=== PATIENT | male | born 1980 | race Caucasian/White ===

== ENCOUNTER 2016-12-11 21:16 | Emergency (ER) | payer OTHER ==
[2016-12-11 21:24] VITALS: RESP 18; TEMP 98.2
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
--- NOTE | 2016-12-11 22:06 | XR ---
EXAMINATION TYPE: XR ankle complete LT DATE OF EXAM: 12/11/2016 9:58 PM COMPARISON: NONE HISTORY: Ankle pain TECHNIQUE: 3 views FINDINGS: Ankle mortise is anatomic. I see no fracture nor dislocation. Joint spaces are fairly miguel angel l. IMPRESSION: Negative left ankle exam.
[2016-12-11] MEDS ORDERED: ACETAMINOPHEN TAB 500 MG TAB PO STA (22:11)
--- NOTE | 2016-12-11 22:24 | XR ---
EXAMINATION TYPE: XR foot complete LT DATE OF EXAM: 12/11/2016 10:13 PM COMPARISON: NONE HISTORY: Slipped in shower. Pain. TECHNIQUE: 3 views FINDINGS: I see no fracture nor dislocation. Metatarsals are intact. Joint spaces are normal. IMPRESSION: Negative left foot exam.
[2016-12-11] MEDS ORDERED: IBUPROFEN 400 MG TAB PO STA (22:31)
[2016-12-11 22:56] VITALS: BP 129/66; PULSE 90
== END 2016-12-11 22:40 | disposition home or self-care (01) ==
LOC: EC 21:16
DX: S93.402A Sprain of unspecified ligament of left ankle, initial encounter (principal); F17.200 Nicotine dependence, unspecified, uncomplicated; Z79.899 Other long term (current) drug therapy; Z88.6 Allergy status to analgesic agent; Z91.030 Bee allergy status; W18.49XA Other slipping, tripping and stumbling without falling, initial encounter; Y92.002 Bathroom of unspecified non-institutional (private) residence as the place of occurrence of the external cause
CPT/HCPCS: 99283

== ENCOUNTER 2018-01-08 21:03 | Emergency (ER) | payer OTHER ==
[2018-01-08 21:23] VITALS: RESP 18; TEMP 98
--- NOTE | 2018-01-08 22:12 | XR ---
EXAMINATION TYPE: XR Hip RT and AP Pelvis DATE OF EXAM: 01/08/2018 COMPARISON: NONE HISTORY: Hip pain TECHNIQUE: A single AP view of the pelvis is obtained. Two views of the right hip are obtained. FINDINGS: The pelvic ring is intact. Proximal right femur and hip joint are intact. There is no sign of hip dysplasia. Sacroiliac joints appear normal. CONCLUSION: Normal pelvis and right hip exam.
[2018-01-08 23:10] VITALS: BP 132/68; PULSE 84
[2018-01-08] MEDS ORDERED: predniSONE 20 MG TAB PO STA (23:52)
[2018-01-08] MEDS ORDERED: IBUPROFEN 600 MG STARTER PACK 4 TAB BTL PO STA (23:53)
--- NOTE | 2018-01-08 23:56 | ED ---
General Adult HPI - General Chief complaint: Extremity Problem,Nontraumatic Stated complaint: right hip pain Time Seen by Provider: 01/08/18 21:52 Source: patient, family, RN notes reviewed, old records reviewed Mode of arrival: ambulatory Limitations: no limitations - History of Present Illness Initial comments: Chief complaint history of present illness a 37-year-old male to complaint of right hip area pain. Ongoing for several weeks. He is seeing his chiropractor' s been manipulating. Discomfort increased with walking. No direct injury. No fever. No rashes. No difficulty urinating or bowel movements. The patient is a disabled . Not currently employed. Denies heavy lifting - Related Data Home Medications Medication Instructions Recorded Confirmed Ibuprofen [Motrin] 800 mg PO Q8H PRN 10/04/17 01/08/18 Omeprazole 20 mg PO DAILY 10/04/17 01/08/18 Ranitidine HCl 150 mg PO DAILY 10/04/17 01/08/18 Zoloft (Unknown Dose) 2 tab PO DAILY 10/04/17 01/08/18 Previous Rx's Medication Instructions Recorded Ibuprofen [Motrin] 600 mg PO Q6HR PRN #20 tab 01/08/18 methylPREDNISolone Dose Pack 4 mg PO DIRECTED #21 package 01/08/18 [Medrol Dose Pack] Allergies Allergy/AdvReac Type Severity Reaction Status Date / Time ketorolac tromethamine Allergy Rash/Hives Verified 10/04/17 23:01 [From Toradol] naproxen Allergy Nausea & Verified 10/04/17 23:01 Vomiting & Diarrhea venom-honey bee Allergy Unknown Verified 10/04/17 23:01 [bee venom (honey bee)] Review of Systems ROS Statement: Those systems with pertinent positive or pertinent negative responses have been documented in the HPI. Review of systems denies headache chest pain shortness breath GI/ problems. His complaint is that of the right hip area. He does have a past history of sciatica but this is different per patient. All systems are reviewed. Past medical problems significant for chronic knee pain, sciatica, surgeries appendectomy couple tunnel release. He has ALLERGIES to ketorolac, naproxen and be venom. The patient occasionally uses alcohol. Smokes daily. Encouraged to stop. ROS Other: All systems not noted in ROS Statement are negative. Past Medical History Past Medical History: No Reported History Additional Past Medical History / Comment(s): chronic knee pain History of Any Multi-Drug Resistant Organisms: MRSA Date of last positivie culture/infection: 2008 MDRO Source:: thumb Past Surgical History: Appendectomy, Orthopedic Surgery Additional Past Surgical History / Comment(s): carpel tunnnel release, vascectomy, skin graft knee surg x4 Past Psychological History: PTSD Smoking Status: Current every day smoker Past Alcohol Use History: Occasional Past Drug Use History: None Reported General Exam - General Exam Comments Initial Comments: Pertinent physical exam. The patient complains of pain to the right hip area. Palpation increases discomfort. No bumps lumps bruises or rashes noted. The patient's range of motion is decreased secondary to the pain to the hip area. Not to the lumbar spine or sciatic region. Patient denying chest pain shortness breath GI or robins. Neurovascular status feet are intact. Pain with active and passive range of motion testing. Afebrile no chills. Vital signs temperature 90.8 pulse 84 respiratory rate 18 pulse ox 99% room air blood pressure 132/68 Limitations: no limitations Course Vital Signs 01/08/18 01/08/18 21:19 23:08 Temperature 98.0 F Pulse Rate 93 84 Respiratory 18 18 Rate Blood Pressure 137/85 132/68 O2 Sat by Pulse 97 99 Oximetry Medical Decision Making - Medical Decision Making Medical decision making; patient's here for chronic right hip area pain no injuries. X-rays of the hip area were done as well as pelvis and reviewed by radiologist Dr. Serrano. His final results is no acute irregularity. I discussed findings with the patient. He'll be placed on ibuprofen 600 every 6 hours and a Medrol Dosepak. Patient advised to follow-up with family physician. Disposition Clinical Impression: Hip pain, right Disposition: HOME SELF-CARE Condition: Fair Instructions: Hip Pain (ED) Additional Instructions: Gentle range of motion. Continue with ibuprofen and Medrol Dosepak. Follow-up with family physician. Prescriptions: Ibuprofen [Motrin] 600 mg PO Q6HR PRN #20 tab PRN Reason: Pain methylPREDNISolone Dose Pack [Medrol Dose Pack] 4 mg PO DIRECTED #21 package Referrals: Nik Paula MD [Primary Care Provider] - 1-2 days Time of Disposition: 23:56
== END 2018-01-09 00:07 | disposition home or self-care (01) ==
LOC: EC 21:03
DX: M25.551 Pain in right hip (principal); F17.200 Nicotine dependence, unspecified, uncomplicated; F43.10 Post-traumatic stress disorder, unspecified; Z86.14 Personal history of Methicillin resistant Staphylococcus aureus infection; Z98.890 Other specified postprocedural states; Z79.899 Other long term (current) drug therapy; Z88.6 Allergy status to analgesic agent; Z91.030 Bee allergy status
CPT/HCPCS: 73502; 99284; J7512

== ENCOUNTER 2018-12-28 16:57 | Emergency (ER) | payer MEDICARE, OTHER ==
[2018-12-28 17:07] VITALS: TEMP 98.8
--- NOTE | 2018-12-28 17:56 | ED ---
General Adult HPI - General Chief complaint: Extremity Injury, Upper Stated complaint: Elbow injury,Fall Time Seen by Provider: 12/28/18 17:07 Source: patient, RN notes reviewed, old records reviewed Mode of arrival: ambulatory Limitations: no limitations - History of Present Illness Initial comments: Patient is a 38-year-old male who presents today with left elbow pain. Patient reports that he fell on his left elbow causing pain with any range of motion. Symptoms started earlier today. Patient states that he was walking tripped and fell in parking lot. Patient states that he fell on his left elbow 1 week prior. Patient states he's had no previous orthopedic injuries. He denies any chest pain shortness of breath, nausea, vomiting, fevers, chills. Denies any abrasions over the arm. He reports that he is numbness and tingling down the hand. - Related Data Home Medications Medication Instructions Recorded Confirmed Ibuprofen [Motrin] 800 mg PO Q8H PRN 10/04/17 01/08/18 Omeprazole 20 mg PO DAILY 10/04/17 01/08/18 Ranitidine HCl 150 mg PO DAILY 10/04/17 01/08/18 Zoloft (Unknown Dose) 2 tab PO DAILY 10/04/17 01/08/18 Previous Rx's Medication Instructions Recorded Ibuprofen [Motrin] 600 mg PO Q6HR PRN #20 tab 01/08/18 methylPREDNISolone Dose Pack 4 mg PO DIRECTED #21 package 01/08/18 [Medrol Dose Pack] Allergies Allergy/AdvReac Type Severity Reaction Status Date / Time ketorolac tromethamine Allergy Rash/Hives Verified 12/28/18 17:08 [From Toradol] naproxen Allergy Nausea & Verified 12/28/18 17:08 Vomiting & Diarrhea venom-honey bee Allergy Unknown Verified 12/28/18 17:08 [bee venom (honey bee)] Review of Systems ROS Statement: Those systems with pertinent positive or pertinent negative responses have been documented in the HPI. ROS Other: All systems not noted in ROS Statement are negative. Past Medical History Past Medical History: No Reported History Additional Past Medical History / Comment(s): chronic knee pain History of Any Multi-Drug Resistant Organisms: MRSA Date of last positivie culture/infection: 2008 MDRO Source:: thumb Past Surgical History: Appendectomy, Orthopedic Surgery Additional Past Surgical History / Comment(s): carpel tunnnel release, vascectomy, skin graft knee surg x4 Past Psychological History: PTSD Smoking Status: Current every day smoker Past Alcohol Use History: Occasional Past Drug Use History: None Reported General Exam - General Exam Comments Initial Comments: 38-year-old male. Alert and oriented 3. Patient appears in no acute distress. Limitations: no limitations General appearance: alert, in no apparent distress Head exam: Present: atraumatic, normocephalic, normal inspection Eye exam: Present: normal appearance, PERRL, EOMI. Absent: scleral icterus, conjunctival injection, periorbital swelling ENT exam: Present: normal exam, mucous membranes moist Neck exam: Present: normal inspection. Absent: tenderness, meningismus, lymphadenopathy Respiratory exam: Present: normal lung sounds bilaterally. Absent: respiratory distress, wheezes, rales, rhonchi, stridor Cardiovascular Exam: Present: regular rate GI/Abdominal exam: Present: soft, normal bowel sounds. Absent: distended, tenderness, guarding, rebound, rigid Extremities exam: Present: normal inspection, full ROM, normal capillary refill. Absent: tenderness, pedal edema, joint swelling, calf tenderness Left Upper Arm exam: Present: normal inspection, full ROM Elbow exam: Present: normal inspection, tenderness (over olecranon). Absent: full ROM (Pain with ROM, pain with extension) Forearm Wrist exam: Present: normal inspection, full ROM Hand Wrist exam: Present: normal inspection, full ROM Vascular: Present: normal capillary refill Back exam: Present: normal inspection Neurological exam: Present: alert, oriented X3, CN II-XII intact Psychiatric exam: Present: normal affect, normal mood Skin exam: Present: warm, dry, intact, normal color. Absent: rash Course Vital Signs 12/28/18 17:05 Temperature 98.8 F Pulse Rate 101 H Respiratory 16 Rate Blood Pressure 147/83 O2 Sat by Pulse 95 Oximetry Medical Decision Making - Medical Decision Making 38-year-old male presents today with left elbow pain after falling on it. Patient reports he fell on his left olecranon. He has range of motion noted. Normal sensation distally. He reports pain within the triceps and shooting down the hand. X-ray of the elbow was completed. This is negative for any acute process. Patient informed of these results. Patient placed in Fernando wrap and advised to use rest ice and elevate the elbow. Discussed falling up with orthopedic. All questions answered. - Radiology Data Radiology results: report reviewed Negative left elbow exam. Disposition Clinical Impression: Left elbow contusion Disposition: HOME SELF-CARE Condition: Good Instructions (If sedation given, give patient instructions): Elbow Sprain (ED) Additional Instructions: Follow-up with your primary care physician. Rest, ice, and elevate elbow. Take Tylenol for pain. Return to emergency department if any alarming signs or symptoms occur. Patient should return to emergency department if any alarming signs or symptoms occur. Is patient prescribed a controlled substance at d/c from ED?: No Referrals: Nik Paula MD [Primary Care Provider] - 1-2 days Hawk Rollins MD [STAFF PHYSICIAN] - 1-2 days Time of Disposition: 18:10
--- NOTE | 2018-12-28 18:02 | XR ---
EXAMINATION TYPE: XR elbow complete LT DATE OF EXAM: 12/28/2018 COMPARISON: NONE HISTORY: Elbow pain TECHNIQUE: 3 views FINDINGS: I see no fracture nor dislocation. Joint spaces are normal. There is no sign of joint effus ion. IMPRESSION: Negative left elbow exam.
[2018-12-28] MEDS ORDERED: Acetaminophen-Codeine 300-30mg TAB PO STA (18:08)
[2018-12-28 18:41] VITALS: BP 129/84; PULSE 88; RESP 18
== END 2018-12-28 18:35 | disposition home or self-care (01) ==
LOC: EC 16:57
DX: S50.02XA Contusion of left elbow, initial encounter (principal); F43.10 Post-traumatic stress disorder, unspecified; F17.200 Nicotine dependence, unspecified, uncomplicated; Z79.899 Other long term (current) drug therapy; Z88.6 Allergy status to analgesic agent; Z91.030 Bee allergy status; W00.0XXA Fall on same level due to ice and snow, initial encounter
CPT/HCPCS: 99284

== ENCOUNTER → 2019-01-06 | Outpatient (CLI) | payer MEDICARE, OTHER ==
[2019-01-06 16:50] LABS: Basophils # (A) 0.1 k/uL (0-0.2); Basophils % (A) 1 %; Eosinophils # (A) 0.2 k/uL (0-0.7); Eosinophils % (A) 3 %; HCT 48.9 % (39.0-53.0); HGB 15.8 gm/dL (13.0-17.5); Lymphocytes % (A) 34 %; MCH 29.8 pg (25.0-35.0); MCHC 32.3 g/dL (31.0-37.0); Mean Platelet Volume 6.8; Monocytes # (A) 0.5 k/uL (0-1.0); Monocytes % (A) 6 %; Neutrophils # (A) 4.9 k/uL (1.3-7.7); Neutrophils % (A) 55 %; Platelet Count 309 k/uL (150-450); RBC 5.32 m/uL (4.30-5.90); RDW 13.3 % (11.5-15.5)
[2019-01-07 02:15] LABS: Calcium 9.5 mg/dL (8.7-10.3); Potassium 4.2 mmol/L (3.5-5.5)
== END | disposition home or self-care (01) ==
LOC: LABWHC1 16:07
PROVIDERS: ATTEND Orthopaedic Surgery
DX: Z01.818 Encounter for other preprocedural examination (principal)
CPT/HCPCS: 36415; 80048; 85025; 93005

== ENCOUNTER 2019-02-12 11:57 | Emergency (ER) | payer MEDICARE, OTHER ==
[2019-02-12 12:13] VITALS: TEMP 98.1
[2019-02-12] MEDS ORDERED: DIPH,PERTUS(ACELL)TETVAC-LF 0.5 ML VIAL IM ONE (13:00)
[2019-02-12] MEDS ORDERED: predniSONE 50 MG TAB PO STA ×2 (13:00→13:37)
--- NOTE | 2019-02-12 13:32 | ED ---
General Adult HPI - General Chief complaint: Skin/Abscess/Foreign Body Stated complaint: Hand swolled Time Seen by Provider: 02/12/19 12:14 Source: patient, RN notes reviewed, old records reviewed Mode of arrival: ambulatory Limitations: no limitations - History of Present Illness Initial comments: 38-year-old male patient with no pertinent past medical history presents to ED with primary complaint of ring stuck on left fourth digit. Patient reports that approximately 3 days ago he began developing a minor ALLERGIC reaction after fishing. Patient reports that he had some minor swelling and skin excoriations on the dorsal aspect of his hands bilaterally and the medial aspect of his left ankle. Patient reports that he was seen by his primary care physician and started on Benadryl for this problem. Patient states that last 36 hours he has had some swelling in his left fourth digit of his finger resulting in his ring being stuck on his finger. Patient denies any other complaints. Patient denies any facial swelling or difficulty breathing. Patient denies any abdominal pain nausea vomiting or diarrhea. Systemic: Pt denies fatigue, myalgia, fever/chills. Pt denies weakness, night sweats, weight loss. Neuro: Pt denies headache, visual disturbances, syncope or pre-syncope. HEENT: Pt denies ocular discharge or irritation, otalgia, rhinorrhea, pharyngitis or notable lymphadenopathy. Cardiopulmonary: Pt denies chest pain, SOB, heart palpitations, dyspnea on exertion. Abdominal/GI: Pt denies abdominal pain, n/v/d. : Pt denies dysuria, burning w/ urination, frequency/urgency. Denies new onset urinary or bowel incontinence. MSK: Pt denies myalgia, loss of strength or function in extremities. Neuro: Pt denies new onset weakness, paresthesias. - Related Data Home Medications Medication Instructions Recorded Confirmed Ibuprofen [Motrin] 800 mg PO Q8H PRN 10/04/17 01/08/18 Omeprazole 20 mg PO DAILY 10/04/17 01/08/18 Ranitidine HCl 150 mg PO DAILY 10/04/17 01/08/18 Zoloft (Unknown Dose) 2 tab PO DAILY 10/04/17 01/08/18 Previous Rx's Medication Instructions Recorded Ibuprofen [Motrin] 600 mg PO Q6HR PRN #20 tab 01/08/18 methylPREDNISolone Dose Pack 4 mg PO DIRECTED #21 package 01/08/18 [Medrol Dose Pack] predniSONE 50 mg PO DAILY #4 tab 02/12/19 Allergies Allergy/AdvReac Type Severity Reaction Status Date / Time ketorolac tromethamine Allergy Rash/Hives Verified 12/28/18 17:08 [From Toradol] naproxen Allergy Nausea & Verified 12/28/18 17:08 Vomiting & Diarrhea venom-honey bee Allergy Unknown Verified 12/28/18 17:08 [bee venom (honey bee)] Review of Systems ROS Statement: Those systems with pertinent positive or pertinent negative responses have been documented in the HPI. ROS Other: All systems not noted in ROS Statement are negative. Past Medical History Past Medical History: No Reported History Additional Past Medical History / Comment(s): chronic knee pain History of Any Multi-Drug Resistant Organisms: MRSA Date of last positivie culture/infection: 2008 MDRO Source:: thumb Past Surgical History: Appendectomy, Orthopedic Surgery Additional Past Surgical History / Comment(s): carpel tunnnel release, vascectomy, skin graft knee surg x4, hip surgery Past Psychological History: Anxiety, PTSD Smoking Status: Former smoker Past Alcohol Use History: Occasional Past Drug Use History: None Reported General Exam - General Exam Comments Initial Comments: Constitutional: NAD, AOX3, Pt has pleasant affect. HEENT: NC/AT, trachea midline, neck supple, no lymphadenopathy. Posterior pharynx non erythematous, without exudates. External ears appear normal, without discharge. Mucous membranes moist. Eyes PERRLA, EOM intact. There is no scleral icterus. No pallor noted. Cardiopulmonary: RRR, no murmurs, rubs or gallops, no JVD noted. Lungs CTAB in anterior and posterior fontaine. No peripheral edema. Abdominal exam: Abdomen soft and non-distended. Abdomen non-tender to palpation in all 4 quadrants. Bowel sounds active in LLQ. No hepatosplenomegaly. No ecchymosis Neuro: CN II-XII grossly intact. No nuchal rigidity. MSK: No posterior calf tenderness bilaterally, homans sign negative bilaterally. Posterior tibialis and radial pulse +2 bilaterally. Sensation intact in upper and lower extremities. Full active ROM in upper and lower extremities, 5/5 stregnth. Derm: Mild amount of swelling on 4th digit of right hand, ring unable to be removed. Scabbed skin excoriations noted on dorsal aspect of hands bilaterally, medial aspect of left ankle. No other areas of rash noted. No angioedema. Limitations: no limitations Course Vital Signs 02/12/19 12:10 Temperature 98.1 F Pulse Rate 103 H Respiratory 18 Rate Blood Pressure 136/79 O2 Sat by Pulse 98 Oximetry Medical Decision Making - Medical Decision Making 38-year-old male patient with no pertinent past medical history presents to ED with primary complaint of ring stuck on left fourth digit. Patient reports that approximately 3 days ago he began developing a minor ALLERGIC reaction after fishing. Patient reports that he had some minor swelling and skin excoriations on the dorsal aspect of his hands bilaterally and the medial aspect of his left ankle. Patient reports that he was seen by his primary care physician and started on Benadryl for this problem. Patient states that last 36 hours he has had some swelling in his left fourth digit of his finger resulting in his ring being stuck on his finger. Patient denies any other complaints. Patient denies any facial swelling or difficulty breathing. Patient denies any abdominal pain nausea vomiting or diarrhea. Pt VSS, afebrile. Physical exam displayed: Mild amount of swelling on 4th digit of right hand, ring unable to be removed. Scabbed skin excoriations noted on dorsal aspect of hands bilaterally, medial aspect of left ankle. No other areas of rash noted. No angioedema. Ring was cut and removed. Patient able refill less than 2 seconds affected digit. Full active range of motion of digit. Patient minutes to one dose of prednisone in ED, tetanus updated. Patient will be placed on 4 additional days of prednisone. Patient will continue to take Benadryl as needed. Patient will follow up with primary care provider in 1-2 days for continued evaluation of ALLERGIC reaction. Pt does have epipen at home and is well educated on s/sx of anaphylaxis. Case discussed with Dr. Rogers. Disposition Clinical Impression: Allergic reaction Disposition: HOME SELF-CARE Condition: Stable Instructions (If sedation given, give patient instructions): Acute Rash (ED) Additional Instructions: Patient to adhere to previously discussed treatment plan and will take medication(s) as directed. Patient to follow up with PCP in 1-2 days. Patient to return to ED if symptoms do not improve. Please take steroids as prescribed. Please use Benadryl as needed. Please follow-up with primary care provider tomorrow. Please return immediately if symptoms worsen anyway. Prescriptions: predniSONE 50 mg PO DAILY #4 tab Is patient prescribed a controlled substance at d/c from ED?: No Referrals: Nik Paula MD [Primary Care Provider] - 1-2 days
[2019-02-12 13:43] VITALS: BP 103/84; PULSE 60; RESP 20
== END 2019-02-12 13:49 | disposition home or self-care (01) ==
LOC: EC 11:57
DX: T78.40XA Allergy, unspecified, initial encounter (principal); Z23 Encounter for immunization; S60.512A Abrasion of left hand, initial encounter; S60.511A Abrasion of right hand, initial encounter; S90.512A Abrasion, left ankle, initial encounter; F41.9 Anxiety disorder, unspecified; Z79.899 Other long term (current) drug therapy; Z88.5 Allergy status to narcotic agent; Z88.6 Allergy status to analgesic agent; Z91.030 Bee allergy status; Z87.891 Personal history of nicotine dependence; W49.04XA Ring or other jewelry causing external constriction, initial encounter
CPT/HCPCS: 90715; 99283; 90471; J7512

== ENCOUNTER 2019-08-21 22:33 | Observation (INO) | payer MEDICARE, OTHER ==
[2019-08-22] MEDS ORDERED: CLINDAMYCIN 600 MG in DEXTROSE 5% IN WATER 50 ML IVPB STA ×2 (01:16)
--- NOTE | 2019-08-22 01:30 | XR ---
EXAMINATION TYPE: XR elbow complete LT DATE OF EXAM: 08/22/2019 COMPARISON: 12/28/2018 HISTORY: Pain and swelling TECHNIQUE: 3 views FINDINGS: I see no fracture nor dislocation. There is soft tissue swelling over the olecranon process of the ulna. There is no sign of elbow joint effusion. IMPRESSION: Significant posterior soft tissue swelling that could relate to olecranon bursitis. No ev idence of a foreign body. Soft tissue swelling is a change compared to old exam. No fracture.
--- NOTE | 2019-08-22 02:25 | ED ---
Skin/Abscess/FB HPI - General Source: patient Mode of arrival: ambulatory Limitations: no limitations <Mehreen Perrin - Last Filed: 08/22/19 04:35> <Pao Hobson - Last Filed: 08/23/19 06:25> - General Chief complaint: Skin/Abscess/Foreign Body Stated complaint: L Elbow Swelling Time Seen by Provider: 08/22/19 01:48 - History of Present Illness Initial comments: 38 year male presents emergency department for evaluation of left elbow pain and swelling. Patient states that approximately 10 days ago he had a sliver they removed from his left elbow, patient states that yesterday he developed redness and then overnight there is significant swelling over the point of the elbow he states it is extending down towards the forearm. Patient states it hurts at maximum flexion and extension. Patient denies a fever or chills night sweats or flulike symptoms. Patient denies any significant comorbidities. Patient states last tetanus was in 2009. Remaining ROS (-). (Mehreen Perrin) - Related Data Home Medications Medication Instructions Recorded Confirmed Aspirin EC [Ecotrin] 325 mg PO DIRECTED PRN 08/22/19 08/22/19 EPINEPHrine (Auto Inject) [Epipen] 0.3 mg IM ONCE PRN 08/22/19 08/22/19 Gabapentin [Neurontin] 400 mg PO TID 08/22/19 08/22/19 HYDROcodone/APAP 10-325MG [[place] 1 tab PO Q4HR PRN 08/22/19 08/22/19 10-325] Methocarbamol [Robaxin] 750 mg PO QID PRN 08/22/19 08/22/19 PARoxetine HCL [Paxil] 60 mg PO DAILY 08/22/19 08/22/19 Prazosin HCl 6 mg PO HS 08/22/19 08/22/19 traZODone HCL [Desyrel] 100 mg PO HS 08/22/19 08/22/19 Allergies Allergy/AdvReac Type Severity Reaction Status Date / Time ketorolac tromethamine Allergy Rash/Hives Verified 08/22/19 09:53 [From Toradol] naproxen Allergy Nausea & Verified 08/22/19 09:53 Vomiting & Diarrhea venom-honey bee Allergy Unknown Verified 08/22/19 09:53 [bee venom (honey bee)] Review of Systems ROS Other: All systems not noted in ROS Statement are negative. <AydinMehreen L - Last Filed: 08/22/19 04:35> ROS Other: All systems not noted in ROS Statement are negative. <HobsonPao P - Last Filed: 08/23/19 06:25> ROS Statement: Those systems with pertinent positive or pertinent negative responses have been documented in the HPI. Past Medical History Past Medical History: No Reported History Additional Past Medical History / Comment(s): chronic knee pain History of Any Multi-Drug Resistant Organisms: MRSA Date of last positivie culture/infection: 2008 MDRO Source:: thumb Past Surgical History: Appendectomy, Orthopedic Surgery Additional Past Surgical History / Comment(s): carpel tunnnel release, vascectomy, skin graft knee surg x4, hip surgery Past Psychological History: Anxiety, PTSD Smoking Status: Former smoker Past Alcohol Use History: Occasional Past Drug Use History: None Reported <Mehreen Perrin - Last Filed: 08/22/19 04:35> - Past Family History Father Family Medical History: No Reported History Additional Family Medical History / Comment(s): Father is alive at age 61 was no major medical problems. Mother Family Medical History: No Reported History Additional Family Medical History / Comment(s): Mother is alive at age 56 with history of spinal surgeries and neurological disorders. Patient's troponin is and one sister with no major medical problems. Patient has 1 son and 1 daughter with no major medical problems. <Pao Hobson P - Last Filed: 08/23/19 06:25> General Exam Limitations: no limitations <AydinSoheilaMehreen L - Last Filed: 08/22/19 04:35> - General Exam Comments Initial Comments: General: The patient is awake and alert, in no distres Eye: Pupils are equal, round and reactive to light, extra-ocular movements are intact. No nystagmus. There is normal conjunctiva bilaterally. No signs of icterus. Cardiovascular: There is a regular rate and rhythm. No murmur, rub or gallop is appreciated. Respiratory: Lungs are clear to auscultation, respirations are non-labored, breath sounds are equal. No wheezes, stridor, rales, or rhonchi. Musculoskeletal: Upon inspection the elbows bilaterally there is significant swelling over the point of the left elbow. small break in skin. Pain with flexion at maximum degree and extension. No pain out of proportion. No tenderness to palpation over the joint line. Strength 5/5. Sensation intact. Radial pulses equal bilaterally 2+. Neurological: A&O x 3. CN II-XII intact grossly, There are no obvious motor or sensory deficits. Coordination appears grossly intact. Speech is normal. Skin: Skin is warm and dry and no rashes or lesions are noted. Psychiatric: Cooperative, appropriate mood & affect, normal judgment. (Mehreen Perrin) Course Vital Signs 08/21/19 08/22/19 08/22/19 22:39 02:44 04:46 Temperature 98 F Pulse Rate 91 76 79 Pulse Rate [ Bilateral Dorsalis Pedis] Respiratory 20 18 18 Rate Blood Pressure 130/93 128/81 130/91 Blood Pressure [Left Arm Supine] O2 Sat by Pulse 96 96 97 Oximetry 08/22/19 08/22/19 08/22/19 06:39 15:00 15:27 Temperature 97.9 F 97.9 F Pulse Rate 73 Pulse Rate [ 88 Bilateral Dorsalis Pedis] Respiratory 18 17 17 Rate Blood Pressure 137/92 Blood Pressure 136/80 [Left Arm Supine] O2 Sat by Pulse 97 98 Oximetry Medical Decision Making - Lab Data Result diagrams: 08/22/19 02:13 08/22/19 02:13 <Mehreen Perrin - Last Filed: 08/22/19 04:35> - Lab Data Result diagrams: 08/22/19 02:13 08/22/19 02:13 <Pao Hobson - Last Filed: 08/23/19 06:25> - Medical Decision Making 38yo male presents for evaluation of left elbow redness and swelling. Obvious bursitis with surrounding cellulitis on physical examination. Given the extensiveness the cellulitis if the patient should be admitted for IV antibiotics. Patient is given 600 mg of clindamycin in the emergency department. labs stable, no leukocytosis. Patient appears nontoxic. No vital signs or labs consistent with sepsis. Patient case discussed with attending who spoke with admitting provider. Ortho on consult. (Mehreen Perrin) Patient care discussed with Dr. Mckay who agrees with plan for admission with orthopedic consultation. (Pao Hobson) - Lab Data Lab Results 08/22/19 08/22/19 08/22/19 Range/Units 02:13 02:13 02:13 WBC 10.0 (3.8-10.6) k/uL RBC 4.74 (4.30-5.90) m/uL Hgb 12.8 L (13.0-17.5) gm/dL Hct 43.2 (39.0-53.0) % MCV 91.3 (80.0-100.0) fL MCH 27.0 (25.0-35.0) pg MCHC 29.6 L (31.0-37.0) g/dL RDW 13.2 (11.5-15.5) % Plt Count 263 (150-450) k/uL Neutrophils % 57 % Lymphocytes % 29 % Monocytes % 6 % Eosinophils % 4 % Basophils % 1 % Neutrophils # 5.7 (1.3-7.7) k/uL Lymphocytes # 2.9 (1.0-4.8) k/uL Monocytes # 0.6 (0-1.0) k/uL Eosinophils # 0.4 (0-0.7) k/uL Basophils # 0.1 (0-0.2) k/uL Sodium 139 (137-145) mmol/L Potassium 4.2 (3.5-5.1) mmol/L Chloride 106 (98-107) mmol/L Carbon Dioxide 22 (22-30) mmol/L Anion Gap 11 mmol/L BUN 17 (9-20) mg/dL Creatinine 1.02 (0.66-1.25) mg/dL Est GFR (CKD-EPI)AfAm >90 (>60 ml/min/1.73 sqM) Est GFR (CKD-EPI)NonAf >90 (>60 ml/min/1.73 sqM) Glucose 103 H (74-99) mg/dL Plasma Lactic Acid [place] 1.5 (0.7-2.0) mmol/L Calcium 9.6 (8.4-10.2) mg/dL Total Bilirubin 0.2 (0.2-1.3) mg/dL AST 32 (17-59) U/L ALT 38 (21-72) U/L Alkaline Phosphatase 63 (38-126) U/L Total Protein 7.3 (6.3-8.2) g/dL Albumin 4.3 (3.5-5.0) g/dL Disposition Is patient prescribed a controlled substance at d/c from ED?: No Time of Disposition: 02:56 Decision to Admit Reason: Admit from EC Decision Date: 08/22/19 Decision Time: 02:56 <Mehreen Perrin - Last Filed: 08/22/19 04:35> <Pao Hobson - Last Filed: 08/23/19 06:25> Clinical Impression: Septic bursitis, Cellulitis, Left elbow pain Disposition: ADMITTED IP TO THIS HOSP Condition: Stable
[2019-08-22 02:35] LABS: Basophils # (A) 0.1 k/uL (0-0.2); Basophils % (A) 1 %; Eosinophils # (A) 0.4 k/uL (0-0.7); Eosinophils % (A) 4 %; HCT 43.2 % (39.0-53.0); HGB 12.8 gm/dL (13.0-17.5); Lymphocytes # (A) 2.9 k/uL (1.0-4.8); Lymphocytes % (A) 29 %; MCHC 29.6 g/dL (31.0-37.0); MCV 91.3 fL (80.0-100.0); Mean Platelet Volume 6.8; Monocytes # (A) 0.6 k/uL (0-1.0); Monocytes % (A) 6 %; Neutrophils # (A) 5.7 k/uL (1.3-7.7); Neutrophils % (A) 57 %; Platelet Count 263 k/uL (150-450); RBC 4.74 m/uL (4.30-5.90); RDW 13.2 % (11.5-15.5)
[2019-08-22 02:42] LABS: ALT 38 U/L (21-72); AST 32 U/L (17-59); African American GFR (CKD) >90 (>60 ml/min/1.73 sqM); Albumin 4.3 g/dL (3.5-5.0); Alkaline Phosphatase 63 U/L (38-126); Anion Gap 11 mmol/L; Blood Urea Nitrogen 17 mg/dL (9-20); Calcium 9.6 mg/dL (8.4-10.2); Carbon Dioxide 22 mmol/L (22-30); Chloride 106 mmol/L (98-107); Glucose 103 mg/dL (74-99); Non-African American GFR(CKD) >90 (>60 ml/min/1.73 sqM); Potassium 4.2 mmol/L (3.5-5.1); Sodium 139 mmol/L (137-145); Total Bilirubin 0.2 mg/dL (0.2-1.3); Total Protein 7.3 g/dL (6.3-8.2)
[2019-08-22] MEDS ORDERED: NALOXONE 0.4 MG/ML 1 ML VIAL IV PRN (02:52)
[2019-08-22] MEDS ORDERED: ACETAMINOPHEN TAB 325 MG TAB PO PRN (02:52)
[2019-08-22] MEDS: HYDROcodone/APAP 7.5-325MG 1 EACH TAB PO PRN ×2 (04:45→09:24)
[2019-08-22] MEDS: SODIUM CHLORIDE 0.9% 1,000 ML IV SCH ×2 (04:45→14:23)
--- NOTE | 2019-08-22 09:22 | P.CNOR ---
History of Present Illness - [facility] Consult date: 08/22/19 History of present illness: This patient is a 38-year-old male past medical history of MRSA that presented to [facility] ER last night on 08/21/19 for complaints of left elbow pain. The patient states about 7-10 days ago he noticed a sliver in his elbow, after he had been helping his friend work on his home. He states he pulled this sliver out without any issues. He states he began to notice swelling, erythema, warmth of the left elbow yesterday. He states the pain had increased throughout the day. He also started to notice the erythema was extending from his elbow into his lower forearm. Therefore, he decided to present to the emergency department for further evaluation. The patient was placed on IV clindamycin in the emergency department, the patient was admitted to internal medicine with a consult placed to orthopedic surgery. The time of exam, the patient localizes pain to his left elbow with radiation into his mid forearm. He denies pain in his hand, wrist, shoulder. He states he otherwise feels well. He denies chest pain, shortness breath, nausea, vomiting, fevers, chills, feelings of generalized malaise. Vital signs stable. Past Medical History Past Medical History: No Reported History Additional Past Medical History / Comment(s): chronic knee pain History of Any Multi-Drug Resistant Organisms: MRSA Year Discovered:: 2008 MDRO Source:: thumb Past Surgical History: Appendectomy, Orthopedic Surgery Additional Past Surgical History / Comment(s): carpel tunnnel release, vascectomy, skin graft knee surg x4, hip surgery Past Psychological History: Anxiety, PTSD Smoking Status: Former smoker Past Alcohol Use History: Occasional Past Drug Use History: None Reported Medications and Allergies Allergies Allergy/AdvReac Type Severity Reaction Status Date / Time ketorolac tromethamine Allergy Rash/Hives Verified 08/21/19 22:42 [From Toradol] naproxen Allergy Nausea & Verified 08/21/19 22:42 Vomiting & Diarrhea venom-honey bee Allergy Unknown Verified 08/21/19 22:42 [bee venom (honey bee)] Physical Examination On examination, the patient is sitting up in bed in no apparent distress. He is alert and oriented 3. His head appears normocephalic and atraumatic. His breathing appears nonlabored. On inspection of the left elbow, there is diffuse swelling over the tip of the olecranon. There is also swelling and erythema extending into the mid forearm. There is fluctuance over the tip of the olecranon. There is tenderness to palpation of the elbow in the mid forearm. There is no tenderness to palpation of the shoulder, humerus, wrist, hand. There is no pain with passive range of motion of the wrist or fingers. Motor and sensory function are intact of the left upper extremity. Radial pulse palpable, the fingers and thumb are warm and well-perfused with brisk capillary refill. Results Elbow x-ray left 08/22/19: No acute fractures or bony abnormalities. Significant posterior soft tissue swelling. - Labs Labs: Abnormal Lab Results - Last 24 Hours (Table) 08/22/19 08/22/19 Range/Units 02:13 02:13 Hgb 12.8 L (13.0-17.5) gm/dL MCHC 29.6 L (31.0-37.0) g/dL Glucose 103 H (74-99) mg/dL H & H 08/22/19 Range/Units 02:13 Hgb 12.8 L (13.0-17.5) gm/dL Hct 43.2 (39.0-53.0) % Result Diagrams: 08/22/19 02:13 08/22/19 02:13 Assessment and Plan Assessment: Septic olecranon bursitis, left. Plan: - Clinical and x-ray findings were discussed with the patient. I recommended a bedside aspiration of the left olecranon bursa. The fluid was sent for cell count, culture, crystal analysis. A compressive Fernando wrap was applied following the aspiration. - Warm compresses to the left elbow. - Continue IV antibiotics and pain medication per admitting team. - We will continue to follow the patient while he remains inpatient and make recommendations as needed. Patient discussed with Dr. Cotter. Procedure: Verbal consent for an olecranon bursa aspiration was obtained. The skin over the posterior aspect of the olecranon was prepped with ChloraPrep. Using sterile technique, an 18-gauge needle was inserted directly into the olecranon bursa and 2 mL's of blood-tinged yellow fluid was aspirated. There was not purulence. The needle was withdrawn and a bandage was applied. Patient tolerated this well. A compressive was applied following this procedure. Fluid was sent for cell count, culture, crystal analysis.
[2019-08-22] MEDS ORDERED: METHOCARBAMOL 750 MG TAB PO PRN (11:04)
[2019-08-22 11:13] LABS: Appearance,BF Bloody; Color,BF Red; Nucleated Cells, Body Fluid 500 /uL; RBC, Body Fluid 64200 /uL
[2019-08-22 11:15] LABS: Mononuclear WBC,Body Fluid 15 %; Polynuclear WBC,Body Fluid 85 %; Total Cells Counted,Body Fluid 100
[2019-08-22] MEDS ORDERED: VANCOMYCIN IV PER PHARMACY 1 EACH MISC MISCELLANE SCH (11:15)
[2019-08-22] MEDS ORDERED: VANCOMYCIN 1,750 MG in SODIUM CHLORIDE 0.9% 500 ML 500 ML IVPB ONE (11:30)
[2019-08-22] MEDS: GABAPENTIN 400 MG CAP PO SCH ×3 (12:19→21:23)
[2019-08-22] MEDS: PARoxetine 20 MG TAB PO SCH (12:32)
[2019-08-22] MEDS: HYDROcodone/APAP 10-325MG 1 EACH TAB PO PRN ×3 (13:26→22:26)
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
[2019-08-22] MEDS: PIPERACILLIN-TAZOBACTAM 3.375 GM in SODIUM CHLORIDE 0.9% 100 ML IVPB SCH (18:01)
[2019-08-22] MEDS: VANCOMYCIN 1,750 MG in SODIUM CHLORIDE 0.9% 500 ML 500 ML IVPB SCH (21:21)
[2019-08-22] MEDS: HEPARIN SODIUM,PORCINE 5,000 UNIT/ML 1 ML VIAL SQ SCH (21:22)
[2019-08-22] MEDS: PRAZOSIN 1 MG CAP PO SCH (21:23)
[2019-08-22] MEDS: traZODone HCL 100 MG TAB PO SCH (21:23)
[2019-08-23] MEDS: SODIUM CHLORIDE 0.9% 1,000 ML IV SCH ×3 (00:04→20:08)
[2019-08-23] MEDS: PIPERACILLIN-TAZOBACTAM 3.375 GM in SODIUM CHLORIDE 0.9% 100 ML IVPB SCH ×3 (00:05→16:04)
[2019-08-23] MEDS: HYDROcodone/APAP 10-325MG 1 EACH TAB PO PRN ×4 (04:29→20:10)
[2019-08-23] MEDS: VANCOMYCIN 1,750 MG in SODIUM CHLORIDE 0.9% 500 ML 500 ML IVPB SCH ×3 (04:30→20:08)
--- NOTE | 2019-08-23 08:12 | P.PN ---
Subjective Progress Note Date: 08/23/19 This patient is a 38-year-old male past medical history of MRSA that presented to [facility] ER last night on 08/21/19 for complaints of left elbow pain. The patient states about 7-10 days ago he noticed a sliver in his elbow, after he had been helping his friend work on his home. He states he pulled this sliver out without any issues. He states he began to notice swelling, erythema, warmth of the left elbow yesterday. He states the pain had increased throughout the day. He also started to notice the erythema was extending from his elbow into his lower forearm. Therefore, he decided to present to the emergency department for further evaluation. The patient was placed on IV clindamycin in the emergency department, the patient was admitted to internal medicine with a consult placed to orthopedic surgery. The time of exam, the patient localizes pain to his left elbow with radiation into his mid forearm. He denies pain in his hand, wrist, shoulder. He states he otherwise feels well. He denies chest pain, shortness breath, nausea, vomiting, fevers, chills, feelings of generalize d malaise. Vital signs stable. 08/23/19: Patient examined bedside this morning. He is experiencing discomfort in the left elbow, although it feels slightly better compared to yesterday. He states he is able to achieve full range of motion of the elbow without pain. He also feels well. He denies fever, chills, nausea, vomiting. He denies any new complaints today. Objective - Vital Signs Vital signs: Vital Signs Temp 97.6 F 08/23/19 06:53 Pulse 86 08/23/19 06:53 Resp 16 08/23/19 06:53 BP 101/66 08/23/19 06:53 Pulse Ox 93 L 08/23/19 06:53 Intake & Output 08/22/19 08/23/19 08/23/19 18:59 06:59 18:59 Intake Total 1900 180 Balance 1900 180 Intake: Intake, IV Titration 650 Amount Clindamycin 600 mg In 50 Dextrose 5% in Water 50 ml @ 50 mls/hr IVPB ONCE STA Rx#:[id number] Piperacillin-Tazobactam 3 100 .375 gm In Sodium Chloride 0.9% 100 ml @ 25 mls/hr IVPB Q8HR [facility] Rx# :[id number] Vancomycin 1,750 mg In 500 Sodium Chloride 0.9% 500 ml 500 ml @ 167 mls/hr IVPB Q8H [facility] Rx#: [id number] Oral 1250 180 Other: Voiding Method Toilet Toilet # Voids 3 - Exam On examination, the patient is sitting up in bed in no apparent distress. He is alert and oriented 3. On inspection of the left elbow, there is diffuse swelling over the tip of the olecranon, improved from yesterday. There is also swelling and erythema extending into the mid forearm, improved from yesterday. There is fluctuance over the tip of the olecranon. There is mild tenderness to palpation of the proximal forearm, no fluctuance. There is no tenderness to palpation of the shoulder, humerus, wrist, hand. Patient is able to perform full active ROM of the elbow without pain, no pain with PROM. There is no pain with passive range of motion of the wrist or fingers. Motor and sensory function are intact of the left upper extremity. Radial pulse palpable, the fingers and thumb are warm and well-perfused with brisk capillary refill. - Labs CBC & Chem 7: 08/22/19 02:13 08/22/19 02:13 Labs: Microbiology - Last 24 Hours (Table) 08/22/19 09:15 Gram Stain - Preliminary Aspirate Body Fluid Culture - Preliminary 08/22/19 02:15 Blood Culture - Preliminary Blood No Growth after 24 hours Assessment and Plan Assessment: Septic olecranon bursitis, left. Plan: - Clinical findings were discussed with the patient. Recommended we continue with conservative treatment at this time. Recommended a compressive Fernando wrap to the left elbow and warm compresses. - We will continue to follow the culture results of the left olecranon bursa aspiration performed yesterday 08/22/19. - Continue IV antibiotics and pain medication per admitting team. - We will continue to follow the patient while he remains inpatient and make recommendations as needed. Patient discussed with Dr. Cotter.
[2019-08-23] MEDS: PARoxetine 20 MG TAB PO SCH (08:40)
[2019-08-23] MEDS: HEPARIN SODIUM,PORCINE 5,000 UNIT/ML 1 ML VIAL SQ SCH ×2 (08:40→20:08)
[2019-08-23] MEDS: GABAPENTIN 400 MG CAP PO SCH ×3 (08:40→20:09)
[2019-08-23 10:06] LABS: African American GFR (CKD) >90 (>60 ml/min/1.73 sqM); Non-African American GFR(CKD) >90 (>60 ml/min/1.73 sqM)
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
[2019-08-23] MEDS: PRAZOSIN 1 MG CAP PO SCH (20:09)
[2019-08-23] MEDS: traZODone HCL 100 MG TAB PO SCH (20:09)
[2019-08-24] MEDS: PIPERACILLIN-TAZOBACTAM 3.375 GM in SODIUM CHLORIDE 0.9% 100 ML IVPB SCH ×2 (00:30→09:07)
[2019-08-24 03:00] LABS: African American GFR (CKD) >90 (>60 ml/min/1.73 sqM); Non-African American GFR(CKD) >90 (>60 ml/min/1.73 sqM)
[2019-08-24] MEDS ORDERED: VANCOMYCIN TROUGH DUE 1 EACH MISC MISCELLANE ONE (03:00)
[2019-08-24] MEDS: VANCOMYCIN 1,750 MG in SODIUM CHLORIDE 0.9% 500 ML 500 ML IVPB SCH (03:11)
[2019-08-24] MEDS: SODIUM CHLORIDE 0.9% 1,000 ML IV SCH (04:57)
[2019-08-24] MEDS: HYDROcodone/APAP 10-325MG 1 EACH TAB PO PRN (07:04)
[2019-08-24 08:13] VITALS: BP 116/72; PULSE 75; RESP 16; TEMP 97.7
[2019-08-24] MEDS: GABAPENTIN 400 MG CAP PO SCH (09:07)
[2019-08-24] MEDS: PARoxetine 20 MG TAB PO SCH (09:07)
[2019-08-24] MEDS: HEPARIN SODIUM,PORCINE 5,000 UNIT/ML 1 ML VIAL SQ SCH (09:07)
[2019-08-24] MEDS ORDERED: VANCOMYCIN 1,500 MG in SODIUM CHLORIDE 0.9% 250 ML IVPB SCH (11:00)
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
== END 2019-08-24 12:39 | disposition home or self-care (01) ==
LOC: EC 22:33 → 4MS4W 08-22 04:55 → 4SSUR 08-22 13:45
PROVIDERS: ADMIT Internal Medicine Geriatric Medicine; ATTEND Internal Medicine Geriatric Medicine
DX: M70.22 Olecranon bursitis, left elbow (principal); L03.114 Cellulitis of left upper limb; K21.9 Gastro-esophageal reflux disease without esophagitis; F43.10 Post-traumatic stress disorder, unspecified; F41.9 Anxiety disorder, unspecified; G89.29 Other chronic pain; M54.9 Dorsalgia, unspecified; Z86.14 Personal history of Methicillin resistant Staphylococcus aureus infection; Z79.82 Long term (current) use of aspirin; Z79.891 Long term (current) use of opiate analgesic; Z79.899 Other long term (current) drug therapy; Z88.5 Allergy status to narcotic agent; Z88.6 Allergy status to analgesic agent; Z91.030 Bee allergy status; Z90.49 Acquired absence of other specified parts of digestive tract; Z98.52 Vasectomy status; Z87.891 Personal history of nicotine dependence; Z82.0 Family history of epilepsy and other diseases of the nervous system
CPT/HCPCS: 20605; 96366 ×4; 96367 ×2; 96372 ×3; 96361; 96365; 99284; 36415; 80053; 89050; 82565 ×2; 83605; 85025; 80202; 87040; 87070; 87205; 87077; 87186; 73080; G0378 ×3; J2543 ×3; J3370 ×3; J1644 ×3; 96368

== ENCOUNTER 2019-11-10 14:41 | Emergency (ER) | payer MEDICARE, OTHER ==
[2019-11-10] MEDS ORDERED: LIDOCAINE 1% INJ 10MG/ML (20 ML MDV) SQ ONE (15:48)
--- NOTE | 2019-11-10 16:37 | ED ---
Wound/Laceration HPI - General Chief Complaint: Wound/Laceration Stated Complaint: Finger laceration Time Seen by Provider: 11/10/19 15:04 Source: patient Mode of arrival: ambulatory Limitations: no limitations - History of Present Illness Initial Comments: Patient is a 38-year-old male presenting to emergency Department with a laceration to his right index finger. Patient states he was with a friend who accidentally dropped a sharp knife and landed on the dorsal aspects of his finger. Patient is able to control the bleeding with a bandage. There are no other complaints at this time. Patient's last tetanus vaccine was last year. - Related Data Home Medications Medication Instructions Recorded Confirmed Aspirin EC [Ecotrin] 325 mg PO DIRECTED PRN 08/22/19 08/22/19 EPINEPHrine (Auto Inject) [Epipen] 0.3 mg IM ONCE PRN 08/22/19 08/22/19 Gabapentin [Neurontin] 400 mg PO TID 08/22/19 08/22/19 HYDROcodone/APAP 10-325MG [[place] 1 tab PO Q4HR PRN 08/22/19 08/22/19 10-325] Methocarbamol [Robaxin] 750 mg PO QID PRN 08/22/19 08/22/19 PARoxetine HCL [Paxil] 60 mg PO DAILY 08/22/19 08/22/19 Prazosin HCl 6 mg PO HS 08/22/19 08/22/19 traZODone HCL [Desyrel] 100 mg PO HS 08/22/19 08/22/19 Previous Rx's Medication Instructions Recorded Doxycycline Hyclate 100 mg PO BID #20 tab 08/24/19 Allergies Allergy/AdvReac Type Severity Reaction Status Date / Time ketorolac tromethamine Allergy Rash/Hives Verified 08/22/19 09:53 [From Toradol] naproxen Allergy Nausea & Verified 08/22/19 09:53 Vomiting & Diarrhea venom-honey bee Allergy Unknown Verified 08/22/19 09:53 [bee venom (honey bee)] Review of Systems ROS Statement: Those systems with pertinent positive or pertinent negative responses have been documented in the HPI. ROS Other: All systems not noted in ROS Statement are negative. Past Medical History Past Medical History: No Reported History Additional Past Medical History / Comment(s): chronic knee pain History of Any Multi-Drug Resistant Organisms: MRSA Date of last positivie culture/infection: 2008 MDRO Source:: thumb Past Surgical History: Appendectomy, Orthopedic Surgery Additional Past Surgical History / Comment(s): carpel tunnnel release, vascectomy, skin graft knee surg x4, hip surgery Past Psychological History: Anxiety, PTSD Smoking Status: Former smoker Past Alcohol Use History: Occasional Past Drug Use History: None Reported - Past Family History Father Family Medical History: No Reported History Additional Family Medical History / Comment(s): Father is alive at age 61 was no major medical problems. Mother Family Medical History: No Reported History Additional Family Medical History / Comment(s): Mother is alive at age 56 with history of spinal surgeries and neurological disorders. Patient's troponin is and one sister with no major medical problems. Patient has 1 son and 1 daughter with no major medical problems. General Exam - General Exam Comments Initial Comments: GENERAL: Well-appearing, well-nourished and in no acute distress. HEAD: Atraumatic, normocephalic. EYES: Pupils equal round and reactive to light, extraocular movements intact, sclera anicteric, conjunctiva are normal. ENT: Moist mucous membranes. NECK: Normal range of motion, supple without lymphadenopathy or JVD. LUNGS: Breath sounds clear to auscultation bilaterally and equal. No wheezes rales or rhonchi. HEART: Regular rate and rhythm without murmurs, rubs or gallops. EXTREMITIES: Patient has full range of motion of right hand and fingers. Patient has full extension and flexion of right index finger. Neurovascular intact.. NEUROLOGICAL: Normal speech, normal gait. PSYCH: Normal mood, normal affect. SKIN: Warm, Dry, normal turgor, no rashes. He has a 1.5 cm laceration to the right index finger, dorsal aspect, just distal to PIP joint. Limitations: no limitations Procedures - Laceration Laceration #1 Consent Obtained: verbal consent Indication: laceration Site: hand (Right index finger, dorsal aspect) Size (cm): 0 (1.5cm) Description: linear Depth: simple, single layer Anesthetic Used: lidocaine 1% Anesthesia Technique: local infiltration Amount (mls): 2 Pre-repair: irrigated extensively Type of Sutures: nylon Size of Sutures: 4-0 Number of Sutures: 4 Technique: simple, interrupted Patient Tolerated Procedure: well Medical Decision Making - Medical Decision Making Patient is a 38-year-old male presenting with a 1.5cm laceration to the right index finger. Tetanus vaccine is up-to-date. Patient's wound was cleaned, closed with 4, 4-0 sutures. Patient tolerated procedure well. Wound was covered with antibiotic ointment and bandage. Patient will have sutures removed in 7-10 days. He is in agreement with this plan of care. Return parameters were discussed with the patient he verbalizes understanding. Disposition Clinical Impression: Laceration of right index finger Disposition: HOME SELF-CARE Condition: Stable Instructions (If sedation given, give patient instructions): Care For Your Stitches (ED), Laceration (ED) Additional Instructions: Please return to the Emergency Department if symptoms worsen or any other concerns. Apply topical antibiotic 1-2 times a day. Stitches need to be removed in 7-10 days. Keep wound covered while working. Is patient prescribed a controlled substance at d/c from ED?: No Referrals: Nik Paula MD [Primary Care Provider] - 1-2 days
== END 2019-11-10 16:44 | disposition home or self-care (01) ==
LOC: EC 14:41
DX: S61.210A Laceration without foreign body of right index finger without damage to nail, initial encounter (principal); F41.9 Anxiety disorder, unspecified; F43.10 Post-traumatic stress disorder, unspecified; Z87.891 Personal history of nicotine dependence; Z86.14 Personal history of Methicillin resistant Staphylococcus aureus infection; Z79.82 Long term (current) use of aspirin; Z79.899 Other long term (current) drug therapy; Z88.6 Allergy status to analgesic agent; Z91.030 Bee allergy status; W26.0XXA Contact with knife, initial encounter; Y93.89 Activity, other specified
CPT/HCPCS: 99282; 12001; J2001

== ENCOUNTER 2020-10-09 19:19 | Emergency (ER) | payer MEDICARE, OTHER ==
[2020-10-09 19:23] VITALS: RESP 20; TEMP 98.2
--- NOTE | 2020-10-09 19:51 | ED ---
General Adult HPI - General Chief complaint: Chest Pain Stated complaint: Chest Pain Time Seen by Provider: 10/09/20 19:24 Source: patient Mode of arrival: wheelchair Limitations: no limitations - History of Present Illness Initial comments: Dictation was produced using [employer] dictation software. please excuse any grammatical, word or spelling errors. This patient was cared for during a federal and state declared state of emergency secondary to Covid 19 Chief Complaint: 39-year-old male presents with multiple hours of sharp chest p ain that radiates to the right neck and left upper extremity History of Present Illness: 39-year-old male he is a to the . Patient states he has history of chronic pain. Patient states that over the last couple hours he had acute onset of sharp chest pain that radiated to the right neck and left upper extremity. Patient also reports concomitant left upper extremity sensory deficits. 4 cm severe problem him to come to the emergency department. Patient states that he's had pain similar to this in the past in 2014 were he was evaluated by cardiology and no apparent reason was found. 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 The ROS documented in this emergency department record has been reviewed and confirmed by me. Those systems with pertinent positive or negative responses have been documented in the HPI. All other systems are other negative and/or noncontributory. PHYSICAL EXAM: General Impression: Alert and oriented x3, acute distress secondary to pain HEENT: Normocephalic atraumatic, extra-ocular movements intact, pupils equal and reactive to light bilaterally, mucous membranes moist. Cardiovascular: Heart regular rate and rhythm Chest: Able to complete full sentences, no retractions, no tachypnea Abdomen: abdomen soft, non-tender, non-distended, no organomegaly Musculoskeletal: Pulses present and equal in all extremities, no peripheral edema Motor: no focal deficits noted Neurological: CN II-XII grossly intact, no focal motor or sensory deficits noted Skin: Intact with no visualized rashes Psych: Normal affect and mood ED course: 39-year-old male presents with sharp chest pain with radiation to the right neck and left upper extremity. Signs upon arrival shows heart rate of 11, so vital signs within acceptable limits. Laboratory evaluation obtained. CBC, cardiac panel, metabolic panel is unremarkable. Troponin is negative. Chest x-ray shows no acute processes. CT of the thoracic aorta shows no acute processes. No dissection. Patient's symptoms likely secondary musculoskeletal strain. Patient be discharged. Patient reevaluated at bedside 10:18 PM. He is told of his results and the plan. Patient is agreeable. EKG interpretation: Ventricular rate eyes 7, normal sinus rhythm,. 146, QRS 100, QTC 441, right bundle branch block. No UT prolongation, no QTC prolongat ion, no ST or T-wave changes noted. EKG compared to 01/06/2019 showing no changes. Overall, this EKG is unremarkable - Related Data Home Medications Medication Instructions Recorded Confirmed EPINEPHrine (Auto Inject) [Epipen] 0.3 mg IM ONCE PRN 08/22/19 10/09/20 Gabapentin [Neurontin] 400 mg PO TID 08/22/19 10/09/20 HYDROcodone/APAP 10-325MG [[place] 1 tab PO Q4HR PRN 08/22/19 10/09/20 10-325] PARoxetine HCL [Paxil] 60 mg PO DAILY 08/22/19 10/09/20 Prazosin HCl 6 mg PO HS 08/22/19 10/09/20 Omeprazole 40 mg PO DAILY 10/09/20 10/09/20 traZODone HCL 150 mg PO HS 10/09/20 10/09/20 Allergies Allergy/AdvReac Type Severity Reaction Status Date / Time ketorolac tromethamine Allergy Rash/Hives Verified 10/09/20 20:33 [From Toradol] naproxen Allergy Nausea & Verified 10/09/20 20:33 Vomiting & Diarrhea venom-honey bee Allergy Unknown Verified 10/09/20 20:33 [bee venom (honey bee)] Review of Systems ROS Statement: Those systems with pertinent positive or pertinent negative responses have been documented in the HPI. ROS Other: All systems not noted in ROS Statement are negative. Past Medical History Past Medical History: No Reported History Additional Past Medical History / Comment(s): chronic knee pain History of Any Multi-Drug Resistant Organisms: MRSA Date of last positivie culture/infection: 2008 MDRO Source:: thumb Past Surgical History: Appendectomy, Back Surgery, Orthopedic Surgery Additional Past Surgical History / Comment(s): carpel tunnnel release, vascectomy, skin graft knee surg x4, hip surgery Past Psychological History: Anxiety, PTSD Smoking Status: Never smoker Past Alcohol Use History: Occasional Past Drug Use History: None Reported - Past Family History Father Family Medical History: No Reported History Additional Family Medical History / Comment(s): Father is alive at age 61 was no major medical problems. Mother Family Medical History: No Reported History Additional Family Medical History / Comment(s): Mother is alive at age 56 with history of spinal surgeries and neurological disorders. Patient's troponin is and one sister with no major medical problems. Patient has 1 son and 1 daughter with no major medical problems. General Exam Limitations: no limitations Course Vital Signs 10/09/20 10/09/20 19:20 21:25 Temperature 98.2 F Pulse Rate 101 H 93 Respiratory 20 20 Rate Blood Pressure 153/84 120/82 O2 Sat by Pulse 98 98 Oximetry Medical Decision Making - Lab Data Result diagrams: 10/09/20 19:51 10/09/20 19:51 Lab Results 10/09/20 10/09/20 10/09/20 Range/Units 19:51 19:51 19:51 WBC 7.8 (3.8-10.6) k/uL RBC 5.02 (4.30-5.90) m/uL Hgb 15.6 (13.0-17.5) gm/dL Hct 44.7 (39.0-53.0) % MCV 89.0 (80.0-100.0) fL MCH 31.0 (25.0-35.0) pg MCHC 34.9 (31.0-37.0) g/dL RDW 13.2 (11.5-15.5) % Plt Count 246 (150-450) k/uL MPV 9.1 Neutrophils % 49 % Lymphocytes % 34 % Monocytes % 7 % Eosinophils % 5 % Basophils % 3 % Neutrophils # 3.9 (1.3-7.7) k/uL Lymphocytes # 2.7 (1.0-4.8) k/uL Monocytes # 0.6 (0-1.0) k/uL Eosinophils # 0.4 (0-0.7) k/uL Basophils # 0.2 (0-0.2) k/uL PT 9.7 (9.0-12.0) sec INR 0.9 (<1.2) APTT 25.9 (22.0-30.0) sec Sodium 140 (137-145) mmol/L Potassium 4.1 (3.5-5.1) mmol/L Chloride 104 (98-107) mmol/L Carbon Dioxide 27 (22-30) mmol/L Anion Gap 9 mmol/L BUN 12 (9-20) mg/dL Creatinine 1.01 (0.66-1.25) mg/dL Est GFR (CKD-EPI)AfAm >90 (>60 ml/min/1.73 sqM) Est GFR (CKD-EPI)NonAf >90 (>60 ml/min/1.73 sqM) Glucose 89 (74-99) mg/dL Calcium 9.8 (8.4-10.2) mg/dL Troponin I (0.000-0.034) ng/mL 10/09/20 Range/Units 19:51 WBC (3.8-10.6) k/uL RBC (4.30-5.90) m/uL Hgb (13.0-17.5) gm/dL Hct (39.0-53.0) % MCV (80.0-100.0) fL MCH (25.0-35.0) pg MCHC (31.0-37.0) g/dL RDW (11.5-15.5) % Plt Count (150-450) k/uL MPV Neutrophils % % Lymphocytes % % Monocytes % % Eosinophils % % Basophils % % Neutrophils # (1.3-7.7) k/uL Lymphocytes # (1.0-4.8) k/uL Monocytes # (0-1.0) k/uL Eosinophils # (0-0.7) k/uL Basophils # (0-0.2) k/uL PT (9.0-12.0) sec INR (<1.2) APTT (22.0-30.0) sec Sodium (137-145) mmol/L Potassium (3.5-5.1) mmol/L Chloride (98-107) mmol/L Carbon Dioxide (22-30) mmol/L Anion Gap mmol/L BUN (9-20) mg/dL Creatinine (0.66-1.25) mg/dL Est GFR (CKD-EPI)AfAm (>60 ml/min/1.73 sqM) Est GFR (CKD-EPI)NonAf (>60 ml/min/1.73 sqM) Glucose (74-99) mg/dL Calcium (8.4-10.2) mg/dL Troponin I <0.012 (0.000-0.034) ng/mL Disposition Clinical Impression: Chest pain Disposition: HOME SELF-CARE Condition: Fair Instructions (If sedation given, give patient instructions): Chest Pain (ED) Is patient prescribed a controlled substance at d/c from ED?: No Referrals: Nik Paula MD [Primary Care Provider] - 1-2 days Time of Disposition: 22:18
[2020-10-09 19:57] LABS: Basophils # (A) 0.2 k/uL (0-0.2); Basophils % (A) 3 %; Eosinophils # (A) 0.4 k/uL (0-0.7); Eosinophils % (A) 5 %; HCT 44.7 % (39.0-53.0); HGB 15.6 gm/dL (13.0-17.5); Lymphocytes # (A) 2.7 k/uL (1.0-4.8); Lymphocytes % (A) 34 %; MCHC 34.9 g/dL (31.0-37.0); Mean Platelet Volume 9.1; Monocytes # (A) 0.6 k/uL (0-1.0); Monocytes % (A) 7 %; Neutrophils # (A) 3.9 k/uL (1.3-7.7); Neutrophils % (A) 49 %; Platelet Count 246 k/uL (150-450); RBC 5.02 m/uL (4.30-5.90); RDW 13.2 % (11.5-15.5); WBC 7.8 k/uL (3.8-10.6)
[2020-10-09 20:08] LABS: INR 0.9 (<1.2); Partial Thromboplastin Time 25.9 sec (22.0-30.0); Prothrombin Time 9.7 sec (9.0-12.0)
[2020-10-09 20:13] LABS: African American GFR (CKD) >90 (>60 ml/min/1.73 sqM); Anion Gap 9 mmol/L; Blood Urea Nitrogen 12 mg/dL (9-20); Calcium 9.8 mg/dL (8.4-10.2); Carbon Dioxide 27 mmol/L (22-30); Chloride 104 mmol/L (98-107); Glucose 89 mg/dL (74-99); Non-African American GFR(CKD) >90 (>60 ml/min/1.73 sqM); Potassium 4.1 mmol/L (3.5-5.1); Sodium 140 mmol/L (137-145)
--- NOTE | 2020-10-09 20:32 | XR ---
EXAMINATION TYPE: XR chest 1V portable DATE OF EXAM: 10/09/2020 COMPARISON: 02/23/2013 HISTORY: Chest pain TECHNIQUE: FINDINGS: Heart and mediastinum are normal. Lungs are clear. Costophrenic angles are clear. There are no hilar masses. There are chest leads IMPRESSION: No active cardiopulmonary disease. Normal heart. No change.
[2020-10-09 21:26] VITALS: BP 120/82; PULSE 93
--- NOTE | 2020-10-09 21:53 | CT ---
EXAMINATION TYPE: CT angio thor/abd pel aorta DATE OF EXAM: 10/09/2020 COMPARISON: None HISTORY: Dissection Abdominal pain. Chest pain CT DLP: 1679 mGycm Automated exposure control for dose reduction was used. CONTRAST: Performed without and with IV Contrast, patient injected with 100 ml mL of Isovue 370. There are 3-D post processed images. The lungs are clear of infiltrate. There is no pleural effusion or pneumothorax. Thoracic aorta is intact. There is no mediastinal adenopathy. There is no thoracic aortic dissection. There is 3.8 cm diameter ascending aorta near the aortic valve. There is normal contrast opacification of the pulmonary arteries. There are no filling defects. Heart size is normal. There is no pericardial effusion. Liver spleen stomach pancreas gallbladder appear normal. Bile ducts are not dilated. There is no adre nal mass. Kidneys show satisfactory contrast opacification. There is no hydronephrosis. Ureters are n ot dilated. There is no retroperitoneal adenopathy. Bladder distends smoothly. There is no inguinal h ernia. There is no free fluid in the pelvis. There is no mesenteric edema. There is no ascites or free air. There is no bowel obstruction. Abdominal aorta has normal size and contour. There is patency of the celiac artery and superior mesen teric artery. There is wide patency of the renal and iliac and femoral arteries. There is no evidence of hemodynamic stenosis. There is no evidence of arterial dissection. There is L4-5 first-degree spo ndylolisthesis. There is posterior fusion surgery at L4-5. There is no thoracic or lumbar compression fracture. IMPRESSION: Negative CT angiogram of the thoracic and abdominal aorta. The ascending aorta root is upper limit of normal size. There is a first-degree L4-5 spondylolisthesis.
== END 2020-10-09 22:30 | disposition home or self-care (01) ==
LOC: EC 19:19
DX: R07.9 Chest pain, unspecified (principal); I45.10 Unspecified right bundle-branch block; F41.9 Anxiety disorder, unspecified; F43.10 Post-traumatic stress disorder, unspecified; Z79.899 Other long term (current) drug therapy; Z88.5 Allergy status to narcotic agent; Z88.6 Allergy status to analgesic agent; Z91.030 Bee allergy status
CPT/HCPCS: 36415; 93005; 80048; 84484; 85025; 85610; 85730; 71045; 71275; 74174; 99285; Q9967

== ENCOUNTER 2021-01-17 22:55 | Emergency (ER) | payer MEDICARE ==
[2021-01-17 22:59] VITALS: RESP 18; TEMP 97.5
[2021-01-17] MEDS ORDERED: SODIUM CHLORIDE 0.9% 1,000 ML IV STA (23:17)
[2021-01-17] MEDS ORDERED: MORPHINE SULFATE 4 MG/ML SYRINGE IVP STA (23:17)
--- NOTE | 2021-01-17 23:18 | ED ---
Back Pain HPI - General Chief Complaint: Back Pain/Injury Stated Complaint: Back Pain Time Seen by Provider: 01/17/21 23:16 Source: patient Limitations: no limitations - Related Data Home Medications Medication Instructions Recorded Confirmed EPINEPHrine (Auto Inject) [Epipen] 0.3 mg IM ONCE PRN 08/22/19 10/09/20 Gabapentin [Neurontin] 400 mg PO TID 08/22/19 10/09/20 HYDROcodone/APAP 10-325MG [[place] 1 tab PO Q4HR PRN 08/22/19 10/09/20 10-325] PARoxetine HCL [Paxil] 60 mg PO DAILY 08/22/19 10/09/20 Prazosin HCl 6 mg PO HS 08/22/19 10/09/20 Omeprazole 40 mg PO DAILY 10/09/20 10/09/20 traZODone HCL 150 mg PO HS 10/09/20 10/09/20 Allergies Allergy/AdvReac Type Severity Reaction Status Date / Time ketorolac tromethamine Allergy Rash/Hives Verified 01/17/21 22:59 [From Toradol] naproxen Allergy Nausea & Verified 01/17/21 22:59 Vomiting & Diarrhea venom-honey bee Allergy Unknown Verified 01/17/21 22:59 [bee venom (honey bee)] Review of Systems ROS Statement: Those systems with pertinent positive or pertinent negative responses have been documented in the HPI. ROS Other: All systems not noted in ROS Statement are negative. Past Medical History Past Medical History: No Reported History Additional Past Medical History / Comment(s): chronic knee pain History of Any Multi-Drug Resistant Organisms: MRSA Date of last positivie culture/infection: 2008 MDRO Source:: thumb Past Surgical History: Appendectomy, Back Surgery, Orthopedic Surgery Additional Past Surgical History / Comment(s): carpel tunnnel release, vascectomy, skin graft knee surg x4, hip surgery Past Psychological History: Anxiety, PTSD Smoking Status: Never smoker Past Alcohol Use History: Occasional Past Drug Use History: None Reported - Past Family History Father Family Medical History: No Reported History Additional Family Medical History / Comment(s): Father is alive at age 61 was no major medical problems. Mother Family Medical History: No Reported History Additional Family Medical History / Comment(s): Mother is alive at age 56 with history of spinal surgeries and neurological disorders. Patient's troponin is and one sister with no major medical problems. Patient has 1 son and 1 daughter with no major medical problems. General Exam Limitations: no limitations Course Vital Signs 01/17/21 22:57 Temperature 97.5 F L Pulse Rate 122 H Respiratory 18 Rate Blood Pressure 124/76 O2 Sat by Pulse 99 Oximetry Medical Decision Making - Lab Data Result diagrams: 01/18/21 00:15 01/18/21 00:15 Lab Results 01/18/21 01/18/21 01/18/21 Range/Units 00:15 00:15 00:28 WBC 10.6 (3.8-10.6) k/uL RBC 5.00 (4.30-5.90) m/uL Hgb 15.3 (13.0-17.5) gm/dL Hct 44.4 (39.0-53.0) % MCV 88.6 (80.0-100.0) fL MCH 30.7 (25.0-35.0) pg MCHC 34.6 (31.0-37.0) g/dL RDW 12.9 (11.5-15.5) % Plt Count 283 (150-450) k/uL MPV 7.4 Neutrophils % 55 % Lymphocytes % 33 % Monocytes % 6 % Eosinophils % 3 % Basophils % 1 % Neutrophils # 5.8 (1.3-7.7) k/uL Lymphocytes # 3.5 (1.0-4.8) k/uL Monocytes # 0.6 (0-1.0) k/uL Eosinophils # 0.4 (0-0.7) k/uL Basophils # 0.1 (0-0.2) k/uL Potassium 4.1 (3.5-5.1) mmol/L Urine Color Yellow Urine Appearance Clear (Clear) Urine pH 5.5 (5.0-8.0) Ur Specific [place] 1.033 (1.001-1.035) Urine Protein Trace H (Negative) Urine Glucose (UA) Negative (Negative) Urine Ketones Negative (Negative) Urine Blood Negative (Negative) Urine Nitrite Negative (Negative) Urine Bilirubin Negative (Negative) Urine Urobilinogen 2.0 (<2.0) mg/dL Ur Leukocyte Esterase Negative (Negative) Disposition Clinical Impression: Sciatica, Mid back pain, Lumbar radiculopathy Disposition: HOME SELF-CARE Condition: Good Instructions (If sedation given, give patient instructions): Acute Low Back Pain (ED) Is patient prescribed a controlled substance at d/c from ED?: No Referrals: Nik Paula MD [Primary Care Provider] - 1-2 days
--- NOTE | 2021-01-18 00:02 | CT ---
EXAMINATION TYPE: CT lumbar spine wo con DATE OF EXAM: 01/17/2021 COMPARISON: None HISTORY: BENT OVER TO PICK SOMETHING UP AND HEARD A POP, HX OF BACK SURGERY ONE YEAR AGO, PRIOR XRAY OF LUMBAR SPINE CT DLP: 1602.6 mGycm Automated exposure control for dose reduction was used. Images obtained from the level of T11-S3 vertebra without contrast. There is posterior fusion surgery at L4-5. There is disc prosthesis at L4-5. There is 8mm anterior downing bluxation of L4 in relation L5. There is no compression fracture. I see no focal bone destruction. Th ere is no lumbar paraspinal mass. There is laminectomy defect in the lower lumbar spine at L4 4. The sacroiliac joints are intact. IMPRESSION: There is L4-5 subluxation deformity that has progressed slightly compared to old CT scan of 0. No acute fracture seen.
[2021-01-18 00:37] LABS: Basophils # (A) 0.1 k/uL (0-0.2); Basophils % (A) 1 %; Eosinophils # (A) 0.4 k/uL (0-0.7); Eosinophils % (A) 3 %; HCT 44.4 % (39.0-53.0); HGB 15.3 gm/dL (13.0-17.5); Lymphocytes # (A) 3.5 k/uL (1.0-4.8); Lymphocytes % (A) 33 %; MCH 30.7 pg (25.0-35.0); MCHC 34.6 g/dL (31.0-37.0); MCV 88.6 fL (80.0-100.0); Mean Platelet Volume 7.4; Monocytes # (A) 0.6 k/uL (0-1.0); Monocytes % (A) 6 %; Neutrophils # (A) 5.8 k/uL (1.3-7.7); Neutrophils % (A) 55 %; Platelet Count 283 k/uL (150-450); RDW 12.9 % (11.5-15.5); WBC 10.6 k/uL (3.8-10.6)
[2021-01-18 01:10] LABS: Potassium 4.1 mmol/L (3.5-5.1)
[2021-01-18 01:12] LABS: Appearance,Urine Clear (Clear); Bilirubin,Urine Negative (Negative); Blood,Urine Negative (Negative); Color,Urine Yellow; Glucose,Urine (UA) Negative (Negative); Ketones,Urine Negative (Negative); Leukocyte Esterase,Urine Negative (Negative); Nitrite,Urine Negative (Negative); PH, Urine 5.5 (5.0-8.0); Protein,Urine Trace (Negative); Specific Gravity,Urine 1.033 (1.001-1.035)
[2021-01-18 01:13] LABS: ALT 36 U/L (4-49); AST 30 U/L (17-59); African American GFR (CKD) >90 (>60 ml/min/1.73 sqM); Albumin 4.6 g/dL (3.5-5.0); Alkaline Phosphatase 71 U/L (38-126); Anion Gap 11 mmol/L; Blood Urea Nitrogen 17 mg/dL (9-20); Calcium 9.6 mg/dL (8.4-10.2); Carbon Dioxide 22 mmol/L (22-30); Chloride 105 mmol/L (98-107); Glucose 116 mg/dL (74-99); Non-African American GFR(CKD) >90 (>60 ml/min/1.73 sqM); Sodium 138 mmol/L (137-145); Total Bilirubin 0.6 mg/dL (0.2-1.3); Total Protein 7.7 g/dL (6.3-8.2)
[2021-01-18 01:20] VITALS: PULSE 101
[2021-01-18] MEDS ORDERED: HYDROmorphone 1 MG/ML 1 ML SYRINGE IVP STA (01:22)
[2021-01-18 01:31] VITALS: BP 126/76
== END 2021-01-18 01:32 | disposition home or self-care (01) ==
LOC: EC 22:55
DX: M54.16 Radiculopathy, lumbar region (principal); M54.30 Sciatica, unspecified side; Z90.49 Acquired absence of other specified parts of digestive tract
CPT/HCPCS: 36415; 80053; 85025; 81003; 72131; 99284; 96365; 96375; 96361; J2270; J1170

== ENCOUNTER 2021-01-19 21:58 | Emergency (ER) | payer MEDICARE ==
[2021-01-19 22:03] VITALS: PULSE 97; RESP 20; TEMP 97.8
--- NOTE | 2021-01-19 22:32 | ED ---
Recheck HPI - General Chief Complaint: Back Pain/Injury Stated Complaint: lower back pain Time Seen by Provider: 01/19/21 22:24 Source: patient Mode of arrival: ambulatory Limitations: no limitations - Related Data Home Medications Medication Instructions Recorded Confirmed EPINEPHrine (Auto Inject) [Epipen] 0.3 mg IM ONCE PRN 08/22/19 01/19/21 Gabapentin [Neurontin] 400 mg PO TID 08/22/19 01/19/21 HYDROcodone/APAP 10-325MG [[place] 1 tab PO Q6H PRN 08/22/19 01/19/21 10-325] PARoxetine HCL [Paxil] 60 mg PO DAILY 08/22/19 01/19/21 Prazosin HCl 6 mg PO HS PRN 08/22/19 01/19/21 Omeprazole 40 mg PO DAILY PRN 10/09/20 01/19/21 traZODone HCL 150 mg PO HS 10/09/20 01/19/21 Cyclobenzaprine [Flexeril] 10 mg PO TID 01/19/21 01/19/21 Previous Rx's Medication Instructions Recorded predniSONE 50 mg PO DAILY #5 tab 01/19/21 Allergies Allergy/AdvReac Type Severity Reaction Status Date / Time ketorolac tromethamine Allergy Rash/Hives Verified 01/19/21 22:51 [From Toradol] naproxen Allergy Nausea & Verified 01/19/21 22:51 Vomiting & Diarrhea venom-honey bee Allergy Unknown Verified 01/19/21 22:51 [bee venom (honey bee)] Review of Systems ROS Statement: Those systems with pertinent positive or pertinent negative responses have been documented in the HPI. ROS Other: All systems not noted in ROS Statement are negative. Past Medical History Past Medical History: No Reported History Additional Past Medical History / Comment(s): chronic knee pain, back pain History of Any Multi-Drug Resistant Organisms: MRSA Date of last positivie culture/infection: 2008 MDRO Source:: thumb Past Surgical History: Appendectomy, Back Surgery, Orthopedic Surgery Additional Past Surgical History / Comment(s): l4-5 fusion, carpel tunnnel release, vascectomy, skin graft knee surg x4, hip surgery Past Psychological History: Anxiety, PTSD Smoking Status: Never smoker Past Alcohol Use History: Occasional Past Drug Use History: None Reported - Past Family History Father Family Medical History: No Reported History Additional Family Medical History / Comment(s): Father is alive at age 61 was no major medical problems. Mother Family Medical History: No Reported History Additional Family Medical History / Comment(s): Mother is alive at age 56 with history of spinal surgeries and neurological disorders. Patient's troponin is and one sister with no major medical problems. Patient has 1 son and 1 daughter with no major medical problems. General Exam Limitations: no limitations Course Vital Signs 01/19/21 22:00 Temperature 97.8 F Pulse Rate 97 Respiratory 20 Rate Blood Pressure 132/88 O2 Sat by Pulse 98 Oximetry Disposition Clinical Impression: Lumbar radiculopathy, Mid back pain, Sciatica Disposition: HOME SELF-CARE Condition: Good Instructions (If sedation given, give patient instructions): Acute Low Back Pain (ED) Prescriptions: predniSONE 50 mg PO DAILY #5 tab Is patient prescribed a controlled substance at d/c from ED?: No Referrals: Nik Paula MD [Primary Care Provider] - 1-2 days
[2021-01-19] MEDS ORDERED: HYDROmorphone 1 MG/ML 1 ML SYRINGE IM STA (23:04)
[2021-01-19] MEDS ORDERED: dexAMETHasone 4 MG TAB PO STA (23:04)
[2021-01-19] MEDS ORDERED: CYCLOBENZAPRINE 5 MG TAB PO ONE (23:15)
[2021-01-19 23:31] VITALS: BP 131/88
== END 2021-01-19 23:31 | disposition home or self-care (01) ==
LOC: EC 21:58
DX: M54.16 Radiculopathy, lumbar region (principal); M54.30 Sciatica, unspecified side; Z90.49 Acquired absence of other specified parts of digestive tract
CPT/HCPCS: 99283; 96372; J8540; J1170

== ENCOUNTER 2021-02-04 23:34 | Emergency (ER) | payer MEDICARE ==
[2021-02-04 23:51] VITALS: TEMP 98.2
[2021-02-05] MEDS ORDERED: ACETAMINOPHEN TAB 500 MG TAB PO STA (00:45)
[2021-02-05] MEDS ORDERED: dexAMETHasone 4 MG TAB PO STA (00:45)
[2021-02-05] MEDS ORDERED: HYDROmorphone 1 MG/ML 1 ML SYRINGE IM STA (00:45)
--- NOTE | 2021-02-05 00:45 | ED ---
Back Pain HPI - General Chief Complaint: Back Pain/Injury Stated Complaint: Lower Back Pain Time Seen by Provider: 02/05/21 00:44 Source: patient, RN notes reviewed, old records reviewed Limitations: no limitations - History of Present Illness Initial Comments: This is a 32-year-old male DF for evaluation of back pain acute on chronic back pain is a 32 lifting or doing physical activity or exertion. Symptoms are worse today than normal. Patient states he recent suspect surgeon who states his surgery isn't taking well may need every vision. Patient has no specific trauma no fevers no loss of bowel or bladder no neurological complaint MD Complaint: back pain -: days(s) Similar Symptoms Previously: Yes Place: home Radiation: none Severity: severe Severity scale (1-10): 10 Quality: sharp, dull Consistency: constant Improves With: none Worsens With: none Context: while lifting, turning/twisting Associated Symptoms: denies other symptoms Treatments Prior to Arrival: prescription analgesics - Related Data Home Medications Medication Instructions Recorded Confirmed EPINEPHrine (Auto Inject) [Epipen] 0.3 mg IM ONCE PRN 08/22/19 01/19/21 Gabapentin [Neurontin] 400 mg PO TID 08/22/19 01/19/21 HYDROcodone/APAP 10-325MG [[place] 1 tab PO Q6H PRN 08/22/19 01/19/21 10-325] PARoxetine HCL [Paxil] 60 mg PO DAILY 08/22/19 01/19/21 Prazosin HCl 6 mg PO HS PRN 08/22/19 01/19/21 Omeprazole 40 mg PO DAILY PRN 10/09/20 01/19/21 traZODone HCL 150 mg PO HS 10/09/20 01/19/21 Cyclobenzaprine [Flexeril] 10 mg PO TID 01/19/21 01/19/21 Previous Rx's Medication Instructions Recorded predniSONE 50 mg PO DAILY #5 tab 01/19/21 Allergies Allergy/AdvReac Type Severity Reaction Status Date / Time ketorolac tromethamine Allergy Rash/Hives Verified 02/04/21 23:51 [From Toradol] naproxen Allergy Nausea & Verified 02/04/21 23:51 Vomiting & Diarrhea venom-honey bee Allergy Unknown Verified 02/04/21 23:51 [bee venom (honey bee)] Review of Systems ROS Statement: Those systems with pertinent positive or pertinent negative responses have been documented in the HPI. ROS Other: All systems not noted in ROS Statement are negative. Past Medical History Past Medical History: No Reported History Additional Past Medical History / Comment(s): chronic knee pain, back pain History of Any Multi-Drug Resistant Organisms: MRSA Date of last positivie culture/infection: 2008 MDRO Source:: thumb Past Surgical History: Appendectomy, Back Surgery, Orthopedic Surgery Additional Past Surgical History / Comment(s): l4-5 fusion, carpel tunnnel release, vascectomy, skin graft knee surg x4, hip surgery. bowel surgery Past Psychological History: Anxiety, PTSD Smoking Status: Former smoker Past Alcohol Use History: Occasional Past Drug Use History: None Reported - Past Family History Father Family Medical History: No Reported History Additional Family Medical History / Comment(s): Father is alive at age 61 was no major medical problems. Mother Family Medical History: No Reported History Additional Family Medical History / Comment(s): Mother is alive at age 56 with history of spinal surgeries and neurological disorders. Patient's troponin is and one sister with no major medical problems. Patient has 1 son and 1 daughter with no major medical problems. General Exam Limitations: no limitations General appearance: alert, in no apparent distress Head exam: Present: atraumatic, normocephalic, normal inspection Eye exam: Present: normal appearance, PERRL, EOMI. Absent: scleral icterus, conjunctival injection, periorbital swelling ENT exam: Present: normal exam, mucous membranes moist Neck exam: Present: normal inspection. Absent: tenderness, meningismus, lymphadenopathy Respiratory exam: Present: normal lung sounds bilaterally. Absent: respiratory distress, wheezes, rales, rhonchi, stridor Cardiovascular Exam: Present: regular rate, normal rhythm, normal heart sounds. Absent: systolic murmur, diastolic murmur, rubs, gallop, clicks GI/Abdominal exam: Present: soft, normal bowel sounds. Absent: distended, tenderness, guarding, rebound, rigid Extremities exam: Present: normal inspection, full ROM, normal capillary refill. Absent: tenderness, pedal edema, joint swelling, calf tenderness Back exam: Present: normal inspection Neurological exam: Present: alert, oriented X3, CN II-XII intact Psychiatric exam: Present: normal affect, normal mood Skin exam: Present: warm, dry, intact, normal color. Absent: rash Course Vital Signs 02/04/21 02/05/21 23:49 01:19 Temperature 98.2 F Pulse Rate 87 91 Respiratory 20 18 Rate Blood Pressure 150/90 125/88 O2 Sat by Pulse 97 94 L Oximetry - Reevaluation(s) Reevaluation #1: Medical record is reviewed Patient symptoms are significantly improved Patient informed results and questions have been answered Patient feels good for discharge home Medical Decision Making - Medical Decision Making 40 male to the ER for acute on chronic back pain. Patient given pain control here in the ER feeling well and okay for discharge home Disposition Clinical Impression: Mid back pain, Lumbar radiculopathy Disposition: HOME SELF-CARE Condition: Good Instructions (If sedation given, give patient instructions): Acute Low Back Pain (ED) Is patient prescribed a controlled substance at d/c from ED?: No Referrals: Nik Paula MD [Primary Care Provider] - 1-2 days
[2021-02-05 01:20] VITALS: BP 125/88; PULSE 91; RESP 18
== END 2021-02-05 01:21 | disposition home or self-care (01) ==
LOC: EC 23:34
DX: M54.16 Radiculopathy, lumbar region (principal); F41.9 Anxiety disorder, unspecified; Z87.891 Personal history of nicotine dependence; Z79.52 Long term (current) use of systemic steroids
CPT/HCPCS: 99283; 96372; J8540; J1170

== ENCOUNTER 2021-02-16 23:04 | Emergency (ER) | payer MEDICARE ==
[2021-02-17] MEDS ORDERED: MORPHINE SULFATE 4 MG/ML SYRINGE IVP STA ×2 (00:16→01:19)
--- NOTE | 2021-02-17 00:52 | XR ---
EXAM: XR Cervical Spine, 4 or 5 Views CLINICAL HISTORY: History of fall. Neck pain. TECHNIQUE: Frontal, lateral and oblique views of the cervical spine. COMPARISON: No previous studies. FINDINGS: Vertebrae: Alignment of the cervical spine is within normal limits. Gentle levoscoliosis. There is a normal relationship of C1 and C2. No acute fracture. Disc spaces: Uncovertebral joints are unremarkable. Soft tissues: Unremarkable. IMPRESSION: 1. No acute injury to the cervical spine. 2. Normal alignment of the cervical spine.
--- NOTE | 2021-02-17 00:54 | XR ---
EXAM: XR Lumbosacral Spine, 4 or 5 Views CLINICAL HISTORY: ITS.REASON XR Reason: fall; pain TECHNIQUE: Frontal, lateral and oblique views of the lumbar spine. COMPARISON: 01/17/2021. FINDINGS: Vertebrae: Grade 1 anterolisthesis of L5 upon S1 vertebral body. Alignment of the lumbar spine is unremarkable. No compression fracture. Sacrum/coccyx: Transitional anatomy is noted with lumbarization of S1 vertebral body. No acute fracture. Disc spaces: Posterior fusion changes are noted at the L5-S1 level. L5-S1 intervertebral disc spacer is noted in place. Soft tissues: Unremarkable. IMPRESSION: 1. Transitional anatomy. 2. Surgical changes lower lumbar spine as outlined above. 3. Grade 1 anterolisthesis of L5 upon S1 vertebral body. 4. No acute injury to the lumbar spine is detected.
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
[2021-02-17 01:45] VITALS: BP 133/82; PULSE 78; RESP 17; TEMP 98.3
== END 2021-02-17 01:46 | disposition home or self-care (01) ==
LOC: EC 23:04
DX: F41.9 Anxiety disorder, unspecified (principal); Z87.891 Personal history of nicotine dependence
CPT/HCPCS: 72050; 72110; 99283; 96374; 96376; J2270

== ENCOUNTER → 2021-05-27 | Outpatient (CLI) | payer MEDICARE ==
--- NOTE | 2021-05-27 15:29 | CT ---
EXAMINATION TYPE: CT lumbar spine wo con DATE OF EXAM: 05/27/2021 COMPARISON: 01/17/2021 HISTORY: back pain and sx 03/30/2020 CT DLP: 932 mGycm CONTRAST: None TECHNIQUE: CT of the lumbar spine is performed on a spiral scan at 3 mm thick sections. Reconstructed images are performed in the coronal and sagittal planes. FINDINGS: T12-L1: No focal disc herniation or significant disc bulge is evident. No spinal canal stenosis or neural foraminal stenosis is present. L1-L2: No focal disc herniation or significant disc bulge is evident. No spinal canal stenosis or n eural foraminal stenosis is present L2-L3: No focal disc herniation or significant disc bulge is evident. No spinal canal stenosis or n eural foraminal stenosis is present L3-L4: No focal disc herniation or significant disc bulge is evident. No spinal canal stenosis or n eural foraminal stenosis is present L4-L5: Disc spacers present. There is a grade 1 spondylolisthesis of L4 anterior on L5. Laminectomies been performed. No spinal canal stenosis is evident. L5-S1: No focal disc herniation or significant disc bulge is evident. There is mild disc space narr owing. No spinal canal stenosis or neural foraminal stenosis is present IMPRESSION: Grade 1 spondylolisthesis of L4 on L5. Disc spacer and postsurgical changes are present at the L4
== END | disposition home or self-care (01) ==
LOC: RADCTMAIN 14:28
PROVIDERS: ATTEND Neurological Surgery
DX: M43.16 Spondylolisthesis, lumbar region (principal)
CPT/HCPCS: 72131

== ENCOUNTER 2021-06-06 20:37 | Emergency (ER) | payer MEDICARE ==
[2021-06-06 20:53] VITALS: BP 113/80; PULSE 100; RESP 19; TEMP 98.8
[2021-06-06] MEDS ORDERED: ACET/COD 300 MG/30 MG STARTER PACK 6 TAB BTL PO STA (21:07)
[2021-06-06] MEDS ORDERED: CEPHALEXIN 500MG STARTER PACK 4 CAP BTL PO STA (21:07)
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
== END 2021-06-06 21:23 | disposition home or self-care (01) ==
LOC: EC 20:37
DX: T23.212A Burn of second degree of left thumb (nail), initial encounter (principal); T31.0 Burns involving less than 10% of body surface; F41.9 Anxiety disorder, unspecified; Z88.6 Allergy status to analgesic agent; Z91.030 Bee allergy status; Z90.49 Acquired absence of other specified parts of digestive tract; Z87.891 Personal history of nicotine dependence; X19.XXXA Contact with other heat and hot substances, initial encounter
CPT/HCPCS: 99283

== ENCOUNTER → 2021-09-10 | Outpatient (CLI) | payer OTHER ==
--- NOTE | 2021-09-11 05:39 | MR ---
EXAMINATION TYPE: MR lumbar spine wo/w con DATE OF EXAM: 09/10/2021 COMPARISON: 09/22/2011 HISTORY: LBP, BLE radiculopathy, hx surgery. CONTRAST: Standard multiplanar, multisequence MRI departmental protocol images were obtained without contrast a nd with 12 mL intravenous Gadavist gadolinium contrast. There is anterior subluxation of L4 in relation L5 of 7 mm. There is screws and rods posteriorly fusi ng the lumbar spine at L4-5. There is some degenerative disc space narrowing at L4-5 and L5-S1. There is no significant spinal stenosis. There is no lumbar compression fracture. There is no paraspinal m ass. Sacroiliac joints are intact. I see no focal bone destruction. Contrast images show no pathologic enhancement. IMPRESSION: There is a first-degree L4-5 spondylolisthesis which appears new compared to old exam. There is poste rior fusion surgery. No significant spinal stenosis. There is progression of the degenerative disc sp deanna narrowing at L4-5 and L5-S1 compared to old exam.
== END | disposition home or self-care (01) ==
LOC: RADMRIMAIN 21:14
PROVIDERS: ATTEND Nurse Practitioner
DX: M43.16 Spondylolisthesis, lumbar region (principal); M51.17 Intervertebral disc disorders with radiculopathy, lumbosacral region
CPT/HCPCS: 72158; A9585

== ENCOUNTER 2021-09-30 18:00 | Emergency (ER) | payer MEDICARE, OTHER ==
[2021-09-30 19:51] VITALS: RESP 20; TEMP 98.2
[2021-09-30] MEDS ORDERED: HYDROmorphone 1 MG/ML 1 ML SYRINGE IM STA (22:09)
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
[2021-09-30] MEDS ORDERED: ACET/COD 300 MG/30 MG STARTER PACK 6 TAB BTL PO STA (23:16)
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
[2021-09-30 23:25] VITALS: BP 138/98; PULSE 104
== END 2021-09-30 23:30 | disposition home or self-care (01) ==
LOC: EC 18:00
DX: M54.16 Radiculopathy, lumbar region (principal); F41.9 Anxiety disorder, unspecified; Z87.891 Personal history of nicotine dependence; Z79.52 Long term (current) use of systemic steroids; Z79.899 Other long term (current) drug therapy; Y04.8XXA Assault by other bodily force, initial encounter
CPT/HCPCS: 72131; 99284; 96372; J1170

== ENCOUNTER 2021-10-01 22:04 | Emergency (ER) | payer MEDICARE ==
[2021-10-01 22:52] VITALS: BP 172/102; PULSE 102; RESP 20; TEMP 98.2
[2021-10-02] MEDS ORDERED: MORPHINE SULFATE 2 MG/ML SYRINGE IM STA (00:58)
[2021-10-02] MEDS ORDERED: PENICILLIN VK 500MG STARTER 4 TAB BTL PO STA (00:58)
[2021-10-02] MEDS ORDERED: ACET/COD 300 MG/30 MG STARTER PACK 6 TAB BTL PO STA (01:02)
--- NOTE | 2021-10-02 01:03 | ED ---
ENT HPI - General Chief complaint: Dental/Oral Stated complaint: Mouth Pain Time Seen by Provider: 10/02/21 00:36 Source: patient, RN notes reviewed Mode of arrival: ambulatory Limitations: no limitations - History of Present Illness Initial comments: Patient is a 40-year-old male presenting to emergency Department with complaints of right lower sided dental pain that started today. He states he is aware that he has very bad teeth, lots of cavities. Pain started worsening throughout the day, he noticed some mild swelling noted to the right side of his face and came in for evaluation. Denies any fevers or chills, no nausea or vomiting. He has had tried ibuprofen with little improvement of his pain. He states he recalled the left is message with the dentist. He has no further complaints. - Related Data Home Medications Medication Instructions Recorded Confirmed EPINEPHrine (Auto Inject) [Epipen] 0.3 mg IM ONCE PRN 08/22/19 01/19/21 Gabapentin [Neurontin] 400 mg PO TID 08/22/19 01/19/21 HYDROcodone/APAP 10-325MG [[place] 1 tab PO Q6H PRN 08/22/19 01/19/21 10-325] PARoxetine HCL [Paxil] 60 mg PO DAILY 08/22/19 01/19/21 Prazosin HCl 6 mg PO HS PRN 08/22/19 01/19/21 Omeprazole 40 mg PO DAILY PRN 10/09/20 01/19/21 traZODone HCL 150 mg PO HS 10/09/20 01/19/21 Cyclobenzaprine [Flexeril] 10 mg PO TID 01/19/21 01/19/21 Previous Rx's Medication Instructions Recorded predniSONE 50 mg PO DAILY #5 tab 01/19/21 Cephalexin [Keflex] 500 mg PO Q6H #40 cap 06/06/21 Cyclobenzaprine [Flexeril] 10 mg PO TID #15 tab 09/30/21 Penicillin V Potassium [Pen Vee K] 500 mg PO QID 7 Days #28 tablet 10/02/21 Allergies Allergy/AdvReac Type Severity Reaction Status Date / Time ketorolac tromethamine Allergy Rash/Hives Verified 10/01/21 22:50 [From Toradol] naproxen Allergy Nausea & Verified 10/01/21 22:50 Vomiting & Diarrhea venom-honey bee Allergy Unknown Verified 10/01/21 22:50 [bee venom (honey bee)] Review of Systems ROS Statement: Those systems with pertinent positive or pertinent negative responses have been documented in the HPI. ROS Other: All systems not noted in ROS Statement are negative. Past Medical History Past Medical History: No Reported History Additional Past Medical History / Comment(s): chronic knee pain, back pain History of Any Multi-Drug Resistant Organisms: MRSA Date of last positivie culture/infection: 2008 MDRO Source:: thumb Past Surgical History: Appendectomy, Back Surgery, Orthopedic Surgery Additional Past Surgical History / Comment(s): l4-5 fusion march 2020, carpel tunnnel release, vascectomy, skin graft knee surg x4, hip surgery. bowel surgery Past Psychological History: Anxiety, PTSD Smoking Status: Former smoker Past Alcohol Use History: Occasional Past Drug Use History: None Reported - Past Family History Father Family Medical History: No Reported History Additional Family Medical History / Comment(s): Father is alive at age 61 was no major medical problems. Mother Family Medical History: No Reported History Additional Family Medical History / Comment(s): Mother is alive at age 56 with history of spinal surgeries and neurological disorders. Patient's troponin is and one sister with no major medical problems. Patient has 1 son and 1 daughter with no major medical problems. General Exam - General Exam Comments Initial Comments: GENERAL: Patient is well-developed and well-nourished. Patient is nontoxic and in no acute distress. HEAD: Atraumatic, normocephalic. EYES: Pupils equal round and reactive to light, extraocular movements intact, sclera anicteric, conjunctiva are normal. Eyelids were unremarkable. ENT: Nares patent, oropharynx clear without exudates. Moist mucous membranes. Patient has a many decayed teeth, dental caries, he does have some pain along the right lower gumline, no visible abscess seen. Patient has some very mild right sided facial swelling. NECK: Normal range of motion, supple without lymphadenopathy or JVD. LUNGS: Unlabored respirations. Breath sounds clear to auscultation bilaterally and equal. No wheezes rales or rhonchi. HEART: Regular rate and rhythm without murmurs, rubs or gallops. ABDOMEN: Soft, nontender, normoactive bowel sounds. NEUROLOGICAL: Patient is alert and oriented x 3. SKIN: Warm, Dry, normal turgor, no rashes or lesions noted. Limitations: no limitations Course Vital Signs 10/01/21 22:48 Temperature 98.2 F Pulse Rate 102 H Respiratory 20 Rate Blood Pressure 172/102 O2 Sat by Pulse 96 Oximetry Medical Decision Making - Medical Decision Making Patient is a 32-year-old male here with right-sided dental pain that started today. He has some mild facial swelling, many dental caries on exam, no visible dental abscess. Patient be given pain control started on antibiotics. Here he made a phone call to his dentist. Return parameters were discussed with him and he verbalized understanding. Disposition Clinical Impression: Dental caries, Toothache, Dental abscess Disposition: HOME SELF-CARE Condition: Stable Instructions (If sedation given, give patient instructions): Dental Abscess (ED) Additional Instructions: Please return to the Emergency Department if symptoms worsen or any other concerns. Take medications as prescribed. Alternate between Tylenol and Motrin for pain control. Follow up with her dentist. Prescriptions: Penicillin V Potassium [Pen Vee K] 500 mg PO QID 7 Days #28 tablet Is patient prescribed a controlled substance at d/c from ED?: No Referrals: Nik Paula MD [Primary Care Provider] - 1-2 days Time of Disposition: 01:02
== END 2021-10-02 02:03 | disposition home or self-care (01) ==
LOC: EC 22:04
DX: K02.9 Dental caries, unspecified (principal); K04.7 Periapical abscess without sinus; K08.89 Other specified disorders of teeth and supporting structures; F41.9 Anxiety disorder, unspecified; F43.10 Post-traumatic stress disorder, unspecified; Z72.89 Other problems related to lifestyle
CPT/HCPCS: 99282; 96372; J2270

== ENCOUNTER 2021-10-12 21:23 | Emergency (ER) | payer MEDICARE ==
[2021-10-12 22:17] VITALS: BP 131/89; PULSE 109; RESP 20; TEMP 98.4
[2021-10-12] MEDS ORDERED: DIPH,PERTUS(ACELL)TETVAC-LF 0.5 ML VIAL IM ONE (22:42)
[2021-10-12] MEDS ORDERED: AMOXIC-POT CLAV 875-125MG 1 EACH TAB PO STA (22:43)
[2021-10-12] MEDS ORDERED: RABIES IMMUNE GLOB 300 UNIT/ML 1 ML VIAL IM ONE (23:00)
[2021-10-12] MEDS ORDERED: RABIES VACCINE (PCEC) 2.5 UNIT KIT IM ONE (23:00)
--- NOTE | 2021-10-12 23:04 | XR ---
EXAMINATION TYPE: XR wrist complete RT DATE OF EXAM: 10/12/2021 COMPARISON: NONE HISTORY: Bite on the right wrist. Pain. TECHNIQUE: 4 views FINDINGS: Carpal bones are intact. I see no fracture nor dislocation. Joint spaces are normal. IMPRESSION: Negative right wrist exam. No fracture.
--- NOTE | 2021-10-12 23:13 | ED ---
General Adult HPI - General Chief complaint: Animal Bite Stated complaint: bit by a possum Time Seen by Provider: 10/12/21 22:36 Source: patient, RN notes reviewed, old records reviewed Mode of arrival: ambulatory Limitations: no limitations - History of Present Illness Initial comments: 40-year-old male presenting with possum bite to the right wrist. This occurred just prior to arrival. He states that he was at home, noticed a possum in his trash on his porch. The possible was aggressive towards his dogs. He had gone outside in the possum had bit his right wrist. The animal then ran away and is not available. No other injuries. Patient states his tetanus is not up-to-date. - Related Data Home Medications Medication Instructions Recorded Confirmed EPINEPHrine (Auto Inject) [Epipen] 0.3 mg IM ONCE PRN 08/22/19 01/19/21 Gabapentin [Neurontin] 400 mg PO TID 08/22/19 01/19/21 HYDROcodone/APAP 10-325MG [[place] 1 tab PO Q6H PRN 08/22/19 01/19/21 10-325] PARoxetine HCL [Paxil] 60 mg PO DAILY 08/22/19 01/19/21 Prazosin HCl 6 mg PO HS PRN 08/22/19 01/19/21 Omeprazole 40 mg PO DAILY PRN 10/09/20 01/19/21 traZODone HCL 150 mg PO HS 10/09/20 01/19/21 Cyclobenzaprine [Flexeril] 10 mg PO TID 01/19/21 01/19/21 Previous Rx's Medication Instructions Recorded predniSONE 50 mg PO DAILY #5 tab 01/19/21 Cephalexin [Keflex] 500 mg PO Q6H #40 cap 06/06/21 Cyclobenzaprine [Flexeril] 10 mg PO TID #15 tab 09/30/21 Penicillin V Potassium [Pen Vee K] 500 mg PO QID 7 Days #28 tablet 10/02/21 Amoxicillin/Potassium Clav 1 tab PO BID 10 Days #20 tab 10/12/21 [Augmentin 875-125 Tablet] Allergies Allergy/AdvReac Type Severity Reaction Status Date / Time ketorolac tromethamine Allergy Rash/Hives Verified 10/12/21 22:14 [From Toradol] naproxen Allergy Nausea & Verified 10/12/21 22:14 Vomiting & Diarrhea venom-honey bee Allergy Unknown Verified 10/12/21 22:14 [bee venom (honey bee)] Review of Systems ROS Statement: Those systems with pertinent positive or pertinent negative responses have been documented in the HPI. ROS Other: All systems not noted in ROS Statement are negative. Past Medical History Past Medical History: No Reported History Additional Past Medical History / Comment(s): chronic knee pain, back pain History of Any Multi-Drug Resistant Organisms: MRSA Date of last positivie culture/infection: 2008 MDRO Source:: thumb Past Surgical History: Appendectomy, Back Surgery, Orthopedic Surgery Additional Past Surgical History / Comment(s): l4-5 fusion march 2020, carpel tunnnel release, vascectomy, skin graft knee surg x4, hip surgery. bowel surgery Past Psychological History: Anxiety, PTSD Smoking Status: Former smoker Past Alcohol Use History: Occasional Past Drug Use History: None Reported - Past Family History Father Family Medical History: No Reported History Additional Family Medical History / Comment(s): Father is alive at age 61 was no major medical problems. Mother Family Medical History: No Reported History Additional Family Medical History / Comment(s): Mother is alive at age 56 with history of spinal surgeries and neurological disorders. Patient's troponin is and one sister with no major medical problems. Patient has 1 son and 1 daughter with no major medical problems. General Exam Limitations: no limitations General appearance: alert, in no apparent distress Head exam: Present: atraumatic, normocephalic Eye exam: Present: normal appearance, PERRL ENT exam: Present: normal exam Neck exam: Present: normal inspection. Absent: tenderness, meningismus Respiratory exam: Present: normal lung sounds bilaterally. Absent: respiratory distress, wheezes Cardiovascular Exam: Present: regular rate, normal rhythm GI/Abdominal exam: Present: soft. Absent: distended, tenderness, guarding Extremities exam: Present: other (2 puncture wounds to the wrist, one dorsal and ventral on the right. These are fairly superficial. These or not repairable. Motion of the fingers is intact, there is no significant swelling, normal cap refill) Course Vital Signs 10/12/21 22:14 Temperature 98.4 F Pulse Rate 109 H Respiratory 20 Rate Blood Pressure 131/89 O2 Sat by Pulse 96 Oximetry - Reevaluation(s) Reevaluation #1: 10/12/21 23:09 Did discuss case with poison control who recommends rabies prophylaxis although possible bites are extremely low risk. Additionally the patient's tetanus is updated and he is given a dose of antibiotics in the emergency department. Medical Decision Making - Medical Decision Making 50-year-old male with possum bite. Patient's given both tetanus and rabies prophylaxis. X-rays performed which is negative for foreign body. He's also started on antibiotics. He's told to return to the emergency department for continued rabies vaccines. He should return on day 01/05/2014. Wound was copiously irrigated in the emergency department. Disposition Clinical Impression: Bite by animal Disposition: HOME SELF-CARE Condition: Good Instructions (If sedation given, give patient instructions): Animal Bite (ED) Additional Instructions: Please return in 3 days, 7 days, and 14 days. Prescriptions: Amoxicillin/Potassium Clav [Augmentin 875-125 Tablet] 1 tab PO BID 10 Days #20 tab Is patient prescribed a controlled substance at d/c from ED?: No Referrals: Nik Paula MD [Primary Care Provider] - 1-2 days Time of Disposition: 23:12
[2021-10-12] MEDS ORDERED: RABIES IMMUNE GLOB 300 UNIT/ML 5 ML VIAL IM ONE (23:30)
[2021-10-12] MEDS ORDERED: HYDROcodone/APAP 5-325MG 1 EACH TAB PO STA (23:35)
== END 2021-10-13 01:28 | disposition home or self-care (01) ==
LOC: EC 21:23
DX: S61.551A Open bite of right wrist, initial encounter (principal); Z87.891 Personal history of nicotine dependence; Z88.6 Allergy status to analgesic agent; Z91.030 Bee allergy status; Z23 Encounter for immunization; W55.81XA Bitten by other mammals, initial encounter
CPT/HCPCS: 90375; 90471; 90675; 90715; 99283

== ENCOUNTER 2021-10-30 23:08 | Emergency (ER) | payer MEDICARE ==
[2021-10-30 23:20] VITALS: RESP 18; TEMP 97.9
[2021-10-31] MEDS ORDERED: MORPHINE SULFATE 4 MG/ML SYRINGE IM STA (01:13)
[2021-10-31] MEDS ORDERED: ORPHENADRINE 30 MG/ML 2 ML VIAL IM STA (01:13)
--- NOTE | 2021-10-31 01:35 | XR ---
EXAMINATION TYPE: XR lumbosacral spine min 4V DATE OF EXAM: 10/31/2021 COMPARISON: NONE HISTORY: Fall. Pain. TECHNIQUE: 6 views FINDINGS: There is a first-degree L4-5 spondylolisthesis. There is posterior fusion surgery at L4-5 w ith rods and screws. There is disc prosthesis at L4-5 which is somewhat anterior. The L4-5 subluxatio n measures 11 mm. There is no compression fracture. Sacroiliac joints are intact. IMPRESSION: Posterior fusion surgery. First degree L4-5 spondylolisthesis without significant change in position compared to last exam. No acute bony abnormality. IMPRESSION:
--- NOTE | 2021-10-31 01:45 | ED ---
Back Pain HPI - General Chief Complaint: Back Pain/Injury Stated Complaint: Fall, back pain Time Seen by Provider: 10/31/21 00:59 Source: patient Limitations: no limitations - History of Present Illness Initial Comments: 40 year-old male patient presents to the emergency department for evaluation of low back pain with radiation down the left leg. States symptoms started after a slip and fall on the ice a couple of hours prior to arrival. States that he does have chronic back pain with "failed lumbar fusion". States he is scheduled to undergo revision in December. He states that since the fall he has had left leg numbness that will turn to pins and needles sensation over the entirety of the leg. States this has not impaired his ability to ambulate. He denies saddle anesthesia or loss of bowel or bladder control. He denies fever, chills, or abdominal pain. Denies hitting his head or losing consciousness with the fall. Denies any other injuries. - Related Data Home Medications Medication Instructions Recorded Confirmed EPINEPHrine (Auto Inject) [Epipen] 0.3 mg IM ONCE PRN 08/22/19 10/15/21 Gabapentin [Neurontin] 400 mg PO TID 08/22/19 10/15/21 HYDROcodone/APAP 10-325MG [[place] 1 tab PO Q6H PRN 08/22/19 10/15/21 10-325] PARoxetine HCL [Paxil] 60 mg PO DAILY 08/22/19 10/15/21 Prazosin HCl 6 mg PO HS PRN 08/22/19 10/15/21 Omeprazole 40 mg PO DAILY PRN 10/09/20 10/15/21 traZODone HCL 150 mg PO HS 10/09/20 10/15/21 Cyclobenzaprine [Flexeril] 10 mg PO TID 01/19/21 10/15/21 Previous Rx's Medication Instructions Recorded predniSONE 50 mg PO DAILY #5 tab 01/19/21 Cephalexin [Keflex] 500 mg PO Q6H #40 cap 06/06/21 Cyclobenzaprine [Flexeril] 10 mg PO TID #15 tab 09/30/21 Penicillin V Potassium [Pen Vee K] 500 mg PO QID 7 Days #28 tablet 10/02/21 Amoxicillin/Potassium Clav 1 tab PO BID 10 Days #20 tab 10/12/21 [Augmentin 875-125 Tablet] Allergies Allergy/AdvReac Type Severity Reaction Status Date / Time ketorolac tromethamine Allergy Rash/Hives Verified 10/30/21 23:16 [From Toradol] naproxen Allergy Nausea & Verified 10/30/21 23:16 Vomiting & Diarrhea venom-honey bee Allergy Unknown Verified 10/30/21 23:16 [bee venom (honey bee)] Review of Systems ROS Statement: Those systems with pertinent positive or pertinent negative responses have been documented in the HPI. ROS Other: All systems not noted in ROS Statement are negative. Past Medical History Past Medical History: No Reported History Additional Past Medical History / Comment(s): chronic knee pain, back pain History of Any Multi-Drug Resistant Organisms: MRSA Date of last positivie culture/infection: 2008 MDRO Source:: thumb Past Surgical History: Appendectomy, Back Surgery, Orthopedic Surgery Additional Past Surgical History / Comment(s): l4-5 fusion march 2020, carpel tunnnel release, vascectomy, skin graft knee surg x4, hip surgery. bowel surgery Past Anesthesia/Blood Transfusion Reactions: No Reported Reaction Past Psychological History: Anxiety, PTSD Smoking Status: Former smoker Past Alcohol Use History: Occasional Past Drug Use History: None Reported - Past Family History Father Family Medical History: No Reported History Additional Family Medical History / Comment(s): Father is alive at age 61 was no major medical problems. Mother Family Medical History: No Reported History Additional Family Medical History / Comment(s): Mother is alive at age 56 with history of spinal surgeries and neurological disorders. Patient's troponin is and one sister with no major medical problems. Patient has 1 son and 1 daughter with no major medical problems. General Exam Limitations: no limitations General appearance: alert, in no apparent distress, other (This is a well- developed, well-nourished adult male in no acute distress.) Neck exam: Present: normal inspection, full ROM, other (Nontender, no step-off, no deformity to firm midline palpation of the posterior cervical spine. Full range of motion without pain or limitation.). Absent: tenderness, meningismus, lymphadenopathy Respiratory exam: Present: normal lung sounds bilaterally. Absent: respiratory distress, wheezes, rales, rhonchi, stridor Cardiovascular Exam: Present: regular rate, normal rhythm, normal heart sounds. Absent: systolic murmur, diastolic murmur, rubs, gallop, clicks GI/Abdominal exam: Present: soft, normal bowel sounds. Absent: distended, tend erness, guarding, rebound, rigid Extremities exam: Present: normal inspection, full ROM, normal capillary refill, other (Skin to the legs is pink, warm, dry. Cap refill less than 3 seconds. Pedal and posttibial pulses 2+.). Absent: tenderness, pedal edema, joint swelling, calf tenderness Back exam: Present: normal inspection. Absent: vertebral tenderness Neurological exam: Present: alert, oriented X3, CN II-XII intact, other (Strength to the lower extremities is 5/5.) Psychiatric exam: Present: normal affect, normal mood Skin exam: Present: warm, dry, intact, normal color. Absent: rash Course Vital Signs 10/30/21 10/31/21 23:16 02:44 Temperature 97.9 F Pulse Rate 121 H 107 H Respiratory 18 18 Rate Blood Pressure 123/82 122/81 O2 Sat by Pulse 96 96 Oximetry Medical Decision Making - Medical Decision Making 40-year-old male patient presents to the emergency department today for evaluation of worsened low back pain and left leg pain after a slip and fall accident. Physical examination did reveal normal-appearing back no signs of ecchymosis. Neurovascular status to the legs is intact. He has good strength of the lower extremities. Ambulating without difficulty. He is given IM dose of morphine and Norflex. X-ray of the lumbar spine was negative. Did discharge follow up with his neurosurgeon for further evaluation as soon as possible. Return parameters were discussed in detail. He verbalizes understanding and agrees with this plan. My attending is Dr. Wade. - Radiology Data Radiology results: report reviewed, image reviewed 6 views of lumbosacral spine are obtained. Report was reviewed in its entirety. Impression by Dr. Colon shows posterior fusion surgery. First-degree L4 to 5 spondylolisthesis without significant change of position compared to last exam. No acute bony abnormality. Disposition Clinical Impression: Acute exacerbation of chronic low back pain Disposition: HOME SELF-CARE Condition: Good Instructions (If sedation given, give patient instructions): Acute Low Back Pain (ED) Additional Instructions: Apply ice to the painful areas. Take home pain medication as prescribed. Follow-up with your primary care physician and neurosurgeon for further evaluation as soon as possible. Return for any new, worsening, or concerning symptoms. Is patient prescribed a controlled substance at d/c from ED?: No Referrals: Nik Paula MD [Primary Care Provider] - 1-2 days Time of Disposition: 01:44
[2021-10-31 02:44] VITALS: BP 122/81; PULSE 107
== END 2021-10-31 02:45 | disposition home or self-care (01) ==
LOC: EC 23:08
DX: G89.29 Other chronic pain (principal); M54.50 Low back pain, unspecified; F41.9 Anxiety disorder, unspecified; Z87.891 Personal history of nicotine dependence; Z79.899 Other long term (current) drug therapy; W01.0XXA Fall on same level from slipping, tripping and stumbling without subsequent striking against object, initial encounter
CPT/HCPCS: 72110; 96372; 99284; J2360

== ENCOUNTER 2021-11-23 20:30 | Emergency (ER) | payer MEDICARE ==
[2021-11-23 20:35] VITALS: BP 133/75; PULSE 106; RESP 20; TEMP 97.4
[2021-11-23] MEDS ORDERED: MORPHINE SULFATE 4 MG/ML SYRINGE IM STA (21:34)
--- NOTE | 2021-11-23 22:22 | CT ---
EXAMINATION TYPE: CT brain wo con DATE OF EXAM: 11/23/2021 COMPARISON: 05/21/2016 HISTORY: Fall, hit head, unsure of LOC CT DLP: 1186.4 mGycm Automated exposure control for dose reduction was used. Ventricles have normal size. There is no mass effect or midline shift. There is no sign of intracrani al hemorrhage. Calvarium is intact. Skull base is intact. There is normal aeration of the mastoid sin uses. IMPRESSION: Negative unenhanced head CT scan. There is improvement in the ethmoid and frontal sinusitis compared to the old exam.
--- NOTE | 2021-11-23 22:26 | CT ---
EXAMINATION TYPE: CT lumbar spine wo con DATE OF EXAM: 11/23/2021 COMPARISON: 09/30/2021 HISTORY: Fall, lower back pain CT DLP: 2036.6 mGycm Automated exposure control for dose reduction was used. Images obtained from the level of T12-S3 vertebra without contrast. 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 There is first-degree L4-5 spondylolisthesis. There is rods and screws fus ing posteriorly the lumbar spine at L4-5. There is disc prosthesis at L4-5. There is no compression f racture. There is no lumbar paraspinal mass. The sacroiliac joints are intact. There is no evidence of a mass. IMPRESSION: Previous surgery. L4-5 spondylolisthesis which is stable compared to old exam. No acute bony abnormal ity.
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
== END 2021-11-23 23:36 | disposition home or self-care (01) ==
LOC: EC 20:30
DX: M54.59 Other low back pain (principal); G89.29 Other chronic pain; S09.90XA Unspecified injury of head, initial encounter; F43.10 Post-traumatic stress disorder, unspecified; F41.9 Anxiety disorder, unspecified; Z87.891 Personal history of nicotine dependence; Z72.89 Other problems related to lifestyle; W01.0XXA Fall on same level from slipping, tripping and stumbling without subsequent striking against object, initial encounter
CPT/HCPCS: 72131; 70450; 99284; 96372; J2270

== ENCOUNTER 2021-12-18 23:17 | Emergency (ER) | payer MEDICARE ==
[2021-12-18 23:23] VITALS: RESP 18; TEMP 98.9
--- NOTE | 2021-12-18 23:34 | ED ---
Fall HPI - General Chief Complaint: Fall Stated Complaint: Fall, back and chest pain Time Seen by Provider: 12/18/21 23:31 Source: patient, RN notes reviewed, old records reviewed Mode of arrival: wheelchair Limitations: no limitations - History of Present Illness Initial Comments: This is a 32-year-old male status post fall fall slip on the ice did land on her shoulders shoulders and upper back. Complaining of shoulders and upper back pain. Patient has no other complaints aside from pain. No shortness of breath. Did not his head no loss of consciousness. Follows. Mechanical he did slip on ice his feet went out from underneath him. No other complaints able to walk unable to the emergency department MD Complaint: fall -: days(s) Fall From: standing When Fall Occurred: [address] Fall Occurred: home Loss of Consciousness: none Prolonged Down Time?: no Symptoms Prior to Fall: none Location: chest, back Severity: moderate Severity scale (1-10): 4 Quality: sharp, aching Context: tripped/slipped Associated Symptoms: denies - Related Data Home Medications Medication Instructions Recorded Confirmed EPINEPHrine (Auto Inject) [Epipen] 0.3 mg IM ONCE PRN 08/22/19 11/23/21 Gabapentin [Neurontin] 400 mg PO TID PRN 08/22/19 11/23/21 HYDROcodone/APAP 10-325MG [[place] 1 tab PO QID 08/22/19 11/23/21 10-325] PARoxetine HCL [Paxil] 60 mg PO DAILY 08/22/19 11/23/21 traZODone HCL 150 mg PO HS 10/09/20 11/23/21 Ibuprofen [Motrin] 800 mg PO Q8H PRN 11/23/21 11/23/21 Metoprolol Tartrate [Lopressor] 12.5 mg PO BID 11/23/21 11/23/21 hydrOXYzine pamoate [Vistaril] 25 mg PO HS 11/23/21 11/23/21 Allergies Allergy/AdvReac Type Severity Reaction Status Date / Time ketorolac tromethamine Allergy Rash/Hives Verified 12/18/21 23:23 [From Toradol] naproxen Allergy Nausea & Verified 12/18/21 23:23 Vomiting & Diarrhea venom-honey bee Allergy Unknown Verified 12/18/21 23:23 [bee venom (honey bee)] Review of Systems ROS Statement: Those systems with pertinent positive or pertinent negative responses have been documented in the HPI. ROS Other: All systems not noted in ROS Statement are negative. Past Medical History Past Medical History: No Reported History Additional Past Medical History / Comment(s): chronic knee pain, back pain History of Any Multi-Drug Resistant Organisms: MRSA Date of last positivie culture/infection: 2008 MDRO Source:: thumb Past Surgical History: Appendectomy, Back Surgery, Orthopedic Surgery Additional Past Surgical History / Comment(s): l4-5 fusion march 2020, carpel tunnnel release, vascectomy, skin graft knee surg x4, hip surgery. bowel surgery Past Anesthesia/Blood Transfusion Reactions: No Reported Reaction Past Psychological History: Anxiety, PTSD Smoking Status: Former smoker Past Alcohol Use History: Occasional Past Drug Use History: None Reported - Past Family History Father Family Medical History: No Reported History Additional Family Medical History / Comment(s): Father is alive at age 61 was no major medical problems. Mother Family Medical History: No Reported History Additional Family Medical History / Comment(s): Mother is alive at age 56 with history of spinal surgeries and neurological disorders. Patient's troponin is and one sister with no major medical problems. Patient has 1 son and 1 daughter with no major medical problems. General Exam Limitations: no limitations General appearance: alert, in no apparent distress Head exam: Present: atraumatic, normocephalic, normal inspection Eye exam: Present: normal appearance, PERRL, EOMI. Absent: scleral icterus, conjunctival injection, periorbital swelling ENT exam: Present: normal exam, mucous membranes moist Neck exam: Present: normal inspection. Absent: tenderness, meningismus, lymphadenopathy Respiratory exam: Present: normal lung sounds bilaterally. Absent: respiratory distress, wheezes, rales, rhonchi, stridor Cardiovascular Exam: Present: regular rate, normal rhythm, normal heart sounds. Absent: systolic murmur, diastolic murmur, rubs, gallop, clicks GI/Abdominal exam: Present: soft, normal bowel sounds. Absent: distended, tenderness, guarding, rebound, rigid Extremities exam: Present: normal inspection, full ROM, normal capillary refill. Absent: tenderness, pedal edema, joint swelling, calf tenderness Back exam: Present: tenderness (Bilateral scapular area) Neurological exam: Present: alert, oriented X3, CN II-XII intact Psychiatric exam: Present: normal affect, normal mood Skin exam: Present: warm, dry, intact, normal color. Absent: rash Course Vital Signs 12/18/21 23:21 Temperature 98.9 F Pulse Rate 104 H Respiratory 18 Rate Blood Pressure 133/89 O2 Sat by Pulse 98 Oximetry - Reevaluation(s) Reevaluation #1: 12/19/21 01:38 Medical record is reviewed Reevaluation #2: 12/19/21 01:38 This pain is currently improved Reevaluation #3: 12/19/21 01:38 Patient informed results and is okay for discharge Medical Decision Making - Medical Decision Making 40 male to the emergency department for evaluation. Patient presents today for evaluation regarding fall fall with upper back pain. No other significant complaints. Patient pain is well-controlled he can be discharged home - Radiology Data Radiology results: report reviewed (This x-ray and T-spine x-ray are negative for acute disease), image reviewed Disposition Clinical Impression: Fall, Contusion of thoracic spine Disposition: HOME SELF-CARE Condition: Good Instructions (If sedation given, give patient instructions): Fall Prevention for Older Adults (ED) Is patient prescribed a controlled substance at d/c from ED?: No Referrals: Nik Paula MD [Primary Care Provider] - 1-2 days
[2021-12-19] MEDS ORDERED: HYDROmorphone 1 MG/ML 1 ML SYRINGE IM STA (00:16)
[2021-12-19] MEDS ORDERED: ACETAMINOPHEN TAB 500 MG TAB PO STA (00:16)
--- NOTE | 2021-12-19 01:03 | XR ---
EXAMINATION TYPE: XR thoracic spine 2V DATE OF EXAM: 12/19/2021 COMPARISON: NONE HISTORY: Fall on the ice. Pain TECHNIQUE: 3 views FINDINGS: The vertebral abnormal alignment. Posterior elements are intact. There is no paraspinal mas s. There is no significant compression fracture. IMPRESSION: Negative thoracic spine exam. No evidence of an acute fracture.
--- NOTE | 2021-12-19 01:04 | XR ---
EXAMINATION TYPE: XR chest 2V DATE OF EXAM: 12/19/2021 COMPARISON: 10/09/2020 HISTORY: Chest pain TECHNIQUE: 2 views FINDINGS: Heart and mediastinum are normal. Lungs are clear of infiltrate. Pulmonary vascularity is n ormal. Bony thorax is intact. IMPRESSION: Normal chest. No adverse change.
[2021-12-19] MEDS ORDERED: ACET/COD 300 MG/30 MG STARTER PACK 6 TAB BTL PO STA (02:02)
[2021-12-19 02:16] VITALS: BP 139/74; PULSE 84
== END 2021-12-19 02:16 | disposition home or self-care (01) ==
LOC: EC 23:17
DX: S20.223A Contusion of bilateral back wall of thorax, initial encounter (principal); F41.9 Anxiety disorder, unspecified; F43.10 Post-traumatic stress disorder, unspecified; Z87.891 Personal history of nicotine dependence; Z88.1 Allergy status to other antibiotic agents; Z90.49 Acquired absence of other specified parts of digestive tract; W00.0XXA Fall on same level due to ice and snow, initial encounter
CPT/HCPCS: 99283; 96372; 72070; 71046; J1170

== ENCOUNTER 2021-12-22 22:52 | Emergency (ER) | payer MEDICARE ==
[2021-12-22 22:59] VITALS: BP 119/87; PULSE 110; RESP 20; TEMP 97.6
[2021-12-22] MEDS ORDERED: HYDROcodone/APAP 5-325MG 1 EACH TAB PO STA (23:25)
--- NOTE | 2021-12-22 23:32 | ED ---
Fall HPI - General Chief Complaint: Fall Stated Complaint: Fall, back pain Time Seen by Provider: 12/22/21 23:15 Source: patient Mode of arrival: ambulatory - History of Present Illness Initial Comments: This is a pleasant 41-year-old male presents to emergency department complaining of low back pain. Patient states she Was struck about 7 PM and slipped. Patient states he hit his head on the running board and also landed on his back. Patient has a history of previous back surgery and is actually scheduled to have revision surgery at [facility] coming up in a few weeks. Patient states he called his neurosurgeon was told to come in to get the injury documented. Also, when she urination. He denies any symptoms of saddle anesthesia. No radicular pain. Pain is relegated to the lumbar area. No midline pain. Patient did strike his head but states he did not lose consciousness. Recalls the entire event. No nausea or vomiting. No vision or hearing changes. No numbness or tingling. Pain. Patient is not on blood thinners. No headache, no fever or chills, no changes in vision or hearing, no sore throat or difficulty with speech, no neck pain, no chest pain or shortness of breath, no abdominal pain, no nausea or vomiting, no changes in urination or bowel movements, no numbness or tingling, no extremity pain, no skin rashes or lesions. 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 Witnessed: no Place Fall Occurred: other Loss of Consciousness: none Prolonged Down Time?: no Symptoms Prior to Fall: none Location: back Severity: moderate Severity scale (1-10): 5 Quality: sharp Context: tripped/slipped, other (No radiation, exacerbated by movement, alleviated by rest) Associated Symptoms: denies - Related Data Home Medications Medication Instructions Recorded Confirmed EPINEPHrine (Auto Inject) [Epipen] 0.3 mg IM ONCE PRN 08/22/19 11/23/21 Gabapentin [Neurontin] 400 mg PO TID PRN 08/22/19 11/23/21 HYDROcodone/APAP 10-325MG [[place] 1 tab PO QID 08/22/19 11/23/21 10-325] PARoxetine HCL [Paxil] 60 mg PO DAILY 08/22/19 11/23/21 traZODone HCL 150 mg PO HS 10/09/20 11/23/21 Ibuprofen [Motrin] 800 mg PO Q8H PRN 11/23/21 11/23/21 Metoprolol Tartrate [Lopressor] 12.5 mg PO BID 11/23/21 11/23/21 hydrOXYzine pamoate [Vistaril] 25 mg PO HS 11/23/21 11/23/21 Allergies Allergy/AdvReac Type Severity Reaction Status Date / Time ketorolac tromethamine Allergy Rash/Hives Verified 12/22/21 22:56 [From Toradol] naproxen Allergy Nausea & Verified 12/22/21 22:56 Vomiting & Diarrhea venom-honey bee Allergy Unknown Verified 12/22/21 22:56 [bee venom (honey bee)] Review of Systems ROS Statement: Those systems with pertinent positive or pertinent negative responses have been documented in the HPI. ROS Other: All systems not noted in ROS Statement are negative. Past Medical History Past Medical History: No Reported History Additional Past Medical History / Comment(s): chronic knee pain, back pain History of Any Multi-Drug Resistant Organisms: MRSA Date of last positivie culture/infection: 2008 MDRO Source:: thumb Past Surgical History: Appendectomy, Back Surgery, Orthopedic Surgery Additional Past Surgical History / Comment(s): l4-5 fusion march 2020, carpel tunnnel release, vascectomy, skin graft knee surg x4, hip surgery. bowel surgery Past Anesthesia/Blood Transfusion Reactions: No Reported Reaction Past Psychological History: Anxiety, PTSD Smoking Status: Former smoker Past Alcohol Use History: Occasional Past Drug Use History: None Reported - Past Family History Father Family Medical History: No Reported History Additional Family Medical History / Comment(s): Father is alive at age 61 was no major medical problems. Mother Family Medical History: No Reported History Additional Family Medical History / Comment(s): Mother is alive at age 56 with history of spinal surgeries and neurological disorders. Patient's troponin is and one sister with no major medical problems. Patient has 1 son and 1 daughter with no major medical problems. General Exam Limitations: no limitations Course Vital Signs 12/22/21 22:56 Temperature 97.6 F Pulse Rate 110 H Respiratory 20 Rate Blood Pressure 119/87 O2 Sat by Pulse 98 Oximetry Medical Decision Making - Medical Decision Making -There are no red flags for concerning back pathology. Specifically: -No history of cancer, this is not a mass effect, MRI not indicated. -No anticoagulation, this is not a bleed. -No fevers, no IVDU, this is not an infectious process. -BACK contusion, x-rays ordered -With a normal neuro exam, and no urinary or bowel retention or incontinence, there is no clinical sign of motor defect or cauda equina - MRI is not indicated at this point. -No pulsating abdominal mass or risk factors for AAA. -Pain is relieved with rest, which is also less concerning. -I do not believe that x-rays or emergent MRI is indicated at this time. -We will treat symptomatically and discharge home with follow up instructions. -Stretching/strengthening exercise given to patient and they will be referred to physical therapy -Patient is instructed to use [id number] analgesics as directed on packaging for pain. Follow-up with your regular physician as directed. Return to the ER immediately if any symptoms worsen, new symptoms arise, or any other problems develop. Patient does not meet criteria for imaging based on [place] CT rules. - Radiology Data Radiology results: report reviewed, image reviewed Disposition Clinical Impression: Contusion of lower back, Closed head injury Narrative: Stable appearing L4 on L5 spondylolisthesis Disposition: HOME SELF-CARE Condition: Stable Instructions (If sedation given, give patient instructions): Head Injury (ED) Additional Instructions: Follow-up with your regular physician as directed. Return to the ER immediately if any symptoms worsen, new symptoms arise, or any other problems develop. Call your neurosurgeon tomorrow morning to schedule follow-up appointment. Is patient prescribed a controlled substance at d/c from ED?: No Referrals: Nik Paula MD [Primary Care Provider] - 1-2 days Time of Disposition: 23:55
--- NOTE | 2021-12-22 23:48 | XR ---
EXAMINATION TYPE: XR lumbosacral spine min 4V DATE OF EXAM: 12/22/2021 COMPARISON: 10/31/2021 HISTORY: Fall. Pain TECHNIQUE: 5 views FINDINGS: There is posterior fusion surgery at L4-5. There are rods and screws. There is disc prosthe sis at L4-5. There is a 1 cm anterior subluxation of L4 in relation L5. Sacroiliac joints are intact. IMPRESSION: Posterior fusion surgery. First degree L4-5 spondylolisthesis appears stable compared to old exam. No acute bony abnormality.
== END 2021-12-23 00:28 | disposition home or self-care (01) ==
LOC: EC 22:52
DX: S30.0XXA Contusion of lower back and pelvis, initial encounter (principal); S09.90XA Unspecified injury of head, initial encounter; F41.9 Anxiety disorder, unspecified; Z87.891 Personal history of nicotine dependence; Z79.899 Other long term (current) drug therapy; W01.0XXA Fall on same level from slipping, tripping and stumbling without subsequent striking against object, initial encounter
CPT/HCPCS: 72110; 99284

== ENCOUNTER 2021-12-27 20:53 | Emergency (ER) | payer MEDICARE ==
[2021-12-27 21:07] VITALS: TEMP 97.9
[2021-12-28] MEDS ORDERED: ORPHENADRINE 30 MG/ML 2 ML VIAL IM STA (01:31)
[2021-12-28] MEDS ORDERED: HYDROmorphone 1 MG/ML 1 ML SYRINGE IM STA (01:31)
--- NOTE | 2021-12-28 01:38 | ED ---
General Adult HPI - General Chief complaint: Fall Stated complaint: Fall Time Seen by Provider: 12/28/21 01:25 Source: patient, RN notes reviewed, old records reviewed Mode of arrival: ambulatory Limitations: no limitations - History of Present Illness Initial comments: 41-year-old male presents to the emergency room ambulatory after slip and fall today at 4:30 on the ice. Patient landed on his buttocks and states he has sacral back pain. He showed video of the fall on his phone. He states he is scheduled for a revision of his back fusion at the [facility] on January 06. He states he takes Crowley at home for his chronic back pain however he can not get pain relief. He is requesting one shot of Dilaudid to help control the pain so he can go home. -: hour(s) (9) Radiation: back Severity scale (1-10): 9 Quality: constant Consistency: constant Associated Symptoms: denies other symptoms Treatments Prior to Arrival: none - Related Data Home Medications Medication Instructions Recorded Confirmed EPINEPHrine (Auto Inject) [Epipen] 0.3 mg IM ONCE PRN 08/22/19 11/23/21 Gabapentin [Neurontin] 400 mg PO TID PRN 08/22/19 11/23/21 HYDROcodone/APAP 10-325MG [[place] 1 tab PO QID 08/22/19 11/23/21 10-325] PARoxetine HCL [Paxil] 60 mg PO DAILY 08/22/19 11/23/21 traZODone HCL 150 mg PO HS 10/09/20 11/23/21 Ibuprofen [Motrin] 800 mg PO Q8H PRN 11/23/21 11/23/21 Metoprolol Tartrate [Lopressor] 12.5 mg PO BID 11/23/21 11/23/21 hydrOXYzine pamoate [Vistaril] 25 mg PO HS 11/23/21 11/23/21 Allergies Allergy/AdvReac Type Severity Reaction Status Date / Time ketorolac tromethamine Allergy Rash/Hives Verified 12/27/21 21:07 [From Toradol] naproxen Allergy Nausea & Verified 12/27/21 21:07 Vomiting & Diarrhea venom-honey bee Allergy Unknown Verified 12/27/21 21:07 [bee venom (honey bee)] Review of Systems ROS Statement: Those systems with pertinent positive or pertinent negative responses have been documented in the HPI. ROS Other: All systems not noted in ROS Statement are negative. Past Medical History Past Medical History: No Reported History Additional Past Medical History / Comment(s): chronic knee pain, back pain History of Any Multi-Drug Resistant Organisms: MRSA Date of last positivie culture/infection: 2008 MDRO Source:: thumb Past Surgical History: Appendectomy, Back Surgery, Orthopedic Surgery Additional Past Surgical History / Comment(s): l4-5 fusion march 2020, carpel tunnnel release, vascectomy, skin graft knee surg x4, hip surgery. bowel surgery Past Anesthesia/Blood Transfusion Reactions: No Reported Reaction Past Psychological History: Anxiety, PTSD Smoking Status: Former smoker Past Alcohol Use History: Occasional Past Drug Use History: None Reported - Past Family History Father Family Medical History: No Reported History Additional Family Medical History / Comment(s): Father is alive at age 61 was no major medical problems. Mother Family Medical History: No Reported History Additional Family Medical History / Comment(s): Mother is alive at age 56 with history of spinal surgeries and neurological disorders. Patient's troponin is and one sister with no major medical problems. Patient has 1 son and 1 daughter with no major medical problems. General Exam Limitations: no limitations General appearance: alert, in no apparent distress Head exam: Present: atraumatic, normocephalic, normal inspection Eye exam: Present: normal appearance Neck exam: Present: normal inspection, full ROM. Absent: tenderness, meningismus, lymphadenopathy, thyromegaly Respiratory exam: Present: normal lung sounds bilaterally. Absent: chest wall tenderness, accessory muscle use, decreased breath sounds Cardiovascular Exam: Present: regular rate Back exam: Present: normal inspection, tenderness (Lumbar sacral spine), paraspinal tenderness (Lumbar sacral spine). Absent: CVA tenderness (R), CVA tenderness (L), rash noted Expanded Back exam: Absent: saddle anesthesia Neurological exam: Present: alert, oriented X3, normal gait Psychiatric exam: Present: normal affect, normal mood Skin exam: Present: warm, dry, intact, normal color. Absent: cyanosis, diaphoretic Course Vital Signs 12/27/21 12/28/21 21:05 02:02 Temperature 97.9 F Pulse Rate 96 76 Respiratory 18 16 Rate Blood Pressure 138/86 136/72 O2 Sat by Pulse 98 98 Oximetry Medical Decision Making - Medical Decision Making 32-year-old male with extensive back pain history with previous back surgeries presents to the emergency room after slip and fall today on the ice around 4:30 PM. He states he did not hit his head or lose consciousness. Patient was able to walk on his own. Denies any bowel or bladder incontinence. No red flag back pain signs. Patient has been seen in the hospital numerous times for chronic low back pain. He was offered an x-ray and declined. He is requesting a shot of Dilaudid and is willing to be discharged home to continue his normal pain regimen of Crowley. Patient is ambulatory in the room steady gait. There is no evidence of trauma. Lung sounds are clear. Case discussed with Dr. Wade Disposition Clinical Impression: Fall, Back pain Disposition: HOME SELF-CARE Condition: Good Instructions (If sedation given, give patient instructions): Back Pain (ED), Fall Prevention (ED) Additional Instructions: Keep your appointment with your surgeon on January 06 for your back surgery. Continue your previously prescribed pain medication regimen. Increase you fluid intake. Return to the emergency room with any new or concerning symptoms including loss of bowel or bladder continence, increasing pain or inability to ambulate. Is patient prescribed a controlled substance at d/c from ED?: No Referrals: Nik Paula MD [Primary Care Provider] - 1-2 days Time of Disposition: 01:38
[2021-12-28 02:03] VITALS: BP 136/72; PULSE 76; RESP 16
== END 2021-12-28 02:02 | disposition home or self-care (01) ==
LOC: EC 20:53
DX: M54.50 Low back pain, unspecified (principal); F41.9 Anxiety disorder, unspecified; Z87.891 Personal history of nicotine dependence; Z79.899 Other long term (current) drug therapy; W01.0XXA Fall on same level from slipping, tripping and stumbling without subsequent striking against object, initial encounter
CPT/HCPCS: 99283; 96372 ×2; J2360; J1170

== ENCOUNTER 2022-01-01 21:27 | Emergency (ER) | payer MEDICARE ==
[2022-01-01 22:08] VITALS: BP 125/79; PULSE 109; RESP 16; TEMP 98
[2022-01-01] MEDS ORDERED: MORPHINE SULFATE 4 MG/ML SYRINGE IM STA (23:53)
[2022-01-01] MEDS ORDERED: ORPHENADRINE 30 MG/ML 2 ML VIAL IM STA (23:53)
[2022-01-01] MEDS ORDERED: ACETAMINOPHEN TAB 500 MG TAB PO STA (23:53)
--- NOTE | 2022-01-01 23:56 | ED ---
Back Pain HPI - General Chief Complaint: Back Pain/Injury Stated Complaint: Back/leg pain Time Seen by Provider: 01/01/22 23:28 Source: patient, RN notes reviewed Limitations: no limitations - History of Present Illness Initial Comments: This is a pleasant 41-year-old male with chronic low back pain. He presents to the emergency department complaining of an acute exacerbation. Patient denies any problems with balance urination. Patient is scheduled for surgery on his lumbar spine on Wednesday of next week. He has hydrocodone at home for pain. States that he flared back up. He denies any fever or chills. No drug abuse. No abdominal pain. No chest pain or shortness of breath. No symptoms of saddle anesthesia. No neck pain, no headache, no direct trauma. MD Complaint: back pain - Related Data Home Medications Medication Instructions Recorded Confirmed EPINEPHrine (Auto Inject) [Epipen] 0.3 mg IM ONCE PRN 08/22/19 11/23/21 Gabapentin [Neurontin] 400 mg PO TID PRN 08/22/19 11/23/21 HYDROcodone/APAP 10-325MG [[place] 1 tab PO QID 08/22/19 11/23/21 10-325] PARoxetine HCL [Paxil] 60 mg PO DAILY 08/22/19 11/23/21 traZODone HCL 150 mg PO HS 10/09/20 11/23/21 Ibuprofen [Motrin] 800 mg PO Q8H PRN 11/23/21 11/23/21 Metoprolol Tartrate [Lopressor] 12.5 mg PO BID 11/23/21 11/23/21 hydrOXYzine pamoate [Vistaril] 25 mg PO HS 11/23/21 11/23/21 Allergies Allergy/AdvReac Type Severity Reaction Status Date / Time ketorolac tromethamine Allergy Rash/Hives Verified 12/27/21 21:07 [From Toradol] naproxen Allergy Nausea & Verified 12/27/21 21:07 Vomiting & Diarrhea venom-honey bee Allergy Unknown Verified 12/27/21 21:07 [bee venom (honey bee)] Review of Systems ROS Statement: Those systems with pertinent positive or pertinent negative responses have been documented in the HPI. ROS Other: All systems not noted in ROS Statement are negative. Past Medical History Past Medical History: No Reported History Additional Past Medical History / Comment(s): chronic knee pain, back pain History of Any Multi-Drug Resistant Organisms: MRSA Date of last positivie culture/infection: 2008 MDRO Source:: thumb Past Surgical History: Appendectomy, Back Surgery, Orthopedic Surgery Additional Past Surgical History / Comment(s): l4-5 fusion march 2020, carpel tunnnel release, vascectomy, skin graft knee surg x4, hip surgery. bowel surgery Past Anesthesia/Blood Transfusion Reactions: No Reported Reaction Past Psychological History: Anxiety, PTSD Smoking Status: Former smoker Past Alcohol Use History: Occasional Past Drug Use History: None Reported - Past Family History Father Family Medical History: No Reported History Additional Family Medical History / Comment(s): Father is alive at age 61 was no major medical problems. Mother Family Medical History: No Reported History Additional Family Medical History / Comment(s): Mother is alive at age 56 with history of spinal surgeries and neurological disorders. Patient's troponin is and one sister with no major medical problems. Patient has 1 son and 1 daughter with no major medical problems. General Exam - General Exam Comments Initial Comments: Patient in minimal distress. Does not appear to be ill or toxic. Limitations: no limitations General appearance: alert, in no apparent distress Head exam: Present: atraumatic, normocephalic, normal inspection Eye exam: Present: normal appearance, PERRL, EOMI. Absent: scleral icterus, conjunctival injection, periorbital swelling ENT exam: Present: normal exam, normal oropharynx, mucous membranes moist, TM's normal bilaterally, normal external ear exam Neck exam: Present: normal inspection, full ROM. Absent: tenderness, meningismus, lymphadenopathy Respiratory exam: Present: normal lung sounds bilaterally. Absent: respiratory distress, wheezes, rales, rhonchi, stridor Cardiovascular Exam: Present: regular rate (Rate 80 beats per minute by auscultation and by radial pulse), normal rhythm, normal heart sounds. Absent: systolic murmur, diastolic murmur, rubs, gallop, clicks GI/Abdominal exam: Present: soft, normal bowel sounds. Absent: distended, tenderness, guarding, rebound, rigid Extremities exam: Present: normal inspection, full ROM, normal capillary refill. Absent: tenderness, pedal edema, joint swelling, calf tenderness Back exam: Present: normal inspection, tenderness, paraspinal tenderness, other (Straight leg raise negative bilaterally). Absent: full ROM, CVA tenderness (R), CVA tenderness (L), muscle spasm, vertebral tenderness, rash noted Neurological exam: Present: alert, oriented X3, CN II-XII intact, normal gait. Absent: abnormal gait, motor sensory deficit Psychiatric exam: Present: normal affect, normal mood Skin exam: Present: warm, dry, intact, normal color. Absent: rash Course Vital Signs 01/01/22 22:05 Temperature 98 F Pulse Rate 109 H Respiratory 16 Rate Blood Pressure 125/79 O2 Sat by Pulse 99 Oximetry Medical Decision Making - Medical Decision Making Acute exacerbation chronic low back pain. No evidence of cauda equina syndrome. Patient told to return immediately if any such symptoms develop. Follow-up with the back specialist/neurosurgeon on Wednesday as planned. Patient has pain medication at home. Patient was told to return to the ER for any signs or symptoms worsen. Told to return immediately if any other problems arise. All questions answered. Treatment plan discussed. Patient in agreement Every effort has been made to ensure accuracy of this dictation. However, due to the limitations of electronic medical records and dictation devices, errors in charting still occur. Disposition Clinical Impression: Acute exacerbation of chronic low back pain Disposition: HOME SELF-CARE Condition: Stable Instructions (If sedation given, give patient instructions): Chronic Back Pain (DC) Additional Instructions: Follow-up with your neurosurgeon on Wednesday as planned. Follow-up with your regular physician as directed. Return to the ER immediately if any symptoms worsen, new symptoms arise, or any other problems develop. Is patient prescribed a controlled substance at d/c from ED?: No Referrals: Nik Paula MD [Primary Care Provider] - 1-2 days Time of Disposition: 23:58
== END 2022-01-02 00:33 | disposition home or self-care (01) ==
LOC: EC 21:27
DX: G89.29 Other chronic pain (principal); M54.50 Low back pain, unspecified; F41.9 Anxiety disorder, unspecified; Z87.891 Personal history of nicotine dependence; Z79.899 Other long term (current) drug therapy
CPT/HCPCS: 99283; 96372 ×2; J2270; J2360

== ENCOUNTER 2022-02-01 21:18 | Emergency (ER) | payer MEDICARE, OTHER ==
[2022-02-01 21:45] VITALS: TEMP 97.6
[2022-02-01] MEDS ORDERED: HYDROmorphone 1 MG/ML 1 ML SYRINGE IM STA (23:48)
[2022-02-01] MEDS ORDERED: ONDANSETRON ODT 4 MG TAB PO STA (23:48)
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
--- NOTE | 2022-02-02 00:31 | XR ---
EXAMINATION TYPE: XR lumbar spine 2 or 3V DATE OF EXAM: 02/02/2022 COMPARISON: 12/22/2021 HISTORY: Fall. Back pain TECHNIQUE: 3 views FINDINGS: Lumbar vertebrae are fairly normal alignment. There is posterior fusion surgery from L4 to S1. There is a few millimeter anterior subluxation of L4 in relation L5. There is no compression frac ture. There is disc prosthesis at L4-5. The sacroiliac joints are intact. IMPRESSION: There is a minimal L4-5 spondylolisthesis that is improved compared to previous exam. No fracture seen.
[2022-02-02 00:59] VITALS: BP 129/80; PULSE 76; RESP 20
== END 2022-02-02 01:09 | disposition home or self-care (01) ==
LOC: EC 21:18
DX: M54.59 Other low back pain (principal); G89.29 Other chronic pain; F41.9 Anxiety disorder, unspecified; F43.10 Post-traumatic stress disorder, unspecified; Z88.1 Allergy status to other antibiotic agents; Z88.5 Allergy status to narcotic agent; Z90.49 Acquired absence of other specified parts of digestive tract; Z87.891 Personal history of nicotine dependence; W17.89XA Other fall from one level to another, initial encounter
CPT/HCPCS: 99283; 96372; 72100; J1170

== ENCOUNTER 2022-02-07 21:43 | Emergency (ER) | payer MEDICARE ==
[2022-02-07 21:47] VITALS: TEMP 97.4
[2022-02-08] MEDS ORDERED: MAG HYDROX/AL HYDROX/SIMETH 30 ML, HYOSCYAMINE ELIXIR 10 ML, LIDOCAINE VISCOUS 2% 10 ML PO STA ×3 (00:55)
[2022-02-08] MEDS ORDERED: predniSONE 50 MG TAB PO STA (01:09)
[2022-02-08] MEDS ORDERED: ORPHENADRINE 30 MG/ML 2 ML VIAL IM STA (01:10)
[2022-02-08] MEDS ORDERED: HYDROmorphone 1 MG/ML 1 ML SYRINGE IM STA (01:10)
--- NOTE | 2022-02-08 01:17 | ED ---
General Adult HPI - General Chief complaint: Back Pain/Injury Stated complaint: Back pain Time Seen by Provider: 02/08/22 00:41 Source: patient, RN notes reviewed Mode of arrival: ambulatory Limitations: no limitations - History of Present Illness Initial comments: 41-year-old male presents to the emergency department for evaluation of exacerbation of chronic low back pain. Patient describes discomfort as a sharp, burning pain in his spine that radiates down to the left leg. Patient states pain began while ambulating this afternoon. Denies strenuous activity or injury. States he did speak with his neurosurgeon who recommended he be seen in the ER for pain management, then will see him in the office on Wednesday. Patient denies any loss of bowel or bladder control, urine retention, foot drop, or saddle anesthesia. - Related Data Home Medications Medication Instructions Recorded Confirmed EPINEPHrine (Auto Inject) [Epipen] 0.3 mg IM ONCE PRN 08/22/19 11/23/21 Gabapentin [Neurontin] 400 mg PO TID PRN 08/22/19 11/23/21 HYDROcodone/APAP 10-325MG [[place] 1 tab PO QID 08/22/19 11/23/21 10-325] PARoxetine HCL [Paxil] 60 mg PO DAILY 08/22/19 11/23/21 traZODone HCL 150 mg PO HS 10/09/20 11/23/21 Ibuprofen [Motrin] 800 mg PO Q8H PRN 11/23/21 11/23/21 Metoprolol Tartrate [Lopressor] 12.5 mg PO BID 11/23/21 11/23/21 hydrOXYzine pamoate [Vistaril] 25 mg PO HS 11/23/21 11/23/21 Previous Rx's Medication Instructions Recorded predniSONE 50 mg PO DAILY #4 tab 02/08/22 Allergies Allergy/AdvReac Type Severity Reaction Status Date / Time ketorolac tromethamine Allergy Rash/Hives Verified 02/07/22 21:45 [From Toradol] naproxen Allergy Nausea & Verified 02/07/22 21:45 Vomiting & Diarrhea venom-honey bee Allergy Unknown Verified 02/07/22 21:45 [bee venom (honey bee)] Review of Systems ROS Statement: Those systems with pertinent positive or pertinent negative responses have been documented in the HPI. ROS Other: All systems not noted in ROS Statement are negative. Past Medical History Past Medical History: No Reported History Additional Past Medical History / Comment(s): chronic knee pain, back pain History of Any Multi-Drug Resistant Organisms: MRSA Date of last positivie culture/infection: 2008 MDRO Source:: thumb Past Surgical History: Appendectomy, Back Surgery, Orthopedic Surgery Additional Past Surgical History / Comment(s): l4-5 fusion march 2020, carpel tunnnel release, vascectomy, skin graft knee surg x4, hip surgery. bowel surgery Past Anesthesia/Blood Transfusion Reactions: No Reported Reaction Past Psychological History: Anxiety, PTSD Smoking Status: Former smoker Past Alcohol Use History: Occasional Past Drug Use History: None Reported - Past Family History Father Family Medical History: No Reported History Additional Family Medical History / Comment(s): Father is alive at age 61 was no major medical problems. Mother Family Medical History: No Reported History Additional Family Medical History / Comment(s): Mother is alive at age 56 with history of spinal surgeries and neurological disorders. Patient's troponin is and one sister with no major medical problems. Patient has 1 son and 1 daughter with no major medical problems. General Exam Limitations: no limitations (Well-developed, well-nourished female in no acute distress. Initial temperature 97.4, pulse 92, respiration 16, blood pressure 154/97, pulse ox 100% on room air.) General appearance: alert, in no apparent distress Neck exam: Present: normal inspection. Absent: tenderness, meningismus, lymphadenopathy Respiratory exam: Present: normal lung sounds bilaterally. Absent: respiratory distress, wheezes, rales, rhonchi, stridor Cardiovascular Exam: Present: regular rate, normal rhythm, normal heart sounds. Absent: systolic murmur, diastolic murmur, rubs, gallop, clicks GI/Abdominal exam: Present: soft, normal bowel sounds. Absent: distended, tenderness, guarding, rebound, rigid Back exam: Present: vertebral tenderness (Tenderness upon palpation of the lumbar spine along incision scar. ), other (Ambulating without difficulty. Wearing back brace. Negative straight leg raise. Continues to describe burning pain/discomfort.) Expanded Back exam: Absent: saddle anesthesia Back exam: Negative Straight Leg Raising: Left, Right Neurological exam: Present: alert, oriented X3 Psychiatric exam: Present: normal affect, normal mood Course Vital Signs 02/07/22 21:45 Temperature 97.4 F L Pulse Rate 92 Respiratory 16 Rate Blood Pressure 154/97 O2 Sat by Pulse 100 Oximetry Medical Decision Making - Medical Decision Making 41-year-old male with a past medical history of lumbar spinal fusion surgery presents to the emergency department for evaluation of low back pain. Exam, patient is well-appearing and in no acute distress. He is able to ambulate without difficulty. The pain he describes is radicular in nature as it is a burning pain that radiates down the left leg. He did not sustain any injury or trauma associated with the onset of this discomfort. No bowel or bladder changes, foot drop, or saddle anesthesia. States he is scheduled to see his neurosurgeon on Wednesday for follow-up. Patient is given Dilaudid, Norflex, and prednisone. He will be discharged home on a 5 day course of oral steroids. Instructed to follow up with his neurosurgeon as scheduled. Return parameters discussed in detail. Patient verbalizes understanding and agrees with this plan. Attending: Jf. Disposition Clinical Impression: Low back pain potentially associated with radiculopathy Disposition: HOME SELF-CARE Condition: Stable Instructions (If sedation given, give patient instructions): Lumbar Radiculopathy (ED) Additional Instructions: Continue taking your home medications as directed. Take the steroid once daily avoiding excessive sugar intake. Gentle stretching and range of motion exercises to maintain mobility. Follow-up with your neurosurgeon as scheduled on Wednesday. Return to the emergency department with any new, worsening, or concerning symptoms. Prescriptions: predniSONE 50 mg PO DAILY #4 tab Is patient prescribed a controlled substance at d/c from ED?: No Referrals: Nik Paula MD [Primary Care Provider] - 1-2 days Time of Disposition: 01:43
[2022-02-08 01:40] VITALS: RESP 18
[2022-02-08 02:23] VITALS: BP 141/78; PULSE 75
== END 2022-02-08 02:23 | disposition home or self-care (01) ==
LOC: EC 21:43
DX: M54.16 Radiculopathy, lumbar region (principal); M54.50 Low back pain, unspecified; Z87.891 Personal history of nicotine dependence; Z88.6 Allergy status to analgesic agent; Z91.048 Other nonmedicinal substance allergy status
CPT/HCPCS: 99283; 96372; J2360; J1170; J7512

== ENCOUNTER 2022-03-03 20:23 | Emergency (ER) | payer MEDICARE ==
[2022-03-03 21:06] VITALS: BP 131/89; PULSE 102; RESP 14; TEMP 97.6
[2022-03-03] MEDS ORDERED: DIAZEPAM 5 MG/ML 2 ML INJ IM STA (22:38)
--- NOTE | 2022-03-03 22:42 | ED ---
General Adult HPI - General Chief complaint: Back Pain/Injury Stated complaint: Fall Back Pain Time Seen by Provider: 03/03/22 22:30 Source: patient, RN notes reviewed, old records reviewed Mode of arrival: ambulatory Limitations: no limitations - History of Present Illness Initial comments: This is a pleasant 41-year-old male, sitting on cart eating crackers complaining of low back pain. Patient states that he tripped over his dog at home today falling on his left side. He states he had back fusion surgery in December at [facility] and his doctor told him if he has any falls he should have an x-ray done to make sure the hardware is intact. Patient denies any numbness and tingling in the extremities, he is able to ambulate. He denies any other injuries. -: hour(s) (3) Location: back (LS spine) Radiation: non-radiation Severity scale (1-10): 8 Quality: constant Consistency: constant Improves with: rest Worsens with: movement Associated Symptoms: denies other symptoms - Related Data Home Medications Medication Instructions Recorded Confirmed EPINEPHrine (Auto Inject) [Epipen] 0.3 mg IM ONCE PRN 08/22/19 03/03/22 Gabapentin [Neurontin] 400 mg PO TID PRN 08/22/19 03/03/22 PARoxetine HCL [Paxil] 60 mg PO DAILY 08/22/19 03/03/22 traZODone HCL 150 mg PO HS 10/09/20 03/03/22 Ibuprofen [Motrin] 800 mg PO Q8H PRN 11/23/21 03/03/22 Metoprolol Tartrate [Lopressor] 12.5 mg PO BID 11/23/21 03/03/22 hydrOXYzine pamoate [Vistaril] 25 mg PO HS 11/23/21 03/03/22 Allergies Allergy/AdvReac Type Severity Reaction Status Date / Time ketorolac tromethamine Allergy Rash/Hives/Swelling Verified 03/03/22 23:19 [From Toradol] at injection site venom-honey bee Allergy Anaphylaxis Verified 03/03/22 23:19 [bee venom (honey bee)] naproxen AdvReac Nausea & Verified 03/03/22 23:19 Vomiting & Diarrhea Review of Systems ROS Statement: Those systems with pertinent positive or pertinent negative responses have been documented in the HPI. ROS Other: All systems not noted in ROS Statement are negative. Past Medical History Past Medical History: No Reported History Additional Past Medical History / Comment(s): chronic knee pain, back pain History of Any Multi-Drug Resistant Organisms: MRSA Date of last positivie culture/infection: 2008 MDRO Source:: thumb Past Surgical History: Appendectomy, Back Surgery, Orthopedic Surgery Additional Past Surgical History / Comment(s): l4-5 fusion march 2020, carpel tunnnel release, vascectomy, skin graft knee surg x4, hip surgery. bowel surgery Past Anesthesia/Blood Transfusion Reactions: No Reported Reaction Past Psychological History: Anxiety, PTSD Smoking Status: Former smoker Past Alcohol Use History: Occasional Past Drug Use History: None Reported - Past Family History Father Family Medical History: No Reported History Additional Family Medical History / Comment(s): Father is alive at age 61 was no major medical problems. Mother Family Medical History: No Reported History Additional Family Medical History / Comment(s): Mother is alive at age 56 with history of spinal surgeries and neurological disorders. Patient's troponin is and one sister with no major medical problems. Patient has 1 son and 1 daughter with no major medical problems. General Exam Limitations: no limitations General appearance: alert, in no apparent distress Neck exam: Present: full ROM. Absent: meningismus Respiratory exam: Present: normal lung sounds bilaterally. Absent: respiratory distress, accessory muscle use Cardiovascular Exam: Present: tachycardia, normal heart sounds GI/Abdominal exam: Present: soft. Absent: distended, tenderness Extremities exam: Present: full ROM Back exam: Present: normal inspection, tenderness (LS-spine), paraspinal tenderness (LS-spine). Absent: CVA tenderness (R), CVA tenderness (L), muscle spasm, rash noted Expanded Back exam: Absent: saddle anesthesia Neurological exam: Present: alert, oriented X3, normal gait Psychiatric exam: Present: normal affect, normal mood Skin exam: Present: warm, dry, normal color. Absent: cyanosis, diaphoretic Course Vital Signs 03/03/22 21:04 Temperature 97.6 F Pulse Rate 102 H Respiratory 14 Rate Blood Pressure 131/89 O2 Sat by Pulse 95 Oximetry Medical Decision Making - Medical Decision Making X-ray shows disc prosthesis at L4-L5 with posterior fusion surgery from L5 to S1. There is no evidence of compression fracture. There is a laminectomy L5. No acute abnormality of the lumbar spine. Patient was given 5 mg of Valium IM for pain. He was discharged home ambulatory and directed to follow up with his primary care doctor. Disposition Clinical Impression: Back pain Disposition: HOME SELF-CARE Condition: Good Instructions (If sedation given, give patient instructions): Acute Low Back Pain (ED) Additional Instructions: Follow-up with the primary care doctor this week. Continue taking Tylenol and or Motrin as needed for any pain. Return to the emergency room with any new or concerning symptoms. Is patient prescribed a controlled substance at d/c from ED?: No Referrals: Nik Paula MD [Primary Care Provider] - 1-2 days Time of Disposition: 23:36
--- NOTE | 2022-03-03 23:15 | XR ---
EXAMINATION TYPE: XR lumbar spine 2 or 3V DATE OF EXAM: 03/03/2022 COMPARISON: 02/02/2022 HISTORY: Fall. Pain TECHNIQUE: 3 views FINDINGS: The lumbar vertebrae have normal alignment. There is disc prosthesis at L4-5. There is post erior fusion surgery from L5 to S1. No compression fracture. There is laminectomy L5. There are 6 lum bar type vertebra. IMPRESSION: No acute abnormality of the lumbar spine. No change. No fracture.
== END 2022-03-04 00:02 | disposition home or self-care (01) ==
LOC: EC 20:23
DX: M54.50 Low back pain, unspecified (principal); F41.9 Anxiety disorder, unspecified; F17.200 Nicotine dependence, unspecified, uncomplicated; W18.09XA Striking against other object with subsequent fall, initial encounter
CPT/HCPCS: 96372 ×2; 99283 ×2; 72100; J3360

== ENCOUNTER 2022-03-20 23:19 | Emergency (ER) | payer MEDICARE ==
[2022-03-20 23:25] VITALS: BP 148/92; PULSE 107; RESP 20; TEMP 98
[2022-03-21] MEDS ORDERED: ACET/COD 300 MG/30 MG STARTER PACK 6 TAB BTL PO STA (03:35)
[2022-03-21] MEDS ORDERED: AMOXIC-POT CLAV 875MG STARTER PACK 2 TAB BTL PO STA (03:35)
[2022-03-21] MEDS ORDERED: Acetaminophen-Codeine 300-30mg TAB PO STA (03:35)
[2022-03-21] MEDS ORDERED: MUPIROCIN 2% OINT 22 GM TUBE TOPICAL STA (03:35)
[2022-03-21] MEDS ORDERED: AMOXIC-POT CLAV 875-125MG 1 EACH TAB PO STA (03:36)
--- NOTE | 2022-03-21 03:40 | ED ---
Recheck HPI - General Chief Complaint: Burn/Smoke Inhalation Stated Complaint: Burn on Left upper arm Time Seen by Provider: 03/21/22 03:34 Source: patient, RN notes reviewed, old records reviewed Mode of arrival: ambulatory Limitations: no limitations - History of Present Illness Initial Comments: This is a 41-year-old male to the emergency department today. Patient presents today for evaluation regards to recheck of wound. Patient states he burned himself about a week ago medialmost 2 weeks ago at this point and noticed that the burn itself and area around it was becoming more red and more tender and concern for infection. Patient has not any fevers and no other real significant complaints MD Complaint: wound re-check -: week(s) Initial Visit For: cellulitis Returns Today for: persistent/worsening pain related to initial visit Symptoms Since Prior Visit: worsening pain Associated Symptoms: none Treatments Prior to Arrival: dressings - Related Data Home Medications Medication Instructions Recorded Confirmed EPINEPHrine (Auto Inject) [Epipen] 0.3 mg IM ONCE PRN 08/22/19 03/03/22 Gabapentin [Neurontin] 400 mg PO TID PRN 08/22/19 03/03/22 PARoxetine HCL [Paxil] 60 mg PO DAILY 08/22/19 03/03/22 traZODone HCL 150 mg PO HS 10/09/20 03/03/22 Ibuprofen [Motrin] 800 mg PO Q8H PRN 11/23/21 03/03/22 Metoprolol Tartrate [Lopressor] 12.5 mg PO BID 11/23/21 03/03/22 hydrOXYzine pamoate [Vistaril] 25 mg PO HS 11/23/21 03/03/22 Previous Rx's Medication Instructions Recorded Amoxic-Pot Clav 875-125Mg 1 tab PO Q12HR #14 tablet 03/21/22 [Augmentin 875-125] Allergies Allergy/AdvReac Type Severity Reaction Status Date / Time ketorolac tromethamine Allergy Rash/Hives/Swelling Verified 03/20/22 23:24 [From Toradol] at injection site venom-honey bee Allergy Anaphylaxis Verified 03/20/22 23:24 [bee venom (honey bee)] naproxen AdvReac Nausea & Verified 03/20/22 23:24 Vomiting & Diarrhea Review of Systems ROS Statement: Those systems with pertinent positive or pertinent negative responses have been documented in the HPI. ROS Other: All systems not noted in ROS Statement are negative. Past Medical History Past Medical History: No Reported History Additional Past Medical History / Comment(s): chronic knee pain, back pain History of Any Multi-Drug Resistant Organisms: MRSA Date of last positivie culture/infection: 2008 MDRO Source:: thumb Past Surgical History: Appendectomy, Back Surgery, Orthopedic Surgery Additional Past Surgical History / Comment(s): l4-5 fusion march 2020, carpel tunnnel release, vascectomy, skin graft knee surg x4, hip surgery. bowel surgery Past Anesthesia/Blood Transfusion Reactions: No Reported Reaction Past Psychological History: Anxiety, PTSD Smoking Status: Former smoker Past Alcohol Use History: Occasional Past Drug Use History: None Reported - Past Family History Father Family Medical History: No Reported History Additional Family Medical History / Comment(s): Father is alive at age 61 was no major medical problems. Mother Family Medical History: No Reported History Additional Family Medical History / Comment(s): Mother is alive at age 56 with history of spinal surgeries and neurological disorders. Patient's troponin is and one sister with no major medical problems. Patient has 1 son and 1 daughter with no major medical problems. General Exam - General Exam Comments Initial Comments: patient does have area of second-degree burn to left shoulder, looks to be h ealing well with mild surrounding erythema and tenderness, mild cellulitis Limitations: no limitations General appearance: alert, in no apparent distress Head exam: Present: atraumatic, normocephalic, normal inspection Eye exam: Present: normal appearance, PERRL, EOMI. Absent: scleral icterus, conjunctival injection, periorbital swelling ENT exam: Present: normal exam, mucous membranes moist Neck exam: Present: normal inspection. Absent: tenderness, meningismus, lymphadenopathy Respiratory exam: Present: normal lung sounds bilaterally. Absent: respiratory distress, wheezes, rales, rhonchi, stridor Cardiovascular Exam: Present: normal rhythm, tachycardia, normal heart sounds. Absent: systolic murmur, diastolic murmur, rubs, gallop, clicks GI/Abdominal exam: Present: soft, normal bowel sounds. Absent: distended, tenderness, guarding, rebound, rigid Extremities exam: Present: normal inspection, full ROM, normal capillary refill. Absent: tenderness, pedal edema, joint swelling, calf tenderness Back exam: Present: normal inspection Neurological exam: Present: alert, oriented X3, CN II-XII intact Psychiatric exam: Present: normal affect, normal mood Skin exam: Present: warm, dry, intact, normal color. Absent: rash Course Vital Signs 03/20/22 23:22 Temperature 98 F Pulse Rate 107 H Respiratory 20 Rate Blood Pressure 148/92 O2 Sat by Pulse 95 Oximetry - Reevaluation(s) Reevaluation #1: 03/21/22 03:38 medical records reviewed Reevaluation #2: 03/21/22 03:38 symptoms have been improved Reevaluation #3: 03/21/22 03:39 patient informed results and questions have been answered Medical Decision Making - Medical Decision Making 41 male to the emergency departmentF for evaluation patient given pain control will control here in the ER.wound care instructions antibiotics and patient can be discharged home Disposition Clinical Impression: Cellulitis, Burn of shoulder, left, second degree Disposition: HOME SELF-CARE Condition: Good Instructions (If sedation given, give patient instructions): Acute Wound Care (ED) Prescriptions: Amoxic-Pot Clav 875-125Mg [Augmentin 875-125] 1 tab PO Q12HR #14 tablet Is patient prescribed a controlled substance at d/c from ED?: No Referrals: Nik Paula MD [Primary Care Provider] - 1-2 days
== END 2022-03-21 04:14 | disposition home or self-care (01) ==
LOC: EC 23:19
DX: T22.252A Burn of second degree of left shoulder, initial encounter (principal); L03.114 Cellulitis of left upper limb; Z87.891 Personal history of nicotine dependence; Z91.030 Bee allergy status; Z88.6 Allergy status to analgesic agent
CPT/HCPCS: 99283

== ENCOUNTER 2022-04-04 22:37 | Emergency (ER) | payer MEDICARE ==
[2022-04-04 23:20] VITALS: BP 150/93; PULSE 100; RESP 20; TEMP 97.1
[2022-04-05] MEDS ORDERED: ACET/COD 300 MG/30 MG STARTER PACK 6 TAB BTL PO STA (00:13)
[2022-04-05] MEDS ORDERED: Acetaminophen-Codeine 300-30mg TAB PO STA (00:13)
--- NOTE | 2022-04-05 00:16 | ED ---
ENT HPI - General Chief complaint: Dental/Oral Stated complaint: dental pain Time Seen by Provider: 04/05/22 00:12 Source: patient, RN notes reviewed, old records reviewed Mode of arrival: ambulatory Limitations: no limitations - History of Present Illness Initial comments: This is a 41-year-old male well-known DF for evaluation. Patient coming in with dental pain this pain all began because patient recently had multiple teeth extracted secondary to dental disease. Patient has no other complaints of symptoms aside from the severe pain. No fevers able to drink without difficulty opening his mouth MD complaint: tooth pain, other (Recent dental surgery) -: days(s) Location: tooth # Severity: moderate Severity scale (1-10): 6 Quality: sharp Consistency: constant Improves with: pressure Worsens with: none Context- Dental: poor dental care Associated Symptoms: gum swelling, toothache - Related Data Home Medications Medication Instructions Recorded Confirmed EPINEPHrine (Auto Inject) [Epipen] 0.3 mg IM ONCE PRN 08/22/19 03/03/22 Gabapentin [Neurontin] 400 mg PO TID PRN 08/22/19 03/03/22 PARoxetine HCL [Paxil] 60 mg PO DAILY 08/22/19 03/03/22 traZODone HCL 150 mg PO HS 10/09/20 03/03/22 Ibuprofen [Motrin] 800 mg PO Q8H PRN 11/23/21 03/03/22 Metoprolol Tartrate [Lopressor] 12.5 mg PO BID 11/23/21 03/03/22 hydrOXYzine pamoate [Vistaril] 25 mg PO HS 11/23/21 03/03/22 Previous Rx's Medication Instructions Recorded Amoxic-Pot Clav 875-125Mg 1 tab PO Q12HR #14 tablet 03/21/22 [Augmentin 875-125] Baclofen 10 mg PO TID PRN #24 tab 03/25/22 Allergies Allergy/AdvReac Type Severity Reaction Status Date / Time ketorolac tromethamine Allergy Rash/Hives/Swelling Verified 04/04/22 23:20 [From Toradol] at injection site venom-honey bee Allergy Anaphylaxis Verified 04/04/22 23:20 [bee venom (honey bee)] naproxen AdvReac Nausea & Verified 04/04/22 23:20 Vomiting & Diarrhea Review of Systems ROS Statement: Those systems with pertinent positive or pertinent negative responses have been documented in the HPI. ROS Other: All systems not noted in ROS Statement are negative. Past Medical History Past Medical History: No Reported History Additional Past Medical History / Comment(s): chronic knee pain, back pain History of Any Multi-Drug Resistant Organisms: MRSA Date of last positivie culture/infection: 2008 MDRO Source:: thumb Past Surgical History: Appendectomy, Back Surgery, Orthopedic Surgery Additional Past Surgical History / Comment(s): l4-5 fusion march 2020, carpel tunnnel release, vascectomy, skin graft knee surg x4, hip surgery. bowel surgery Past Anesthesia/Blood Transfusion Reactions: No Reported Reaction Past Psychological History: Anxiety, PTSD Smoking Status: Former smoker Past Alcohol Use History: Occasional Past Drug Use History: None Reported - Past Family History Father Family Medical History: No Reported History Additional Family Medical History / Comment(s): Father is alive at age 61 was no major medical problems. Mother Family Medical History: No Reported History Additional Family Medical History / Comment(s): Mother is alive at age 56 with history of spinal surgeries and neurological disorders. Patient's troponin is and one sister with no major medical problems. Patient has 1 son and 1 daughter with no major medical problems. General Exam Limitations: no limitations General appearance: alert, in no apparent distress Head exam: Present: atraumatic, normocephalic, normal inspection Eye exam: Present: normal appearance, PERRL, EOMI. Absent: scleral icterus, conjunctival injection, periorbital swelling ENT exam: Present: normal exam, mucous membranes moist Neck exam: Present: normal inspection. Absent: tenderness, meningismus, lymphadenopathy Respiratory exam: Present: normal lung sounds bilaterally. Absent: respiratory distress, wheezes, rales, rhonchi, stridor Cardiovascular Exam: Present: regular rate, normal rhythm, normal heart sounds. Absent: systolic murmur, diastolic murmur, rubs, gallop, clicks GI/Abdominal exam: Present: soft, normal bowel sounds. Absent: distended, tenderness, guarding, rebound, rigid Extremities exam: Present: normal inspection, full ROM, normal capillary refill. Absent: tenderness, pedal edema, joint swelling, calf tenderness Back exam: Present: normal inspection Neurological exam: Present: alert, oriented X3, CN II-XII intact Psychiatric exam: Present: normal affect, normal mood Skin exam: Present: warm, dry, intact, normal color. Absent: rash Course Vital Signs 04/04/22 23:17 Temperature 97.1 F L Pulse Rate 100 Respiratory 20 Rate Blood Pressure 150/93 O2 Sat by Pulse 96 Oximetry - Reevaluation(s) Reevaluation #1: 04/05/22 00:15 Medical record is reviewed Reevaluation #2: 04/05/22 00:15 Patient informed of results and questions are answered Reevaluation #3: 04/05/22 00:15 Patient does have pain control Medical Decision Making - Medical Decision Making 41 male to the emergency department for acute on chronic dental pain pain currently well-controlled patient can be discharged Disposition Clinical Impression: Dental abscess, Dental caries Narrative: Recent Dental Surgery Disposition: HOME SELF-CARE Condition: Good Instructions (If sedation given, give patient instructions): Toothache (ED) Is patient prescribed a controlled substance at d/c from ED?: No Referrals: Nik Paula MD [Primary Care Provider] - 1-2 days
[2022-04-05] MEDS ORDERED: HYDROmorphone 1 MG/ML 1 ML SYRINGE IM STA (00:23)
== END 2022-04-05 00:29 | disposition home or self-care (01) ==
LOC: EC 22:37
DX: K04.7 Periapical abscess without sinus (principal); K02.9 Dental caries, unspecified; Z87.891 Personal history of nicotine dependence; Z88.6 Allergy status to analgesic agent; F41.9 Anxiety disorder, unspecified; Z79.899 Other long term (current) drug therapy
CPT/HCPCS: 99282; 96372; J1170

== ENCOUNTER 2022-04-12 02:02 | Emergency (ER) | payer MEDICARE ==
[2022-04-12 02:21] VITALS: BP 127/83; PULSE 99; RESP 18; TEMP 98.1
[2022-04-12] MEDS ORDERED: Acetaminophen-Codeine 300-30mg TAB PO STA (02:39)
[2022-04-12] MEDS ORDERED: ACET/COD 300 MG/30 MG STARTER PACK 6 TAB BTL PO STA (02:39)
--- NOTE | 2022-04-12 02:41 | ED ---
Recheck HPI - General Chief Complaint: Back Pain/Injury Stated Complaint: Back pain Time Seen by Provider: 04/12/22 02:24 Source: patient, RN notes reviewed, old records reviewed Mode of arrival: ambulatory Limitations: no limitations - History of Present Illness Initial Comments: This is a 41-year-old male presented today for evaluation of back pain history of back pain today daily chronic back pain states he was fishing and developed increasing back pain yesterday low recent was cleared after his chronic back pain cleared of wearing his brace. No specific trauma no loss of bowel or bladder no neurological complaints chest pain MD Complaint: medication refill request -: hour(s) Returns Today for: persistent/worsening pain related to initial visit Symptoms Since Prior Visit: worsening pain Context: ran out of medication Treatments Prior to Arrival: Given Pain Meds on - Related Data Home Medications Medication Instructions Recorded Confirmed EPINEPHrine (Auto Inject) [Epipen] 0.3 mg IM ONCE PRN 08/22/19 03/03/22 Gabapentin [Neurontin] 400 mg PO TID PRN 08/22/19 03/03/22 PARoxetine HCL [Paxil] 60 mg PO DAILY 08/22/19 03/03/22 traZODone HCL 150 mg PO HS 10/09/20 03/03/22 Ibuprofen [Motrin] 800 mg PO Q8H PRN 11/23/21 03/03/22 Metoprolol Tartrate [Lopressor] 12.5 mg PO BID 11/23/21 03/03/22 hydrOXYzine pamoate [Vistaril] 25 mg PO HS 11/23/21 03/03/22 Previous Rx's Medication Instructions Recorded Amoxic-Pot Clav 875-125Mg 1 tab PO Q12HR #14 tablet 03/21/22 [Augmentin 875-125] Baclofen 10 mg PO TID PRN #24 tab 03/25/22 Allergies Allergy/AdvReac Type Severity Reaction Status Date / Time ketorolac tromethamine Allergy Rash/Hives/Swelling Verified 04/12/22 02:21 [From Toradol] at injection site venom-honey bee Allergy Anaphylaxis Verified 04/12/22 02:21 [bee venom (honey bee)] naproxen AdvReac Nausea & Verified 04/12/22 02:21 Vomiting & Diarrhea Review of Systems ROS Statement: Those systems with pertinent positive or pertinent negative responses have been documented in the HPI. ROS Other: All systems not noted in ROS Statement are negative. Past Medical History Past Medical History: No Reported History Additional Past Medical History / Comment(s): chronic knee pain, back pain History of Any Multi-Drug Resistant Organisms: MRSA Date of last positivie culture/infection: 2008 MDRO Source:: thumb Past Surgical History: Appendectomy, Back Surgery, Orthopedic Surgery Additional Past Surgical History / Comment(s): l4-5 fusion march 2020, carpel tunnnel release, vascectomy, skin graft knee surg x4, hip surgery. bowel surgery Past Anesthesia/Blood Transfusion Reactions: No Reported Reaction Past Psychological History: Anxiety, PTSD Smoking Status: Former smoker Past Alcohol Use History: Occasional Past Drug Use History: None Reported - Past Family History Father Family Medical History: No Reported History Additional Family Medical History / Comment(s): Father is alive at age 61 was no major medical problems. Mother Family Medical History: No Reported History Additional Family Medical History / Comment(s): Mother is alive at age 56 with history of spinal surgeries and neurological disorders. Patient's troponin is and one sister with no major medical problems. Patient has 1 son and 1 daughter with no major medical problems. General Exam Limitations: no limitations General appearance: alert, in no apparent distress Head exam: Present: atraumatic, normocephalic, normal inspection Eye exam: Present: normal appearance, PERRL, EOMI. Absent: scleral icterus, conjunctival injection, periorbital swelling ENT exam: Present: normal exam, mucous membranes moist Neck exam: Present: normal inspection. Absent: tenderness, meningismus, lymphadenopathy Respiratory exam: Present: normal lung sounds bilaterally. Absent: respiratory distress, wheezes, rales, rhonchi, stridor Cardiovascular Exam: Present: regular rate, normal rhythm, normal heart sounds. Absent: systolic murmur, diastolic murmur, rubs, gallop, clicks GI/Abdominal exam: Present: soft, normal bowel sounds. Absent: distended, tenderness, guarding, rebound, rigid Extremities exam: Present: normal inspection, full ROM, normal capillary refill. Absent: tenderness, pedal edema, joint swelling, calf tenderness Back exam: Present: normal inspection Neurological exam: Present: alert, oriented X3, CN II-XII intact Psychiatric exam: Present: normal affect, normal mood Skin exam: Present: warm, dry, intact, normal color. Absent: rash Course Vital Signs 04/12/22 02:15 Temperature 98.1 F Pulse Rate 99 Respiratory 18 Rate Blood Pressure 127/83 O2 Sat by Pulse 97 Oximetry - Reevaluation(s) Reevaluation #1: 04/12/22 02:40 Medical record is reviewed Reevaluation #2: 04/12/22 02:40 Patient informed of results and questions are answered 04/12/22 02:40 Patient has pain control Reevaluation #3: 04/12/22 02:40 Patient feeling improved currently is okay for discharge home Medical Decision Making - Medical Decision Making 41 male with acute on chronic back pain. Patient here for medication refill., Can be discharged home able to ambulate without difficulty Disposition Clinical Impression: Chronic low back pain, Strain of lumbar region, Mid back pain Disposition: HOME SELF-CARE Condition: Fair Instructions (If sedation given, give patient instructions): Acute Low Back Pain (ED) Is patient prescribed a controlled substance at d/c from ED?: No Referrals: Nik Paula MD [Primary Care Provider] - 1-2 days Time of Disposition: 02:50
== END 2022-04-12 02:56 | disposition home or self-care (01) ==
LOC: EC 02:02
DX: S39.012A Strain of muscle, fascia and tendon of lower back, initial encounter (principal); G89.29 Other chronic pain; M54.6 Pain in thoracic spine; F41.9 Anxiety disorder, unspecified; Z87.891 Personal history of nicotine dependence; Z79.899 Other long term (current) drug therapy; Z88.6 Allergy status to analgesic agent; X58.XXXA Exposure to other specified factors, initial encounter
CPT/HCPCS: 99282

== ENCOUNTER 2022-04-25 22:42 | Emergency (ER) | payer MEDICARE ==
[2022-04-25 22:52] VITALS: BP 147/93; PULSE 91; RESP 18; TEMP 97.8
--- NOTE | 2022-04-25 22:55 | ED ---
General Adult HPI - History of Present Illness -: hour(s) Location: left, lower extremity Radiation: non-radiation Quality: burning Consistency: constant Improves with: none Worsens with: none Treatments Prior to Arrival: other (EpiPen *3, Benadryl) <AcerosalindJamie - Last Filed: 04/26/22 01:08> - General Source: patient, RN notes reviewed Mode of arrival: ambulatory Limitations: no limitations <Yanique Peters - Last Filed: 04/27/22 21:45> - General Chief complaint: Allergic Reaction Stated complaint: Hornet stings, pain in throat - History of Present Illness Initial comments: 41-year-old male presents to the emergency department for evaluation of multiple bee stings. Patient state he was stung 7 times under his shorts. Reports using three epi-pens within the hour prior to arrival. States he feels miserable, but denies shortness of breath, difficulty breathing, or chest pain. Lung sounds are clear to auscultation upon exam. Vital signs are stable. (Yanique Peters) - Related Data Home Medications Medication Instructions Recorded Confirmed EPINEPHrine (Auto Inject) [Epipen] 0.3 mg IM ONCE PRN 08/22/19 03/03/22 Gabapentin [Neurontin] 400 mg PO TID PRN 08/22/19 03/03/22 PARoxetine HCL [Paxil] 60 mg PO DAILY 08/22/19 03/03/22 traZODone HCL 150 mg PO HS 10/09/20 03/03/22 Ibuprofen [Motrin] 800 mg PO Q8H PRN 11/23/21 03/03/22 Metoprolol Tartrate [Lopressor] 12.5 mg PO BID 11/23/21 03/03/22 hydrOXYzine pamoate [Vistaril] 25 mg PO HS 11/23/21 03/03/22 Previous Rx's Medication Instructions Recorded Amoxic-Pot Clav 875-125Mg 1 tab PO Q12HR #14 tablet 03/21/22 [Augmentin 875-125] Baclofen 10 mg PO TID PRN #24 tab 03/25/22 Famotidine [Pepcid] 20 mg PO BID #14 tablet 04/26/22 diphenhydrAMINE [Benadryl] 50 mg PO QID #28 capsule 04/26/22 predniSONE 60 mg PO DAILY #30 tab 04/26/22 Allergies Allergy/AdvReac Type Severity Reaction Status Date / Time ketorolac tromethamine Allergy Rash/Hives/Swelling Verified 04/25/22 22:48 [From Toradol] at injection site venom-honey bee Allergy Anaphylaxis Verified 04/25/22 22:48 [bee venom (honey bee)] naproxen AdvReac Nausea & Verified 04/25/22 22:48 Vomiting & Diarrhea Review of Systems ROS Other: All systems not noted in ROS Statement are negative. Constitutional: Denies: fever, chills ENT: Reports: congestion. Denies: throat pain Respiratory: Denies: cough, dyspnea Cardiovascular: Denies: chest pain, palpitations, edema, syncope Gastrointestinal: Denies: abdominal pain, vomiting, diarrhea Skin: Reports: lesions (Multiple stings). Denies: rash Neurological: Denies: headache <Jamie Rhoades - Last Filed: 04/26/22 01:08> ROS Other: All systems not noted in ROS Statement are negative. <Yanique Peters - Last Filed: 04/27/22 21:45> ROS Statement: Those systems with pertinent positive or pertinent negative responses have been documented in the HPI. Past Medical History Past Medical History: No Reported History Additional Past Medical History / Comment(s): chronic knee pain, back pain History of Any Multi-Drug Resistant Organisms: MRSA Date of last positivie culture/infection: 2008 MDRO Source:: thumb Past Surgical History: Appendectomy, Back Surgery, Orthopedic Surgery Additional Past Surgical History / Comment(s): l4-5 fusion march 2020, carpel t unnnel release, vascectomy, skin graft knee surg x4, hip surgery. bowel surgery Past Anesthesia/Blood Transfusion Reactions: No Reported Reaction Past Psychological History: Anxiety, PTSD Smoking Status: Former smoker Past Alcohol Use History: Occasional Past Drug Use History: None Reported - Past Family History Father Family Medical History: No Reported History Additional Family Medical History / Comment(s): Father is alive at age 61 was no major medical problems. Mother Family Medical History: No Reported History Additional Family Medical History / Comment(s): Mother is alive at age 56 with history of spinal surgeries and neurological disorders. Patient's troponin is and one sister with no major medical problems. Patient has 1 son and 1 daughter with no major medical problems. <Yanique Peters - Last Filed: 04/27/22 21:45> General Exam General appearance: alert, in no apparent distress Head exam: Present: atraumatic, normocephalic Eye exam: Present: normal appearance Neck exam: Present: normal inspection Respiratory exam: Present: normal lung sounds bilaterally. Absent: respiratory distress, wheezes, rales, rhonchi, stridor, accessory muscle use Cardiovascular Exam: Present: regular rate, normal rhythm, normal heart sounds. Absent: systolic murmur, diastolic murmur, rubs, gallop GI/Abdominal exam: Present: soft. Absent: distended, tenderness, guarding, rebound, rigid, mass Extremities exam: Present: normal inspection, normal capillary refill. Absent: pedal edema, calf tenderness Back exam: Present: normal inspection. Absent: CVA tenderness (R), CVA tenderness (L) Neurological exam: Present: alert Skin exam: Present: warm, dry, intact, normal color. Absent: rash <Jamie Rhoades - Last Filed: 04/26/22 01:08> Limitations: no limitations <Yanique Peters - Last Filed: 04/27/22 21:45> Course <Yanique Peters - Last Filed: 04/27/22 21:45> Vital Signs 04/25/22 22:49 Temperature 97.8 F Pulse Rate 91 Respiratory 18 Rate Blood Pressure 147/93 - Reevaluation(s) Reevaluation #1: 04/25/22 23:00 Patient is examined in triage and is stable at this time. He will be seated in the waiting room pending room availability. (Yanique Peters) Disposition Is patient prescribed a controlled substance at d/c from ED?: No Time of Disposition: 01:05 <Jamie Rhoades - Last Filed: 04/26/22 01:08> <Yanique Peters - Last Filed: 04/27/22 21:45> Clinical Impression: Bee sting Disposition: HOME SELF-CARE Condition: Good Instructions (If sedation given, give patient instructions): Insect Bite or Sting (ED) Prescriptions: diphenhydrAMINE [Benadryl] 50 mg PO QID #28 capsule Famotidine [Pepcid] 20 mg PO BID #14 tablet predniSONE 60 mg PO DAILY #30 tab Referrals: Nik Paula MD [Primary Care Provider] - 1-2 days
[2022-04-25] MEDS ORDERED: diphenhydrAMINE 50 MG/ML 1 ML VIAL IVP STA (23:35)
[2022-04-25] MEDS ORDERED: methylPREDNISolone SOD SUCCI 125 MG/2 ML VIAL IV STA (23:35)
[2022-04-25] MEDS ORDERED: FAMOTIDINE 20 MG/2 ML VIAL IV STA (23:35)
[2022-04-25] MEDS ORDERED: SODIUM CHLORIDE 0.9% 500 ML 500 ML IV STA (23:36)
== END 2022-04-26 01:33 | disposition home or self-care (01) ==
LOC: EC 22:42
DX: T63.441A Toxic effect of venom of bees, accidental (unintentional), initial encounter (principal); F41.9 Anxiety disorder, unspecified; Z87.891 Personal history of nicotine dependence; Z79.899 Other long term (current) drug therapy
CPT/HCPCS: 99282; 96374; 96375 ×2; J1200; J2930

== ENCOUNTER 2022-04-27 21:32 | Emergency (ER) | payer MEDICARE ==
[2022-04-27 22:58] VITALS: BP 153/102; PULSE 95; RESP 18; TEMP 98.6
--- NOTE | 2022-04-28 03:32 | ED ---
Psych HPI - General Source: patient Mode of arrival: ambulatory <Sheri Cohn - Last Filed: 04/28/22 18:49> <Chi Wade - Last Filed: 04/28/22 21:39> - General Chief Complaint: Psychiatric Symptoms Stated Complaint: Mental Health Time Seen by Provider: 04/28/22 02:21 - History of Present Illness Initial Comments: Patient is a 41-year-old male presenting with chief complaint of mental health concerns. Patient is a and states that he suffers heavily from PTSD. Patient states that lately his PTSD symptoms have been increasing. Patient states that he has been thinking of a lot of "what is", including what if he h urt himself or took his own life. He denies any homicidal ideations. Patient is also complaining of chest pain. States it is substernal and pressure like, states his symptoms have been going on for several days.. States that at times it radiates up his neck. Denies any nausea, vomiting, diaphoresis, back pain, fever, chills, abdominal pain, weakness, numbness, tingling, vision or hearing changes, dizziness. (Sheri Cohn) - Related Data Home Medications Medication Instructions Recorded Confirmed EPINEPHrine (Auto Inject) [Epipen] 0.3 mg IM ONCE PRN 08/22/19 03/03/22 Gabapentin [Neurontin] 400 mg PO TID PRN 08/22/19 03/03/22 PARoxetine HCL [Paxil] 60 mg PO DAILY 08/22/19 03/03/22 traZODone HCL 150 mg PO HS 10/09/20 03/03/22 Ibuprofen [Motrin] 800 mg PO Q8H PRN 11/23/21 03/03/22 Metoprolol Tartrate [Lopressor] 12.5 mg PO BID 11/23/21 03/03/22 hydrOXYzine pamoate [Vistaril] 25 mg PO HS 11/23/21 03/03/22 Previous Rx's Medication Instructions Recorded Amoxic-Pot Clav 875-125Mg 1 tab PO Q12HR #14 tablet 03/21/22 [Augmentin 875-125] Baclofen 10 mg PO TID PRN #24 tab 03/25/22 Famotidine [Pepcid] 20 mg PO BID #14 tablet 04/26/22 diphenhydrAMINE [Benadryl] 50 mg PO QID #28 capsule 04/26/22 predniSONE 60 mg PO DAILY #30 tab 04/26/22 Allergies Allergy/AdvReac Type Severity Reaction Status Date / Time ketorolac tromethamine Allergy Rash/Hives/Swelling Verified 04/27/22 22:58 [From Toradol] at injection site venom-honey bee Allergy Anaphylaxis Verified 04/27/22 22:58 [bee venom (honey bee)] naproxen AdvReac Nausea & Verified 04/27/22 22:58 Vomiting & Diarrhea Review of Systems ROS Other: All systems not noted in ROS Statement are negative. <Sheri Cohn - Last Filed: 04/28/22 18:49> ROS Other: All systems not noted in ROS Statement are negative. <Chi Wade - Last Filed: 04/28/22 21:39> ROS Statement: Those systems with pertinent positive or pertinent negative responses have been documented in the HPI. Past Medical History Past Medical History: No Reported History Additional Past Medical History / Comment(s): chronic knee pain, back pain History of Any Multi-Drug Resistant Organisms: MRSA Date of last positivie culture/infection: 2008 MDRO Source:: thumb Past Surgical History: Appendectomy, Back Surgery, Orthopedic Surgery Additional Past Surgical History / Comment(s): l4-5 fusion march 2020, carpel tunnnel release, vascectomy, skin graft knee surg x4, hip surgery. bowel surgery Past Anesthesia/Blood Transfusion Reactions: No Reported Reaction Past Psychological History: Anxiety, Depression, PTSD Smoking Status: Former smoker Past Alcohol Use History: Occasional Past Drug Use History: None Reported - Past Family History Father Family Medical History: No Reported History Additional Family Medical History / Comment(s): Father is alive at age 61 was no major medical problems. Mother Family Medical History: No Reported History Additional Family Medical History / Comment(s): Mother is alive at age 56 with history of spinal surgeries and neurological disorders. Patient's troponin is and one sister with no major medical problems. Patient has 1 son and 1 daughter with no major medical problems. <Sheri Cohn - Last Filed: 04/28/22 18:49> General Exam Limitations: no limitations General appearance: alert, in no apparent distress Head exam: Present: atraumatic, normocephalic, normal inspection Eye exam: Present: normal appearance, EOMI. Absent: scleral icterus, periorbital swelling Neck exam: Present: normal inspection Respiratory exam: Present: normal lung sounds bilaterally. Absent: respiratory distress, wheezes, rales, rhonchi, stridor Cardiovascular Exam: Present: regular rate, normal rhythm, normal heart sounds. Absent: systolic murmur, diastolic murmur, rubs, gallop, clicks Extremities exam: Present: normal inspection Back exam: Present: normal inspection Neurological exam: Present: alert, oriented X3, CN II-XII intact Psychiatric exam: Present: normal affect, normal mood Skin exam: Present: warm, dry, intact, normal color. Absent: rash <Sheri Cohn - Last Filed: 04/28/22 18:49> Course <Chi Wade - Last Filed: 04/28/22 21:39> Vital Signs 04/27/22 22:55 Temperature 98.6 F Pulse Rate 95 Respiratory 18 Rate Blood Pressure 153/102 O2 Sat by Pulse 97 Oximetry - Reevaluation(s) Reevaluation #1: patient was made medically clear (Chi Wade) Medical Decision Making - Lab Data Result diagrams: 04/28/22 02:40 <Sheri Cohn - Last Filed: 04/28/22 18:49> - Lab Data Result diagrams: 04/28/22 02:40 <Chi Wade - Last Filed: 04/28/22 21:39> - Medical Decision Making Patient is a 41-year-old male presenting with suicidal ideation. Patient is a and suffers from PTSD. Patient admits to plans to harm himself. Patient denies any thoughts of harming others. Patient also admits to chest pain, substernal in location and pressure-like sensation, with radiation up the neck. Physical examination is unremarkable. EKG shows sinus rhythm with rate of 70, no ischemic changes. This case was turned over to my attending Dr. Wade at 0403. (Sheri Cohn) 41 male seen and evaluated by psych ok for discharge home (Chi Wade) - Lab Data Lab Results 04/28/22 04/28/22 04/28/22 Range/Units 02:40 02:40 02:40 WBC 9.8 (3.8-10.6) k/uL RBC 4.63 (4.30-5.90) m/uL Hgb 13.9 (13.0-17.5) gm/dL Hct 41.4 (39.0-53.0) % MCV 89.3 (80.0-100.0) fL MCH 29.9 (25.0-35.0) pg MCHC 33.5 (31.0-37.0) g/dL RDW 13.6 (11.5-15.5) % Plt Count 306 (150-450) k/uL MPV 7.6 Neutrophils % 44 % Lymphocytes % 46 % Monocytes % 5 % Eosinophils % 2 % Basophils % 2 % Neutrophils # 4.2 (1.3-7.7) k/uL Lymphocytes # 4.5 (1.0-4.8) k/uL Monocytes # 0.5 (0-1.0) k/uL Eosinophils # 0.2 (0-0.7) k/uL Basophils # 0.2 (0-0.2) k/uL Troponin I (0.000-0.034) ng/mL Urine Color Light Yellow Urine Appearance Clear (Clear) Urine pH 6.0 (5.0-8.0) Ur Specific [place] 1.015 (1.001-1.035) Urine Protein Negative (Negative) Urine Glucose (UA) Negative (Negative) Urine Ketones Negative (Negative) Urine Blood Negative (Negative) Urine Nitrite Negative (Negative) Urine Bilirubin Negative (Negative) Urine Urobilinogen <2.0 (<2.0) mg/dL Ur Leukocyte Esterase Negative (Negative) Salicylates <1.0 mg/dL Urine Opiates Screen Not Detected (NotDetected) Ur Oxycodone Screen Not Detected (NotDetected) Urine Methadone Screen Not Detected (NotDetected) Ur Propoxyphene Screen Not Detected (NotDetected) Acetaminophen <10.0 ug/mL Ur Barbiturates Screen Not Detected (NotDetected) U Tricyclic Antidepress Detected H (NotDetected) Ur Phencyclidine Scrn Not Detected (NotDetected) Ur Amphetamines Screen Not Detected (NotDetected) U Methamphetamines Scrn Not Detected (NotDetected) U Benzodiazepines Scrn Not Detected (NotDetected) Urine Cocaine Screen Not Detected (NotDetected) U Marijuana (THC) Screen Not Detected (NotDetected) Serum Alcohol <10 mg/dL 04/28/22 Range/Units 02:41 WBC (3.8-10.6) k/uL RBC (4.30-5.90) m/uL Hgb (13.0-17.5) gm/dL Hct (39.0-53.0) % MCV (80.0-100.0) fL MCH (25.0-35.0) pg MCHC (31.0-37.0) g/dL RDW (11.5-15.5) % Plt Count (150-450) k/uL MPV Neutrophils % % Lymphocytes % % Monocytes % % Eosinophils % % Basophils % % Neutrophils # (1.3-7.7) k/uL Lymphocytes # (1.0-4.8) k/uL Monocytes # (0-1.0) k/uL Eosinophils # (0-0.7) k/uL Basophils # (0-0.2) k/uL Troponin I <0.012 (0.000-0.034) ng/mL Urine Color Urine Appearance (Clear) Urine pH (5.0-8.0) Ur Specific [place] (1.001-1.035) Urine Protein (Negative) Urine Glucose (UA) (Negative) Urine Ketones (Negative) Urine Blood (Negative) Urine Nitrite (Negative) Urine Bilirubin (Negative) Urine Urobilinogen (<2.0) mg/dL Ur Leukocyte Esterase (Negative) Salicylates mg/dL Urine Opiates Screen (NotDetected) Ur Oxycodone Screen (NotDetected) Urine Methadone Screen (NotDetected) Ur Propoxyphene Screen (NotDetected) Acetaminophen ug/mL Ur Barbiturates Screen (NotDetected) U Tricyclic Antidepress (NotDetected) Ur Phencyclidine Scrn (NotDetected) Ur Amphetamines Screen (NotDetected) U Methamphetamines Scrn (NotDetected) U Benzodiazepines Scrn (NotDetected) Urine Cocaine Screen (NotDetected) U Marijuana (THC) Screen (NotDetected) Serum Alcohol mg/dL Disposition <Sheri Cohn Filed: 04/28/22 18:49> Is patient prescribed a controlled substance at d/c from ED?: No <Chi Wade - Last Filed: 04/28/22 21:39> Clinical Impression: Depression, Adjustment reaction of adult life Disposition: HOME SELF-CARE Condition: Fair Instructions (If sedation given, give patient instructions): Depression (ED) Referrals: Nik Paula MD [Primary Care Provider] - 1-2 days
[2022-04-28 03:37] LABS: Basophils # (A) 0.2 k/uL (0-0.2); Basophils % (A) 2 %; Eosinophils # (A) 0.2 k/uL (0-0.7); Eosinophils % (A) 2 %; HCT 41.4 % (39.0-53.0); HGB 13.9 gm/dL (13.0-17.5); Lymphocytes # (A) 4.5 k/uL (1.0-4.8); Lymphocytes % (A) 46 %; MCH 29.9 pg (25.0-35.0); MCHC 33.5 g/dL (31.0-37.0); MCV 89.3 fL (80.0-100.0); Mean Platelet Volume 7.6; Monocytes # (A) 0.5 k/uL (0-1.0); Monocytes % (A) 5 %; Neutrophils # (A) 4.2 k/uL (1.3-7.7); Neutrophils % (A) 44 %; Platelet Count 306 k/uL (150-450); RBC 4.63 m/uL (4.30-5.90); RDW 13.6 % (11.5-15.5); WBC 9.8 k/uL (3.8-10.6)
[2022-04-28 03:44] LABS: Appearance,Urine Clear (Clear); Bilirubin,Urine Negative (Negative); Blood,Urine Negative (Negative); Color,Urine Light Yellow; Glucose,Urine (UA) Negative (Negative); Ketones,Urine Negative (Negative); Leukocyte Esterase,Urine Negative (Negative); Nitrite,Urine Negative (Negative); Protein,Urine Negative (Negative); Specific Gravity,Urine 1.015 (1.001-1.035); Urobilinogen,Urine <2.0 mg/dL (<2.0)
[2022-04-28 03:50] LABS: Acetaminophen <10.0 ug/mL; Alcohol <10 mg/dL; Salicylate <1.0 mg/dL
[2022-04-28 04:09] LABS: Amphetamine Screen,Urine Not Detected (NotDetected); Barbiturate Screen,Urine Not Detected (NotDetected); Benzodiazepines Screen,Urine Not Detected (NotDetected); Cocaine Screen,Urine Not Detected (NotDetected); Methadone Screen, Urine Not Detected (NotDetected); Opiate Screen,Urine Not Detected (NotDetected); Oxycodone Screen, Urine Not Detected (NotDetected); Phencyclidine Screen,Urine Not Detected (NotDetected); Tricyclic Antidepressant,Urine Detected (NotDetected); Urn Cannabinoid Scrn Not Detected (NotDetected)
[2022-04-28] MEDS ORDERED: HYDROcodone/APAP 10-325MG 1 EACH TAB PO ONE (05:02)
--- NOTE | 2022-04-28 06:02 | XR ---
EXAM: XR Chest, 1 View CLINICAL HISTORY: ITS.REASON XR Reason: chest pain TECHNIQUE: Frontal view of the chest. COMPARISON: 12/19/2021 FINDINGS: Lungs: Unremarkable. No consolidation. Pleural space: Unremarkable. No pneumothorax. Heart: Unremarkable. No cardiomegaly. Mediastinum: Unremarkable. Bones/joints: Unremarkable. IMPRESSION: Normal chest x-ray.
== END 2022-04-28 06:12 | disposition home or self-care (01) ==
LOC: EC 21:32
DX: F32.A Depression, unspecified (principal); F43.20 Adjustment disorder, unspecified; Z87.891 Personal history of nicotine dependence; Z91.048 Other nonmedicinal substance allergy status; Z91.030 Bee allergy status; Z88.6 Allergy status to analgesic agent
CPT/HCPCS: 82075; 36415; 84484; 85025; 81003; 80306; 80143; 80179; 71045; 99285; G0480; 80320

== ENCOUNTER 2022-05-24 23:05 | Emergency (ER) | payer MEDICARE ==
[2022-05-24 23:29] VITALS: BP 123/89; PULSE 106; RESP 18; TEMP 98.2
[2022-05-24] MEDS ORDERED: Acetaminophen-Codeine 300-30mg TAB PO STA (23:32)
--- NOTE | 2022-05-24 23:33 | ED ---
Back Pain HPI - General Chief Complaint: Back Pain/Injury Stated Complaint: Back Pain, Fall Time Seen by Provider: 05/24/22 23:32 Source: patient, RN notes reviewed, old records reviewed Limitations: no limitations - History of Present Illness Initial Comments: This is a 41-year-old male DF for evaluation patient presents today for evaluation of back pain back pain after fall. Patient thinks he may fall complaining of the roof fall didn't appear to be mechanical in nature. Patient complaining of back pain currently. No other complaints. No neurological complaints, no loss of bowel or bladder, patient states he does need something for pain MD Complaint: back pain, back injury, fall -: hour(s) Similar Symptoms Previously: Yes Place: home Radiation: none Severity: moderate Severity scale (1-10): 4 Consistency: constant Improves With: immobilization Worsens With: movement Context: fall Associated Symptoms: denies other symptoms - Related Data Home Medications Medication Instructions Recorded Confirmed EPINEPHrine (Auto Inject) [Epipen] 0.3 mg IM ONCE PRN 08/22/19 03/03/22 Gabapentin [Neurontin] 400 mg PO TID PRN 08/22/19 03/03/22 PARoxetine HCL [Paxil] 60 mg PO DAILY 08/22/19 03/03/22 traZODone HCL 150 mg PO HS 10/09/20 03/03/22 Ibuprofen [Motrin] 800 mg PO Q8H PRN 11/23/21 03/03/22 Metoprolol Tartrate [Lopressor] 12.5 mg PO BID 11/23/21 03/03/22 hydrOXYzine pamoate [Vistaril] 25 mg PO HS 11/23/21 03/03/22 Previous Rx's Medication Instructions Recorded Amoxic-Pot Clav 875-125Mg 1 tab PO Q12HR #14 tablet 03/21/22 [Augmentin 875-125] Baclofen 10 mg PO TID PRN #24 tab 03/25/22 Famotidine [Pepcid] 20 mg PO BID #14 tablet 04/26/22 diphenhydrAMINE [Benadryl] 50 mg PO QID #28 capsule 04/26/22 predniSONE 60 mg PO DAILY #30 tab 04/26/22 Allergies Allergy/AdvReac Type Severity Reaction Status Date / Time ketorolac tromethamine Allergy Rash/Hives/Swelling Verified 05/24/22 23:31 [From Toradol] at injection site venom-honey bee Allergy Anaphylaxis Verified 05/24/22 23:31 [bee venom (honey bee)] naproxen AdvReac Nausea & Verified 05/24/22 23:31 Vomiting & Diarrhea Review of Systems ROS Statement: Those systems with pertinent positive or pertinent negative responses have been documented in the HPI. ROS Other: All systems not noted in ROS Statement are negative. Past Medical History Past Medical History: No Reported History Additional Past Medical History / Comment(s): chronic knee pain, back pain History of Any Multi-Drug Resistant Organisms: MRSA Date of last positivie culture/infection: 2008 MDRO Source:: thumb Past Surgical History: Appendectomy, Back Surgery, Orthopedic Surgery Additional Past Surgical History / Comment(s): l4-5 fusion march 2020, carpel tunnnel release, vascectomy, skin graft knee surg x4, hip surgery. bowel surgery Past Anesthesia/Blood Transfusion Reactions: No Reported Reaction Past Psychological History: Anxiety, Depression, PTSD Smoking Status: Former smoker Past Alcohol Use History: Occasional Past Drug Use History: None Reported - Past Family History Father Family Medical History: No Reported History Additional Family Medical History / Comment(s): Father is alive at age 61 was no major medical problems. Mother Family Medical History: No Reported History Additional Family Medical History / Comment(s): Mother is alive at age 56 with history of spinal surgeries and neurological disorders. Patient's troponin is and one sister with no major medical problems. Patient has 1 son and 1 daughter with no major medical problems. General Exam General appearance: alert, in no apparent distress Head exam: Present: atraumatic, normocephalic, normal inspection Eye exam: Present: normal appearance, PERRL, EOMI. Absent: scleral icterus, conjunctival injection, periorbital swelling ENT exam: Present: normal exam, mucous membranes moist Neck exam: Present: normal inspection. Absent: tenderness, meningismus, lymphadenopathy Respiratory exam: Present: normal lung sounds bilaterally. Absent: respiratory distress, wheezes, rales, rhonchi, stridor Cardiovascular Exam: Present: regular rate, normal rhythm, normal heart sounds. Absent: systolic murmur, diastolic murmur, rubs, gallop, clicks GI/Abdominal exam: Present: soft, normal bowel sounds. Absent: distended, tenderness, guarding, rebound, rigid Extremities exam: Present: normal inspection, full ROM, normal capillary refill. Absent: tenderness, pedal edema, joint swelling, calf tenderness Back exam: Present: normal inspection Neurological exam: Present: alert, oriented X3, CN II-XII intact Psychiatric exam: Present: normal affect, normal mood Skin exam: Present: warm, dry, intact, normal color. Absent: rash Course Vital Signs 05/24/22 23:26 Temperature 98.2 F Pulse Rate 106 H Respiratory 18 Rate Blood Pressure 123/89 O2 Sat by Pulse 96 Oximetry - Reevaluation(s) Reevaluation #1: 05/25/22 Medical record is reviewed Reevaluation #2: 05/25/22 Patient symptoms are improved Reevaluation #3: 05/25/22 Patient informed of results and questions answered Medical Decision Making - Medical Decision Making 41 male to the emergency department status post trip and fall. She'll follow back pain back pain much improved able to ambulate no neurological findings patient can be discharged home Disposition Clinical Impression: Mechanical back pain, Mid back pain, Fall Disposition: HOME SELF-CARE Condition: Good Instructions (If sedation given, give patient instructions): Acute Low Back Pain (ED) Is patient prescribed a controlled substance at d/c from ED?: No Referrals: Nik Paula MD [Primary Care Provider] - 1-2 days Time of Disposition: 00:10
== END 2022-05-25 00:10 | disposition home or self-care (01) ==
LOC: EC 23:05
DX: M54.6 Pain in thoracic spine (principal); Z87.891 Personal history of nicotine dependence; Z88.6 Allergy status to analgesic agent; Z91.030 Bee allergy status; W01.0XXA Fall on same level from slipping, tripping and stumbling without subsequent striking against object, initial encounter; Y92.009 Unspecified place in unspecified non-institutional (private) residence as the place of occurrence of the external cause
CPT/HCPCS: 99283

== ENCOUNTER 2022-06-05 17:06 | Observation (INO) | payer MEDICARE ==
[2022-06-05 17:33] LABS: Basophils # (A) 0.1 k/uL (0-0.2); Basophils % (A) 1 %; Eosinophils # (A) 0.5 k/uL (0-0.7); Eosinophils % (A) 6 %; HCT 40.8 % (39.0-53.0); Lymphocytes # (A) 2.9 k/uL (1.0-4.8); Lymphocytes % (A) 35 %; MCH 30.6 pg (25.0-35.0); MCHC 34.4 g/dL (31.0-37.0); MCV 89.2 fL (80.0-100.0); Mean Platelet Volume 7.6; Monocytes # (A) 0.4 k/uL (0-1.0); Monocytes % (A) 5 %; Neutrophils # (A) 4.3 k/uL (1.3-7.7); Neutrophils % (A) 52 %; Platelet Count 261 k/uL (150-450); RBC 4.58 m/uL (4.30-5.90); RDW 13.3 % (11.5-15.5); WBC 8.2 k/uL (3.8-10.6)
[2022-06-05 17:46] LABS: ALT 35 U/L (4-49); AST 31 U/L (17-59); African American GFR (CKD) >90 (>60 ml/min/1.73 sqM); Albumin 4.2 g/dL (3.5-5.0); Alkaline Phosphatase 64 U/L (38-126); Anion Gap 6 mmol/L; Blood Urea Nitrogen 18 mg/dL (9-20); Carbon Dioxide 25 mmol/L (22-30); Chloride 107 mmol/L (98-107); Glucose 107 mg/dL (74-99); Non-African American GFR(CKD) 90 (>60 ml/min/1.73 sqM); Potassium 3.9 mmol/L (3.5-5.1); Sodium 138 mmol/L (137-145); Total Bilirubin 0.4 mg/dL (0.2-1.3)
[2022-06-05 17:47] LABS: INR 0.9 (<1.2); Partial Thromboplastin Time 25.4 sec (22.0-30.0); Prothrombin Time 10.2 sec (9.0-12.0)
[2022-06-05] MEDS ORDERED: hydrOXYzine HCL 25 MG TAB PO STA (18:25)
--- NOTE | 2022-06-05 18:42 | ED ---
Chest Pain HPI - General Chief Complaint: Chest Pain Stated Complaint: Chest Pain, Anxiety Time Seen by Provider: 06/05/22 18:14 Source: patient Mode of arrival: ambulatory Limitations: no limitations - History of Present Illness Initial Comments: Patient is a 41-year-old male presenting with chief complaint of chest pain. Patient states that today he started having intermittent chest pain located in the center of his chest that radiates down the left arm. Patient has history of coronary artery disease. He admits to intermittent nausea and anxiety.. Denies vomiting, shortness of breath, palpitations, weakness, numbness, tingling, abdominal pain, dysuria, hematuria, diarrhea, hematochezia, melena, URI-like symptoms. - Related Data Home Medications Medication Instructions Recorded Confirmed PARoxetine HCL [Paxil] 60 mg PO DAILY 08/22/19 06/05/22 traZODone HCL 150 mg PO HS 10/09/20 06/05/22 Ibuprofen [Motrin] 800 mg PO Q8H PRN 11/23/21 06/05/22 Metoprolol Tartrate [Lopressor] 12.5 mg PO BID 11/23/21 06/05/22 Gabapentin 600 mg PO TID PRN 06/05/22 06/05/22 HYDROcodone/APAP 10-325MG [[place] 1 tab PO Q6H PRN 06/05/22 06/05/22 10-325] Meloxicam [Mobic] 15 mg PO HS 06/05/22 06/05/22 Prazosin HCl 6 mg PO HS 06/05/22 06/05/22 Allergies Allergy/AdvReac Type Severity Reaction Status Date / Time ketorolac tromethamine Allergy Rash/Hives/Swelling Verified 06/05/22 21:36 [From Toradol] at injection site venom-honey bee Allergy Anaphylaxis Verified 06/05/22 21:36 [bee venom (honey bee)] naproxen AdvReac Nausea & Verified 06/05/22 21:36 Vomiting & Diarrhea Review of Systems ROS Statement: Those systems with pertinent positive or pertinent negative responses have been documented in the HPI. ROS Other: All systems not noted in ROS Statement are negative. EKG Findings - EKG Comments: EKG Findings:: Sinus rhythm rate of 83. MO interval 152. QRS duration 103. QT/QTC 359/399. No ischemic ST or T-wave changes. Past Medical History Past Medical History: Coronary Artery Disease (CAD) Additional Past Medical History / Comment(s): chronic knee pain, back pain, RBBB History of Any Multi-Drug Resistant Organisms: MRSA Date of last positivie culture/infection: 2008 MDRO Source:: thumb Past Surgical History: Appendectomy, Back Surgery, Orthopedic Surgery Additional Past Surgical History / Comment(s): l4-5 fusion march 2020, carpel tunnnel release, vascectomy, skin graft knee surg x4, hip surgery. bowel surgery Past Anesthesia/Blood Transfusion Reactions: No Reported Reaction Past Psychological History: Anxiety, Depression, PTSD Smoking Status: Former smoker Past Alcohol Use History: Occasional Past Drug Use History: None Reported - Past Family History Father Family Medical History: No Reported History Additional Family Medical History / Comment(s): Father is alive at age 61 was no major medical problems. Mother Family Medical History: No Reported History Additional Family Medical History / Comment(s): Mother is alive at age 56 with history of spinal surgeries and neurological disorders. Patient's troponin is and one sister with no major medical problems. Patient has 1 son and 1 daughter with no major medical problems. General Exam Limitations: no limitations General appearance: alert, in no apparent distress Head exam: Present: atraumatic, normocephalic, normal inspection Eye exam: Present: normal appearance, EOMI. Absent: scleral icterus, periorbital swelling Neck exam: Present: normal inspection Respiratory exam: Present: normal lung sounds bilaterally. Absent: respiratory distress, wheezes, rales, rhonchi, stridor Cardiovascular Exam: Present: regular rate, normal rhythm, normal heart sounds. Absent: systolic murmur, diastolic murmur, rubs, gallop, clicks Course Vital Signs 06/05/22 06/05/22 17:08 19:36 Temperature 97.8 F 97.8 F Pulse Rate 92 70 Respiratory 24 16 Rate Blood Pressure 126/86 145/75 O2 Sat by Pulse 99 97 Oximetry Chest Pain MDM - MDM Patient is a 41-year-old male with history of CAD presenting with chief complaint of chest pain. Patient states it is located substernally and radiates down the left arm. He admits to anxiety and some nausea. On examination pain is not reproducible. Heart and lungs are clear to auscultation. Patient appears somewhat anxious. I work is grossly negative, troponin is WNL. Patient is negative for Covid. Chest x-ray shows no acute process. EKG showed no ischemic findings. Given the patient's history of CAD and the nature of his pain, he will be placed in observation for chest pain. I spoke with Dr. Villegas from [facility] who agreed to admit the patient. I discussed these findings the plan with the patient, he conveyed verbal understanding and agreed to the plan. I discussed this case with my attending Dr. Nichols Disposition Clinical Impression: Chest pain Disposition: ADMITTED IP TO THIS HOSP Condition: Fair Time of Disposition: 20:26
[2022-06-05] MEDS ORDERED: MORPHINE SULFATE 4 MG/ML SYRINGE IVP STA (19:40)
[2022-06-05] MEDS ORDERED: NALOXONE 0.4 MG/ML 1 ML VIAL IV PRN (20:22)
[2022-06-05] MEDS ORDERED: LORazepam 0.5 MG TAB PO PRN (20:22)
[2022-06-05] MEDS ORDERED: SODIUM CHLORIDE 0.9% 1,000 ML IV SCH (20:30)
--- NOTE | 2022-06-05 21:07 | XR ---
EXAMINATION TYPE: XR chest 2V DATE OF EXAM: 06/05/2022 COMPARISON: 04/28/2022 HISTORY: Chest pain TECHNIQUE: 2 views FINDINGS: Heart is normal. Lungs are clear of infiltrate. No heart failure. There are no hilar masses . Bony thorax is intact. IMPRESSION: No active cardiopulmonary disease. Normal heart. No adverse change.
[2022-06-06] MEDS ORDERED: MORPHINE SULFATE 4 MG/ML SYRINGE IV STA (02:42)
[2022-06-06 04:20] VITALS: TEMP 97.6
[2022-06-06 07:28] VITALS: BP 148/94; PULSE 80; RESP 18
[2022-06-06] MEDS ORDERED: METOPROLOL TARTRATE 12.5 MG TAB PO SCH (09:45)
--- NOTE | 2022-06-06 11:15 | P.CRDCN ---
History of Present Illness Consult date: 06/06/22 Chief complaint: Chest pain History of present illness: The patient is a pleasant 41-year-old gentleman with a past medical history significant for hypertension presented to the hospital complaining of chest discomfort. He was in his usual state of altered yesterday when he started experiencing discomfort in the middle of the chest as well as on the left side of the chest as a dull kind of discomfort with no radiation to the arms or neck or shoulders or back and no associated symptoms of shortness of breath or sweating or dizziness or lightheadedness or presyncope or syncope. He underwent extensive cardiovascular workup including EKG showing sinus rhythm with no ST or T-wave abnormalities concerning for ischemia and also cardiac enzymes came in to be unremarkable. The chest x-ray did not show any acute abnormalities. He underwent also CBC and BMP and that also came in to be unremarkable. When he was seen and evaluated at this morning he was having about 2/10 in intensity chest discomfort. I advised the patient to undergo a stress test this coming Wednesday since we don't to stresses on the weekend but the patient would like to go home and have the test done as an outpatient. We are going to get the patient up and around and if his symptoms did not get worse he potentially can be discharged home. He was advised to come to the emergency department if the chest discomfort has gotten worse. Also we are going to call and schedule a follow-up with the patient. Past Medical History Past Medical History: Coronary Artery Disease (CAD) Additional Past Medical History / Comment(s): chronic knee pain, back pain, RBBB History of Any Multi-Drug Resistant Organisms: MRSA Date of last positivie culture/infection: 2008 MDRO Source:: thumb Past Surgical History: Appendectomy, Back Surgery, Orthopedic Surgery Additional Past Surgical History / Comment(s): l4-5 fusion march 2020, carpel tunnnel release, vascectomy, skin graft knee surg x4, hip surgery. bowel surgery Past Anesthesia/Blood Transfusion Reactions: No Reported Reaction Past Psychological History: Anxiety, Depression, PTSD Additional Psychological History / Comment(s): Pt resides with his spouse and 2 children. He is independent. He is retired. He served in the . Smoking Status: Former smoker Past Alcohol Use History: Occasional Additional Past Alcohol Use History / Comment(s): Patient was a smoker of half a pack per day for 10 years and quit in June 2018. He denies any marijuana or street drug use. He drinks alcohol socially. He currently lives at home with his . 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 Past Drug Use History: None Reported - Past Family History Father Family Medical History: No Reported History Additional Family Medical History / Comment(s): Father is alive at age 61 was no major medical problems. Mother Family Medical History: No Reported History Additional Family Medical History / Comment(s): Mother is alive at age 56 with history of spinal surgeries and neurological disorders. Patient's troponin is and one sister with no major medical problems. Patient has 1 son and 1 daughter with no major medical problems. Medications and Allergies Home Medications Medication Instructions Recorded Confirmed Type PARoxetine HCL [Paxil] 60 mg PO DAILY 08/22/19 06/05/22 History traZODone HCL 150 mg PO HS 10/09/20 06/05/22 History Ibuprofen [Motrin] 800 mg PO Q8H PRN 11/23/21 06/05/22 History Metoprolol Tartrate [Lopressor] 12.5 mg PO BID 11/23/21 06/05/22 History Gabapentin 600 mg PO TID PRN 06/05/22 06/05/22 History HYDROcodone/APAP 10-325MG [[place] 1 tab PO Q6H PRN 06/05/22 06/05/22 History 10-325] Meloxicam [Mobic] 15 mg PO HS 06/05/22 06/05/22 History Prazosin HCl 6 mg PO HS 06/05/22 06/05/22 History Allergies Allergy/AdvReac Type Severity Reaction Status Date / Time ketorolac tromethamine Allergy Rash/Hives/Swelling Verified 06/05/22 21:36 [From Toradol] at injection site venom-honey bee Allergy Anaphylaxis Verified 06/05/22 21:36 [bee venom (honey bee)] naproxen AdvReac Nausea & Verified 06/05/22 21:36 Vomiting & Diarrhea Physical Exam Vitals: Vital Signs Temp Pulse Pulse Resp BP BP Pulse Ox 06/06/22 07:00 97.6 F 80 18 148/94 95 06/06/22 03:00 97.6 F 68 17 123/82 96 06/06/22 02:09 98.1 F 72 14 131/94 95 06/06/22 00:03 98.3 F 71 16 134/82 94 L 06/05/22 19:36 97.8 F 70 16 145/75 97 06/05/22 17:08 97.8 F 92 24 126/86 99 Intake and Output 06/05/22 06/06/22 06/06/22 22:59 06:59 14:59 Other: # Voids 1 Weight 122.47 kg 122.47 kg - Constitutional General appearance: no acute distress - Respiratory Respiratory: bilateral: CTA - Cardiovascular Rhythm: regular Heart sounds: normal: S1, S2 Abnormal Heart Sounds: systolic murmur Results 06/05/22 17:18 06/05/22 17:18 Cardiac Enzymes 06/05/22 06/05/22 06/05/22 Range/Units 17:18 17:18 20:44 AST 31 (17-59) U/L Troponin I <0.012 <0.012 (0.000-0.034) ng/mL 06/05/22 Range/Units 23:58 AST (17-59) U/L Troponin I <0.012 (0.000-0.034) ng/mL Coagulation 06/05/22 Range/Units 17:18 PT 10.2 (9.0-12.0) sec APTT 25.4 (22.0-30.0) sec CBC 06/05/22 Range/Units 17:18 WBC 8.2 (3.8-10.6) k/uL RBC 4.58 (4.30-5.90) m/uL Hgb 14.0 (13.0-17.5) gm/dL Hct 40.8 (39.0-53.0) % Plt Count 261 (150-450) k/uL Comprehensive Metabolic Panel 06/05/22 Range/Units 17:18 Sodium 138 (137-145) mmol/L Potassium 3.9 (3.5-5.1) mmol/L Chloride 107 (98-107) mmol/L Carbon Dioxide 25 (22-30) mmol/L BUN 18 (9-20) mg/dL Creatinine 1.05 (0.66-1.25) mg/dL Glucose 107 H (74-99) mg/dL Calcium 9.0 (8.4-10.2) mg/dL AST 31 (17-59) U/L ALT 35 (4-49) U/L Alkaline Phosphatase 64 (38-126) U/L Total Protein 7.0 (6.3-8.2) g/dL Albumin 4.2 (3.5-5.0) g/dL Current Medications Generic Name Dose Route Start Last Admin Trade Name Freq PRN Reason Stop Dose Admin Sodium Chloride 1,000 mls @ 75 mls/hr 06/05/22 20:30 06/06/22 03:33 Saline 0.9% IV Not Given .[id number] JANIE Lorazepam 0.5 mg 06/05/22 20:22 06/05/22 21:15 Lorazepam 0.5 Mg Tab PO 0.5 mg Q6HR PRN Administration Anxiety Metoprolol Tartrate 12.5 mg 06/06/22 09:45 06/06/22 10:14 Metoprolol Tartrate 12.5 Mg Tab PO 12.5 mg BID JANIE Administration Naloxone HCl 0.2 mg 06/05/22 20:22 Naloxone 0.4 Mg/Ml 1 Ml Vial IV Q2M PRN Opioid Reversal Intake and Output 06/05/22 06/06/22 06/06/22 22:59 06:59 14:59 Other: # Voids 1 Weight 122.47 kg 122.47 kg 06/05/22 17:18 06/05/22 17:18 Assessment and Plan Assessment: Assessment #1 atypical chest discomfort #2 hypertension Plan #1 acute coronary event was ruled out #2 the patient was advised to undergo a stress test this coming Wednesday but he would like to have the test as an outpatient
--- NOTE | 2022-06-06 12:47 | P.HPIM ---
History of Present Illness Patient is a pleasant 41-year-old female with compensative chest pain noncardiac discomfort is in the middle of the chest is dull in nature associated with anxiety. Patient was evaluated by cardiology EKGs did not show any acute ST-T wave changes troponins were negative chest x-ray did not show any significant abnormality patient was evaluated by cardiology patient was cleared for discharge. Patient denied any gases visual reflux symptoms. Chest pain not associated with the shortness of breath lightheadedness dizziness, not associated with food, no associated nausea. Patient does have history of degenerative arthritis and chronic pain for which patient is on meloxicam and daily basis and as needed Motrin. REVIEW OF SYSTEMS: CONSTITUTIONAL: No fever, no malaise, no fatigue. HEENT: No recent visual problems or hearing problems. Denied any sore throat. CARDIOVASCULAR: No orthopnea, PND, no palpitations, no syncope. PULMONARY: No shortness of breath, no cough, no hemoptysis. GASTROINTESTINAL: No diarrhea, no nausea, no vomiting, no abdominal pain. NEUROLOGICAL: No headaches, no weakness, no numbness. HEMATOLOGICAL: Denies any bleeding or petechiae. GENITOURINARY: Denies any burning micturition, frequency, or urgency. MUSCULOSKELETAL/RHEUMATOLOGICAL: Denies any joint pain, swelling, or any muscle pain. ENDOCRINE: Denies any polyuria or polydipsia. The rest of the 14-point review of systems is negative. PHYSICAL EXAMINATION: GENERAL: The patient is alert and oriented x3, not in any acute distress. Well developed, well nourished. HEENT: Pupils are round and equally reacting to light. EOMI. No scleral icterus. No conjunctival pallor. Normocephalic, atraumatic. No pharyngeal erythema. No t hyromegaly. CARDIOVASCULAR: S1 and S2 present. No murmurs, rubs, or gallops. PULMONARY: Chest is clear to auscultation, no wheezing or crackles. ABDOMEN: Soft, nontender, nondistended, normoactive bowel sounds. No palpable organomegaly. MUSCULOSKELETAL: No joint swelling or deformity. EXTREMITIES: No cyanosis, clubbing, or pedal edema. NEUROLOGICAL: Gross neurological examination did not reveal any focal deficits. SKIN: No rashes. Assessment and plan -Chest pain atypical noncardiac probably related to anxiety evaluated by cardiology rule out acute coronary syndromes patient will be discharged today patient is already on paroxetine which she will continue. Patient chest pain appears to be secondary to anxiety episode -Hypertension Chronic back pain -Depression and anxiety. Patient will be discharged today Past Medical History Past Medical History: Coronary Artery Disease (CAD) Additional Past Medical History / Comment(s): chronic knee pain, back pain, RBBB History of Any Multi-Drug Resistant Organisms: MRSA Date of last positivie culture/infection: 2008 MDRO Source:: thumb Past Surgical History: Appendectomy, Back Surgery, Orthopedic Surgery Additional Past Surgical History / Comment(s): l4-5 fusion march 2020, carpel tunnnel release, vascectomy, skin graft knee surg x4, hip surgery. bowel surgery Past Anesthesia/Blood Transfusion Reactions: No Reported Reaction Past Psychological History: Anxiety, Depression, PTSD Additional Psychological History / Comment(s): Pt resides with his spouse and 2 children. He is independent. He is retired. He served in the . Smoking Status: Former smoker Past Alcohol Use History: Occasional Additional Past Alcohol Use History / Comment(s): Patient was a smoker of half a pack per day for 10 years and quit in June 2018. He denies any marijuana or street drug use. He drinks alcohol socially. He currently lives at home with his . 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 Past Drug Use History: None Reported - Past Family History Father Family Medical History: No Reported History Additional Family Medical History / Comment(s): Father is alive at age 61 was no major medical problems. Mother Family Medical History: No Reported History Additional Family Medical History / Comment(s): Mother is alive at age 56 with history of spinal surgeries and neurological disorders. Patient's troponin is and one sister with no major medical problems. Patient has 1 son and 1 daughter with no major medical problems. Medications and Allergies Home Medications Medication Instructions Recorded Confirmed Type PARoxetine HCL [Paxil] 60 mg PO DAILY 08/22/19 06/05/22 History traZODone HCL 150 mg PO HS 10/09/20 06/05/22 History Ibuprofen [Motrin] 800 mg PO Q8H PRN 11/23/21 06/05/22 History Metoprolol Tartrate [Lopressor] 12.5 mg PO BID 11/23/21 06/05/22 History Gabapentin 600 mg PO TID PRN 06/05/22 06/05/22 History HYDROcodone/APAP 10-325MG [[place] 1 tab PO Q6H PRN 06/05/22 06/05/22 History 10-325] Meloxicam [Mobic] 15 mg PO HS 06/05/22 06/05/22 History Prazosin HCl 6 mg PO HS 06/05/22 06/05/22 History Famotidine [Pepcid] 20 mg PO BID #60 tablet 06/06/22 Rx Allergies Allergy/AdvReac Type Severity Reaction Status Date / Time ketorolac tromethamine Allergy Rash/Hives/Swelling Verified 06/05/22 21:36 [From Toradol] at injection site venom-honey bee Allergy Anaphylaxis Verified 06/05/22 21:36 [bee venom (honey bee)] naproxen AdvReac Nausea & Verified 06/05/22 21:36 Vomiting & Diarrhea Physical Exam Vitals: Vital Signs Temp Pulse Pulse Resp BP BP Pulse Ox 06/06/22 07:00 97.6 F 80 18 148/94 95 06/06/22 03:00 97.6 F 68 17 123/82 96 06/06/22 02:09 98.1 F 72 14 131/94 95 06/06/22 00:03 98.3 F 71 16 134/82 94 L 06/05/22 19:36 97.8 F 70 16 145/75 97 06/05/22 17:08 97.8 F 92 24 126/86 99 Intake and Output 06/05/22 06/06/22 06/06/22 22:59 06:59 14:59 Other: # Voids 1 Weight 122.47 kg 122.47 kg Results CBC & Chem 7: 06/05/22 17:18 06/05/22 17:18 Labs: Abnormal Lab Results - Last 24 Hours (Table) 06/05/22 Range/Units 17:18 Glucose 107 H (74-99) mg/dL Thrombosis Risk Factor Assmnt - Choose All That Apply Each Factor Represents 1 point: Obesity (BMI >25) Thrombosis Risk Factor Assessment Total Risk Factor Score: 1 Thrombosis Risk Factor Assessment Level: Low Risk
--- NOTE | 2022-06-06 12:47 | P.DS ---
Providers Date of admission: 06/05/22 20:33 Attending physician: Lourdes Villegas MD Consults: 06/05/22 20:22 Consult Physician Urgent Consulting Provider: [facility] Consult Reason/Comments: chest pain Do you want consulting provider notified?: Yes Primary care physician: Nik Paula [facility] Course: Please refer to history of present illness for further details Patient Condition at Discharge: Fair Plan - Discharge Summary Discharge Rx Participant: No New Discharge Prescriptions: New Famotidine [Pepcid] 20 mg PO BID #60 tablet Continue PARoxetine HCL [Paxil] 60 mg PO DAILY traZODone HCL 150 mg PO HS Ibuprofen [Motrin] 800 mg PO Q8H PRN PRN Reason: Pain Gabapentin 600 mg PO TID PRN PRN Reason: Pain HYDROcodone/APAP 10-325MG [[place] 10-325] 1 tab PO Q6H PRN PRN Reason: Pain Meloxicam [Mobic] 15 mg PO HS Metoprolol Tartrate [Lopressor] 12.5 mg PO BID Prazosin HCl 6 mg PO HS Discharge Medication List PARoxetine HCL [Paxil] 60 mg PO DAILY 08/22/19 [History] traZODone HCL 150 mg PO HS 10/09/20 [History] Ibuprofen [Motrin] 800 mg PO Q8H PRN 11/23/21 [History] Metoprolol Tartrate [Lopressor] 12.5 mg PO BID 11/23/21 [History] Gabapentin 600 mg PO TID PRN 06/05/22 [History] HYDROcodone/APAP 10-325MG [[place] 10-325] 1 tab PO Q6H PRN 06/05/22 [History] Meloxicam [Mobic] 15 mg PO HS 06/05/22 [History] Prazosin HCl 6 mg PO HS 06/05/22 [History] Famotidine [Pepcid] 20 mg PO BID #60 tablet 06/06/22 [Rx] Follow up Appointment(s)/Referral(s): Nik Paula MD [Primary Care Provider] - 3 Days
== END 2022-06-06 13:20 | disposition home or self-care (01) ==
LOC: EC 17:06 → 6NMEDSUR 20:33
PROVIDERS: ADMIT Internal Medicine; ATTEND Internal Medicine
DX: R07.89 Other chest pain (principal); I10 Essential (primary) hypertension; F41.9 Anxiety disorder, unspecified; I25.10 Atherosclerotic heart disease of native coronary artery without angina pectoris; R11.0 Nausea; G89.29 Other chronic pain; M54.9 Dorsalgia, unspecified; M25.569 Pain in unspecified knee; M19.90 Unspecified osteoarthritis, unspecified site; I45.10 Unspecified right bundle-branch block; F32.A Depression, unspecified; E66.9 Obesity, unspecified; Z68.33 Body mass index [BMI] 33.0-33.9, adult; F43.10 Post-traumatic stress disorder, unspecified; Z20.822 Contact with and (suspected) exposure to COVID-19; Z79.1 Long term (current) use of non-steroidal anti-inflammatories (NSAID); Z79.899 Other long term (current) drug therapy; Z88.5 Allergy status to narcotic agent; Z88.6 Allergy status to analgesic agent; Z91.030 Bee allergy status; Z86.14 Personal history of Methicillin resistant Staphylococcus aureus infection; Z90.49 Acquired absence of other specified parts of digestive tract; Z98.52 Vasectomy status; Z98.1 Arthrodesis status; Z87.891 Personal history of nicotine dependence; Z98.890 Other specified postprocedural states; Z82.0 Family history of epilepsy and other diseases of the nervous system
CPT/HCPCS: 96376; 96374; 99285; 36415; 93005; 80053; 84484; 85025; 85610; 85730; 87635; 71046; G0378 ×2; J2270 ×2

== ENCOUNTER 2022-06-06 23:47 | Observation (INO) | payer MEDICARE ==
--- NOTE | 2022-06-07 00:20 | ED ---
General Adult HPI - General Chief complaint: Chest Pain Stated complaint: Chest Pain Time Seen by Provider: 06/07/22 00:06 Source: patient Mode of arrival: ambulatory Limitations: no limitations - History of Present Illness Initial comments: Dictation was produced using [employer] ([email or web address]) dictation software. please excuse any grammatical, word or spelling errors. Chief Complaint: 41-year-old male presents to the emergency department for chest pain History of Present Illness: 41-year-old male who presents emergency department for chest pain. Patient was just admitted to the hospital yesterday. He was admitted to observation overnight for evaluation of chest pain. Seen by cardiology and had a cardiac workup. Patient was discharged however told to return to the emergency department if his symptoms came back. Patient states that he wanted to leave today because he wanted to attend his son 16th birthday constitution party. Patient states that he was feeling fine for most of the day of however early on in the afternoon patient states his chest pain return. States pain radiates on his left upper extremity. States is a sharp pain that's not a ssociated with diaphoresis or nausea. The ROS documented in this emergency department record has been reviewed and confirmed by me. Those systems with pertinent positive or negative responses have been documented in the HPI. All other systems are other negative and/or noncontributory. PHYSICAL EXAM: General Impression: Alert and oriented x3, not in acute distress HEENT: Normocephalic atraumatic, extra-ocular movements intact, pupils equal and reactive to light bilaterally, mucous membranes moist. Cardiovascular: Heart regular rate and rhythm Chest: Able to complete full sentences, no retractions, no tachypnea Abdomen: abdomen soft, non-tender, non-distended, no organomegaly Musculoskeletal: Pulses present and equal in all extremities, no peripheral edema Motor: no focal deficits noted Neurological: CN II-XII grossly intact, no focal motor or sensory deficits noted Skin: Intact with no visualized rashes Psych: Normal affect and mood ED course: 41-year-old male presents emergency department for chest pain. His symptoms are atypical with typical features. Patient was just discharged after short observation admission or chest pain. Vital signs upon arrival are within acceptable limits. Chart review shows no stress test or calf. Laboratory evaluation obtained. CBC unremarkable. Metabolic panel is negative. Troponin is negative. Disposition options were discussed with patient is agreeable for observation admission with consultation to cardiology and further care. EKG interpretation: Ventricular rate 80, sinus rhythm,. Interval 162, care is 106, QTC 410. No ID prolongation, no QTC prolongation, no ST or T-wave changes noted. EKG compared to 06/05/2022 showing no changes. Overall, this EKG is unremarkable - Related Data Home Medications Medication Instructions Recorded Confirmed RX: PARoxetine HCL [Paxil] 60 mg PO DAILY 08/22/19 06/05/22 RX: traZODone HCL 150 mg PO HS 10/09/20 06/05/22 RX: Ibuprofen [Motrin] 800 mg PO Q8H PRN 11/23/21 06/05/22 RX: Metoprolol Tartrate [Lopressor] 12.5 mg PO BID 11/23/21 06/05/22 RX: Gabapentin 600 mg PO TID PRN 06/05/22 06/05/22 RX: HYDROcodone/APAP 10-325MG 1 tab PO Q6H PRN 06/05/22 06/05/22 [[place] 10-325] RX: Meloxicam [Mobic] 15 mg PO HS 06/05/22 06/05/22 RX: Prazosin HCl 6 mg PO HS 06/05/22 06/05/22 Previous Rx's Medication Instructions Recorded Famotidine [Pepcid] 20 mg PO BID #60 tablet 06/06/22 Allergies Allergy/AdvReac Type Severity Reaction Status Date / Time ketorolac tromethamine Allergy Rash/Hives/Swelling Verified 06/07/22 00:03 [From Toradol] at injection site venom-honey bee Allergy Anaphylaxis Verified 06/07/22 00:03 [bee venom (honey bee)] naproxen AdvReac Nausea & Verified 06/07/22 00:03 Vomiting & Diarrhea Review of Systems ROS Statement: Those systems with pertinent positive or pertinent negative responses have been documented in the HPI. ROS Other: All systems not noted in ROS Statement are negative. Past Medical History Past Medical History: Coronary Artery Disease (CAD) Additional Past Medical History / Comment(s): chronic knee pain, back pain, RBBB History of Any Multi-Drug Resistant Organisms: MRSA Date of last positivie culture/infection: 2008 MDRO Source:: thumb Past Surgical History: Appendectomy, Back Surgery, Orthopedic Surgery Additional Past Surgical History / Comment(s): l4-5 fusion march 2020, carpel tunnnel release, vascectomy, skin graft knee surg x4, hip surgery. bowel surgery Past Anesthesia/Blood Transfusion Reactions: No Reported Reaction Past Psychological History: Anxiety, Depression, PTSD Smoking Status: Former smoker Past Alcohol Use History: Occasional Past Drug Use History: None Reported - Past Family History Father Family Medical History: No Reported History Additional Family Medical History / Comment(s): Father is alive at age 61 was no major medical problems. Mother Family Medical History: No Reported History Additional Family Medical History / Comment(s): Mother is alive at age 56 with history of spinal surgeries and neurological disorders. Patient's troponin is and one sister with no major medical problems. Patient has 1 son and 1 daughter with no major medical problems. General Exam Limitations: no limitations Course Vital Signs 06/07/22 06/07/22 00:00 01:38 Temperature 98.4 F Pulse Rate 98 93 Respiratory 22 16 Rate Blood Pressure 142/88 129/95 O2 Sat by Pulse 97 92 L Oximetry Medical Decision Making - Lab Data Result diagrams: 06/07/22 00:27 06/07/22 00:27 Lab Results 06/07/22 06/07/22 06/07/22 Range/Units 00:27 00:27 00:27 WBC 7.2 (3.8-10.6) k/uL RBC 4.54 (4.30-5.90) m/uL Hgb 14.1 (13.0-17.5) gm/dL Hct 40.7 (39.0-53.0) % MCV 89.7 (80.0-100.0) fL MCH 31.0 (25.0-35.0) pg MCHC 34.6 (31.0-37.0) g/dL RDW 13.8 (11.5-15.5) % Plt Count 243 (150-450) k/uL MPV 8.0 Neutrophils % 49 % Lymphocytes % 38 % Monocytes % 5 % Eosinophils % 4 % Basophils % 1 % Neutrophils # 3.5 (1.3-7.7) k/uL Lymphocytes # 2.8 (1.0-4.8) k/uL Monocytes # 0.4 (0-1.0) k/uL Eosinophils # 0.3 (0-0.7) k/uL Basophils # 0.1 (0-0.2) k/uL Sodium 137 (137-145) mmol/L Potassium 3.9 (3.5-5.1) mmol/L Chloride 106 (98-107) mmol/L Carbon Dioxide 25 (22-30) mmol/L Anion Gap 6 mmol/L BUN 18 (9-20) mg/dL Creatinine 0.87 (0.66-1.25) mg/dL Est GFR (CKD-EPI)AfAm >90 (>60 ml/min/1.73 sqM) Est GFR (CKD-EPI)NonAf >90 (>60 ml/min/1.73 sqM) Glucose 96 (74-99) mg/dL Calcium 9.6 (8.4-10.2) mg/dL Troponin I <0.012 (0.000-0.034) ng/mL Disposition Clinical Impression: Chest pain Disposition: ADMITTED IP TO THIS HOSP Condition: Fair Referrals: Nik Paula MD [Primary Care Provider] - 1-2 days Decision Time: 01:48
--- NOTE | 2022-06-07 00:42 | XR ---
EXAMINATION TYPE: XR chest 1V portable DATE OF EXAM: 06/07/2022 COMPARISON: 06/05/2022 HISTORY: Chest pain TECHNIQUE: FINDINGS: Heart is normal. Lungs are clear. Diaphragm is normal. Bony thorax is intact. IMPRESSION: Normal chest. No adverse change
[2022-06-07 01:14] LABS: Basophils # (A) 0.1 k/uL (0-0.2); Basophils % (A) 1 %; Eosinophils # (A) 0.3 k/uL (0-0.7); Eosinophils % (A) 4 %; HCT 40.7 % (39.0-53.0); HGB 14.1 gm/dL (13.0-17.5); Lymphocytes # (A) 2.8 k/uL (1.0-4.8); Lymphocytes % (A) 38 %; MCHC 34.6 g/dL (31.0-37.0); MCV 89.7 fL (80.0-100.0); Monocytes # (A) 0.4 k/uL (0-1.0); Monocytes % (A) 5 %; Neutrophils # (A) 3.5 k/uL (1.3-7.7); Neutrophils % (A) 49 %; Platelet Count 243 k/uL (150-450); RBC 4.54 m/uL (4.30-5.90); RDW 13.8 % (11.5-15.5); WBC 7.2 k/uL (3.8-10.6)
[2022-06-07] MEDS ORDERED: ASPIRIN 81 MG PO STA (01:23)
[2022-06-07] MEDS ORDERED: NITROGLYCERIN SL TABS 0.4 MG TAB SUBLINGUAL STA (01:23)
[2022-06-07 01:27] LABS: African American GFR (CKD) >90 (>60 ml/min/1.73 sqM); Anion Gap 6 mmol/L; Blood Urea Nitrogen 18 mg/dL (9-20); Calcium 9.6 mg/dL (8.4-10.2); Carbon Dioxide 25 mmol/L (22-30); Chloride 106 mmol/L (98-107); Glucose 96 mg/dL (74-99); Non-African American GFR(CKD) >90 (>60 ml/min/1.73 sqM); Potassium 3.9 mmol/L (3.5-5.1); Sodium 137 mmol/L (137-145)
[2022-06-07] MEDS ORDERED: NITROGLYCERIN SL TABS 0.4 MG TAB SUBLINGUAL PRN (01:46)
[2022-06-07 07:52] VITALS: TEMP 97.7
--- NOTE | 2022-06-07 08:35 | P.CRDCN ---
History of Present Illness Consult date: 06/07/22 Chief complaint: Chest pain History of present illness: This is a 41-year-old gentleman with a past medical history significant for hypertension who just was discharged from the hospital yesterday after he presented with chest discomfort and ruled out for acute coronary event. He went home and he was in the pocket with his son when he started expressing discomfort again and decided to come to the hospital. He stated that he is having ongoing chest discomfort right now about 5/10 in intensity as a sharp/dull kind of discomfort with no radiation to the arms or neck or shoulders or back and no associated symptoms of shortness of breath but he does have some sweating. No dizziness or lightheadedness and no presyncope or syncope. The workup this time revealed sinus rhythm with no ST or T-wave abnormalities but nonspecific changes. His cardiac enzymes are unremarkable. But because he continues to have ongoing chest discomfort I'm going to pursue with a heart catheterization to rule out severe CAD. Also going to obtain a d-dimer before the heart catheterization to rule out pulmonary embolism. Meanwhile we'll keep the patient, Past Medical History Past Medical History: Coronary Artery Disease (CAD) Additional Past Medical History / Comment(s): chronic knee pain, back pain, RBBB, elevated heart rate. History of Any Multi-Drug Resistant Organisms: MRSA Date of last positivie culture/infection: 2008 MDRO Source:: thumb Past Surgical History: Appendectomy, Back Surgery, Orthopedic Surgery Additional Past Surgical History / Comment(s): l4-5 fusion march 2020,l4-s1 fusion in 12/2021, carpel tunnnel release, vascectomy, skin graft knee surg x4, right hip surgery. lower bowel surgery Past Anesthesia/Blood Transfusion Reactions: No Reported Reaction Past Psychological History: Anxiety, Depression, PTSD Additional Psychological History / Comment(s): Pt resides with his spouse and 2 children. He is independent. He is retired. He served in the . Smoking Status: Current every day smoker Past Alcohol Use History: Occasional Additional Past Alcohol Use History / Comment(s): Patient was a smoker of half a pack per day for 10 years and quit in december 2019, and occasionally still smokes one or two. He denies any marijuana or street drug use. He drinks alcohol socially. He currently lives at home with his . He served in the [employer] and was in combat in [place]. Past Drug Use History: None Reported - Past Family History Father Family Medical History: No Reported History Additional Family Medical History / Comment(s): Father is alive at age 61 was no major medical problems. Mother Family Medical History: No Reported History Additional Family Medical History / Comment(s): Mother is alive at age 56 with history of spinal surgeries and neurological disorders. one sister with no major medical problems. Patient has 1 son and 1 daughter with no major medical problems. Medications and Allergies Home Medications Medication Instructions Recorded Confirmed Type PARoxetine HCL [Paxil] 60 mg PO DAILY 08/22/19 06/05/22 History traZODone HCL 150 mg PO HS 10/09/20 06/07/22 History Ibuprofen [Motrin] 800 mg PO Q8H PRN 11/23/21 06/07/22 History Metoprolol Tartrate [Lopressor] 12.5 mg PO BID 11/23/21 06/07/22 History Gabapentin 600 mg PO TID PRN 06/05/22 06/07/22 History HYDROcodone/APAP 10-325MG [[place] 1 tab PO Q6H PRN 06/05/22 06/07/22 History 10-325] Meloxicam [Mobic] 15 mg PO HS 06/05/22 06/07/22 History Prazosin HCl 6 mg PO HS 06/05/22 06/07/22 History Famotidine [Pepcid] 20 mg PO BID #60 tablet 06/06/22 06/07/22 Rx Allergies Allergy/AdvReac Type Severity Reaction Status Date / Time ketorolac tromethamine Allergy Rash/Hives/Swelling Verified 06/07/22 00:03 [From Toradol] at injection site venom-honey bee Allergy Anaphylaxis Verified 06/07/22 00:03 [bee venom (honey bee)] naproxen AdvReac Nausea & Verified 06/07/22 00:03 Vomiting & Diarrhea Physical Exam Vitals: Vital Signs Temp Pulse Pulse Resp BP BP BP 06/07/22 08:01 06/07/22 07:00 97.7 F 77 18 133/81 06/07/22 03:14 97.6 F 83 18 144/96 06/07/22 01:38 93 16 129/95 06/07/22 00:00 98.4 F 98 22 142/88 Pulse Ox 06/07/22 08:01 96 06/07/22 07:00 96 06/07/22 03:14 96 06/07/22 01:38 92 L 06/07/22 00:00 97 Intake and Output 06/06/22 06/07/22 06/07/22 22:59 06:59 14:59 Other: # Voids 2 Weight 117.934 kg - Constitutional General appearance: no acute distress - Respiratory Respiratory: bilateral: CTA - Cardiovascular Rhythm: regular Results 06/07/22 00:27 06/07/22 00:27 Cardiac Enzymes 06/07/22 06/07/22 06/07/22 Range/Units 00:27 03:12 05:34 Troponin I <0.012 <0.012 <0.012 (0.000-0.034) ng/mL CBC 06/07/22 Range/Units 00:27 WBC 7.2 (3.8-10.6) k/uL RBC 4.54 (4.30-5.90) m/uL Hgb 14.1 (13.0-17.5) gm/dL Hct 40.7 (39.0-53.0) % Plt Count 243 (150-450) k/uL Comprehensive Metabolic Panel 06/07/22 Range/Units 00:27 Sodium 137 (137-145) mmol/L Potassium 3.9 (3.5-5.1) mmol/L Chloride 106 (98-107) mmol/L Carbon Dioxide 25 (22-30) mmol/L BUN 18 (9-20) mg/dL Creatinine 0.87 (0.66-1.25) mg/dL Glucose 96 (74-99) mg/dL Calcium 9.6 (8.4-10.2) mg/dL Current Medications Generic Name Dose Route Start Last Admin Trade Name Freq PRN Reason Stop Dose Admin Aspirin 325 mg 06/08/22 09:00 Aspirin 325 Mg Tab PO DAILY JANIE Nitroglycerin 0.4 mg 06/07/22 01:46 Nitroglycerin Sl Tabs 0.4 Mg Tab SUBLINGUAL Q5M PRN Chest Pain Intake and Output 06/06/22 06/07/22 06/07/22 22:59 06:59 14:59 Other: # Voids 2 Weight 117.934 kg 06/07/22 00:27 06/07/22 00:27 Assessment and Plan Assessment: Assessment #1 ongoing chest discomfort #2 hypertension Plan #1 rule out pulmonary embolism. Obtain d-dimer #2 proceed with coronary angiogram
[2022-06-07] MEDS ORDERED: GABAPENTIN 300 MG CAP PO PRN (09:59)
[2022-06-07] MEDS ORDERED: HYDROcodone/APAP 10-325MG 1 EACH TAB PO PRN (09:59)
--- NOTE | 2022-06-07 10:52 | P.HPIM ---
History of Present Illness Patient is a pleasant 41-year-old black male with history of hypertension came in with compensative chest pain patient came to ER yesterday and has been discharged for his son's but they've. Patient given with chest pain yesterday w hich continued which is constant by status 10 in severity nonradiating pressure- like sensation left side of the chest, and is pleuritic versus or shortness of breath lightheadedness but does have diaphoresis not associated with food EKG did not show any acute ST-T wave changes chest x-ray is within normal limits troponins were negative patient was evaluated by cardiology and cardiology recommended cardiac catheterization and patient will undergo cardiac catheterization today. Because the pleuritic nature of chest pain d-dimer was opted which was within normal limits. No pneumonia on the chest x-ray patient doesn't have any fever and leukocytosis. REVIEW OF SYSTEMS: CONSTITUTIONAL: No fever, no malaise, no fatigue. HEENT: No recent visual problems or hearing problems. Denied any sore throat. CARDIOVASCULAR: No orthopnea, PND, no palpitations, no syncope. PULMONARY: No shortness of breath, no cough, no hemoptysis. GASTROINTESTINAL: No diarrhea, no nausea, no vomiting, no abdominal pain. NEUROLOGICAL: No headaches, no weakness, no numbness. HEMATOLOGICAL: Denies any bleeding or petechiae. GENITOURINARY: Denies any burning micturition, frequency, or urgency. MUSCULOSKELETAL/RHEUMATOLOGICAL: Denies any joint pain, swelling, or any muscle pain. ENDOCRINE: Denies any polyuria or polydipsia. The rest of the 14-point review of systems is negative. PHYSICAL EXAMINATION: GENERAL: The patient is alert and oriented x3, not in any acute distress. Well developed, well nourished. HEENT: Pupils are round and equally reacting to light. EOMI. No scleral icterus. No conjunctival pallor. Normocephalic, atraumatic. No pharyngeal erythema. No thyromegaly. CARDIOVASCULAR: S1 and S2 present. No murmurs, rubs, or gallops. PULMONARY: Chest is clear to auscultation, no wheezing or crackles. ABDOMEN: Soft, nontender, nondistended, normoactive bowel sounds. No palpable or ganomegaly. MUSCULOSKELETAL: No joint swelling or deformity. EXTREMITIES: No cyanosis, clubbing, or pedal edema. NEUROLOGICAL: Gross neurological examination did not reveal any focal deficits. SKIN: No rashes. 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 History of Any Multi-Drug Resistant Organisms: MRSA Date of last positivie culture/infection: 2008 MDRO Source:: thumb Past Surgical History: Appendectomy, Back Surgery, Orthopedic Surgery Additional Past Surgical History / Comment(s): l4-5 fusion march 2020,l4-s1 fusion in 12/2021, carpel tunnnel release, vascectomy, skin graft knee surg x4, right hip surgery. lower bowel surgery Past Anesthesia/Blood Transfusion Reactions: No Reported Reaction Past Psychological History: Anxiety, Depression, PTSD Additional Psychological History / Comment(s): Pt resides with his spouse and 2 children. He is independent. He is retired. He served in the . Smoking Status: Current every day smoker Past Alcohol Use History: Occasional Additional Past Alcohol Use History / Comment(s): Patient was a smoker of half a pack per day for 10 years and quit in december 2019, and occasionally still smokes one or two. He denies any marijuana or street drug use. He drinks alcohol socially. He currently lives at home with his . 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 Past Drug Use History: None Reported - Past Family History Father Family Medical History: No Reported History Additional Family Medical History / Comment(s): Father is alive at age 61 was no major medical problems. Mother Family Medical History: No Reported History Additional Family Medical History / Comment(s): Mother is alive at age 56 with history of spinal surgeries and neurological disorders. one sister with no major medical problems. Patient has 1 son and 1 daughter with no major medical problems. Medications and Allergies Home Medications Medication Instructions Recorded Confirmed Type PARoxetine HCL [Paxil] 60 mg PO DAILY 08/22/19 06/05/22 History traZODone HCL 150 mg PO HS 10/09/20 06/07/22 History Ibuprofen [Motrin] 800 mg PO Q8H PRN 11/23/21 06/07/22 History Metoprolol Tartrate [Lopressor] 12.5 mg PO BID 11/23/21 06/07/22 History Gabapentin 600 mg PO TID PRN 06/05/22 06/07/22 History HYDROcodone/APAP 10-325MG [[place] 1 tab PO Q6H PRN 06/05/22 06/07/22 History 10-325] Meloxicam [Mobic] 15 mg PO HS 06/05/22 06/07/22 History Prazosin HCl 6 mg PO HS 06/05/22 06/07/22 History Famotidine [Pepcid] 20 mg PO BID #60 tablet 06/06/22 06/07/22 Rx Allergies Allergy/AdvReac Type Severity Reaction Status Date / Time ketorolac tromethamine Allergy Rash/Hives/Swelling Verified 06/07/22 00:03 [From Toradol] at injection site venom-honey bee Allergy Anaphylaxis Verified 06/07/22 00:03 [bee venom (honey bee)] naproxen AdvReac Nausea & Verified 06/07/22 00:03 Vomiting & Diarrhea Physical Exam Vitals: Vital Signs Temp Pulse Pulse Resp BP BP BP 06/07/22 08:01 06/07/22 07:00 97.7 F 77 18 133/81 06/07/22 03:14 97.6 F 83 18 144/96 06/07/22 01:38 93 16 129/95 06/07/22 00:00 98.4 F 98 22 142/88 Pulse Ox 06/07/22 08:01 96 06/07/22 07:00 96 06/07/22 03:14 96 06/07/22 01:38 92 L 06/07/22 00:00 97 Intake and Output 06/06/22 06/07/22 06/07/22 22:59 06:59 14:59 Other: # Voids 2 Weight 117.934 kg Results CBC & Chem 7: 06/07/22 00:27 06/07/22 00:27 Thrombosis Risk Factor Assmnt - Choose All That Apply Any of the Below Risk Factors Present?: Yes Each Factor Represents 1 point: Obesity (BMI >25) Other Risk Factors: No Other congenital or acquired thrombophilia - If yes, enter type in comment: No Thrombosis Risk Factor Assessment Total Risk Factor Score: 1 Thrombosis Risk Factor Assessment Level: Low Risk
[2022-06-07] MEDS ORDERED: VERAPAMIL 2.5 MG/ML 2 ML AMP ONE (10:56)
[2022-06-07] MEDS ORDERED: SODIUM CHLORIDE 0.9% 1,000 ML IV ONE (11:20)
[2022-06-07] MEDS ORDERED: MIDAZOLAM 2 MG/2 ML VIAL IV ONE (11:24)
[2022-06-07] MEDS ORDERED: LIDOCAINE 1% INJ 10MG/ML (5 ML VIAL-PF) SQ ONE (11:26)
[2022-06-07] MEDS ORDERED: VERAPAMIL SYRINGE (5 MG/10 ML) INTRAARTER ONE (11:27)
[2022-06-07] MEDS ORDERED: HEPARIN SODIUM 1,000 UN/ML (10ML VL) IV ONE (11:31)
--- NOTE | 2022-06-07 11:37 | P.DS ---
Providers Date of admission: 06/07/22 01:46 Attending physician: Hardik Leger Consults: 06/07/22 01:46 Consult Physician Urgent Consulting Provider: Silvino Kennedy Consult Reason/Comments: chest pain Do you want consulting provider notified?: Yes Primary care physician: Nik Paula Hospital Course: Please refer to HPI for further details if cleared by cardiology and if cardiac catheterization is negative patient will be discharged today. Patient Condition at Discharge: Fair Plan - Discharge Summary New Discharge Prescriptions: No Action PARoxetine HCL [Paxil] 60 mg PO DAILY traZODone HCL 150 mg PO HS Ibuprofen [Motrin] 800 mg PO Q8H PRN PRN Reason: Pain Gabapentin 600 mg PO TID PRN PRN Reason: Pain HYDROcodone/APAP 10-325MG [[place] 10-325] 1 tab PO Q6H PRN PRN Reason: Pain Meloxicam [Mobic] 15 mg PO HS Famotidine [Pepcid] 20 mg PO BID #60 tablet Metoprolol Tartrate [Lopressor] 12.5 mg PO BID Prazosin HCl 6 mg PO HS Discharge Medication List PARoxetine HCL [Paxil] 60 mg PO DAILY 08/22/19 [History] traZODone HCL 150 mg PO HS 10/09/20 [History] Ibuprofen [Motrin] 800 mg PO Q8H PRN 11/23/21 [History] Metoprolol Tartrate [Lopressor] 12.5 mg PO BID 11/23/21 [History] Gabapentin 600 mg PO TID PRN 06/05/22 [History] HYDROcodone/APAP 10-325MG [[place] 10-325] 1 tab PO Q6H PRN 06/05/22 [History] Meloxicam [Mobic] 15 mg PO HS 06/05/22 [History] Prazosin HCl 6 mg PO HS 06/05/22 [History] Famotidine [Pepcid] 20 mg PO BID #60 tablet 06/06/22 [Rx] Follow up Appointment(s)/Referral(s): Nik Paula MD [Primary Care Provider] - 3 Days Discharge Disposition: HOME SELF-CARE
[2022-06-07] MEDS ORDERED: LIDOCAINE 1% INJ 10MG/ML (30 ML VIAL-PF) SQ ONE (11:45)
[2022-06-07] MEDS ORDERED: IOPAMIDOL-370 100ML BTL INJ ONE (11:58)
[2022-06-07] MEDS ORDERED: RX INFO: IV CONTRAST WAS GIVEN 1 EACH MISC MISCELLANE PRN (12:04)
--- NOTE | 2022-06-07 12:09 | P.PCN ---
Date of Procedure: 06/07/22 Operative Findings: CARDIAC CATHETERIZATION PERFORMING PHYSICIAN: Silvino Kennedy MD, RPVI PROCEDURE PERFORMED: 1. Selective right and left coronary angiogram 2. Left heart catheterization INDICATION: This is a 41-year-old gentleman with hypertension who presented to the hospital yesterday with a chest discomfort and he was discharged after he was ruled out for acute coronary event. This time he presented back to the hospital complaining of chest discomfort and continues to have ongoing chest discomfort. In the light of that heart catheterization was advised. COMPLICATION: None APPROACH: Right radial artery and right common femoral artery LEVEL OF SEDATION: Moderate with a sedation length of 15 minutes PROCEDURE DESCRIPTION: After obtaining an informed consent, the patient was brought to cardiac veterinary laboratory technician. Local anesthesia was performed using lidocaine subcutaneously. The right radial artery was cannulated using Seldinger technique, the guidewire passed easily, following that we advanced a 5-Palest[place] sheath dilator assembly, the wire and dilator were removed and sheath was flushed. During the procedure I had to axis the right common femoral artery and I placed 5-Palest[place] sheath Following that, 2 mg of verapamil along with 5000 unit heparin were given. Selective right coronary angiogram was performed using JR4 catheter from right femoral artery approach. Selective left coronary angiogram was performed using JL 3.5 from right radial approach. I have Hartstein engaging the RCA from right radial approach because of extreme tortuosity and difficulty to torque the catheter. Following that we did left heart catheterization using 6-[place] pigtail catheter. The procedure was completed there was no complication. SELECTIVE CORONARY ANGIOGRAM: The right coronary artery: Is a large caliber vessel and a dominant vessel. Upon engaging the right coronary artery the patient has severe ostial RCA spasm relieved by nitroglycerin. The RCA otherwise is free from any atherosclerosis. Left main: Is angiographically normal. The long left main. Bifurcates into a LCx and LAD The left circumflex: Is a large caliber vessel and nondominant vessel. The LCx is angiographically normal and gives rises into first and second obtuse marginal branches and both appeared to be angiographically normal The left anterior descending artery: Is a large caliber vessel. The LAD is angiographically normal. Gives rises into the first and second diagonal branches both appeared to be angiographically normal HEMODYNAMICS: The LVEDP was about 10 mmHg with very mild gradient across aortic valve CONCLUSION: 1. Normal coronary angiogram 2. Severe coronary vasospasm resolved by IC nitroglycerin POSTPROCEDURE MANAGEMENT: Add oral nitrates the current medical regimen
[2022-06-07] MEDS ORDERED: SODIUM CHLORIDE 0.9% 1,000 ML IV SCH (12:15)
[2022-06-07 12:40] VITALS: RESP 16
[2022-06-07 16:48] VITALS: BP 150/91; PULSE 92
[2022-06-07] MEDS ORDERED: METOPROLOL TARTRATE 12.5 MG TAB PO SCH (21:00)
[2022-06-07] MEDS ORDERED: MELOXICAM 7.5 MG TAB PO SCH (21:00)
[2022-06-07] MEDS ORDERED: FAMOTIDINE 20 MG TAB PO SCH (21:00)
[2022-06-07] MEDS ORDERED: traZODone HCL 50 MG TAB PO SCH (21:00)
[2022-06-07] MEDS ORDERED: PRAZOSIN 1 MG CAP PO SCH (21:00)
[2022-06-08] MEDS ORDERED: ISOSORBIDE MONONITRATE ER 15 MG TAB PO SCH (09:00)
[2022-06-08] MEDS ORDERED: PARoxetine 20 MG TAB PO SCH (09:00)
[2022-06-08] MEDS ORDERED: ASPIRIN 325 MG TAB PO SCH (09:00)
== END 2022-06-07 18:51 | disposition home or self-care (01) ==
LOC: EC 23:47 → 6NMEDSUR 06-07 01:46
PROVIDERS: ADMIT Hospitalist; ATTEND Hospitalist
DX: I20.0 Unstable angina (principal); I10 Essential (primary) hypertension; Z79.1 Long term (current) use of non-steroidal anti-inflammatories (NSAID); Z79.899 Other long term (current) drug therapy; Z88.8 Allergy status to other drugs, medicaments and biological substances; Z88.6 Allergy status to analgesic agent; Z91.030 Bee allergy status; I25.10 Atherosclerotic heart disease of native coronary artery without angina pectoris; G89.29 Other chronic pain; M25.569 Pain in unspecified knee; I45.10 Unspecified right bundle-branch block; Z86.14 Personal history of Methicillin resistant Staphylococcus aureus infection; Z90.49 Acquired absence of other specified parts of digestive tract; Z98.1 Arthrodesis status; Z98.52 Vasectomy status; Z98.890 Other specified postprocedural states; F41.9 Anxiety disorder, unspecified; F43.10 Post-traumatic stress disorder, unspecified; Z87.891 Personal history of nicotine dependence; Z82.0 Family history of epilepsy and other diseases of the nervous system
CPT/HCPCS: 99285; 36415; 93005; 93458; 85379; 80048; 84484; 85025; 71045; G0378; C1769 ×3; C1894 ×2; J2250; J2001 ×2; J1644; Q9967

== ENCOUNTER → 2022-07-09 | Outpatient (CLI) | payer MEDICARE ==
--- NOTE | 2022-07-10 09:15 | XR ---
EXAMINATION TYPE: XR lumbosacral spine min 4V DATE OF EXAM: 07/09/2022 CLINICAL HISTORY: pain COMPARISON: 03/24/2022 TECHNIQUE: Frontal, lateral, and oblique images of the lumbar spine are obtained. FINDINGS: Postoperative changes of lumbar fusion L4-5 and L5-S1. Persistent grade 1 anterolisthesis L 4 and L5 measuring 7 mm. Intervertebral spacer is in place. Pedicular screws are noted. Normal alignm ent at L5-S1. IMPRESSION: Stable postoperative alignment
== END | disposition home or self-care (01) ==
LOC: RADXRMAIN 15:28
PROVIDERS: ATTEND Nurse Practitioner
DX: M43.16 Spondylolisthesis, lumbar region (principal); Z98.1 Arthrodesis status
CPT/HCPCS: 72110

== ENCOUNTER 2022-07-11 23:10 | Emergency (ER) | payer MEDICARE ==
[2022-07-11 23:25] VITALS: TEMP 98.1
--- NOTE | 2022-07-12 00:36 | XR ---
EXAMINATION TYPE: XR chest 2V DATE OF EXAM: 07/11/2022 COMPARISON: 06/05/2022 HISTORY: Chest pain TECHNIQUE: FINDINGS: There is mild coarsening of interstitial markings. Heart size is normal. There are no hilar masses. The thorax is intact IMPRESSION: Mild interstitial increased density similar to old exam. No pulmonary consolidation or he art failure.
--- NOTE | 2022-07-12 00:58 | ED ---
General Adult HPI <Chi Wade Monse - Last Filed: 07/12/22 02:17> - General Source: patient, RN notes reviewed, old records reviewed Mode of arrival: ambulatory - History of Present Illness -: hour(s) (5) Location: chest Radiation: extremity (left arm), distal Severity scale (1-10): 8 Quality: other (spasm) Improves with: none Associated Symptoms: denies other symptoms Treatments Prior to Arrival: none <Caleb Daniel - Last Filed: 07/12/22 03:32> - General Chief complaint: Chest Pain Stated complaint: Chest Pain Time Seen by Provider: 07/12/22 00:46 - History of Present Illness Initial comments: 41-year-old male, alert and oriented, presents with complaints of chest pain that started at 7:30 this evening while in [place]. Patient states the pain gets worse when he is talking or moving and radiates down his left arm. He states that he was diagnosed with coronary artery spasms last m [facility] by Dr Patel and put on isosorbide. (Caleb Daniel) - Related Data Home Medications Medication Instructions Recorded Confirmed PARoxetine HCL [Paxil] 60 mg PO DAILY 08/22/19 06/07/22 traZODone HCL 150 mg PO HS 10/09/20 06/07/22 Ibuprofen [Motrin] 800 mg PO Q8H PRN 11/23/21 06/07/22 Metoprolol Tartrate [Lopressor] 12.5 mg PO BID 11/23/21 06/07/22 Gabapentin 600 mg PO TID PRN 06/05/22 06/07/22 HYDROcodone/APAP 10-325MG [[place] 1 tab PO Q6H PRN 06/05/22 06/07/22 10-325] Meloxicam [Mobic] 15 mg PO HS 06/05/22 06/07/22 Prazosin HCl 6 mg PO HS 06/05/22 06/07/22 Previous Rx's Medication Instructions Recorded Famotidine [Pepcid] 20 mg PO BID #60 tablet 06/06/22 Isosorbide Mononitrate ER [Imdur] 30 mg PO DAILY #30 tab 06/08/22 Allergies Allergy/AdvReac Type Severity Reaction Status Date / Time ketorolac tromethamine Allergy Rash/Hives/Swelling Verified 07/11/22 23:25 [From Toradol] at injection site venom-honey bee Allergy Anaphylaxis Verified 07/11/22 23:25 [bee venom (honey bee)] naproxen AdvReac Nausea & Verified 07/11/22 23:25 Vomiting & Diarrhea Review of Systems ROS Other: All systems not noted in ROS Statement are negative. <Chi Wade - Last Filed: 07/12/22 02:17> ROS Other: All systems not noted in ROS Statement are negative. <Caleb Daniel - Last Filed: 07/12/22 03:32> ROS Statement: Those systems with pertinent positive or pertinent negative responses have been documented in the HPI. Past Medical History Past Medical History: Coronary Artery Disease (CAD) Additional Past Medical History / Comment(s): chronic knee pain, back pain, RBBB, elevated heart rate. History of Any Multi-Drug Resistant Organisms: MRSA Date of last positivie culture/infection: 2008 MDRO Source:: thumb Past Surgical History: Appendectomy, Back Surgery, Orthopedic Surgery Additional Past Surgical History / Comment(s): l4-5 fusion march 2020,l4-s1 fusion in 12/2021, carpel tunnnel release, vascectomy, skin graft knee surg x4, right hip surgery. lower bowel surgery Past Anesthesia/Blood Transfusion Reactions: No Reported Reaction Past Psychological History: Anxiety, Depression, PTSD Smoking Status: Former smoker Past Alcohol Use History: Occasional Past Drug Use History: None Reported - Past Family History Father Family Medical History: No Reported History Additional Family Medical History / Comment(s): Father is alive at age 61 was no major medical problems. Mother Family Medical History: No Reported History Additional Family Medical History / Comment(s): Mother is alive at age 56 with history of spinal surgeries and neurological disorders. one sister with no major medical problems. Patient has 1 son and 1 daughter with no major medical problems. <Caleb Daniel - Last Filed: 07/12/22 03:32> General Exam Limitations: no limitations General appearance: alert, in no apparent distress Head exam: Present: atraumatic Neck exam: Present: normal inspection, full ROM. Absent: tenderness, meningismus Respiratory exam: Present: normal lung sounds bilaterally. Absent: respiratory distress, wheezes, rales, rhonchi, stridor, chest wall tenderness, accessory muscle use Cardiovascular Exam: Present: tachycardia, normal heart sounds GI/Abdominal exam: Present: soft Extremities exam: Present: full ROM, normal capillary refill. Absent: tenderness, pedal edema Neurological exam: Present: alert, oriented X3 Psychiatric exam: Present: normal affect, normal mood Skin exam: Present: warm, dry, normal color. Absent: cyanosis, diaphoretic, pallor <Caleb Daniel - Last Filed: 07/12/22 03:32> Course Vital Signs 07/11/22 07/12/22 07/12/22 23:22 01:33 01:42 Temperature 98.1 F Pulse Rate 101 H 88 84 Respiratory 18 14 16 Rate Blood Pressure 132/82 124/76 124/79 O2 Sat by Pulse 97 94 L 95 Oximetry 07/12/22 07/12/22 07/12/22 01:47 02:28 03:28 Temperature Pulse Rate 72 76 71 Respiratory 16 16 16 Rate Blood Pressure 125/78 123/77 O2 Sat by Pulse 95 97 Oximetry EKG Findings - EKG Comments: EKG Findings:: EKG shows sinus rhythm 88 159 QRS 110 QTc 4 to <Chi Wade - Last Filed: 07/12/22 02:17> Medical Decision Making - Lab Data Result diagrams: 07/12/22 01:33 <Chi Wade - Last Filed: 07/12/22 02:17> - Lab Data Result diagrams: 07/12/22 01:33 <Caleb Daniel - Last Filed: 07/12/22 03:32> - Medical Decision Making EKG shows sinus rhythm with a rate of 88, troponin negative at 0.012. CXR shows no change from old, no pulmonary consolidation of heart failure. Patient has no pain at this time. Patient did undergo a cardiac angiogram on June 07, showing severe coronary art ramón vasospasm which resolved with nitro. Case discussed with Dr. Wade, patient will be discharged home to follow up with his primary care doctor and logistics management specialist next week. Return to the emergen cy room with any new or concerning symptoms. Patient is agreeable to this plan of care. (Caleb Daniel) - Lab Data Lab Results 07/12/22 07/12/22 Range/Units 01:33 01:33 Sodium 140 (137-145) mmol/L Potassium 3.8 (3.5-5.1) mmol/L Chloride 104 (98-107) mmol/L Carbon Dioxide 25 (22-30) mmol/L Anion Gap 11 mmol/L BUN 19 (9-20) mg/dL Creatinine 0.99 (0.66-1.25) mg/dL Est GFR (CKD-EPI)AfAm >90 (>60 ml/min/1.73 sqM) Est GFR (CKD-EPI)NonAf >90 (>60 ml/min/1.73 sqM) Glucose 89 (74-99) mg/dL Calcium 9.5 (8.4-10.2) mg/dL Magnesium 1.9 (1.6-2.3) mg/dL Troponin I <0.012 (0.000-0.034) ng/mL Disposition <Chi Wade - Last Filed: 07/12/22 02:17> Is patient prescribed a controlled substance at d/c from ED?: No Time of Disposition: 02:55 <Caleb Daniel - Last Filed: 07/12/22 03:32> Clinical Impression: Chest pain Disposition: HOME SELF-CARE Condition: Good Instructions (If sedation given, give patient instructions): Chest Pain (ED) Additional Instructions: Continue taking your previously prescribed medications. Follow up with your primary care doctor and logistics management specialist next week. Return to the emergency room with any new or concerning symptoms. Referrals: Nik Paula MD [Primary Care Provider] - 1-2 days
[2022-07-12] MEDS: NITROGLYCERIN SL TABS 0.4 MG TAB SUBLINGUAL PRN ×2 (01:33→01:40)
[2022-07-12 01:43] VITALS: RESP 16
[2022-07-12 02:10] LABS: African American GFR (CKD) >90 (>60 ml/min/1.73 sqM); Anion Gap 11 mmol/L; Blood Urea Nitrogen 19 mg/dL (9-20); Calcium 9.5 mg/dL (8.4-10.2); Carbon Dioxide 25 mmol/L (22-30); Chloride 104 mmol/L (98-107); Glucose 89 mg/dL (74-99); Magnesium 1.9 mg/dL (1.6-2.3); Non-African American GFR(CKD) >90 (>60 ml/min/1.73 sqM); Potassium 3.8 mmol/L (3.5-5.1); Sodium 140 mmol/L (137-145)
[2022-07-12 03:29] VITALS: BP 123/77; PULSE 71
== END 2022-07-12 03:28 | disposition home or self-care (01) ==
LOC: EC 23:10
DX: R07.9 Chest pain, unspecified (principal); F41.9 Anxiety disorder, unspecified; F32.A Depression, unspecified; H81.10 Benign paroxysmal vertigo, unspecified ear; Z87.891 Personal history of nicotine dependence; Z88.6 Allergy status to analgesic agent; Z91.038 Other insect allergy status
CPT/HCPCS: 36415; 71046; 80048; 83735; 84484; 93005; 99284

== ENCOUNTER 2022-08-01 22:06 | Emergency (ER) | payer MEDICARE ==
[2022-08-01 22:19] VITALS: BP 138/87; RESP 16; TEMP 97.4
[2022-08-02] MEDS ORDERED: MORPHINE SULFATE 4 MG/ML SYRINGE IV STA (02:06)
[2022-08-02] MEDS ORDERED: SODIUM CHLORIDE 0.9% 500 ML 500 ML IV STA (02:06)
[2022-08-02 02:16] VITALS: PULSE 71
--- NOTE | 2022-08-02 02:48 | XR ---
EXAMINATION TYPE: XR chest 1V portable DATE OF EXAM: 08/02/2022 COMPARISON: 07/11/2022 HISTORY: Chest pain TECHNIQUE: FINDINGS: There is no heart failure nor confluent pneumonic infiltrate. Costophrenic angles are clear . Bony thorax is intact. There are chest leads. IMPRESSION: No active cardiopulmonary disease. Normal heart. No change.
[2022-08-02 02:54] LABS: Basophils # (A) 0.1 k/uL (0-0.2); Basophils % (A) 1 %; Eosinophils # (A) 0.4 k/uL (0-0.7); Eosinophils % (A) 5 %; HCT 39.7 % (39.0-53.0); HGB 13.4 gm/dL (13.0-17.5); Lymphocytes # (A) 3.4 k/uL (1.0-4.8); Lymphocytes % (A) 44 %; MCH 30.3 pg (25.0-35.0); MCHC 33.8 g/dL (31.0-37.0); MCV 89.6 fL (80.0-100.0); Mean Platelet Volume 8.2; Monocytes # (A) 0.4 k/uL (0-1.0); Monocytes % (A) 5 %; Neutrophils # (A) 3.3 k/uL (1.3-7.7); Neutrophils % (A) 43 %; Platelet Count 227 k/uL (150-450); RBC 4.44 m/uL (4.30-5.90); RDW 13.1 % (11.5-15.5); WBC 7.6 k/uL (3.8-10.6)
[2022-08-02 03:07] LABS: ALT 34 U/L (4-49); AST 35 U/L (17-59); African American GFR (CKD) >90 (>60 ml/min/1.73 sqM); Albumin 4.3 g/dL (3.5-5.0); Alkaline Phosphatase 62 U/L (38-126); Anion Gap 12 mmol/L; Blood Urea Nitrogen 21 mg/dL (9-20); Calcium 9.9 mg/dL (8.4-10.2); Carbon Dioxide 22 mmol/L (22-30); Chloride 104 mmol/L (98-107); Glucose 101 mg/dL (74-99); Lipase 102 U/L (23-300); Magnesium 1.9 mg/dL (1.6-2.3); Non-African American GFR(CKD) >90 (>60 ml/min/1.73 sqM); Potassium 3.7 mmol/L (3.5-5.1); Sodium 138 mmol/L (137-145); Total Bilirubin 0.3 mg/dL (0.2-1.3); Total Protein 6.8 g/dL (6.3-8.2)
--- NOTE | 2022-08-02 03:18 | ED ---
Chest Pain HPI - General Chief Complaint: Chest Pain Stated Complaint: Chest Pain,SOB Time Seen by Provider: 08/02/22 01:46 Source: patient, RN notes reviewed, old records reviewed Mode of arrival: ambulatory Limitations: no limitations - History of Present Illness Initial Comments: This is a 41-year-old who is well-known to our facility today patient comes in to evaluation for chest pain. Patient is complaining standing chest pain here today. No nausea no vomiting no fevers. Symptoms began tonight he noted his blood pressure was thought that made him more. Patient's presenting today for evaluation of chest. MD Complaint: chest pain -: hour(s) Onset: during rest, during exertion Pain Location: left chest Pain Radiation: none Severity: moderate Severity scale (1-10): 4 Consistency: constant Improves With: nothing Worsens With: nothing Other Symptoms: palpitations Treatments Prior to Arrival: none - Related Data Home Medications Medication Instructions Recorded Confirmed PARoxetine HCL [Paxil] 60 mg PO DAILY 08/22/19 06/07/22 traZODone HCL 150 mg PO HS 10/09/20 06/07/22 Ibuprofen [Motrin] 800 mg PO Q8H PRN 11/23/21 06/07/22 Metoprolol Tartrate [Lopressor] 12.5 mg PO BID 11/23/21 06/07/22 Gabapentin 600 mg PO TID PRN 06/05/22 06/07/22 HYDROcodone/APAP 10-325MG [[place] 1 tab PO Q6H PRN 06/05/22 06/07/22 10-325] Meloxicam [Mobic] 15 mg PO HS 06/05/22 06/07/22 Prazosin HCl 6 mg PO HS 06/05/22 06/07/22 Previous Rx's Medication Instructions Recorded Famotidine [Pepcid] 20 mg PO BID #60 tablet 06/06/22 Isosorbide Mononitrate ER [Imdur] 30 mg PO DAILY #30 tab 06/08/22 Allergies Allergy/AdvReac Type Severity Reaction Status Date / Time ketorolac tromethamine Allergy Rash/Hives/Swelling Verified 07/11/22 23:25 [From Toradol] at injection site venom-honey bee Allergy Anaphylaxis Verified 07/11/22 23:25 [bee venom (honey bee)] naproxen AdvReac Nausea & Verified 07/11/22 23:25 Vomiting & Diarrhea Review of Systems ROS Statement: Those systems with pertinent positive or pertinent negative responses have been documented in the HPI. ROS Other: All systems not noted in ROS Statement are negative. Past Medical History Past Medical History: Coronary Artery Disease (CAD) Additional Past Medical History / Comment(s): chronic knee pain, back pain, RBBB, elevated heart rate. History of Any Multi-Drug Resistant Organisms: MRSA Date of last positivie culture/infection: 2008 MDRO Source:: thumb Past Surgical History: Appendectomy, Back Surgery, Orthopedic Surgery Additional Past Surgical History / Comment(s): l4-5 fusion march 2020,l4-s1 fusion in 12/2021, carpel tunnnel release, vascectomy, skin graft knee surg x4, right hip surgery. lower bowel surgery Past Anesthesia/Blood Transfusion Reactions: No Reported Reaction Past Psychological History: Anxiety, Depression, PTSD Smoking Status: Former smoker Past Alcohol Use History: Occasional Past Drug Use History: None Reported - Past Family History Father Family Medical History: No Reported History Additional Family Medical History / Comment(s): Father is alive at age 61 was no major medical problems. Mother Family Medical History: No Reported History Additional Family Medical History / Comment(s): Mother is alive at age 56 with history of spinal surgeries and neurological disorders. one sister with no major medical problems. Patient has 1 son and 1 daughter with no major medical problems. General Exam Limitations: no limitations General appearance: alert, in no apparent distress Head exam: Present: atraumatic, normocephalic, normal inspection Eye exam: Present: normal appearance, PERRL, EOMI. Absent: scleral icterus, conjunctival injection, periorbital swelling ENT exam: Present: normal exam, mucous membranes moist Neck exam: Present: normal inspection. Absent: tenderness, meningismus, lymphadenopathy Respiratory exam: Present: normal lung sounds bilaterally. Absent: respiratory distress, wheezes, rales, rhonchi, stridor Cardiovascular Exam: Present: regular rate, normal rhythm, normal heart sounds. Absent: systolic murmur, diastolic murmur, rubs, gallop, clicks GI/Abdominal exam: Present: soft, normal bowel sounds. Absent: distended, tenderness, guarding, rebound, rigid Extremities exam: Present: normal inspection, full ROM, normal capillary refill. Absent: tenderness, pedal edema, joint swelling, calf tenderness Back exam: Present: normal inspection Neurological exam: Present: alert, oriented X3, CN II-XII intact Psychiatric exam: Present: normal affect, normal mood Skin exam: Present: warm, dry, intact, normal color. Absent: rash Course Vital Signs 08/01/22 08/02/22 22:16 02:16 Temperature 97.4 F L Pulse Rate 86 71 Respiratory 16 Rate Blood Pressure 138/87 O2 Sat by Pulse 97 Oximetry - Reevaluation(s) Reevaluation #1: 08/02/22 Medical record is reviewed Patient improved here in the emergency department Patient informed results and questions answered Chest Pain MDM - MDM 41 male to the ED c/o history. Patient has no acute findings here in the ER and can be discharged home Disposition Clinical Impression: Chest pain Disposition: HOME SELF-CARE Condition: Good Instructions (If sedation given, give patient instructions): Chest Pain (ED) Is patient prescribed a controlled substance at d/c from ED?: No Referrals: Nik Puala MD [Primary Care Provider] - 1-2 days Time of Disposition: 03:40
[2022-08-02] MEDS ORDERED: ACET/COD 300 MG/30 MG STARTER PACK 6 TAB BTL PO STA (03:30)
== END 2022-08-02 04:00 | disposition home or self-care (01) ==
LOC: EC 22:06
DX: R07.9 Chest pain, unspecified (principal); I25.10 Atherosclerotic heart disease of native coronary artery without angina pectoris; Z87.891 Personal history of nicotine dependence; Z88.8 Allergy status to other drugs, medicaments and biological substances; Z88.6 Allergy status to analgesic agent; Z91.030 Bee allergy status
CPT/HCPCS: 36415; 93005; 83880; 80053; 83690; 83735; 84484; 85025; 71045; 99285; 96374; 96361; J2270

== ENCOUNTER 2022-08-09 22:18 | Emergency (ER) | payer MEDICARE ==
[2022-08-10] MEDS ORDERED: diphenhydrAMINE 50 MG/ML 1 ML VIAL IVP STA (00:05)
[2022-08-10] MEDS ORDERED: SODIUM CHLORIDE 0.9% 1,000 ML IV ONE (00:07)
[2022-08-10] MEDS ORDERED: VALPROATE SODIUM 500 MG in SODIUM CHLORIDE 0.9% 100 ML IVPB STA (00:07)
[2022-08-10] MEDS ORDERED: METOCLOPRAMIDE 5 MG/ML 2 ML VIAL IVP STA (00:07)
--- NOTE | 2022-08-10 00:12 | ED ---
Headache HPI - General Chief Complaint: Headache Stated Complaint: Migraine Time Seen by Provider: 08/09/22 23:55 Source: RN notes reviewed Mode of arrival: ambulatory Limitations: no limitations - History of Present Illness Initial Comments: This is a pleasant 41-year-old male who presents emergency back complaining of a frontal and bitemporal headache which started yesterday. By yesterday, patient states evening of August 08. Patient does get headaches from time to time. However states this one seems to be lasting longer. Patient states he usually tries Excedrin Migraine, Tylenol, ibuprofen, patient states his headache persists. Headache about 8 out of 10 in intensity. Patient does have some photosensitivity, mild nausea but no vomiting. Patient denying any focal neurologic symptoms. No vertigo. No numbness or tingling. No loss of vision. No slurred speech. No neck stiffness. no fever or chills, no changes in vision or hearing, no sore throat or difficulty with speech, no neck pain, no chest pain or shortness of breath, no abdominal pain, no nausea or vomiting, no changes in urination or bowel movements, no numbness or tingling, no extremity pain, no skin rashes or lesions. Past medical, surgical, social, and family history reviewed. MD Complaint: headache - Related Data Home Medications Medication Instructions Recorded Confirmed PARoxetine HCL [Paxil] 60 mg PO DAILY 08/22/19 06/07/22 traZODone HCL 150 mg PO HS 10/09/20 06/07/22 Ibuprofen [Motrin] 800 mg PO Q8H PRN 11/23/21 06/07/22 Metoprolol Tartrate [Lopressor] 12.5 mg PO BID 11/23/21 06/07/22 Gabapentin 600 mg PO TID PRN 06/05/22 06/07/22 HYDROcodone/APAP 10-325MG [[place] 1 tab PO Q6H PRN 06/05/22 06/07/22 10-325] Meloxicam [Mobic] 15 mg PO HS 06/05/22 06/07/22 Prazosin HCl 6 mg PO HS 06/05/22 06/07/22 Previous Rx's Medication Instructions Recorded Famotidine [Pepcid] 20 mg PO BID #60 tablet 06/06/22 Isosorbide Mononitrate ER [Imdur] 30 mg PO DAILY #30 tab 06/08/22 Allergies Allergy/AdvReac Type Severity Reaction Status Date / Time ketorolac tromethamine Allergy Rash/Hives/Swelling Verified 08/09/22 23:02 [From Toradol] at injection site venom-honey bee Allergy Anaphylaxis Verified 08/09/22 23:02 [bee venom (honey bee)] naproxen AdvReac Nausea & Verified 08/09/22 23:02 Vomiting & Diarrhea Review of Systems ROS Statement: Those systems with pertinent positive or pertinent negative responses have been documented in the HPI. ROS Other: All systems not noted in ROS Statement are negative. Past Medical History Past Medical History: Coronary Artery Disease (CAD) Additional Past Medical History / Comment(s): chronic knee pain, back pain, RBBB, elevated heart rate. History of Any Multi-Drug Resistant Organisms: MRSA Date of last positivie culture/infection: 2008 MDRO Source:: thumb Past Surgical History: Appendectomy, Back Surgery, Orthopedic Surgery Additional Past Surgical History / Comment(s): l4-5 fusion march 2020,l4-s1 fusion in 12/2021, carpel tunnnel release, vascectomy, skin graft knee surg x4, right hip surgery. lower bowel surgery Past Anesthesia/Blood Transfusion Reactions: No Reported Reaction Past Psychological History: Anxiety, Depression, PTSD Smoking Status: Former smoker Past Alcohol Use History: Occasional Past Drug Use History: None Reported - Past Family History Father Family Medical History: No Reported History Additional Family Medical History / Comment(s): Father is alive at age 61 was no major medical problems. Mother Family Medical History: No Reported History Additional Family Medical History / Comment(s): Mother is alive at age 56 with history of spinal surgeries and neurological disorders. one sister with no major medical problems. Patient has 1 son and 1 daughter with no major medical problems. General Exam - General Exam Comments Initial Comments: Patient does not appear to be in significant distress. Cranial nerves II through XII are intact. Patient is alert and oriented 4. No evidence of nuchal rigidity. Does not appear to be ill or toxic Limitations: no limitations General appearance: alert, in no apparent distress Head exam: Present: atraumatic, normocephalic, normal inspection Eye exam: Present: normal appearance, PERRL, EOMI. Absent: scleral icterus, conjunctival injection, periorbital swelling ENT exam: Present: normal exam, mucous membranes moist, normal external ear exam. Absent: mucous membranes dry Neck exam: Present: normal inspection, full ROM. Absent: tenderness, meningismus, lymphadenopathy Respiratory exam: Present: normal lung sounds bilaterally. Absent: respiratory distress, wheezes, rales, rhonchi, stridor, chest wall tenderness, accessory muscle use, decreased breath sounds, prolonged expiratory Cardiovascular Exam: Present: regular rate, normal rhythm, normal heart sounds. Absent: systolic murmur, diastolic murmur, rubs, gallop, clicks GI/Abdominal exam: Present: soft, normal bowel sounds. Absent: distended, tenderness, guarding, rebound, rigid Extremities exam: Present: normal inspection, full ROM, normal capillary refill. Absent: tenderness, pedal edema, joint swelling, calf tenderness Back exam: Present: normal inspection Neurological exam: Present: alert, oriented X3, CN II-XII intact, normal gait, motor sensory deficit, reflexes normal. Absent: altered, abnormal gait Psychiatric exam: Present: normal affect, normal mood Skin exam: Present: warm, dry, intact, normal color. Absent: rash Course Vital Signs 08/09/22 22:58 Temperature 98.2 F Pulse Rate 81 Respiratory 20 Rate Blood Pressure 133/87 O2 Sat by Pulse 98 Oximetry - Reevaluation(s) Reevaluation #1: 08/10/22 01:15 Patient reevaluated, repeat neurological exam reveals cranial nerves II through XII intact, alert and oriented 4, no evidence of neurologic deficit. Headache is improved. Symptoms are improved here in the emergency department Patient is informed of results and questions answered Patient in no distress Medical Decision Making - Medical Decision Making Patient shows no evidence of neurological deficit. This headache was of ins idious onset. We'll order a headache cocktail and plan for reevaluation. Patient was improved prior to discharge. Neurologically intact. Patient reevaluated was in no distress. Patient states he feels well enough to go home. Patient will follow up with his primary care physician. Patient agrees with this treatment plan. All questions answered. The case was discussed in detail with ED attending physician. Presentation, findings, treatment plan discussed in detail. Dishcloth Folder, Dr. Wade Disposition Clinical Impression: Acute headache Disposition: HOME SELF-CARE Condition: Good Instructions (If sedation given, give patient instructions): Acute Headache (ED) Additional Instructions: Follow-up with your regular physician as directed. Return to the ER immediately if any symptoms worsen, new symptoms arise, or any other problems develop. Is patient prescribed a controlled substance at d/c from ED?: No Referrals: Nik Paula MD [Primary Care Provider] - 1-2 days Time of Disposition: 01:15
[2022-08-10] MEDS ORDERED: DEXAMETHASONE SOD PHOSPHATE 10 MG/ML 1 ML VIAL IVP STA (00:29)
[2022-08-10 01:44] VITALS: BP 152/100; PULSE 71; RESP 18; TEMP 97.4
== END 2022-08-10 01:44 | disposition home or self-care (01) ==
LOC: EC 22:18
DX: R51.9 Headache, unspecified (principal); I25.10 Atherosclerotic heart disease of native coronary artery without angina pectoris; Z87.891 Personal history of nicotine dependence; Z91.030 Bee allergy status; Z88.2 Allergy status to sulfonamides; Z88.6 Allergy status to analgesic agent
CPT/HCPCS: 96374; 96375; 99283; 96361; J1200; J1100; J2765

== ENCOUNTER 2022-09-11 19:40 | Emergency (ER) | payer MEDICARE ==
[2022-09-11 20:13] VITALS: RESP 16
--- NOTE | 2022-09-11 21:16 | XR ---
EXAMINATION TYPE: XR chest 2V DATE OF EXAM: 09/11/2022 COMPARISON: 08/02/2022 HISTORY: Rib pain TECHNIQUE: 2 views FINDINGS: Heart and mediastinum are normal. Lungs are clear. Diaphragm is normal. Bony thorax is inta ct. IMPRESSION: Normal chest. No change.
[2022-09-12 01:27] VITALS: BP 118/82; PULSE 74; TEMP 98
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
[2022-09-12] MEDS ORDERED: HYDROcodone/APAP 10-325MG 1 EACH TAB PO ONE (01:57)
[2022-09-12 02:00] LABS: Basophils # (A) 0.1 k/uL (0-0.2); Basophils % (A) 1 %; Eosinophils # (A) 0.3 k/uL (0-0.7); Eosinophils % (A) 4 %; HCT 48.7 % (39.0-53.0); Lymphocytes # (A) 2.9 k/uL (1.0-4.8); Lymphocytes % (A) 33 %; MCH 30.3 pg (25.0-35.0); MCHC 33.6 g/dL (31.0-37.0); MCV 90.2 fL (80.0-100.0); Mean Platelet Volume 8.6; Monocytes # (A) 0.4 k/uL (0-1.0); Monocytes % (A) 5 %; Neutrophils # (A) 4.8 k/uL (1.3-7.7); Neutrophils % (A) 56 %; Platelet Count 201 k/uL (150-450); RDW 12.9 % (11.5-15.5); WBC 8.6 k/uL (3.8-10.6)
[2022-09-12 02:09] LABS: Partial Thromboplastin Time 26.2 sec (22.0-30.0); Prothrombin Time 10.8 sec (9.0-12.0)
[2022-09-12 02:13] LABS: ALT 27 U/L (4-49); AST 24 U/L (17-59); African American GFR (CKD) >90 (>60 ml/min/1.73 sqM); Albumin 4.5 g/dL (3.5-5.0); Alkaline Phosphatase 58 U/L (38-126); Anion Gap 9 mmol/L; Blood Urea Nitrogen 16 mg/dL (9-20); Calcium 9.3 mg/dL (8.4-10.2); Carbon Dioxide 25 mmol/L (22-30); Chloride 104 mmol/L (98-107); Glucose 132 mg/dL (74-99); HGB 16.4 gm/dL (13.0-17.5); Magnesium 1.8 mg/dL (1.6-2.3); Non-African American GFR(CKD) >90 (>60 ml/min/1.73 sqM); Potassium 3.7 mmol/L (3.5-5.1); Sodium 138 mmol/L (137-145); Total Bilirubin 0.6 mg/dL (0.2-1.3); Total Protein 6.9 g/dL (6.3-8.2)
--- NOTE | 2022-09-12 02:26 | XR ---
EXAMINATION TYPE: XR sternum DATE OF EXAM: 09/12/2022 COMPARISON: NONE HISTORY: Chest pain TECHNIQUE: 2 view FINDINGS: The sternal segments have normal alignment. No fracture. No retrosternal mass. IMPRESSION: Negative sternum exam. No fracture.
== END 2022-09-12 02:49 | disposition home or self-care (01) ==
LOC: EC 19:40
DX: R07.9 Chest pain, unspecified (principal); I25.10 Atherosclerotic heart disease of native coronary artery without angina pectoris; F32.A Depression, unspecified; F41.9 Anxiety disorder, unspecified; F43.10 Post-traumatic stress disorder, unspecified; Z87.891 Personal history of nicotine dependence; Z79.84 Long term (current) use of oral hypoglycemic drugs; Z79.83 Long term (current) use of bisphosphonates; Z79.899 Other long term (current) drug therapy; Z88.6 Allergy status to analgesic agent; Z91.030 Bee allergy status
CPT/HCPCS: 36415; 71046; 71120; 80053; 83735; 84484; 85025; 85379; 85610; 85730; 87635; 93005; 99285

== ENCOUNTER 2022-09-23 21:32 | Emergency (ER) | payer OTHER ==
[2022-09-23 21:39] VITALS: TEMP 98.7
--- NOTE | 2022-09-23 22:15 | ED ---
Extremity Problem HPI - General Chief complaint: Extremity Problem,Nontraumatic Stated complaint: Shoulder Pain Time Seen by Provider: 09/23/22 21:45 Source: patient, RN notes reviewed, old records reviewed Mode of arrival: ambulatory Limitations: no limitations - History of Present Illness Initial comments: This is a 41-year-old male DF for evaluation of right shoulder pain. 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 No traumatic injury no falls no other injuries noted. Patient's able to move the arm all fingers and at the elbow. Pain is just severe and the shoulder with movement MD Complaint: extremity pain, extremity swelling, joint swelling -: hour(s) Location: right, upper extremity History of Same: Yes -: Yes myalgia, Yes arthralgia Radiation: proximal Severity scale (1-10): 3 Quality: aching Consistency: intermittent Improves with: nothing Worsens with: palpation Associated Symptoms: denies other symptoms - Related Data Home Medications Medication Instructions Recorded Confirmed PARoxetine HCL [Paxil] 60 mg PO DAILY 08/22/19 06/07/22 traZODone HCL 150 mg PO HS 10/09/20 06/07/22 Ibuprofen [Motrin] 800 mg PO Q8H PRN 11/23/21 06/07/22 Metoprolol Tartrate [Lopressor] 12.5 mg PO BID 11/23/21 06/07/22 Gabapentin 600 mg PO TID PRN 06/05/22 06/07/22 HYDROcodone/APAP 10-325MG [[place] 1 tab PO Q6H PRN 06/05/22 06/07/22 10-325] Meloxicam [Mobic] 15 mg PO HS 06/05/22 06/07/22 Prazosin HCl 6 mg PO HS 06/05/22 06/07/22 Previous Rx's Medication Instructions Recorded Famotidine [Pepcid] 20 mg PO BID #60 tablet 06/06/22 Isosorbide Mononitrate ER [Imdur] 30 mg PO DAILY #30 tab 06/08/22 Cyclobenzaprine [Flexeril] 10 mg PO HS PRN #10 tab 09/27/22 Allergies Allergy/AdvReac Type Severity Reaction Status Date / Time ketorolac tromethamine Allergy Rash/Hives/Swelling Verified 09/23/22 21:39 [From Toradol] at injection site venom-honey bee Allergy Anaphylaxis Verified 09/23/22 21:39 [bee venom (honey bee)] naproxen AdvReac Nausea & Verified 09/23/22 21:39 Vomiting & Diarrhea Review of Systems ROS Statement: Those systems with pertinent positive or pertinent negative responses have been documented in the HPI. ROS Other: All systems not noted in ROS Statement are negative. Past Medical History Past Medical History: Coronary Artery Disease (CAD) Additional Past Medical History / Comment(s): chronic knee pain, back pain, RBBB, elevated heart rate. History of Any Multi-Drug Resistant Organisms: MRSA Date of last positivie culture/infection: 2008 MDRO Source:: thumb Past Surgical History: Appendectomy, Back Surgery, Orthopedic Surgery Additional Past Surgical History / Comment(s): l4-5 fusion march 2020,l4-s1 fusion in 12/2021, carpel tunnnel release, vascectomy, skin graft knee surg x4, right hip surgery. lower bowel surgery Past Anesthesia/Blood Transfusion Reactions: No Reported Reaction Past Psychological History: Anxiety, Depression, PTSD Smoking Status: Former smoker Past Alcohol Use History: Occasional Past Drug Use History: None Reported - Past Family History Father Family Medical History: No Reported History Additional Family Medical History / Comment(s): Father is alive at age 61 was no major medical problems. Mother Family Medical History: No Reported History Additional Family Medical History / Comment(s): Mother is alive at age 56 with history of spinal surgeries and neurological disorders. one sister with no major medical problems. Patient has 1 son and 1 daughter with no major medical problems. General Exam Limitations: no limitations General appearance: alert, in no apparent distress Head exam: Present: atraumatic, normocephalic, normal inspection Eye exam: Present: normal appearance, PERRL, EOMI. Absent: scleral icterus, conjunctival injection, periorbital swelling ENT exam: Present: normal exam, mucous membranes moist Neck exam: Present: normal inspection. Absent: tenderness, meningismus, lymphadenopathy Respiratory exam: Present: normal lung sounds bilaterally. Absent: respiratory distress, wheezes, rales, rhonchi, stridor Cardiovascular Exam: Present: regular rate, normal rhythm, normal heart sounds. Absent: systolic murmur, diastolic murmur, rubs, gallop, clicks GI/Abdominal exam: Present: soft, normal bowel sounds. Absent: distended, tenderness, guarding, rebound, rigid Extremities exam: Present: normal inspection, full ROM, normal capillary refill. Absent: tenderness, pedal edema, joint swelling, calf tenderness Back exam: Present: normal inspection Neurological exam: Present: alert, oriented X3, CN II-XII intact Psychiatric exam: Present: normal affect, normal mood Skin exam: Present: warm, dry, intact, normal color. Absent: rash Course Vital Signs 09/23/22 09/23/22 21:36 23:42 Temperature 98.7 F Pulse Rate 81 94 Respiratory 18 17 Rate Blood Pressure 117/80 122/82 O2 Sat by Pulse 98 98 Oximetry - Reevaluation(s) Reevaluation #1: 09/23/22 medical record is reviewed patient symptoms improved here in the ED patient informed of results and questions answered Medical Decision Making - Medical Decision Making 41 male ER for evaluation of shoulder pain. Nonspecific right shoulder pain. Patient given pain control, x-rays are negative patient can be discharged home - Radiology Data Radiology results: report reviewed (X-ray right shoulder is negative for traumatic injury), image reviewed Disposition Clinical Impression: Right shoulder pain Disposition: HOME SELF-CARE Condition: Good Instructions (If sedation given, give patient instructions): Swollen Joint (ED), Shoulder Pain (ED) Is patient prescribed a controlled substance at d/c from ED?: No Referrals: Nik Paula MD [Primary Care Provider] - 1-2 days Time of Disposition: 23:00
[2022-09-23] MEDS ORDERED: Acetaminophen-Codeine 300-30mg TAB PO STA (22:16)
[2022-09-23] MEDS ORDERED: ACET/COD 300 MG/30 MG STARTER PACK 6 TAB BTL PO STA (22:59)
--- NOTE | 2022-09-23 23:09 | XR ---
EXAMINATION TYPE: XR shoulder complete RT DATE OF EXAM: 09/23/2022 COMPARISON: NONE HISTORY: Pain TECHNIQUE: 3 views FINDINGS: There is no evidence of fracture nor dislocation. Joint spaces are normal. No pathologic ca lcification IMPRESSION: Negative right shoulder exam. No fracture.
[2022-09-23 23:44] VITALS: BP 122/82; PULSE 94; RESP 17
== END 2022-09-23 23:53 | disposition home or self-care (01) ==
LOC: EC 21:32
DX: M25.511 Pain in right shoulder (principal); I25.10 Atherosclerotic heart disease of native coronary artery without angina pectoris; Z87.891 Personal history of nicotine dependence; Z91.030 Bee allergy status; Z88.5 Allergy status to narcotic agent; Z88.8 Allergy status to other drugs, medicaments and biological substances
CPT/HCPCS: 99284

== ENCOUNTER 2022-09-27 17:54 | Emergency (ER) | payer OTHER ==
[2022-09-27] MEDS ORDERED: MORPHINE SULFATE 2 MG/ML SYRINGE IM STA (18:16)
--- NOTE | 2022-09-27 19:07 | XR ---
EXAMINATION TYPE: XR shoulder complete RT DATE OF EXAM: 09/27/2022 COMPARISON: NONE HISTORY: Pain TECHNIQUE: 3 views FINDINGS: There is no evidence of fracture nor dislocation. Joint spaces are normal. IMPRESSION: Negative right shoulder exam. No fracture.
[2022-09-27] MEDS ORDERED: ORPHENADRINE 30 MG/ML 2 ML VIAL IM STA (20:16)
[2022-09-27] MEDS ORDERED: DEXAMETHASONE SOD PHOSPHATE 10 MG/ML 1 ML VIAL IM STA (20:16)
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
[2022-09-27] MEDS ORDERED: ACET/COD 300 MG/30 MG STARTER PACK 6 TAB BTL PO STA (20:19)
[2022-09-27 20:33] VITALS: BP 134/94; PULSE 64; RESP 17; TEMP 98.2
== END 2022-09-27 20:32 | disposition home or self-care (01) ==
LOC: EC 17:54
DX: S46.911A Strain of unspecified muscle, fascia and tendon at shoulder and upper arm level, right arm, initial encounter (principal); I25.10 Atherosclerotic heart disease of native coronary artery without angina pectoris; F32.A Depression, unspecified; F41.9 Anxiety disorder, unspecified; Z87.891 Personal history of nicotine dependence; Z90.49 Acquired absence of other specified parts of digestive tract; Z79.899 Other long term (current) drug therapy; Z88.6 Allergy status to analgesic agent; Z91.038 Other insect allergy status; W34.00XA Accidental discharge from unspecified firearms or gun, initial encounter
CPT/HCPCS: 73030; 99283; 96372 ×3; J1100; J2360; J2270

== ENCOUNTER → 2022-10-05 | Outpatient (CLI) | payer OTHER ==
--- NOTE | 2022-10-06 07:02 | MR ---
EXAMINATION TYPE: MR lumbar spine wo/w con DATE OF EXAM: 10/05/2022 COMPARISON: Prior MRI lumbar spine September 10, 2021. Most recent lumbar spine x-ray July 09. HISTORY: ARTHRODESIS STATUS , repeat surgery December 2021, LOW BACK PAIN INTO BETSY BUTTOCKS AND LOWER EX TREMITIES TECHNIQUE: Multiplanar, multisequence images of the lumbar spine is performed without and with IV contrast, util izing 12 mL intravenous Gadavist FINDINGS: Sagittal images of the lumbar spine show vertebral body heights to remain satisfactory. Sin ce prior MRI there is interval surgery with new posterior interpedicular rods and screws transfixing L4-S1 levels bilaterally. Persistent artifact from artificial disc material at L4-L5 level. Slightly less prominent grade 1 anterolisthesis of L4 on L5 after surgery. Alignment otherwise stable and sati sfactory. The intervertebral discs demonstrate normal heights and hydration above surgical levels. T he conus medullaris remains normal in position and signal ending at T12-L1 disc space. The bone erum ow signal intensity is within normal limits above and below surgical levels. No abnormal postcontrast enhancement is seen. Axial images show T12-L1 through the L3-L4 levels to remain within normal limits. Axial images at L4-L5 level show artifact from surgical change and subtle spondylolisthesis. Spinal c anal is preserved. Left-sided laminectomy defect suspected. Patent bilateral neural foramina. Axial images at L5-S1 level show artifact from surgical change. Spinal canal is preserved. Bilateral neural foramina are patent. IMPRESSION: New fusion surgery L4-S1 levels with improved spondylolisthesis L4-L5. Alignment otherwis e satisfactory. No new large disc herniation is evident.
== END | disposition home or self-care (01) ==
LOC: RADMRIMAIN 08:42
PROVIDERS: ATTEND Nurse Practitioner
DX: M43.17 Spondylolisthesis, lumbosacral region (principal); Z98.1 Arthrodesis status
CPT/HCPCS: 72158; A9585

== ENCOUNTER 2022-10-09 22:53 | Emergency (ER) | payer OTHER ==
[2022-10-09 23:45] VITALS: TEMP 98
[2022-10-10] MEDS ORDERED: DEXAMETHASONE SOD PHOSPHATE 10 MG/ML 1 ML VIAL IM STA (00:42)
[2022-10-10] MEDS ORDERED: HYDROcodone/APAP 5-325MG 1 EACH TAB PO STA (00:42)
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
--- NOTE | 2022-10-10 01:16 | XR ---
EXAMINATION TYPE: XR lumbar spine 2 or 3V DATE OF EXAM: 10/10/2022 COMPARISON: 07/09/2022 HISTORY: Fusion surgery. Pain. TECHNIQUE: 5 views FINDINGS: There are rods and screws fusing posteriorly the lumbar spine from L4 to S1. There is disc prosthesis at L4-5. No compression fracture. Sacroiliac joints are intact. There is apparent laminect matthew of L5. IMPRESSION: Multilevel fusion surgery. No fracture. There is a 5 mm L4-5 spondylolisthesis. Unchanged .
[2022-10-10] MEDS ORDERED: ACET/COD 300 MG/30 MG STARTER PACK 6 TAB BTL PO STA (02:07)
[2022-10-10 02:35] VITALS: BP 139/66; PULSE 81; RESP 15
== END 2022-10-10 02:39 | disposition home or self-care (01) ==
LOC: EC 22:53
DX: M43.16 Spondylolisthesis, lumbar region (principal); I25.10 Atherosclerotic heart disease of native coronary artery without angina pectoris; F41.9 Anxiety disorder, unspecified; F32.A Depression, unspecified; Z87.891 Personal history of nicotine dependence; Z88.6 Allergy status to analgesic agent; Z91.030 Bee allergy status
CPT/HCPCS: 99283; 96372; 72100; J1100

== ENCOUNTER 2022-10-16 14:06 | Observation (INO) | payer OTHER, MEDICARE ==
[2022-10-16 14:55] LABS: Basophils # (A) 0.1 k/uL (0-0.2); Basophils % (A) 1 %; Eosinophils # (A) 0.3 k/uL (0-0.7); Eosinophils % (A) 4 %; HCT 46.1 % (39.0-53.0); Lymphocytes # (A) 2.7 k/uL (1.0-4.8); Lymphocytes % (A) 35 %; MCHC 34.8 g/dL (31.0-37.0); Mean Platelet Volume 8.1; Monocytes # (A) 0.4 k/uL (0-1.0); Monocytes % (A) 5 %; Neutrophils # (A) 4.1 k/uL (1.3-7.7); Neutrophils % (A) 54 %; Platelet Count 259 k/uL (150-450); RBC 5.18 m/uL (4.30-5.90); RDW 12.8 % (11.5-15.5); WBC 7.6 k/uL (3.8-10.6)
[2022-10-16 15:06] LABS: ALT 37 U/L (4-49); AST 27 U/L (17-59); African American GFR (CKD) >90 (>60 ml/min/1.73 sqM); Alkaline Phosphatase 52 U/L (38-126); Amylase 46 U/L (30-110); Anion Gap 7 mmol/L; Blood Urea Nitrogen 15 mg/dL (9-20); Calcium 9.5 mg/dL (8.4-10.2); Carbon Dioxide 22 mmol/L (22-30); Chloride 107 mmol/L (98-107); Glucose 108 mg/dL (74-99); Lipase 90 U/L (23-300); Magnesium 1.9 mg/dL (1.6-2.3); Non-African American GFR(CKD) >90 (>60 ml/min/1.73 sqM); Potassium 4.6 mmol/L (3.5-5.1); Sodium 136 mmol/L (137-145); Total Bilirubin 0.5 mg/dL (0.2-1.3); Total Protein 6.6 g/dL (6.3-8.2)
[2022-10-16] MEDS ORDERED: NITROGLYCERIN SL TABS 0.4 MG TAB SUBLINGUAL STA ×2 (15:08→15:57)
--- NOTE | 2022-10-16 15:12 | XR ---
EXAMINATION TYPE: XR chest 2V DATE OF EXAM: 10/16/2022 COMPARISON: 09/11/2022 INDICATION: Chest pain TECHNIQUE: Frontal and lateral views of the chest are obtained. FINDINGS: The heart size is normal. The pulmonary vasculature is normal. The lungs are clear. IMPRESSION: 1. No acute pulmonary process.
--- NOTE | 2022-10-16 15:13 | ED ---
Chest Pain HPI - General Chief Complaint: Chest Pain Stated Complaint: Irregular heart rate,JEIMY Time Seen by Provider: 10/16/22 14:22 Source: patient, RN notes reviewed Mode of arrival: ambulatory Limitations: no limitations - History of Present Illness Initial Comments: This is a 41-year-old male who presents to the emergency department for chest pain, shortness of breath, and an irregular heartbeat. Patient states that when he woke up this morning, he had chest heaviness with minor difficulty breathing. He went to the [facility] to get blood work done, and he states that his heart rate was around 220 bpm and he was told that he had an irregular heart rhythm. He called his scrapper, who advised he come to the office. When he was in his office, his heart rate was still elevated at around 220 bpm, and subsequently dropped into the 80s almost immediately without any cause. His scrapper also noticed an irregular heart rate, and instructed him to come to the emergency department for evaluation. He had a cardiac catheterization here on 06/07 of this year and no stents were placed, however he was noted to have severe coronary vasospasm. He was then started on isosorbide. In addition to the chest pain, he has been experiencing epigastric and right upper quadrant pain over the last several days. States that the symptoms are worse today. Denies any associated nausea or vomiting. He has never been diagnosed with gallstones. Denies any fevers, chills, sore throat, cough, palpitations, nausea, vomiting, diarrhea, back pain, or headaches. MD Complaint: chest pain Pain Location: substernal, left chest Quality: heaviness - Related Data Home Medications Medication Instructions Recorded Confirmed PARoxetine HCL [Paxil] 60 mg PO DAILY 08/22/19 10/16/22 traZODone HCL 150 mg PO HS PRN 10/09/20 10/16/22 Ibuprofen [Motrin] 800 mg PO Q8H PRN 11/23/21 10/16/22 Metoprolol Tartrate [Lopressor] 12.5 mg PO BID 11/23/21 10/16/22 Gabapentin 600 mg PO TID 06/05/22 10/16/22 HYDROcodone/APAP 10-325MG [[place] 1 tab PO QID 06/05/22 10/16/22 10-325] Meloxicam [Mobic] 15 mg PO DAILY 06/05/22 10/16/22 Prazosin HCl 6 mg PO HS 06/05/22 10/16/22 Acetaminophen Tab [Tylenol] 325 - 650 mg PO Q6H PRN 10/16/22 10/16/22 Aspirin EC [Ecotrin] 325 mg PO QID PRN 10/16/22 10/16/22 EPINEPHrine (Auto Inject) [Epipen] 0.3 mg IM ONCE PRN 10/16/22 10/16/22 Previous Rx's Medication Instructions Recorded Isosorbide Mononitrate ER [Imdur] 30 mg PO DAILY #30 tab 06/08/22 Allergies Allergy/AdvReac Type Severity Reaction Status Date / Time ketorolac tromethamine Allergy Rash/Hives/Swelling Verified 10/16/22 16:20 [From Toradol] at injection site venom-honey bee Allergy Anaphylaxis Verified 10/16/22 16:20 [bee venom (honey bee)] naproxen AdvReac Nausea & Verified 10/16/22 16:20 Vomiting & Diarrhea Review of Systems ROS Statement: Those systems with pertinent positive or pertinent negative responses have been documented in the HPI. ROS Other: All systems not noted in ROS Statement are negative. EKG Findings - EKG Comments: EKG Findings:: Sinus rhythm. Normal axis. Ventricular rate 76 bpm, AR interval 149 ms, QRS duration 102 ms, QTC 408 ms. EKG interpreted by myself and ED attending. Past Medical History Past Medical History: Coronary Artery Disease (CAD) Additional Past Medical History / Comment(s): chronic knee pain, back pain, RBBB, elevated heart rate. History of Any Multi-Drug Resistant Organisms: MRSA Date of last positivie culture/infection: 2008 MDRO Source:: thumb Past Surgical History: Appendectomy, Back Surgery, Orthopedic Surgery Additional Past Surgical History / Comment(s): l4-5 fusion march 2020,l4-s1 fusion in 12/2021, carpel tunnnel release, vascectomy, skin graft knee surg x4, right hip surgery. lower bowel surgery Past Anesthesia/Blood Transfusion Reactions: No Reported Reaction Past Psychological History: Anxiety, Depression, PTSD Smoking Status: Former smoker Past Alcohol Use History: Occasional Past Drug Use History: None Reported - Past Family History Father Family Medical History: No Reported History Additional Family Medical History / Comment(s): Father is alive at age 61 was no major medical problems. Mother Family Medical History: No Reported History Additional Family Medical History / Comment(s): Mother is alive at age 56 with history of spinal surgeries and neurological disorders. one sister with no major medical problems. Patient has 1 son and 1 daughter with no major medical problems. General Exam Limitations: no limitations General appearance: alert, in no apparent distress Head exam: Present: atraumatic, normocephalic, normal inspection Respiratory exam: Present: normal lung sounds bilaterally. Absent: respiratory distress, wheezes, rales, rhonchi, stridor, chest wall tenderness Cardiovascular Exam: Present: regular rate, normal rhythm, normal heart sounds. Absent: systolic murmur, diastolic murmur, rubs, gallop, clicks GI/Abdominal exam: Present: soft, tenderness (RUQ, LUQ, and epigastric), normal bowel sounds. Absent: distended Neurological exam: Present: alert, oriented X3, CN II-XII intact Psychiatric exam: Present: normal affect, normal mood Skin exam: Present: warm, dry, intact, normal color. Absent: rash Course Vital Signs 10/16/22 10/16/22 10/16/22 14:15 15:14 16:04 Temperature 97.9 F Pulse Rate 90 73 67 Respiratory 18 18 18 Rate Blood Pressure 115/77 114/95 102/68 O2 Sat by Pulse 98 96 97 Oximetry 10/16/22 18:18 Temperature Pulse Rate 70 Respiratory 20 Rate Blood Pressure 126/87 O2 Sat by Pulse 100 Oximetry Chest Pain [facility] This is a 41-year-old male who presents to the emergency department for chest pain and difficulty breathing. Lab work obtained and found to be nonactionable, including a negative d-dimer and negative troponin. My interpretation of his chest x-ray identifies no localized consolidations or infiltrates. He was given a total of 2 doses of nitroglycerin, each of which improved his symptoms a little more each time. Ultrasound of the gallbladder obtained revealing multiple gallstones and no evidence for an acute cholecystitis. Findings discussed with the patient, and he was experiencing abdominal pain following the ultrasound from the pressure of the probe. When he was reevaluated at approximately 1830, his chest pain had essentially resolved, however he continued to have abdominal pain. He subsequently required a dose of Dilaudid. Patient had essentially no improvement with the Dilaudid or morphine prior, and continues to have epigastric and right upper quadrant pain with radiation into the back. I spoke with Dr. Almazan, foundation drill operator helper general surgery, who advised that the patient can be admitted for pain management in relation to the cholelithiasis, however he would need medicine and cardiac clearance before proceeding with any kind of procedure. He also recommended that he have a drain placed by interventional radiology as opposed to a cholecystectomy if he continues to become symptomatic. Case discussed with Dr. Leger, who accepts the patient for admission. General surgery and cardiology consults placed. This case was discussed in detail with the attending ED physician. Presentation, findings, and treatment plan discussed in detail as well. Disposition Clinical Impression: Coronary artery vasospasm, Symptomatic cholelithiasis Disposition: ADMITTED IP TO THIS HOSP Referrals: Nik Paula MD [Primary Care Provider] - 1-2 days
[2022-10-16 15:16] LABS: INR 0.9 (<1.2); Partial Thromboplastin Time 24.3 sec (22.0-30.0); Prothrombin Time 9.9 sec (9.0-12.0)
--- NOTE | 2022-10-16 15:50 | US ---
EXAMINATION TYPE: US gallbladder DATE OF EXAM: 10/16/2022 COMPARISON: CTA abdomen October 2020 CLINICAL HISTORY: RUQ and epigastric pain. RUQ pain TECHNIQUE: Multiple sonographic images of the right upper quadrant are obtained. FINDINGS: EXAM MEASUREMENTS: Liver Length: 21.1 cm Gallbladder Wall: 0.3 cm CBD: 0.5 cm Right Kidney: 13.5 x 5.2 x 5.7 cm Pancreas: Obscured by bowel gas Liver: enlarged Gallbladder: multiple stones Evidence for sonographic Crook's sign: no CBD: limited evaluation due to overlying bowel content Right Kidney: no evidence of hydronephrosis Pancreas obscured by overlying bowel gas on initial images. Visualized liver slightly heterogeneous w ithout worrisome mass or ductal dilatation. There are several mobile shadowing gallstones within gall bladder. No pericholecystic fluid or abnormal gallbladder wall thickening. No right-sided hydronephro sis. IMPRESSION: Gallstones without secondary ultrasound evidence for acute cholecystitis. In patient with right upper quadrant pain, it is not entirely excluded. Consider HIDA scan follow-up.
[2022-10-16 15:51] LABS: Appearance,Urine Clear (Clear); Bilirubin,Urine Negative (Negative); Blood,Urine Negative (Negative); Color,Urine Yellow; Glucose,Urine (UA) Negative (Negative); Ketones,Urine Negative (Negative); Leukocyte Esterase,Urine Negative (Negative); Nitrite,Urine Negative (Negative); PH, Urine 5.5 (5.0-8.0); Protein,Urine Negative (Negative); Specific Gravity,Urine 1.015 (1.001-1.035); Urobilinogen,Urine <2.0 mg/dL (<2.0)
[2022-10-16] MEDS ORDERED: MORPHINE SULFATE 2 MG/ML SYRINGE IVP STA (15:58)
[2022-10-16] MEDS ORDERED: HYDROmorphone 0.5 MG/0.5 ML SYRINGE IVP STA (16:50)
[2022-10-16] MEDS ORDERED: HYDROmorphone 1 MG/ML 1 ML SYRINGE IVP STA (16:56)
[2022-10-16] MEDS ORDERED: ONDANSETRON 4 MG/2 ML VIAL IVP PRN (20:01)
[2022-10-16] MEDS ORDERED: ACETAMINOPHEN TAB 325 MG TAB PO PRN (20:01)
[2022-10-16] MEDS ORDERED: NALOXONE 0.4 MG/ML 1 ML VIAL IV PRN (20:01)
[2022-10-16] MEDS: PRAZOSIN 1 MG CAP PO SCH (20:18)
[2022-10-16] MEDS: HYDROmorphone 1 MG/ML 1 ML SYRINGE IVP PRN ×2 (20:19→23:05)
[2022-10-16] MEDS: METOPROLOL TARTRATE 12.5 MG TAB PO SCH (20:21)
[2022-10-16] MEDS: GABAPENTIN 300 MG CAP PO SCH (21:12)
[2022-10-16] MEDS: HYDROmorphone 0.5 MG/0.5 ML SYRINGE IVP PRN (21:32)
[2022-10-16] MEDS: traZODone HCL 50 MG TAB PO PRN (23:05)
[2022-10-17] MEDS: HYDROmorphone 1 MG/ML 1 ML SYRINGE IVP PRN ×5 (02:36→20:33)
[2022-10-17] MEDS: HYDROmorphone 0.5 MG/0.5 ML SYRINGE IVP PRN (05:02)
[2022-10-17] MEDS: PANTOPRAZOLE 40 MG/10 ML VIAL IV SCH (09:14)
[2022-10-17] MEDS: PARoxetine 20 MG TAB PO SCH (09:15)
[2022-10-17] MEDS: ISOSORBIDE MONONITRATE ER 30 MG TAB.ER.24H PO SCH (09:15)
[2022-10-17] MEDS: GABAPENTIN 300 MG CAP PO SCH ×3 (09:15→20:32)
[2022-10-17] MEDS: METOPROLOL TARTRATE 12.5 MG TAB PO SCH ×2 (09:21→20:32)
--- NOTE | 2022-10-17 10:52 | P.CRDCN ---
History of Present Illness Consult date: 10/17/22 Requesting physician: Hardik Leger Reason for Consult (text): history of coronary vasospasm, possible surgical clearance Chief complaint: RUQ/epigastric pain, rapid heart beat History of present illness: This is a pleasant 41-year-old gentleman who follows in the office with Dr. Kennedy. He has a past medical history of hypertension and severe coronary vasospasm noted on cardiac catheterization from June of this year. She woke up yesterday and overall just did not feel well. Had some right upper quadrant and epigastric discomfort. Went in for routine labs and was told that his heart rate was 220 and irregular. He decided to come to the emergency department and on examination was noted to have significant right upper quadrant tenderness which has continued. He's had no evidence of arrhythmia since admission. Chest x-ray showed no acute pulmonary process. Troponins have been negative 3. EKG showed sinus mechanism with no evidence of acute ischemia. He underwent ultrasound of the gallbladder which showed gallstones without secondary ultrasound evidence for acute cholecystitis and patient with right upper quadrant pain, it is not entirely excluded, consider HIDA scan follow-up. Labs show normal LFTs. Upon examination the patient is sitting up at the side of the bed. Continues to complain of right upper quadrant and epigastric discomfort with significant tenderness with light palpation of the right upper quadrant. Denies any complaints of palpitations, dizziness, shortness of breath, edema, orthopnea, PND or chest pain. He is currently on metoprolol tartrate 12.5 mg by mouth twice a day and isosorbide 30 mg by mouth daily which have been controlling his symptoms at home. Surgery has been consulted for possible cholecystectomy patient is awaiting evaluation at this time. Past Medical History Past Medical History: Coronary Artery Disease (CAD) Additional Past Medical History / Comment(s): chronic knee pain, back pain, RBBB, elevated heart rate. History of Any Multi-Drug Resistant Organisms: MRSA Date of last positivie culture/infection: 2008 MDRO Source:: thumb Past Surgical History: Appendectomy, Back Surgery, Orthopedic Surgery Additional Past Surgical History / Comment(s): l4-5 fusion march 2020,l4-s1 fusion in 12/2021, carpel tunnnel release, vascectomy, skin graft knee surg x4, right hip surgery. lower bowel surgery Past Anesthesia/Blood Transfusion Reactions: No Reported Reaction Past Psychological History: Anxiety, Depression, PTSD Additional Psychological History / Comment(s): Pt resides with his spouse and 2 children. He is independent. He is retired. He served in the . Smoking Status: Former smoker Past Alcohol Use History: Occasional Additional Past Alcohol Use History / Comment(s): Patient was a smoker of half a pack per day for 10 years and quit in december 2019, and occasionally still smokes one or two. He denies any marijuana or street drug use. He drinks alcohol socially. He currently lives at home with his . He served in the [employer] and was in combat in [place]. Past Drug Use History: None Reported - Past Family History Father Family Medical History: No Reported History Additional Family Medical History / Comment(s): Father is alive at age 61 was no major medical problems. Mother Family Medical History: No Reported History Additional Family Medical History / Comment(s): Mother is alive at age 56 with history of spinal surgeries and neurological disorders. one sister with no major medical problems. Patient has 1 son and 1 daughter with no major medical problems. Medications and Allergies Home Medications Medication Instructions Recorded Confirmed Type PARoxetine HCL [Paxil] 60 mg PO DAILY 08/22/19 10/16/22 History traZODone HCL 150 mg PO HS PRN 10/09/20 10/16/22 History Ibuprofen [Motrin] 800 mg PO Q8H PRN 11/23/21 10/16/22 History Metoprolol Tartrate [Lopressor] 12.5 mg PO BID 11/23/21 10/16/22 History Gabapentin 600 mg PO TID 06/05/22 10/16/22 History HYDROcodone/APAP 10-325MG [[place] 1 tab PO QID 06/05/22 10/16/22 History 10-325] Meloxicam [Mobic] 15 mg PO DAILY 06/05/22 10/16/22 History Prazosin HCl 6 mg PO HS 06/05/22 10/16/22 History Isosorbide Mononitrate ER [Imdur] 30 mg PO DAILY #30 tab 06/08/22 10/16/22 Rx Acetaminophen Tab [Tylenol] 325 - 650 mg PO Q6H PRN 10/16/22 10/16/22 History Aspirin EC [Ecotrin] 325 mg PO QID PRN 10/16/22 10/16/22 History EPINEPHrine (Auto Inject) [Epipen] 0.3 mg IM ONCE PRN 10/16/22 10/16/22 History Allergies Allergy/AdvReac Type Severity Reaction Status Date / Time ketorolac tromethamine Allergy Rash/Hives/Swelling Verified 10/16/22 16:20 [From Toradol] at injection site venom-honey bee Allergy Anaphylaxis Verified 10/16/22 16:20 [bee venom (honey bee)] naproxen AdvReac Nausea & Verified 10/16/22 16:20 Vomiting & Diarrhea Physical Exam Vitals: Vital Signs Temp Pulse Pulse Resp BP BP Pulse Ox 10/17/22 07:00 97.3 F L 73 16 107/65 97 10/17/22 02:24 97.5 F L 96 17 115/73 94 L 10/16/22 21:15 97.6 F 95 18 116/75 95 10/16/22 20:35 98.2 F 74 16 128/74 98 10/16/22 18:18 70 20 126/87 100 10/16/22 16:04 67 18 102/68 97 10/16/22 15:14 73 18 114/95 96 10/16/22 14:15 97.9 F 90 18 115/77 98 Intake and Output 10/16/22 10/17/22 10/17/22 22:59 06:59 14:59 Other: Voiding Method Toilet # Voids 0 3 # Bowel Movements 1 Weight 124.738 kg PHYSICAL EXAMINATION: This is a 41-year-old male in no apparent distress at the time of my examination. HEENT: Head is atraumatic, normocephalic. Pupils are equal, round. Sclerae anicteric. Conjunctivae are clear. Mucous membranes of the mouth are moist. Neck is supple. There is no elevated jugular venous pressure. No carotid bruit is heard. CHEST EXAMINATION: Clear to auscultation bilaterally. No wheezes rales or rhonchi. Respirations even and nonlabored. HEART EXAMINATION: Heart regular, positive S1 and S2. No S3. No S4. No clicks, rubs or murmurs. ABDOMEN: Soft, significant right upper quadrant tenderness to light palpation. Bowel sounds are heard. No organomegaly noted. EXTREMITIES: 2+ peripheral pulses with no evidence of peripheral edema and no calf tenderness noted. NEUROLOGIC EXAMINATION: Patient is awake, alert and oriented x3. Results 10/16/22 14:46 10/16/22 14:46 Cardiac Enzymes 10/16/22 10/16/22 10/16/22 Range/Units 14:46 14:46 23:22 AST 27 (17-59) U/L Troponin I <0.012 <0.012 (0.000-0.034) ng/mL 10/17/22 Range/Units 02:22 AST (17-59) U/L Troponin I <0.012 (0.000-0.034) ng/mL Coagulation 10/16/22 Range/Units 14:46 PT 9.9 (9.0-12.0) sec APTT 24.3 (22.0-30.0) sec CBC 10/16/22 Range/Units 14:46 WBC 7.6 (3.8-10.6) k/uL RBC 5.18 (4.30-5.90) m/uL Hgb 16.0 (13.0-17.5) gm/dL Hct 46.1 (39.0-53.0) % Plt Count 259 (150-450) k/uL Comprehensive Metabolic Panel 10/16/22 Range/Units 14:46 Sodium 136 L (137-145) mmol/L Potassium 4.6 (3.5-5.1) mmol/L Chloride 107 (98-107) mmol/L Carbon Dioxide 22 (22-30) mmol/L BUN 15 (9-20) mg/dL Creatinine 0.82 (0.66-1.25) mg/dL Glucose 108 H (74-99) mg/dL Calcium 9.5 (8.4-10.2) mg/dL AST 27 (17-59) U/L ALT 37 (4-49) U/L Alkaline Phosphatase 52 (38-126) U/L Total Protein 6.6 (6.3-8.2) g/dL Albumin 4.0 (3.5-5.0) g/dL Current Medications Generic Name Dose Route Start Last Admin Trade Name Freq PRN Reason Stop Dose Admin Acetaminophen 650 mg 10/16/22 20:01 Acetaminophen Tab 325 Mg Tab PO Q6HR PRN Mild Pain or Fever > 100.5 Gabapentin 600 mg 10/16/22 22:00 10/17/22 09:15 Gabapentin 300 Mg Cap PO 600 mg TID JANIE Administration Hydromorphone HCl 0.5 mg 10/16/22 20:01 10/17/22 05:02 Hydromorphone 0.5 Mg/0.5 Ml Syringe IVP 0.5 mg Q3HR PRN Administration Moderate Pain (Scale 4 to 6) Hydromorphone HCl 1 mg 10/16/22 20:01 10/17/22 08:08 Hydromorphone 1 Mg/Ml 1 Ml Syringe IVP 1 mg Q3HR PRN Administration Severe Pain (Scale 7 to 10) Isosorbide Mononitrate 30 mg 10/17/22 09:00 10/17/22 09:15 Isosorbide Mononitrate Er 30 Mg Tab.Er.24h PO 30 mg DAILY JANIE Administration Metoprolol Tartrate 12.5 mg 10/16/22 21:00 10/17/22 09:21 Metoprolol Tartrate 12.5 Mg Tab PO 12.5 mg BID JANIE Administration Naloxone HCl 0.2 mg 10/16/22 20:01 Naloxone 0.4 Mg/Ml 1 Ml Vial IV Q2M PRN Opioid Reversal Ondansetron HCl 4 mg 10/16/22 20:01 Ondansetron 4 Mg/2 Ml Vial IVP Q8HR PRN Nausea And Vomiting Pantoprazole Sodium 40 mg 10/17/22 09:00 10/17/22 09:14 Pantoprazole 40 Mg/10 Ml Vial IV 40 mg DAILY JANIE Administration Paroxetine HCl 60 mg 10/17/22 09:00 10/17/22 09:15 Paroxetine 20 Mg Tab PO 60 mg DAILY JANIE Administration Prazosin HCl 6 mg 10/16/22 21:00 10/16/22 20:18 Prazosin 1 Mg Cap PO 6 mg HS JANIE Administration Trazodone HCl 150 mg 10/16/22 20:03 10/16/22 23:05 Trazodone Hcl 50 Mg Tab PO 150 mg HS PRN Administration Insomnia Intake and Output 10/16/22 10/17/22 10/17/22 22:59 06:59 14:59 Other: Voiding Method Toilet # Voids 0 3 # Bowel Movements 1 Weight 124.738 kg 10/16/22 14:46 10/16/22 14:46 Assessment and Plan Assessment: #1 right upper quadrant and epigastric pain with evidence of cholelithiasis, awaiting surgical evaluation #2 history of coronary vasospasms #3 hypertension Plan: From cardiology 's perspective continue telemetry monitoring to rule out arrhythmia. From our standpoint there is no contraindication to undergoing cholecystectomy. Continue oral nitrate and beta willie perioperatively. We will continue to follow the patient and provide further recommendations accordingly. BANQUET KITCHEN SUPERVISOR note has been reviewed, I agree with a documented findings and plan of care. Patient was seen and examined.
--- NOTE | 2022-10-17 11:24 | P.HPIM ---
History of Present Illness 41-year-old male in with compensative severe right upper quadrant abdominal pain without any fever doesn't have any leukocytosis. Patient is found to have cholelithiasis and cholecystitis on the computed tomography scan of the abdomen patient's Crook's sign is positive. Neurosurgery was consulted. Patient was started on IV fluids Protonix, and Unasyn. Patient is on metoprolol and isosorbide. Patient had history of coronary vasospasm in the past. Patient was having nausea as well. REVIEW OF SYSTEMS: CONSTITUTIONAL: No fever, no malaise, no fatigue. HEENT: No recent visual problems or hearing problems. Denied any sore throat. CARDIOVASCULAR: No chest pain, orthopnea, PND, no palpitations, no syncope. PULMONARY: No shortness of breath, no cough, no hemoptysis. GASTROINTESTINAL: As mentioned in HPI NEUROLOGICAL: No headaches, no weakness, no numbness. HEMATOLOGICAL: Denies any bleeding or petechiae. GENITOURINARY: Denies any burning micturition, frequency, or urgency. MUSCULOSKELETAL/RHEUMATOLOGICAL: Denies any joint pain, swelling, or any muscle pain. ENDOCRINE: Denies any polyuria or polydipsia. The rest of the 14-point review of systems is negative. PHYSICAL EXAMINATION: GENERAL: The patient is alert and oriented x3, not in any acute distress. Well developed, well nourished. HEENT: Pupils are round and equally reacting to light. EOMI. No scleral icterus. No conjunctival pallor. Normocephalic, atraumatic. No pharyngeal erythema. No thyromegaly. CARDIOVASCULAR: S1 and S2 present. No murmurs, rubs, or gallops. PULMONARY: Chest is clear to auscultation, no wheezing or crackles. ABDOMEN: Right require upper quadrant abdominal pain no rigidity Crook's sign positive there is some rebound normoactive bowel sounds. No palpable organomegaly. MUSCULOSKELETAL: No joint swelling or deformity. EXTREMITIES: No cyanosis, clubbing, or pedal edema. NEUROLOGICAL: Gross neurological examination did not reveal any focal deficits. SKIN: No rashes. Assessment and plan -Cholecystitis to surgery was consult and patient will be continued on IV fluids Protonix and antibiotics as mentioned above -History of coronary vasospasm the past no further intervention is distress at this time -Depression -obesity DVT prophylaxis: Lovenox after surgery Past Medical History Past Medical History: Coronary Artery Disease (CAD) Additional Past Medical History / Comment(s): chronic knee pain, back pain, RBBB, elevated heart rate. History of Any Multi-Drug Resistant Organisms: MRSA Date of last positivie culture/infection: 2008 MDRO Source:: thumb Past Surgical History: Appendectomy, Back Surgery, Orthopedic Surgery Additional Past Surgical History / Comment(s): l4-5 fusion march 2020,l4-s1 fusion in 12/2021, carpel tunnnel release, vascectomy, skin graft knee surg x4, right hip surgery. lower bowel surgery Past Anesthesia/Blood Transfusion Reactions: No Reported Reaction Past Psychological History: Anxiety, Depression, PTSD Additional Psychological History / Comment(s): Pt resides with his spouse and 2 children. He is independent. He is retired. He served in the . Smoking Status: Former smoker Past Alcohol Use History: Occasional Additional Past Alcohol Use History / Comment(s): Patient was a smoker of half a pack per day for 10 years and quit in december 2019, and occasionally still smokes one or two. He denies any marijuana or street drug use. He drinks alcohol socially. He currently lives at home with his . He served in the [employer] and was in combat in [place]. Past Drug Use History: None Reported - Past Family History Father Family Medical History: No Reported History Additional Family Medical History / Comment(s): Father is alive at age 61 was no major medical problems. Mother Family Medical History: No Reported History Additional Family Medical History / Comment(s): Mother is alive at age 56 with history of spinal surgeries and neurological disorders. one sister with no major medical problems. Patient has 1 son and 1 daughter with no major medical problems. Medications and Allergies Home Medications Medication Instructions Recorded Confirmed Type PARoxetine HCL [Paxil] 60 mg PO DAILY 08/22/19 10/16/22 History traZODone HCL 150 mg PO HS PRN 10/09/20 10/16/22 History Ibuprofen [Motrin] 800 mg PO Q8H PRN 11/23/21 10/16/22 History Metoprolol Tartrate [Lopressor] 12.5 mg PO BID 11/23/21 10/16/22 History Gabapentin 600 mg PO TID 06/05/22 10/16/22 History HYDROcodone/APAP 10-325MG [[place] 1 tab PO QID 06/05/22 10/16/22 History 10-325] Meloxicam [Mobic] 15 mg PO DAILY 06/05/22 10/16/22 History Prazosin HCl 6 mg PO HS 06/05/22 10/16/22 History Isosorbide Mononitrate ER [Imdur] 30 mg PO DAILY #30 tab 06/08/22 10/16/22 Rx Acetaminophen Tab [Tylenol] 325 - 650 mg PO Q6H PRN 10/16/22 10/16/22 History Aspirin EC [Ecotrin] 325 mg PO QID PRN 10/16/22 10/16/22 History EPINEPHrine (Auto Inject) [Epipen] 0.3 mg IM ONCE PRN 10/16/22 10/16/22 History Allergies Allergy/AdvReac Type Severity Reaction Status Date / Time ketorolac tromethamine Allergy Rash/Hives/Swelling Verified 10/16/22 16:20 [From Toradol] at injection site venom-honey bee Allergy Anaphylaxis Verified 10/16/22 16:20 [bee venom (honey bee)] naproxen AdvReac Nausea & Verified 10/16/22 16:20 Vomiting & Diarrhea Physical Exam Vitals: Vital Signs Temp Pulse Pulse Resp BP BP Pulse Ox 10/17/22 07:00 97.3 F L 73 16 107/65 97 10/17/22 02:24 97.5 F L 96 17 115/73 94 L 10/16/22 21:15 97.6 F 95 18 116/75 95 10/16/22 20:35 98.2 F 74 16 128/74 98 10/16/22 18:18 70 20 126/87 100 10/16/22 16:04 67 18 102/68 97 10/16/22 15:14 73 18 114/95 96 10/16/22 14:15 97.9 F 90 18 115/77 98 Intake and Output 10/16/22 10/17/22 10/17/22 22:59 06:59 14:59 Other: Voiding Method Toilet # Voids 0 3 # Bowel Movements 1 Weight 124.738 kg Results CBC & Chem 7: 10/16/22 14:46 10/16/22 14:46 Labs: Abnormal Lab Results - Last 24 Hours (Table) 10/16/22 Range/Units 14:46 Sodium 136 L (137-145) mmol/L Glucose 108 H (74-99) mg/dL
[2022-10-17] MEDS: AMPICILLIN-SULBACTAM 3 GM in SODIUM CHLORIDE 0.9% 100 ML IVPB SCH ×2 (12:28→20:38)
[2022-10-17] MEDS: HYDROcodone/APAP 10-325MG 1 EACH TAB PO SCH ×2 (13:19→18:03)
[2022-10-17] MEDS: PRAZOSIN 1 MG CAP PO SCH (20:32)
--- NOTE | 2022-10-17 22:19 | P.GSCN ---
History of Present Illness Consult date: 10/17/22 Reason for Consult: cholelithiasis, r/o cholecystitis Requesting physician: Asha Graves History of present illness: This is a 41-year-old male who presents to the emergency department for chest pain, shortness of breath, and an irregular heartbeat. Patient states that when he woke up this morning, he had chest heaviness with minor difficulty breathing. He went to the [facility] to get blood work done, and he states that his heart rate was around 220 bpm and he was told that he had an irregular heart rhythm. He called his conflicts analyst, who advised he come to the office. When he was in his office, his heart rate was still elevated at around 220 bpm, and subsequently dropped into the 80s almost immediately without any cause. His conflicts analyst also noticed an irregular heart rate, and instructed him to come to the emergency department for evaluation. He had a cardiac catheterization here on 06/07 of this year and no stents were placed, however he was noted to have severe coronary vasospasm. He was then started on isosorbide. In addition to the chest pain, he has been experiencing epigastric and right upper quadrant pain over the last several days. States that the symptoms are worse today. Denies any associated nausea or vomiting. He has never been diagnosed with gallstones. He had an US in the ER showing only cholelithiasis, no thickened GB wall, No pericholecystic fluid, no sludge, and normal CBD his labs are normal, no leukocytosis, normal LFTs. exam is not convincing. started on CLD and he is tolerating diet recommend to advance diet as tolerted and d/c home my f/u with GI as an outpatinet for repeat EGD Denies any fevers, chills, sore throat, cough, palpitations, nausea, vomiting, diarrhea, back pain, or headaches. Review of Systems - Constitutional Denies anorexia, Denies chills, Denies chronic pain, Denies fatigue, Denies fever, Denies malaise, Denies sweats, Denies weakness - Cardiovascular Reports chest pain, Reports dyspnea on exertion, Reports high blood pressure, Reports irregular heart beat, Reports palpitations, Denies claudication, Denies edema, Denies leg edema, Denies paroxysmal nocturnal dyspnea, Denies shortness of breath - Respiratory Denies cough, Denies cough with sputum, Denies dyspnea, Denies excessive sputum, Denies hemoptysis, Denies home oxygen - Gastrointestinal Reports abdominal pain, Denies belching, Denies bloating, Denies BRBPR, Denies coffee ground emesis, Denies constipation, Denies diarrhea, Denies dyspepsia, Denies early satiety, Denies excessive gas, Denies heartburn, Denies h ematemesis, Denies hematochezia, Denies indigestion, Denies jaundice, Denies loss of appetite, Denies melena, Denies nausea, Denies vomiting Past Medical History Past Medical History: Coronary Artery Disease (CAD) Additional Past Medical History / Comment(s): chronic knee pain, back pain, RBBB, elevated heart rate. History of Any Multi-Drug Resistant Organisms: MRSA Year Discovered:: 2008 MDRO Source:: thumb Past Surgical History: Appendectomy, Back Surgery, Orthopedic Surgery Additional Past Surgical History / Comment(s): l4-5 fusion march 2020,l4-s1 fusion in 12/2021, carpel tunnnel release, vascectomy, skin graft knee surg x4, right hip surgery. lower bowel surgery Past Anesthesia/Blood Transfusion Reactions: No Reported Reaction Past Psychological History: Anxiety, Depression, PTSD Additional Psychological History / Comment(s): Pt resides with his spouse and 2 children. He is independent. He is retired. He served in the . Smoking Status: Former smoker Past Alcohol Use History: Occasional Additional Past Alcohol Use History / Comment(s): Patient was a smoker of half a pack per day for 10 years and quit in december 2019, and occasionally still smokes one or two. He denies any marijuana or street drug use. He drinks alcohol socially. He currently lives at home with his . He served in the [employer] and was in combat in [place]. Past Drug Use History: None Reported - Past Family History Father Family Medical History: No Reported History Additional Family Medical History / Comment(s): Father is alive at age 61 was no major medical problems. Mother Family Medical History: No Reported History Additional Family Medical History / Comment(s): Mother is alive at age 56 with history of spinal surgeries and neurological disorders. one sister with no major medical problems. Patient has 1 son and 1 daughter with no major medical problems. Medications and Allergies Home Medications Medication Instructions Recorded Confirmed Type PARoxetine HCL [Paxil] 60 mg PO DAILY 08/22/19 10/16/22 History traZODone HCL 150 mg PO HS PRN 10/09/20 10/16/22 History Ibuprofen [Motrin] 800 mg PO Q8H PRN 11/23/21 10/16/22 History Metoprolol Tartrate [Lopressor] 12.5 mg PO BID 11/23/21 10/16/22 History Gabapentin 600 mg PO TID 06/05/22 10/16/22 History HYDROcodone/APAP 10-325MG [[place] 1 tab PO QID 06/05/22 10/16/22 History 10-325] Meloxicam [Mobic] 15 mg PO DAILY 06/05/22 10/16/22 History Prazosin HCl 6 mg PO HS 06/05/22 10/16/22 History Isosorbide Mononitrate ER [Imdur] 30 mg PO DAILY #30 tab 06/08/22 10/16/22 Rx Acetaminophen Tab [Tylenol] 325 - 650 mg PO Q6H PRN 10/16/22 10/16/22 History Aspirin EC [Ecotrin] 325 mg PO QID PRN 10/16/22 10/16/22 History EPINEPHrine (Auto Inject) [Epipen] 0.3 mg IM ONCE PRN 10/16/22 10/16/22 History Allergies Allergy/AdvReac Type Severity Reaction Status Date / Time ketorolac tromethamine Allergy Rash/Hives/Swelling Verified 10/16/22 16:20 [From Toradol] at injection site venom-honey bee Allergy Anaphylaxis Verified 10/16/22 16:20 [bee venom (honey bee)] naproxen AdvReac Nausea & Verified 10/16/22 16:20 Vomiting & Diarrhea Surgical - Exam Vital Signs Temp Pulse Resp BP Pulse Ox 97.9 F 90 18 115/77 98 10/16/22 14:15 10/16/22 14:15 10/16/22 14:15 10/16/22 14:15 10/16/22 14:15 - General well developed, well nourished, no no pain, obese - Eyes PERRL, normal ocular movement - Cardiovascular Rhythm: regular Abnormal Heart Sounds: no rub - Abdomen Abdomen: soft, non tender, bowel sounds, surgical scars, no guarding, no rigid, no rebound, no distended - Neurologic normal coordination, normal sensation Results - Labs 10/16/22 14:46 10/16/22 14:46 Assessment and Plan (1) Coronary artery vasospasm Current Visit: Yes Status: Acute Code(s): I20.1 - ANGINA PECTORIS WITH DOCUMENTED SPASM SNOMED Code(s): 34889004 (2) Chest pain Current Visit: Yes Status: Acute Code(s): R07.9 - CHEST PAIN, UNSPECIFIED SNOMED Code(s): 64087495 (3) Cholelithiasis Narrative/Plan: He had an US in the ER showing only cholelithiasis, no thickened GB wall, No pericholecystic fluid, no sludge, and normal CBD his labs are normal, no leukocytosis, normal LFTs. exam is not convincing. started on CLD and he is tolerating diet recommend to advance diet as tolerated and d/c home my f/u with GI as an outpatinet for repeat EGD Denies any fevers, chills, sore throat, cough, palpitations, nausea, vomiting, diarrhea, back pain, or headaches. Current Visit: Yes Status: Acute Code(s): K80.20 - CALCULUS OF GALLBLADDER W/O CHOLECYSTITIS W/O OBSTRUCTION SNOMED Code(s): 772510959
[2022-10-18] MEDS: HYDROcodone/APAP 10-325MG 1 EACH TAB PO SCH ×5 (01:55→23:53)
[2022-10-18] MEDS: traZODone HCL 50 MG TAB PO PRN ×2 (02:17→23:53)
[2022-10-18] MEDS: HYDROmorphone 1 MG/ML 1 ML SYRINGE IVP PRN ×5 (02:17→22:08)
[2022-10-18] MEDS: AMPICILLIN-SULBACTAM 3 GM in SODIUM CHLORIDE 0.9% 100 ML IVPB SCH ×3 (04:27→20:56)
[2022-10-18] MEDS: GABAPENTIN 300 MG CAP PO SCH ×3 (09:23→20:56)
[2022-10-18] MEDS: ISOSORBIDE MONONITRATE ER 30 MG TAB.ER.24H PO SCH (09:23)
[2022-10-18] MEDS: METOPROLOL TARTRATE 12.5 MG TAB PO SCH ×2 (09:23→20:56)
[2022-10-18] MEDS: PARoxetine 20 MG TAB PO SCH (09:23)
[2022-10-18] MEDS: PANTOPRAZOLE 40 MG/10 ML VIAL IV SCH (09:24)
--- NOTE | 2022-10-18 11:54 | P.PN ---
Subjective Progress Note Date: 10/18/22 This is a pleasant 41-year-old gentleman who follows in the office with Dr. Kennedy. He has a past medical history of hypertension and severe coronary vasospasm noted on cardiac catheterization from June of this year. She woke up yesterday and overall just did not feel well. Had some right upper quadrant and epigastric discomfort. Went in for routine labs and was told that his heart rate was 220 and irregular. He decided to come to the emergency department and on examination was noted to have significant right upper quadrant tenderness which has continued. He's had no evidence of arrhythmia since admission. Chest x-ray showed no acute pulmonary process. Troponins have been negative 3. EKG showed sinus mechanism with no evidence of acute ischemia. He underwent ultrasound of the gallbladder which showed gallstones without secondary ultrasound evidence for acute cholecystitis and patient with right upper quadrant pain, it is not entirely excluded, consider HIDA scan follow-up. Labs show normal LFTs. Upon examination the patient is sitting up at the side of the bed. Continues to complain of right upper quadrant and epigastric discomfort with significant tenderness with light palpation of the right upper quadrant. Denies any complaints of palpitations, dizziness, shortness of breath, edema, orthopnea, PND or chest pain. He is currently on metoprolol tartrate 12.5 mg by mouth twice a day and isosorbide 30 mg by mouth daily which have been controlling his symptoms at home. Surgery has been consulted for possible cholecystectomy patient is awaiting evaluation at this time. 10/18/2022 Patient was seen and examined sitting up in bed. He was seen and evaluated yesterday by surgery and felt to not require intervention at this time and was recommended to undergo outpatient EGD. Patient continues to complain of right upper quadrant and epigastric pain as well as nausea, vomiting and diarrhea after eating. Denies any complaints of chest discomfort. His breathing has been stable and he has no edema. Vital signs are stable and he has been afebrile. Objective - Vital Signs Vital signs: Vital Signs Temp 98.1 F 10/18/22 07:00 Pulse 80 10/18/22 07:00 Resp 17 10/18/22 07:00 BP 113/72 10/18/22 07:00 Pulse Ox 96 10/18/22 07:00 FiO2 Intake & Output 10/17/22 10/18/22 10/18/22 18:59 06:59 18:59 Output Total 3 Balance -3 Output: Emesis 3 Other: Voiding Method Toilet # Voids 1 2 # Bowel Movements 2 - Exam HEENT: Head is atraumatic, normocephalic. Pupils are equal, round. Sclerae anicteric. Conjunctivae are clear. Mucous membranes of the mouth are moist. Neck is supple. There is no elevated jugular venous pressure. No carotid bruit is heard. CHEST EXAMINATION: Clear to auscultation bilaterally. No wheezes rales or rhonchi. Respirations even and nonlabored. HEART EXAMINATION: Heart regular, positive S1 and S2. No S3. No S4. No clicks, rubs or murmurs. ABDOMEN: Soft, right upper quadrant tenderness to light palpation. Bowel sounds are heard. No organomegaly noted. EXTREMITIES: 2+ peripheral pulses with no evidence of peripheral edema and no calf tenderness noted. NEUROLOGIC EXAMINATION: Patient is awake, alert and oriented x3. - Labs CBC & Chem 7: 10/16/22 14:46 10/16/22 14:46 Assessment and Plan Assessment: #1 right upper quadrant and epigastric pain with evidence of cholelithiasis, awaiting surgical evaluation #2 history of coronary vasospasms #3 hypertension Plan: From cardiology 's perspective no need for cardiac further cardiac workup at t his time. At this time we will follow the patient on an as-needed basis. Please do not hesitate to contact us with questions. NETWORK SERVICES PROJECT MANAGER note has been reviewed, I agree with a documented findings and plan of care. Patient was seen and examined.
[2022-10-18 13:25] LABS: Basophils # (A) 0.1 k/uL (0-0.2); Basophils % (A) 1 %; Eosinophils # (A) 0.3 k/uL (0-0.7); Eosinophils % (A) 4 %; HCT 43.7 % (39.0-53.0); HGB 14.8 gm/dL (13.0-17.5); Lymphocytes # (A) 2.7 k/uL (1.0-4.8); Lymphocytes % (A) 42 %; MCH 31.1 pg (25.0-35.0); MCHC 33.9 g/dL (31.0-37.0); MCV 91.9 fL (80.0-100.0); Mean Platelet Volume 7.9; Monocytes # (A) 0.4 k/uL (0-1.0); Monocytes % (A) 7 %; Neutrophils # (A) 2.8 k/uL (1.3-7.7); Neutrophils % (A) 44 %; Platelet Count 221 k/uL (150-450); RBC 4.75 m/uL (4.30-5.90); RDW 12.5 % (11.5-15.5); WBC 6.4 k/uL (3.8-10.6)
[2022-10-18 13:30] LABS: HGB 14.3 g/dL (13.0-17.0); MCH 30.7 pg (27.0-32.0); MCV 90.1 fL (80.0-97.0); Mean Platelet Volume 10.1 fL (9.5-12.2); NRBC Per 100 WBC 0 /100 WBCS (0.0-0.0); Platelet Count 229 X 10*3/uL (140-440); RBC 4.66 X 10*6/uL (4.40-5.60); WBC 6.22 X 10*3/uL (4.50-10.00)
[2022-10-18 13:42] LABS: ALT 31 U/L (4-49); AST 22 U/L (17-59); African American GFR (CKD) >90 (>60 ml/min/1.73 sqM); Albumin 4.2 g/dL (3.5-5.0); Albumin/Globulin Ratio 1.8; Alkaline Phosphatase 48 U/L (38-126); Anion Gap 9 mmol/L; Blood Urea Nitrogen 13 mg/dL (9-20); Calcium 8.9 mg/dL (8.4-10.2); Carbon Dioxide 24 mmol/L (22-30); Chloride 103 mmol/L (98-107); Globulin 2.4 g/dL; Glucose 71 mg/dL (74-99); Non-African American GFR(CKD) >90 (>60 ml/min/1.73 sqM); Potassium 4.2 mmol/L (3.5-5.1); Sodium 136 mmol/L (137-145); Total Bilirubin 0.6 mg/dL (0.2-1.3); Total Protein 6.6 g/dL (6.3-8.2)
[2022-10-18 13:43] LABS: African American GFR (CKD) 124.3 (60.0-200.0); Albumin/Globulin Ratio 2.22 (1.60-3.17); Anion Gap 8.4 mmol/L (10.00-18.00); Blood Urea Nitrogen 13.5 mg/dL (9.0-27.0); Calcium 9.3 mg/dL (8.7-10.3); Carbon Dioxide 25.6 mmol/L (20.0-27.5); Globulin 1.8 g/dL (1.6-3.3); Non-African American GFR(CKD) 107.2 (60.0-200.0); Potassium 4.5 mmol/L (3.5-5.5); Total Bilirubin 0.3 mg/dL (0.30-1.20); Total Protein 5.8 g/dL (6.2-8.2)
--- NOTE | 2022-10-18 15:58 | P.PN ---
Subjective Progress Note Date: 10/18/22 Principal diagnosis: epigastric pain 41 year old male with coronary artery spasm disease followed by groover and turner, admitted for work up of chest pain, tachycardia, and irregular heart rhythm was asked by his groover and turner to present to the emergency room. In the ER patient's work up was negative for chest pain. An abdominal ultrasound showed an incidental finding of cholelithiasis with no other finding to suggest cholecystitis (no thickened gall bladder wall, no pericholecystic fluid, normal common bile duct). All of patient's labs are normal and his initial exam by me was normal. Patient was started on clear liquid diet yesterday. He reported vomiting and diarrhea. Repeat labs this morning show no leukocystosis, and normal liver function tests. I will recommend HIDA scan and EGD if the HIDA scan is negative. No immediate surgical intervention at this point. Objective - Vital Signs Vital signs: Vital Signs Temp 98.1 F 10/18/22 07:00 Pulse 80 10/18/22 07:00 Resp 17 10/18/22 07:00 BP 113/72 10/18/22 07:00 Pulse Ox 96 10/18/22 07:00 FiO2 Intake & Output 10/17/22 10/18/22 10/18/22 18:59 06:59 18:59 Intake Total 300 Output Total 3 Balance -3 300 Intake: Oral 300 Output: Emesis 3 Other: Voiding Method Toilet # Voids 1 2 # Bowel Movements 2 - Constitutional General appearance: Present: cooperative, no acute distress, obese - EENT Eyes: Present: PERRLA. Absent: scleral icterus - Gastrointestinal General gastrointestinal: Present: normal bowel sounds, soft. Absent: distended, tenderness - Labs CBC & Chem 7: 10/18/22 13:12 10/18/22 13:12 Assessment and Plan (1) Coronary artery vasospasm Current Visit: Yes Status: Acute Code(s): I20.1 - ANGINA PECTORIS WITH DOCUMENTED SPASM SNOMED Code(s): 03258557 (2) Chest pain Current Visit: Yes Status: Acute Code(s): R07.9 - CHEST PAIN, UNSPECIFIED SNOMED Code(s): 90717219 (3) Cholelithiasis Narrative/Plan: 41 year old male with coronary artery spasm disease followed by groover and turner, admitted for work up of chest pain, tachycardia, and irregular heart rhythm was asked by his groover and turner to present to the emergency room. In the ER patient's work up was negative for chest pain. An abdominal ultrasound showed an incidental finding of cholelithiasis with no other finding to suggest ch olecystitis (no thickened gall bladder wall, no pericholecystic fluid, normal common bile duct). All of patient's labs are normal and his initial exam by me was normal. Patient was started on clear liquid diet yesterday. He reported vomiting and diarrhea. Repeat labs this morning show no leukocystosis, and normal liver function tests. I will recommend HIDA scan and EGD if the HIDA scan is negative. No immediate surgical intervention at this point. Current Visit: Yes Status: Acute Code(s): K80.20 - CALCULUS OF GALLBLADDER W/O CHOLECYSTITIS W/O OBSTRUCTION SNOMED Code(s): 789046192
[2022-10-18] MEDS: PRAZOSIN 1 MG CAP PO SCH (20:56)
--- NOTE | 2022-10-18 22:53 | P.PN ---
Subjective Progress Note Date: 10/18/22 41-year-old male in with compensative severe right upper quadrant abdominal pain without any fever doesn't have any leukocytosis. Patient is found to have cholelithiasis and cholecystitis on the computed tomography scan of the abdomen patient's Crook's sign is positive. Neurosurgery was consulted. Patient was started on IV fluids Protonix, and Unasyn. Patient is on metoprolol and isosorbide. Patient had history of coronary vasospasm in the past. Patient was having nausea as well. 10/18/2022 Patient is evaluated today sitting in bed. He had diet advanced yesterday he did well with jello and full liquid however he ate a ham sandwich and had 3 episodes of emesis as well as 3 episodes of diarrhea afterwards. He had increase in right upper quadrant abdominal pain afterwards which was eventually controlled with IV pain medication. Patient was evaluated by general surgery who currently recomme nding no surgical intervention. However, patient does have significant abdominal pain with palpation and also rebound tenderness in the right upper quadrant. His repeat labs are currently pending from today. Review of Systems Constitutional: Denied any fatigue denied any fever. Cardio vascular: denied any chest pain, palpitations Gastrointestinal: denied any nausea, vomiting and diarrhea post meal. RUQ abdominal pain with epigastric radiation 05/10 Pulmonary: Denied any shortness of breath cough Neurologic denied any new focal deficits All inpatient medications were reviewed and appropriate changes in these medications as dictated in the interval history and assessment and plan. PHYSICAL EXAMINATION: GENERAL: The patient is alert and oriented x3, not in any acute distress. Well developed, well nourished. HEENT: Pupils are round and equally reacting to light. EOMI. No scleral icterus. No conjunctival pallor. Normocephalic, atraumatic. No pharyngeal erythema. No thyromegaly. CARDIOVASCULAR: S1 and S2 present. No murmurs, rubs, or gallops. PULMONARY: Chest is clear to auscultation, no wheezing or crackles. ABDOMEN: Right require upper quadrant abdominal pain no rigidity Crook's sign positive there is some rebound normoactive bowel sounds. No palpable organomegaly. MUSCULOSKELETAL: No joint swelling or deformity. EXTREMITIES: No cyanosis, clubbing, or pedal edema. NEUROLOGICAL: Gross neurological examination did not reveal any focal deficits. SKIN: No rashes. Assessment and plan -Cholelisthiasis without evidence of acute cholecysitits. Increased pain with nausea and vomiting with increased diet -Right upper quadrant and epigastric pain secondary to above -History of coronary vasospasm in the past -Hypertension -Depression -obesity GI prophylaxis DVT prophylaxis: Lovenox after surgery Full Code Plan Reevaluation by general surgery today. Diet decreased to liquid diet. Pain management and GI prophylaxis on board. Patient scheduled to undergo HIDA scan tomorrow with further recommendations pending. The impression and plan of care has been dictated by Peyton Tran, Nurse Practitioner as directed. Dr. Wanda MD I have performed a history and physical examination and medical decision making of this patient, discussed the same with the dictator, and agree with the dictators assessment and plan as written, documented as a scribe. Based on total visit time, I have performed more than 50% of this visit. Objective - Vital Signs Vital signs: Vital Signs Temp 98.1 F 10/18/22 07:00 Pulse 80 10/18/22 07:00 Resp 17 10/18/22 07:00 BP 113/72 10/18/22 07:00 Pulse Ox 96 10/18/22 07:00 FiO2 Intake & Output 10/17/22 10/18/22 10/18/22 18:59 06:59 18:59 Intake Total 300 Output Total 3 Balance -3 300 Intake: Oral 300 Output: Emesis 3 Other: Voiding Method Toilet # Voids 1 2 # Bowel Movements 2 - Labs CBC & Chem 7: 10/18/22 13:12 10/18/22 13:12 Assessment and Plan Time with Patient: Less than 30
[2022-10-19] MEDS: AMPICILLIN-SULBACTAM 3 GM in SODIUM CHLORIDE 0.9% 100 ML IVPB SCH ×3 (04:28→20:36)
[2022-10-19] MEDS: ISOSORBIDE MONONITRATE ER 30 MG TAB.ER.24H PO SCH (09:46)
[2022-10-19] MEDS: GABAPENTIN 300 MG CAP PO SCH ×3 (09:46→22:40)
[2022-10-19] MEDS: HYDROcodone/APAP 10-325MG 1 EACH TAB PO SCH ×4 (09:46→22:38)
[2022-10-19] MEDS: PANTOPRAZOLE 40 MG/10 ML VIAL IV SCH (09:46)
[2022-10-19] MEDS: METOPROLOL TARTRATE 12.5 MG TAB PO SCH ×2 (09:46→20:37)
[2022-10-19] MEDS: PARoxetine 20 MG TAB PO SCH (09:47)
[2022-10-19] MEDS: HYDROmorphone 1 MG/ML 1 ML SYRINGE IVP PRN ×2 (09:48→23:19)
--- NOTE | 2022-10-19 10:03 | NM ---
EXAMINATION TYPE: NM hepatobiliary w CCK DATE OF EXAM: 10/19/2022 COMPARISON: Ultrasound gallbladder 3 days ago HISTORY: Right upper quadrant pain. TECHNIQUE: After the intravenous administration of 5.3 mCi Tc 99m Mebrofenin hepatobiliary scintigrap hy is performed. Immediate images post injection. FINDINGS: There is satisfactory initial accumulation of tracer by the liver. The gallbladder is visualized wit hin 120 minutes. The small bowel activity is noted within 30 minutes. At 2 hours CCK was administer ed, patient was injected with 2.5 mcg of Kinevac, and gallbladder ejection fraction is calculated at 17 %, diminished from the normal range. Therefore there is no scintigraphic evidence of cystic or co mmon bile duct obstruction to suggest acute cholecystitis . IMPRESSION: Ejection fraction is 17%, diminished from the normal range, scintigraphic findings consis tent with underlying gallbladder hypokinesia. Consider surgical exploration.
--- NOTE | 2022-10-19 13:13 | P.PN ---
Subjective Progress Note Date: 10/19/22 Principal diagnosis: Abdominal pain Patient is seen on rounds. Continuing to complain of abdominal pain. No vomiting Objective - Vital Signs Vital signs: Vital Signs Temp 97.5 F L 10/19/22 09:40 Pulse 72 10/19/22 09:40 Resp 16 10/19/22 09:40 BP 102/62 10/19/22 09:40 Pulse Ox 98 10/19/22 09:40 FiO2 Intake & Output 10/18/22 10/19/22 10/19/22 18:59 06:59 18:59 Intake Total 300 1150 Output Total 50 Balance 250 1150 Intake: Oral 300 1150 Output: Emesis 50 Other: Voiding Method Toilet Toilet # Voids 6 - Constitutional General appearance: Present: cooperative, no acute distress - Gastrointestinal Localized gastrointestinal: tender: RUQ, epigastric periumbilical - Labs CBC & Chem 7: 10/18/22 13:12 10/18/22 13:12 Labs: Abnormal Lab Results - Last 24 Hours (Table) 10/18/22 10/18/22 Range/Units 07:51 13:12 Sodium 136 L (137-145) mmol/L Anion Gap 8.40 L (10.00-18.00) mmol/L Glucose 71 L (74-99) mg/dL Total Protein 5.8 L (6.2-8.2) g/dL Assessment and Plan (1) Biliary dyskinesia Current Visit: Yes Status: Acute Code(s): K82.8 - OTHER SPECIFIED DISEASES OF GALLBLADDER SNOMED Code(s): 925284505 (2) Cholelithiasis Current Visit: Yes Status: Acute Code(s): K80.20 - CALCULUS OF GALLBLADDER W/O CHOLECYSTITIS W/O OBSTRUCTION SNOMED Code(s): 315673884 Plan: Patient is having persistent abdominal pain. Ultrasound shows cholelithiasis without cholecystitis. His HIDA scan showed marked decrease in ejection fraction of 17%. Symptoms are likely related to symptomatic biliary dyskinesia. We discussed surgical treatment. The procedure, risks and complications were discussed. Questions were encouraged and answered. The patient has had lower midline laparotomy so there is a chance that a traditional open cholecystectomy need to be performed. Like to proceed with surgery.
[2022-10-19] MEDS ORDERED: HEPARIN SODIUM,PORCINE/PF 5,000 UNIT/0.5 ML SYRINGE SQ ONE (13:37)
[2022-10-19] MEDS ORDERED: LACTATED RINGERS 1,000 ML IV ONE ×2 (13:50→15:23)
[2022-10-19] MEDS ORDERED: ONDANSETRON 4 MG/2 ML VIAL IVP ONE (14:00)
[2022-10-19] MEDS ORDERED: DEXAMETHASONE SOD PHOSPHATE 4 MG/ML 1 ML VIAL IVP ONE (14:00)
[2022-10-19 14:06] LABS: Glucose,Whole Blood 91 mg/dL (70-110)
[2022-10-19] MEDS ORDERED: fentaNYL (PF) 50 MCG/1 ML VIAL IVP ONE (14:09)
[2022-10-19] MEDS ORDERED: fentaNYL (PF) 50 MCG/ML 2 ML AMP ONE (14:20)
[2022-10-19] MEDS ORDERED: NEOSTIGMINE 1 MG/ML 10 ML VIAL ONE (14:20)
[2022-10-19] MEDS ORDERED: PROPOFOL 10 MG/ML 20 ML VIAL IV ONE (14:20)
[2022-10-19] MEDS ORDERED: LIDOCAINE 2% INJ 20 MG/ML (2 ML VIAL) ONE (14:20)
[2022-10-19] MEDS ORDERED: SUCCINYLCHOLINE CHLORIDE 200 MG/10 ML VIAL IV ONE (14:20)
[2022-10-19] MEDS ORDERED: MIDAZOLAM 2 MG/2 ML VIAL ONE (14:20)
[2022-10-19] MEDS ORDERED: ROCURONIUM 10 MG/ML (5 ML VIAL) IV ONE (14:20)
[2022-10-19] MEDS ORDERED: GLYCOPYRROLATE 0.2 MG/ML 2 ML VIAL ONE (14:20)
[2022-10-19] MEDS ORDERED: BUPIVACAINE (PF) 0.25% 30 ML VIAL SQ ONE ×4 (14:49)
[2022-10-19] MEDS ORDERED: LIDOCAINE 1%-EPI 1:100,000 20 ML VIAL SQ ONE ×4 (14:49)
--- NOTE | 2022-10-19 15:46 | P.OP ---
Date of Procedure: 10/19/22 Preoperative Diagnosis: Cholelithiasis, biliary colic Postoperative Diagnosis: Cholelithiasis, biliary colic Anesthesia: SUDARSHAN Surgeon: Yoli Lyons Estimated Blood Loss (ml): 25 Pathology: other Condition: stable Disposition: PACU Indications for Procedure: Patient presented with workup showing cholelithiasis without acute cholecystitis. HIDA scan showed diminished ejection fraction at 14%. He is having persistent pain and nausea Operative Findings: Patient's taken the operative suite was prepped and draped in usual sterile manner under a general endotracheal anesthetic. A supraumbilical incision was made. The fascia was grasped and incised. The peritoneum was grasped and incised. A finger sweep was carried out. There is some adherent omentum which was bluntly taken down. Until there was an area open to allow for insertion of a balloon trocar. Pneumoperitoneum was established with CO2 gas. Sites are chosen for accessory trochars needs are placed through small skin incisions. The adhesions of the omentum in the midline otherwise the liver, diaphragm, large and small bowel were normal where they were seen. There were adhesions of the omentum to the gallbladder which were taken down. The fundus of the gallbladder is grasped and retracted superiorly. Louis's pouch is then identified, it is grasped and retracted laterally. The cystic duct and cystic artery are dissected free. They're triply clipped and cut. The cystic duct was further secured with 0 PDS Endoloop. The gallbladder is then dissected free from the liver bed. Small bleeding points were controlled with electrocautery. The gallbladder is removed through the umbilical port site. The liver bed is reexamined and noted to be hemostatic. The excess irrigant is suctioned out. The pneumoperitoneum was released. The trochars were removed. The fascia at the umbilicus was closed with 0 Vicryl. The skin was closed with gregory. Sterile dressings were applied. He tolerated the procedure without difficulty and was taken to recovery room in satisfactory condition. According to or personnel, all counts were correct
[2022-10-19] MEDS ORDERED: HYDROmorphone 0.5 MG/0.5 ML SYRINGE IVP ONE ×4 (15:59→17:30)
--- NOTE | 2022-10-19 17:21 | P.PN ---
Subjective Progress Note Date: 10/19/22 41-year-old male in with compensative severe right upper quadrant abdominal pain without any fever doesn't have any leukocytosis. Patient is found to have cholelithiasis and cholecystitis on the computed tomography scan of the abdomen patient's Crook's sign is positive. Neurosurgery was consulted. Patient was started on IV fluids Protonix, and Unasyn. Patient is on metoprolol and isosorbide. Patient had history of coronary vasospasm in the past. Patient was having nausea as well. 10/18/2022 Patient is evaluated today sitting in bed. He had diet advanced yesterday he did well with jello and full liquid however he ate a ham sandwich and had 3 episodes of emesis as well as 3 episodes of diarrhea afterwards. He had increase in right upper quadrant abdominal pain afterwards which was eventually controlled with IV pain medication. Patient was evaluated by general surgery who currently recomme nding no surgical intervention. However, patient does have significant abdominal pain with palpation and also rebound tenderness in the right upper quadrant. His repeat labs are currently pending from today. 10/19/2022 Patient is evaluated this morning sitting up in bed. He has sharp right upper quadrant pain rating it an 8/10 and states it was hard to control with IV pain medication last night. He had HIDA scan today showing gallbladder EF 14% consistent with gallbladder hypokinesia, no evidence for acute cholecystitis. Patient is taken for laproscopic cholecystectomy today secondary to ch olelisthiasis and biliary colic. Remains hemodynamically stable. Review of Systems Constitutional: Denied any fatigue denied any fever. Cardio vascular: denied any chest pain, palpitations Gastrointestinal: denied any nausea, vomiting and diarrhea post meal. RUQ abdominal pain with epigastric radiation 8/10, sharp. Pulmonary: Denied any shortness of breath cough Neurologic denied any new focal deficits All inpatient medications were reviewed and appropriate changes in these medications as dictated in the interval history and assessment and plan. PHYSICAL EXAMINATION: GENERAL: The patient is alert and oriented x3, not in any acute distress. Well developed, well nourished. HEENT: Pupils are round and equally reacting to light. EOMI. No scleral icterus. No conjunctival pallor. Normocephalic, atraumatic. No pharyngeal erythema. No thyromegaly. CARDIOVASCULAR: S1 and S2 present. No murmurs, rubs, or gallops. PULMONARY: Chest is clear to auscultation, no wheezing or crackles. ABDOMEN: Right require upper quadrant abdominal pain no rigidity Crook's sign positive there is some rebound normoactive bowel sounds. No palpable organomegaly. MUSCULOSKELETAL: No joint swelling or deformity. EXTREMITIES: No cyanosis, clubbing, or pedal edema. NEUROLOGICAL: Gross neurological examination did not reveal any focal deficits. SKIN: No rashes. Assessment and plan -Cholelisthiasis without evidence of acute cholecysitits. HIDA scan reveals gallbladder hypokinesia with EF 14%. -Right upper quadrant and epigastric pain secondary to above -History of coronary vasospasm in the past -Hypertension -Depression -obesity GI prophylaxis DVT prophylaxis: Lovenox after surgery Full Code Plan Reevaluation by general surgery today status post HIDA scan and patient is taken for laproscopic cholecystectomy. Pain management and GI prophylaxis on board. Possible DC in the next 24 to 48 hours. The impression and plan of care has been dictated by Peyton Tran, Nurse Practitioner as directed. Dr. Wanda MD I have performed a history and physical examination and medical decision making of this patient, discussed the same with the dictator, and agree with the dic tators assessment and plan as written, documented as a scribe. Based on total visit time, I have performed more than 50% of this visit. Objective - Vital Signs Vital signs: Vital Signs Temp 97 F L 10/19/22 15:53 Pulse 81 10/19/22 17:14 Resp 16 10/19/22 17:14 BP 122/67 10/19/22 17:14 Pulse Ox 96 10/19/22 17:14 FiO2 Intake & Output 10/18/22 10/19/22 10/19/22 18:59 06:59 18:59 Intake Total 300 1150 1000 Output Total 50 12 Balance 250 1150 988 Intake: IV 1000 Oral 300 1150 Output: Emesis 50 Estimated Blood Loss 12 Other: Voiding Method Toilet Toilet # Voids 6 - Labs CBC & Chem 7: 10/18/22 13:12 10/18/22 13:12 Assessment and Plan Time with Patient: Less than 30
[2022-10-19] MEDS: PRAZOSIN 1 MG CAP PO SCH (20:37)
[2022-10-20] MEDS: traZODone HCL 50 MG TAB PO PRN (00:43)
[2022-10-20] MEDS: AMPICILLIN-SULBACTAM 3 GM in SODIUM CHLORIDE 0.9% 100 ML IVPB SCH ×2 (03:12→11:58)
[2022-10-20] MEDS: HYDROmorphone 1 MG/ML 1 ML SYRINGE IVP PRN ×4 (03:12→15:40)
[2022-10-20 08:09] VITALS: RESP 18
[2022-10-20] MEDS: PANTOPRAZOLE 40 MG/10 ML VIAL IV SCH (08:40)
[2022-10-20] MEDS: PARoxetine 20 MG TAB PO SCH (08:41)
[2022-10-20] MEDS: GABAPENTIN 300 MG CAP PO SCH ×2 (08:41→15:47)
[2022-10-20] MEDS: METOPROLOL TARTRATE 12.5 MG TAB PO SCH (08:42)
[2022-10-20] MEDS: HYDROcodone/APAP 10-325MG 1 EACH TAB PO SCH ×3 (08:42→18:04)
[2022-10-20] MEDS: ISOSORBIDE MONONITRATE ER 30 MG TAB.ER.24H PO SCH (08:42)
[2022-10-20 14:06] VITALS: BP 117/70; PULSE 77; TEMP 97.9
--- NOTE | 2022-10-20 18:57 | P.PN ---
Subjective Progress Note Date: 10/20/22 Principal diagnosis: Postoperative day 1 lap ambrocio The patient is seen on rounds. He's tolerating a diet without nausea or vomiting. He is having expected incisional pain. He still using some Dilaudid. Typically he's been taking [place] 10-325's 4 times a day at home. Objective - Vital Signs Vital signs: Vital Signs Temp 97.9 F 10/20/22 14:05 Pulse 77 10/20/22 14:05 Resp 18 10/20/22 14:05 BP 117/70 10/20/22 14:05 Pulse Ox 95 10/20/22 14:05 FiO2 Intake & Output 10/19/22 10/20/22 10/20/22 18:59 06:59 18:59 Intake Total 1000 354 Output Total 12 Balance 988 354 Intake: IV 1000 Oral 354 Output: Estimated Blood Loss 12 Other: Voiding Method Toilet Toilet # Voids 2 5 - Constitutional General appearance: Present: cooperative, no acute distress - Gastrointestinal General gastrointestinal: Present: normal bowel sounds, soft Localized gastrointestinal: surgical scar: diffuse (Dressings are intact, clean and dry) - Labs CBC & Chem 7: 10/18/22 13:12 10/18/22 13:12 Assessment and Plan (1) Biliary dyskinesia Current Visit: Yes Status: Acute Code(s): K82.8 - OTHER SPECIFIED DISEASES OF GALLBLADDER SNOMED Code(s): 884623155 (2) Cholelithiasis Current Visit: Yes Status: Acute Code(s): K80.20 - CALCULUS OF GALLBLADDER W/O CHOLECYSTITIS W/O OBSTRUCTION SNOMED Code(s): 462055636 Plan: Patient is doing well from a surgical standpoint and will be discharged home. I explained he does have intolerance to the [place] so it will not work as well for perioperative pain. Ask him to take Motrin 800, which he has at home, 3 times a day for the next 1-2 weeks. Questions were encouraged and answered
--- NOTE | 2022-10-21 23:29 | P.DS ---
Providers Date of admission: 10/16/22 20:01 Attending physician: Hardik Leger Consults: 10/16/22 20:01 Consult Physician Urgent Consulting Provider: Eliseo Qiu Consult Reason/Comments: History of coronary vasospasm, possible surgical clearance Do you want consulting provider notified?: Yes, Notify in am Consult Physician Urgent Consulting Provider: Dylon Almazan Consult Reason/Comments: Symptomatic cholelithiasis Do you want consulting provider notified?: Already Contacted 10/19/22 13:08 Consult Physician Routine Consulting Provider: Yoli Lyons Consult Reason/Comments: cholelithiasis Do you want consulting provider notified?: Already Contacted Primary care physician: Nik Mcfarlane [facility] Course: Final Diagnosis -HIDA scan reveals gallbladder hypokinesia with EF 14%, also cholelisthiasis without cholecystitis. Surgical pathology does reveal a mild chronic cholecystitis. -Postoperative day #1 laproscopic cholecystectomy -Right upper quadrant and epigastric pain secondary to above -History of coronary vasospasm in the past -Hypertension -Depression -obesity Full Code Discharge Disposition Patient is stable for discharge. Has been cleared by surgical services. Recommended to continue on low fat diet. He has been discharged on norco with a 3 day supply and recommend to continue on a stool softener. Hospital Course This is a 41-year-old male with medical history of hypertension and known coronary vasospasm who presents to the hospital with with compensative severe right upper quadrant abdominal pain without any fever doesn't have any leukocytosis. Patient is on metoprolol and isosorbide which is continued. Patient is found to have cholelithiasis and cholecystitis on the computed tomography scan of the abdomen patient's Crook's sign is positive. He had no el evation in his liver enzymes, total bili is normal at 0.30. He had troponins drawn which were negative. General-surgery was consulted. Patient was started on IV fluids, Protonix, and Unasyn. Patient was having nausea as well. Surgery initially recommended to monitor and advanced diet, however patient had experienced nausea, vomiting, diarrhea, and increased right upper quadrant pain with advanced diet. HIDA scan was performed showing gallbladder hypokinesia with an EF of 14%. He underwent laproscopic cholecystectomy and has significant improvement in his abdominal pain down to about a 3/10 and reports the pain not as sharp today more as a dull ache at the incision site. No longer has right upper quadrant pain. Pathology reveals mild chronic cholecystitis without cholelisthiasis. Has remained afebrile. Vitals stable. 10/20/2021 Patient evaluated today sitting up in bed. Abdominal pain has improved rating it 3/10. He has been passing gas today. Urinating without difficult. He has been up ambulating and diet has been advanced. Using oral pain medications. Denies shortness of breath, denies chest pain. Denies nausea, vomiting or diarrhea today. His lungs are clear, S1 S2 are auscultated. Abdomen is soft with normoactive bowel sounds. Mild incisional tenderness. He would like to be discharged home today and has been cleared by surgical services. Recommend to see his primary care provider in 1 to 2 days. He remains afebrile, heart rate 77, blood pressure 117/70, 95% on room air. Please see medication reconciliation for a list of current medications. Thank you for allowing us to participate in the care of this patient. The impression and plan of care has been dictated by Peyton Tran, Nurse Practitioner as directed. Dr. Wanda MD I have performed a history and physical examination and medical decision making of this patient, discussed the same with the dictator, and agree with the dictators assessment and plan as written, documented as a scribe. Based on total visit time, I have performed more than 50% of this visit. Patient Condition at Discharge: Stable Plan - Discharge Summary New Discharge Prescriptions: New HYDROcodone/APAP 7.5-325MG [[place] 7.5-325] 1 tab PO Q4H PRN 3 Days #18 tab PRN Reason: Pain Metoprolol Tartrate [Lopressor] 12.5 mg PO BID tab Continue PARoxetine HCL [Paxil] 60 mg PO DAILY traZODone HCL 150 mg PO HS PRN PRN Reason: Insomnia Gabapentin 600 mg PO TID Isosorbide Mononitrate ER [Imdur] 30 mg PO DAILY #30 tab Prazosin HCl 6 mg PO HS Acetaminophen Tab [Tylenol] 325 - 650 mg PO Q6H PRN PRN Reason: Fever And/ Or Pain Aspirin EC [Ecotrin] 325 mg PO QID PRN PRN Reason: Fever And/ Or Pain EPINEPHrine (Auto Inject) [Epipen] 0.3 mg IM ONCE PRN PRN Reason: Anaphylaxis Discontinued Ibuprofen [Motrin] 800 mg PO Q8H PRN PRN Reason: Pain HYDROcodone/APAP 10-325MG [[place] 10-325] 1 tab PO QID Meloxicam [Mobic] 15 mg PO DAILY Metoprolol Tartrate [Lopressor] 12.5 mg PO BID Discharge Medication List PARoxetine HCL [Paxil] 60 mg PO DAILY 08/22/19 [History] traZODone HCL 150 mg PO HS PRN 10/09/20 [History] Gabapentin 600 mg PO TID 06/05/22 [History] Prazosin HCl 6 mg PO HS 06/05/22 [History] Isosorbide Mononitrate ER [Imdur] 30 mg PO DAILY #30 tab 06/08/22 [Rx] Acetaminophen Tab [Tylenol] 325 - 650 mg PO Q6H PRN 10/16/22 [History] Aspirin EC [Ecotrin] 325 mg PO QID PRN 10/16/22 [History] EPINEPHrine (Auto Inject) [Epipen] 0.3 mg IM ONCE PRN 10/16/22 [History] HYDROcodone/APAP 7.5-325MG [[place] 7.5-325] 1 tab PO Q4H PRN 3 Days #18 tab 10/19/22 [Rx] Metoprolol Tartrate [Lopressor] 12.5 mg PO BID tab 10/20/22 [Rx] Follow up Appointment(s)/Referral(s): Yoli Lyons DO [Doctor of Osteopathic Medicine] - (1-2 weeks for staple removal) Nik Paula MD [Primary Care Provider] - 1-2 days Activity/Diet/Wound Care/Special Instructions: You may shower starting Wednesday. It's okay to get incisions wet. Dry. Cover with a small dressing if the incisions are rubbing on your clothing or draining. Follow a low-fat diet. No heavy lifting more than 10 pounds[address] while taking pain medication. Call if questions or concerns. Discharge Disposition: HOME SELF-CARE
== END 2022-10-20 19:11 | disposition home or self-care (01) ==
LOC: EC 14:06 → 6NMEDSUR 20:01
PROVIDERS: ADMIT Hospitalist; ATTEND Hospitalist
DX: K80.10 Calculus of gallbladder with chronic cholecystitis without obstruction (principal); K66.0 Peritoneal adhesions (postprocedural) (postinfection); I25.111 Atherosclerotic heart disease of native coronary artery with angina pectoris with documented spasm; F32.A Depression, unspecified; F43.10 Post-traumatic stress disorder, unspecified; F41.9 Anxiety disorder, unspecified; I10 Essential (primary) hypertension; E66.9 Obesity, unspecified; Z87.891 Personal history of nicotine dependence; Z79.899 Other long term (current) drug therapy; Z79.1 Long term (current) use of non-steroidal anti-inflammatories (NSAID); Z88.6 Allergy status to analgesic agent
CPT/HCPCS: 96365; 96366 ×3; 96375 ×2; 96376 ×5; 99285; 36415; 93005; 85379; 88304; 80053 ×2; 82150; 83690; 83735; 84484 ×2; 85025 ×2; 85027; 85610; 85730; 81003; 71046; 76705; 78227; 47562; G0378 ×5; A9537; J2250; J0330; J1100; J2710; J2405 ×2; J2805; J3010 ×2; J2270; J1170 ×8; J0295 ×4; J2704; C9113 ×4; J2001

== ENCOUNTER 2022-10-22 23:06 | Inpatient (IN) | payer OTHER, MEDICARE ==
[2022-10-22] MEDS ORDERED: ONDANSETRON 4 MG/2 ML VIAL IVP STA (23:16)
[2022-10-22] MEDS ORDERED: SODIUM CHLORIDE 0.9% 1,000 ML IV STA (23:16)
[2022-10-22] MEDS ORDERED: MORPHINE SULFATE 4 MG/ML SYRINGE IVP STA (23:17)
--- NOTE | 2022-10-22 23:17 | ED ---
Recheck HPI - General Chief Complaint: Abdominal Pain Stated Complaint: Post-op pain, vomiting Time Seen by Provider: 10/22/22 23:16 Source: patient, RN notes reviewed, old records reviewed Mode of arrival: ambulatory Limitations: no limitations - History of Present Illness Initial Comments: This is a 41-year-old male to the emergency department for evaluation presents today for evaluation regards to postop pain postoperative abdominal pain with nausea vomiting and diarrhea. Patient has intervening medical history of recent surgery, patient recent gallbladder removal. Patient surgery was done here [facility]. He has been on for a few days ago having increasing nausea vomiting abdominal pain. No travel history no sick contacts no fevers no other complaints MD Complaint: other (Nausea vomiting diarrhea pain control) -: days(s) Returns Today for: persistent/worsening pain related to initial visit Symptoms Since Prior Visit: no new symptoms Associated Symptoms: nausea, abdominal pain Treatments Prior to Arrival: other (0) - Related Data Home Medications Medication Instructions Recorded Confirmed PARoxetine HCL [Paxil] 60 mg PO DAILY 08/22/19 10/16/22 traZODone HCL 150 mg PO HS PRN 10/09/20 10/16/22 Gabapentin 600 mg PO TID 06/05/22 10/16/22 Prazosin HCl 6 mg PO HS 06/05/22 10/16/22 Acetaminophen Tab [Tylenol] 325 - 650 mg PO Q6H PRN 10/16/22 10/16/22 Aspirin EC [Ecotrin] 325 mg PO QID PRN 10/16/22 10/16/22 EPINEPHrine (Auto Inject) [Epipen] 0.3 mg IM ONCE PRN 10/16/22 10/16/22 Previous Rx's Medication Instructions Recorded Isosorbide Mononitrate ER [Imdur] 30 mg PO DAILY #30 tab 06/08/22 HYDROcodone/APAP 7.5-325MG [[place] 1 tab PO Q4H PRN 3 Days #18 tab 10/19/22 7.5-325] Metoprolol Tartrate [Lopressor] 12.5 mg PO BID tab 10/20/22 Allergies Allergy/AdvReac Type Severity Reaction Status Date / Time ketorolac tromethamine Allergy Rash/Hives/Swelling Verified 10/22/22 23:10 [From Toradol] at injection site venom-honey bee Allergy Anaphylaxis Verified 10/22/22 23:10 [bee venom (honey bee)] naproxen AdvReac Nausea & Verified 10/22/22 23:10 Vomiting & Diarrhea Review of Systems ROS Statement: Those systems with pertinent positive or pertinent negative responses have been documented in the HPI. ROS Other: All systems not noted in ROS Statement are negative. Past Medical History Past Medical History: Coronary Artery Disease (CAD) Additional Past Medical History / Comment(s): chronic knee pain, back pain, RBBB, elevated heart rate. History of Any Multi-Drug Resistant Organisms: MRSA Date of last positivie culture/infection: 2008 MDRO Source:: thumb Past Surgical History: Appendectomy, Back Surgery, Cholecystectomy, Orthopedic Surgery Additional Past Surgical History / Comment(s): l4-5 fusion march 2020,l4-s1 fusion in 12/2021, carpel tunnnel release, vascectomy, skin graft knee surg x4, right hip surgery. lower bowel surgery Past Anesthesia/Blood Transfusion Reactions: No Reported Reaction Past Psychological History: Anxiety, Depression, PTSD Smoking Status: Former smoker Past Alcohol Use History: Occasional Past Drug Use History: None Reported - Past Family History Father Family Medical History: No Reported History Additional Family Medical History / Comment(s): Father is alive at age 61 was no major medical problems. Mother Family Medical History: No Reported History Additional Family Medical History / Comment(s): Mother is alive at age 56 with history of spinal surgeries and neurological disorders. one sister with no major medical problems. Patient has 1 son and 1 daughter with no major medical problems. General Exam Limitations: no limitations General appearance: alert, in no apparent distress Head exam: Present: atraumatic, normocephalic, normal inspection Eye exam: Present: normal appearance, PERRL, EOMI. Absent: scleral icterus, conjunctival injection, periorbital swelling ENT exam: Present: normal exam, mucous membranes moist Neck exam: Present: normal inspection. Absent: tenderness, meningismus, lymphadenopathy Respiratory exam: Present: normal lung sounds bilaterally. Absent: respiratory distress, wheezes, rales, rhonchi, stridor Cardiovascular Exam: Present: regular rate, normal rhythm, normal heart sounds. Absent: systolic murmur, diastolic murmur, rubs, gallop, clicks GI/Abdominal exam: Present: soft, normal bowel sounds. Absent: distended, tenderness, guarding, rebound, rigid Extremities exam: Present: normal inspection, full ROM, normal capillary refill. Absent: tenderness, pedal edema, joint swelling, calf tenderness Back exam: Present: normal inspection Neurological exam: Present: alert, oriented X3, CN II-XII intact Psychiatric exam: Present: normal affect, normal mood Skin exam: Present: warm, dry, intact, normal color. Absent: rash Course Vital Signs 10/22/22 23:08 Temperature 97.3 F L Pulse Rate 92 Respiratory 18 Rate Blood Pressure 131/84 O2 Sat by Pulse 96 Oximetry - Reevaluation(s) Reevaluation #1: 10/23/22 01:09 Medical record is reviewed Reevaluation #2: 10/23/22 01:09 No improvement in symptoms here in the ER Reevaluation #3: 10/23/22 01:09 Patient informed results and questions answered - Consultations Consultation #1: Spoke with PM were agreeable with the patient Medical Decision Making - Medical Decision Making 41 male be admitted to observation under internal medicine for evaluation by Dr. Lyons provided gallbladder surgery earlier this week - Lab Data Result diagrams: 10/22/22 23:34 10/22/22 23:34 Lab Results 10/22/22 10/22/22 Range/Units 23:34 23:34 WBC 10.1 (3.8-10.6) k/uL RBC 4.80 (4.30-5.90) m/uL Hgb 14.9 (13.0-17.5) gm/dL Hct 42.6 (39.0-53.0) % MCV 88.7 (80.0-100.0) fL MCH 31.0 (25.0-35.0) pg MCHC 35.0 (31.0-37.0) g/dL RDW 12.6 (11.5-15.5) % Plt Count 273 (150-450) k/uL MPV 8.5 Neutrophils % 53 % Lymphocytes % 31 % Monocytes % 6 % Eosinophils % 8 % Basophils % 1 % Neutrophils # 5.3 (1.3-7.7) k/uL Lymphocytes # 3.1 (1.0-4.8) k/uL Monocytes # 0.6 (0-1.0) k/uL Eosinophils # 0.8 H (0-0.7) k/uL Basophils # 0.1 (0-0.2) k/uL Sodium 139 (137-145) mmol/L Potassium 4.0 (3.5-5.1) mmol/L Chloride 107 (98-107) mmol/L Carbon Dioxide 25 (22-30) mmol/L Anion Gap 7 mmol/L BUN 13 (9-20) mg/dL Creatinine 1.61 H (0.66-1.25) mg/dL Est GFR (CKD-EPI)AfAm 62 (>60 ml/min/1.73 sqM) Est GFR (CKD-EPI)NonAf 53 (>60 ml/min/1.73 sqM) Glucose 101 H (74-99) mg/dL Calcium 9.2 (8.4-10.2) mg/dL Total Bilirubin 0.2 (0.2-1.3) mg/dL AST 34 (17-59) U/L ALT 53 H (4-49) U/L Alkaline Phosphatase 72 (38-126) U/L Total Protein 6.2 L (6.3-8.2) g/dL Albumin 3.7 (3.5-5.0) g/dL Amylase 34 (30-110) U/L Lipase 99 (23-300) U/L - Radiology Data Radiology results: report reviewed (CT of the abdomen and pelvis is negative for acute disease), image reviewed Disposition Clinical Impression: Abdominal pain, Postoperative pain Disposition: ADMITTED IP TO THIS HOSP Condition: Good Is patient prescribed a controlled substance at d/c from ED?: No Referrals: Nik Paula MD [Primary Care Provider] - 1-2 days Time of Disposition: 01:10
[2022-10-23 00:26] LABS: Albumin 3.7 g/dL (3.5-5.0); Calcium 9.2 mg/dL (8.4-10.2); Total Bilirubin 0.2 mg/dL (0.2-1.3); Total Protein 6.2 g/dL (6.3-8.2)
--- NOTE | 2022-10-23 00:26 | CT ---
EXAMINATION TYPE: CT abdomen pelvis w con CT DLP: 2064.6 mGycm, Automated exposure control for dose reduction was used. DATE OF EXAM: 10/23/2022 12:01 AM COMPARISON: None CLINICAL INDICATION:Male, 41 years old with history of abdominal pain; POST OP ABD PAIN, CHOLECYSTECT TRACY THIS PAST WEDNESDAY. TECHNIQUE: Axial CT of the abdomen and pelvis. Sagittal and coronal reformats were created on a [employer] workstation. Contrast used:100 mL of Isovue 300 with IV Contrast, Oral contrast used: without Oral Contrast FINDINGS: LOWER CHEST: Unremarkable ABDOMEN LIVER: Unremarkable GALLBLADDER AND BILE DUCTS: Postsurgical changes with cholecystectomy. No evidence organizing fluid c ollection. PANCREAS: Unremarkable. SPLEEN: Unremarkable. ADRENAL GLANDS: Unremarkable. KIDNEYS AND URETERS: No evidence of hydronephrosis or renal calculus. The ureters are unremarkable. PELVIS BLADDER: Unremarkable REPRODUCTIVE: Unremarkable. ABDOMEN & PELVIS STOMACH AND BOWEL: No evidence of bowel obstruction. PERITONEUM: No evidence of pneumoperitoneum or free fluid. There is fat stranding changes near umbili cus at the port site. No evidence of organizing fluid collection. VASCULATURE: No evidence of aortic aneurysm. MUSCULOSKELETAL: No acute osseous abnormalities, multilevel disc degeneration changes, grade 1 clement listhesis of L4 and L5. There is hardware extending from L4 to S1. Hardware appears intact. LYMPH NODES: No gross evidence for lymphadenopathy. SOFT TISSUE/ABDOMINAL WALL: Post surgical changes without evidence of organizing fluid collection. Mi ld fat attending changes around the umbilicus. There are 2 small fat-containing ventral wall hernias in this location. The fat within these areas demonstrates fat stranding changes. Few scattered foci o f gas in the right upper quadrant likely postsurgical. IMPRESSION: 1. Postcholecystectomy changes without evidence for intra-abdominal abscess. 2. Inflammation changes near the umbilicus around port site with fat-containing ventral wall small he rnias. Mild inflammation within the fat suggests omental infarct.
[2022-10-23 00:44] LABS: Basophils # (A) 0.1 k/uL (0-0.2); Basophils % (A) 1 %; Eosinophils # (A) 0.8 k/uL (0-0.7); Eosinophils % (A) 8 %; HCT 42.6 % (39.0-53.0); HGB 14.9 gm/dL (13.0-17.5); Lymphocytes # (A) 3.1 k/uL (1.0-4.8); Lymphocytes % (A) 31 %; MCV 88.7 fL (80.0-100.0); Mean Platelet Volume 8.5; Monocytes # (A) 0.6 k/uL (0-1.0); Monocytes % (A) 6 %; Neutrophils # (A) 5.3 k/uL (1.3-7.7); Neutrophils % (A) 53 %; Platelet Count 273 k/uL (150-450); RDW 12.6 % (11.5-15.5); WBC 10.1 k/uL (3.8-10.6)
[2022-10-23] MEDS ORDERED: MORPHINE SULFATE 4 MG/ML SYRINGE IV PRN (01:03)
[2022-10-23] MEDS ORDERED: HYDROmorphone 0.5 MG/0.5 ML SYRINGE IVP STA (01:03)
[2022-10-23] MEDS ORDERED: SODIUM CHLORIDE 0.9% 1,000 ML IV STA (01:03)
[2022-10-23] MEDS ORDERED: NALOXONE 0.4 MG/ML 1 ML VIAL IV PRN (01:03)
[2022-10-23] MEDS: SODIUM CHLORIDE 0.9% 1,000 ML IV SCH ×2 (02:25→08:15)
[2022-10-23] MEDS: HYDROmorphone 1 MG/ML 1 ML SYRINGE IVP PRN ×5 (02:28→20:34)
[2022-10-23] MEDS ORDERED: ONDANSETRON 4 MG/2 ML VIAL IVP PRN (02:30)
[2022-10-23] MEDS: traZODone HCL 50 MG TAB PO PRN (03:27)
[2022-10-23] MEDS: METOPROLOL TARTRATE 12.5 MG TAB PO SCH ×2 (08:15→20:33)
[2022-10-23] MEDS: ISOSORBIDE MONONITRATE ER 30 MG TAB.ER.24H PO SCH (08:15)
[2022-10-23] MEDS: GABAPENTIN 300 MG CAP PO SCH ×3 (08:16→20:34)
[2022-10-23] MEDS ORDERED: PANTOPRAZOLE 40 MG/10 ML VIAL IV SCH (09:00)
[2022-10-23] MEDS: PARoxetine 20 MG TAB PO SCH (09:26)
[2022-10-23] MEDS ORDERED: VANCOMYCIN IV PER PHARMACY 1 EACH MISC MISCELLANE PRN (11:37)
[2022-10-23] MEDS: PANTOPRAZOLE 40 MG/10 ML VIAL IVP SCH ×2 (12:18→20:33)
[2022-10-23] MEDS: PIPERACILLIN-TAZOBACTAM 3.375 GM in SODIUM CHLORIDE 0.9% 100 ML IVPB SCH ×2 (12:27→20:31)
[2022-10-23] MEDS ORDERED: VANCOMYCIN 2,000 MG in SODIUM CHLORIDE 0.9% 500 ML 500 ML IVPB ONE (12:30)
[2022-10-23] MEDS: HEPARIN SODIUM,PORCINE/PF 5,000 UNIT/0.5 ML SYRINGE SQ SCH ×2 (12:50→20:33)
[2022-10-23] MEDS: HYDROmorphone 0.5 MG/0.5 ML SYRINGE IVP PRN (14:38)
[2022-10-23] MEDS: PRAZOSIN 1 MG CAP PO SCH (20:34)
--- NOTE | 2022-10-23 21:07 | P.CONS ---
History of Present Illness - Reason for Consult Consult date: 10/23/22 postoperative cholecystectomy Questionable infection Requesting physician: Pao Vega - Chief Complaint vomiting diarrhea and abdominal pain x 2 days - History of Present Illness Patient is a 41-year-old male who was recently admitted at this facility in this patient who is status post laparoscopic cholecystectomy completed on 10/19/2022 and the patient was subsequently discharged on 10/20/2022, patient is presenting back to the hospital on 10/23/2022 for evaluation of intractable nausea vomiting and diarrhea that apparently has been going on for about a day before presentation to the hospital patient also complaining of some periumbilical pain more of a dull aching/sharp about 8 out of 10 and no radiation with associated nausea and vomiting patient denies any fever or chills with these simple the patient was evaluated on arrival to the ER the patient was afebrile, the patient did have a normal white count kidney function is predominantly with enzymes and normal patient did have a CT of abdominal pelvis which did shows postcholecystectomy changes without evidence for intra-abdominal abscess, inflammatory changes near the umbilicus around the port site with fat-containing ventral wall small hernia mild inflammation within the fat suggestive of omental infarct, patient was started on vancomycin and Zosyn has been admitted to the hospital infectious disease was consulted for further management of antibiotic therapy Review of Systems Positive point has been mentioned in the HPI rest of the systems are negative Past Medical History Past Medical History: Coronary Artery Disease (CAD) Additional Past Medical History / Comment(s): chronic knee pain, back pain, RBBB, elevated heart rate. History of Any Multi-Drug Resistant Organisms: MRSA Year Discovered:: 2008 MDRO Source:: thumb Past Surgical History: Appendectomy, Back Surgery, Cholecystectomy, Orthopedic Surgery Additional Past Surgical History / Comment(s): l4-5 fusion march 2020,l4-s1 fusion in 12/2021, carpel tunnnel release, vascectomy, skin graft knee surg x4, right hip surgery. lower bowel surgery, cholecystectomy 10/2022 Past Anesthesia/Blood Transfusion Reactions: No Reported Reaction Past Psychological History: Anxiety, Depression, PTSD Additional Psychological History / Comment(s): Pt resides with his spouse and 2 children. He is independent. He is retired. He served in the . Smoking Status: Former smoker Past Alcohol Use History: Occasional Additional Past Alcohol Use History / Comment(s): Patient was a smoker of half a pack per day for 10 years and quit in december 2019, and occasionally still smokes one or two. He denies any marijuana or street drug use. He drinks alcohol s ocially. He currently lives at home with his . 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 Past Drug Use History: None Reported - Past Family History Father Family Medical History: No Reported History Additional Family Medical History / Comment(s): Father is alive at age 61 was no major medical problems. Mother Family Medical History: No Reported History Additional Family Medical History / Comment(s): Mother is alive at age 56 with history of spinal surgeries and neurological disorders. one sister with no major medical problems. Patient has 1 son and 1 daughter with no major medical problems. Medications and Allergies Home Medications Medication Instructions Recorded Confirmed Type PARoxetine HCL [Paxil] 60 mg PO DAILY 08/22/19 10/23/22 History traZODone HCL 150 mg PO HS PRN 10/09/20 10/23/22 History Gabapentin 600 mg PO TID 06/05/22 10/23/22 History Prazosin HCl 6 mg PO HS 06/05/22 10/23/22 History Isosorbide Mononitrate ER [Imdur] 30 mg PO DAILY #30 tab 06/08/22 10/23/22 Rx Acetaminophen Tab [Tylenol] 325 - 650 mg PO Q6H PRN 10/16/22 10/23/22 History Aspirin EC [Ecotrin] 325 mg PO QID PRN 10/16/22 10/23/22 History EPINEPHrine (Auto Inject) [Epipen] 0.3 mg IM ONCE PRN 10/16/22 10/23/22 History HYDROcodone/APAP 7.5-325MG [[place] 1 tab PO Q4H PRN 3 Days #18 tab 10/19/22 10/23/22 Rx 7.5-325] Metoprolol Tartrate [Lopressor] 12.5 mg PO BID tab 10/20/22 10/23/22 Rx Amoxic-Pot Clav 875-125Mg 1 tab PO Q12HR 5 Days #10 tab 10/26/22 Rx [Augmentin 875-125] Pantoprazole [Protonix] 40 mg PO AC-BID #60 tab 10/26/22 Rx Allergies Allergy/AdvReac Type Severity Reaction Status Date / Time ketorolac tromethamine Allergy Rash/Hives/Swelling Verified 10/23/22 10:23 [From Toradol] at injection site venom-honey bee Allergy Anaphylaxis Verified 10/23/22 10:23 [bee venom (honey bee)] naproxen AdvReac Nausea & Verified 10/23/22 10:23 Vomiting & Diarrhea Physical Exam Vitals: Vital Signs Temp Pulse Pulse Resp BP BP Pulse Ox 10/23/22 07:50 97.5 F L 67 16 133/80 97 10/23/22 07:33 98.1 F 74 18 133/96 97 10/23/22 03:26 86 18 136/88 98 10/22/22 23:08 97.3 F L 92 18 131/84 96 Intake and Output 10/22/22 10/23/22 10/23/22 22:59 06:59 14:59 Other: Weight 124.738 kg 124.738 kg GENERAL DESCRIPTION: Middle-aged male lying in bed, no distress. No tachypnea or accessory muscle of respiration use. HEENT: Shows Pallor , no scleral icterus. Oral mucous membrane is dry. No pharyngeal erythema or thrush NECK: Trachea central, no thyromegaly. LUNGS: Unlabored breathing. Clear to auscultation anteriorly. No wheeze or crackle. HEART: S1, S2, regular rate and rhythm. No loud murmur ABDOMEN: Soft, mild distention laparoscopic port sites currently stable. No significant swelling and redness minimal tenderness periUmbilical area EXTREMITIES: No edema of feet. SKIN: No rash, no masses palpable. NEUROLOGICAL: The patient is awake, alert, oriented x3, mood and affect normal. Results CBC & Chem 7: 10/26/22 03:45 10/26/22 03:45 Labs: Abnormal Lab Results - Last 24 Hours (Table) 10/22/22 10/22/22 Range/Units 23:34 23:34 Eosinophils # 0.8 H (0-0.7) k/uL Creatinine 1.61 H (0.66-1.25) mg/dL Glucose 101 H (74-99) mg/dL ALT 53 H (4-49) U/L Total Protein 6.2 L (6.3-8.2) g/dL Assessment and Plan (1) Abnormal CT of the abdomen Status: Acute Code(s): R93.5 - ABN FINDINGS ON DX IMAGING OF ABD REGIONS, INC RETROPERITON SNOMED Code(s): 31882540711270931 (2) Abdominal pain Status: Acute Code(s): R10.9 - UNSPECIFIED ABDOMINAL PAIN SNOMED Code(s): 65297203 Plan: 1patient presented to hospital with intractable nausea vomiting and abdominal pain in this patient who is status post laparoscopic cholecystectomy CT abdominal pelvis did not show any abscess however there was concern for possible omental infarct the periumbilical port site is currently stapled and is no swelling or redness mild tenderness 2we will wait for the stool for C. diff and also obtain stool culture 3empirically continue with the Zosyn however discontinue the vancomycin to decrease the risk of nephrotoxicity as there was no evidence of any abdominal wall cellulitis We will follow on clinical condition and cultures to further adjust medication if needed Thank you for this consultation will follow this patient with you Time with Patient: Greater than 30
--- NOTE | 2022-10-23 21:33 | HP ---
HISTORY AND PHYSICAL CHIEF COMPLAINTS: Abdominal pain and vomiting. HISTORY OF PRESENT ILLNESS: This is a 41-year-old gentleman with a past medical history of multiple medical problems and MRSA, history of CAD, recently underwent cholecystectomy by Dr. Lyons. The patient had some significant abdominal pain as well as vomiting. Patient came to [facility]. CAT scan showed some inflammatory changes and some stranding, and the patient was admitted for further evaluation and treatment. There is no history of any fever, rigors, or chills at this time. PAST MEDICAL HISTORY: Reviewed, include history of MRSA, CAD, history of appendectomy. MEDICATIONS: Home medications are trazodone, dose and rest of medications reviewed. ALLERGIES: Reviewed include Toradol, rest of the chart is also reviewed. FAMILY HISTORY: No history of any heart disease or strokes in the family. SOCIAL HISTORY: Previous history of smoking. REVIEW OF SYSTEMS: A 14-point review is negative except as mentioned earlier. PHYSICAL EXAMINATION: VITAL SIGNS: Pulse 74, blood pressure 133/96, and respirations 18. HEENT: Conjunctivae normal. NECK: No jugular venous distention. No carotid bruit. CARDIOVASCULAR: S1, S2 muffled. RESPIRATION: Diminished respirations at the bases. Few scattered and rhonchi. ABDOMEN: Soft, obese, mild diffuse tenderness present. No guarding, no rigidity, no mass palpable. No ascites. Bowel sounds diminished. LEGS: No edema, no swelling. NERVOUS SYSTEM: No focal deficits. SKIN: No rash. JOINTS: No active deforming arthropathy. LABS: Reviewed. ASSESSMENT: 1. Postoperative wound infection with abdominal pain and vomiting. 2. History of MRSA. 3. History of coronary artery disease. 4. Multiple medical issues. 5. History of recent cholecystectomy. RECOMMENDATIONS: This 41-year-old gentleman presented with multiple medical issues. At this time, I will recommend initiate broad-spectrum IV antibiotics, obtain the cultures, infectious disease evaluation, surgical evaluation. Overall prognosis guarded because of multiple complex medical issues. Further recommendations to follow. I would recommend repeat labs also tomorrow. The prognosis guarded. See orders for further details. MMODL / IJN: [id number] /
[2022-10-24] MEDS: HYDROmorphone 0.5 MG/0.5 ML SYRINGE IVP PRN (00:12)
[2022-10-24] MEDS: traZODone HCL 50 MG TAB PO PRN (00:12)
[2022-10-24] MEDS: SODIUM CHLORIDE 0.9% 1,000 ML IV SCH ×2 (02:52→15:33)
[2022-10-24] MEDS ORDERED: VANCOMYCIN 2,000 MG in SODIUM CHLORIDE 0.9% 500 ML 500 ML IVPB SCH (04:00)
[2022-10-24] MEDS: PIPERACILLIN-TAZOBACTAM 3.375 GM in SODIUM CHLORIDE 0.9% 100 ML IVPB SCH ×3 (04:39→20:40)
[2022-10-24] MEDS: GABAPENTIN 300 MG CAP PO SCH ×3 (08:19→20:46)
[2022-10-24] MEDS: ISOSORBIDE MONONITRATE ER 30 MG TAB.ER.24H PO SCH (08:20)
[2022-10-24] MEDS: METOPROLOL TARTRATE 12.5 MG TAB PO SCH ×2 (08:20→20:45)
[2022-10-24] MEDS: PANTOPRAZOLE 40 MG/10 ML VIAL IVP SCH ×2 (08:20→20:45)
[2022-10-24] MEDS: HEPARIN SODIUM,PORCINE/PF 5,000 UNIT/0.5 ML SYRINGE SQ SCH ×2 (08:20→20:45)
[2022-10-24] MEDS: PARoxetine 20 MG TAB PO SCH (08:20)
[2022-10-24] MEDS: HYDROmorphone 1 MG/ML 1 ML SYRINGE IVP PRN ×3 (09:48→20:46)
[2022-10-24] MEDS: HYDROcodone/APAP 7.5-325MG 1 EACH TAB PO PRN (10:37)
[2022-10-24 10:52] LABS: Basophils # (A) 0.04 X 10*3/uL (0.00-0.10); Basophils % (A) 0.6 %; Eosinophils # (A) 0.53 X 10*3/uL (0.04-0.35); Eosinophils % (A) 8.3 %; HCT 39.2 % (39.6-50.0); HGB 12.7 g/dL (13.0-17.0); Immature Grans, Automated 0.3 %; Lymphocytes # (A) 2.28 X 10*3/uL (0.90-5.00); Lymphocytes % (A) 35.8 %; MCH 29.7 pg (27.0-32.0); MCHC 32.4 g/dL (32.0-37.0); MCV 91.6 fL (80.0-97.0); Mean Platelet Volume 10.5 fL (9.5-12.2); Monocytes # (A) 0.49 X 10*3/uL (0.20-1.00); Monocytes % (A) 7.7 %; NRBC Per 100 WBC 0 /100 WBCS (0.0-0.0); Neutrophils # (A) 3.01 X 10*3/uL (1.80-7.70); Neutrophils % (A) 47.3 %; Platelet Count 254 X 10*3/uL (140-440); RBC 4.28 X 10*6/uL (4.40-5.60); RDW 12.6 % (11.5-14.5); WBC 6.37 X 10*3/uL (4.50-10.00)
[2022-10-24 11:32] LABS: ALT 36 U/L (10-49); AST 13 U/L (14-35); African American GFR (CKD) 114.1 (60.0-200.0); Albumin 3.6 g/dL (3.8-4.9); Albumin/Globulin Ratio 1.91 (1.60-3.17); Alkaline Phosphatase 51 U/L (41-126); BUN/Creat Ratio 9.94 Ratio (12.00-20.00); Blood Urea Nitrogen 9.6 mg/dL (9.0-27.0); Calcium 9.1 mg/dL (8.7-10.3); Carbon Dioxide 25.9 mmol/L (20.0-27.5); Chloride 107 mmol/L (96-109); Globulin 1.9 g/dL (1.6-3.3); Glucose 84 mg/dL (70-110); Non-African American GFR(CKD) 98.4 (60.0-200.0); Potassium 4.5 mmol/L (3.5-5.5); Sodium 142 mmol/L (135-145); Total Bilirubin <0.15 mg/dL (0.30-1.20); Total Protein 5.5 g/dL (6.2-8.2)
--- NOTE | 2022-10-24 12:38 | P.GSCN ---
History of Present Illness Consult date: 10/23/22 Requesting physician: Hardik Leger History of present illness: Present illness: 41-year-old obese male who recently had a laparoscopic cholecystectomy a few days ago. He had some nausea and abdominal pain at the umbilical incision and presented back to the emergency department. CAT scan was done as well as blood work and there was no sign of any bile leak or duct injury. The patient had an umbilical port site hernia with some fat stranding and this is where the patient's pain was. He was admitted for pain 8 out of 10 and he was monitored and given pain control and there was a portion of omentum in this. He was expected to get better but yet he got worse. There is no bowel obstruction and his belly was fairly soft but he had significant pain and ultimately I felt exploration was most reasonable. Review of Systems A 12 point review of systems was asked and was otherwise negative - Constitutional Reports as per HPI - EENT Ears, nose, mouth and throat: Reports as per HPI - Cardiovascular Reports as per HPI - Respiratory Reports as per HPI - Gastrointestinal Reports as per HPI - Genitourinary Reports as per HPI - Musculoskeletal Reports as per HPI Past Medical History Past Medical History: Coronary Artery Disease (CAD) Additional Past Medical History / Comment(s): chronic knee pain, back pain, RBBB, elevated heart rate. History of Any Multi-Drug Resistant Organisms: MRSA Year Discovered:: 2008 MDRO Source:: thumb Past Surgical History: Appendectomy, Back Surgery, Cholecystectomy, Orthopedic Surgery Additional Past Surgical History / Comment(s): l4-5 fusion march 2020,l4-s1 fusion in 12/2021, carpel tunnnel release, vascectomy, skin graft knee surg x4, right hip surgery. lower bowel surgery, cholecystectomy 10/2022 Past Anesthesia/Blood Transfusion Reactions: No Reported Reaction Past Psychological History: Anxiety, Depression, PTSD Additional Psychological History / Comment(s): Pt resides with his spouse and 2 children. He is independent. He is retired. He served in the . Smoking Status: Former smoker Past Alcohol Use History: Occasional Additional Past Alcohol Use History / Comment(s): Patient was a smoker of half a pack per day for 10 years and quit in december 2019, and occasionally still smokes one or two. He denies any marijuana or street drug use. He drinks alcohol socially. He currently lives at home with his . 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 Past Drug Use History: None Reported - Past Family History Father Family Medical History: No Reported History Additional Family Medical History / Comment(s): Father is alive at age 61 was no major medical problems. Mother Family Medical History: No Reported History Additional Family Medical History / Comment(s): Mother is alive at age 56 with history of spinal surgeries and neurological disorders. one sister with no major medical problems. Patient has 1 son and 1 daughter with no major medical problems. Medications and Allergies Home Medications Medication Instructions Recorded Confirmed Type PARoxetine HCL [Paxil] 60 mg PO DAILY 08/22/19 10/23/22 History traZODone HCL 150 mg PO HS PRN 10/09/20 10/23/22 History Gabapentin 600 mg PO TID 06/05/22 10/23/22 History Prazosin HCl 6 mg PO HS 06/05/22 10/23/22 History Isosorbide Mononitrate ER [Imdur] 30 mg PO DAILY #30 tab 06/08/22 10/23/22 Rx Acetaminophen Tab [Tylenol] 325 - 650 mg PO Q6H PRN 10/16/22 10/23/22 History Aspirin EC [Ecotrin] 325 mg PO QID PRN 10/16/22 10/23/22 History EPINEPHrine (Auto Inject) [Epipen] 0.3 mg IM ONCE PRN 10/16/22 10/23/22 History HYDROcodone/APAP 7.5-325MG [[place] 1 tab PO Q4H PRN 3 Days #18 tab 10/19/22 10/23/22 Rx 7.5-325] Metoprolol Tartrate [Lopressor] 12.5 mg PO BID tab 10/20/22 10/23/22 Rx Allergies Allergy/AdvReac Type Severity Reaction Status Date / Time ketorolac tromethamine Allergy Rash/Hives/Swelling Verified 10/23/22 10:23 [From Toradol] at injection site venom-honey bee Allergy Anaphylaxis Verified 10/23/22 10:23 [bee venom (honey bee)] naproxen AdvReac Nausea & Verified 10/23/22 10:23 Vomiting & Diarrhea Surgical - Exam Vital Signs Temp Pulse Resp BP Pulse Ox 97.3 F L 92 18 131/84 96 10/22/22 23:08 10/22/22 23:08 10/22/22 23:08 10/22/22 23:08 10/22/22 23:08 Results - Labs 10/24/22 06:00 10/24/22 06:00 Abnormal Lab Results - Last 24 Hours (Table) 10/24/22 10/24/22 Range/Units 06:00 06:00 RBC 4.28 L (4.40-5.60) X 10*6/uL Hgb 12.7 L (13.0-17.0) g/dL Hct 39.2 L (39.6-50.0) % Eosinophils # 0.53 H (0.04-0.35) X 10*3/uL Anion Gap 9.20 L (10.00-18.00) mmol/L BUN/Creatinine Ratio 9.94 L (12.00-20.00) Ratio Total Bilirubin <0.15 L (0.30-1.20) mg/dL AST 13 L (14-35) U/L C-Reactive Protein 1.00 H (0.00-0.80) mg/dL Total Protein 5.5 L (6.2-8.2) g/dL Albumin 3.6 L (3.8-4.9) g/dL Microbiology - Last 24 Hours (Table) 10/23/22 12:36 Urine Culture - Preliminary Urine,Voided Diabetes panel 10/24/22 Range/Units 06:00 Sodium 142 (135-145) mmol/L Potassium 4.5 (3.5-5.5) mmol/L Chloride 107 (96-109) mmol/L Carbon Dioxide 25.9 (20.0-27.5) mmol/L BUN 9.6 (9.0-27.0) mg/dL Creatinine 1.0 (0.6-1.5) mg/dL Glucose 84 (70-110) mg/dL Calcium 9.1 (8.7-10.3) mg/dL AST 13 L (14-35) U/L ALT 36 (10-49) U/L Alkaline Phosphatase 51 (41-126) U/L Total Protein 5.5 L (6.2-8.2) g/dL Albumin 3.6 L (3.8-4.9) g/dL Calcium panel 10/24/22 Range/Units 06:00 Calcium 9.1 (8.7-10.3) mg/dL Albumin 3.6 L (3.8-4.9) g/dL Pituitary panel 10/24/22 Range/Units 06:00 Sodium 142 (135-145) mmol/L Potassium 4.5 (3.5-5.5) mmol/L Chloride 107 (96-109) mmol/L Carbon Dioxide 25.9 (20.0-27.5) mmol/L BUN 9.6 (9.0-27.0) mg/dL Creatinine 1.0 (0.6-1.5) mg/dL Glucose 84 (70-110) mg/dL Calcium 9.1 (8.7-10.3) mg/dL Adrenal panel 10/24/22 Range/Units 06:00 Sodium 142 (135-145) mmol/L Potassium 4.5 (3.5-5.5) mmol/L Chloride 107 (96-109) mmol/L Carbon Dioxide 25.9 (20.0-27.5) mmol/L BUN 9.6 (9.0-27.0) mg/dL Creatinine 1.0 (0.6-1.5) mg/dL Glucose 84 (70-110) mg/dL Calcium 9.1 (8.7-10.3) mg/dL Total Bilirubin <0.15 L (0.30-1.20) mg/dL AST 13 L (14-35) U/L ALT 36 (10-49) U/L Alkaline Phosphatase 51 (41-126) U/L Total Protein 5.5 L (6.2-8.2) g/dL Albumin 3.6 L (3.8-4.9) g/dL Assessment and Plan Assessment: Assessment: Symptomatic incarcerated port site hernia around the umbilical area. Patient has pain averaging about 810 and were not able to control this despite having him admitted to the hospital and having him receive IV opiate pain medication. This appears to be portion of the omentum perhaps an incarcerated infarcted omental piece which is small. Plan: Repair of port site hernia today.
[2022-10-24] MEDS ORDERED: HYDROmorphone 0.5 MG/0.5 ML SYRINGE IVP ONE ×2 (13:42→15:37)
[2022-10-24] MEDS ORDERED: IV FLUID CONTINUATION 900 ML IV ONE (13:45)
[2022-10-24] MEDS ORDERED: MIDAZOLAM 2 MG/2 ML VIAL ONE (14:15)
[2022-10-24] MEDS ORDERED: fentaNYL (PF) 50 MCG/ML 2 ML AMP ONE (14:15)
[2022-10-24] MEDS ORDERED: GLYCOPYRROLATE 0.2 MG/ML 2 ML VIAL ONE (14:15)
[2022-10-24] MEDS ORDERED: NEOSTIGMINE 1 MG/ML 10 ML VIAL ONE (14:15)
[2022-10-24] MEDS ORDERED: ROCURONIUM 10 MG/ML (5 ML VIAL) IV ONE (14:15)
[2022-10-24] MEDS ORDERED: PROPOFOL 10 MG/ML 20 ML VIAL IV ONE (14:15)
[2022-10-24] MEDS ORDERED: LIDOCAINE 2% INJ 20 MG/ML (2 ML VIAL) ONE (14:15)
[2022-10-24] MEDS ORDERED: SUCCINYLCHOLINE CHLORIDE 200 MG/10 ML VIAL IV ONE (14:15)
--- NOTE | 2022-10-24 14:17 | P.PN ---
Subjective Progress Note Date: 10/24/22 Principal diagnosis: Abdominal pain/necrotic omental fat Patient is a 41-year-old male with a recent laparoscopic cholecystectomy presenting back to the hospital with periumbilical pain along with vomiting and diarrhea CT abdominal pelvis did not show any abscess however did shows possible necrosis of the omental fat in the periumbilical area. on today's evaluation that is 10/24/2022, the patient denies having any fever or chills, still combining of pain in the socrates-umbilical area patient currently do not have any open wound or drainage, no chest pain shortness of breath or cough no nausea no vomiting or diarrhea Objective - Vital Signs Vital signs: Vital Signs Temp 97.6 F 10/24/22 07:00 Pulse 71 10/24/22 07:00 Resp 17 10/24/22 07:00 BP 132/87 10/24/22 07:00 Pulse Ox 97 10/24/22 07:00 FiO2 Intake & Output 10/23/22 10/24/22 10/24/22 18:59 06:59 18:59 Weight 124.738 kg Other: Voiding Method Toilet Toilet # Voids 3 2 - Exam GENERAL DESCRIPTION: A middle-age male lying in bed in no distress RESPIRATORY SYSTEM: Unlabored breathing , decreased breath sounds at bases HEART: S1 S2 regular rate and rhythm , ABDOMEN: Soft , mild socrates-umbilicus tenderness EXTREMITIES: No edema feet - Labs CBC & Chem 7: 10/24/22 06:00 10/24/22 06:00 Labs: Abnormal Lab Results - Last 24 Hours (Table) 10/24/22 10/24/22 Range/Units 06:00 06:00 RBC 4.28 L (4.40-5.60) X 10*6/uL Hgb 12.7 L (13.0-17.0) g/dL Hct 39.2 L (39.6-50.0) % Eosinophils # 0.53 H (0.04-0.35) X 10*3/uL Anion Gap 9.20 L (10.00-18.00) mmol/L BUN/Creatinine Ratio 9.94 L (12.00-20.00) Ratio Total Bilirubin <0.15 L (0.30-1.20) mg/dL AST 13 L (14-35) U/L C-Reactive Protein 1.00 H (0.00-0.80) mg/dL Total Protein 5.5 L (6.2-8.2) g/dL Albumin 3.6 L (3.8-4.9) g/dL Microbiology - Last 24 Hours (Table) 10/23/22 12:36 Urine Culture - Preliminary Urine,Voided Assessment and Plan (1) Abnormal CT of the abdomen Current Visit: Yes Status: Acute Code(s): R93.5 - ABN FINDINGS ON DX IMAGING OF ABD REGIONS, INC RETROPERITON SNOMED Code(s): 90259034961415965 (2) Abdominal pain Current Visit: Yes Status: Acute Code(s): R10.9 - UNSPECIFIED ABDOMINAL PAIN SNOMED Code(s): 95245771 Plan: 1patient presented to hospital with intractable nausea vomiting and abdominal pain in this patient who is status post laparoscopic cholecystectomy CT abdominal pelvis did not show any abscess however there was concern for possible omental infarct the periumbilical port site is currently stage and is no swelling or redness mild tenderness 2we will wait for the stool for C. diff and also obtain stool culture 3patient has been evaluated by general surgery and taking the patient to the OR for socrates-umbilicus omental fat necrosis if any evidence of purulence culture should be obtained and we will continue the patient on empiric Zosyn at this point Time with Patient: Less than 30
[2022-10-24] MEDS ORDERED: SODIUM CHLORIDE 0.9% 1,000 ML IV ONE (15:40)
--- NOTE | 2022-10-24 15:42 | P.OP ---
Date of Procedure: 10/24/22 Preoperative Diagnosis: Incarcerated midline port site/incisional hernia Postoperative Diagnosis: Incarcerated symptomatic incisional/port site hernia Procedure(s) Performed: Laparotomy with partial omentectomy and primary repair of incisional/port site hernia; scar revision and re-creation of umbilicus. Implants: No implants were used no mesh Anesthesia: SUDARSHAN Surgeon: Clark David Estimated Blood Loss (ml): 50 Pathology: none sent Condition: stable Disposition: floor Indications for Procedure: 41-year-old male who presented shortly after being discharged from having a elective laparoscopic cholecystectomy. He said he had severe pain at the u mbilical incision port site. He was evaluated and there was no evidence of a common bile duct leak or biloma. His white blood cell count was normal pain was relatively skin controlled but he had intermittent pain with CAT scan showed incarcerated omentum with possible infarct in the incisional/port site in the midline near the umbilicus. I watched the patient for just over day and a half and he just was not getting better so there was no sign of sepsis but his pain was just [id number] so we took him to surgery and took care of this incarcerated hernia. This was quite small. Informed consent was obtained. Operative Findings: Under sterile conditions and general anesthesia the port site was horizontal endings was in the setting of a large vertical midline incision I did not want to repair this hernia through this tiny port site so I wanted to expanded and I wanted to go vertical so we went ahead and excised the entire port site and the incision with vertical and took out the old midline scar to some degree of about 12 cm. I did this to have better exposure because the exact location of this hernia was not clear. A cutdown of the fascia opened up the fascia and did a partial omentectomy to remove the omentum that was incarcerated but I was able to get my finger inside the abdomen there was no evidence of bile leak meticulous hemostasis was achieved we were able to delineate the edges of the fascia and an ahead and did a primary repair without mesh cultures were taken for surgery but the patient was on antibiotics a few days before cultures were taken. The wound was closed in layers meticulous hemostasis was achieved sutures and gregory were used to close the superior superficial skin dressings were used and the operation was complete lap count initial count were correct. Description of Procedure: Stable stable
--- NOTE | 2022-10-24 15:52 | P.DS ---
Providers Date of admission: 10/23/22 01:05 Expected date of discharge: 10/25/22 (Patient was admitted with abdominal pain after a laparoscopic cholecystectomy. Patient was observed and did not get better and ultimately was taken to surgery on the next day October 24. He recovered on the evening of the and was discharged home . Patient is to follow-up with the surgeon in 2 weeks to have the sutures and gregory removed. Condition on discharge is stable.) Attending physician: Hardik Leger Consults: 10/23/22 01:03 Consult Physician Routine Consulting Provider: Yoli Lyons Consult Reason/Comments: known Do you want consulting provider notified?: Yes 10/23/22 14:16 Consult Physician Urgent Consulting Provider: Seth Louis Consult Reason/Comments: post op ambrocio, pain ? infection Do you want consulting provider notified?: Yes Primary care physician: Nik [facility] Course: Patient was admitted on October 23 with abdominal pain and was diagnosed with omentum being incarcerated and possibly infarcted and an umbilical port site after laparoscopic cholecystectomy. There is no evidence of common bile duct injury and bile leak or biloma. There was no intra-abdominal hemorrhage or other problem. Patient was admitted and treated conservatively but did not improves ultimately was taken to surgery for this incarcerated incisional/port site hernia in the midline near the umbilicus. Surgery was performed on the and he was brought back to his room to recover and was discharged home on the . Assessment: Patient stable Health Concerns: Patient has multiple medical conditions but were all managed well by the medical team and patient will be discharged in stable condition. Procedures: Surgery was performed on 10/24/2022. Patient Condition at Discharge: Good Plan - Discharge Summary Discharge Rx Participant: No New Discharge Prescriptions: No Action PARoxetine HCL [Paxil] 60 mg PO DAILY traZODone HCL 150 mg PO HS PRN PRN Reason: Insomnia Gabapentin 600 mg PO TID Isosorbide Mononitrate ER [Imdur] 30 mg PO DAILY #30 tab Prazosin HCl 6 mg PO HS Acetaminophen Tab [Tylenol] 325 - 650 mg PO Q6H PRN PRN Reason: Fever And/ Or Pain Aspirin EC [Ecotrin] 325 mg PO QID PRN PRN Reason: Fever And/ Or Pain EPINEPHrine (Auto Inject) [Epipen] 0.3 mg IM ONCE PRN PRN Reason: Anaphylaxis HYDROcodone/APAP 7.5-325MG [[place] 7.5-325] 1 tab PO Q4H PRN 3 Days #18 tab PRN Reason: Pain Metoprolol Tartrate [Lopressor] 12.5 mg PO BID tab Discharge Medication List PARoxetine HCL [Paxil] 60 mg PO DAILY 08/22/19 [History] traZODone HCL 150 mg PO HS PRN 10/09/20 [History] Gabapentin 600 mg PO TID 06/05/22 [History] Prazosin HCl 6 mg PO HS 06/05/22 [History] Isosorbide Mononitrate ER [Imdur] 30 mg PO DAILY #30 tab 06/08/22 [Rx] Acetaminophen Tab [Tylenol] 325 - 650 mg PO Q6H PRN 10/16/22 [History] Aspirin EC [Ecotrin] 325 mg PO QID PRN 10/16/22 [History] EPINEPHrine (Auto Inject) [Epipen] 0.3 mg IM ONCE PRN 10/16/22 [History] HYDROcodone/APAP 7.5-325MG [[place] 7.5-325] 1 tab PO Q4H PRN 3 Days #18 tab 10/19/22 [Rx] Metoprolol Tartrate [Lopressor] 12.5 mg PO BID tab 10/20/22 [Rx] Follow up Appointment(s)/Referral(s): Yoli Lyons DO [Doctor of Osteopathic Medicine] - 1 Week Nik Paula MD [Primary Care Provider] - 1-2 days Activity/Diet/Wound Care/Special Instructions: 10 pound weight limit for lifting. Okay to remove the dressing in 2 days and then okay to shower, until then washed around the incision Call your surgeon to schedule a follow-up in 2 weeks. He will need sutures and gregory removed. Take her pain medications that were given for your laparoscopic cholecystectomy. As needed. Resume home medications. No heavy lifting. Discharge Disposition: HOME SELF-CARE Plan of Treatment: The hernia was repaired and U will be discharged home in 10/25/2022.
[2022-10-24] MEDS: PRAZOSIN 1 MG CAP PO SCH (20:45)
[2022-10-25] MEDS: traZODone HCL 50 MG TAB PO PRN (00:52)
[2022-10-25] MEDS: HYDROmorphone 1 MG/ML 1 ML SYRINGE IVP PRN (00:53)
[2022-10-25] MEDS: HYDROmorphone 0.5 MG/0.5 ML SYRINGE IVP PRN ×4 (05:06→20:30)
[2022-10-25] MEDS: PIPERACILLIN-TAZOBACTAM 3.375 GM in SODIUM CHLORIDE 0.9% 100 ML IVPB SCH ×3 (05:07→20:31)
[2022-10-25] MEDS: METOPROLOL TARTRATE 12.5 MG TAB PO SCH ×2 (08:12→20:31)
[2022-10-25] MEDS: GABAPENTIN 300 MG CAP PO SCH ×3 (08:12→20:31)
[2022-10-25] MEDS: PARoxetine 20 MG TAB PO SCH (08:13)
[2022-10-25] MEDS: ISOSORBIDE MONONITRATE ER 30 MG TAB.ER.24H PO SCH (08:13)
[2022-10-25] MEDS: PANTOPRAZOLE 40 MG/10 ML VIAL IVP SCH (08:13)
--- NOTE | 2022-10-25 08:13 | PN ---
PROGRESS NOTE DATE OF SERVICE: 10/24/2022 SUBJECTIVE: This 41-year-old gentleman was admitted with abdominal pain after surgery, suspected to have periumbilical fat necrosis. The patient is being planned for repeat surgery. Infectious Disease is following the patient closely, empiric antibiotics given. No chest pain, no palpitations, no fever. OBJECTIVE: VITAL SIGNS: Pulse 71, blood pressure ntd, respiratory rate 17. HEENT: Conjunctivae normal. NECK: No JVD. CARDIOVASCULAR: S1, S2. RESPIRATIONS: Breath sounds diminished at the bases. ABDOMEN: Soft, obese. LEGS: No edema. NERVOUS SYSTEM: No focal deficits. LABORATORY DATA: WBC 6.2, hemoglobin 12.7. ASSESSMENT: 1. Postoperative wound infection with abdominal pain and vomiting, possibly periumbilical fat necrosis post surgery. 2. Abnormal CAT scan. 3. History of MRSA. 4. History of coronary artery disease. 5. Multiple medical issues. 6. History of recent cholecystectomy. RECOMMENDATIONS: Recommended to continue current medications and continue symptomatic treatment. Closely follow with surgery. Please note that the patient is being scheduled for repeat surgery. Closely followed by Infectious disease and further recommendations with surgery, mainly the patient has surgical issues and complications after initial surgery. He will follow with surgery. Prognosis guarded. MMODL / IJN: [id number] / MTDD
[2022-10-25] MEDS: SODIUM CHLORIDE 0.9% 1,000 ML IV SCH (08:22)
[2022-10-25] MEDS: HEPARIN SODIUM,PORCINE/PF 5,000 UNIT/0.5 ML SYRINGE SQ SCH ×2 (10:28→20:32)
[2022-10-25 11:36] LABS: Basophils # (A) 0.02 X 10*3/uL (0.00-0.10); Basophils % (A) 0.3 %; Eosinophils # (A) 0.18 X 10*3/uL (0.04-0.35); Eosinophils % (A) 2.5 %; HCT 35.9 % (39.6-50.0); HGB 12.1 g/dL (13.0-17.0); Immature Grans, Automated 0.3 %; Lymphocytes # (A) 1.28 X 10*3/uL (0.90-5.00); MCH 29.8 pg (27.0-32.0); MCHC 33.7 g/dL (32.0-37.0); MCV 88.4 fL (80.0-97.0); Mean Platelet Volume 10.5 fL (9.5-12.2); NRBC Per 100 WBC 0 /100 WBCS (0.0-0.0); Neutrophils # (A) 5.11 X 10*3/uL (1.80-7.70); Neutrophils % (A) 71.9 %; Platelet Count 273 X 10*3/uL (140-440); RBC 4.06 X 10*6/uL (4.40-5.60); RDW 12.7 % (11.5-14.5); WBC 7.11 X 10*3/uL (4.50-10.00)
[2022-10-25 12:57] LABS: African American GFR (CKD) 109.4 (60.0-200.0); Albumin 3.7 g/dL (3.8-4.9); Albumin/Globulin Ratio 2.18 (1.60-3.17); Anion Gap 9.7 mmol/L (10.00-18.00); BUN/Creat Ratio 6.2 Ratio (12.00-20.00); Blood Urea Nitrogen 6.2 mg/dL (9.0-27.0); Calcium 8.8 mg/dL (8.7-10.3); Carbon Dioxide 24.3 mmol/L (20.0-27.5); Globulin 1.7 g/dL (1.6-3.3); Non-African American GFR(CKD) 94.4 (60.0-200.0); Potassium 3.6 mmol/L (3.5-5.5); Total Bilirubin 0.3 mg/dL (0.30-1.20); Total Protein 5.4 g/dL (6.2-8.2)
[2022-10-25] MEDS: HYDROcodone/APAP 7.5-325MG 1 EACH TAB PO PRN (13:51)
--- NOTE | 2022-10-25 15:48 | P.PN ---
Subjective Progress Note Date: 10/25/22 Principal diagnosis: Abdominal pain/necrotic omental fat Patient is a 41-year-old male with a recent laparoscopic cholecystectomy presenting back to the hospital with periumbilical pain along with vomiting and diarrhea CT abdominal pelvis did not show any abscess however did shows possible necrosis of the omental fat in the periumbilical area. She is status post laparotomy with partial omentectomy and primary care physician/port site hernia scar revision and recreationa of umbilicus [ on today's evaluation that is 10/25/2022, the patient remains to be febrile, the patient pain in the socrates-umbilical area currently controlled, the patient denies chest pain shortness of breath or cough no nausea no vomiting or diarrhea Objective - Vital Signs Vital signs: Vital Signs Temp 98.5 F 10/25/22 07:00 Pulse 97 10/25/22 08:00 Resp 18 10/25/22 08:00 BP 146/88 10/25/22 07:00 Pulse Ox 94 L 10/25/22 07:00 FiO2 Intake & Output 10/24/22 10/25/22 10/25/22 18:59 06:59 18:59 Intake Total 1100 358 Output Total 50 Balance 1050 358 Intake: IV 1100 Oral 358 Output: Estimated Blood Loss 50 Other: Voiding Method Toilet Toilet Toilet # Voids 2 # Bowel Movements 0 0 - Exam GENERAL DESCRIPTION: A middle-age male lying in bed in no distress RESPIRATORY SYSTEM: Unlabored breathing , decreased breath sounds at bases HEART: S1 S2 regular rate and rhythm , ABDOMEN: Soft , mild socrates-umbilicus tenderness EXTREMITIES: No edema feet - Labs CBC & Chem 7: 10/25/22 06:09 10/25/22 06:09 Labs: Abnormal Lab Results - Last 24 Hours (Table) 10/25/22 10/25/22 Range/Units 06:09 06:09 RBC 4.06 L (4.40-5.60) X 10*6/uL Hgb 12.1 L (13.0-17.0) g/dL Hct 35.9 L (39.6-50.0) % Anion Gap 9.70 L (10.00-18.00) mmol/L BUN 6.2 L (9.0-27.0) mg/dL BUN/Creatinine Ratio 6.20 L (12.00-20.00) Ratio Total Protein 5.4 L (6.2-8.2) g/dL Albumin 3.7 L (3.8-4.9) g/dL Microbiology - Last 24 Hours (Table) 10/23/22 12:00 Blood Culture - Preliminary Blood No Growth after 48 hours 10/24/22 15:00 Wound Culture - Preliminary Abdomen 10/24/22 15:00 Anaerobic Culture - Preliminary Abdomen 10/23/22 12:36 Urine Culture - Final Urine,Voided Assessment and Plan (1) Abnormal CT of the abdomen Current Visit: Yes Status: Acute Code(s): R93.5 - ABN FINDINGS ON DX IMAGING OF ABD REGIONS, INC RETROPERITON SNOMED Code(s): 20846693528043538 (2) Abdominal pain Current Visit: Yes Status: Acute Code(s): R10.9 - UNSPECIFIED ABDOMINAL PAIN SNOMED Code(s): 58095287 Plan: 1patient presented to hospital with intractable nausea vomiting and abdominal pain in this patient who is status post laparoscopic cholecystectomy CT abdominal pelvis did not show any abscess however there was concern for possible omental infarct the periumbilical port site is currently stage and is no swelling or redness mild tenderness 2we will wait for the stool for C. diff and also obtain stool culture 3patient is status post laparotomy partial omentectomy and primary repair of incisional/port site hernia culture has been obtained which are currently pending patient to continue with the Zosyn Time with Patient: Less than 30
[2022-10-25] MEDS: PANTOPRAZOLE 40 MG TABLET PO SCH (16:32)
[2022-10-25] MEDS: PRAZOSIN 1 MG CAP PO SCH (20:31)
[2022-10-26] MEDS: SODIUM CHLORIDE 0.9% 1,000 ML IV SCH (00:20)
[2022-10-26] MEDS: HYDROmorphone 0.5 MG/0.5 ML SYRINGE IVP PRN ×3 (00:49→09:49)
--- NOTE | 2022-10-26 03:16 | PN ---
PROGRESS NOTE DATE OF SERVICE: 10/25/2022 SUBJECTIVE: This is a 41-year-old gentleman who was admitted with abdominal pain after surgery, had repeat exploration by Surgery. The patient underwent laparotomy with partial omentectomy and primary repair of incisional port site hernia, scar revision, recreation of umbilicus. The patient is complaining of abdominal pain. No chest pain or palpitation. The patient has empiric antibiotics. PHYSICAL EXAMINATION: VITAL SIGNS: Pulse is 97, blood pressure 146/88, respirations 18. HEENT: Conjunctivae are normal. NECK: No JVD. CARDIOVASCULAR: S1, S2. RESPIRATIONS: Breath sounds diminished at the bases. ABDOMEN: Soft. Status post surgery. NERVOUS SYSTEM: No focal deficits. LABORATORIES: Hemoglobin 12.1. The rest of the labs are noted. ASSESSMENT: 1. Postoperative abdominal pain, possibly secondary to incarcerated incisional port site hernia, status post laparotomy with partial omentectomy and primary repair of incisional port site hernia and scar revision with creation of umbilicus. 2. Suspected infection at the time of admission. 3. Abnormal CT scan. 4. History of MRSA. 5. History of coronary artery disease. 6. Multiple medical issues. 7. History of recent cholecystectomy. RECOMMENDATIONS: I recommend to continue current medications and continue symptomatic treatment. Continue the antibiotics. Otherwise, repeat labs. Closely follow up with Surgery and infectious Disease. Guarded prognosis because of the multiple complex medical issues. See orders for details. The cultures are negative so far. We will await for the final report of the cultures. MMODL / IJN: [id number] /
[2022-10-26 03:24] VITALS: RESP 18; TEMP 98
[2022-10-26] MEDS: PIPERACILLIN-TAZOBACTAM 3.375 GM in SODIUM CHLORIDE 0.9% 100 ML IVPB SCH ×2 (03:32→11:39)
[2022-10-26 09:14] LABS: Basophils # (A) 0.02 X 10*3/uL (0.00-0.10); Basophils % (A) 0.3 %; Eosinophils # (A) 0.33 X 10*3/uL (0.04-0.35); Eosinophils % (A) 4.6 %; HCT 38.9 % (39.6-50.0); HGB 12.9 g/dL (13.0-17.0); Immature Grans, Automated 0.1 %; Lymphocytes # (A) 2.34 X 10*3/uL (0.90-5.00); Lymphocytes % (A) 32.7 %; MCH 30.5 pg (27.0-32.0); MCHC 33.2 g/dL (32.0-37.0); Mean Platelet Volume 10.5 fL (9.5-12.2); Monocytes # (A) 0.72 X 10*3/uL (0.20-1.00); Monocytes % (A) 10.1 %; NRBC Per 100 WBC 0 /100 WBCS (0.0-0.0); Neutrophils # (A) 3.73 X 10*3/uL (1.80-7.70); Neutrophils % (A) 52.2 %; Platelet Count 265 X 10*3/uL (140-440); RBC 4.23 X 10*6/uL (4.40-5.60); RDW 12.5 % (11.5-14.5); WBC 7.15 X 10*3/uL (4.50-10.00)
[2022-10-26 09:22] LABS: African American GFR (CKD) 116.1 (60.0-200.0); Albumin 3.8 g/dL (3.8-4.9); Albumin/Globulin Ratio 1.88 (1.60-3.17); Anion Gap 10.1 mmol/L (10.00-18.00); BUN/Creat Ratio 8.59 Ratio (12.00-20.00); Blood Urea Nitrogen 8.2 mg/dL (9.0-27.0); Calcium 9.1 mg/dL (8.7-10.3); Carbon Dioxide 25.7 mmol/L (20.0-27.5); Non-African American GFR(CKD) 100.2 (60.0-200.0); Potassium 3.7 mmol/L (3.5-5.5); Total Bilirubin 0.3 mg/dL (0.30-1.20); Total Protein 5.9 g/dL (6.2-8.2)
[2022-10-26] MEDS: METOPROLOL TARTRATE 12.5 MG TAB PO SCH (09:43)
[2022-10-26] MEDS: PARoxetine 20 MG TAB PO SCH (09:43)
[2022-10-26] MEDS: HEPARIN SODIUM,PORCINE/PF 5,000 UNIT/0.5 ML SYRINGE SQ SCH (09:43)
[2022-10-26] MEDS: ISOSORBIDE MONONITRATE ER 30 MG TAB.ER.24H PO SCH (09:43)
[2022-10-26] MEDS: PANTOPRAZOLE 40 MG TABLET PO SCH (09:44)
[2022-10-26] MEDS: GABAPENTIN 300 MG CAP PO SCH (09:48)
[2022-10-26 10:50] VITALS: BP 132/78; PULSE 70
--- NOTE | 2022-10-26 13:31 | P.PN ---
Subjective Progress Note Date: 10/26/22 Principal diagnosis: Abdominal pain/necrotic omental fat Patient is a 41-year-old male with a recent laparoscopic cholecystectomy presenting back to the hospital with periumbilical pain along with vomiting and diarrhea CT abdominal pelvis did not show any abscess however did shows possible necrosis of the omental fat in the periumbilical area. She is status post laparotomy with partial omentectomy and primary care physician/port site hernia scar revision and recreationa of umbilicus [ on today's evaluation that is 10/26/2022, the patient continues to be febrile, the patient pain in the socrates-umbilical area has decreased in intensity, the patient denies chest pain shortness of breath or cough no nausea no vomiting or diarrhea Objective - Vital Signs Vital signs: Vital Signs Temp 98.0 F 10/26/22 07:52 Pulse 70 10/26/22 07:52 Resp 18 10/26/22 07:52 BP 132/78 10/26/22 07:52 Pulse Ox 96 10/26/22 07:52 FiO2 Intake & Output 10/25/22 10/26/22 10/26/22 18:59 06:59 18:59 Intake Total 594 296 Balance 594 296 Intake: Oral 594 296 Other: Voiding Method Toilet Toilet # Voids 3 1 # Bowel Movements 0 - Exam GENERAL DESCRIPTION: A middle-age male lying in bed in no distress RESPIRATORY SYSTEM: Unlabored breathing , decreased breath sounds at bases HEART: S1 S2 regular rate and rhythm , ABDOMEN: Soft , mild socrates-umbilicus tenderness EXTREMITIES: No edema feet - Labs CBC & Chem 7: 10/26/22 03:45 10/26/22 03:45 Labs: Abnormal Lab Results - Last 24 Hours (Table) 10/25/22 10/25/22 10/26/22 Range/Units 06:09 06:09 03:45 RBC 4.06 L 4.23 L (4.40-5.60) X 10*6/uL Hgb 12.1 L 12.9 L (13.0-17.0) g/dL Hct 35.9 L 38.9 L (39.6-50.0) % Anion Gap 9.70 L (10.00-18.00) mmol/L BUN 6.2 L (9.0-27.0) mg/dL BUN/Creatinine Ratio 6.20 L (12.00-20.00) Ratio Total Protein 5.4 L (6.2-8.2) g/dL Albumin 3.7 L (3.8-4.9) g/dL 10/26/22 Range/Units 03:45 RBC (4.40-5.60) X 10*6/uL Hgb (13.0-17.0) g/dL Hct (39.6-50.0) % Anion Gap (10.00-18.00) mmol/L BUN 8.2 L (9.0-27.0) mg/dL BUN/Creatinine Ratio 8.59 L (12.00-20.00) Ratio Total Protein 5.9 L (6.2-8.2) g/dL Albumin (3.8-4.9) g/dL Microbiology - Last 24 Hours (Table) 10/24/22 15:00 Gram Stain - Preliminary Abdomen Wound Culture - Preliminary 10/23/22 12:00 Blood Culture - Preliminary Blood No Growth after 48 hours 10/24/22 15:00 Anaerobic Culture - Preliminary Abdomen Assessment and Plan (1) Abnormal CT of the abdomen Current Visit: Yes Status: Acute Code(s): R93.5 - ABN FINDINGS ON DX IMAGING OF ABD REGIONS, INC RETROPERITON SNOMED Code(s): 94101729326052519 (2) Abdominal pain Current Visit: Yes Status: Acute Code(s): R10.9 - UNSPECIFIED ABDOMINAL PAIN SNOMED Code(s): 11259611 Plan: 1patient presented to hospital with intractable nausea vomiting and abdominal pain in this patient who is status post laparoscopic cholecystectomy CT abdominal pelvis did not show any abscess however there was concern for possible omental infarct the periumbilical port site is currently stage and is no swelling or redness mild tenderness 2we will wait for the stool for C. diff and also obtain stool culture 3patient is status post laparotomy partial omentectomy and primary repair of incisional/port site hernia culture has been obtained which are so far negative patient is feeling better and has been cleared for discharge by surgery who will give him a short course of oral Augmentin to be on safe side Time with Patient: Less than 30
--- NOTE | 2022-10-26 21:43 | DS ---
DISCHARGE SUMMARY FINAL DIAGNOSES: 1. Postoperative abdominal pain, possibly secondary to incarcerated incisional port site hernia, status post laparotomy with partial omentectomy and primary repair of incisional port site hernia and scar revision with creation of umbilicus. 2. Suspected infection at the time of admission. The patient improved with empiric antibiotics. 3. Abnormal CAT scan. 4. History of methicillin-resistant Staphylococcus aureus. 5. History of coronary artery disease. 6. Multiple medical issues. DISCHARGE DISPOSITION: The patient will be discharged in stable condition with guarded prognosis HISTORY OF PRESENT ILLNESS: This 41-year-old gentleman with a past medical history of recent surgeries, who was admitted with abdominal pain. As mentioned earlier, Surgery performed laparotomy, and after the surgery, the patient improved significantly. Dr. Louis saw the patient. Empiric antibiotics were given. Overall, the patient PHYSICAL EXAMINATION: VITAL SIGNS: Stable. CARDIOVASCULAR: S1, S2. ABDOMEN: Soft, status post surgery. RECOMMENDATIONS: I recommend to follow up with Dr. Paula and Dr. Lyons as recommended, and antibiotic per Dr. Louis, and rest of the recommendations per Surgery. Protonix 40 mg p.o. b.i.d. See orders for details. MMODL / IJN: [id number] / MTDD
== END 2022-10-26 14:06 | disposition home or self-care (01) | DRG 857 ==
LOC: EC 23:06 → 6NMEDSUR 10-23 01:05 → OBSVTOIN 10-23 11:38 → UNDODISOB 10-26 14:06
PROVIDERS: ADMIT Hospitalist; ATTEND Hospitalist
PROC: 0W0F0ZZ Alteration of Abdominal Wall, Open Approach (ICD-10-PCS; principal; 2022-10-24 15:00)
PROC: 0WQF0ZZ Repair Abdominal Wall, Open Approach (ICD-10-PCS; principal; 2022-10-24 15:00)
PROC: 0DBU0ZZ Excision of Omentum, Open Approach (ICD-10-PCS; principal; 2022-10-24 15:00)
DX: T81.41XA Infection following a procedure, superficial incisional surgical site, initial encounter (principal); K43.0 Incisional hernia with obstruction, without gangrene; F43.10 Post-traumatic stress disorder, unspecified; I25.10 Atherosclerotic heart disease of native coronary artery without angina pectoris; Z79.899 Other long term (current) drug therapy; Z86.14 Personal history of Methicillin resistant Staphylococcus aureus infection; Z87.891 Personal history of nicotine dependence; G89.29 Other chronic pain; M54.9 Dorsalgia, unspecified; M25.569 Pain in unspecified knee; I45.10 Unspecified right bundle-branch block; Z98.1 Arthrodesis status; Z79.82 Long term (current) use of aspirin; Z20.822 Contact with and (suspected) exposure to COVID-19; Z28.311 Partially vaccinated for COVID-19
CPT/HCPCS: 36415; 74177; 80053; 82150; 83605; 83690; 84145; 85025; 86140; 87040; 87070; 87075; 87086; 87205; 87636; 96361; 96374; 96375; 96376; 99285

== ENCOUNTER 2022-10-29 18:30 | Emergency (ER) | payer OTHER, MEDICARE ==
[2022-10-29 19:12] VITALS: BP 111/71; PULSE 72; RESP 16; TEMP 98.4
--- NOTE | 2022-10-29 19:40 | ED ---
General Adult HPI - General Chief complaint: Abdominal Pain Stated complaint: post op - fall - surgical site open wound Time Seen by Provider: 10/29/22 19:20 Source: patient, RN notes reviewed, old records reviewed Mode of arrival: ambulatory Limitations: no limitations - History of Present Illness Initial comments: This is a 41-year-old male who presents emergency Department because he states he had a small hernia repaired on [place] around the umbilicus. Patient states today he tripped and fell and he felt a pull in the incision site and th en had some bleeding from between the gregory and he put some quick clot on it and it stopped the bleeding but he was concerned so he came in to be evaluated. Patient denies any nausea vomiting diarrhea. Patient denies any heavy bleeding. He denies any increase in abdominal pain. Patient states the area right around the umbilicus is mildly tender but it was mildly tender prior to the fall. She denies hitting his head or neck. Patient denies any other injury from the fall. - Related Data Home Medications Medication Instructions Recorded Confirmed PARoxetine HCL [Paxil] 60 mg PO DAILY 08/22/19 10/23/22 traZODone HCL 150 mg PO HS PRN 10/09/20 10/23/22 Gabapentin 600 mg PO TID 06/05/22 10/23/22 Prazosin HCl 6 mg PO HS 06/05/22 10/23/22 Acetaminophen Tab [Tylenol] 325 - 650 mg PO Q6H PRN 10/16/22 10/23/22 Aspirin EC [Ecotrin] 325 mg PO QID PRN 10/16/22 10/23/22 EPINEPHrine (Auto Inject) [Epipen] 0.3 mg IM ONCE PRN 10/16/22 10/23/22 Previous Rx's Medication Instructions Recorded Isosorbide Mononitrate ER [Imdur] 30 mg PO DAILY #30 tab 06/08/22 HYDROcodone/APAP 7.5-325MG [[place] 1 tab PO Q4H PRN 3 Days #18 tab 10/19/22 7.5-325] Metoprolol Tartrate [Lopressor] 12.5 mg PO BID tab 10/20/22 Amoxic-Pot Clav 875-125Mg 1 tab PO Q12HR 5 Days #10 tab 10/26/22 [Augmentin 875-125] Pantoprazole [Protonix] 40 mg PO AC-BID #60 tab 10/26/22 Allergies Allergy/AdvReac Type Severity Reaction Status Date / Time ketorolac tromethamine Allergy Rash/Hives/Swelling Verified 10/23/22 10:23 [From Toradol] at injection site venom-honey bee Allergy Anaphylaxis Verified 10/23/22 10:23 [bee venom (honey bee)] naproxen AdvReac Nausea & Verified 10/23/22 10:23 Vomiting & Diarrhea Review of Systems ROS Statement: Those systems with pertinent positive or pertinent negative responses have been documented in the HPI. ROS Other: All systems not noted in ROS Statement are negative. Past Medical History Past Medical History: Coronary Artery Disease (CAD) Additional Past Medical History / Comment(s): chronic knee pain, back pain, RBBB, elevated heart rate. History of Any Multi-Drug Resistant Organisms: MRSA Date of last positivie culture/infection: 2008 MDRO Source:: thumb Past Surgical History: Appendectomy, Back Surgery, Cholecystectomy, Orthopedic Surgery Additional Past Surgical History / Comment(s): l4-5 fusion march 2020,l4-s1 fusion in 12/2021, carpel tunnnel release, vascectomy, skin graft knee surg x4, right hip surgery. lower bowel surgery, cholecystectomy 10/2022 Past Anesthesia/Blood Transfusion Reactions: No Reported Reaction Past Psychological History: Anxiety, Depression, PTSD Smoking Status: Former smoker Past Alcohol Use History: Occasional Past Drug Use History: None Reported - Past Family History Father Family Medical History: No Reported History Additional Family Medical History / Comment(s): Father is alive at age 61 was no major medical problems. Mother Family Medical History: No Reported History Additional Family Medical History / Comment(s): Mother is alive at age 56 with history of spinal surgeries and neurological disorders. one sister with no major medical problems. Patient has 1 son and 1 daughter with no major medical problems. General Exam - General Exam Comments Initial Comments: GENERAL: Patient is well-developed and well-nourished. Patient is nontoxic and well- hydrated and is in no acute distress. ENT: Neck is soft and supple. No significant lymphadenopathy is noted. Oropharynx is clear. Moist mucous membranes. Neck has full range of motion without eliciting any pain. EYES: The sclera were anicteric and conjunctiva were pink and moist. Extraocular movements were intact and pupils were equal round and reactive to light. Eyelids were unremarkable. PULMONARY: Unlabored respirations. Good breath sounds bilaterally. No audible rales rhonchi or wheezing was noted. CARDIOVASCULAR: There is a regular rate and rhythm without any murmurs gallops or rubs. ABDOMEN: Patient has a midline suture site with gregory around the umbilicus. There is no active bleeding there is an area that looks like it might of been bleeding earlier but it has stopped. Patient has minimal tenderness there is no rebound or guarding SKIN: Skin is clear with no lesions or rashes and otherwise unremarkable. NEUROLOGIC: Patient is alert and oriented x3. Cranial nerves II through XII are grossly intact. Motor and sensory are also intact. Normal speech, volume and content. Symmetrical smile. MUSCULOSKELETAL: Normal extremities with adequate strength and full range of motion. No lower extremity swelling or edema. No calf tenderness. LYMPHATICS: No significant lymphadenopathy is noted PSYCHIATRIC: Normal psychiatric evaluation. Limitations: no limitations Course Vital Signs 10/29/22 19:08 Temperature 98.4 F Pulse Rate 72 Respiratory 16 Rate Blood Pressure 111/71 O2 Sat by Pulse 97 Oximetry Medical Decision Making - Medical Decision Making Was pt. sent in by a medical professional or institution? @ -He called his office and they told him to come into the emergency department. Did you speak to anyone other than the patient for history? @ -Family Did you review nursing and triage notes? @ -Agreed as nursing notes Were old charts reviewed? @ -I looked up previous admissions and surgical Differential Diagnosis? @ -Differential Abdominal Pain Men: Appendicitis, cholecystitis, diverticulosis, ischemic bowel, pancreatitis, hepatitis, UTI, gastroenteritis, AAA, incarcerated hernia, bowel obstruction, constipation, inflammatory bowel, hepatitis, peptic ulcer disease, splenic infarction, perforated viscus, testicular torsion, this is not meant to be an all-inclusive list EKG interpreted by me (3pts min.)? @ -None X-rays interpreted by me (1pt min.)? @ -None CT interpreted by me (1pt min.)? @ -Done U/S interpreted by me (1pt. min.)? @ -None What testing was considered but not performed? (CT, X-rays, U/S, labs)? Why? @ -I consider x-rays of the abdomen or CT of the abdomen but patient was very minimally tender there was no rebound or guarding so I did not think it was necessary. What meds were considered but not given? Why? @ -None Did you discuss the management of the patient with other professionals? @ -I discussed the case with Dr. mao she was in agreement with sending the patient home to follow-up with her in the office on Wednesday Did you reconcile home meds? @ -None Was smoking cessation discussed for >3mins.? @ -None Was critical care preformed (if so, how long)? @ -Known Were there social determinants of health that impacted care today? How? (Homelessness, low income, unemployed, alcoholism, drug addiction, transportation, low edu. Level, literacy, decrease access to med. care, senior living, rehab)? @ -No Was there de-escalation of care discussed even if they declined? (Discuss DNR or withdrawal of care, Hospice)? @ -Known What co-morbidities impacted this encounter? (DM, HTN, Smoking, COPD, CAD, Cancer, CVA, Hep., AIDS, mental health diagnosis, sleep apnea, morbid obesity)? @ -No Was patient admitted / discharged? @ -Patient be discharged home to follow-up with primary medical care doctor. I spoke with Dr. Lyons she was in agreement with this. Patient's abdomen was minimally tender there was no active bleeding and I did not believe he cause any significant damage with the fall so I sent the patient home to follow-up as an outpatient. Undiagnosed new problem with uncertain prognosis? @ -None Drug Therapy requiring intensive monitoring for toxicity (Heparin, Nitro, Insulin, Cardizem)? @ -Known Were any procedures done? @ -None Diagnosis/symptom? @ -Postop bleeding Acute, or Chronic, or Acute on Chronic? @ -Acute Uncomplicated (without systemic symptoms) or Complicated (systemic symptoms)? @ -Uncomplicated Side effects of treatment? @ -None Exacerbation, Progression, or Severe Exacerbation] @ -No Poses a threat to life or bodily function? @ -No Disposition Clinical Impression: Postoperative bleeding from incision Disposition: HOME SELF-CARE Condition: Good Additional Instructions: Patient can apply ice to it through a cloth patient should not keep them with 15-20 minutes at a time. Patient is to follow-up with Dr. Lyons at 9:00 on Wednesday morning he should attempt calling Serena's office tomorrow but if unsuccessful he is just show up at 9:00 on Wednesday Is patient prescribed a controlled substance at d/c from ED?: No Referrals: Nik Paula MD [Primary Care Provider] - 1-2 days Time of Disposition: 19:46
--- NOTE | 2022-10-29 20:44 | ED ---
General Adult HPI - General Chief complaint: Fall Stated complaint: post op - fall - surgical site open wound Source: RN notes reviewed - History of Present Illness Initial comments: 41 year old male 5 days s/p exploratory laparatomy (performed 10/24)presents to the emergency department after a fall. He was walking and tripped and fell onto his surgical site. He notes he fell on 3 plywood crates. He notes bleeding from him umblical region. He used quick clot to help the bleeding. He denies dizziness, lightheadedness, fever, chills, shortness of breath. - Related Data Home Medications Medication Instructions Recorded Confirmed PARoxetine HCL [Paxil] 60 mg PO DAILY 08/22/19 10/23/22 traZODone HCL 150 mg PO HS PRN 10/09/20 10/23/22 Gabapentin 600 mg PO TID 06/05/22 10/23/22 Prazosin HCl 6 mg PO HS 06/05/22 10/23/22 Acetaminophen Tab [Tylenol] 325 - 650 mg PO Q6H PRN 10/16/22 10/23/22 Aspirin EC [Ecotrin] 325 mg PO QID PRN 10/16/22 10/23/22 EPINEPHrine (Auto Inject) [Epipen] 0.3 mg IM ONCE PRN 10/16/22 10/23/22 Previous Rx's Medication Instructions Recorded Isosorbide Mononitrate ER [Imdur] 30 mg PO DAILY #30 tab 06/08/22 HYDROcodone/APAP 7.5-325MG [[place] 1 tab PO Q4H PRN 3 Days #18 tab 10/19/22 7.5-325] Metoprolol Tartrate [Lopressor] 12.5 mg PO BID tab 10/20/22 Amoxic-Pot Clav 875-125Mg 1 tab PO Q12HR 5 Days #10 tab 10/26/22 [Augmentin 875-125] Pantoprazole [Protonix] 40 mg PO AC-BID #60 tab 10/26/22 Allergies Allergy/AdvReac Type Severity Reaction Status Date / Time ketorolac tromethamine Allergy Rash/Hives/Swelling Verified 10/23/22 10:23 [From Toradol] at injection site venom-honey bee Allergy Anaphylaxis Verified 10/23/22 10:23 [bee venom (honey bee)] naproxen AdvReac Nausea & Verified 10/23/22 10:23 Vomiting & Diarrhea Review of Systems ROS Statement: Those systems with pertinent positive or pertinent negative responses have been documented in the HPI. ROS Other: All systems not noted in ROS Statement are negative. Past Medical History Past Medical History: Coronary Artery Disease (CAD) Additional Past Medical History / Comment(s): chronic knee pain, back pain, RBBB, elevated heart rate. History of Any Multi-Drug Resistant Organisms: MRSA Date of last positivie culture/infection: 2008 MDRO Source:: thumb Past Surgical History: Appendectomy, Back Surgery, Cholecystectomy, Orthopedic Surgery Additional Past Surgical History / Comment(s): l4-5 fusion march 2020,l4-s1 fusion in 12/2021, carpel tunnnel release, vascectomy, skin graft knee surg x4, right hip surgery. lower bowel surgery, cholecystectomy 10/2022 Past Anesthesia/Blood Transfusion Reactions: No Reported Reaction Past Psychological History: Anxiety, Depression, PTSD Additional Psychological History / Comment(s): Pt resides with his spouse and 2 children. He is independent. He is retired. He served in the . Smoking Status: Former smoker Past Alcohol Use History: Occasional Additional Past Alcohol Use History / Comment(s): Patient was a smoker of half a pack per day for 10 years and quit in december 2019, and occasionally still smokes one or two. He denies any marijuana or street drug use. He drinks alcohol socially. He currently lives at home with his . 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 Past Drug Use History: None Reported - Past Family History Father Family Medical History: No Reported History Additional Family Medical History / Comment(s): Father is alive at age 61 was no major medical problems. Mother Family Medical History: No Reported History Additional Family Medical History / Comment(s): Mother is alive at age 56 with history of spinal surgeries and neurological disorders. one sister with no major medical problems. Patient has 1 son and 1 daughter with no major medical problems. Disposition Referrals: Nik Paula MD [Primary Care Provider] - 1-2 days
== END 2022-10-29 19:52 | disposition home or self-care (01) ==
LOC: EC 18:30
DX: Z04.3 Encounter for examination and observation following other accident (principal); I25.10 Atherosclerotic heart disease of native coronary artery without angina pectoris; F41.9 Anxiety disorder, unspecified; F32.A Depression, unspecified; Z87.891 Personal history of nicotine dependence; Z88.6 Allergy status to analgesic agent; Z91.030 Bee allergy status
CPT/HCPCS: 99283

== ENCOUNTER 2022-10-31 19:34 | Emergency (ER) | payer OTHER, MEDICARE ==
[2022-10-31 19:38] VITALS: RESP 18; TEMP 97.6
[2022-10-31 20:57] LABS: Basophils # (A) 0.1 k/uL (0-0.2); Basophils % (A) 2 %; Eosinophils # (A) 0.9 k/uL (0-0.7); Eosinophils % (A) 12 %; HGB 14.2 gm/dL (13.0-17.5); Lymphocytes # (A) 2.5 k/uL (1.0-4.8); Lymphocytes % (A) 34 %; MCH 29.3 pg (25.0-35.0); MCHC 33.2 g/dL (31.0-37.0); MCV 88.5 fL (80.0-100.0); Monocytes # (A) 0.4 k/uL (0-1.0); Monocytes % (A) 5 %; Neutrophils # (A) 3.4 k/uL (1.3-7.7); Neutrophils % (A) 46 %; Platelet Count 288 k/uL (150-450); RBC 4.86 m/uL (4.30-5.90); RDW 12.4 % (11.5-15.5); WBC 7.4 k/uL (3.8-10.6)
[2022-10-31 21:12] LABS: ALT 35 U/L (4-49); AST 22 U/L (17-59); African American GFR (CKD) >90 (>60 ml/min/1.73 sqM); Alkaline Phosphatase 59 U/L (38-126); Amylase 49 U/L (30-110); Anion Gap 6 mmol/L; Blood Urea Nitrogen 15 mg/dL (9-20); Calcium 9.5 mg/dL (8.4-10.2); Carbon Dioxide 24 mmol/L (22-30); Chloride 109 mmol/L (98-107); Glucose 107 mg/dL (74-99); Lipase 93 U/L (23-300); Non-African American GFR(CKD) >90 (>60 ml/min/1.73 sqM); Potassium 3.9 mmol/L (3.5-5.1); Sodium 139 mmol/L (137-145); Total Bilirubin 0.3 mg/dL (0.2-1.3); Total Protein 6.5 g/dL (6.3-8.2)
[2022-10-31] MEDS ORDERED: SODIUM CHLORIDE 0.9% 1,000 ML IV STA (21:50)
[2022-10-31] MEDS ORDERED: HYDROmorphone 1 MG/ML 1 ML SYRINGE IVP STA (21:50)
[2022-10-31] MEDS ORDERED: ONDANSETRON 4 MG/2 ML VIAL IVP STA (21:50)
--- NOTE | 2022-10-31 21:51 | ED ---
General Adult HPI - General Chief complaint: Nausea/Vomiting/Diarrhea Stated complaint: post surgery/pain,vomiting,diarrhea Time Seen by Provider: 10/31/22 20:43 Source: patient, RN notes reviewed Mode of arrival: ambulatory Limitations: no limitations - History of Present Illness Initial comments: 41-year-old male presents to the emergency Department with complaints of abdominal discomfort related to 5 episodes of diarrhea and 4 episodes of vomiting, onset today. States his diarrhea has been thin brown liquid without evidence of blood. Reports vomiting and diarrhea occurs with oral intake. Has been taking anti-diarrheal medication today. States his abdominal pain has been a constant 8/10 since discharge from ED on 10/29/22. Reports concern about hemoglobin level and states he was told he may need a blood transfusion. Reports some drainage from incision sites, though none currently. Denies fever, chills, headache, back pain, chest pain, dysuria, new falls, trauma, or injury. - Related Data Home Medications Medication Instructions Recorded Confirmed PARoxetine HCL [Paxil] 60 mg PO DAILY 08/22/19 10/23/22 traZODone HCL 150 mg PO HS PRN 10/09/20 10/23/22 Gabapentin 600 mg PO TID 06/05/22 10/23/22 Prazosin HCl 6 mg PO HS 06/05/22 10/23/22 Acetaminophen Tab [Tylenol] 325 - 650 mg PO Q6H PRN 10/16/22 10/23/22 Aspirin EC [Ecotrin] 325 mg PO QID PRN 10/16/22 10/23/22 EPINEPHrine (Auto Inject) [Epipen] 0.3 mg IM ONCE PRN 10/16/22 10/23/22 Previous Rx's Medication Instructions Recorded Isosorbide Mononitrate ER [Imdur] 30 mg PO DAILY #30 tab 06/08/22 HYDROcodone/APAP 7.5-325MG [[place] 1 tab PO Q4H PRN 3 Days #18 tab 10/19/22 7.5-325] Metoprolol Tartrate [Lopressor] 12.5 mg PO BID tab 10/20/22 Amoxic-Pot Clav 875-125Mg 1 tab PO Q12HR 5 Days #10 tab 10/26/22 [Augmentin 875-125] Pantoprazole [Protonix] 40 mg PO AC-BID #60 tab 10/26/22 Allergies Allergy/AdvReac Type Severity Reaction Status Date / Time ketorolac tromethamine Allergy Rash/Hives/Swelling Verified 10/31/22 19:38 [From Toradol] at injection site venom-honey bee Allergy Anaphylaxis Verified 10/31/22 19:38 [bee venom (honey bee)] naproxen AdvReac Nausea & Verified 10/31/22 19:38 Vomiting & Diarrhea Review of Systems ROS Statement: Those systems with pertinent positive or pertinent negative responses have been documented in the HPI. ROS Other: All systems not noted in ROS Statement are negative. Past Medical History Past Medical History: Coronary Artery Disease (CAD) Additional Past Medical History / Comment(s): chronic knee pain, back pain, RBBB, elevated heart rate. History of Any Multi-Drug Resistant Organisms: MRSA Date of last positivie culture/infection: 2008 MDRO Source:: thumb Past Surgical History: Appendectomy, Back Surgery, Cholecystectomy, Orthopedic Surgery Additional Past Surgical History / Comment(s): l4-5 fusion march 2020,l4-s1 fusion in 12/2021, carpel tunnnel release, vascectomy, skin graft knee surg x4, right hip surgery. lower bowel surgery, cholecystectomy 10/2022 Past Anesthesia/Blood Transfusion Reactions: No Reported Reaction Past Psychological History: Anxiety, Depression, PTSD Smoking Status: Former smoker Past Alcohol Use History: Occasional Past Drug Use History: None Reported - Past Family History Father Family Medical History: No Reported History Additional Family Medical History / Comment(s): Father is alive at age 61 was no major medical problems. Mother Family Medical History: No Reported History Additional Family Medical History / Comment(s): Mother is alive at age 56 with history of spinal surgeries and neurological disorders. one sister with no major medical problems. Patient has 1 son and 1 daughter with no major medical problems. General Exam Limitations: no limitations General appearance: alert, in no apparent distress ENT exam: Present: mucous membranes moist Respiratory exam: Present: normal lung sounds bilaterally. Absent: respiratory distress, wheezes, rales, rhonchi, stridor Cardiovascular Exam: Present: regular rate, normal rhythm, normal heart sounds. Absent: systolic murmur, diastolic murmur, rubs, gallop, clicks GI/Abdominal exam: Present: soft, tenderness (mild tenderness across upper abdomen), normal bowel sounds, other (Abdominal incisions (gregory) intact with no erythema, discharge, or drainage. Surrounding tissue soft and nontender. No active vomiting or diarrhea.). Absent: distended, guarding, rebound, rigid Back exam: Absent: CVA tenderness (R), CVA tenderness (L) Neurological exam: Present: alert, oriented X3 Psychiatric exam: Present: normal affect, normal mood Skin exam: Present: warm, dry, intact, normal color. Absent: rash Course Vital Signs 10/31/22 10/31/22 19:36 22:06 Temperature 97.6 F Pulse Rate 78 96 Respiratory 18 18 Rate Blood Pressure 151/90 124/77 O2 Sat by Pulse 97 97 Oximetry - Reevaluation(s) Reevaluation #1: 10/31/22 23:54 Upon reassessment, patient reports improvement. Updated on results. Patient verbalizes readiness for discharge home. Patient verbalizes understanding and agrees with this plan. Medical Decision Making - Medical Decision Making Was pt. sent in by a medical professional or institution? @ -No Did you speak to anyone other than the patient for history? @ -No Did you review nursing and triage notes? @ -Yes, I agree Were old charts reviewed? @ -Previous admission and recent surgical notes Differential Diagnosis? @ -Differentials for vomiting and diarrhea: Viral illness, gastroenteritis, inflammatory bowel, medication side effect, this is not meant to be an all- inclusive list Differential Abdominal Pain Men: Postop complication, ischemic bowel, pancreatitis, hepatitis, UTI, gastroenteritis, bowel obstruction, inflammatory bowel, hepatitis, this is not meant to be an all-inclusive list Differentials for incision site concerns: cellulitis, abscess, incision site infection, wound dehiscence, this is not meant to be an all-inclusive list EKG interpreted by me (3pts min.)? @ -None X-rays interpreted by me (1pt min.)? @ -None CT interpreted by me (1pt min.)? @ -None U/S interpreted by me (1pt. min.)? @ -None What testing was considered but not performed? (CT, X-rays, U/S, labs)? Why? @ KUB and CT abdomen and pelvis considered but not performed as they had been done recently and there was no evidence of concern for obstruction or acute change. What meds were considered but not given? Why? @ -Antidiarrheal agent considered, though not given as patient has had no episodes of diarrhea while present in the emergency department and has previously taken Did you discuss the management of the patient with other professionals? @ -No Did you reconcile home meds? @ -Yes Was smoking cessation discussed for >3mins.? @ -No Was critical care preformed (if so, how long)? @ -No Were there social determinants of health that impacted care today? How? (Homelessness, low income, unemployed, alcoholism, drug addiction, transportation, low edu. Level, literacy, decrease access to med. care, [facility], rehab)? @ -No Was there de-escalation of care discussed even if they declined? (Discuss DNR or withdrawal of care, Hospice)? @ -No What co-morbidities impacted this encounter? (DM, HTN, Smoking, COPD, CAD, Cancer, CVA, Hep., AIDS, mental health diagnosis, sleep apnea, morbid obesity)? @ -None Was patient admitted / discharged? @ -Discharged Undiagnosed new problem with uncertain prognosis? @ -None Drug Therapy requiring intensive monitoring for toxicity (Heparin, Nitro, Insulin, Cardizem)? @ -None Were any procedures done? @ -None Diagnosis/symptom? @ -Abdominal pain 41-year-old male with recent cholecystectomy and hernia repair presents to the emergency department with multiple complaints including nausea, vomiting, diarrhea, abdominal pain, concern with abnormal labs, and concerns with incision site healing. Upon exam, patient is well-appearing and in no acute distress. Mucous membranes are moist. He is not actively having any vomiting or diarrhea. Abdomen is soft and minimally tender upon palpation. Incision site intact with no purulent drainage or concerning areas of erythema. He is not experiencing any episodes of vomiting or diarrhea while present in ED. Laboratory studies w ere obtained. No leukocytosis. Hemoglobin 14.2, hematocrit 43.0. Sodium 139, potassium 3.9. AST 22, ALT 35. Lipase 93. Urinalysis unremarkable. Viral swabs are negative. Vital signs stable. Patient was given IV fluids, Dilaudid, and Zofran with improvement. No evidence of dehydration, active GI illness, acute abdominal findings, infectious process, or abnormal labs. He is instructed to follow up with his surgeon as scheduled on Wednesday. Return parameters discussed in detail. Patient verbalizes understanding and agrees with this plan. Attending: Jf. Acute, or Chronic, or Acute on Chronic? @ -Acute Uncomplicated (without systemic symptoms) or Complicated (systemic symptoms)? @ -Uncomplicated Side effects of treatment? @ -None Exacerbation, Progression, or Severe Exacerbation] @ -Not applicable Poses a threat to life or bodily function? @ -No - Lab Data Result diagrams: 10/31/22 20:47 10/31/22 20:47 Lab Results 10/31/22 10/31/22 10/31/22 Range/Units 20:47 20:47 22:01 WBC 7.4 (3.8-10.6) k/uL RBC 4.86 (4.30-5.90) m/uL Hgb 14.2 (13.0-17.5) gm/dL Hct 43.0 (39.0-53.0) % MCV 88.5 (80.0-100.0) fL MCH 29.3 (25.0-35.0) pg MCHC 33.2 (31.0-37.0) g/dL RDW 12.4 (11.5-15.5) % Plt Count 288 (150-450) k/uL MPV 8.0 Neutrophils % 46 % Lymphocytes % 34 % Monocytes % 5 % Eosinophils % 12 % Basophils % 2 % Neutrophils # 3.4 (1.3-7.7) k/uL Lymphocytes # 2.5 (1.0-4.8) k/uL Monocytes # 0.4 (0-1.0) k/uL Eosinophils # 0.9 H (0-0.7) k/uL Basophils # 0.1 (0-0.2) k/uL Sodium 139 (137-145) mmol/L Potassium 3.9 (3.5-5.1) mmol/L Chloride 109 H (98-107) mmol/L Carbon Dioxide 24 (22-30) mmol/L Anion Gap 6 mmol/L BUN 15 (9-20) mg/dL Creatinine 0.80 (0.66-1.25) mg/dL Est GFR (CKD-EPI)AfAm >90 (>60 ml/min/1.73 sqM) Est GFR (CKD-EPI)NonAf >90 (>60 ml/min/1.73 sqM) Glucose 107 H (74-99) mg/dL Calcium 9.5 (8.4-10.2) mg/dL Total Bilirubin 0.3 (0.2-1.3) mg/dL AST 22 (17-59) U/L ALT 35 (4-49) U/L Alkaline Phosphatase 59 (38-126) U/L Total Protein 6.5 (6.3-8.2) g/dL Albumin 4.0 (3.5-5.0) g/dL Amylase 49 (30-110) U/L Lipase 93 (23-300) U/L Urine Color Yellow Urine Appearance Clear (Clear) Urine pH 6.0 (5.0-8.0) Ur Specific [place] 1.032 (1.001-1.035) Urine Protein Trace H (Negative) Urine Glucose (UA) Negative (Negative) Urine Ketones Negative (Negative) Urine Blood Negative (Negative) Urine Nitrite Negative (Negative) Urine Bilirubin Negative (Negative) Urine Urobilinogen 3.0 (<2.0) mg/dL Ur Leukocyte Esterase Negative (Negative) Coronavirus (PCR) (Not Detectd) Influenza Type A RNA (Not Detectd) Influenza Type B (PCR) (Not Detectd) 10/31/22 10/31/22 Range/Units 22:01 22:01 WBC (3.8-10.6) k/uL RBC (4.30-5.90) m/uL Hgb (13.0-17.5) gm/dL Hct (39.0-53.0) % MCV (80.0-100.0) fL MCH (25.0-35.0) pg MCHC (31.0-37.0) g/dL RDW (11.5-15.5) % Plt Count (150-450) k/uL MPV Neutrophils % % Lymphocytes % % Monocytes % % Eosinophils % % Basophils % % Neutrophils # (1.3-7.7) k/uL Lymphocytes # (1.0-4.8) k/uL Monocytes # (0-1.0) k/uL Eosinophils # (0-0.7) k/uL Basophils # (0-0.2) k/uL Sodium (137-145) mmol/L Potassium (3.5-5.1) mmol/L Chloride (98-107) mmol/L Carbon Dioxide (22-30) mmol/L Anion Gap mmol/L BUN (9-20) mg/dL Creatinine (0.66-1.25) mg/dL Est GFR (CKD-EPI)AfAm (>60 ml/min/1.73 sqM) Est GFR (CKD-EPI)NonAf (>60 ml/min/1.73 sqM) Glucose (74-99) mg/dL Calcium (8.4-10.2) mg/dL Total Bilirubin (0.2-1.3) mg/dL AST (17-59) U/L ALT (4-49) U/L Alkaline Phosphatase (38-126) U/L Total Protein (6.3-8.2) g/dL Albumin (3.5-5.0) g/dL Amylase (30-110) U/L Lipase (23-300) U/L Urine Color Urine Appearance (Clear) Urine pH (5.0-8.0) Ur Specific [place] (1.001-1.035) Urine Protein (Negative) Urine Glucose (UA) (Negative) Urine Ketones (Negative) Urine Blood (Negative) Urine Nitrite (Negative) Urine Bilirubin (Negative) Urine Urobilinogen (<2.0) mg/dL Ur Leukocyte Esterase (Negative) Coronavirus (PCR) Not Detected (Not Detectd) Influenza Type A RNA Not Detected (Not Detectd) Influenza Type B (PCR) Not Detected (Not Detectd) Disposition Clinical Impression: Abdominal pain Disposition: HOME SELF-CARE Condition: Stable Instructions (If sedation given, give patient instructions): Acute Diarrhea (ED) Additional Instructions: Continue taking home medications as prescribed. BRAT diet (bananas, rice, applesauce, toast) until diarrhea improves, then advance diet. Follow-up with your surgeon as scheduled. Return to the emergency department with any new, worsening, or concerning symptoms. Is patient prescribed a controlled substance at d/c from ED?: No Referrals: Nik Paula MD [Primary Care Provider] - 1-2 days Time of Disposition: 23:53
[2022-10-31 22:06] VITALS: BP 124/77
[2022-10-31 22:32] LABS: Appearance,Urine Clear (Clear); Bilirubin,Urine Negative (Negative); Blood,Urine Negative (Negative); Color,Urine Yellow; Glucose,Urine (UA) Negative (Negative); Ketones,Urine Negative (Negative); Leukocyte Esterase,Urine Negative (Negative); Nitrite,Urine Negative (Negative); Protein,Urine Trace (Negative); Specific Gravity,Urine 1.032 (1.001-1.035)
[2022-10-31 23:01] VITALS: PULSE 96
[2022-10-31] MEDS ORDERED: ACET/COD 300 MG/30 MG STARTER PACK 6 TAB BTL PO STA (23:53)
== END 2022-11-01 00:03 | disposition home or self-care (01) ==
LOC: EC 19:34
DX: R10.9 Unspecified abdominal pain (principal); I25.10 Atherosclerotic heart disease of native coronary artery without angina pectoris; F41.9 Anxiety disorder, unspecified; F32.A Depression, unspecified; Z87.891 Personal history of nicotine dependence; Z20.822 Contact with and (suspected) exposure to COVID-19; Z91.030 Bee allergy status; Z88.6 Allergy status to analgesic agent
CPT/HCPCS: 36415; 80053; 82150; 83690; 85025; 81003; 87502; 87635; 99284; 96374; 96375; 96361; J2405; J1170

== ENCOUNTER 2022-11-03 20:26 | Emergency (ER) | payer OTHER, MEDICARE ==
[2022-11-03 20:36] VITALS: RESP 18
--- NOTE | 2022-11-03 22:24 | XR ---
EXAMINATION TYPE: XR ankle complete LT DATE OF EXAM: 11/03/2022 COMPARISON: NONE HISTORY: Ankle pain TECHNIQUE: 3 views FINDINGS: Ankle mortise is anatomic. I see no fracture nor dislocation. Joint spaces are normal. IMPRESSION: Negative left ankle exam. No fracture.
--- NOTE | 2022-11-03 23:25 | ED ---
General Adult HPI - General Chief complaint: Extremity Injury, Lower Stated complaint: slip and twisted left ankle Time Seen by Provider: 11/03/22 23:00 Source: patient, RN notes reviewed Mode of arrival: ambulatory Limitations: physical limitation - History of Present Illness Initial comments: 41-year-old male presents to the emergency department for evaluation of left ankle injury sustained this afternoon. Patient states he slipped on a puddle of water and twisted his ankle. He has had previous injuries to that ankle and was worried about dislocation. Did not take anything to treat his symptoms prior to arrival. Able to ambulate without difficulty. Also is concerned about drainage from surgical site incision. States he has been cleaning it daily and had bloody drainage on the dressing today. Taking the antibiotic he was prescribed. Complains of left lower quadrant abdominal pain. No fever, chills, nausea, or vomiting. - Related Data Home Medications Medication Instructions Recorded Confirmed PARoxetine HCL [Paxil] 60 mg PO DAILY 08/22/19 10/23/22 traZODone HCL 150 mg PO HS PRN 10/09/20 10/23/22 Gabapentin 600 mg PO TID 06/05/22 10/23/22 Prazosin HCl 6 mg PO HS 06/05/22 10/23/22 Acetaminophen Tab [Tylenol] 325 - 650 mg PO Q6H PRN 10/16/22 10/23/22 Aspirin EC [Ecotrin] 325 mg PO QID PRN 10/16/22 10/23/22 EPINEPHrine (Auto Inject) [Epipen] 0.3 mg IM ONCE PRN 10/16/22 10/23/22 Previous Rx's Medication Instructions Recorded Isosorbide Mononitrate ER [Imdur] 30 mg PO DAILY #30 tab 06/08/22 HYDROcodone/APAP 7.5-325MG [[place] 1 tab PO Q4H PRN 3 Days #18 tab 10/19/22 7.5-325] Metoprolol Tartrate [Lopressor] 12.5 mg PO BID tab 10/20/22 Amoxic-Pot Clav 875-125Mg 1 tab PO Q12HR 5 Days #10 tab 10/26/22 [Augmentin 875-125] Pantoprazole [Protonix] 40 mg PO AC-BID #60 tab 10/26/22 predniSONE 50 mg PO DAILY #5 tab 11/06/22 Allergies Allergy/AdvReac Type Severity Reaction Status Date / Time ketorolac tromethamine Allergy Rash/Hives/Swelling Verified 10/31/22 19:38 [From Toradol] at injection site venom-honey bee Allergy Anaphylaxis Verified 10/31/22 19:38 [bee venom (honey bee)] naproxen AdvReac Nausea & Verified 10/31/22 19:38 Vomiting & Diarrhea Review of Systems ROS Statement: Those systems with pertinent positive or pertinent negative responses have been documented in the HPI. ROS Other: All systems not noted in ROS Statement are negative. Past Medical History Past Medical History: Coronary Artery Disease (CAD) Additional Past Medical History / Comment(s): chronic knee pain, back pain, RBBB, elevated heart rate. History of Any Multi-Drug Resistant Organisms: MRSA Date of last positivie culture/infection: 2008 MDRO Source:: thumb Past Surgical History: Appendectomy, Back Surgery, Cholecystectomy, Orthopedic Surgery Additional Past Surgical History / Comment(s): l4-5 fusion march 2020,l4-s1 fusion in 12/2021, carpel tunnnel release, vascectomy, skin graft knee surg x4, right hip surgery. lower bowel surgery, cholecystectomy 10/2022 Past Anesthesia/Blood Transfusion Reactions: No Reported Reaction Past Psychological History: Anxiety, Depression, PTSD Smoking Status: Former smoker Past Alcohol Use History: Occasional Past Drug Use History: None Reported - Past Family History Father Family Medical History: No Reported History Additional Family Medical History / Comment(s): Father is alive at age 61 was no major medical problems. Mother Family Medical History: No Reported History Additional Family Medical History / Comment(s): Mother is alive at age 56 with history of spinal surgeries and neurological disorders. one sister with no major medical problems. Patient has 1 son and 1 daughter with no major medical problems. General Exam Limitations: no limitations General appearance: alert, in no apparent distress, other (Well-developed, well- nourished male in no acute distress.) Eye exam: Present: normal appearance. Absent: scleral icterus, conjunctival injection ENT exam: Present: normal exam, normal oropharynx, mucous membranes moist Respiratory exam: Present: normal lung sounds bilaterally. Absent: respiratory distress, wheezes, rales, rhonchi, stridor Cardiovascular Exam: Present: regular rate, normal rhythm, normal heart sounds. Absent: systolic murmur, diastolic murmur, rubs, gallop, clicks GI/Abdominal exam: Present: soft, guarding (Vague pain left lower quadrant- pain is not worsened with palpation), normal bowel sounds, other (incision site with minimal redness; small area of white drainage around gregory at umbilicus. surrounding tissue soft.). Absent: distended, tenderness, rebound, rigid Left Lower Leg exam: Present: normal inspection, full ROM Ankle exam: Present: normal inspection (h/o skin graft in affected area), full ROM, tenderness (mild tenderness around left lateral malleolus; no other abnormal findings). Absent: swelling Neurovascular tendon exam: Present: no vascular compromise Neurological exam: Present: alert, oriented X3 Psychiatric exam: Present: normal affect, normal mood Course Vital Signs 11/03/22 11/04/22 20:31 00:17 Temperature 97.4 F L 98.0 F Pulse Rate 92 71 Respiratory 18 18 Rate Blood Pressure 137/85 116/72 O2 Sat by Pulse 96 95 Oximetry - Reevaluation(s) Reevaluation #1: 11/04/22 00:00 Fernando wrap applied to left ankle. Gentle cleansing around surgical incision; non- erythematous. Medical Decision Making - Medical Decision Making This is a 41-year-old male with recent abdominal surgery to this emergency department presenting with complaints of left ankle pain and incision site recheck. Upon exam, patient is well-appearing and in no acute distress. Physical exam findings are unremarkable. Incision site appears to be intact with minimal erythema. There is a tiny area of whitish drainage around the umbilicus. No swelling, erythema, or edema to the left ankle. Neurovascular status intact. X-ray was obtained and was negative. Patient will be discharged to follow-up with his surgeon. Return parameters discussed in detail. Patient verbalizes understanding and agrees with this plan. Attending:Mauro Was pt. sent in by a medical professional or institution? @ -No Did you speak to anyone other than the patient for history? @ -No Did you review nursing and triage notes? @ -Yes, agree Were old charts reviewed? @ -Yes Differential Diagnosis? @ -Left ankle sprain, left ankle contusion, chronic pain, this is not meant to be an exhaustive list EKG interpreted by me (3pts min.)? @ -Not applicable X-rays interpreted by me (1pt min.)? @ -X-ray of the left ankle as interpreted by me shows no acute osseous deformity CT interpreted by me (1pt min.)? @ -Not applicable U/S interpreted by me (1pt. min.)? @ -Not applicable What testing was considered but not performed? (CT, X-rays, U/S, labs)? Why? @CT of the abdomen and pelvis was considered, however patient had minimal discomfort and no acute findings. What meds were considered but not given? Why? @ -None Did you discuss the management of the patient with other professionals? @ -None Did you reconcile home meds? @ -No Was smoking cessation discussed for >3mins.? @ -No Was critical care preformed (if so, how long)? @ -No Were there social determinants of health that impacted care today? How? (Homelessness, low income, unemployed, alcoholism, drug addiction, transportation, low edu. Level, literacy, decrease access to med. care, senior living, rehab)? @ -No Was there de-escalation of care discussed even if they declined? (Discuss DNR or withdrawal of care, Hospice)? @ -No What co-morbidities impacted this encounter? (DM, HTN, Smoking, COPD, CAD, Cancer, CVA, Hep., AIDS, mental health diagnosis, sleep apnea, morbid obesity)? @ -Recent abdominal surgery Was patient admitted / discharged? @ -Discharged Undiagnosed new problem with uncertain prognosis? @ -None Drug Therapy requiring intensive monitoring for toxicity (Heparin, Nitro, Insulin, Cardizem)? @ -None Were any procedures done? @ -None Diagnosis/symptom? @ -Left ankle sprain Acute, or Chronic, or Acute on Chronic? @ -Acute Uncomplicated (without systemic symptoms) or Complicated (systemic symptoms)? @ -Uncomplicated Side effects of treatment? @ -None Exacerbation, Progression, or Severe Exacerbation] @ -No Poses a threat to life or bodily function? @ -No Diagnosis/symptom? @ -Incision site pain Acute, or Chronic, or Acute on Chronic? @ -Acute Uncomplicated (without systemic symptoms) or Complicated (systemic symptoms)? @ -Uncomplicated Side effects of treatment? @ -None Exacerbation, Progression, or Severe Exacerbation] @ -No Poses a threat to life or bodily function? @ -No - Radiology Data Radiology results: report reviewed, image reviewed Interpreted by me: X-ray as interpreted by me shows no evidence of acute osseous abnormality or deformity. X-ray of the left ankle was obtained. Report was reviewed in its entirety. Impression per Dr. Colon is negative left ankle exam. No fracture. Disposition Clinical Impression: Left ankle injury, Pain at surgical incision Disposition: HOME SELF-CARE Condition: Stable Instructions (If sedation given, give patient instructions): Ankle Sprain (ED), Staple Care (ED) Additional Instructions: For your ankle: RICE (rest affected extremity; ice for no more than 20 minutes per hour; compression= Fernando wrap; elevated affected extremity while at rest). For your surgical incision care: You discharge instructions included a follow up appointment with Dr. Lyons today; please do not miss your appointment. Continue wound care and dressing changes as were included in your discharge papers. Return to the emergency department with any new, worsening, or concerning symptoms. Is patient prescribed a controlled substance at d/c from ED?: No Referrals: Nik Paula MD [Primary Care Provider] - 1-2 days Yoli Lyons DO [Doctor of Osteopathic Medicine] - 1-2 days Time of Disposition: 00:00
[2022-11-04 00:18] VITALS: BP 116/72; PULSE 71; TEMP 98
== END 2022-11-04 00:17 | disposition home or self-care (01) ==
LOC: EC 20:26
DX: S99.912A Unspecified injury of left ankle, initial encounter (principal); T81.89XA Other complications of procedures, not elsewhere classified, initial encounter; I25.10 Atherosclerotic heart disease of native coronary artery without angina pectoris; F41.9 Anxiety disorder, unspecified; F32.A Depression, unspecified; Z79.52 Long term (current) use of systemic steroids; Z88.6 Allergy status to analgesic agent; Z91.030 Bee allergy status; Z87.891 Personal history of nicotine dependence; X50.1XXA Overexertion from prolonged static or awkward postures, initial encounter
CPT/HCPCS: 99283

== ENCOUNTER 2022-11-05 21:47 | Emergency (ER) | payer OTHER, MEDICARE ==
[2022-11-06] MEDS ORDERED: ONDANSETRON 4 MG/2 ML VIAL IVP STA (06:35)
[2022-11-06] MEDS ORDERED: HYDROmorphone 0.5 MG/0.5 ML SYRINGE IVP STA (06:35)
--- NOTE | 2022-11-06 06:52 | XR ---
EXAMINATION TYPE: XR lumbar spine 2 or 3V DATE OF EXAM: 11/06/2022 CLINICAL HISTORY: Low back pain. TECHNIQUE: Frontal and lateral images of the lumbar spine are obtained. 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 There is persistent interpedicular rods and screws transfixing L4-S1 levels bilaterally. There is metallic disc material L4-L5 level again s een. Slight grade 1 anterolisthesis L4 on L5 is redemonstrated. Vertebral body heights and disc space heights above the L4 level remain stable and satisfactory. Overlying Cholecystectomy clips are redem onstrated. IMPRESSION: As above. No significant change from most recent x-ray. No acute findings are evident.
--- NOTE | 2022-11-06 07:01 | ED ---
Extremity Problem HPI - General Chief complaint: Extremity Problem,Nontraumatic Stated complaint: Leg pain Time Seen by Provider: 11/06/22 06:17 Source: patient, RN notes reviewed Mode of arrival: ambulatory Limitations: no limitations - History of Present Illness Initial comments: 41-year-old male presents emergency Department chief complaint leg pain. Patient states that he has a history of back fusion. Patient states that he started having pain rating down his legs again. Denies any bowel or bladder incontinence or retention or saddle anesthesias. Patient states he's had recent abdominal surgery twice in which he had cholecystectomy and headache complications from the surgery. Patient has exploratory laparotomy patient denies any fevers or chills no dysuria no hematuria patient offers no other complaints. - Related Data Home Medications Medication Instructions Recorded Confirmed PARoxetine HCL [Paxil] 60 mg PO DAILY 08/22/19 10/23/22 traZODone HCL 150 mg PO HS PRN 10/09/20 10/23/22 Gabapentin 600 mg PO TID 06/05/22 10/23/22 Prazosin HCl 6 mg PO HS 06/05/22 10/23/22 Acetaminophen Tab [Tylenol] 325 - 650 mg PO Q6H PRN 10/16/22 10/23/22 Aspirin EC [Ecotrin] 325 mg PO QID PRN 10/16/22 10/23/22 EPINEPHrine (Auto Inject) [Epipen] 0.3 mg IM ONCE PRN 10/16/22 10/23/22 Previous Rx's Medication Instructions Recorded Isosorbide Mononitrate ER [Imdur] 30 mg PO DAILY #30 tab 06/08/22 HYDROcodone/APAP 7.5-325MG [[place] 1 tab PO Q4H PRN 3 Days #18 tab 10/19/22 7.5-325] Metoprolol Tartrate [Lopressor] 12.5 mg PO BID tab 10/20/22 Amoxic-Pot Clav 875-125Mg 1 tab PO Q12HR 5 Days #10 tab 10/26/22 [Augmentin 875-125] Pantoprazole [Protonix] 40 mg PO AC-BID #60 tab 10/26/22 predniSONE 50 mg PO DAILY #5 tab 11/06/22 Allergies Allergy/AdvReac Type Severity Reaction Status Date / Time ketorolac tromethamine Allergy Rash/Hives/Swelling Verified 10/31/22 19:38 [From Toradol] at injection site venom-honey bee Allergy Anaphylaxis Verified 10/31/22 19:38 [bee venom (honey bee)] naproxen AdvReac Nausea & Verified 10/31/22 19:38 Vomiting & Diarrhea Review of Systems ROS Statement: Those systems with pertinent positive or pertinent negative responses have been documented in the HPI. ROS Other: All systems not noted in ROS Statement are negative. Past Medical History Past Medical History: Coronary Artery Disease (CAD) Additional Past Medical History / Comment(s): chronic knee pain, back pain, RBBB, elevated heart rate. History of Any Multi-Drug Resistant Organisms: MRSA Date of last positivie culture/infection: 2008 MDRO Source:: thumb Past Surgical History: Appendectomy, Back Surgery, Cholecystectomy, Orthopedic Surgery Additional Past Surgical History / Comment(s): l4-5 fusion march 2020,l4-s1 fusion in 12/2021, carpel tunnnel release, vascectomy, skin graft knee surg x4, right hip surgery. lower bowel surgery, cholecystectomy 10/2022 Past Anesthesia/Blood Transfusion Reactions: No Reported Reaction Past Psychological History: Anxiety, Depression, PTSD Smoking Status: Former smoker Past Alcohol Use History: Occasional Past Drug Use History: None Reported - Past Family History Father Family Medical History: No Reported History Additional Family Medical History / Comment(s): Father is alive at age 61 was no major medical problems. Mother Family Medical History: No Reported History Additional Family Medical History / Comment(s): Mother is alive at age 56 with history of spinal surgeries and neurological disorders. one sister with no major medical problems. Patient has 1 son and 1 daughter with no major medical problems. General Exam Limitations: no limitations General appearance: alert, in no apparent distress Head exam: Present: atraumatic, normocephalic, normal inspection Eye exam: Present: normal appearance, PERRL, EOMI. Absent: scleral icterus, conjunctival injection, periorbital swelling ENT exam: Present: normal exam, mucous membranes moist Neck exam: Present: normal inspection, full ROM. Absent: tenderness, meningismus, lymphadenopathy Respiratory exam: Present: normal lung sounds bilaterally. Absent: respiratory distress, wheezes, rales, rhonchi, stridor Cardiovascular Exam: Present: regular rate, normal rhythm, normal heart sounds. Absent: systolic murmur, diastolic murmur, rubs, gallop, clicks GI/Abdominal exam: Present: soft, normal bowel sounds, other (Recent surgical scar, healing, small opening in the periumbilical region). Absent: distended, tenderness, guarding, rebound, rigid Back exam: Absent: CVA tenderness (R), CVA tenderness (L) Neurological exam: Present: alert Skin exam: Present: warm, dry, intact, normal color. Absent: rash Course Vital Signs 11/05/22 11/06/22 22:17 07:16 Temperature 9737 F H 97.7 F Pulse Rate 79 Respiratory 16 Rate Blood Pressure 150/70 O2 Sat by Pulse 97 Oximetry Medical Decision Making - Medical Decision Making 41-year-old presented for radicular symptoms. Patient no acute changes an x-ray labs unremarkable. Patient will be discharged with close follow-up Was pt. sent in by a medical professional or institution (, PA, UNIT CONTROL CLERK, urgent care, hospital, or correction...) When possible be specific @ -No Did you speak to anyone other than the patient for history (EMS, parent, family, police, friend...)? What history was obtained from this source @ -No Did you review nursing and triage notes (agree or disagree)? Why? @ -I reviewed and agree with nursing and triage notes Were old charts reviewed (outside hosp., previous admission, EMS record, old EKG, old radiological studies, urgent care reports/EKG's, correction records)? Report findings @ -No old charts were reviewed Differential Diagnosis (chest pain, altered mental status, abdominal pain women, abdominal pain men, vaginal bleeding, weakness, fever, dyspnea, syncope, headache, dizziness, GI bleed, back pain, seizure, CVA, palpatations, mental health)? @ -not applicable EKG interpreted by me (3pts min.). @ -As above X-rays interpreted by me (1pt min.). @ -X-ray lumbar spine shows postsurgical changes, no acute changes otherwise CT interpreted by me (1pt min.). @ -None done U/S interpreted by me (1pt. min.). @ -None done What testing was considered but not performed or refused? (CT, X-rays, U/S, labs)? Why? @ -None What meds were considered but not given or refused? Why? @ -None Did you discuss the management of the patient with other professionals (professionals i.e. , PA, UNIT CONTROL CLERK, lab, RT, psych nurse, manager social, restaurant kitchen and service manager, teacher, aircraft electronics technical officer, block and case maker)? Give summary @ -No Was smoking cessation discussed for >3mins.? @ -No Was critical care preformed (if so, how long)? @ -No Were there social determinants of health that impacted care today? How? (Homele ssness, low income, unemployed, alcoholism, drug addiction, transportation, low edu. Level, literacy, decrease access to med. care, prison, rehab)? @ -No Was there de-escalation of care discussed even if they declined (Discuss DNR or withdrawal of care, Hospice)? DNR status @ -No What co-morbidities impacted this encounter? (DM, HTN, Smoking, COPD, CAD, Cancer, CVA, ARF, Chemo, Hep., AIDS, mental health diagnosis, sleep apnea, morbid obesity)? @ -None Was patient admitted / discharged? Hospital course, mention meds given and route, prescriptions, significant lab abnormalities, going to OR and other pertinent info. @ -Discharged Undiagnosed new problem with uncertain prognosis? @ -No Drug Therapy requiring intensive monitoring for toxicity (Heparin, Nitro, Insulin, Cardizem)? @ -No Were any procedures done? @ -No Diagnosis/symptom? @ -Lumbar radiculopathy Acute, or Chronic, or Acute on Chronic? @ -Acute Uncomplicated (without systemic symptoms) or Complicated (systemic symptoms)? @ Uncomplicated Side effects of treatment? @ -No Exacerbation, Progression, or Severe Exacerbation? @ -No Poses a threat to life or bodily function? How? (Chest pain, [place], [place], pneumonia, PE, COPD, DKA, ARF, appy, cholecystitis, CVA, Diverticulitis, Homicidal, Suicidal, threat to staff... and all critical care pts) @ -No - Lab Data Result diagrams: 11/06/22 07:16 11/06/22 07:16 Lab Results 11/06/22 11/06/22 Range/Units 07:16 07:16 WBC 7.2 (3.8-10.6) k/uL RBC 4.84 (4.30-5.90) m/uL Hgb 15.2 (13.0-17.5) gm/dL Hct 42.2 (39.0-53.0) % MCV 87.2 (80.0-100.0) fL MCH 31.3 (25.0-35.0) pg MCHC 36.0 (31.0-37.0) g/dL RDW 13.0 (11.5-15.5) % Plt Count 253 (150-450) k/uL MPV 8.7 Neutrophils % 37 % Lymphocytes % 45 % Monocytes % 5 % Eosinophils % 8 % Basophils % 2 % Neutrophils # 2.7 (1.3-7.7) k/uL Lymphocytes # 3.3 (1.0-4.8) k/uL Monocytes # 0.4 (0-1.0) k/uL Eosinophils # 0.6 (0-0.7) k/uL Basophils # 0.2 (0-0.2) k/uL Sodium 139 (137-145) mmol/L Potassium 4.3 (3.5-5.1) mmol/L Chloride 105 (98-107) mmol/L Carbon Dioxide 24 (22-30) mmol/L Anion Gap 10 mmol/L BUN 26 H (9-20) mg/dL Creatinine 0.94 (0.66-1.25) mg/dL Est GFR (CKD-EPI)AfAm >90 (>60 ml/min/1.73 sqM) Est GFR (CKD-EPI)NonAf >90 (>60 ml/min/1.73 sqM) Glucose 98 (74-99) mg/dL Calcium 9.6 (8.4-10.2) mg/dL Total Bilirubin 0.4 (0.2-1.3) mg/dL AST 21 (17-59) U/L ALT 41 (4-49) U/L Alkaline Phosphatase 58 (38-126) U/L Total Protein 7.4 (6.3-8.2) g/dL Albumin 4.6 (3.5-5.0) g/dL Disposition Clinical Impression: Lumbar radiculopathy, acute Disposition: HOME SELF-CARE Condition: Stable Instructions (If sedation given, give patient instructions): Lumbar Radiculopathy (ED) Additional Instructions: Please return to the Emergency Department if symptoms worsen or any other concerns. Prescriptions: predniSONE 50 mg PO DAILY #5 tab Is patient prescribed a controlled substance at d/c from ED?: No Referrals: Nik Paula MD [Primary Care Provider] - 1-2 days Time of Disposition: 08:10
[2022-11-06 07:49] LABS: Basophils # (A) 0.2 k/uL (0-0.2); Basophils % (A) 2 %; Eosinophils # (A) 0.6 k/uL (0-0.7); Eosinophils % (A) 8 %; HCT 42.2 % (39.0-53.0); HGB 15.2 gm/dL (13.0-17.5); Lymphocytes # (A) 3.3 k/uL (1.0-4.8); Lymphocytes % (A) 45 %; MCH 31.3 pg (25.0-35.0); MCV 87.2 fL (80.0-100.0); Mean Platelet Volume 8.7; Monocytes # (A) 0.4 k/uL (0-1.0); Monocytes % (A) 5 %; Neutrophils # (A) 2.7 k/uL (1.3-7.7); Neutrophils % (A) 37 %; Platelet Count 253 k/uL (150-450); RBC 4.84 m/uL (4.30-5.90); WBC 7.2 k/uL (3.8-10.6)
[2022-11-06 08:04] LABS: ALT 41 U/L (4-49); AST 21 U/L (17-59); African American GFR (CKD) >90 (>60 ml/min/1.73 sqM); Albumin 4.6 g/dL (3.5-5.0); Alkaline Phosphatase 58 U/L (38-126); Anion Gap 10 mmol/L; Blood Urea Nitrogen 26 mg/dL (9-20); Calcium 9.6 mg/dL (8.4-10.2); Carbon Dioxide 24 mmol/L (22-30); Chloride 105 mmol/L (98-107); Glucose 98 mg/dL (74-99); Non-African American GFR(CKD) >90 (>60 ml/min/1.73 sqM); Potassium 4.3 mmol/L (3.5-5.1); Sodium 139 mmol/L (137-145); Total Bilirubin 0.4 mg/dL (0.2-1.3); Total Protein 7.4 g/dL (6.3-8.2)
[2022-11-06 08:34] VITALS: BP 130/83; PULSE 81; RESP 19; TEMP 97.4
== END 2022-11-06 08:34 | disposition home or self-care (01) ==
LOC: EC 21:47
DX: M54.16 Radiculopathy, lumbar region (principal); I25.10 Atherosclerotic heart disease of native coronary artery without angina pectoris; F41.9 Anxiety disorder, unspecified; F32.A Depression, unspecified; Z87.891 Personal history of nicotine dependence; Z79.899 Other long term (current) drug therapy; Z91.030 Bee allergy status; Z88.6 Allergy status to analgesic agent
CPT/HCPCS: 36415; 80053; 85025; 72100; 99283; 96374; 96375; J2405; J1170

== ENCOUNTER 2022-11-08 23:19 | Emergency (ER) | payer OTHER, MEDICARE ==
[2022-11-08] MEDS ORDERED: ONDANSETRON 4 MG/2 ML VIAL IVP STA (23:54)
[2022-11-08] MEDS ORDERED: SODIUM CHLORIDE 0.9% 1,000 ML IV STA (23:54)
[2022-11-08] MEDS ORDERED: HYDROmorphone 0.5 MG/0.5 ML SYRINGE IVP STA (23:55)
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
[2022-11-09 00:30] LABS: Basophils # (A) 0.2 k/uL (0-0.2); Basophils % (A) 2 %; Eosinophils # (A) 0.6 k/uL (0-0.7); Eosinophils % (A) 7 %; HGB 15.3 gm/dL (13.0-17.5); Lymphocytes # (A) 3.2 k/uL (1.0-4.8); Lymphocytes % (A) 41 %; MCH 31.1 pg (25.0-35.0); MCHC 35.5 g/dL (31.0-37.0); MCV 87.6 fL (80.0-100.0); Mean Platelet Volume 8.5; Monocytes # (A) 0.4 k/uL (0-1.0); Monocytes % (A) 5 %; Neutrophils # (A) 3.4 k/uL (1.3-7.7); Neutrophils % (A) 43 %; Platelet Count 246 k/uL (150-450); RBC 4.91 m/uL (4.30-5.90); RDW 12.7 % (11.5-15.5); WBC 7.8 k/uL (3.8-10.6)
[2022-11-09 00:31] LABS: Appearance,Urine Clear (Clear); Bilirubin,Urine Negative (Negative); Blood,Urine Negative (Negative); Color,Urine Yellow; Glucose,Urine (UA) Negative (Negative); Ketones,Urine Negative (Negative); Leukocyte Esterase,Urine Negative (Negative); Mucus,Urine Few /hpf; Nitrite,Urine Negative (Negative); Protein,Urine 1+ (Negative); RBC,Urine 2 /hpf (0-5); Specific Gravity,Urine 1.026 (1.001-1.035)
[2022-11-09 00:40] LABS: Partial Thromboplastin Time 25.4 sec (22.0-30.0); Prothrombin Time 10.2 sec (9.0-12.0)
[2022-11-09 00:43] VITALS: RESP 16
[2022-11-09 00:53] LABS: ALT 37 U/L (4-49); African American GFR (CKD) >90 (>60 ml/min/1.73 sqM); Albumin 4.5 g/dL (3.5-5.0); Anion Gap 10 mmol/L; Blood Urea Nitrogen 17 mg/dL (9-20); Calcium 9.8 mg/dL (8.4-10.2); Carbon Dioxide 24 mmol/L (22-30); Chloride 106 mmol/L (98-107); Glucose 96 mg/dL (74-99); Non-African American GFR(CKD) >90 (>60 ml/min/1.73 sqM); Sodium 140 mmol/L (137-145); Total Bilirubin 0.6 mg/dL (0.2-1.3); Total Protein 7.3 g/dL (6.3-8.2)
[2022-11-09 00:54] LABS: AST 30 U/L (17-59); Alkaline Phosphatase 55 U/L (38-126); Potassium 4.3 mmol/L (3.5-5.1)
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
[2022-11-09] MEDS ORDERED: HYDROmorphone 0.5 MG/0.5 ML SYRINGE IVP STA (01:48)
[2022-11-09 02:42] VITALS: BP 129/77; PULSE 83
== END 2022-11-09 02:44 | disposition home or self-care (01) ==
LOC: EC 23:19
DX: R10.31 Right lower quadrant pain (principal); I25.10 Atherosclerotic heart disease of native coronary artery without angina pectoris; F41.9 Anxiety disorder, unspecified; F32.A Depression, unspecified; Z88.6 Allergy status to analgesic agent; Z88.8 Allergy status to other drugs, medicaments and biological substances; Z91.030 Bee allergy status; Z87.891 Personal history of nicotine dependence
CPT/HCPCS: 36415; 80053; 84484; 85025; 85610; 85730; 81001; 74176; 99285; 96374; 96375; 96376; 96361 ×2; J2405; J1170

== ENCOUNTER 2022-11-15 22:18 | Emergency (ER) | payer MEDICARE, OTHER ==
[2022-11-15 22:24] VITALS: TEMP 97.8
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
[2022-11-15] MEDS ORDERED: ONDANSETRON 4 MG TAB PO STA (23:03)
[2022-11-15] MEDS ORDERED: LORazepam 1 MG TAB PO STA (23:03)
[2022-11-16 00:44] VITALS: BP 138/79; PULSE 88; RESP 15
== END 2022-11-16 01:37 | disposition home or self-care (01) ==
LOC: EC 22:18
DX: F43.9 Reaction to severe stress, unspecified (principal); F41.9 Anxiety disorder, unspecified; I25.10 Atherosclerotic heart disease of native coronary artery without angina pectoris; F32.A Depression, unspecified; Z91.030 Bee allergy status; Z79.82 Long term (current) use of aspirin; Z88.6 Allergy status to analgesic agent; Z87.891 Personal history of nicotine dependence
CPT/HCPCS: 93005; 99284

== ENCOUNTER 2022-11-17 16:11 | Emergency (ER) | payer OTHER ==
[2022-11-17 16:20] VITALS: TEMP 98.2
[2022-11-17] MEDS ORDERED: HYDROmorphone 1 MG/ML 1 ML SYRINGE IVP STA ×2 (16:34→18:13)
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
[2022-11-17] MEDS ORDERED: GENTAMICIN 80 MG in SODIUM CHLORIDE 0.9% 100 ML IVPB ONE (17:22)
[2022-11-17] MEDS ORDERED: ceFAZolin 3 GM in SODIUM CHLORIDE 0.9% 100 ML IVPB ONE (17:45)
[2022-11-17] MEDS ORDERED: GENTAMICIN 500 MG in SODIUM CHLORIDE 0.9% 100 ML IVPB ONE (17:45)
[2022-11-17] MEDS ORDERED: GENTAMICIN 80 MG/2 ML (MDV) VIAL ONE (18:36)
[2022-11-17] MEDS ORDERED: SODIUM CHLORIDE 0.9% 100 ML BAG ONE (18:36)
[2022-11-17 18:39] VITALS: PULSE 82; RESP 17
[2022-11-17 18:51] VITALS: BP 124/86
== END 2022-11-17 18:37 | disposition other institution (70) ==
LOC: EC 16:11
DX: S92.322B Displaced fracture of second metatarsal bone, left foot, initial encounter for open fracture (principal); S92.332B Displaced fracture of third metatarsal bone, left foot, initial encounter for open fracture; I25.10 Atherosclerotic heart disease of native coronary artery without angina pectoris; F41.9 Anxiety disorder, unspecified; F32.A Depression, unspecified; Z87.891 Personal history of nicotine dependence; Z88.6 Allergy status to analgesic agent; Z91.030 Bee allergy status; Z79.82 Long term (current) use of aspirin; Z79.899 Other long term (current) drug therapy; W34.00XA Accidental discharge from unspecified firearms or gun, initial encounter
CPT/HCPCS: 73630; 99285; 96365; 96375 ×2; 96376; 29515; J1580; J0690; J1170

== ENCOUNTER 2022-11-21 22:13 | Emergency (ER) | payer OTHER ==
[2022-11-21] MEDS ORDERED: MORPHINE SULFATE 2 MG/ML SYRINGE IM STA (22:33)
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
[2022-11-21] MEDS ORDERED: HYDROmorphone 1 MG/ML 1 ML SYRINGE IM STA (23:33)
[2022-11-21] MEDS ORDERED: ONDANSETRON ODT 4 MG TAB PO STA (23:33)
[2022-11-22] MEDS ORDERED: HYDROmorphone 1 MG/ML 1 ML SYRINGE IM STA (01:16)
[2022-11-22 01:23] VITALS: BP 126/74; PULSE 72; RESP 16; TEMP 98.4
== END 2022-11-22 01:41 | disposition home or self-care (01) ==
LOC: EC 22:13
DX: S99.922A Unspecified injury of left foot, initial encounter (principal); I25.10 Atherosclerotic heart disease of native coronary artery without angina pectoris; F41.9 Anxiety disorder, unspecified; F32.A Depression, unspecified; Z87.891 Personal history of nicotine dependence; Z79.82 Long term (current) use of aspirin; Z88.6 Allergy status to analgesic agent; Z91.030 Bee allergy status; W23.0XXA Caught, crushed, jammed, or pinched between moving objects, initial encounter; Y93.01 Activity, walking, marching and hiking
CPT/HCPCS: 73630; 99284; 96372 ×3; J2270; J1170 ×2

== ENCOUNTER 2022-11-24 16:45 | Emergency (ER) | payer MEDICARE, OTHER ==
[2022-11-24 16:58] VITALS: TEMP 98
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
[2022-11-24 18:01] LABS: Basophils % (A) 1 %; Eosinophils # (A) 0.2 k/uL (0-0.7); Eosinophils % (A) 5 %; HCT 41.2 % (39.0-53.0); HGB 14.3 gm/dL (13.0-17.5); Lymphocytes # (A) 2.1 k/uL (1.0-4.8); Lymphocytes % (A) 41 %; MCH 30.4 pg (25.0-35.0); MCHC 34.7 g/dL (31.0-37.0); MCV 87.4 fL (80.0-100.0); Mean Platelet Volume 7.4; Monocytes # (A) 0.4 k/uL (0-1.0); Monocytes % (A) 7 %; Neutrophils # (A) 2.3 k/uL (1.3-7.7); Neutrophils % (A) 44 %; Platelet Count 250 k/uL (150-450); RBC 4.71 m/uL (4.30-5.90); RDW 12.6 % (11.5-15.5); WBC 5.2 k/uL (3.8-10.6)
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
[2022-11-24 18:08] LABS: African American GFR (CKD) >90 (>60 ml/min/1.73 sqM); Anion Gap 6 mmol/L; Blood Urea Nitrogen 17 mg/dL (9-20); Calcium 9.2 mg/dL (8.4-10.2); Carbon Dioxide 25 mmol/L (22-30); Chloride 106 mmol/L (98-107); Glucose 115 mg/dL (74-99); Non-African American GFR(CKD) >90 (>60 ml/min/1.73 sqM); Potassium 4.3 mmol/L (3.5-5.1); Sodium 137 mmol/L (137-145)
[2022-11-24] MEDS ORDERED: HYDROmorphone 1 MG/ML 1 ML SYRINGE IVP STA (18:40)
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
[2022-11-24 18:52] VITALS: BP 130/67; PULSE 80; RESP 18
== END 2022-11-24 18:52 | disposition home or self-care (01) ==
LOC: EC 16:45
DX: S92.302A Fracture of unspecified metatarsal bone(s), left foot, initial encounter for closed fracture (principal); I25.10 Atherosclerotic heart disease of native coronary artery without angina pectoris; F41.9 Anxiety disorder, unspecified; F32.A Depression, unspecified; Z87.891 Personal history of nicotine dependence; Z88.6 Allergy status to analgesic agent; Z88.8 Allergy status to other drugs, medicaments and biological substances; Z79.82 Long term (current) use of aspirin; Z79.899 Other long term (current) drug therapy; W34.00XA Accidental discharge from unspecified firearms or gun, initial encounter
CPT/HCPCS: 36415; 80048; 85025; 87040; 87070; 87205; 73630; 99283; 96374; J1170

== ENCOUNTER 2023-01-18 22:30 | Emergency (ER) | payer OTHER, MEDICARE ==
[2023-01-18 22:42] VITALS: RESP 18
--- NOTE | 2023-01-18 23:22 | ED ---
General Adult HPI - General Chief complaint: Headache Stated complaint: migraine Time Seen by Provider: 01/18/23 22:55 Source: patient, RN notes reviewed Mode of arrival: ambulatory Limitations: no limitations - History of Present Illness Initial comments: This a 42-year-old male presents emergency from chief complaint of headache. Patient states his chronic headaches describes as a migraine headache at this time denies any trauma. Patient states she is on blood thinner again denies any head injury states this was not sudden onset this is been on and off headache this is not the worse headache of his life. Patient has no focal complaints denies any visual disturbance he states that he just knows that [id number] medications aren't helping. - Related Data Home Medications Medication Instructions Recorded Confirmed PARoxetine HCL [Paxil] 30 mg PO DAILY 08/22/19 12/09/22 traZODone HCL 150 mg PO HS 10/09/20 12/09/22 Gabapentin 600 mg PO TID 06/05/22 12/09/22 Prazosin HCl 6 mg PO HS 06/05/22 12/09/22 Acetaminophen Tab [Tylenol] 325 - 650 mg PO Q6H PRN 10/16/22 12/09/22 EPINEPHrine (Auto Inject) [Epipen] 0.3 mg IM ONCE PRN 10/16/22 12/09/22 Metoprolol Tartrate [Lopressor] 12.5 mg PO DAILY 12/09/22 12/09/22 Pantoprazole [Protonix] 40 mg PO AC-BID PRN 12/09/22 12/09/22 ceFAZolin SODIUM [Cefazolin Sodium] 2 gm IV Q6HR 12/09/22 12/09/22 Previous Rx's Medication Instructions Recorded Isosorbide Mononitrate ER [Imdur] 30 mg PO DAILY #30 tab 06/08/22 HYDROcodone/APAP 7.5-325MG [[place] 1 each PO Q6HR PRN #9 tab 12/04/22 7.5-325] Triamcinolone 0.1% Cream [Kenalog 1 applic TOPICAL BID 7 Days #1 each 12/04/22 0.1% Cream] Apixaban [Eliquis Starter Pack 5 - 10 mg PO DIRECTED 30 Days 12/10/22 (for VTE)] #1 each Cephalexin [Keflex] 500 mg PO Q6HR 14 Days #56 cap 12/19/22 Allergies Allergy/AdvReac Type Severity Reaction Status Date / Time ketorolac tromethamine Allergy Rash/Hives/Swelling Verified 01/18/23 22:42 [From Toradol] at injection site venom-honey bee Allergy Anaphylaxis Verified 01/18/23 22:42 [bee venom (honey bee)] naproxen AdvReac Nausea & Verified 01/18/23 22:42 Vomiting & Diarrhea Review of Systems ROS Statement: Those systems with pertinent positive or pertinent negative responses have been documented in the HPI. ROS Other: All systems not noted in ROS Statement are negative. Past Medical History Past Medical History: Coronary Artery Disease (CAD) Additional Past Medical History / Comment(s): chronic knee pain, back pain, RBBB, elevated heart rate. History of Any Multi-Drug Resistant Organisms: MRSA Date of last positivie culture/infection: 2008 MDRO Source:: thumb Past Surgical History: Appendectomy, Back Surgery, Cholecystectomy, Orthopedic Surgery Additional Past Surgical History / Comment(s): l4-5 fusion march 2020,l4-s1 fusion in 12/2021, carpel tunnnel release, vascectomy, skin graft knee surg x4, right hip surgery. lower bowel surgery, cholecystectomy 10/2022 Past Anesthesia/Blood Transfusion Reactions: No Reported Reaction Past Psychological History: Anxiety, Depression, PTSD Smoking Status: Former smoker Past Alcohol Use History: Occasional Past Drug Use History: None Reported - Past Family History Father Family Medical History: No Reported History Additional Family Medical History / Comment(s): Father is alive at age 61 was no major medical problems. Mother Family Medical History: No Reported History Additional Family Medical History / Comment(s): Mother is alive at age 56 with history of spinal surgeries and neurological disorders. one sister with no major medical problems. Patient has 1 son and 1 daughter with no major medical problems. General Exam Limitations: no limitations General appearance: alert, in no apparent distress Head exam: Present: atraumatic, normocephalic, normal inspection Eye exam: Present: normal appearance, PERRL, EOMI. Absent: scleral icterus, conjunctival injection, periorbital swelling ENT exam: Present: normal exam, normal oropharynx, mucous membranes moist, TM's normal bilaterally Neck exam: Present: normal inspection, full ROM. Absent: tenderness, meningismus, lymphadenopathy Respiratory exam: Present: normal lung sounds bilaterally. Absent: respiratory distress, wheezes, rales, rhonchi, stridor Cardiovascular Exam: Present: regular rate, normal rhythm, normal heart sounds. Absent: systolic murmur, diastolic murmur, rubs, gallop, clicks Extremities exam: Present: normal inspection, full ROM, normal capillary refill. Absent: tenderness, pedal edema, joint swelling, calf tenderness Neurological exam: Present: alert, oriented X3, CN II-XII intact, reflexes normal. Absent: motor sensory deficit Course Vital Signs 01/18/23 01/18/23 22:40 23:26 Temperature 97.9 F 98.0 F Pulse Rate 67 64 Respiratory 18 18 Rate Blood Pressure 149/95 136/89 O2 Sat by Pulse 98 99 Oximetry Medical Decision Making - Medical Decision Making Was pt. sent in by a medical professional or institution (, PA, IRON INSTALLER, urgent care, hospital, or longterm...) When possible be specific @ -No Did you speak to anyone other than the patient for history (EMS, parent, family, police, friend...)? What history was obtained from this source @ -No Did you review nursing and triage notes (agree or disagree)? Why? @ -I reviewed and agree with nursing and triage notes Were old charts reviewed (outside hosp., previous admission, EMS record, old EKG, old radiological studies, urgent care reports/EKG's, longterm records)? Report findings @ -No old charts were reviewed Differential Diagnosis (chest pain, altered mental status, abdominal pain women, abdominal pain men, vaginal bleeding, weakness, fever, dyspnea, syncope, headache, dizziness, GI bleed, back pain, seizure, CVA, palpatations, mental h ealth, musculoskeletal)? @ -Differential Headache: Migraine, tension, cluster, carbon monoxide, central venous thrombosis, pension karma temporal arteritis, acute closure glaucoma, intercranial hemorrhage, mastoiditis, sinusitis, head injury, this is not meant to be an all-inclusive list. EKG interpreted by me (3pts min.). @ -None X-rays interpreted by me (1pt min.). @ -None done CT interpreted by me (1pt min.). @ -None done U/S interpreted by me (1pt. min.). @ -None done What testing was considered but not performed or refused? (CT, X-rays, U/S, labs)? Why? @ -Consider labs, imaging considered though patient declined stating this is a chronic issue What meds were considered but not given or refused? Why? @ -None Did you discuss the management of the patient with other professionals (professionals i.e. , PA, IRON INSTALLER, lab, RT, psych nurse, clinical social work aide, scrub wheel operator, teacher, staff air defense officer, showcase trimmer)? Give summary @ -No Was smoking cessation discussed for >3mins.? @ -No Was critical care preformed (if so, how long)? @ -No Were there social determinants of health that impacted care today? How? (Homelessness, low income, unemployed, alcoholism, drug addiction, transportation, low edu. Level, literacy, decrease access to med. care, shelter, rehab)? @ -No Was there de-escalation of care discussed even if they declined (Discuss DNR or withdrawal of care, Hospice)? DNR status @ -No What co-morbidities impacted this encounter? (DM, HTN, Smoking, COPD, CAD, Cancer, CVA, ARF, Chemo, Hep., AIDS, mental health diagnosis, sleep apnea, morbid obesity)? @ -None Was patient admitted / discharged? Hospital course, mention meds given and route, prescriptions, significant lab abnormalities, going to OR and other pertinent info. @ -Discharge patient is neurologically intact normal vitals patient was discharged after treatment of his migraine return parameters were discussed. Undiagnosed new problem with uncertain prognosis? @ -No Drug Therapy requiring intensive monitoring for toxicity (Heparin, Nitro, Insulin, Cardizem)? @ -No Were any procedures done? @ -No Diagnosis/symptom? @ -Migraine Acute, or Chronic, or Acute on Chronic? @ -Acute Uncomplicated (without systemic symptoms) or Complicated (systemic symptoms)? @ -Uncomplicated Side effects of treatment? @ -No Exacerbation, Progression, or Severe Exacerbation? @ -No Poses a threat to life or bodily function? How? (Chest pain, USA, [place], pneumonia, PE, COPD, DKA, ARF, appy, cholecystitis, CVA, Diverticulitis, Homicidal, Suicidal, threat to staff... and all critical care pts) @ -No Disposition Clinical Impression: Migraine headache Disposition: HOME SELF-CARE Condition: Stable Instructions (If sedation given, give patient instructions): Migraine Headache (ED) Additional Instructions: Please return to the Emergency Department if symptoms worsen or any other concerns. Is patient prescribed a controlled substance at d/c from ED?: No Referrals: Nonstaff,Physician [Primary Care Provider] - 1-2 days Time of Disposition: 23:22
[2023-01-18 23:27] VITALS: BP 136/89; PULSE 64; TEMP 98
== END 2023-01-18 23:31 | disposition home or self-care (01) ==
LOC: EC 22:30
DX: G43.909 Migraine, unspecified, not intractable, without status migrainosus (principal); I25.10 Atherosclerotic heart disease of native coronary artery without angina pectoris; F41.9 Anxiety disorder, unspecified; F32.A Depression, unspecified; Z87.891 Personal history of nicotine dependence; Z88.6 Allergy status to analgesic agent; Z91.030 Bee allergy status; Z88.8 Allergy status to other drugs, medicaments and biological substances
CPT/HCPCS: 99283 ×2; 96372; J1790

== ENCOUNTER 2023-01-29 21:58 | Emergency (ER) | payer OTHER, MEDICARE ==
[2023-01-29 22:15] VITALS: TEMP 98
[2023-01-29] MEDS ORDERED: methylPREDNISolone SOD SUCCI 125 MG/2 ML VIAL IM ONE (23:10)
[2023-01-29] MEDS ORDERED: ORPHENADRINE 30 MG/ML 2 ML VIAL IM STA ×2 (23:11→23:27)
[2023-01-29] MEDS ORDERED: LIDOCAINE 5% PATCH TOPICAL STA (23:11)
[2023-01-29] MEDS ORDERED: CYCLOBENZAPRINE 10 MG TAB PO STA (23:12)
[2023-01-29] MEDS ORDERED: HYDROmorphone 0.5 MG/0.5 ML SYRINGE IM STA (23:12)
[2023-01-29] MEDS ORDERED: ACETAMINOPHEN TAB 500 MG TAB PO STA (23:27)
--- NOTE | 2023-01-30 00:40 | ED ---
General Adult HPI - General Chief complaint: Back Pain/Injury Stated complaint: Back Pain Time Seen by Provider: 01/29/23 23:00 Source: patient Mode of arrival: ambulatory Limitations: no limitations - History of Present Illness Initial comments: Patient is a 42-year-old male presents to the emergency department for back pain. Patient has history of chronic back pain he takes [place] for. He follows with medical reception specialist at [facility]. Patient states he was working on his car when his back gave out. He denies injury and fall. Patient has lower back pain with numbness and tingling down his left leg which he states is new. He denies saddle anesthesia, loss of bowel bladder function, leg weakness. No fever, chills, abdominal pain, nausea, vomiting, burning with urination, blood in the urine. - Related Data Home Medications Medication Instructions Recorded Confirmed PARoxetine HCL [Paxil] 30 mg PO DAILY 08/22/19 12/09/22 traZODone HCL 150 mg PO HS 10/09/20 12/09/22 Gabapentin 600 mg PO TID 06/05/22 12/09/22 Prazosin HCl 6 mg PO HS 06/05/22 12/09/22 Acetaminophen Tab [Tylenol] 325 - 650 mg PO Q6H PRN 10/16/22 12/09/22 EPINEPHrine (Auto Inject) [Epipen] 0.3 mg IM ONCE PRN 10/16/22 12/09/22 Metoprolol Tartrate [Lopressor] 12.5 mg PO DAILY 12/09/22 12/09/22 Pantoprazole [Protonix] 40 mg PO AC-BID PRN 12/09/22 12/09/22 ceFAZolin SODIUM [Cefazolin Sodium] 2 gm IV Q6HR 12/09/22 12/09/22 Previous Rx's Medication Instructions Recorded Isosorbide Mononitrate ER [Imdur] 30 mg PO DAILY #30 tab 06/08/22 HYDROcodone/APAP 7.5-325MG [[place] 1 each PO Q6HR PRN #9 tab 12/04/22 7.5-325] Triamcinolone 0.1% Cream [Kenalog 1 applic TOPICAL BID 7 Days #1 each 12/04/22 0.1% Cream] Apixaban [Eliquis Starter Pack 5 - 10 mg PO DIRECTED 30 Days 12/10/22 (for VTE)] #1 each Cephalexin [Keflex] 500 mg PO Q6HR 14 Days #56 cap 12/19/22 Cyclobenzaprine [Flexeril] 10 mg PO TID PRN #15 tab 01/30/23 Lidocaine 5% Patch [Lidoderm 5% 1 patch TOPICAL DAILY PRN #7 patch 01/30/23 Patch] predniSONE 50 mg PO DAILY #5 tab 01/30/23 Allergies Allergy/AdvReac Type Severity Reaction Status Date / Time ketorolac tromethamine Allergy Rash/Hives/Swelling Verified 01/18/23 22:42 [From Toradol] at injection site venom-honey bee Allergy Anaphylaxis Verified 01/18/23 22:42 [bee venom (honey bee)] naproxen AdvReac Nausea & Verified 01/18/23 22:42 Vomiting & Diarrhea Review of Systems ROS Statement: Those systems with pertinent positive or pertinent negative responses have been documented in the HPI. ROS Other: All systems not noted in ROS Statement are negative. Past Medical History Past Medical History: Coronary Artery Disease (CAD) Additional Past Medical History / Comment(s): chronic knee pain, back pain, RBBB, elevated heart rate. History of Any Multi-Drug Resistant Organisms: MRSA Date of last positivie culture/infection: 2008 MDRO Source:: thumb Past Surgical History: Appendectomy, Back Surgery, Cholecystectomy, Orthopedic Surgery Additional Past Surgical History / Comment(s): l4-5 fusion march 2020,l4-s1 fusion in 12/2021, carpel tunnnel release, vascectomy, skin graft knee surg x4, right hip surgery. lower bowel surgery, cholecystectomy 10/2022 Past Anesthesia/Blood Transfusion Reactions: No Reported Reaction Past Psychological History: Anxiety, Depression, PTSD Smoking Status: Former smoker Past Alcohol Use History: Occasional Past Drug Use History: None Reported - Past Family History Father Family Medical History: No Reported History Additional Family Medical History / Comment(s): Father is alive at age 61 was no major medical problems. Mother Family Medical History: No Reported History Additional Family Medical History / Comment(s): Mother is alive at age 56 with history of spinal surgeries and neurological disorders. one sister with no major medical problems. Patient has 1 son and 1 daughter with no major medical problems. General Exam Limitations: no limitations Eye exam: Present: normal appearance, PERRL, EOMI. Absent: scleral icterus, conjunctival injection, periorbital swelling Respiratory exam: Present: normal lung sounds bilaterally. Absent: respiratory distress, wheezes, rales, rhonchi, stridor Cardiovascular Exam: Present: regular rate, normal rhythm, normal heart sounds. Absent: systolic murmur, diastolic murmur, rubs, gallop, clicks Back exam: Present: paraspinal tenderness (lumbar). Absent: CVA tenderness (R), CVA tenderness (L), vertebral tenderness Neurological exam: Present: alert, oriented X3, CN II-XII intact Psychiatric exam: Present: normal affect, normal mood Course Vital Signs 01/29/23 01/30/23 22:12 01:04 Temperature 98 F 98 F Pulse Rate 89 82 Respiratory 16 20 Rate Blood Pressure 147/91 133/78 O2 Sat by Pulse 98 98 Oximetry Medical Decision Making - Medical Decision Making Was pt. sent in by a medical professional or institution (, PA, LIGHTING ENGINEERING TECHNICIAN, urgent care, hospital, or shelter...) When possible be specific @ -[No] Did you speak to anyone other than the patient for history (EMS, parent, family, police, friend...)? What history was obtained from this source @ -[No] Did you review nursing and triage notes (agree or disagree)? Why? @ -[I reviewed and agree with nursing and triage notes] Were old charts reviewed (outside hosp., previous admission, EMS record, old EKG, old radiological studies, urgent care reports/EKG's, shelter records)? Report findings @ -[No old charts were reviewed] Differential Diagnosis (chest pain, altered mental status, abdominal pain women, abdominal pain men, vaginal bleeding, weakness, fever, dyspnea, syncope, headache, dizziness, GI bleed, back pain, seizure, CVA, palpatations, mental health)? @ -Differential Back Pain: Strain, zoster, cauda equina syndrome, epidural abscess, vertebral osteomyelitis, discitis, fracture, subluxation, disc herniation, DJD, spinal stenosis, dissection, AAA, pancreatitis, peptic ulcer disease, pyelonephritis, kidney stone, this is not meant to be an all-inclusive list. EKG interpreted by me (3pts min.). @ -[As above] X-rays interpreted by me (1pt min.). @ -[None done] CT interpreted by me (1pt min.). @ -[None done] U/S interpreted by me (1pt. min.). @ -[None done] What testing was considered but not performed or refused? (CT, X-rays, U/S, labs)? Why? @ -Consider CT imaging however there is no vertebral tenderness. No injury. No symptoms or signs of cauda equina What meds were considered but not given or refused? Why? @ -[None] Did you discuss the management of the patient with other professionals (professionals i.e. , PA, LIGHTING ENGINEERING TECHNICIAN, lab, RT, psych nurse, oncology social worker, hydrogeology professor, teacher, ordnance officer, financial aid manager)? Give summary @ -[No] Was smoking cessation discussed for >3mins.? @ -[No] Was critical care preformed (if so, how long)? @ -[No] Were there social determinants of health that impacted care today? How? (Homelessness, low income, unemployed, alcoholism, drug addiction, transportation, low edu. Level, literacy, decrease access to med. care, retirement, rehab)? @ -[No] Was there de-escalation of care discussed even if they declined (Discuss DNR or withdrawal of care, Hospice)? DNR status @ -[No] What co-morbidities impacted this encounter? (DM, HTN, Smoking, COPD, CAD, Cancer, CVA, ARF, Chemo, Hep., AIDS, mental health diagnosis, sleep apnea, morbid obesity)? @ -[None] Was patient admitted / discharged? Hospital course, mention meds given and route, prescriptions, significant lab abnormalities, going to OR and other pertinent info. @ -Patient presenting with lumbar radiculopathy. No symptoms or signs of cauda equina. Patient treated in the emergency department with improvement of symptoms. He will be discharged with prednisone and pain control. He is instructed to follow up with this medical reception specialist. Undiagnosed new problem with uncertain prognosis? @ -[No] Drug Therapy requiring intensive monitoring for toxicity (Heparin, Nitro, Insulin, Cardizem)? @ -[No] Were any procedures done? @ -[No] Diagnosis/symptom? @ -[default] Acute, or Chronic, or Acute on Chronic? @ -[default] Uncomplicated (without systemic symptoms) or Complicated (systemic symptoms)? @ -[default] Side effects of treatment? @ -[No] Exacerbation, Progression, or Severe Exacerbation? @ -[No] Poses a threat to life or bodily function? How? (Chest pain, [place], [place], pneumonia, PE, COPD, DKA, ARF, appy, cholecystitis, CVA, Diverticulitis, Homicidal, Suicidal, threat to staff... and all critical care pts) @ -[No] Disposition Clinical Impression: Lumbar radiculopathy Disposition: HOME SELF-CARE Condition: Good Instructions (If sedation given, give patient instructions): Acute Low Back Pain (ED) Additional Instructions: Take medication as directed. Do not drink alcohol or operate machinery while taking Flexeril as it can make you sleepy. Follow up with medical reception specialist in1- 2 days. Return to emergency department if you experience new, concerning, or worsening symptoms. Prescriptions: Cyclobenzaprine [Flexeril] 10 mg PO TID PRN #15 tab PRN Reason: Muscle Spasm Lidocaine 5% Patch [Lidoderm 5% Patch] 1 patch TOPICAL DAILY PRN #7 patch PRN Reason: Pain predniSONE 50 mg PO DAILY #5 tab Is patient prescribed a controlled substance at d/c from ED?: No Referrals: Nonstaff,Physician [Primary Care Provider] - 1-2 days
[2023-01-30 01:05] VITALS: BP 133/78; PULSE 82; RESP 20
== END 2023-01-30 01:05 | disposition home or self-care (01) ==
LOC: EC 21:58
DX: M54.16 Radiculopathy, lumbar region (principal); I25.10 Atherosclerotic heart disease of native coronary artery without angina pectoris; F41.9 Anxiety disorder, unspecified; F32.A Depression, unspecified; Z87.891 Personal history of nicotine dependence; Z79.899 Other long term (current) drug therapy; Z91.030 Bee allergy status; Z88.8 Allergy status to other drugs, medicaments and biological substances
CPT/HCPCS: 99283; 96372 ×2; J2360; J2930

== ENCOUNTER 2023-02-18 15:13 | Emergency (ER) | payer OTHER, MEDICARE ==
[2023-02-18 15:20] VITALS: TEMP 97.8
[2023-02-18 16:15] LABS: Basophils % (A) 1 %; Eosinophils # (A) 0.2 k/uL (0-0.7); Eosinophils % (A) 4 %; HCT 38.7 % (39.0-53.0); HGB 13.6 gm/dL (13.0-17.5); Lymphocytes # (A) 2.3 k/uL (1.0-4.8); Lymphocytes % (A) 43 %; MCH 30.9 pg (25.0-35.0); MCHC 35.1 g/dL (31.0-37.0); MCV 87.9 fL (80.0-100.0); Monocytes # (A) 0.3 k/uL (0-1.0); Monocytes % (A) 6 %; Neutrophils # (A) 2.3 k/uL (1.3-7.7); Neutrophils % (A) 43 %; Platelet Count 198 k/uL (150-450); RDW 12.6 % (11.5-15.5); WBC 5.4 k/uL (3.8-10.6)
--- NOTE | 2023-02-18 16:21 | ED ---
Chest Pain HPI - General Chief Complaint: Chest Pain Stated Complaint: chest pain L arm numbness Time Seen by Provider: 02/18/23 15:24 Source: patient, RN notes reviewed, old records reviewed Mode of arrival: ambulatory Limitations: no limitations - History of Present Illness Initial Comments: This is a 42-year-old male to the emergency department for evaluation patient Dese for evaluation regards to chest pain left-sided chest pain left arm pain. Patient has no significant heart history no significant cardiac disease. Patient is well-known to our facility coming in for multiple different complaints occasionally. No recent travel history no sick contacts of fever cough or congestion. Again chest pain is left-sided with numbness until he down left arm MD Complaint: chest pain, other (Left arm numbness and tingling) -: hour(s) Onset: during rest, during exertion Pain Location: left chest Pain Radiation: LUE Severity: mild Severity scale (1-10): 2 Quality: sharp Consistency: intermittent Improves With: nothing Worsens With: nothing - Related Data Home Medications Medication Instructions Recorded Confirmed PARoxetine HCL [Paxil] 30 mg PO DAILY 08/22/19 02/18/23 traZODone HCL 150 mg PO HS 10/09/20 02/18/23 Prazosin HCl 6 mg PO HS 06/05/22 02/18/23 EPINEPHrine (Auto Inject) [Epipen] 0.3 mg IM ONCE PRN 10/16/22 02/18/23 Pantoprazole [Protonix] 40 mg PO AC-BID PRN 12/09/22 02/18/23 Apixaban [Eliquis] 5 mg PO BID 02/18/23 02/18/23 Atorvastatin [Lipitor] 10 mg PO HS 02/18/23 02/18/23 HYDROcodone/APAP 10-325MG [[place] 1 tab PO TID 02/18/23 02/18/23 10-325] Metoprolol Tartrate [Lopressor] 25 mg PO DAILY 02/18/23 02/18/23 methocarbamoL [Robaxin] 500 mg PO HS 02/18/23 02/18/23 Previous Rx's Medication Instructions Recorded Isosorbide Mononitrate ER [Imdur] 30 mg PO DAILY #30 tab 06/08/22 Allergies Allergy/AdvReac Type Severity Reaction Status Date / Time ketorolac tromethamine Allergy Rash/Hives/Swelling Verified 02/18/23 18:03 [From Toradol] at injection site venom-honey bee Allergy Anaphylaxis Verified 02/18/23 18:03 [bee venom (honey bee)] naproxen AdvReac Nausea & Verified 02/18/23 18:03 Vomiting & Diarrhea Review of Systems ROS Statement: Those systems with pertinent positive or pertinent negative responses have been documented in the HPI. ROS Other: All systems not noted in ROS Statement are negative. EKG Findings - EKG Comments: EKG Findings:: EKG is sinus 77 AR 150 QRS 15 QTc 408 Past Medical History Past Medical History: Coronary Artery Disease (CAD), Deep Vein Thrombosis (DVT) Additional Past Medical History / Comment(s): chronic knee pain, back pain, RBBB, elevated heart rate. History of Any Multi-Drug Resistant Organisms: MRSA Date of last positivie culture/infection: 2008 MDRO Source:: thumb Past Surgical History: Appendectomy, Back Surgery, Cholecystectomy, Heart Catheterization With Stent, Orthopedic Surgery Additional Past Surgical History / Comment(s): l4-5 fusion march 2020,l4-s1 fusion in 12/2021, carpel tunnnel release, vascectomy, skin graft knee surg x4, right hip surgery. lower bowel surgery, cholecystectomy 10/2022 Past Anesthesia/Blood Transfusion Reactions: No Reported Reaction Past Psychological History: Anxiety, Depression, PTSD Smoking Status: Former smoker Past Alcohol Use History: Occasional Past Drug Use History: None Reported - Past Family History Father Family Medical History: No Reported History Additional Family Medical History / Comment(s): Father is alive at age 61 was no major medical problems. Mother Family Medical History: No Reported History Additional Family Medical History / Comment(s): Mother is alive at age 56 with history of spinal surgeries and neurological disorders. one sister with no major medical problems. Patient has 1 son and 1 daughter with no major medical problems. General Exam Limitations: no limitations General appearance: alert, in no apparent distress Head exam: Present: atraumatic, normocephalic, normal inspection Eye exam: Present: normal appearance, PERRL, EOMI. Absent: scleral icterus, conjunctival injection, periorbital swelling ENT exam: Present: normal exam, mucous membranes moist Neck exam: Present: normal inspection. Absent: tenderness, meningismus, lymphadenopathy Respiratory exam: Present: normal lung sounds bilaterally. Absent: respiratory distress, wheezes, rales, rhonchi, stridor Cardiovascular Exam: Present: regular rate, normal rhythm, normal heart sounds. Absent: systolic murmur, diastolic murmur, rubs, gallop, clicks GI/Abdominal exam: Present: soft, normal bowel sounds. Absent: distended, tenderness, guarding, rebound, rigid Extremities exam: Present: normal inspection, full ROM, normal capillary refill. Absent: tenderness, pedal edema, joint swelling, calf tenderness Back exam: Present: normal inspection Neurological exam: Present: alert, oriented X3, CN II-XII intact Psychiatric exam: Present: normal affect, normal mood Skin exam: Present: warm, dry, intact, normal color. Absent: rash Course Vital Signs 02/18/23 02/18/23 02/18/23 15:16 15:27 18:57 Temperature 97.8 F Pulse Rate 85 80 Pulse Rate [ 93 Right Radial] Respiratory 20 18 Rate Blood Pressure 136/77 132/78 O2 Sat by Pulse 96 100 Oximetry - Reevaluation(s) Reevaluation #1: 02/19/23 00:00 Medical records reviewed Reevaluation #2: 02/19/23 00:00 No change in symptoms here in the ER no chest pain or shortness of breath 02/19/23 00:01 Patient improved here in the ER Reevaluation #3: 02/19/23 00:01 Patient informed results and questions answered Reevaluation #4: 02/19/23 00:01 Was pt. sent in by a medical professional or institution? @ -no Did you speak to anyone other than the patient for history? @ -no Did you review nursing and triage notes? @ -agree Were old charts reviewed? @ -no Differential Diagnosis? @ -prior EKG interpreted by me (3pts min.)? @ -no X-rays interpreted by me (1pt min.)? @ -no CT interpreted by me (1pt min.)? @ -no U/S interpreted by me (1pt. min.)? @ -no What testing was considered but not performed? (CT, X-rays, U/S, labs)? Why? @ -no What meds were considered but not given? Why? @ -no Did you discuss the management of the patient with other professionals? @ -no Did you reconcile home meds? @ -no Was smoking cessation discussed for >3mins.? @ -no Was critical care preformed (if so, how long)? @ -no Were there social determinants of health that impacted care today? How? (Homelessness, low income, unemployed, alcoholism, drug addiction, transportation, low edu. Level, literacy, decrease access to med. care, senior living, rehab)? @ -no Was there de-escalation of care discussed even if they declined? (Discuss DNR or withdrawal of care, Hospice)? @ -no What co-morbidities impacted this encounter? (DM, HTN, Smoking, COPD, CAD, Cancer, CVA, Hep., AIDS, mental health diagnosis, sleep apnea, morbid obesity)? @ -no Was patient admitted / discharged? @ -dc Undiagnosed new problem with uncertain prognosis? @ -no Drug Therapy requiring intensive monitoring for toxicity (Heparin, Nitro, Insulin, Cardizem)? @ -no Were any procedures done? @ -no Diagnosis/symptom? @ -cp Acute, or Chronic, or Acute on Chronic? @ -no Uncomplicated (without systemic symptoms) or Complicated (systemic symptoms)? @ -no Side effects of treatment? @ -no Exacerbation, Progression, or Severe Exacerbation] @ -no Poses a threat to life or bodily function? @ -no Reevaluation #5: 02/19/23 00:01 Differential Chest Pain: Stable Angina, Unstable Angina, STEMI, NSTEMI Aortic Dissection, Pneumothorax, Musculoskeletal, Esophageal Spasm GERD, Cholecystitis, Pancreatitis, Zoster, this is not meant to be an all-inclusive list. Chest Pain MDM - MDM 42 male to the emergency department for evaluation patient is having chest pain improved here in the ER can be discharged home Disposition Clinical Impression: Chest pain Disposition: HOME SELF-CARE Condition: Good Instructions (If sedation given, give patient instructions): Chest Pain (ED) Is patient prescribed a controlled substance at d/c from ED?: No Referrals: None,Stated [Primary Care Provider] - 1-2 days Time of Disposition: 18:10
--- NOTE | 2023-02-18 16:22 | XR ---
EXAMINATION TYPE: XR chest 2V DATE OF EXAM: 02/18/2023 4:17 PM COMPARISON: Chest radiographs from 10/16/2022 TECHNIQUE: XR chest 2V Frontal and lateral views of the chest. CLINICAL INDICATION:Male, 42 years old with history of Chest Pain; FINDINGS: Lungs/Pleura: There is no evidence of pleural effusion, focal consolidation, or pneumothorax. Pulmonary vascularity: Unremarkable. Heart/mediastinum: Cardiomediastinal silhouette is unremarkable. Musculoskeletal: No acute osseous pathology. IMPRESSION: No acute cardiopulmonary disease/process.
[2023-02-18 16:27] LABS: ALT 42 U/L (4-49); AST 28 U/L (17-59); African American GFR (CKD) >90 (>60 ml/min/1.73 sqM); Albumin 4.3 g/dL (3.5-5.0); Alkaline Phosphatase 70 U/L (38-126); Anion Gap 10 mmol/L; Blood Urea Nitrogen 13 mg/dL (9-20); Calcium 9.2 mg/dL (8.4-10.2); Carbon Dioxide 27 mmol/L (22-30); Chloride 104 mmol/L (98-107); Glucose 92 mg/dL (74-99); Magnesium 1.7 mg/dL (1.6-2.3); Non-African American GFR(CKD) >90 (>60 ml/min/1.73 sqM); Potassium 3.9 mmol/L (3.5-5.1); Sodium 141 mmol/L (137-145); Total Bilirubin 0.4 mg/dL (0.2-1.3); Total Protein 6.9 g/dL (6.3-8.2)
[2023-02-18 16:41] LABS: Partial Thromboplastin Time 26.1 sec (22.0-30.0); Prothrombin Time 10.7 sec (9.0-12.0)
[2023-02-18] MEDS ORDERED: MORPHINE SULFATE 4 MG/ML SYRINGE IVP STA (18:11)
[2023-02-18] MEDS ORDERED: ACET/COD 300 MG/30 MG STARTER PACK 6 TAB BTL PO STA (18:11)
[2023-02-18 18:58] VITALS: BP 132/78; PULSE 80; RESP 18
== END 2023-02-18 18:58 | disposition home or self-care (01) ==
LOC: EC 15:13
DX: R07.89 Other chest pain (principal); I25.10 Atherosclerotic heart disease of native coronary artery without angina pectoris; F41.9 Anxiety disorder, unspecified; F32.A Depression, unspecified; Z79.01 Long term (current) use of anticoagulants; Z79.899 Other long term (current) drug therapy; Z87.891 Personal history of nicotine dependence; Z88.6 Allergy status to analgesic agent; Z91.030 Bee allergy status; Z90.49 Acquired absence of other specified parts of digestive tract
CPT/HCPCS: 36415; 93005; 80053; 83735; 84484; 85025; 85610; 85730; 71046; 99285; 96374; J2270

== ENCOUNTER 2023-02-26 22:12 | Emergency (ER) | payer OTHER, MEDICARE ==
[2023-02-26] MEDS ORDERED: HYDROmorphone 0.5 MG/0.5 ML SYRINGE IM STA (22:43)
--- NOTE | 2023-02-26 23:15 | XR ---
EXAMINATION TYPE: XR knee complete LT DATE OF EXAM: 02/26/2023 10:52 PM INDICATION: Patient age:Male; 42 years old; Reason for study: fall; COMPARISON: None. TECHNIQUE: The Left knee(s) was examined in Frontal, lateral and oblique projections. FINDINGS: No evidence of any acute osseous pathology, soft tissue swelling, or joint effusion is no cathryn. Joint spaces are preserved. No significant degeneration changes of the knee. IMPRESSION: 1. No acute osseous pathology. 2. Mild tricompartmental osteoarthritic changes.
[2023-02-26] MEDS ORDERED: ACET/COD 300 MG/30 MG STARTER PACK 6 TAB BTL PO STA (23:18)
--- NOTE | 2023-02-26 23:19 | ED ---
Lower Extremity Injury HPI - General Chief Complaint: Extremity Injury, Lower Stated Complaint: fall/Lt knee pain @1840 Time Seen by Provider: 02/26/23 22:37 Source: patient Mode of arrival: ambulatory Limitations: no limitations - History of Present Illness Initial Comments: Patient is a 42-year-old male who presents to the emergency department for left knee pain. Patient tripped falling onto his left knee. He did not hit his head or lose consciousness. He is on Eliquis he denies headache, vomiting. Patient has pain in the front of his left knee which is significantly worsened with walking. He denies numbness and tingling. - Related Data Home Medications Medication Instructions Recorded Confirmed PARoxetine HCL [Paxil] 30 mg PO DAILY 08/22/19 02/18/23 traZODone HCL 150 mg PO HS 10/09/20 02/18/23 Prazosin HCl 6 mg PO HS 06/05/22 02/18/23 EPINEPHrine (Auto Inject) [Epipen] 0.3 mg IM ONCE PRN 10/16/22 02/18/23 Pantoprazole [Protonix] 40 mg PO AC-BID PRN 12/09/22 02/18/23 Apixaban [Eliquis] 5 mg PO BID 02/18/23 02/18/23 Atorvastatin [Lipitor] 10 mg PO HS 02/18/23 02/18/23 HYDROcodone/APAP 10-325MG [[place] 1 tab PO TID 02/18/23 02/18/23 10-325] Metoprolol Tartrate [Lopressor] 25 mg PO DAILY 02/18/23 02/18/23 methocarbamoL [Robaxin] 500 mg PO HS 02/18/23 02/18/23 Previous Rx's Medication Instructions Recorded Isosorbide Mononitrate ER [Imdur] 30 mg PO DAILY #30 tab 06/08/22 Allergies Allergy/AdvReac Type Severity Reaction Status Date / Time ketorolac tromethamine Allergy Rash/Hives/Swelling Verified 02/18/23 18:03 [From Toradol] at injection site venom-honey bee Allergy Anaphylaxis Verified 02/18/23 18:03 [bee venom (honey bee)] naproxen AdvReac Nausea & Verified 02/18/23 18:03 Vomiting & Diarrhea Review of Systems ROS Statement: Those systems with pertinent positive or pertinent negative responses have been documented in the HPI. ROS Other: All systems not noted in ROS Statement are negative. Past Medical History Past Medical History: Coronary Artery Disease (CAD), Deep Vein Thrombosis (DVT) Additional Past Medical History / Comment(s): chronic knee pain, back pain, RBBB, elevated heart rate. History of Any Multi-Drug Resistant Organisms: MRSA Date of last positivie culture/infection: 2008 MDRO Source:: thumb Past Surgical History: Appendectomy, Back Surgery, Cholecystectomy, Heart Catheterization With Stent, Orthopedic Surgery Additional Past Surgical History / Comment(s): l4-5 fusion march 2020,l4-s1 fusion in 12/2021, carpel tunnnel release, vascectomy, skin graft knee surg x4, right hip surgery. lower bowel surgery, cholecystectomy 10/2022 Past Anesthesia/Blood Transfusion Reactions: No Reported Reaction Past Psychological History: Anxiety, Depression, PTSD Smoking Status: Former smoker Past Alcohol Use History: Occasional Past Drug Use History: None Reported - Past Family History Father Family Medical History: No Reported History Additional Family Medical History / Comment(s): Father is alive at age 61 was no major medical problems. Mother Family Medical History: No Reported History Additional Family Medical History / Comment(s): Mother is alive at age 56 with history of spinal surgeries and neurological disorders. one sister with no major medical problems. Patient has 1 son and 1 daughter with no major medical problems. General Exam Limitations: no limitations General appearance: alert, in no apparent distress Head exam: Present: atraumatic, normocephalic, normal inspection Eye exam: Present: normal appearance, PERRL, EOMI. Absent: scleral icterus, conjunctival injection, periorbital swelling Neck exam: Present: normal inspection. Absent: tenderness, meningismus, lymphadenopathy Respiratory exam: Present: normal lung sounds bilaterally. Absent: respiratory distress, wheezes, rales, rhonchi, stridor Cardiovascular Exam: Present: regular rate, normal rhythm, normal heart sounds. Absent: systolic murmur, diastolic murmur, rubs, gallop, clicks Extremities exam: Present: other (Mild swelling to the inferior aspect of left knee with tenderness. No erythema or warmth. Full range of motion. No laxity or clicking. Pain with knee flexion. DP 2+. Sensation intact.) Neurological exam: Present: alert, oriented X3, CN II-XII intact Psychiatric exam: Present: normal affect, normal mood Skin exam: Present: warm, dry, intact, normal color. Absent: rash Course Vital Signs 02/26/23 02/26/23 22:20 22:48 Temperature 98.4 F 97.9 F Pulse Rate 93 92 Respiratory 16 20 Rate Blood Pressure 142/87 114/78 O2 Sat by Pulse 98 96 Oximetry Medical Decision Making - Medical Decision Making Was pt. sent in by a medical professional or institution (, [facility], MAINTENANCE ADVISOR, urgent care, hospital, or residential...) When possible be specific @ -No Did you speak to anyone other than the patient for history (EMS, parent, family, police, friend...)? What history was obtained from this source @ -No Did you review nursing and triage notes (agree or disagree)? Why? @ -I reviewed and agree with nursing and triage notes Were old charts reviewed (outside hosp., previous admission, EMS record, old EKG, old radiological studies, urgent care reports/EKG's, residential records)? Report findings @ -No old charts were reviewed Differential Diagnosis (chest pain, altered mental status, abdominal pain women, abdominal pain men, vaginal bleeding, weakness, fever, dyspnea, syncope, headache, dizziness, GI bleed, back pain, seizure, CVA, palpatations, mental health)? @ -knee sprain, knee fracture, contusion, soft tissue injury, cellulitis EKG interpreted by me (3pts min.). @ -As above X-rays interpreted by me (1pt min.). @ -Yes, left knee x-ray negative for acute process. CT interpreted by me (1pt min.). @ -None done U/S interpreted by me (1pt. min.). @ -None done What testing was considered but not performed or refused? (CT, X-rays, U/S, labs)? Why? @ -None What meds were considered but not given or refused? Why? @ -None Did you discuss the management of the patient with other professionals (professionals i.e. [facility] Muhammad, MAINTENANCE ADVISOR, lab, RT, psych nurse, social organization professor, steam press operator, teacher, technology officer, rn case mgr)? Give summary @ -No Was smoking cessation discussed for >3mins.? @ -No Was critical care preformed (if so, how long)? @ -No Were there social determinants of health that impacted care today? How? (Homelessness, low income, unemployed, alcoholism, drug addiction, transportation, low edu. Level, literacy, decrease access to med. care, detention, rehab)? @ -No Was there de-escalation of care discussed even if they declined (Discuss DNR or withdrawal of care, Hospice)? DNR status @ -No What co-morbidities impacted this encounter? (DM, HTN, Smoking, COPD, CAD, Can cer, CVA, ARF, Chemo, Hep., AIDS, mental health diagnosis, sleep apnea, morbid obesity)? @ -None Was patient admitted / discharged? Hospital course, mention meds given and route, prescriptions, significant lab abnormalities, going to OR and other pertinent info. @ -Patient presenting with left knee pain after fall. There is mild swelling t o the lower aspect of the knee with tenderness. Neurovascularly intact. Full range of motion. Patient has significant tenderness with knee flexion. X-ray negative for fracture, dislocation, effusion. Patient placed in knee immobilizer for knee sprain and given crutches. RICE instructions discussed in detail. Patient to follow-up with digital strategy specialist. Undiagnosed new problem with uncertain prognosis? @ -No Drug Therapy requiring intensive monitoring for toxicity (Heparin, Nitro, Insulin, Cardizem)? @ -No Were any procedures done? @ -No Diagnosis/symptom? @ -left knee sprain Acute, or Chronic, or Acute on Chronic? @ -acute Uncomplicated (without systemic symptoms) or Complicated (systemic symptoms)? @ -uncomplicated Side effects of treatment? @ -No Exacerbation, Progression, or Severe Exacerbation? @ -No Poses a threat to life or bodily function? How? (Chest pain, [place], MA, pneumonia, PE, COPD, DKA, ARF, appy, cholecystitis, CVA, Diverticulitis, Homicidal, Suicidal, threat to staff... and all critical care pts) @ -No Dr. Rhoades is my attending. Disposition Clinical Impression: Left knee sprain Disposition: HOME SELF-CARE Condition: Good Instructions (If sedation given, give patient instructions): Knee Sprain (ED) Additional Instructions: Rest and elevate the joint as much as possible. Ice the injury for the next 24- 48 hours. If symptoms continue after, apply warm compress. Take Tylenol for pain save Tylenol 3 for severe pain. Use crutches and bear weight as tolerated until orthopedic evaluation. Follow-up with digital strategy specialist in 1 to 2 days. Return to the emergency department if you experience new, concerning, or worsening symptoms. Is patient prescribed a controlled substance at d/c from ED?: No Referrals: None,Stated [Primary Care Provider] - 1-2 days Wayne Cotter MD [Medical Doctor] - 1-2 days
[2023-02-26 23:40] VITALS: BP 131/72; PULSE 83; RESP 18; TEMP 98.2
== END 2023-02-26 23:39 | disposition home or self-care (01) ==
LOC: EC 22:12
DX: S83.92XA Sprain of unspecified site of left knee, initial encounter (principal); I25.10 Atherosclerotic heart disease of native coronary artery without angina pectoris; F41.9 Anxiety disorder, unspecified; F32.A Depression, unspecified; Z87.891 Personal history of nicotine dependence; Z79.899 Other long term (current) drug therapy; Z91.030 Bee allergy status; Z91.018 Allergy to other foods; Z88.8 Allergy status to other drugs, medicaments and biological substances; W01.0XXA Fall on same level from slipping, tripping and stumbling without subsequent striking against object, initial encounter
CPT/HCPCS: 73562; 99283; 96372; J1170

== ENCOUNTER 2023-03-19 20:45 | Emergency (ER) | payer OTHER, MEDICARE ==
[2023-03-19 21:01] VITALS: RESP 20
--- NOTE | 2023-03-19 21:23 | XR ---
EXAMINATION TYPE: XR ankle complete LT, XR foot complete LT DATE OF EXAM: 03/19/2023 9:14 PM INDICATION: Patient age:Male; 42 years old; Reason for study: pain; COMPARISON: 12/10/2022 TECHNIQUE: The left foot and ankle is imaged in frontal, lateral and oblique projections. FINDINGS: There is no evidence of acute osseous pathology. The joint spaces are well-preserved without evidenc e of subluxation or dislocation. Kager's fat pad is intact. Mild soft tissue swelling around the ankl e. No radiopaque foreign bodies are identified. Remote injury to the second and third metatarsals wit h some spiculated calcification near the injury site which could represent foreign bodies versus sequ castro prior injury. IMPRESSION: 1. No evidence of acute fracture. 2. Subcutaneous swelling around the ankle likely secondary to underlying soft tissue injury. 3. Remote injury to the second and third metatarsals.
[2023-03-19] MEDS ORDERED: ACETAMINOPHEN TAB 325 MG TAB PO STA (22:23)
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
[2023-03-19 23:08] VITALS: BP 116/81; PULSE 78; TEMP 98.2
== END 2023-03-19 23:08 | disposition home or self-care (01) ==
LOC: EC 20:45
DX: S96.912A Strain of unspecified muscle and tendon at ankle and foot level, left foot, initial encounter (principal); I25.10 Atherosclerotic heart disease of native coronary artery without angina pectoris; F41.9 Anxiety disorder, unspecified; F32.A Depression, unspecified; Z79.899 Other long term (current) drug therapy; Z79.01 Long term (current) use of anticoagulants; Z88.6 Allergy status to analgesic agent; Z91.030 Bee allergy status; Z87.891 Personal history of nicotine dependence; W22.09XA Striking against other stationary object, initial encounter
CPT/HCPCS: 99283

== ENCOUNTER 2023-03-22 22:04 | Emergency (ER) | payer OTHER, MEDICARE ==
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
--- NOTE | 2023-03-22 22:36 | XR ---
EXAMINATION TYPE: XR lumbar spine 2 or 3V DATE OF EXAM: 03/22/2023 COMPARISON: 11/06/2022 HISTORY: Low back pain TECHNIQUE: Three-view lumbar spine upright view FINDINGS: Pedicle screws and fixation rods are again evident. There is a disc spacer at the lumbosacr al junction. Vertebral body heights are preserved. Visualized Disc heights are preserved. No signific ant interval change is evident. IMPRESSION: 1. Stable appearing Postsurgical lumbar spine
[2023-03-22] MEDS ORDERED: ACETAMINOPHEN TAB 325 MG TAB PO STA (23:44)
[2023-03-23] MEDS ORDERED: MORPHINE SULFATE 2 MG/ML SYRINGE IM ONE (00:51)
[2023-03-23 01:33] VITALS: BP 107/69; PULSE 67; RESP 18; TEMP 97.5
== END 2023-03-23 01:10 | disposition home or self-care (01) ==
LOC: EC 22:04
DX: M54.50 Low back pain, unspecified (principal); I25.10 Atherosclerotic heart disease of native coronary artery without angina pectoris; F32.A Depression, unspecified; F41.9 Anxiety disorder, unspecified; Z79.899 Other long term (current) drug therapy; Z79.01 Long term (current) use of anticoagulants; Z86.718 Personal history of other venous thrombosis and embolism; Z87.891 Personal history of nicotine dependence; Z88.6 Allergy status to analgesic agent; Z91.030 Bee allergy status
CPT/HCPCS: 72100; 99283; 96372; J2270

== ENCOUNTER 2023-04-02 22:40 | Emergency (ER) | payer OTHER, MEDICARE ==
[2023-04-03] MEDS ORDERED: ACETAMINOPHEN TAB 500 MG TAB PO STA (01:04)
[2023-04-03] MEDS ORDERED: LIDOCAINE 5% PATCH TOPICAL STA (01:04)
--- NOTE | 2023-04-03 02:02 | ED ---
Lower Extremity Injury HPI - General Chief Complaint: Extremity Injury, Lower Stated Complaint: R Leg Pain Time Seen by Provider: 04/03/23 00:25 Source: patient Mode of arrival: ambulatory Limitations: no limitations - History of Present Illness Initial Comments: Patient is a 42-year-old male presents the emergency department for thigh pain. Patient reports right thigh pain in the back. After massage by his yesterday. He denies any calf pain or swelling but does have history of DVT in left upper extremity. He is on eliquis. He denies chest pain and shortness of breath. - Related Data Home Medications Medication Instructions Recorded Confirmed PARoxetine HCL [Paxil] 30 mg PO DAILY 08/22/19 02/18/23 traZODone HCL 150 mg PO HS 10/09/20 02/18/23 Prazosin HCl 6 mg PO HS 06/05/22 02/18/23 EPINEPHrine (Auto Inject) [Epipen] 0.3 mg IM ONCE PRN 10/16/22 02/18/23 Pantoprazole [Protonix] 40 mg PO AC-BID PRN 12/09/22 02/18/23 Apixaban [Eliquis] 5 mg PO BID 02/18/23 02/18/23 Atorvastatin [Lipitor] 10 mg PO HS 02/18/23 02/18/23 HYDROcodone/APAP 10-325MG [[place] 1 tab PO TID 02/18/23 02/18/23 10-325] Metoprolol Tartrate [Lopressor] 25 mg PO DAILY 02/18/23 02/18/23 methocarbamoL [Robaxin] 500 mg PO HS 02/18/23 02/18/23 Previous Rx's Medication Instructions Recorded Isosorbide Mononitrate ER [Imdur] 30 mg PO DAILY #30 tab 06/08/22 Acetaminophen Tab [Tylenol] 1,000 mg PO Q6H PRN #30 tab 04/03/23 Lidocaine 5% Patch [Lidoderm 5% 1 patch TOPICAL DAILY PRN #7 patch 04/03/23 Patch] Allergies Allergy/AdvReac Type Severity Reaction Status Date / Time ketorolac tromethamine Allergy Rash/Hives/Swelling Verified 04/02/23 23:01 [From Toradol] at injection site venom-honey bee Allergy Anaphylaxis Verified 04/02/23 23:01 [bee venom (honey bee)] naproxen AdvReac Nausea & Verified 04/02/23 23:01 Vomiting & Diarrhea Review of Systems ROS Statement: Those systems with pertinent positive or pertinent negative responses have been documented in the HPI. ROS Other: All systems not noted in ROS Statement are negative. Past Medical History Past Medical History: Coronary Artery Disease (CAD), Deep Vein Thrombosis (DVT) Additional Past Medical History / Comment(s): chronic knee pain, back pain, RBBB, elevated heart rate. History of Any Multi-Drug Resistant Organisms: MRSA Date of last positivie culture/infection: 2008 MDRO Source:: thumb Past Surgical History: Appendectomy, Back Surgery, Cholecystectomy, Heart Catheterization With Stent, Orthopedic Surgery Additional Past Surgical History / Comment(s): l4-5 fusion march 2020,l4-s1 fusion in 12/2021, carpel tunnnel release, vascectomy, skin graft knee surg x4, right hip surgery. lower bowel surgery, cholecystectomy 10/2022 Past Anesthesia/Blood Transfusion Reactions: No Reported Reaction Past Psychological History: Anxiety, Depression, PTSD Smoking Status: Former smoker Past Alcohol Use History: Occasional Past Drug Use History: None Reported - Past Family History Father Family Medical History: No Reported History Additional Family Medical History / Comment(s): Father is alive at age 61 was no major medical problems. Mother Family Medical History: No Reported History Additional Family Medical History / Comment(s): Mother is alive at age 56 with history of spinal surgeries and neurological disorders. one sister with no major medical problems. Patient has 1 son and 1 daughter with no major medical problems. General Exam Limitations: no limitations General appearance: alert, in no apparent distress Head exam: Present: atraumatic, normocephalic, normal inspection Cardiovascular Exam: Present: regular rate, normal rhythm, normal heart sounds. Absent: systolic murmur, diastolic murmur, rubs, gallop, clicks GI/Abdominal exam: Present: soft, normal bowel sounds. Absent: distended, tenderness, guarding, rebound, rigid Right Upper Leg exam: Present: normal inspection, full ROM. Absent: tenderness, swelling Knee exam: Present: normal inspection, full ROM. Absent: tenderness, swelling Lower Leg exam: Present: normal inspection, full ROM. Absent: tenderness, swelling, palpable cord, Homans' sign Neurovascular tendon exam: Present: no vascular compromise Skin exam: Present: warm, dry, intact, normal color. Absent: rash Course Vital Signs 04/02/23 04/03/23 22:57 02:11 Temperature 98.0 F 97.8 F Pulse Rate 78 79 Respiratory 20 18 Rate Blood Pressure 130/73 116/72 O2 Sat by Pulse 97 99 Oximetry Medical Decision Making - Medical Decision Making Was pt. sent in by a medical professional or institution (, [facility], ARC AIR OPERATOR, urgent care, hospital, or skilled nursing...) When possible be specific @ -No Did you speak to anyone other than the patient for history (EMS, parent, family, police, friend...)? What history was obtained from this source @ -No Did you review nursing and triage notes (agree or disagree)? Why? @ -I reviewed and agree with nursing and triage notes Were old charts reviewed (outside hosp., previous admission, EMS record, old EKG, old radiological studies, urgent care reports/EKG's, skilled nursing records)? Report findings @ -No old charts were reviewed Differential Diagnosis (chest pain, altered mental status, abdominal pain women, abdominal pain men, vaginal bleeding, weakness, fever, dyspnea, syncope, headache, dizziness, GI bleed, back pain, seizure, CVA, palpatations, mental health)? @ -DVT, soft tissue injury, contusion, muscle strain, cellulitis. This list is not meant to be all-inclusive EKG interpreted by me (3pts min.). @ -None X-rays interpreted by me (1pt min.). @ -None done CT interpreted by me (1pt min.). @ -None done U/S interpreted by me (1pt. min.). @ -None done What testing was considered but not performed or refused? (CT, X-rays, U/S, labs)? Why? @ -None What meds were considered but not given or refused? Why? @ -None Did you discuss the management of the patient with other professionals (professionals i.e. [facility] Muhammad, ARC AIR OPERATOR, lab, RT, psych nurse, pediatric social worker, pearl cutter, teacher, disciplinary hearing officer, rn field case manager)? Give summary @ -No Was smoking cessation discussed for >3mins.? @ -No Was critical care preformed (if so, how long)? @ -No Were there social determinants of health that impacted care today? How? (Homelessness, low income, unemployed, alcoholism, drug addiction, transportation, low edu. Level, literacy, decrease access to med. care, group home, rehab)? @ -No Was there de-escalation of care discussed even if they declined (Discuss DNR or withdrawal of care, Hospice)? DNR status @ -No What co-morbidities impacted this encounter? (DM, HTN, Smoking, COPD, CAD, Cancer, CVA, ARF, Chemo, Hep., AIDS, mental health diagnosis, sleep apnea, morbid obesity)? @ -None Was patient admitted / discharged? Hospital course, mention meds given and route, prescriptions, significant lab abnormalities, going to OR and other pertinent info. @ -Discharged. Patient has mild pain about his right thigh. D-dimer is negative. He has no calf pain or swelling. He is discharged with symptomatic management. Undiagnosed new problem with uncertain prognosis? @ -No Drug Therapy requiring intensive monitoring for toxicity (Heparin, Nitro, Insulin, Cardizem)? @ -No Were any procedures done? @ -No Diagnosis/symptom? @ -right thigh pain Acute, or Chronic, or Acute on Chronic? @ -acute Uncomplicated (without systemic symptoms) or Complicated (systemic symptoms)? @ -uncomplicated Side effects of treatment? @ -No Exacerbation, Progression, or Severe Exacerbation? @ -No Poses a threat to life or bodily function? How? (Chest pain, USA, CA, pneumonia, PE, COPD, DKA, ARF, appy, cholecystitis, CVA, Diverticulitis, Homicidal, Suicidal, threat to staff... and all critical care pts) @ -No Dr. Rhoades is my attending - Lab Data Lab Results 04/03/23 Range/Units 01:30 D-Dimer 0.44 (<0.60) mg/L FEU Disposition Clinical Impression: Right thigh pain Disposition: HOME SELF-CARE Condition: Good Instructions (If sedation given, give patient instructions): P.R.I.C.E. Treatment (ED) Additional Instructions: Take medication as directed. Please follow-up with your primary care provider in 1-2 days. Return to the emergency department if you experience new, concerning, or worsening symptoms. Prescriptions: Lidocaine 5% Patch [Lidoderm 5% Patch] 1 patch TOPICAL DAILY PRN #7 patch PRN Reason: Pain Acetaminophen Tab [Tylenol] 1,000 mg PO Q6H PRN #30 tab PRN Reason: Pain Is patient prescribed a controlled substance at d/c from ED?: No Referrals: Nonstaff,Physician [Primary Care Provider] - 1-2 days
[2023-04-03 02:16] VITALS: BP 116/72; PULSE 79; RESP 18; TEMP 97.8
== END 2023-04-03 02:18 | disposition home or self-care (01) ==
LOC: EC 22:40
DX: M79.651 Pain in right thigh (principal); I25.10 Atherosclerotic heart disease of native coronary artery without angina pectoris; Z87.891 Personal history of nicotine dependence; Z79.899 Other long term (current) drug therapy; Z91.030 Bee allergy status; Z88.8 Allergy status to other drugs, medicaments and biological substances
CPT/HCPCS: 36415; 85379; 99283

== ENCOUNTER 2023-04-13 23:19 | Emergency (ER) | payer OTHER, MEDICARE ==
[2023-04-13 23:22] VITALS: BP 136/90; RESP 18; TEMP 97.8
[2023-04-13] MEDS ORDERED: DEXAMETHASONE SOD PHOSPHATE 10 MG/ML 1 ML VIAL IVP STA (23:39)
[2023-04-13] MEDS ORDERED: METOCLOPRAMIDE 5 MG/ML 2 ML VIAL IVP STA (23:39)
[2023-04-13] MEDS ORDERED: SODIUM CHLORIDE 0.9% 1,000 ML IV STA (23:39)
[2023-04-13] MEDS ORDERED: diphenhydrAMINE 50 MG/ML 1 ML VIAL IVP STA (23:39)
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
[2023-04-14 01:53] VITALS: PULSE 77
== END 2023-04-14 01:53 | disposition home or self-care (01) ==
LOC: EC 23:19
DX: G43.909 Migraine, unspecified, not intractable, without status migrainosus (principal); I25.10 Atherosclerotic heart disease of native coronary artery without angina pectoris; F41.9 Anxiety disorder, unspecified; F32.A Depression, unspecified; Z87.891 Personal history of nicotine dependence; Z79.899 Other long term (current) drug therapy; Z88.8 Allergy status to other drugs, medicaments and biological substances; Z91.030 Bee allergy status
CPT/HCPCS: 99283; 96374; 96375 ×2; 96361 ×2; J1200; J1100; J2765

== ENCOUNTER 2023-04-15 22:07 | Emergency (ER) | payer OTHER, MEDICARE ==
[2023-04-15 22:36] VITALS: BP 131/81; PULSE 73; RESP 18; TEMP 98.3
[2023-04-15] MEDS ORDERED: HYDROmorphone 0.5 MG/0.5 ML SYRINGE IM STA (23:21)
[2023-04-16] MEDS ORDERED: droPERidol 5 MG/2 ML VIAL IM ONE (00:04)
--- NOTE | 2023-04-16 00:51 | ED ---
Headache HPI - General Chief Complaint: Headache Stated Complaint: Revisit - migraines Time Seen by Provider: 04/15/23 23:18 Mode of arrival: ambulatory Limitations: no limitations - History of Present Illness Initial Comments: 42-year-old male well-known for ER presenting with chief complaint of headache. Patient has history of headaches. He states that this headache is been ongoing for the last week. Located primarily in the frontal region. No head injury. No nausea, vomiting, dizziness, weakness, numbness, tingling, vision or hearing changes, chest pain, difficulty breathing, neck pain. - Related Data Home Medications Medication Instructions Recorded Confirmed PARoxetine HCL [Paxil] 30 mg PO DAILY 08/22/19 02/18/23 traZODone HCL 150 mg PO HS 10/09/20 02/18/23 Prazosin HCl 6 mg PO HS 06/05/22 02/18/23 EPINEPHrine (Auto Inject) [Epipen] 0.3 mg IM ONCE PRN 10/16/22 02/18/23 Pantoprazole [Protonix] 40 mg PO AC-BID PRN 12/09/22 02/18/23 Apixaban [Eliquis] 5 mg PO BID 02/18/23 02/18/23 Atorvastatin [Lipitor] 10 mg PO HS 02/18/23 02/18/23 HYDROcodone/APAP 10-325MG [Dale 1 tab PO TID 02/18/23 02/18/23 10-325] Metoprolol Tartrate [Lopressor] 25 mg PO DAILY 02/18/23 02/18/23 methocarbamoL [Robaxin] 500 mg PO HS 02/18/23 02/18/23 Previous Rx's Medication Instructions Recorded Isosorbide Mononitrate ER [Imdur] 30 mg PO DAILY #30 tab 06/08/22 Acetaminophen Tab [Tylenol] 1,000 mg PO Q6H PRN #30 tab 04/03/23 Lidocaine 5% Patch [Lidoderm 5% 1 patch TOPICAL DAILY PRN #7 patch 04/03/23 Patch] Allergies Allergy/AdvReac Type Severity Reaction Status Date / Time ketorolac tromethamine Allergy Rash/Hives/Swelling Verified 04/15/23 22:36 [From Toradol] at injection site venom-honey bee Allergy Anaphylaxis Verified 04/15/23 22:36 [bee venom (honey bee)] naproxen AdvReac Nausea & Verified 04/15/23 22:36 Vomiting & Diarrhea Review of Systems ROS Statement: Those systems with pertinent positive or pertinent negative responses have been documented in the HPI. ROS Other: All systems not noted in ROS Statement are negative. Past Medical History Past Medical History: Coronary Artery Disease (CAD), Deep Vein Thrombosis (DVT) Additional Past Medical History / Comment(s): chronic knee pain, back pain, RBBB, elevated heart rate. History of Any Multi-Drug Resistant Organisms: MRSA Date of last positivie culture/infection: 2008 MDRO Source:: thumb Past Surgical History: Appendectomy, Back Surgery, Cholecystectomy, Heart Catheterization With Stent, Orthopedic Surgery Additional Past Surgical History / Comment(s): l4-5 fusion march 2020,l4-s1 fusion in 12/2021, carpel tunnnel release, vascectomy, skin graft knee surg x4, right hip surgery. lower bowel surgery, cholecystectomy 10/2022 Past Anesthesia/Blood Transfusion Reactions: No Reported Reaction Past Psychological History: Anxiety, Depression, PTSD Smoking Status: Former smoker Past Alcohol Use History: Occasional Past Drug Use History: None Reported - Past Family History Father Family Medical History: No Reported History Additional Family Medical History / Comment(s): Father is alive at age 61 was no major medical problems. Mother Family Medical History: No Reported History Additional Family Medical History / Comment(s): Mother is alive at age 56 with history of spinal surgeries and neurological disorders. one sister with no major medical problems. Patient has 1 son and 1 daughter with no major medical problems. General Exam Limitations: no limitations General appearance: alert, in no apparent distress Head exam: Present: atraumatic, normocephalic, normal inspection Eye exam: Present: normal appearance, PERRL, EOMI. Absent: scleral icterus, periorbital swelling Neck exam: Present: normal inspection, full ROM. Absent: tenderness Respiratory exam: Present: normal lung sounds bilaterally. Absent: respiratory distress, wheezes, rales, rhonchi, stridor Cardiovascular Exam: Present: regular rate, normal rhythm, normal heart sounds. Absent: systolic murmur, diastolic murmur, rubs, gallop, clicks Neurological exam: Present: alert, oriented X3, CN II-XII intact Psychiatric exam: Present: normal affect, normal mood Skin exam: Present: warm, dry, intact, normal color. Absent: rash Course Vital Signs 04/15/23 22:35 Temperature 98.3 F Pulse Rate 73 Respiratory 18 Rate Blood Pressure 131/81 O2 Sat by Pulse 96 Oximetry Medical Decision Making - Medical Decision Making Was pt. sent in by a medical professional or institution (, [facility], HACK DRIVER, urgent care, hospital, or fpc...) When possible be specific @ -No Did you speak to anyone other than the patient for history (EMS, parent, family, police, friend...)? What history was obtained from this source @ -No Did you review nursing and triage notes (agree or disagree)? Why? @ -I reviewed and agree with nursing and triage notes Were old charts reviewed (outside hosp., previous admission, EMS record, old EKG, old radiological studies, urgent care reports/EKG's, fpc records)? Report findings @ -No old charts were reviewed Differential Diagnosis (chest pain, altered mental status, abdominal pain women, abdominal pain men, vaginal bleeding, weakness, fever, dyspnea, syncope, headache, dizziness, GI bleed, back pain, seizure, CVA, palpatations, mental health, musculoskeletal)? @ -MDM Differential Headache: Migraine, tension, cluster, carbon monoxide, central venous thrombosis, pension karma temporal arteritis, acute closure glaucoma, intercranial hemorrhage, mastoiditis, sinusitis, head injury this is not meant to be an all-inclusive list. EKG interpreted by me (3pts min.). @ -As above X-rays interpreted by me (1pt min.). @ -None done CT interpreted by me (1pt min.). @ -None done U/S interpreted by me (1pt. min.). @ -None done What testing was considered but not performed or refused? (CT, X-rays, U/S, labs)? Why? @ -None What meds were considered but not given or refused? Why? @ -None Did you discuss the management of the patient with other professionals (professionals i.e. , [facility], HACK DRIVER, lab, RT, psych nurse, social media specialist, lean six sigma senior specialist, teacher, community cultural development officer, medical case manager)? Give summary @ -No Was smoking cessation discussed for >3mins.? @ -No Was critical care preformed (if so, how long)? @ -No Were there social determinants of health that impacted care today? How? (Homelessness, low income, unemployed, alcoholism, drug addiction, transportation, low edu. Level, literacy, decrease access to med. care, group home, rehab)? @ -No Was there de-escalation of care discussed even if they declined (Discuss DNR or withdrawal of care, Hospice)? DNR status @ -No What co-morbidities impacted this encounter? (DM, HTN, Smoking, COPD, CAD, Cancer, CVA, ARF, Chemo, Hep., AIDS, mental health diagnosis, sleep apnea, morbid obesity)? @ -None Was patient admitted / discharged? Hospital course, mention meds given and route, prescriptions, significant lab abnormalities, going to OR and other pertinent info. @ -6-year-old male presented with chief complaint of headache. History of migraines. Physical examination unremarkable. Patient responds well to pain medication. Follow-up with PCP. Report back to ER with any new or worsening symptoms. Discussed return parameters and answered all questions. Patient conveyed verbal understanding and agreed to the plan. I discussed this case in detail with my attending Dr. Nichols Undiagnosed new problem with uncertain prognosis? @ -No Drug Therapy requiring intensive monitoring for toxicity (Heparin, Nitro, Insulin, Cardizem)? @ -No Were any procedures done? @ -No Diagnosis/symptom? @ -Headache Acute, or Chronic, or Acute on Chronic? @ -Acute Uncomplicated (without systemic symptoms) or Complicated (systemic symptoms)? @ -Uncomplicated Side effects of treatment? @ -No Exacerbation, Progression, or Severe Exacerbation? @ -No Poses a threat to life or bodily function? How? (Chest pain, [place], [place], pneumonia, PE, COPD, DKA, ARF, appy, cholecystitis, CVA, Diverticulitis, Homicidal, Suicidal, threat to staff... and all critical care pts) @ -No Disposition Clinical Impression: Migraine Disposition: HOME SELF-CARE Condition: Good Instructions (If sedation given, give patient instructions): Acute Headache (ED) Additional Instructions: Follow-up with PCP. Report back to ER with any new or worsening symptoms. Take Motrin and Tylenol as needed for pain control. Is patient prescribed a controlled substance at d/c from ED?: No Referrals: Nonstaff,Physician [Primary Care Provider] - 1-2 days Time of Disposition: 00:51
== END 2023-04-16 01:07 | disposition home or self-care (01) ==
LOC: EC 22:07
DX: G43.909 Migraine, unspecified, not intractable, without status migrainosus (principal); I25.2 Old myocardial infarction; F41.9 Anxiety disorder, unspecified; F32.A Depression, unspecified; Z87.891 Personal history of nicotine dependence; Z79.899 Other long term (current) drug therapy; Z91.030 Bee allergy status; Z88.8 Allergy status to other drugs, medicaments and biological substances
CPT/HCPCS: 99283; 96372 ×2; J1170

== ENCOUNTER 2023-04-26 23:14 | Emergency (ER) | payer OTHER, MEDICARE ==
[2023-04-26 23:29] VITALS: RESP 18
[2023-04-26] MEDS ORDERED: PROCHLORPERAZINE INJ 10 MG/2 ML VIAL IVP STA (23:58)
[2023-04-26] MEDS ORDERED: diphenhydrAMINE 50 MG/ML 1 ML VIAL IVP STA (23:58)
[2023-04-26] MEDS ORDERED: SODIUM CHLORIDE 0.9% 1,000 ML IV STA (23:58)
[2023-04-26] MEDS ORDERED: MORPHINE SULFATE 4 MG/ML SYRINGE IVP STA (23:58)
[2023-04-27 00:54] LABS: HCT 41.7 % (39.0-53.0); HGB 14.2 gm/dL (13.0-17.5); MCH 30.6 pg (25.0-35.0); Platelet Count 224 k/uL (150-450); RBC 4.63 m/uL (4.30-5.90); RDW 12.4 % (11.5-15.5); WBC 8.3 k/uL (3.8-10.6)
--- NOTE | 2023-04-27 00:55 | ED ---
General Adult HPI - General Chief complaint: Headache Stated complaint: Migraine Time Seen by Provider: 04/26/23 23:31 Source: patient, RN notes reviewed, old records reviewed Mode of arrival: ambulatory Limitations: no limitations - History of Present Illness Initial comments: Patient is a 42-year-old male who presents emergency Department complaining of a migraine headache. This is a brief visit, as he is here frequently for various complaints. Does have a history of migraine headaches. States he has been having his typical type of migraine headache for altered weeks now. Does not believe it is ever getting better. Does have follow-up with his PCP tomorrow or the next day however he called him this evening and was instructed to come to [facility] emergency department if it is more severe. Describes it as a somewhat generalized throbbing headache, somewhat worse on the right side. This is chronic for the patient. Denies any nausea or vomiting. Denies any neck pain. Denies any blurry vision or weakness. Is on blood thinners for history of DVTs, however he states he is uncertain if he has had recently. Was seen here earlier this month multiple times for similar complaints. States he has been having headaches since then as well. No medications seem to help at home. Presents for further evaluation at this time. - Related Data Home Medications Medication Instructions Recorded Confirmed RX: PARoxetine HCL [Paxil] 30 mg PO DAILY 08/22/19 02/18/23 RX: traZODone HCL 150 mg PO HS 10/09/20 02/18/23 RX: Prazosin HCl 6 mg PO HS 06/05/22 02/18/23 RX: EPINEPHrine (Auto Inject) 0.3 mg IM ONCE PRN 10/16/22 02/18/23 [Epipen] RX: Pantoprazole [Protonix] 40 mg PO AC-BID PRN 12/09/22 02/18/23 Apixaban [Eliquis] 5 mg PO BID 02/18/23 02/18/23 Atorvastatin [Lipitor] 10 mg PO HS 02/18/23 02/18/23 HYDROcodone/APAP 10-325MG [Hartman 1 tab PO TID 02/18/23 02/18/23 10-325] Metoprolol Tartrate [Lopressor] 25 mg PO DAILY 02/18/23 02/18/23 methocarbamoL [Robaxin] 500 mg PO HS 02/18/23 02/18/23 Previous Rx's Medication Instructions Recorded RX: Isosorbide Mononitrate ER 30 mg PO DAILY #30 tab 06/08/22 [Imdur] Acetaminophen Tab [Tylenol] 1,000 mg PO Q6H PRN #30 tab 04/03/23 RX: Lidocaine 5% Patch [Lidoderm 1 patch TOPICAL DAILY PRN #7 patch 04/03/23 5% Patch] Allergies Allergy/AdvReac Type Severity Reaction Status Date / Time ketorolac tromethamine Allergy Rash/Hives/Swelling Verified 04/15/23 22:36 [From Toradol] at injection site venom-honey bee Allergy Anaphylaxis Verified 04/15/23 22:36 [bee venom (honey bee)] droperidol AdvReac Nausea & Verified 04/26/23 23:30 Vomiting & Diarrhea naproxen AdvReac Nausea & Verified 04/15/23 22:36 Vomiting & Diarrhea Review of Systems ROS Statement: Those systems with pertinent positive or pertinent negative responses have been documented in the HPI. Review of Systems: CONST: Denies fever EYES: Denies blurry vision ENT: Denies nasal congestion C/V: Denies Chest pain RESP: Denies shortness of breath GI: Denies abdominal pain : Denies dysuria SKIN: Denies rash. MSK: Denies joint pain. NEURO: Endorses headache ROS Other: All systems not noted in ROS Statement are negative. Past Medical History Past Medical History: Coronary Artery Disease (CAD), Deep Vein Thrombosis (DVT) Additional Past Medical History / Comment(s): chronic knee pain, back pain, RBBB, elevated heart rate. History of Any Multi-Drug Resistant Organisms: MRSA Date of last positivie culture/infection: 2008 MDRO Source:: thumb Past Surgical History: Appendectomy, Back Surgery, Cholecystectomy, Heart Catheterization With Stent, Orthopedic Surgery Additional Past Surgical History / Comment(s): l4-5 fusion march 2020,l4-s1 fusion in 12/2021, carpel tunnnel release, vascectomy, skin graft knee surg x4, right hip surgery. lower bowel surgery, cholecystectomy 10/2022 Past Anesthesia/Blood Transfusion Reactions: No Reported Reaction Past Psychological History: Anxiety, Depression, PTSD Smoking Status: Former smoker Past Alcohol Use History: Occasional Past Drug Use History: None Reported - Past Family History Father Family Medical History: No Reported History Additional Family Medical History / Comment(s): Father is alive at age 61 was no major medical problems. Mother Family Medical History: No Reported History Additional Family Medical History / Comment(s): Mother is alive at age 56 with history of spinal surgeries and neurological disorders. one sister with no dale or medical problems. Patient has 1 son and 1 daughter with no major medical problems. General Exam - General Exam Comments Initial Comments: General: Appears in no acute distress. HEAD: Normal with no signs of head trauma. EYES: PERRLA, EOMI, conjunctiva normal, no discharge. Pupils are 3 mm equal bilaterally. ENT: Hearing grossly intact, normal oropharynx. RESPIRATORY: Clear breath sounds bilaterally. No wheezes, rales, or rhonchi. C/V: Regular rate and rhythm. S1 and S2 auscultated, peripheral pulses 2+ and intact throughout ABD: Abd is soft, nontender, nondistended EXT: Normal range of motion, no obvious deformity SKIN: No rashes or lesions observed on exposed skin. NEURO: Alert and oriented x 4. Cranial nerves II-XII intact. No focal sensory or strength deficits. GCS of 15. NIH of 0. Limitations: no limitations Course Vital Signs 04/26/23 23:28 Temperature 98 F Pulse Rate 93 Respiratory 18 Rate Blood Pressure 116/80 O2 Sat by Pulse 97 Oximetry Medical Decision Making - Medical Decision Making Was pt. sent in by a medical professional or institution ([facility] Muhammad, VALUE STREAM LEADER, urgent care, hospital, or group home...) When possible be specific @ -No Did you speak to anyone other than the patient for history (EMS, parent, family, police, friend...)? What history was obtained from this source @ -No Did you review nursing and triage notes (agree or disagree)? Why? @ -I reviewed and agree with nursing and triage notes Were old charts reviewed (outside hosp., previous admission, EMS record, old EKG, old radiological studies, urgent care reports/EKG's, group home records)? Report findings @ -Old charts reviewed from earlier this month. Differential Diagnosis (chest pain, altered mental status, abdominal pain women, abdominal pain men, vaginal bleeding, weakness, fever, dyspnea, syncope, headache, dizziness, GI bleed, back pain, seizure, CVA, palpatations, mental health, musculoskeletal)? @ -Differential Headache: Migraine, tension, cluster, carbon monoxide, central venous thrombosis, pension karma temporal arteritis, acute closure glaucoma, intercranial hemorrhage, mastoiditis, sinusitis, head injury, this is not meant to be an all-inclusive list. EKG interpreted by me (3pts min.). @ -None done X-rays interpreted by me (1pt min.). @ -None done CT interpreted by me (1pt min.). @ -CT brain reveals no obvious acute intracranial injury, process. U/S interpreted by me (1pt. min.). @ -None done What testing was considered but not performed or refused? (CT, X-rays, U/S, labs)? Why? @ -None What meds were considered but not given or refused? Why? @ -None Did you discuss the management of the patient with other professionals (professionals i.e. , PA, VALUE STREAM LEADER, lab, RT, psych nurse, high school social science teacher, live out nanny, teacher, officer captain, case management rn)? Give summary @ -No Was smoking cessation discussed for >3mins.? @ -No Was critical care preformed (if so, how long)? @ -No Were there social determinants of health that impacted care today? How? (Homelessness, low income, unemployed, alcoholism, drug addiction, transportation, low edu. Level, literacy, decrease access to med. care, longterm, rehab)? @ -No Was there de-escalation of care discussed even if they declined (Discuss DNR or withdrawal of care, Hospice)? DNR status @ -No What co-morbidities impacted this encounter? (DM, HTN, Smoking, COPD, CAD, Canc er, CVA, ARF, Chemo, Hep., AIDS, mental health diagnosis, sleep apnea, morbid obesity)? @ -None Was patient admitted / discharged? Hospital course, mention meds given and route, prescriptions, significant lab abnormalities, going to OR and other pertinent info. @ -Based on the patient's presentation and physical exam, presents once again for migraine headache. Does have a history of this. However, rule out other etiology at this time and this is the third revisit and multiple weeks. We'll obtain basic labs as well as a CT brain as he is on blood thinners and unknown if he had a significant head injury. He was in agreement this plan. Bowel sounds within acceptable limits. We will symptomatically treat the patient with IV Benadryl, morphine, Compazine, fluids. He was in agreement with this plan. Imaging is unremarkable. Labs are unremarkable. On reevaluation, patient's headache is improved. We discussed his results. He'll be discharged home as he does have close follow-up with his PCP. He was in agreement this plan. We'll provide him with a dose of IV steroids before Discharge. Discussed that his symptoms are likely secondary to his typical migraines. I instructed the patient to follow up with their PCP in the next 1-3 days. I explained that the patient should return to the emergency department if they experience any worsening symptoms. Strict return precautions were discussed with the patient. The patient expressed understanding of these instructions. I answered all questions that the patient had. The patient was discharged home in good condition with their prescriptions and follow up information. Undiagnosed new problem with uncertain prognosis? @ -No Drug Therapy requiring intensive monitoring for toxicity (Heparin, Nitro, Insulin, Cardizem)? @ -No Were any procedures done? @ -No Diagnosis/symptom? @ -Migraine Acute, or Chronic, or Acute on Chronic? @ -Acute on chronic Uncomplicated (without systemic symptoms) or Complicated (systemic symptoms)? @ -Uncomplicated Side effects of treatment? @ -none Exacerbation, Progression, or Severe Exacerbation] @ -no Poses a threat to life or bodily function? @ -no - Lab Data Result diagrams: 04/27/23 00:25 04/27/23 00:25 Lab Results 04/27/23 04/27/23 Range/Units 00:25 00:25 WBC 8.3 (3.8-10.6) k/uL RBC 4.63 (4.30-5.90) m/uL Hgb 14.2 (13.0-17.5) gm/dL Hct 41.7 (39.0-53.0) % MCV 90.0 (80.0-100.0) fL MCH 30.6 (25.0-35.0) pg MCHC 34.0 (31.0-37.0) g/dL RDW 12.4 (11.5-15.5) % Plt Count 224 (150-450) k/uL MPV 8.0 Sodium 138 (137-145) mmol/L Potassium 3.6 (3.5-5.1) mmol/L Chloride 106 (98-107) mmol/L Carbon Dioxide 23 (22-30) mmol/L Anion Gap 9 mmol/L BUN 21 H (9-20) mg/dL Creatinine 0.89 (0.66-1.25) mg/dL Est GFR (CKD-EPI)AfAm >90 (>60 ml/min/1.73 sqM) Est GFR (CKD-EPI)NonAf >90 (>60 ml/min/1.73 sqM) Glucose 113 H (74-99) mg/dL Calcium 9.3 (8.4-10.2) mg/dL Disposition Clinical Impression: Migraine Disposition: HOME SELF-CARE Condition: Good Instructions (If sedation given, give patient instructions): Acute Headache (ED) Is patient prescribed a controlled substance at d/c from ED?: No Referrals: None,Stated [Primary Care Provider] - 1-2 days Time of Disposition: 01:02
[2023-04-27 00:58] LABS: African American GFR (CKD) >90 (>60 ml/min/1.73 sqM); Anion Gap 9 mmol/L; Blood Urea Nitrogen 21 mg/dL (9-20); Calcium 9.3 mg/dL (8.4-10.2); Carbon Dioxide 23 mmol/L (22-30); Chloride 106 mmol/L (98-107); Glucose 113 mg/dL (74-99); Non-African American GFR(CKD) >90 (>60 ml/min/1.73 sqM); Potassium 3.6 mmol/L (3.5-5.1); Sodium 138 mmol/L (137-145)
--- NOTE | 2023-04-27 00:58 | CT ---
EXAM: CT Head Without Intravenous Contrast CLINICAL HISTORY: ITS.REASON CT Reason: migraines TECHNIQUE: Axial computed tomography images of the head/brain without intravenous contrast. CTDI is 49.1 mGy and DLP is 1260.4 mGy-cm. This CT exam was performed using one or more of the following dose reduction techniques: automated exposure control, adjustment of the mA and/or kV according to patient size, and/or use of iterative reconstruction technique. COMPARISON: CT head 04/27/23 FINDINGS: Brain: Unremarkable. No hemorrhage. No significant white matter disease. No edema. Conde-white matter differentiation maintained. Ventricles: Unremarkable. No hydrocephalus. Bones/joints: Unremarkable. No acute fracture. Soft tissues: Unremarkable. Sinuses: Chronic mucosal thickening right maxillary sinus and lateral aspect of the right frontal sinus. Mild mucosal thickening in the ethmoid air cells, similar to prior. Paranasal sinuses otherwise clear. Mastoid air cells: Unremarkable as visualized. No mastoid effusion. IMPRESSION: 1. No acute intracranial process. 2. Stable paranasal sinus disease.
[2023-04-27] MEDS ORDERED: MORPHINE SULFATE 4 MG/ML SYRINGE IVP STA (01:08)
[2023-04-27] MEDS ORDERED: methylPREDNISolone SOD SUCCI 40 MG/ML 1 ML VIAL IV STA (01:08)
[2023-04-27 01:29] VITALS: BP 128/80; PULSE 72; TEMP 98.2
== END 2023-04-27 01:29 | disposition home or self-care (01) ==
LOC: EC 23:14
DX: G43.909 Migraine, unspecified, not intractable, without status migrainosus (principal); I25.10 Atherosclerotic heart disease of native coronary artery without angina pectoris; F32.A Depression, unspecified; F41.9 Anxiety disorder, unspecified; Z79.01 Long term (current) use of anticoagulants; Z79.899 Other long term (current) drug therapy; Z86.718 Personal history of other venous thrombosis and embolism; Z87.891 Personal history of nicotine dependence; Z88.6 Allergy status to analgesic agent; Z88.8 Allergy status to other drugs, medicaments and biological substances; Z91.030 Bee allergy status
CPT/HCPCS: 36415; 70450; 80048; 85027; 96361; 96374; 96375; 96376; 99284

== ENCOUNTER → 2023-05-05 | Outpatient (CLI) | payer OTHER ==
--- NOTE | 2023-05-06 08:51 | CT ---
EXAMINATION TYPE: CT lumbar spine wo con DATE OF EXAM: 05/05/2023 COMPARISON: 03/22/2023 x-ray HISTORY: chronic low back pain CT DLP: 606 mGycm CONTRAST: None TECHNIQUE: CT of the lumbar spine is performed on a spiral scan at 3 mm thick sections. Reconstructed images are performed in the coronal and sagittal planes. FINDINGS: T11-T12: There is narrowing of the disc height. No focal disc herniation or significant disc bulge is evident. Mild endplate spurring in the left paracentral region as anterior thecal sac contact withou t stenosis. T12-L1: No focal disc herniation or significant disc bulge is evident. No spinal canal stenosis or neural foraminal stenosis is present. L1-L2: No focal disc herniation or significant disc bulge is evident. No spinal canal stenosis or n eural foraminal stenosis is present L2-L3: Broad-based disc bulge has anterior thecal sac flattening. No AP spinal canal stenosis is pres ent. Some mild facet hypertrophy is present. Mild right foraminal narrowing is present. L3-L4: Minimal disc bulge with anterior thecal sac contact. No AP spinal canal stenosis is present. T here is some ligamentum flavum laxity chest partial calcification. Mild to moderate bilateral forami nal narrowing. L4-L5: There is a mild grade 1 spondylolisthesis of L4 anteriorly on L5. Disc spacers present at L4-5 pedicle screws are present L4 and L5. Left paracentral spurring is present. Disc uncovering is prese nt with no AP spinal canal stenosis is present. There is been laminectomy. Severe left and moderate t o severe right foraminal narrowing is present. L5-S1: No focal disc herniation or significant disc bulge is evident. No spinal canal stenosis. Mod erate to severe foraminal narrowing may be present. Laminectomy has been performed. IMPRESSION: 1. Foraminal narrowing present bilaterally greatest L4-5 on the left. More moderate foraminal narrowi ng as discussed above. 2. Grade 1 spondylolisthesis L4 anterior on L5, stable from plain film comparison
== END | disposition home or self-care (01) ==
LOC: RADCTMAIN 16:25
PROVIDERS: ATTEND Neurological Surgery
DX: M43.16 Spondylolisthesis, lumbar region (principal); M99.73 Connective tissue and disc stenosis of intervertebral foramina of lumbar region; G89.29 Other chronic pain; Z98.1 Arthrodesis status
CPT/HCPCS: 72131

== ENCOUNTER 2023-08-02 22:46 | Emergency (ER) | payer MEDICARE, OTHER ==
[2023-08-02 23:20] VITALS: RESP 18; TEMP 98.6
--- NOTE | 2023-08-03 03:04 | XR ---
EXAM: XR Chest, 1 View CLINICAL HISTORY: ITS.REASON XR Reason: chest pain TECHNIQUE: Frontal view of the chest. COMPARISON: No relevant prior studies available. FINDINGS: Lungs: No consolidation or mass. Pleural space: No acute findings Heart: No cardiomegaly. Bones/joints: No acute findings. IMPRESSION: No acute cardiopulmonary process.
--- NOTE | 2023-08-03 03:14 | ED ---
Chest Pain HPI - General Chief Complaint: Chest Pain Stated Complaint: chest pain Time Seen by Provider: 08/03/23 00:36 Source: patient Mode of arrival: ambulatory Limitations: no limitations - History of Present Illness Initial Comments: 42-year-old male presents the ER today for evaluation of persistent chest pain. Patient reports that on of last week he had a stress test done [facility] [place]. Patient reports that on Wednesday he developed some retrosternal chest pain. Patient reports the pain is persistent since that time. Patient r eports there is no relieving factors but he does have some exacerbation with any activity. Pain doesn't seem to be associated with eating. Not associated with any diaphoresis, lightheadedness or shortness of breath. - Related Data Home Medications Medication Instructions Recorded Confirmed PARoxetine HCL [Paxil] 30 mg PO DAILY 08/22/19 02/18/23 traZODone HCL 150 mg PO HS 10/09/20 02/18/23 Prazosin HCl 6 mg PO HS 06/05/22 02/18/23 EPINEPHrine (Auto Inject) [Epipen] 0.3 mg IM ONCE PRN 10/16/22 02/18/23 Pantoprazole [Protonix] 40 mg PO AC-BID PRN 12/09/22 02/18/23 Apixaban [Eliquis] 5 mg PO BID 02/18/23 02/18/23 Atorvastatin [Lipitor] 10 mg PO HS 02/18/23 02/18/23 HYDROcodone/APAP 10-325MG [[place] 1 tab PO TID 02/18/23 02/18/23 10-325] Metoprolol Tartrate [Lopressor] 25 mg PO DAILY 02/18/23 02/18/23 methocarbamoL [Robaxin] 500 mg PO HS 02/18/23 02/18/23 Previous Rx's Medication Instructions Recorded Isosorbide Mononitrate ER [Imdur] 30 mg PO DAILY #30 tab 06/08/22 Acetaminophen Tab [Tylenol] 1,000 mg PO Q6H PRN #30 tab 04/03/23 Lidocaine 5% Patch [Lidoderm 5% 1 patch TOPICAL DAILY PRN #7 patch 04/03/23 Patch] Allergies Allergy/AdvReac Type Severity Reaction Status Date / Time ketorolac tromethamine Allergy Rash/Hives/Swelling Verified 08/02/23 23:13 [From Toradol] at injection site venom-honey bee Allergy Anaphylaxis Verified 08/02/23 23:13 [bee venom (honey bee)] droperidol AdvReac Nausea & Verified 08/02/23 23:13 Vomiting & Diarrhea naproxen AdvReac Nausea & Verified 08/02/23 23:13 Vomiting & Diarrhea Review of Systems ROS Statement: Those systems with pertinent positive or pertinent negative responses have been documented in the HPI. ROS Other: All systems not noted in ROS Statement are negative. EKG Findings - EKG Comments: EKG Findings:: EKG interpreted by me, EKG obtained due to complaint of chest pain, EKG obtained at 2257 rate is 83 rhythm is sinus with a right bundle branch block, no acute ST elevations or depressions, no evidence of acute ischemia or infarction. Right bundle branch block is not new. Past Medical History Past Medical History: Coronary Artery Disease (CAD), Deep Vein Thrombosis (DVT) Additional Past Medical History / Comment(s): chronic knee pain, back pain, RBBB, elevated heart rate. History of Any Multi-Drug Resistant Organisms: MRSA Date of last positivie culture/infection: 2008 MDRO Source:: thumb Past Surgical History: Appendectomy, Back Surgery, Cholecystectomy, Heart Catheterization With Stent, Orthopedic Surgery Additional Past Surgical History / Comment(s): l4-5 fusion march 2020,l4-s1 fusion in 12/2021, carpel tunnnel release, vascectomy, skin graft knee surg x4, right hip surgery. lower bowel surgery, cholecystectomy 10/2022 Past Anesthesia/Blood Transfusion Reactions: No Reported Reaction Past Psychological History: Anxiety, Depression, PTSD Smoking Status: Former smoker Past Alcohol Use History: Occasional Past Drug Use History: None Reported - Past Family History Father Family Medical History: No Reported History Additional Family Medical History / Comment(s): Father is alive at age 61 was no major medical problems. Mother Family Medical History: No Reported History Additional Family Medical History / Comment(s): Mother is alive at age 56 with history of spinal surgeries and neurological disorders. one sister with no major medical problems. Patient has 1 son and 1 daughter with no major medical problems. General Exam - General Exam Comments Initial Comments: Physical Exam GENERAL: Patient is well-developed and well-nourished. Patient is nontoxic and well- hydrated and is in no distress. HENT: Normocephalic, Atraumatic. EYES: PERRL, EOMI PULMONARY: Unlabored respirations. No audible rales rhonchi or wheezing was noted. CARDIOVASCULAR: There is a regular rate and rhythm without any murmurs gallops or rubs. ABDOMEN: Soft and nontender with normal bowel sounds. Well-healed surgical scar SKIN: Skin is clear with no lesions or rashes and otherwise unremarkable. : Deferred NEUROLOGIC: Patient is alert and oriented x3. Moving all extremities spontaneously MUSCULOSKELETAL: Normal extremities with adequate strength and full range of motion. No lower extremity swelling or edema. No calf tenderness. PSYCHIATRIC: Normal psychiatric evaluation. Limitations: no limitations Course Vital Signs 08/02/23 08/03/23 23:11 05:28 Temperature 98.6 F Pulse Rate 86 83 Respiratory 18 18 Rate Blood Pressure 116/79 118/78 O2 Sat by Pulse 97 100 Oximetry Chest Pain MDM - MDM Was pt. sent in by a medical professional or institution (, PA, SOLE CONFORMING MACHINE OPERATOR, urgent care, hospital, or long-term...) When possible be specific @ -No Did you speak to anyone other than the patient for history (EMS, parent, family, police, friend...)? What history was obtained from this source @ -No Did you review nursing and triage notes (agree or disagree)? Why? @ -I reviewed and agree with nursing and triage notes Were old charts reviewed (outside hosp., previous admission, EMS record, old EKG, old radiological studies, urgent care reports/EKG's, long-term records)? Report findings @ -Previous ER visits were reviewed Differential Diagnosis (chest pain, altered mental status, abdominal pain women, abdominal pain men, vaginal bleeding, weakness, fever, dyspnea, syncope, headache, dizziness, GI bleed, back pain, seizure, CVA, palpatations, mental health, musculoskeletal)? @ -Differential Chest Pain: Stable Angina, Unstable Angina, STEMI, NSTEMI Aortic Dissection, Pneumothorax, Musculoskeletal, Esophageal Spasm GERD, Cholecystitis, Pancreatitis, Zoster, this is not meant to be an all-inclusive list. EKG interpreted by me (3pts min.). @ -As above X-rays interpreted by me (1pt min.). @ -No pneumothorax, no acute abnormality CT interpreted by me (1pt min.). @ -None done U/S interpreted by me (1pt. min.). @ -None done What testing was considered but not performed or refused? (CT, X-rays, U/S, labs)? Why? @ -None What meds were considered but not given or refused? Why? @ -None Did you discuss the management of the patient with other professionals (professionals i.e. Dr., PA, SOLE CONFORMING MACHINE OPERATOR, lab, RT, psych nurse, transition social worker, nuclear radiologist, teacher, conservation enforcement officer, adult protective caseworker)? Give summary @ -No Was smoking cessation discussed for >3mins.? @ -No Was critical care preformed (if so, how long)? @ -No Were there social determinants of health that impacted care today? How? (Homelessness, low income, unemployed, alcoholism, drug addiction, transportation, low edu. Level, literacy, decrease access to med. care, longterm, rehab)? @ -No Was there de-escalation of care discussed even if they declined (Discuss DNR or withdrawal of care, Hospice)? DNR status @ -No What co-morbidities impacted this encounter? (DM, HTN, Smoking, COPD, CAD, Cancer, CVA, ARF, Chemo, Hep., AIDS, mental health diagnosis, sleep apnea, morbid obesity)? @ -Hypertension, hyperlipidemia, CAD Was patient admitted / discharged? Hospital course, mention meds given and route, prescriptions, significant lab abnormalities, going to OR and other pertinent info. @ -Discharge The patient was seen and evaluated history is obtained from patient. Patient with 4 days of persistent constant chest pain. No significant exacerbating or relieving factors. No diaphoresis shortness of breath or lightheadedness. EKG was unchanged from previous. Chest x-ray unremarkable, labs unremarkable, Troponin negative despite 4 days of symptoms - given these findings I do not feel pain is related to ACS. Patient to follow up with primary care and cardiology as planned Undiagnosed new problem with uncertain prognosis? @ -No Drug Therapy requiring intensive monitoring for toxicity (Heparin, Nitro, Insulin, Cardizem)? @ -No Were any procedures done? @ -No Diagnosis/symptom? @ -Noncardiac chest pain Acute, or Chronic, or Acute on Chronic? @ -default Uncomplicated (without systemic symptoms) or Complicated (systemic symptoms)? @ -default Side effects of treatment? @ -No Exacerbation, Progression, or Severe Exacerbation? @ -No Poses a threat to life or bodily function? How? (Chest pain, [place], [place], pneumonia, PE, COPD, DKA, ARF, appy, cholecystitis, CVA, Diverticulitis, Homicidal, Suicidal, threat to staff... and all critical care pts) @ -No Disposition Clinical Impression: Non-cardiac chest pain Disposition: HOME SELF-CARE Condition: Stable Instructions (If sedation given, give patient instructions): Chest Pain (ED) Is patient prescribed a controlled substance at d/c from ED?: No Referrals: Xavier Reeder MD [Primary Care Provider] - 1-2 days
[2023-08-03 03:22] LABS: Basophils # (A) 0.1 k/uL (0-0.2); Basophils % (A) 1 %; Eosinophils # (A) 0.3 k/uL (0-0.7); Eosinophils % (A) 4 %; HCT 40.8 % (39.0-53.0); HGB 14.1 gm/dL (13.0-17.5); Lymphocytes % (A) 41 %; MCH 31.6 pg (25.0-35.0); MCHC 34.7 g/dL (31.0-37.0); MCV 91.1 fL (80.0-100.0); Mean Platelet Volume 8.2; Monocytes # (A) 0.4 k/uL (0-1.0); Monocytes % (A) 6 %; Neutrophils # (A) 3.4 k/uL (1.3-7.7); Neutrophils % (A) 46 %; Platelet Count 228 k/uL (150-450); RBC 4.48 m/uL (4.30-5.90); RDW 13.5 % (11.5-15.5); WBC 7.4 k/uL (3.8-10.6)
[2023-08-03 03:32] LABS: ALT 43 U/L (4-49); AST 31 U/L (17-59); African American GFR (CKD) 81 (>60 ml/min/1.73 sqM); Albumin 4.7 g/dL (3.5-5.0); Alkaline Phosphatase 71 U/L (38-126); Anion Gap 13 mmol/L; Blood Urea Nitrogen 24 mg/dL (9-20); Calcium 9.8 mg/dL (8.4-10.2); Carbon Dioxide 22 mmol/L (22-30); Chloride 107 mmol/L (98-107); Glucose 90 mg/dL (74-99); Lipase 99 U/L (23-300); Non-African American GFR(CKD) 70 (>60 ml/min/1.73 sqM); Sodium 142 mmol/L (137-145); Total Bilirubin 0.5 mg/dL (0.2-1.3); Total Protein 7.8 g/dL (6.3-8.2)
[2023-08-03] MEDS ORDERED: SODIUM CHLORIDE 0.9% 1,000 ML IV ONE (03:57)
[2023-08-03 04:13] LABS: Prothrombin Time 10.2 sec (9.0-12.0)
[2023-08-03 05:38] VITALS: BP 118/78; PULSE 83
== END 2023-08-03 05:29 | disposition home or self-care (01) ==
LOC: EC 22:46
DX: I45.10 Unspecified right bundle-branch block (principal); I25.10 Atherosclerotic heart disease of native coronary artery without angina pectoris; Z79.01 Long term (current) use of anticoagulants; Z87.891 Personal history of nicotine dependence; Z88.6 Allergy status to analgesic agent; Z91.030 Bee allergy status; Z88.8 Allergy status to other drugs, medicaments and biological substances; Z90.49 Acquired absence of other specified parts of digestive tract; Z86.59 Personal history of other mental and behavioral disorders
CPT/HCPCS: 36415; 71045; 80053; 83690; 83735; 84484; 85025; 85610; 85730; 93005; 96360; 99285

== ENCOUNTER 2023-08-08 22:11 | Emergency (ER) | payer OTHER ==
--- NOTE | 2023-08-08 23:29 | ED ---
General Adult HPI - General Chief complaint: Abdominal Pain Stated complaint: Abdominal Pain Time Seen by Provider: 08/08/23 23:17 Source: patient, RN notes reviewed, old records reviewed Mode of arrival: ambulatory Limitations: no limitations - History of Present Illness Initial comments: 42-year-old male with chief complaint of diarrhea this been an ongoing issue for this patient for many months. He states about 30 minutes after eating he develops diarrhea. He has been taking Imodium with only some relief. He denies fever. He reports some left lower quadrant abdominal pain associated with the diarrhea. No vomiting. No fever. - Related Data Home Medications Medication Instructions Recorded Confirmed PARoxetine HCL [Paxil] 30 mg PO DAILY 08/22/19 02/18/23 traZODone HCL 150 mg PO HS 10/09/20 02/18/23 Prazosin HCl 6 mg PO HS 06/05/22 02/18/23 EPINEPHrine (Auto Inject) [Epipen] 0.3 mg IM ONCE PRN 10/16/22 02/18/23 Pantoprazole [Protonix] 40 mg PO AC-BID PRN 12/09/22 02/18/23 Apixaban [Eliquis] 5 mg PO BID 02/18/23 02/18/23 Atorvastatin [Lipitor] 10 mg PO HS 02/18/23 02/18/23 HYDROcodone/APAP 10-325MG [[place] 1 tab PO TID 02/18/23 02/18/23 10-325] Metoprolol Tartrate [Lopressor] 25 mg PO DAILY 02/18/23 02/18/23 methocarbamoL [Robaxin] 500 mg PO HS 02/18/23 02/18/23 Previous Rx's Medication Instructions Recorded Isosorbide Mononitrate ER [Imdur] 30 mg PO DAILY #30 tab 06/08/22 Acetaminophen Tab [Tylenol] 1,000 mg PO Q6H PRN #30 tab 04/03/23 Lidocaine 5% Patch [Lidoderm 5% 1 patch TOPICAL DAILY PRN #7 patch 04/03/23 Patch] Allergies Allergy/AdvReac Type Severity Reaction Status Date / Time ketorolac tromethamine Allergy Rash/Hives/Swelling Verified 08/08/23 22:36 [From Toradol] at injection site venom-honey bee Allergy Anaphylaxis Verified 08/08/23 22:36 [bee venom (honey bee)] droperidol AdvReac Nausea & Verified 08/08/23 22:36 Vomiting & Diarrhea naproxen AdvReac Nausea & Verified 08/08/23 22:36 Vomiting & Diarrhea Review of Systems ROS Statement: Those systems with pertinent positive or pertinent negative responses have been documented in the HPI. ROS Other: All systems not noted in ROS Statement are negative. Past Medical History Past Medical History: Coronary Artery Disease (CAD), Deep Vein Thrombosis (DVT) Additional Past Medical History / Comment(s): chronic knee pain, back pain, RBBB, elevated heart rate. History of Any Multi-Drug Resistant Organisms: MRSA Date of last positivie culture/infection: 2008 MDRO Source:: thumb Past Surgical History: Appendectomy, Back Surgery, Cholecystectomy, Heart Catheterization With Stent, Orthopedic Surgery Additional Past Surgical History / Comment(s): l4-5 fusion march 2020,l4-s1 fusion in 12/2021, carpel tunnnel release, vascectomy, skin graft knee surg x4, right hip surgery. lower bowel surgery, cholecystectomy 10/2022 Past Anesthesia/Blood Transfusion Reactions: No Reported Reaction Past Psychological History: Anxiety, Depression, PTSD Smoking Status: Former smoker Past Alcohol Use History: Occasional Past Drug Use History: None Reported - Past Family History Father Family Medical History: No Reported History Additional Family Medical History / Comment(s): Father is alive at age 61 was no major medical problems. Mother Family Medical History: No Reported History Additional Family Medical History / Comment(s): Mother is alive at age 56 with history of spinal surgeries and neurological disorders. one sister with no major medical problems. Patient has 1 son and 1 daughter with no major medical problems. General Exam Limitations: no limitations General appearance: alert, in no apparent distress Head exam: Present: atraumatic, normocephalic Eye exam: Present: normal appearance, PERRL ENT exam: Present: mucous membranes moist Neck exam: Present: normal inspection. Absent: tenderness, meningismus Respiratory exam: Present: normal lung sounds bilaterally. Absent: respiratory distress, wheezes Cardiovascular Exam: Present: regular rate, normal rhythm GI/Abdominal exam: Present: soft, tenderness (Minor left lower quadrant tenderness). Absent: distended, guarding, rebound, rigid Extremities exam: Present: normal inspection, normal capillary refill Neurological exam: Present: alert, oriented X3, CN II-XII intact. Absent: motor sensory deficit Psychiatric exam: Present: normal affect, normal mood Skin exam: Present: warm, dry, intact. Absent: cyanosis, diaphoretic Course Vital Signs 08/08/23 22:34 Temperature 97.9 F Pulse Rate 85 Respiratory 20 Rate Blood Pressure 117/82 O2 Sat by Pulse 100 Oximetry Medical Decision Making - Medical Decision Making Was pt. sent in by a medical professional or institution (, COLTON, LINER WORKER, urgent care, hospital, or penitentiary...) When possible be specific @ -No Did you speak to anyone other than the patient for history (EMS, parent, family, police, friend...)? What history was obtained from this source @ -No Did you review nursing and triage notes (agree or disagree)? Why? @ -I reviewed and agree with nursing and triage notes Were old charts reviewed (outside hosp., previous admission, EMS record, old EKG, old radiological studies, urgent care reports/EKG's, penitentiary records)? Report findings @ -No old charts were reviewed Differential Diagnosis (chest pain, altered mental status, abdominal pain women, abdominal pain men, vaginal bleeding, weakness, fever, dyspnea, syncope, headache, dizziness, GI bleed, back pain, seizure, CVA, palpatations, mental health, musculoskeletal)? @ -not applicable EKG interpreted by me (3pts min.). @ -As above X-rays interpreted by me (1pt min.). @ -[X-ray negative for obstruction or intraperitoneal free air CT interpreted by me (1pt min.). @ -None done U/S interpreted by me (1pt. min.). @ -None done What testing was considered but not performed or refused? (CT, X-rays, U/S, labs)? Why? @ -None What meds were considered but not given or refused? Why? @ -None Did you discuss the management of the patient with other professionals (professionals i.e. COLTON Muhammad, LINER WORKER, lab, RT, psych nurse, nursing home social worker, broom stitcher, teacher, transportation security officer, casey saw operator)? Give summary @ -No Was smoking cessation discussed for >3mins.? @ -No Was critical care preformed (if so, how long)? @ -No Were there social determinants of health that impacted care today? How? (Homelessness, low income, unemployed, alcoholism, drug addiction, transportation, low edu. Level, literacy, decrease access to med. care, longterm, rehab)? @ -No Was there de-escalation of care discussed even if they declined (Discuss DNR or withdrawal of care, Hospice)? DNR status @ -No What co-morbidities impacted this encounter? (DM, HTN, Smoking, COPD, CAD, Cancer, CVA, ARF, Chemo, Hep., AIDS, mental health diagnosis, sleep apnea, morbid obesity)? @ -Chronic abdominal pain and chronic diarrhea Was patient admitted / discharged? Hospital course, mention meds given and route, prescriptions, significant lab abnormalities, going to OR and other pertinent info. @ -[42-year-old male with chronic diarrhea. Patient is on [place] and Imodium. He appears well-hydrated. He has stable vitals. His x-rays nonobstructive. I do feel he is stable for outpatient evaluation of this chronic issue. Undiagnosed new problem with uncertain prognosis? @ -No Drug Therapy requiring intensive monitoring for toxicity (Heparin, Nitro, Insulin, Cardizem)? @ -No Were any procedures done? @ -No Diagnosis/symptom? @ -[Diarrhea Acute, or Chronic, or Acute on Chronic? @ Chronic Uncomplicated (without systemic symptoms) or Complicated (systemic symptoms)? @ -default Side effects of treatment? @ -No Exacerbation, Progression, or Severe Exacerbation? @ -No Poses a threat to life or bodily function? How? (Chest pain, [place], [place], pneumonia, PE, COPD, DKA, ARF, appy, cholecystitis, CVA, Diverticulitis, Homicidal, Suic idal, threat to staff... and all critical care pts) @ -No Disposition Clinical Impression: Abdominal pain, Diarrhea Disposition: HOME SELF-CARE Condition: Good Instructions (If sedation given, give patient instructions): Abdominal Pain (ED), Chronic Diarrhea (ED) Is patient prescribed a controlled substance at d/c from ED?: No Referrals: Xavier Reeder MD [Primary Care Provider] - 1-2 days Yoli Lyons DO [REFERRING] - 1-2 days Samantha Mustafa MD [STAFF PHYSICIAN] - 1-2 days Time of Disposition: 23:29
[2023-08-09] MEDS ORDERED: MORPHINE SULFATE 4 MG/ML SYRINGE IM STA (00:05)
[2023-08-09 00:44] VITALS: BP 128/88; PULSE 89; RESP 18; TEMP 98.4
--- NOTE | 2023-08-09 06:11 | XR ---
EXAM: XR Abdomen, 1 View and XR Chest, 1 View CLINICAL HISTORY: ITS.REASON XR Reason: abd pain TECHNIQUE: Frontal view of the chest and abdomen/pelvis. COMPARISON: No relevant prior studies available. FINDINGS: Lungs: Unremarkable. No consolidation. Pleural space: Unremarkable. No pneumothorax. Heart: Unremarkable. No cardiomegaly. Mediastinum: Unremarkable. Intraperitoneal space: No free air. Gastrointestinal tract: Unremarkable. No dilation. Bones/joints: Postoperative changes of the lower lumbar spine. IMPRESSION: Normal chest and abdomen/pelvis x-rays.
== END 2023-08-09 00:30 | disposition home or self-care (01) ==
LOC: EC 22:11
DX: R19.7 Diarrhea, unspecified (principal); R10.32 Left lower quadrant pain; I25.10 Atherosclerotic heart disease of native coronary artery without angina pectoris; F41.9 Anxiety disorder, unspecified; F32.A Depression, unspecified; Z79.01 Long term (current) use of anticoagulants; Z79.899 Other long term (current) drug therapy; Z87.891 Personal history of nicotine dependence; Z88.6 Allergy status to analgesic agent; Z88.8 Allergy status to other drugs, medicaments and biological substances; Z91.030 Bee allergy status; Z90.49 Acquired absence of other specified parts of digestive tract
CPT/HCPCS: 74018; 99284; 96372; J2270

== ENCOUNTER 2023-08-11 23:08 | Emergency (ER) | payer OTHER ==
--- NOTE | 2023-08-12 00:37 | ED ---
Abdominal Pain HPI - General Source: patient, RN notes reviewed Mode of arrival: ambulatory Limitations: no limitations <Jackie Soria - Last Filed: 08/12/23 00:36> - General Source: patient, RN notes reviewed, old records reviewed <Krzysztof Cruz - Last Filed: 08/12/23 07:25> - General Chief Complaint: Abdominal Pain Stated Complaint: Abd pain Time Seen by Provider: 08/12/23 00:36 - History of Present Illness Initial Comments: Patient is a 42 year old male who presents to the emergency department for abdominal pain. (Jackie Soria) Patient is a 42-year-old male presents emergency department complaining of abdominal pain. He was seen as a quick no. Is a history of abdominal pain as well as intra-abdominal surgeries as well as an abdominal hernia. States pain has been ongoing for the last 2 days. Endorses decreased flatus as well as bowel movements. Denies nausea or vomiting. His no other acute complaints at this time. Pain is primarily umbilical as well as left lower quadrant. No guarding. No radiation. Presents for further evaluation. Denies urinary complaints. (Krzysztof Cruz) - Related Data Home Medications Medication Instructions Recorded Confirmed PARoxetine HCL [Paxil] 30 mg PO DAILY 08/22/19 02/18/23 traZODone HCL 150 mg PO HS 10/09/20 02/18/23 Prazosin HCl 6 mg PO HS 06/05/22 02/18/23 EPINEPHrine (Auto Inject) [Epipen] 0.3 mg IM ONCE PRN 10/16/22 02/18/23 Pantoprazole [Protonix] 40 mg PO AC-BID PRN 12/09/22 02/18/23 Apixaban [Eliquis] 5 mg PO BID 02/18/23 02/18/23 Atorvastatin [Lipitor] 10 mg PO HS 02/18/23 02/18/23 HYDROcodone/APAP 10-325MG [Avalon 1 tab PO TID 02/18/23 02/18/23 10-325] Metoprolol Tartrate [Lopressor] 25 mg PO DAILY 02/18/23 02/18/23 methocarbamoL [Robaxin] 500 mg PO HS 02/18/23 02/18/23 Previous Rx's Medication Instructions Recorded Isosorbide Mononitrate ER [Imdur] 30 mg PO DAILY #30 tab 08/08/22 Acetaminophen Tab [Tylenol] 1,000 mg PO Q6H PRN #30 tab 04/03/23 Lidocaine 5% Patch [Lidoderm 5% 1 patch TOPICAL DAILY PRN #7 patch 04/03/23 Patch] Dicyclomine [Bentyl] 10 mg PO TID PRN 7 Days #21 capsule 08/12/23 Allergies Allergy/AdvReac Type Severity Reaction Status Date / Time ketorolac tromethamine Allergy Rash/Hives/Swelling Verified 08/08/23 22:36 [From Toradol] at injection site venom-honey bee Allergy Anaphylaxis Verified 08/08/23 22:36 [bee venom (honey bee)] droperidol AdvReac Nausea & Verified 08/08/23 22:36 Vomiting & Diarrhea naproxen AdvReac Nausea & Verified 08/08/23 22:36 Vomiting & Diarrhea Review of Systems ROS Other: All systems not noted in ROS Statement are negative. <Jackie Soria - Last Filed: 08/12/23 00:36> ROS Other: All systems not noted in ROS Statement are negative. <Krzysztof Cruz - Last Filed: 08/12/23 07:25> ROS Statement: Those systems with pertinent positive or pertinent negative responses have been documented in the HPI. Review of Systems: CONST: Denies fever EYES: Denies blurry vision ENT: Denies nasal congestion C/V: Denies Chest pain RESP: Denies shortness of breath GI: Endorses abdominal pain : Denies dysuria SKIN: Denies rash. MSK: Denies joint pain. NEURO: Denies headache (Krzysztof Cruz) Past Medical History Past Medical History: Coronary Artery Disease (CAD), Deep Vein Thrombosis (DVT) Additional Past Medical History / Comment(s): chronic knee pain, back pain, RBBB, elevated heart rate. History of Any Multi-Drug Resistant Organisms: MRSA Date of last positivie culture/infection: 2008 MDRO Source:: thumb Past Surgical History: Appendectomy, Back Surgery, Cholecystectomy, Heart Catheterization With Stent, Orthopedic Surgery Additional Past Surgical History / Comment(s): l4-5 fusion march 2020,l4-s1 fusion in 12/2021, carpel tunnnel release, vascectomy, skin graft knee surg x4, right hip surgery. lower bowel surgery, cholecystectomy 10/2022 Past Anesthesia/Blood Transfusion Reactions: No Reported Reaction Past Psychological History: Anxiety, Depression, PTSD Smoking Status: Former smoker Past Alcohol Use History: Occasional Past Drug Use History: None Reported - Past Family History Father Family Medical History: No Reported History Additional Family Medical History / Comment(s): Father is alive at age 61 was no major medical problems. Mother Family Medical History: No Reported History Additional Family Medical History / Comment(s): Mother is alive at age 56 with history of spinal surgeries and neurological disorders. one sister with no major medical problems. Patient has 1 son and 1 daughter with no major medical problems. <Jackie Soria - Last Filed: 08/12/23 00:36> General Exam Limitations: no limitations <Jackie Soria - Last Filed: 08/12/23 00:36> <Krzysztof Cruz - Last Filed: 08/12/23 07:25> - General Exam Comments Initial Comments: Visual Physical Exam Vital signs reviewed General: Well-appearing, nontoxic, no acute distress. Head: Normocephalic, atraumatic Eyes: PERRLA, EOMI ENT: Airway patent Chest: Nonlabored breathing Skin: No visual rash, normal skin tone Neuro: Alert and oriented 3 Musculoskeletal: No gross abnormalities (Jackie Soria) General: Appears in no acute distress. HEAD: Normal with no signs of head trauma. EYES: PERRLA, EOMI, conjunctiva normal, no discharge. ENT: Hearing grossly intact, normal oropharynx. RESPIRATORY: Clear breath sounds bilaterally. No wheezes, rales, or rhonchi. C/V: Regular rate and rhythm. S1 and S2 auscultated, no edema, peripheral pulses 2+ and intact throughout ABD: Soft, Nondistended. Patient Has a Soft Hernia Located in the Anterior Abdominal Wall. Does Not Appear Strangulated. No Skin Changes. No Guarding. No rebound tenderness. No peritoneal signs. EXT: Normal range of motion, no obvious deformity SKIN: No rashes or lesions observed on exposed skin. NEURO: Alert and oriented 4. (Krzysztof Cruz) Course Vital Signs 08/12/23 08/12/23 00:06 03:35 Temperature 97.9 F 98.0 F Pulse Rate 96 71 Respiratory 18 18 Rate Blood Pressure 113/73 121/86 O2 Sat by Pulse 98 100 Oximetry Medical Decision Making <Jackie Soria - Last Filed: 08/12/23 00:36> - Lab Data Result diagrams: 08/12/23 01:11 08/12/23 01:11 <Krzysztof Cruz - Last Filed: 08/12/23 07:25> - Medical Decision Making I performed the QuickNote portion of this chart - Jackie Soria PA-C (Jackie Soria) Was pt. sent in by a medical professional or institution (COLTON Muhammad, STUDENT OUTREACH COORDINATOR, urgent care, hospital, or alf...) When possible be specific @ -No Did you speak to anyone other than the patient for history (EMS, parent, family, police, friend...)? What history was obtained from this source @ -No Did you review nursing and triage notes (agree or disagree)? Why? @ -I reviewed and agree with nursing and triage notes Were old charts reviewed (outside hosp., previous admission, EMS record, old EKG, old radiological studies, urgent care reports/EKG's, alf records)? Report findings @ -Old charts reviewed Differential Diagnosis (chest pain, altered mental status, abdominal pain women, abdominal pain men, vaginal bleeding, weakness, fever, dyspnea, syncope, headache, dizziness, GI bleed, back pain, seizure, CVA, palpatations, mental health, musculoskeletal)? @ -Differential Abdominal Pain Men: Appendicitis, cholecystitis, diverticulosis, ischemic bowel, pancreatitis, hepatitis, UTI, gastroenteritis, AAA, incarcerated hernia, bowel obstruction, constipation, inflammatory bowel, hepatitis, peptic ulcer disease, splenic infa rction, perforated viscus, testicular torsion, this is not meant to be an all- inclusive list EKG interpreted by me (3pts min.). @ -None done X-rays interpreted by me (1pt min.). @ -None done CT interpreted by me (1pt min.). @ -CT abdomen and pelvis reveals enteritis but no evidence of small bowel obstruction or other obvious acute intrapelvic process. There is hernias are present. Not Acute. U/S interpreted by me (1pt. min.). @ -None done What testing was considered but not performed or refused? (CT, X-rays, U/S, labs)? Why? @ -None What meds were considered but not given or refused? Why? @ -None Did you discuss the management of the patient with other professionals (professionals i.e. , PA, STUDENT OUTREACH COORDINATOR, lab, RT, psych nurse, health and social care teacher, director of family service center, teacher, jail officer, rifle case repairer)? Give summary @ -No Was smoking cessation discussed for >3mins.? @ -No Was critical care preformed (if so, how long)? @ -No Were there social determinants of health that impacted care today? How? (Homelessness, low income, unemployed, alcoholism, drug addiction, transportation, low edu. Level, literacy, decrease access to med. care, care home, rehab)? @ -No Was there de-escalation of care discussed even if they declined (Discuss DNR or withdrawal of care, Hospice)? DNR status @ -No What co-morbidities impacted this encounter? (DM, HTN, Smoking, COPD, CAD, Cancer, CVA, ARF, Chemo, Hep., AIDS, mental health diagnosis, sleep apnea, morbid obesity)? @ -None Was patient admitted / discharged? Hospital course, mention meds given and route, prescriptions, significant lab abnormalities, going to OR and other pertinent info. @ -Based on patient's presentation and physical exam, I'm concerned for acute intra-abdominal process. We will obtain abdominal laboratory studies as well as CT imaging. Patient already received workup and labs were unremarkable. This includes a normal lactic acid. He'll be given symptomatic treatment with IV fluids, morphine, Zofran. CT imaging will be obtained. After long wait, CT imaging was obtained and interpreted as revealing enteritis without any obvious acute intra-abdominal process. I updated the patient. He expressed understanding. He'll be discharged home at this time. Discussed strict return precautions. I will provide the patient with a prescription for Bentyl. I instructed the patient to follow up with their PCP in the next 1-3 days. I explained that the patient should return to the emergency department if they experience any worsening symptoms. Strict return precautions were discussed with the patient. The patient expressed understanding of these instructions. I answered all questions that the patient had. The patient was discharged home in good condition with their prescriptions and follow up information. Undiagnosed new problem with uncertain prognosis? @ -No Drug Therapy requiring intensive monitoring for toxicity (Heparin, Nitro, Insulin, Cardizem)? @ -No Were any procedures done? @ -No Diagnosis/symptom? @ -Abdominal pain likely secondary to enteritis Acute, or Chronic, or Acute on Chronic? @ -Acute Uncomplicated (without systemic symptoms) or Complicated (systemic symptoms)? @ -Uncomplicated Side effects of treatment? @ -No Exacerbation, Progression, or Severe Exacerbation? @ -No Poses a threat to life or bodily function? How? (Chest pain, USA, IA, pneumonia, PE, COPD, DKA, ARF, appy, cholecystitis, CVA, Diverticulitis, Homicidal, Suicidal, threat to staff... and all critical care pts) @ -No (Krzysztof Cruz) - Lab Data Lab Results 08/12/23 08/12/23 08/12/23 Range/Units 01:11 01:11 01:11 WBC 9.1 (3.8-10.6) k/uL RBC 4.32 (4.30-5.90) m/uL Hgb 13.9 (13.0-17.5) gm/dL Hct 39.0 (39.0-53.0) % MCV 90.3 (80.0-100.0) fL MCH 32.2 (25.0-35.0) pg MCHC 35.6 (31.0-37.0) g/dL RDW 13.1 (11.5-15.5) % Plt Count 230 (150-450) k/uL MPV 8.4 Neutrophils % 48 % Lymphocytes % 39 % Monocytes % 7 % Eosinophils % 3 % Basophils % 1 % Neutrophils # 4.4 (1.3-7.7) k/uL Lymphocytes # 3.5 (1.0-4.8) k/uL Monocytes # 0.6 (0-1.0) k/uL Eosinophils # 0.3 (0-0.7) k/uL Basophils # 0.1 (0-0.2) k/uL Sodium 140 (137-145) mmol/L Potassium 3.7 (3.5-5.1) mmol/L Chloride 107 (98-107) mmol/L Carbon Dioxide 19 L (22-30) mmol/L Anion Gap 14 mmol/L BUN 20 (9-20) mg/dL Creatinine 1.03 (0.66-1.25) mg/dL Est GFR (CKD-EPI)AfAm >90 (>60 ml/min/1.73 sqM) Est GFR (CKD-EPI)NonAf >90 (>60 ml/min/1.73 sqM) Glucose 93 (74-99) mg/dL Plasma Lactic Acid Landen 1.2 (0.7-2.0) mmol/L Calcium 10.0 (8.4-10.2) mg/dL Total Bilirubin 0.4 (0.2-1.3) mg/dL AST 38 (17-59) U/L ALT 72 H (4-49) U/L Alkaline Phosphatase 71 (38-126) U/L Total Protein 7.4 (6.3-8.2) g/dL Albumin 4.6 (3.5-5.0) g/dL Lipase 203 (23-300) U/L Urine Color Urine Appearance (Clear) Urine pH (5.0-8.0) Ur Specific [place] (1.001-1.035) Urine Protein (Negative) Urine Glucose (UA) (Negative) Urine Ketones (Negative) Urine Blood (Negative) Urine Nitrite (Negative) Urine Bilirubin (Negative) Urine Urobilinogen (<2.0) mg/dL Ur Leukocyte Esterase (Negative) 08/12/23 Range/Units 04:08 WBC (3.8-10.6) k/uL RBC (4.30-5.90) m/uL Hgb (13.0-17.5) gm/dL Hct (39.0-53.0) % MCV (80.0-100.0) fL MCH (25.0-35.0) pg MCHC (31.0-37.0) g/dL RDW (11.5-15.5) % Plt Count (150-450) k/uL MPV Neutrophils % % Lymphocytes % % Monocytes % % Eosinophils % % Basophils % % Neutrophils # (1.3-7.7) k/uL Lymphocytes # (1.0-4.8) k/uL Monocytes # (0-1.0) k/uL Eosinophils # (0-0.7) k/uL Basophils # (0-0.2) k/uL Sodium (137-145) mmol/L Potassium (3.5-5.1) mmol/L Chloride (98-107) mmol/L Carbon Dioxide (22-30) mmol/L Anion Gap mmol/L BUN (9-20) mg/dL Creatinine (0.66-1.25) mg/dL Est GFR (CKD-EPI)AfAm (>60 ml/min/1.73 sqM) Est GFR (CKD-EPI)NonAf (>60 ml/min/1.73 sqM) Glucose (74-99) mg/dL Plasma Lactic Acid [place] (0.7-2.0) mmol/L Calcium (8.4-10.2) mg/dL Total Bilirubin (0.2-1.3) mg/dL AST (17-59) U/L ALT (4-49) U/L Alkaline Phosphatase (38-126) U/L Total Protein (6.3-8.2) g/dL Albumin (3.5-5.0) g/dL Lipase (23-300) U/L Urine Color Yellow Urine Appearance Clear (Clear) Urine pH 6.0 (5.0-8.0) Ur Specific [place] 1.030 (1.001-1.035) Urine Protein Trace H (Negative) Urine Glucose (UA) Negative (Negative) Urine Ketones Negative (Negative) Urine Blood Negative (Negative) Urine Nitrite Negative (Negative) Urine Bilirubin Negative (Negative) Urine Urobilinogen 6.0 (<2.0) mg/dL Ur Leukocyte Esterase Negative (Negative) Disposition <Jackie Soria - Last Filed: 08/12/23 00:36> Is patient prescribed a controlled substance at d/c from ED?: No Time of Disposition: 07:22 <Krzysztof Cruz - Last Filed: 08/12/23 07:25> Clinical Impression: Abdominal pain, Enteritis Disposition: HOME SELF-CARE Condition: Fair Instructions (If sedation given, give patient instructions): Abdominal Pain (ED), Enteritis (ED) Prescriptions: Dicyclomine [Bentyl] 10 mg PO TID PRN 7 Days #21 capsule PRN Reason: Pain Referrals: Xavier Reeder MD [Primary Care Provider] - 1-2 days
[2023-08-12 01:26] LABS: Basophils # (A) 0.1 k/uL (0-0.2); Basophils % (A) 1 %; Eosinophils # (A) 0.3 k/uL (0-0.7); Eosinophils % (A) 3 %; HGB 13.9 gm/dL (13.0-17.5); Lymphocytes # (A) 3.5 k/uL (1.0-4.8); Lymphocytes % (A) 39 %; MCH 32.2 pg (25.0-35.0); MCHC 35.6 g/dL (31.0-37.0); MCV 90.3 fL (80.0-100.0); Mean Platelet Volume 8.4; Monocytes # (A) 0.6 k/uL (0-1.0); Monocytes % (A) 7 %; Neutrophils # (A) 4.4 k/uL (1.3-7.7); Neutrophils % (A) 48 %; Platelet Count 230 k/uL (150-450); RBC 4.32 m/uL (4.30-5.90); RDW 13.1 % (11.5-15.5); WBC 9.1 k/uL (3.8-10.6)
[2023-08-12 01:39] LABS: ALT 72 U/L (4-49); AST 38 U/L (17-59); African American GFR (CKD) >90 (>60 ml/min/1.73 sqM); Albumin 4.6 g/dL (3.5-5.0); Alkaline Phosphatase 71 U/L (38-126); Anion Gap 14 mmol/L; Blood Urea Nitrogen 20 mg/dL (9-20); Carbon Dioxide 19 mmol/L (22-30); Chloride 107 mmol/L (98-107); Glucose 93 mg/dL (74-99); Lipase 203 U/L (23-300); Non-African American GFR(CKD) >90 (>60 ml/min/1.73 sqM); Potassium 3.7 mmol/L (3.5-5.1); Sodium 140 mmol/L (137-145); Total Bilirubin 0.4 mg/dL (0.2-1.3); Total Protein 7.4 g/dL (6.3-8.2)
[2023-08-12] MEDS ORDERED: MORPHINE SULFATE 4 MG/ML SYRINGE IVP STA ×3 (03:03→07:34)
[2023-08-12] MEDS ORDERED: SODIUM CHLORIDE 0.9% 1,000 ML IV STA (03:03)
[2023-08-12] MEDS ORDERED: ONDANSETRON 4 MG/2 ML VIAL IVP STA (03:03)
[2023-08-12 04:20] LABS: Appearance,Urine Clear (Clear); Bilirubin,Urine Negative (Negative); Blood,Urine Negative (Negative); Color,Urine Yellow; Glucose,Urine (UA) Negative (Negative); Ketones,Urine Negative (Negative); Leukocyte Esterase,Urine Negative (Negative); Nitrite,Urine Negative (Negative); Protein,Urine Trace (Negative)
--- NOTE | 2023-08-12 07:09 | CT ---
EXAMINATION TYPE: CT abdomen pelvis w con DATE OF EXAM: 08/12/2023 COMPARISON: NONE HISTORY: 42-year-old male abd pain, nonspecific. Concern for bowel obstruction TECHNIQUE: Contiguous axial scanning of the abdomen and pelvis following administration of 100 ml Omn ipaque 300 IV contrast. Delayed images through the kidneys and coronal/sagittal reconstructions perf ormed. CT DLP: 1569.9 mGycm Automated exposure control for dose reduction was used. FINDINGS: LUNG BASES: The heart is normal in size. No pericardial effusion. Hazy opacities at the lower lungs l ikely generalized atelectasis. LIVER/GB: Liver enlarged at 21.2 cm. Cholecystectomy clips. No focal lesions seen. Portal venous syst em is patent. No biliary ductal dilatation. PANCREAS: No significant abnormality is seen. SPLEEN: No significant abnormality is seen. ADRENALS: No significant abnormality is seen. KIDNEYS: No significant abnormality is seen. BOWEL: Some scattered prominent fluid-filled small bowel loops upper and lower abdomen. Some possible mild jejunal wall thickening in the left upper quadrant. No dilated small bowel, free fluid, or free air. Mild stool burden. No pericolonic inflammatory change. There appears to be some surgical materi al in the right lower quadrant likely reflecting prior appendectomy. LYMPH NODES: No suspicious greater than 1 cm lymph node is identified. OTHER: A couple tiny fatty umbilical hernias. The previous inflammation seen at the umbilicus on 2022 has resolved. PELVIS: Bladder nondistended. Prostate gland measures 4.2 cm wide. No abnormal fluid collection in th e pelvis or pelvic lymphadenopathy. BONES: Patient is status post L4-S1 posterior and interbody fusion. Mild to moderate degenerative dis c disease visualized lower thoracic spine. IMPRESSION: 1. SOME SCATTERED FLUID-FILLED SMALL BOWEL LOOPS IN THE UPPER AND LOWER ABDOMEN ALONG WITH SOME MILD JEJUNAL WALL THICKENING IN THE LEFT UPPER QUADRANT. CONSIDER NONSPECIFIC MILD ENTERITIS. NO EVIDENCE FOR SMALL BOWEL OBSTRUCTION. 2. HEPATOMEGALY AT 21.2 CM. 3. A COUPLE TINY FATTY UMBILICAL HERNIAS. QUERY SMALL INCISIONAL HERNIAS. THE PREVIOUS INFLAMMATION S EEN ON 11/09/2022 AT THE UMBILICUS HAS RESOLVED.
[2023-08-12] MEDS ORDERED: ONDANSETRON 4 MG ODT STARTER PACK 2 TAB BTL PO STA (07:34)
[2023-08-12 08:01] VITALS: BP 123/81; PULSE 73; RESP 16; TEMP 98.2
== END 2023-08-12 08:18 | disposition home or self-care (01) ==
LOC: EC 23:08
DX: K52.9 Noninfective gastroenteritis and colitis, unspecified (principal); I25.10 Atherosclerotic heart disease of native coronary artery without angina pectoris; F32.A Depression, unspecified; F41.9 Anxiety disorder, unspecified; Z79.01 Long term (current) use of anticoagulants; Z79.899 Other long term (current) drug therapy; Z87.891 Personal history of nicotine dependence; Z90.49 Acquired absence of other specified parts of digestive tract; Z86.718 Personal history of other venous thrombosis and embolism; Z88.6 Allergy status to analgesic agent; Z91.030 Bee allergy status; Z88.8 Allergy status to other drugs, medicaments and biological substances
CPT/HCPCS: 36415; 80053; 83605; 83690; 85025; 81003; 74177; 99285; 96374; 96375; 96376 ×2; 96361 ×2; J2270; J2405; S0119; Q9967

== ENCOUNTER 2023-08-21 23:46 | Emergency (ER) | payer OTHER ==
[2023-08-21 23:58] VITALS: RESP 18; TEMP 97.9
[2023-08-22] MEDS ORDERED: MORPHINE SULFATE 4 MG/ML SYRINGE IM STA ×2 (00:23→01:35)
--- NOTE | 2023-08-22 01:12 | XR ---
EXAM: XR Right Hand Complete, 3 or More Views CLINICAL HISTORY: ITS.REASON XR Reason: injury, pain PT reports pain to right hand and wrist. reports he was bowling and injuried hand and wrist when throwing ball TECHNIQUE: Frontal, lateral and oblique views of the right hand. COMPARISON: XR Hand dated 02/16/2016 FINDINGS: Bones/joints: Unremarkable. No acute fracture. No dislocation. Soft tissues: Unremarkable. No radiopaque foreign body. IMPRESSION: No evidence of acute fracture or dislocation.
--- NOTE | 2023-08-22 01:16 | XR ---
EXAM: XR Right Wrist Complete, 3 or More Views CLINICAL HISTORY: ITS.REASON XR Reason: injury, pain TECHNIQUE: Frontal, lateral and oblique views of the right wrist. COMPARISON: X-ray hand dated 02/16/16 FINDINGS: Bones/joints: Unremarkable. No acute fracture. No dislocation. Soft tissues: Query mild wrist soft tissue swelling. No radiopaque foreign body. IMPRESSION: 1. No evidence of acute fracture or dislocation. 2. Query mild wrist soft tissue swelling.
--- NOTE | 2023-08-22 01:35 | ED ---
Upper Extremity HPI - General Chief Complaint: Extremity Injury, Upper Stated Complaint: Right wrist injury Time Seen by Provider: 08/21/23 23:55 Source: patient Mode of arrival: ambulatory Limitations: no limitations - History of Present Illness Initial Comments: 42-year-old male presents to the emergency department reporting injury to his right wrist and hand. States that he was bowling tonight when he went to throw the ball. He felt a pop in his right wrist. Subsequently he has had pain at the distal wrist radiating into the hand. He takes [place] for pain at home and states that the medication has not been helping his symptoms. He denies any obvious swelling. No numbness or tingling in his fingers. This is his dominant hand. He denies any elbow or shoulder pain. No other alleviating, cook station modifying factors - Related Data Home Medications Medication Instructions Recorded Confirmed PARoxetine HCL [Paxil] 30 mg PO DAILY 08/22/19 02/18/23 traZODone HCL 150 mg PO HS 10/09/20 02/18/23 Prazosin HCl 6 mg PO HS 06/05/22 02/18/23 EPINEPHrine (Auto Inject) [Epipen] 0.3 mg IM ONCE PRN 10/16/22 02/18/23 Pantoprazole [Protonix] 40 mg PO AC-BID PRN 12/09/22 02/18/23 Apixaban [Eliquis] 5 mg PO BID 02/18/23 02/18/23 Atorvastatin [Lipitor] 10 mg PO HS 02/18/23 02/18/23 HYDROcodone/APAP 10-325MG [[place] 1 tab PO TID 02/18/23 02/18/23 10-325] Metoprolol Tartrate [Lopressor] 25 mg PO DAILY 02/18/23 02/18/23 methocarbamoL [Robaxin] 500 mg PO HS 02/18/23 02/18/23 Previous Rx's Medication Instructions Recorded Isosorbide Mononitrate ER [Imdur] 30 mg PO DAILY #30 tab 06/08/22 Acetaminophen Tab [Tylenol] 1,000 mg PO Q6H PRN #30 tab 04/03/23 Lidocaine 5% Patch [Lidoderm 5% 1 patch TOPICAL DAILY PRN #7 patch 04/03/23 Patch] Dicyclomine [Bentyl] 10 mg PO TID PRN 7 Days #21 capsule 08/12/23 Allergies Allergy/AdvReac Type Severity Reaction Status Date / Time ketorolac tromethamine Allergy Rash/Hives/Swelling Verified 08/21/23 23:54 [From Toradol] at injection site venom-honey bee Allergy Anaphylaxis Verified 08/21/23 23:54 [bee venom (honey bee)] droperidol AdvReac Nausea & Verified 08/21/23 23:54 Vomiting & Diarrhea naproxen AdvReac Nausea & Verified 08/21/23 23:54 Vomiting & Diarrhea Review of Systems ROS Statement: Those systems with pertinent positive or pertinent negative responses have been documented in the HPI. ROS Other: All systems not noted in ROS Statement are negative. Past Medical History Past Medical History: Coronary Artery Disease (CAD), Deep Vein Thrombosis (DVT) Additional Past Medical History / Comment(s): chronic knee pain, back pain, RBBB, elevated heart rate. History of Any Multi-Drug Resistant Organisms: MRSA Date of last positivie culture/infection: 2008 MDRO Source:: thumb Past Surgical History: Appendectomy, Back Surgery, Cholecystectomy, Heart Catheterization With Stent, Orthopedic Surgery Additional Past Surgical History / Comment(s): l4-5 fusion march 2020,l4-s1 fusion in 12/2021, carpel tunnnel release, vascectomy, skin graft knee surg x4, right hip surgery. lower bowel surgery, cholecystectomy 10/2022 Past Anesthesia/Blood Transfusion Reactions: No Reported Reaction Past Psychological History: Anxiety, Depression, PTSD Smoking Status: Former smoker Past Alcohol Use History: Occasional Past Drug Use History: None Reported - Past Family History Father Family Medical History: No Reported History Additional Family Medical History / Comment(s): Father is alive at age 61 was no major medical problems. Mother Family Medical History: No Reported History Additional Family Medical History / Comment(s): Mother is alive at age 56 with history of spinal surgeries and neurological disorders. one sister with no major medical problems. Patient has 1 son and 1 daughter with no major medical problems. General Exam Limitations: no limitations General appearance: alert, in no apparent distress Head exam: Present: atraumatic, normocephalic, normal inspection Extremities exam: Present: other (Patient has tenderness to palpation of the distal wrist and palmar hand. No obvious deformity or swelling. He has intact range of motion in all 5 digits as well as flexion and extension at the wrist. Cap refill is less than 3 seconds and 2+ radial and ulnar pulses) Course Vital Signs 08/21/23 08/22/23 23:54 01:55 Temperature 97.9 F Pulse Rate 80 70 Respiratory 18 18 Rate Blood Pressure 100/72 119/73 O2 Sat by Pulse 98 98 Oximetry Procedures - Orthopedic Splinting/Casting Injury #1 Side: right Upper Extremity Injury Location: wrist Upper Extremity Immobilizer: volar splint, Fernando wrap, synthetic pre-padded splint Medical Decision Making - Medical Decision Making Was pt. sent in by a medical professional or institution (, PA, HUMAN RESOURCES TEMP, urgent care, hospital, or custodial...) When possible be specific @ -No Did you speak to anyone other than the patient for history (EMS, parent, family, police, friend...)? What history was obtained from this source @ -No Did you review nursing and triage notes (agree or disagree)? Why? @ -I reviewed and agree with nursing and triage notes Were old charts reviewed (outside hosp., previous admission, EMS record, old EKG, old radiological studies, urgent care reports/EKG's, custodial records)? Report findings @ -No old charts were reviewed Differential Diagnosis (chest pain, altered mental status, abdominal pain women, abdominal pain men, vaginal bleeding, weakness, fever, dyspnea, syncope, headache, dizziness, GI bleed, back pain, seizure, CVA, palpatations, mental health, musculoskeletal)? @ -Differential Musculoskeletal Muscular strain, contusion, ligament sprain, fracture, arthritis, septic arthritis, bursitis, cellulitis, muscle spasm, nerve compression, DVT, arterial occlusion, herpes zoster, electrolyte abnormality, tumor.... This is not meant to be in all inclusive list EKG interpreted by me (3pts min.). @ -Not completed X-rays interpreted by me (1pt min.). @ -Yes and demonstrates no acute process CT interpreted by me (1pt min.). @ -None done U/S interpreted by me (1pt. min.). @ -None done What testing was considered but not performed or refused? (CT, X-rays, U/S, labs)? Why? @ -None What meds were considered but not given or refused? Why? @ -None Did you discuss the management of the patient with other professionals (professionals i.e. , PA, HUMAN RESOURCES TEMP, lab, RT, psych nurse, social scientist, drilling engineer, teacher, eeo officer, comp field case manager)? Give summary @ -No Was smoking cessation discussed for >3mins.? @ -No Was critical care preformed (if so, how long)? @ -No Were there social determinants of health that impacted care today? How? (Homelessness, low income, unemployed, alcoholism, drug addiction, transportation, low edu. Level, literacy, decrease access to med. care, group home, rehab)? @ -No Was there de-escalation of care discussed even if they declined (Discuss DNR or withdrawal of care, Hospice)? DNR status @ -No What co-morbidities impacted this encounter? (DM, HTN, Smoking, COPD, CAD, Cancer, CVA, ARF, Chemo, Hep., AIDS, mental health diagnosis, sleep apnea, morbid obesity)? @ -None Was patient admitted / discharged? Hospital course, mention meds given and route, prescriptions, significant lab abnormalities, going to OR and other pertinent info. @ -Upon arrival patient was placed in room 33. A thorough history and physical exam was performed. Patient remains neurovascularly intact. X-rays are performed of the patient's right hand and wrist. No obvious fractures. Due to patient's significant pain after 2 doses of morphine I did recommend splinting the extremity. Patient was agreeable to this. Volar splint was placed using Ortho-Glass. He is instructed to wear the splint. Rest, ice and elevate the extremity. Take his [place] for pain. Follow-up with the orthopedic surgeon and return for any new or worsening symptoms. Patient was agreeable to this plan and he was discharged home in stable condition Undiagnosed new problem with uncertain prognosis? @ -Yes Drug Therapy requiring intensive monitoring for toxicity (Heparin, Nitro, Insulin, Cardizem)? @ -No Were any procedures done? @ -Splinting right wrist Diagnosis/symptom? @ -Acute right wrist pain, acute right wrist sprain Acute, or Chronic, or Acute on Chronic? @ -Acute Uncomplicated (without systemic symptoms) or Complicated (systemic symptoms)? @ -Uncomplicated Side effects of treatment? @ -No Exacerbation, Progression, or Severe Exacerbation? @ -No Poses a threat to life or bodily function? How? (Chest pain, [place], [place], pneumonia, PE, COPD, DKA, ARF, appy, cholecystitis, CVA, Diverticulitis, Homicidal, Suicidal, threat to staff... and all critical care pts) @ -No Disposition Clinical Impression: Right wrist pain, Strain of right wrist Disposition: HOME SELF-CARE Condition: Stable Instructions (If sedation given, give patient instructions): Wrist Injury (ED) Additional Instructions: Rest, ice and elevate. Wear the splint. Do not get it wet. Follow up with your doctor. May require orthopedic evaluation Is patient prescribed a controlled substance at d/c from ED?: No Referrals: Xavier Reeder MD [Primary Care Provider] - 1-2 days Time of Disposition: 01:35
[2023-08-22 02:17] VITALS: BP 119/73; PULSE 70
== END 2023-08-22 02:01 | disposition home or self-care (01) ==
LOC: EC 23:46
DX: S66.911A Strain of unspecified muscle, fascia and tendon at wrist and hand level, right hand, initial encounter (principal); I25.10 Atherosclerotic heart disease of native coronary artery without angina pectoris; F41.9 Anxiety disorder, unspecified; F32.A Depression, unspecified; Z87.891 Personal history of nicotine dependence; Z79.01 Long term (current) use of anticoagulants; Z79.899 Other long term (current) drug therapy; Z90.49 Acquired absence of other specified parts of digestive tract; Z88.6 Allergy status to analgesic agent; Z91.030 Bee allergy status; Z88.8 Allergy status to other drugs, medicaments and biological substances; X50.0XXA Overexertion from strenuous movement or load, initial encounter; Y93.54 Activity, bowling; Y92.39 Other specified sports and athletic area as the place of occurrence of the external cause
CPT/HCPCS: 99283; 96372 ×2; 29125; 73110; 73130; J2270

== ENCOUNTER 2023-08-25 00:08 | Emergency (ER) | payer OTHER ==
[2023-08-25 00:24] VITALS: TEMP 98.9
--- NOTE | 2023-08-25 00:38 | ED ---
General Adult HPI - General Chief complaint: Neuro Symptoms/Deficit Stated complaint: Migraine, Left side numbness Time Seen by Provider: 08/25/23 00:15 Source: patient Mode of arrival: wheelchair Limitations: no limitations - History of Present Illness Initial comments: Dictation was produced using [employer]umen dictation software. please excuse any gram matical, word or spelling errors. Chief Complaint: 42-year-old male presents with headache and arm tingling History of Present Illness: Patient is a 42-year-old male he has past medical history of chronic brain injury, coronary artery disease and migraines. States that 2 hours prior to arrival began having a headache. He has been seeing neurology and outpatient basis due to recent history of migraines. He is able to get home when he had a lot of A of verbal confrontation with family. States that it stressed about and his migraine got worse along with tingling in his left upper extremity. Denies numbness. States that he has no history of complex migraines. Patient states that the headache is severe whole cranial. The ROS documented in this emergency department record has been reviewed and confirmed by me. Those systems with pertinent positive or negative responses have been documented in the HPI. All other systems are other negative and/or noncontributory. - Related Data Home Medications Medication Instructions Recorded Confirmed PARoxetine HCL [Paxil] 30 mg PO DAILY 08/22/19 02/18/23 traZODone HCL 150 mg PO HS 10/09/20 02/18/23 Prazosin HCl 6 mg PO HS 06/05/22 02/18/23 EPINEPHrine (Auto Inject) [Epipen] 0.3 mg IM ONCE PRN 10/16/22 02/18/23 Pantoprazole [Protonix] 40 mg PO AC-BID PRN 12/09/22 02/18/23 Apixaban [Eliquis] 5 mg PO BID 02/18/23 02/18/23 Atorvastatin [Lipitor] 10 mg PO HS 02/18/23 02/18/23 HYDROcodone/APAP 10-325MG [[place] 1 tab PO TID 02/18/23 02/18/23 10-325] Metoprolol Tartrate [Lopressor] 25 mg PO DAILY 02/18/23 02/18/23 methocarbamoL [Robaxin] 500 mg PO HS 02/18/23 02/18/23 Previous Rx's Medication Instructions Recorded Isosorbide Mononitrate ER [Imdur] 30 mg PO DAILY #30 tab 06/08/22 Acetaminophen Tab [Tylenol] 1,000 mg PO Q6H PRN #30 tab 04/03/23 Lidocaine 5% Patch [Lidoderm 5% 1 patch TOPICAL DAILY PRN #7 patch 04/03/23 Patch] Dicyclomine [Bentyl] 10 mg PO TID PRN 7 Days #21 capsule 08/12/23 Allergies Allergy/AdvReac Type Severity Reaction Status Date / Time ketorolac tromethamine Allergy Rash/Hives/Swelling Verified 08/25/23 00:13 [From Toradol] at injection site venom-honey bee Allergy Anaphylaxis Verified 08/25/23 00:13 [bee venom (honey bee)] droperidol AdvReac Nausea & Verified 08/25/23 00:13 Vomiting & Diarrhea naproxen AdvReac Nausea & Verified 08/25/23 00:13 Vomiting & Diarrhea Review of Systems ROS Statement: Those systems with pertinent positive or pertinent negative responses have been documented in the HPI. ROS Other: All systems not noted in ROS Statement are negative. Past Medical History Past Medical History: Coronary Artery Disease (CAD), Deep Vein Thrombosis (DVT) Additional Past Medical History / Comment(s): chronic knee pain, back pain, RBBB, elevated heart rate. History of Any Multi-Drug Resistant Organisms: MRSA Date of last positivie culture/infection: 2008 MDRO Source:: thumb Past Surgical History: Appendectomy, Back Surgery, Cholecystectomy, Heart Catheterization With Stent, Orthopedic Surgery Additional Past Surgical History / Comment(s): l4-5 fusion march 2020,l4-s1 fusion in 12/2021, carpel tunnnel release, vascectomy, skin graft knee surg x4, right hip surgery. lower bowel surgery, cholecystectomy 10/2022 Past Anesthesia/Blood Transfusion Reactions: No Reported Reaction Past Psychological History: Anxiety, Depression, PTSD Smoking Status: Former smoker Past Alcohol Use History: Occasional Past Drug Use History: None Reported - Past Family History Father Family Medical History: No Reported History Additional Family Medical History / Comment(s): Father is alive at age 61 was no major medical problems. Mother Family Medical History: No Reported History Additional Family Medical History / Comment(s): Mother is alive at age 56 with h istory of spinal surgeries and neurological disorders. one sister with no major medical problems. Patient has 1 son and 1 daughter with no major medical problems. General Exam - General Exam Comments Initial Comments: PHYSICAL EXAM: General Impression: Alert and oriented x3, not in acute distress HEENT: Normocephalic atraumatic, extra-ocular movements intact, pupils equal and reactive to light bilaterally, mucous membranes moist. Cardiovascular: Heart regular rate and rhythm Chest: Able to complete full sentences, no retractions, no tachypnea Abdomen: abdomen soft, non-tender, non-distended, no organomegaly Musculoskeletal: Pulses present and equal in all extremities, no peripheral edema Motor: no focal deficits noted Neurological: CN II-XII grossly intact, no focal motor deficits noted, reported deficit to light touch of the left upper extremity Skin: Intact with no visualized rashes Psych: Normal affect and mood Limitations: no limitations Course Vital Signs 08/25/23 00:11 Temperature 98.9 F Pulse Rate 95 Respiratory 18 Rate Blood Pressure 127/87 O2 Sat by Pulse 98 Oximetry EKG Findings - EKG Comments: EKG Findings:: My EKG interpretation: Ventricular rate 72, sinus rhythm,. 169, Curasol 7, QTC 46. No [place] prolongation, no QTC prolongation, no ST or T-wave changes noted. Overall, this EKG is unremarkable Medical Decision Making - Medical Decision Making Was pt. sent in by a medical professional or institution (COLTON Muhammad, RULING MACHINE SET UP OPERATOR, urgent care, hospital, or [place] [facility] facility...) When possible be specific @ -No Did you speak to anyone other than the patient for history (EMS, parent, family, police, friend...)? What history was obtained from this source @ -No Did you review nursing and triage notes (agree or disagree)? Why? @ -I reviewed and agree with nursing and triage notes Were old charts reviewed (outside hosp., previous admission, EMS record, old EKG, old radiological studies, urgent care reports/EKG's, [place] [facility] facility records)? Report findings @ -No old charts were reviewed Differential Diagnosis (chest pain, altered mental status, abdominal pain women, abdominal pain men, vaginal bleeding, musculoskeletal, weakness, fever, dyspnea, syncope, headache, dizziness, GI bleed, back pain, seizure, CVA, palpatations, mental health)? @ -Differential Headache: Migraine, tension, cluster, carbon monoxide, central venous thrombosis, pension karma temporal arteritis, acute closure glaucoma, intercranial hemorrhage, mastoiditis, sinusitis, head injury, this is not meant to be an all-inclusive list. EKG interpreted by me (3pts min.). @ -None done X-rays interpreted by me (1pt min.). @ -None done CT interpreted by me (1pt min.). @ -CT of the brain shows no acute processes. U/S interpreted by me (1pt. min.). @ -None done What testing was considered but not performed or refused? (CT, X-rays, U/S, labs)? Why? @ -None What meds were considered but not given or refused? Why? @ -None Did you discuss the management of the patient with other professionals (professionals i.e. , PA, RULING MACHINE SET UP OPERATOR, lab, RT, psych nurse, social media job titles, alumina plant supervisor, teacher, second officer, case therapist)? Give summary @ -No Was smoking cessation discussed for >3mins.? @ -No Was critical care preformed (if so, how long)? @ -No Were there social determinants of health that impacted care today? How? (Homelessness, low income, unemployed, alcoholism, drug addiction, transportation, low edu. Level, literacy, decrease access to med. care, nursing home, rehab)? @ -No Was there de-escalation of care discussed even if they declined (Discuss DNR or withdrawal of care, Hospice)? DNR status @ -No What co-morbidities impacted this encounter? (DM, HTN, Smoking, COPD, CAD, Cancer, CVA, ARF, Chemo, Hep., AIDS, mental health diagnosis, sleep apnea, morbid obesity)? @ -None Was patient admitted / discharged? Hospital course, mention meds given and route, prescriptions, significant lab abnormalities, going to OR and other pertinent info. @ -42 Year-old male presents to the emergency department for acute headache. He has history of migraine headaches. Vital signs upon arrival are within acceptable limits. Patient has no focal neurologic deficits. He is well- appearing. He reports severe headache. He is able to utilize his phone without any complications. He is resting comfortably. Physical examination is benign. Computed tomography scan was within 6 hours of time of onset. Computed tomography scan is unremarkable the brain. Patient given headache cocktail improvement of symptoms. Patient observed in emergency department for 3 hours and 30 minutes. Reevaluated at bedside at 3:45 AM and will be discharged. Undiagnosed new problem with uncertain prognosis? @ -No Drug Therapy requiring intensive monitoring for toxicity (Heparin, Nitro, Insulin, Cardizem)? @ -No Were any procedures done? @ -No Diagnosis/symptom? Acute, or Chronic, or Acute on Chronic? Uncomplicated (without systemic symptoms) or Complicated (systemic symptoms)? @ - headache Side effects of treatment? @ -No Exacerbation, Progression, or Severe Exacerbation? @ -No Poses a threat to life or bodily function? How? (Chest pain, [place], [place], pneumonia, PE, COPD, DKA, ARF, appy, cholecystitis, CVA, Diverticulitis, Homicidal, Suicidal, threat to staff... and all critical care pts) @ -No - Lab Data Result diagrams: 08/25/23 00:24 08/25/23 00:24 Lab Results 08/25/23 08/25/23 08/25/23 Range/Units 00:24 00:24 00:24 WBC 9.0 (3.8-10.6) k/uL RBC 4.13 L (4.30-5.90) m/uL Hgb 13.4 (13.0-17.5) gm/dL Hct 38.3 L (39.0-53.0) % MCV 92.7 (80.0-100.0) fL MCH 32.3 (25.0-35.0) pg MCHC 34.9 (31.0-37.0) g/dL RDW 13.3 (11.5-15.5) % Plt Count 232 (150-450) k/uL MPV 8.6 Neutrophils % 50 % Lymphocytes % 40 % Monocytes % 5 % Eosinophils % 3 % Basophils % 1 % Neutrophils # 4.5 (1.3-7.7) k/uL Lymphocytes # 3.6 (1.0-4.8) k/uL Monocytes # 0.4 (0-1.0) k/uL Eosinophils # 0.3 (0-0.7) k/uL Basophils # 0.1 (0-0.2) k/uL PT 10.6 (10.0-12.5) sec INR 1.0 (<1.2) APTT 25.0 (22.0-30.0) sec Sodium 140 (137-145) mmol/L Potassium 3.5 (3.5-5.1) mmol/L Chloride 108 H (98-107) mmol/L Carbon Dioxide 19 L (22-30) mmol/L Anion Gap 13 mmol/L BUN 16 (9-20) mg/dL Creatinine 1.22 (0.66-1.25) mg/dL Est GFR (CKD-EPI)AfAm 86 (>60 ml/min/1.73 sqM) Est GFR (CKD-EPI)NonAf 74 (>60 ml/min/1.73 sqM) Glucose 122 H (74-99) mg/dL Calcium 9.5 (8.4-10.2) mg/dL Magnesium 1.9 (1.6-2.3) mg/dL Total Bilirubin 0.3 (0.2-1.3) mg/dL AST 31 (17-59) U/L ALT 53 H (4-49) U/L Alkaline Phosphatase 72 (38-126) U/L Total Protein 7.1 (6.3-8.2) g/dL Albumin 4.4 (3.5-5.0) g/dL Disposition Clinical Impression: Acute headache Disposition: HOME SELF-CARE Condition: Fair Instructions (If sedation given, give patient instructions): Acute Headache ( DC) Is patient prescribed a controlled substance at d/c from ED?: No Referrals: Xavier Reeder MD [Primary Care Provider] - 1-2 days Time of Disposition: 03:44
--- NOTE | 2023-08-25 00:51 | CT ---
EXAM: CT Head Without Intravenous Contrast CLINICAL HISTORY: ITS.REASON CT Reason: headache 2 hours TECHNIQUE: Axial computed tomography images of the head/brain without intravenous contrast. CTDI is 49.1 mGy and DLP is 1248.4 mGy-cm. This CT exam was performed using one or more of the following dose reduction techniques: automated exposure control, adjustment of the mA and/or kV according to patient size, and/or use of iterative reconstruction technique. COMPARISON: CT Head dated 04/27/2023 FINDINGS: Brain: Unremarkable. No hemorrhage. No significant white matter disease. No edema. Ventricles: Unremarkable. No ventriculomegaly. Bones/joints: Unremarkable. No acute fracture. Soft tissues: Unremarkable. Sinuses: Paranasal mucosal thickening predominantly in the ethmoid air cells and maxillary sinuses similar to the prior. Mostly opacified right maxillary sinus and mucoperiosteal thickening similar to the prior likely reflects chronic sinusitis. No sinus fluid levels. Mastoid air cells: Unremarkable as visualized. No mastoid effusion. IMPRESSION: 1. No evidence of acute intracranial abnormality. 2. Stable paranasal sinus disease.
[2023-08-25 00:58] LABS: Basophils # (A) 0.1 k/uL (0-0.2); Basophils % (A) 1 %; Eosinophils # (A) 0.3 k/uL (0-0.7); Eosinophils % (A) 3 %; HCT 38.3 % (39.0-53.0); HGB 13.4 gm/dL (13.0-17.5); Lymphocytes # (A) 3.6 k/uL (1.0-4.8); Lymphocytes % (A) 40 %; MCH 32.3 pg (25.0-35.0); MCHC 34.9 g/dL (31.0-37.0); MCV 92.7 fL (80.0-100.0); Mean Platelet Volume 8.6; Monocytes # (A) 0.4 k/uL (0-1.0); Monocytes % (A) 5 %; Neutrophils # (A) 4.5 k/uL (1.3-7.7); Neutrophils % (A) 50 %; Platelet Count 232 k/uL (150-450); RBC 4.13 m/uL (4.30-5.90); RDW 13.3 % (11.5-15.5)
[2023-08-25 01:15] LABS: ALT 53 U/L (4-49); AST 31 U/L (17-59); African American GFR (CKD) 86 (>60 ml/min/1.73 sqM); Albumin 4.4 g/dL (3.5-5.0); Alkaline Phosphatase 72 U/L (38-126); Anion Gap 13 mmol/L; Blood Urea Nitrogen 16 mg/dL (9-20); Calcium 9.5 mg/dL (8.4-10.2); Carbon Dioxide 19 mmol/L (22-30); Chloride 108 mmol/L (98-107); Glucose 122 mg/dL (74-99); Magnesium 1.9 mg/dL (1.6-2.3); Non-African American GFR(CKD) 74 (>60 ml/min/1.73 sqM); Potassium 3.5 mmol/L (3.5-5.1); Sodium 140 mmol/L (137-145); Total Bilirubin 0.3 mg/dL (0.2-1.3); Total Protein 7.1 g/dL (6.3-8.2)
[2023-08-25 01:23] LABS: Prothrombin Time 10.6 sec (10.0-12.5)
[2023-08-25] MEDS ORDERED: ONDANSETRON 4 MG/2 ML VIAL IVP STA (02:09)
[2023-08-25] MEDS ORDERED: SODIUM CHLORIDE 0.9% 1,000 ML IV STA (02:09)
[2023-08-25] MEDS ORDERED: diphenhydrAMINE 50 MG/ML 1 ML VIAL IVP STA (02:09)
[2023-08-25] MEDS ORDERED: ACETAMINOPHEN TAB 500 MG TAB PO STA (02:09)
[2023-08-25] MEDS ORDERED: HYDROmorphone 1 MG/ML 1 ML SYRINGE IVP STA (02:13)
[2023-08-25 04:17] VITALS: BP 130/91; PULSE 64; RESP 20
== END 2023-08-25 04:23 | disposition home or self-care (01) ==
LOC: EC 00:08
DX: R51.9 Headache, unspecified (principal); I25.10 Atherosclerotic heart disease of native coronary artery without angina pectoris; F32.A Depression, unspecified; F41.9 Anxiety disorder, unspecified; Z79.01 Long term (current) use of anticoagulants; Z79.899 Other long term (current) drug therapy; Z88.6 Allergy status to analgesic agent; Z88.8 Allergy status to other drugs, medicaments and biological substances; Z91.030 Bee allergy status; Z87.891 Personal history of nicotine dependence; Z86.718 Personal history of other venous thrombosis and embolism; Z90.49 Acquired absence of other specified parts of digestive tract
CPT/HCPCS: 36415; 93005; 80053; 83735; 85025; 85610; 85730; 70450; 99285; 96374; 96375 ×2; 96361 ×2; J1200; J2405; J1170

== ENCOUNTER 2023-08-27 23:02 | Emergency (ER) | payer OTHER ==
[2023-08-28] VITALS: TEMP 98.2
[2023-08-28] MEDS ORDERED: HYDROmorphone 1 MG/ML 1 ML SYRINGE IM STA (00:32)
--- NOTE | 2023-08-28 00:43 | ED ---
General Adult HPI - General Chief complaint: Headache Stated complaint: Migraine Time Seen by Provider: 08/28/23 00:04 Source: patient, RN notes reviewed, old records reviewed Mode of arrival: ambulatory Limitations: no limitations - History of Present Illness Initial comments: 42-year-old male history of migraine headache presents for evaluation of frontal headache. Patient states that he developed headache over the past several hours and tried his normal home remedies which were not effective. He does have history of recurrent headache. This is associated with nausea. [facility] - Related Data Home Medications Medication Instructions Recorded Confirmed PARoxetine HCL [Paxil] 30 mg PO DAILY 08/22/19 02/18/23 traZODone HCL 150 mg PO HS 10/09/20 02/18/23 Prazosin HCl 6 mg PO HS 06/05/22 02/18/23 EPINEPHrine (Auto Inject) [Epipen] 0.3 mg IM ONCE PRN 10/16/22 02/18/23 Pantoprazole [Protonix] 40 mg PO AC-BID PRN 12/09/22 02/18/23 Apixaban [Eliquis] 5 mg PO BID 02/18/23 02/18/23 Atorvastatin [Lipitor] 10 mg PO HS 02/18/23 02/18/23 HYDROcodone/APAP 10-325MG [[place] 1 tab PO TID 02/18/23 02/18/23 10-325] Metoprolol Tartrate [Lopressor] 25 mg PO DAILY 02/18/23 02/18/23 methocarbamoL [Robaxin] 500 mg PO HS 02/18/23 02/18/23 Previous Rx's Medication Instructions Recorded Isosorbide Mononitrate ER [Imdur] 30 mg PO DAILY #30 tab 06/08/22 Acetaminophen Tab [Tylenol] 1,000 mg PO Q6H PRN #30 tab 04/03/23 Lidocaine 5% Patch [Lidoderm 5% 1 patch TOPICAL DAILY PRN #7 patch 04/03/23 Patch] Dicyclomine [Bentyl] 10 mg PO TID PRN 7 Days #21 capsule 08/12/23 Allergies Allergy/AdvReac Type Severity Reaction Status Date / Time ketorolac tromethamine Allergy Rash/Hives/Swelling Verified 08/27/23 23:49 [From Toradol] at injection site venom-honey bee Allergy Anaphylaxis Verified 08/27/23 23:49 [bee venom (honey bee)] droperidol AdvReac Nausea & Verified 08/27/23 23:49 Vomiting & Diarrhea naproxen AdvReac Nausea & Verified 08/27/23 23:49 Vomiting & Diarrhea Review of Systems ROS Statement: Those systems with pertinent positive or pertinent negative responses have been documented in the HPI. ROS Other: All systems not noted in ROS Statement are negative. Past Medical History Past Medical History: Coronary Artery Disease (CAD), Deep Vein Thrombosis (DVT) Additional Past Medical History / Comment(s): chronic knee pain, back pain, RBBB, elevated heart rate. History of Any Multi-Drug Resistant Organisms: MRSA Date of last positivie culture/infection: 2008 MDRO Source:: thumb Past Surgical History: Appendectomy, Back Surgery, Cholecystectomy, Heart Catheterization With Stent, Orthopedic Surgery Additional Past Surgical History / Comment(s): l4-5 fusion march 2020,l4-s1 fusion in 12/2021, carpel tunnnel release, vascectomy, skin graft knee surg x4, right hip surgery. lower bowel surgery, cholecystectomy 10/2022 Past Anesthesia/Blood Transfusion Reactions: No Reported Reaction Past Psychological History: Anxiety, Depression, PTSD Smoking Status: Former smoker Past Alcohol Use History: Occasional Past Drug Use History: None Reported - Past Family History Father Family Medical History: No Reported History Additional Family Medical History / Comment(s): Father is alive at age 61 was no major medical problems. Mother Family Medical History: No Reported History Additional Family Medical History / Comment(s): Mother is alive at age 56 with history of spinal surgeries and neurological disorders. one sister with no major medical problems. Patient has 1 son and 1 daughter with no major medical problems. General Exam Limitations: no limitations General appearance: alert, in no apparent distress, other (Patient on his phone when I entered the room) Head exam: Present: atraumatic, normocephalic Eye exam: Present: normal appearance, PERRL ENT exam: Present: mucous membranes moist Neck exam: Present: normal inspection. Absent: tenderness, meningismus Respiratory exam: Present: normal lung sounds bilaterally. Absent: respiratory distress, wheezes Cardiovascular Exam: Present: regular rate, normal rhythm GI/Abdominal exam: Present: soft. Absent: distended, tenderness, guarding Extremities exam: Present: normal inspection, normal capillary refill Neurological exam: Present: alert, oriented X3, CN II-XII intact, other (Nonfocal neurologic exam). Absent: motor sensory deficit Psychiatric exam: Present: normal affect, normal mood Skin exam: Present: warm, dry, intact Course Vital Signs 08/27/23 23:47 Temperature 98.2 F Pulse Rate 86 Respiratory 18 Rate Blood Pressure 114/71 O2 Sat by Pulse 95 Oximetry Medical Decision Making - Medical Decision Making Was pt. sent in by a medical professional or institution (, PA, STUFFED CASING TIER, urgent care, hospital, or jail...) When possible be specific @ -[No] Did you speak to anyone other than the patient for history (EMS, parent, family, police, friend...)? What history was obtained from this source @ -[No] Did you review nursing and triage notes (agree or disagree)? Why? @ -[I reviewed and agree with nursing and triage notes] Were old charts reviewed (outside hosp., previous admission, EMS record, old EKG, old radiological studies, urgent care reports/EKG's, jail records)? Report findings @ -[No old charts were reviewed] Differential Diagnosis (chest pain, altered mental status, abdominal pain women, abdominal pain men, vaginal bleeding, weakness, fever, dyspnea, syncope, headache, dizziness, GI bleed, back pain, seizure, CVA, palpatations, mental health, musculoskeletal)? @ -Differential Headache: Migraine, tension, cluster, carbon monoxide, central venous thrombosis, pension karma temporal arteritis, acute closure glaucoma, intercranial hemorrhage, mastoiditis, sinusitis, head injury, this is not meant to be an all-inclusive list. EKG interpreted by me (3pts min.). @ -[As above] X-rays interpreted by me (1pt min.). @ -[None done] CT interpreted by me (1pt min.). @ -[None done] U/S interpreted by me (1pt. min.). @ -[None done] What testing was considered but not performed or refused? (CT, X-rays, U/S, labs)? Why? @ -I considered CT although the patient received head CT 2 days ago with complaint of headache which was unremarkable What meds were considered but not given or refused? Why? @ -[None] Did you discuss the management of the patient with other professionals (professionals i.e. , PA, STUFFED CASING TIER, lab, RT, psych nurse, social services analyst, foreign language stenographer, teacher, parcel post officer, supportive employment case manager)? Give summary @ -[No] Was smoking cessation discussed for >3mins.? @ -[No] Was critical care preformed (if so, how long)? @ -[No] Were there social determinants of health that impacted care today? How? (Homelessness, low income, unemployed, alcoholism, drug addiction, transportation, low edu. Level, literacy, decrease access to med. care, skilled nursing, rehab)? @ -[No] Was there de-escalation of care discussed even if they declined (Discuss DNR or withdrawal of care, Hospice)? DNR status @ -[No] What co-morbidities impacted this encounter? (DM, HTN, Smoking, COPD, CAD, Cancer, CVA, ARF, Chemo, Hep., AIDS, mental health diagnosis, sleep apnea, morbid obesity)? @ -[Migraine headache Was patient admitted / discharged? Hospital course, mention meds given and route, prescriptions, significant lab abnormalities, going to OR and other pertinent info. @ -[42-year-old male presents with headache. Patient well-appearing with stable vitals. He is alert with nonfocal. Blood pressure normal. He's on his phone when I enter the room. He does have history of chronic headaches. I suspect this is headache related to typical headache symptoms. He received CT of the brain 2 days ago. He's given IM medication and return parameters. Stable for discharge at this time. Undiagnosed new problem with uncertain prognosis? @ -[No] Drug Therapy requiring intensive monitoring for toxicity (Heparin, Nitro, Insulin, Cardizem)? @ -[No] Were any procedures done? @ -[No] Diagnosis/symptom? @Headache Acute, or Chronic, or Acute on Chronic? @ -[Acute on chronic Uncomplicated (without systemic symptoms) or Complicated (systemic symptoms)? @ -[default] Side effects of treatment? @ -[No] Exacerbation, Progression, or Severe Exacerbation? @ -[No] Poses a threat to life or bodily function? How? (Chest pain, USA, [place], pneumonia, PE, COPD, DKA, ARF, appy, cholecystitis, CVA, Diverticulitis, Homicidal, Suicidal, threat to staff... and all critical care pts) @ -Low risk at this time Disposition Clinical Impression: Headache Disposition: HOME SELF-CARE Condition: Fair Instructions (If sedation given, give patient instructions): Acute Headache (ED) Is patient prescribed a controlled substance at d/c from ED?: No Referrals: Xavier Reeder MD [Primary Care Provider] - 1-2 days Time of Disposition: 02:00
[2023-08-28 01:24] VITALS: BP 102/67; PULSE 74; RESP 20
== END 2023-08-28 01:18 | disposition home or self-care (01) ==
LOC: EC 23:02
DX: G43.909 Migraine, unspecified, not intractable, without status migrainosus (principal); I25.10 Atherosclerotic heart disease of native coronary artery without angina pectoris; F41.9 Anxiety disorder, unspecified; F32.A Depression, unspecified; Z87.891 Personal history of nicotine dependence; Z79.899 Other long term (current) drug therapy; Z88.6 Allergy status to analgesic agent; Z91.030 Bee allergy status; Z88.8 Allergy status to other drugs, medicaments and biological substances; Z79.01 Long term (current) use of anticoagulants; Z90.49 Acquired absence of other specified parts of digestive tract
CPT/HCPCS: 99283; 96372; J1170

== ENCOUNTER 2023-08-29 23:03 | Emergency (ER) | payer OTHER ==
[2023-08-29 23:18] VITALS: TEMP 97.5
--- NOTE | 2023-08-30 00:05 | ED ---
Headache HPI - General Chief Complaint: Headache Stated Complaint: Migraine Time Seen by Provider: 08/30/23 00:03 Source: RN notes reviewed Mode of arrival: ambulatory - History of Present Illness Initial Comments: Patient is a 42 year-old male who presents to the emergency department for migraine. Patient developed headache this evening which he states started after his family stressed out. Patient took his mother medications without relief. He denies any sudden or severe onset. No recent fall or head trauma. He has history of chronic migraines which he follows with the [facility] for. No fever chills nausea vomiting weakness - Related Data Home Medications Medication Instructions Recorded Confirmed PARoxetine HCL [Paxil] 30 mg PO DAILY 08/22/19 02/18/23 traZODone HCL 150 mg PO HS 10/09/20 02/18/23 Prazosin HCl 6 mg PO HS 06/05/22 02/18/23 EPINEPHrine (Auto Inject) [Epipen] 0.3 mg IM ONCE PRN 10/16/22 02/18/23 Pantoprazole [Protonix] 40 mg PO AC-BID PRN 12/09/22 02/18/23 Apixaban [Eliquis] 5 mg PO BID 02/18/23 02/18/23 Atorvastatin [Lipitor] 10 mg PO HS 02/18/23 02/18/23 HYDROcodone/APAP 10-325MG [[place] 1 tab PO TID 02/18/23 02/18/23 10-325] Metoprolol Tartrate [Lopressor] 25 mg PO DAILY 02/18/23 02/18/23 methocarbamoL [Robaxin] 500 mg PO HS 02/18/23 02/18/23 Previous Rx's Medication Instructions Recorded Isosorbide Mononitrate ER [Imdur] 30 mg PO DAILY #30 tab 06/08/22 Acetaminophen Tab [Tylenol] 1,000 mg PO Q6H PRN #30 tab 04/03/23 Lidocaine 5% Patch [Lidoderm 5% 1 patch TOPICAL DAILY PRN #7 patch 04/03/23 Patch] Dicyclomine [Bentyl] 10 mg PO TID PRN 7 Days #21 capsule 08/12/23 Allergies Allergy/AdvReac Type Severity Reaction Status Date / Time ketorolac tromethamine Allergy Rash/Hives/Swelling Verified 08/29/23 23:17 [From Toradol] at injection site venom-honey bee Allergy Anaphylaxis Verified 08/29/23 23:17 [bee venom (honey bee)] droperidol AdvReac Nausea & Verified 08/29/23 23:17 Vomiting & Diarrhea naproxen AdvReac Nausea & Verified 08/29/23 23:17 Vomiting & Diarrhea Review of Systems ROS Statement: Those systems with pertinent positive or pertinent negative responses have been documented in the HPI. ROS Other: All systems not noted in ROS Statement are negative. Past Medical History Past Medical History: Coronary Artery Disease (CAD), Deep Vein Thrombosis (DVT) Additional Past Medical History / Comment(s): chronic knee pain, back pain, RBBB, elevated heart rate. History of Any Multi-Drug Resistant Organisms: MRSA Date of last positivie culture/infection: 2008 MDRO Source:: thumb Past Surgical History: Appendectomy, Back Surgery, Cholecystectomy, Heart Catheterization With Stent, Orthopedic Surgery Additional Past Surgical History / Comment(s): l4-5 fusion march 2020,l4-s1 fusion in 12/2021, carpel tunnnel release, vascectomy, skin graft knee surg x4, right hip surgery. lower bowel surgery, cholecystectomy 10/2022 Past Anesthesia/Blood Transfusion Reactions: No Reported Reaction Past Psychological History: Anxiety, Depression, PTSD Smoking Status: Former smoker Past Alcohol Use History: Occasional Past Drug Use History: None Reported - Past Family History Father Family Medical History: No Reported History Additional Family Medical History / Comment(s): Father is alive at age 61 was no major medical problems. Mother Family Medical History: No Reported History Additional Family Medical History / Comment(s): Mother is alive at age 56 with history of spinal surgeries and neurological disorders. one sister with no major medical problems. Patient has 1 son and 1 daughter with no major medical problems. General Exam - General Exam Comments Initial Comments: Visual Physical Exam Vital signs reviewed General: Well-appearing, nontoxic, no acute distress. Head: Normocephalic, atraumatic Eyes: PERRLA, EOMI ENT: Airway patent Chest: Nonlabored breathing Skin: No visual rash, normal skin tone Neuro: Alert and oriented 3 Musculoskeletal: No gross abnormalities General appearance: alert Head exam: Present: atraumatic, normocephalic, normal inspection Eye exam: Present: normal appearance, PERRL, EOMI. Absent: scleral icterus, conjunctival injection, periorbital swelling Respiratory exam: Present: normal lung sounds bilaterally. Absent: respiratory distress, wheezes, rales, rhonchi, stridor Cardiovascular Exam: Present: regular rate, normal rhythm, normal heart sounds. Absent: systolic murmur, diastolic murmur, rubs, gallop, clicks Neurological exam: Present: alert Expanded Sensory exam: Upper Extremity Light Touch: Normal, Lower Extremity Light Touch: Normal Motor strength exam: RUE: 5, LUE: 5, RLE: 5, LLE: 5 Skin exam: Present: warm, dry, intact, normal color. Absent: rash Course Vital Signs 08/29/23 23:14 Temperature 97.5 F L Pulse Rate 82 Respiratory 18 Rate Blood Pressure 116/76 O2 Sat by Pulse 98 Oximetry Medical Decision Making - Medical Decision Making I performed the QuickNote portion of this chart - Jackie Soria PA-C Was pt. sent in by a medical professional or institution ([facility], [facility], urgent care, hospital, or custodial...) When possible be specific @ -No Did you speak to anyone other than the patient for history (EMS, parent, family, police, friend...)? What history was obtained from this source @ -No Did you review nursing and triage notes (agree or disagree)? Why? @ -I reviewed and agree with nursing and triage notes Were old charts reviewed (outside hosp., previous admission, EMS record, old EKG, old radiological studies, urgent care reports/EKG's, custodial records)? Report findings @ -Patient had a recent head CT Differential Diagnosis (chest pain, altered mental status, abdominal pain women, abdominal pain men, vaginal bleeding, weakness, fever, dyspnea, syncope, headache, dizziness, GI bleed, back pain, seizure, CVA, palpatations, mental health)? @ -Differential Headache: Migraine, tension, cluster, carbon monoxide, central venous thrombosis, pension karma temporal arteritis, acute closure glaucoma, intercranial hemorrhage, mastoiditis, sinusitis, head injury, this is not meant to be an all-inclusive list. EKG interpreted by me (3pts min.). @ -As above X-rays interpreted by me (1pt min.). @ -None done CT interpreted by me (1pt min.). @ -None done U/S interpreted by me (1pt. min.). @ -None done What testing was considered but not performed or refused? (CT, X-rays, U/S, labs)? Why? @ -None What meds were considered but not given or refused? Why? @ -[None] Did you discuss the management of the patient with other professionals (professionals i.e. , PA, ZINC ETCHER, lab, RT, psych nurse, forensic social worker, inspecting machine adjuster, teacher, chief lending officer, assistant case manager)? Give summary @ -[No] Was smoking cessation discussed for >3mins.? @ -[No] Was critical care preformed (if so, how long)? @ -[No] Were there social determinants of health that impacted care today? How? (Homelessness, low income, unemployed, alcoholism, drug addiction, transporta tion, low edu. Level, literacy, decrease access to med. care, [facility], rehab)? @ -[No] Was there de-escalation of care discussed even if they declined (Discuss DNR or withdrawal of care, Hospice)? DNR status @ -[No] What co-morbidities impacted this encounter? (DM, HTN, Smoking, COPD, CAD, Cancer, CVA, ARF, Chemo, Hep., AIDS, mental health diagnosis, sleep apnea, morbid obesity)? @ -Recurrent migraines Was patient admitted / discharged? Hospital course, mention meds given and route, prescriptions, significant lab abnormalities, going to OR and other pertinent info. @ -42-year-old male presenting with migraine. No alarming features. Patient is alert and oriented 4 with no deficit on neurological exam. Patient given IM pain medication and is in stable medical condition for discharge. He is encouraged to follow up with his neurologist. Undiagnosed new problem with uncertain prognosis? @ -[No] Drug Therapy requiring intensive monitoring for toxicity (Heparin, Nitro, Insulin, Cardizem)? @ -[No] Were any procedures done? @ -[No] Diagnosis/symptom? @ Migraine Acute, or Chronic, or Acute on Chronic? @ -Acute Uncomplicated (without systemic symptoms) or Complicated (systemic symptoms)? @ uncomplicated Side effects of treatment? @ -[No] Exacerbation, Progression, or Severe Exacerbation? @ -[No] Poses a threat to life or bodily function? How? (Chest pain, [place], [place], pneumonia, PE, COPD, DKA, ARF, appy, cholecystitis, CVA, Diverticulitis, Homicidal, Suicidal, threat to staff... and all critical care pts) @ -[No] Dr. Rhoades is my attending Disposition Clinical Impression: Migraine Disposition: HOME SELF-CARE Condition: Good Instructions (If sedation given, give patient instructions): Migraine Headache (ED) Additional Instructions: Follow-up with neurologist in one to 2 days. Return to the emergency department if you experience new, concerning, or worsening symptoms Is patient prescribed a controlled substance at d/c from ED?: No Referrals: Xavier Reeder MD [Primary Care Provider] - 1-2 days
[2023-08-30] MEDS ORDERED: HYDROmorphone 1 MG/ML 1 ML SYRINGE IM STA (03:05)
[2023-08-30 03:36] VITALS: BP 106/73; PULSE 80; RESP 19
== END 2023-08-30 03:25 | disposition home or self-care (01) ==
LOC: EC 23:03
DX: G43.909 Migraine, unspecified, not intractable, without status migrainosus (principal); I25.10 Atherosclerotic heart disease of native coronary artery without angina pectoris; F41.9 Anxiety disorder, unspecified; F32.A Depression, unspecified; Z87.891 Personal history of nicotine dependence; Z79.01 Long term (current) use of anticoagulants; Z79.899 Other long term (current) drug therapy; Z88.6 Allergy status to analgesic agent; Z91.030 Bee allergy status; Z88.8 Allergy status to other drugs, medicaments and biological substances
CPT/HCPCS: 99283; 96372; J1170

== ENCOUNTER 2023-08-31 23:55 | Emergency (ER) | payer OTHER ==
[2023-09-01 01:00] VITALS: TEMP 98.2
[2023-09-01] MEDS ORDERED: METOCLOPRAMIDE 5 MG/ML 2 ML VIAL IVP STA (04:53)
[2023-09-01] MEDS ORDERED: methylPREDNISolone SOD SUCCI 125 MG/2 ML VIAL IV STA (04:53)
[2023-09-01] MEDS ORDERED: diphenhydrAMINE 50 MG/ML 1 ML VIAL IVP STA (04:53)
[2023-09-01 07:28] VITALS: BP 112/65; PULSE 67; RESP 16
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
== END 2023-09-01 07:40 | disposition home or self-care (01) ==
LOC: EC 23:55
DX: G43.909 Migraine, unspecified, not intractable, without status migrainosus (principal); I25.10 Atherosclerotic heart disease of native coronary artery without angina pectoris; F41.9 Anxiety disorder, unspecified; F32.A Depression, unspecified; Z87.891 Personal history of nicotine dependence; Z79.899 Other long term (current) drug therapy; Z79.01 Long term (current) use of anticoagulants; Z88.6 Allergy status to analgesic agent; Z91.030 Bee allergy status; Z88.8 Allergy status to other drugs, medicaments and biological substances; Z90.49 Acquired absence of other specified parts of digestive tract; V89.2XXA Person injured in unspecified motor-vehicle accident, traffic, initial encounter; Y92.411 Interstate highway as the place of occurrence of the external cause
CPT/HCPCS: 99283; 96374; 96375 ×2; J1200; J2765; J2930

== ENCOUNTER 2023-09-13 21:57 | Emergency (ER) | payer OTHER ==
[2023-09-13 22:16] VITALS: TEMP 98.1
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
[2023-09-13] MEDS ORDERED: HYDROmorphone 1 MG/ML 1 ML SYRINGE IM STA (23:58)
--- NOTE | 2023-09-14 00:20 | CT ---
EXAM: CT Head Without Intravenous Contrast CLINICAL HISTORY: ITS.REASON CT Reason: pain TECHNIQUE: Axial computed tomography images of the head/brain without intravenous contrast. CTDI is 45.2 mGy and DLP is 1179 mGy-cm. This CT exam was performed using one or more of the following dose reduction techniques: automated exposure control, adjustment of the mA and/or kV according to patient size, and/or use of iterative reconstruction technique. COMPARISON: No relevant prior studies available. FINDINGS: No acute intracranial hemorrhage. No midline shift or mass effect. The territorial waldron-white matter differentiation is maintained throughout. Age-related cerebral volume loss. Periventricular and subcortical white matter hypoattenuation, consistent with chronic microangiopathy. The visualized orbits appear grossly unremarkable. The calvarium is intact. Paranasal sinus mucosal thickening. LEFT parietal scalp soft tissue swelling. IMPRESSION: No acute intracranial hemorrhage, midline shift, or mass effect. LEFT parietal scalp soft tissue swelling. EXAM: CT Cervical Spine Without Intravenous Contrast CLINICAL HISTORY: ITS.REASON CT Reason: pain TECHNIQUE: Axial computed tomography images of the cervical spine without intravenous contrast. CTDI is 17.1 mGy and DLP is 500.8 mGy-cm. This CT exam was performed using one or more of the following dose reduction techniques: automated exposure control, adjustment of the mA and/or kV according to patient size, and/or use of iterative reconstruction technique. COMPARISON: No relevant prior studies available. FINDINGS: The vertebral body heights are maintained. The craniocervical junction is intact. The atlanto-dens interval is maintained. The dens is intact. There is no spondylolisthesis. Multilevel cervical spondylosis and degenerative disc disease. Straightening of the cervical lordosis. The unenhanced neck soft tissues are grossly unremarkable. The visualized lung apices are grossly clear. IMPRESSION: No acute fracture or subluxation of the cervical spine.
[2023-09-14] MEDS ORDERED: HYDROmorphone 0.5 MG/0.5 ML SYRINGE IM STA (01:18)
[2023-09-14 02:27] VITALS: BP 107/67; PULSE 71; RESP 18
== END 2023-09-14 02:07 | disposition home or self-care (01) ==
LOC: EC 21:57
DX: S09.90XA Unspecified injury of head, initial encounter (principal); I25.10 Atherosclerotic heart disease of native coronary artery without angina pectoris; F41.9 Anxiety disorder, unspecified; F32.A Depression, unspecified; Z87.891 Personal history of nicotine dependence; Z79.899 Other long term (current) drug therapy; Z79.01 Long term (current) use of anticoagulants; Z91.030 Bee allergy status; Z88.8 Allergy status to other drugs, medicaments and biological substances; W17.89XA Other fall from one level to another, initial encounter
CPT/HCPCS: 70450; 72125; 96372; 99284

== ENCOUNTER 2023-09-19 00:05 | Emergency (ER) | payer OTHER ==
--- NOTE | 2023-09-19 00:33 | ED ---
General Adult HPI - General Chief complaint: Extremity Injury, Lower Stated complaint: Left Knee Injury Time Seen by Provider: 09/19/23 00:10 Source: patient, RN notes reviewed, old records reviewed Mode of arrival: ambulatory Limitations: no limitations - History of Present Illness Initial comments: 42-year-old male with left knee pain. Patient was hunting earlier today, had been dragging a deer out of the words that was quite heavy. Minor fall with injury to the left knee. He's been ambulatory on the knee throughout the day today but his had some generalized soreness. - Related Data Home Medications Medication Instructions Recorded Confirmed PARoxetine HCL [Paxil] 60 mg PO DAILY 08/22/19 09/01/23 traZODone HCL 300 mg PO HS PRN 10/09/20 09/01/23 Prazosin HCl 6 mg PO HS 06/05/22 09/01/23 EPINEPHrine (Auto Inject) [Epipen] 0.3 mg IM ONCE PRN 10/16/22 09/01/23 Apixaban [Eliquis] 5 mg PO BID 02/18/23 02/18/23 HYDROcodone/APAP 10-325MG [[place] 1 tab PO Q6H 02/18/23 09/01/23 10-325] Metoprolol Tartrate [Lopressor] 12.5 mg PO BID 02/18/23 09/01/23 methocarbamoL [Robaxin] 500 mg PO HS PRN 02/18/23 09/01/23 Acetaminophen Tab [Tylenol] 325 mg PO Q6H PRN 09/01/23 09/01/23 Albuterol Sulfate [Albuterol 2 puff PO RT-Q6H PRN 09/01/23 09/01/23 Sulfate Hfa] Atorvastatin [Lipitor] 20 mg PO HS 09/01/23 09/01/23 Cholestyramine (with Sugar) 4 gm PO DAILY 09/01/23 09/01/23 [Cholestyramine Packet] Diclofenac Sodium [Diclofenac 1 applic TOPICAL BID PRN 09/01/23 09/01/23 Sodium 1%] Naloxone HCl [Narcan] 4 mg NASAL DIRECTED PRN 09/01/23 09/01/23 Rizatriptan Odt [Maxalt Pulp Refiner Operator] 10 mg PO BID PRN 09/01/23 09/01/23 Topiramate [Topamax] 1 dose PO DIRECTED 09/01/23 09/01/23 Previous Rx's Medication Instructions Recorded Isosorbide Mononitrate ER [Imdur] 30 mg PO DAILY #30 tab 06/08/22 Lidocaine 5% Patch [Lidoderm 5% 1 patch TOPICAL DAILY PRN #7 patch 04/03/23 Patch] Allergies Allergy/AdvReac Type Severity Reaction Status Date / Time ketorolac tromethamine Allergy Rash/Hives/Swelling Verified 09/19/23 00:09 [From Toradol] at injection site venom-honey bee Allergy Anaphylaxis Verified 09/19/23 00:09 [bee venom (honey bee)] droperidol AdvReac Nausea & Verified 09/19/23 00:09 Vomiting & Diarrhea naproxen AdvReac Nausea & Verified 09/19/23 00:09 Vomiting & Diarrhea Review of Systems ROS Statement: Those systems with pertinent positive or pertinent negative responses have been documented in the HPI. ROS Other: All systems not noted in ROS Statement are negative. Past Medical History Past Medical History: Coronary Artery Disease (CAD), Deep Vein Thrombosis (DVT) Additional Past Medical History / Comment(s): chronic knee pain, back pain, RBBB, elevated heart rate. History of Any Multi-Drug Resistant Organisms: MRSA Date of last positivie culture/infection: 2008 MDRO Source:: thumb Past Surgical History: Appendectomy, Back Surgery, Cholecystectomy, Heart Catheterization With Stent, Orthopedic Surgery Additional Past Surgical History / Comment(s): l4-5 fusion march 2020,l4-s1 fusion in 12/2021, carpel tunnnel release, vascectomy, skin graft knee surg x4, right hip surgery. lower bowel surgery, cholecystectomy 10/2022 Past Anesthesia/Blood Transfusion Reactions: No Reported Reaction Past Psychological History: Anxiety, Depression, PTSD Smoking Status: Former smoker Past Alcohol Use History: Occasional Past Drug Use History: None Reported - Past Family History Father Family Medical History: No Reported History Additional Family Medical History / Comment(s): Father is alive at age 61 was no major medical problems. Mother Family Medical History: No Reported History Additional Family Medical History / Comment(s): Mother is alive at age 56 with history of spinal surgeries and neurological disorders. one sister with no major medical problems. Patient has 1 son and 1 daughter with no major medical problems. General Exam Limitations: no limitations General appearance: alert, in no apparent distress Head exam: Present: atraumatic, normocephalic Eye exam: Present: normal appearance, PERRL ENT exam: Present: normal exam Neck exam: Present: normal inspection. Absent: tenderness, meningismus Respiratory exam: Present: normal lung sounds bilaterally. Absent: respiratory distress, wheezes Cardiovascular Exam: Present: regular rate, normal rhythm GI/Abdominal exam: Present: soft. Absent: distended, tenderness Extremities exam: Present: normal inspection, normal capillary refill. Absent: pedal edema, joint swelling (Normal range of motion of the left knee, no swelling, no erythema, no external signs trauma.) Course Vital Signs 09/19/23 00:07 Temperature 97.9 F Pulse Rate 74 Respiratory 18 Rate Blood Pressure 118/78 O2 Sat by Pulse 98 Oximetry Medical Decision Making - Medical Decision Making Was pt. sent in by a medical professional or institution (COLTON Muhammad, CONDUIT HELPER, urgent care, hospital, or intermediate...) When possible be specific @ -No Did you speak to anyone other than the patient for history (EMS, parent, family, police, friend...)? What history was obtained from this source @ -No Did you review nursing and triage notes (agree or disagree)? Why? @ -I reviewed and agree with nursing and triage notes Were old charts reviewed (outside hosp., previous admission, EMS record, old EKG, old radiological studies, urgent care reports/EKG's, intermediate records)? Report findings @ -No old charts were reviewed Differential Diagnosis (chest pain, altered mental status, abdominal pain women, abdominal pain men, vaginal bleeding, weakness, fever, dyspnea, syncope, headache, dizziness, GI bleed, back pain, seizure, CVA, palpatations, mental health, musculoskeletal)? @ Differential Musculoskeletal Muscular strain, contusion, ligament sprain, fracture, arthritis, septic arthritis, bursitis, cellulitis, muscle spasm, nerve compression, DVT, arterial occlusion, herpes zoster, electrolyte abnormality, tumor.... This is not meant to be in all inclusive list EKG interpreted by me (3pts min.). @ -As above X-rays interpreted by me (1pt min.). @ -None done CT interpreted by me (1pt min.). @ -None done U/S interpreted by me (1pt. min.). @ -None done What testing was considered but not performed or refused? (CT, X-rays, U/S, labs)? Why? @ -None What meds were considered but not given or refused? Why? @ -None Did you discuss the management of the patient with other professionals (professionals i.e. , PA, CONDUIT HELPER, lab, RT, psych nurse, social media editor, laborer egg producing farm, teacher, antisubmarine weapons officer, case resource manager)? Give summary @ -No Was smoking cessation discussed for >3mins.? @ -No Was critical care preformed (if so, how long)? @ -No Were there social determinants of health that impacted care today? How? (Homelessness, low income, unemployed, alcoholism, drug addiction, transportation, low edu. Level, literacy, decrease access to med. care, assisted, rehab)? @ -No Was there de-escalation of care discussed even if they declined (Discuss DNR or withdrawal of care, Hospice)? DNR status @ -No What co-morbidities impacted this encounter? (DM, HTN, Smoking, COPD, CAD, Canc er, CVA, ARF, Chemo, Hep., AIDS, mental health diagnosis, sleep apnea, morbid obesity)? @ -None Was patient admitted / discharged? Hospital course, mention meds given and route, prescriptions, significant lab abnormalities, going to OR and other pertinent info. @ -42-year-old male with left knee sprain, no external signs trauma, no swelling, patient is ambulatory. He has both a prescription strength Motrin and [place] at home. Ice, elevate the extremity and follow with his primary care provider. Undiagnosed new problem with uncertain prognosis? @ -No Drug Therapy requiring intensive monitoring for toxicity (Heparin, Nitro, Insulin, Cardizem)? @ -No Were any procedures done? @ -No Diagnosis/symptom? @ -Left knee sprain Acute, or Chronic, or Acute on Chronic? @ -[acute Uncomplicated (without systemic symptoms) or Complicated (systemic symptoms)? @ -default Side effects of treatment? @ -No Exacerbation, Progression, or Severe Exacerbation? @ -No Poses a threat to life or bodily function? How? (Chest pain, [place], [place], pneumonia, PE, COPD, DKA, ARF, appy, cholecystitis, CVA, Diverticulitis, Homicidal, Suicidal, threat to staff... and all critical care pts) @ -No Disposition Clinical Impression: Knee sprain Disposition: HOME SELF-CARE Condition: Good Instructions (If sedation given, give patient instructions): Knee Sprain (ED) Is patient prescribed a controlled substance at d/c from ED?: No Referrals: Xavier Reeder MD [Primary Care Provider] - 1-2 days Time of Disposition: 00:33
[2023-09-19 01:23] VITALS: BP 118/78; PULSE 74; RESP 18; TEMP 97.9
== END 2023-09-19 00:42 | disposition home or self-care (01) ==
LOC: EC 00:05
DX: S83.92XA Sprain of unspecified site of left knee, initial encounter (principal); I25.10 Atherosclerotic heart disease of native coronary artery without angina pectoris; F32.A Depression, unspecified; F41.9 Anxiety disorder, unspecified; Z79.899 Other long term (current) drug therapy; Z79.01 Long term (current) use of anticoagulants; Z86.718 Personal history of other venous thrombosis and embolism; Z87.891 Personal history of nicotine dependence; Z88.6 Allergy status to analgesic agent; Z91.030 Bee allergy status; Z88.8 Allergy status to other drugs, medicaments and biological substances; Z90.49 Acquired absence of other specified parts of digestive tract; W19.XXXA Unspecified fall, initial encounter
CPT/HCPCS: 99283

== ENCOUNTER 2023-11-04 00:06 | Emergency (ER) | payer OTHER ==
--- NOTE | 2023-11-04 01:28 | ED ---
General Adult HPI <Jamie Villeda - Last Filed: 11/04/23 01:30> - History of Present Illness -: days(s) Location: abdomen Radiation: non-radiation Severity scale (1-10): 6 Consistency: constant Improves with: none Worsens with: none Associated Symptoms: denies other symptoms Treatments Prior to Arrival: none <Chi Wade - Last Filed: 11/14/23 17:54> - General Stated complaint: Migraine - History of Present Illness Initial comments: 42 year-old male presents to the ED with a chief complaint of headache. Patient notes history of migraines and states that his symptoms are typically well-m anaged with Topamax and Rimegepant her today states he took 2 Rimegepant notes he has had no relief with this as he usually does and states that his headache is worse than usual. Due to this, he called his neurologist who advised him to present to the ED for further evaluation. (Jamie Villeda) This is a 42-year-old male to the emergency department for evaluation of headach e, patient is well-known to our hospital for recurrent and persistent, recurrent and persistent pain (Chi Wade) - Related Data Home Medications Medication Instructions Recorded Confirmed PARoxetine HCL [Paxil] 60 mg PO DAILY 08/22/19 09/01/23 traZODone HCL 300 mg PO HS PRN 10/09/20 09/01/23 Prazosin HCl 6 mg PO HS 06/05/22 09/01/23 EPINEPHrine (Auto Inject) [Epipen] 0.3 mg IM ONCE PRN 10/16/22 09/01/23 Apixaban [Eliquis] 5 mg PO BID 02/18/23 02/18/23 HYDROcodone/APAP 10-325MG [[place] 1 tab PO Q6H 02/18/23 09/01/23 10-325] Metoprolol Tartrate [Lopressor] 12.5 mg PO BID 02/18/23 09/01/23 methocarbamoL [Robaxin] 500 mg PO HS PRN 02/18/23 09/01/23 Acetaminophen Tab [Tylenol] 325 mg PO Q6H PRN 09/01/23 09/01/23 Albuterol Sulfate [Albuterol 2 puff PO RT-Q6H PRN 09/01/23 09/01/23 Sulfate Hfa] Atorvastatin [Lipitor] 20 mg PO HS 09/01/23 09/01/23 Cholestyramine (with Sugar) 4 gm PO DAILY 09/01/23 09/01/23 [Cholestyramine Packet] Diclofenac Sodium [Diclofenac 1 applic TOPICAL BID PRN 09/01/23 09/01/23 Sodium 1%] Naloxone HCl [Narcan] 4 mg NASAL DIRECTED PRN 09/01/23 09/01/23 Rizatriptan Odt [Maxalt Film Or Tape Librarian] 10 mg PO BID PRN 09/01/23 09/01/23 Topiramate [Topamax] 1 dose PO DIRECTED 09/01/23 09/01/23 Previous Rx's Medication Instructions Recorded Isosorbide Mononitrate ER [Imdur] 30 mg PO DAILY #30 tab 06/08/22 Lidocaine 5% Patch [Lidoderm 5% 1 patch TOPICAL DAILY PRN #7 patch 04/03/23 Patch] Allergies Allergy/AdvReac Type Severity Reaction Status Date / Time ketorolac tromethamine Allergy Rash/Hives/Swelling Verified 11/07/23 00:17 [From Toradol] at injection site venom-honey bee Allergy Anaphylaxis Verified 11/07/23 00:17 [bee venom (honey bee)] droperidol AdvReac Nausea & Verified 11/07/23 00:17 Vomiting & Diarrhea naproxen AdvReac Nausea & Verified 11/07/23 00:17 Vomiting & Diarrhea Review of Systems ROS Other: All systems not noted in ROS Statement are negative. <Jamie Villeda - Last Filed: 11/04/23 01:30> ROS Other: All systems not noted in ROS Statement are negative. <Chi Wade - Last Filed: 11/14/23 17:54> ROS Statement: Those systems with pertinent positive or pertinent negative responses have been documented in the HPI. Past Medical History Past Medical History: Coronary Artery Disease (CAD), Deep Vein Thrombosis (DVT) Additional Past Medical History / Comment(s): chronic knee pain, back pain, RBBB, elevated heart rate. History of Any Multi-Drug Resistant Organisms: MRSA Date of last positivie culture/infection: 2008 MDRO Source:: thumb Past Surgical History: Appendectomy, Back Surgery, Cholecystectomy, Heart Catheterization With Stent, Orthopedic Surgery Additional Past Surgical History / Comment(s): l4-5 fusion march 2020,l4-s1 fusion in 12/2021, carpel tunnnel release, vascectomy, skin graft knee surg x4, right hip surgery. lower bowel surgery, cholecystectomy 10/2022 Past Anesthesia/Blood Transfusion Reactions: No Reported Reaction Past Psychological History: Anxiety, Depression, PTSD Smoking Status: Former smoker Past Alcohol Use History: Occasional Past Drug Use History: None Reported - Past Family History Father Family Medical History: No Reported History Additional Family Medical History / Comment(s): Father is alive at age 61 was no major medical problems. Mother Family Medical History: No Reported History Additional Family Medical History / Comment(s): Mother is alive at age 56 with history of spinal surgeries and neurological disorders. one sister with no major medical problems. Patient has 1 son and 1 daughter with no major medical problems. <Jamie Villeda - Last Filed: 11/04/23 01:30> General Exam <Jamie Villeda - Last Filed: 11/04/23 01:30> General appearance: alert, in no apparent distress Head exam: Present: atraumatic, normocephalic, normal inspection Eye exam: Present: normal appearance, PERRL, EOMI. Absent: scleral icterus, conjunctival injection, periorbital swelling ENT exam: Present: normal exam, mucous membranes moist Neck exam: Present: normal inspection. Absent: tenderness, meningismus, lymphadenopathy Respiratory exam: Present: normal lung sounds bilaterally. Absent: respiratory distress, wheezes, rales, rhonchi, stridor Cardiovascular Exam: Present: regular rate, normal rhythm, normal heart sounds. Absent: systolic murmur, diastolic murmur, rubs, gallop, clicks GI/Abdominal exam: Present: soft, normal bowel sounds. Absent: distended, tenderness, guarding, rebound, rigid Extremities exam: Present: normal inspection, full ROM, normal capillary refill. Absent: tenderness, pedal edema, joint swelling, calf tenderness Back exam: Present: normal inspection Neurological exam: Present: alert, oriented X3, CN II-XII intact Psychiatric exam: Present: normal affect, normal mood Skin exam: Present: warm, dry, intact, normal color. Absent: rash <Chi Waed - Last Filed: 11/14/23 17:54> - General Exam Comments Initial Comments: Visual Physical Exam Vital signs reviewed General: Well-appearing, nontoxic, no acute distress. Head: Normocephalic, atraumatic Eyes: PERRLA, EOMI ENT: Airway patent Chest: Nonlabored breathing Skin: No visual rash, normal skin tone Neuro: Alert and oriented 3 Musculoskeletal: No gross abnormalities (Ethanatu,Jamie) Course <Chi Wade - Last Filed: 11/14/23 17:54> Vital Signs 11/04/23 11/04/23 01:44 05:38 Temperature 97.9 F Pulse Rate 71 78 Respiratory 18 18 Rate Blood Pressure 107/69 148/82 O2 Sat by Pulse 97 98 Oximetry - Reevaluation(s) Reevaluation #1: Medical record is reviewed (Chi Wade) Reevaluation #2: Patient symptoms are improved (Chi Wade) Reevaluation #3: Patient informed of results and questions answered (Chi Wade) Reevaluation #4: 11/04/23 06:19 Was pt. sent in by a medical professional or institution (, PA, VISUAL MERCHANDISING COORDINATOR, urgent ca re, hospital, or [facility]...) When possible be specific @ -no Did you speak to anyone other than the patient for history (EMS, parent, family, police, friend...)? What history was obtained from this source @ -no Did you review nursing and triage notes (agree or disagree)? Why? @ -agree Are old charts reviewed (outside hosp., previous admission, EMS record, old EKG, old radiological studies, urgent care reports/EKG's, [facility] records)? Report findings @ -yes Differential Diagnosis (chest pain, altered mental status, abdominal pain women, abdominal pain men, vaginal bleeding, weakness, fever, dyspnea, syncope, headache, dizziness, GI bleed, back pain, seizure, CVA, palpatations, mental health, musculoskeletal)? @ -prior EKG interpreted by me (3pts min.). @ -no X-rays interpreted by me (1pt min.). @ -no CT interpreted by me (1pt min.). @ -no U/S interpreted by me (1pt. min.). @ -no What testing was considered but not performed or refused? (CT, X-rays, U/S, labs)? Why? @ -none What meds were considered but not given or refused? Why? @ -none Did you discuss the management of the patient with other professionals (professionals i.e. , PA, VISUAL MERCHANDISING COORDINATOR, lab, RT, psych nurse, social media strategist, automotive technology instructor, teacher, chief development officer, watch case polisher)? Give summary @ -no Was smoking cessation discussed for >3mins.? @ -no Was critical care preformed (if so, how long)? @ -no Were there social determinants of health that impacted care today? How? (Homelessness, low income, unemployed, alcoholism, drug addiction, transportation, low edu. Level, literacy, decrease access to med. care, retirement, rehab)? @ -none Was there de-escalation of care discussed even if they declined (Discuss DNR or withdrawal of care, Hospice)? DNR status @ -no What co-morbidities impacted this encounter? (DM, HTN, Smoking, COPD, CAD, Cancer, CVA, ARF, Chemo, Hep., AIDS, mental health diagnosis, sleep apnea, morbid obesity)? @ -none Was patient admitted / discharged? Hospital course, mention meds given and route, prescriptions, significant lab abnormalities, going to OR and other pertinent info. @ - 42 male to the emergency department for evaluation of headache today. Patient's headache is improved here in the area can be discharged home Discharged Undiagnosed new problem with uncertain prognosis? @ -no Drug Therapy requiring intensive monitoring for toxicity (Heparin, Nitro, Insulin, Cardizem)? @ -no Were any procedures done? @ -no Diagnosis/symptom? @ -Migraine headache Acute, or Chronic, or Acute on Chronic? @ -Acute Uncomplicated (without systemic symptoms) or Complicated (systemic symptoms)? @ -Complicated Side effects of treatment? @ -no Exacerbation, Progression, or Severe Exacerbation? @ -exacerbation Poses a threat to life or bodily function? How? (Chest pain, [place], [place], pneumonia, PE, COPD, DKA, ARF, appy, cholecystitis, CVA, Diverticulitis, Homicidal, Suicidal, threat to staff... and all critical care pts) @ -no (Chi Wade) Reevaluation #5: 11/04/23 06:19 Differential Headache: Migraine, tension, cluster, carbon monoxide, central venous thrombosis, pension karma temporal arteritis, acute closure glaucoma, intercranial hemorrhage, mastoiditis, sinusitis, head injury, this is not meant to be an all-inclusive list. (hCi Wade) Medical Decision Making <Jamie Villeda - Last Filed: 11/04/23 01:30> - Lab Data Result diagrams: 11/04/23 01:53 11/04/23 01:53 <Chi Wade - Last Filed: 11/14/23 17:54> - Medical Decision Making Quicknote portion performed. Signed Jamie Villeda PA-C (Jamie Villeda) 42 male to the emergency department for evaluation of headache today. Patient's headache is improved here in the area can be discharged home (Chi Wade) - Lab Data Lab Results 11/04/23 11/04/23 11/04/23 Range/Units 01:53 01:53 01:55 WBC 8.5 (3.8-10.6) k/uL RBC 4.65 (4.30-5.90) m/uL Hgb 14.6 (13.0-17.5) gm/dL Hct 42.9 (39.0-53.0) % MCV 92.2 (80.0-100.0) fL MCH 31.4 (25.0-35.0) pg MCHC 34.1 (31.0-37.0) g/dL RDW 12.4 (11.5-15.5) % Plt Count 233 (150-450) k/uL MPV 8.1 Neutrophils % 46 % Lymphocytes % 42 % Monocytes % 6 % Eosinophils % 4 % Basophils % 1 % Neutrophils # 3.9 (1.3-7.7) k/uL Lymphocytes # 3.5 (1.0-4.8) k/uL Monocytes # 0.5 (0-1.0) k/uL Eosinophils # 0.3 (0-0.7) k/uL Basophils # 0.1 (0-0.2) k/uL Sodium 140 (137-145) mmol/L Potassium 3.8 (3.5-5.1) mmol/L Chloride 108 H (98-107) mmol/L Carbon Dioxide 20 L (22-30) mmol/L Anion Gap 12 mmol/L BUN 15 (9-20) mg/dL Creatinine 1.01 (0.66-1.25) mg/dL Est GFR (CKD-EPI)AfAm >90 (>60 ml/min/1.73 sqM) Est GFR (CKD-EPI)NonAf >90 (>60 ml/min/1.73 sqM) Glucose 91 (74-99) mg/dL Calcium 9.8 (8.4-10.2) mg/dL Total Bilirubin 0.4 (0.2-1.3) mg/dL AST 26 (17-59) U/L ALT 47 (4-49) U/L Alkaline Phosphatase 68 (38-126) U/L Total Protein 7.3 (6.3-8.2) g/dL Albumin 4.6 (3.5-5.0) g/dL Urine Color Yellow Urine Appearance Clear (Clear) Urine pH 6.0 (5.0-8.0) Ur Specific [place] 1.022 (1.001-1.035) Urine Protein Negative (Negative) Urine Glucose (UA) Negative (Negative) Urine Ketones Negative (Negative) Urine Blood Negative (Negative) Urine Nitrite Negative (Negative) Urine Bilirubin Negative (Negative) Urine Urobilinogen 3.0 (<2.0) mg/dL Ur Leukocyte Esterase Negative (Negative) Disposition <Jamie Villeda - Last Filed: 11/04/23 01:30> Is patient prescribed a controlled substance at d/c from ED?: No Time of Disposition: 05:00 <Chi Wade - Last Filed: 11/14/23 17:54> Clinical Impression: Headache Disposition: HOME SELF-CARE Condition: Good Instructions (If sedation given, give patient instructions): Acute Headache (ED) Referrals: Xavier Reeder MD [Primary Care Provider] - 1-2 days
[2023-11-04] MEDS ORDERED: ACETAMINOPHEN TAB 500 MG TAB PO STA (01:29)
[2023-11-04] MEDS ORDERED: diphenhydrAMINE 50 MG/ML 1 ML VIAL IVP STA (01:29)
[2023-11-04] MEDS ORDERED: ONDANSETRON 4 MG/2 ML VIAL IVP STA (01:29)
[2023-11-04] MEDS ORDERED: SODIUM CHLORIDE 0.9% 500 ML 500 ML IV STA (01:30)
[2023-11-04 01:48] VITALS: RESP 18; TEMP 97.9
[2023-11-04 02:21] LABS: Basophils # (A) 0.1 k/uL (0-0.2); Basophils % (A) 1 %; Eosinophils # (A) 0.3 k/uL (0-0.7); Eosinophils % (A) 4 %; HCT 42.9 % (39.0-53.0); HGB 14.6 gm/dL (13.0-17.5); Lymphocytes # (A) 3.5 k/uL (1.0-4.8); Lymphocytes % (A) 42 %; MCH 31.4 pg (25.0-35.0); MCHC 34.1 g/dL (31.0-37.0); MCV 92.2 fL (80.0-100.0); Mean Platelet Volume 8.1; Monocytes # (A) 0.5 k/uL (0-1.0); Monocytes % (A) 6 %; Neutrophils # (A) 3.9 k/uL (1.3-7.7); Neutrophils % (A) 46 %; Platelet Count 233 k/uL (150-450); RBC 4.65 m/uL (4.30-5.90); RDW 12.4 % (11.5-15.5); WBC 8.5 k/uL (3.8-10.6)
[2023-11-04 02:22] LABS: Appearance,Urine Clear (Clear); Bilirubin,Urine Negative (Negative); Blood,Urine Negative (Negative); Color,Urine Yellow; Glucose,Urine (UA) Negative (Negative); Ketones,Urine Negative (Negative); Leukocyte Esterase,Urine Negative (Negative); Nitrite,Urine Negative (Negative); Protein,Urine Negative (Negative); Specific Gravity,Urine 1.022 (1.001-1.035)
[2023-11-04 02:45] LABS: ALT 47 U/L (4-49); AST 26 U/L (17-59); African American GFR (CKD) >90 (>60 ml/min/1.73 sqM); Albumin 4.6 g/dL (3.5-5.0); Alkaline Phosphatase 68 U/L (38-126); Anion Gap 12 mmol/L; Blood Urea Nitrogen 15 mg/dL (9-20); Calcium 9.8 mg/dL (8.4-10.2); Carbon Dioxide 20 mmol/L (22-30); Chloride 108 mmol/L (98-107); Glucose 91 mg/dL (74-99); Non-African American GFR(CKD) >90 (>60 ml/min/1.73 sqM); Potassium 3.8 mmol/L (3.5-5.1); Sodium 140 mmol/L (137-145); Total Bilirubin 0.4 mg/dL (0.2-1.3); Total Protein 7.3 g/dL (6.3-8.2)
--- NOTE | 2023-11-04 02:49 | CT ---
EXAM: CT Head Without Intravenous Contrast CLINICAL HISTORY: ITS.REASON CT Reason: GRIMES TECHNIQUE: Axial computed tomography images of the head/brain without intravenous contrast. CTDI is 49.2 mGy and DLP is 1226.4 mGy-cm. This CT exam was performed using one or more of the following dose reduction techniques: automated exposure control, adjustment of the mA and/or kV according to patient size, and/or use of iterative reconstruction technique. COMPARISON: No relevant prior studies available. FINDINGS: Brain: No hemorrhage or mass effect. Ventricles: No hydrocephalus. Bones/joints: Unremarkable. Soft tissues: Unremarkable. Sinuses: Right maxillary sinus air fluid level With hyperostosis Mastoid air cells: Clear. IMPRESSION: No acute hemorrhage, hydrocephalus, or mass effect. Correlate with acute on chronic right maxillary sinusitis.
[2023-11-04] MEDS ORDERED: IBUPROFEN 600 MG STARTER PACK 4 TAB BTL PO STA (04:59)
[2023-11-04] MEDS ORDERED: Acetaminophen-Codeine 300-30mg TAB PO STA (04:59)
[2023-11-04] MEDS ORDERED: ACET/COD 300 MG/30 MG STARTER PACK 6 TAB BTL PO STA (04:59)
[2023-11-04] MEDS ORDERED: PROCHLORPERAZINE 5 MG TAB PO ONE (05:15)
[2023-11-04 05:51] VITALS: BP 148/82; PULSE 78
== END 2023-11-04 05:38 | disposition home or self-care (01) ==
LOC: EC 00:06
DX: G43.909 Migraine, unspecified, not intractable, without status migrainosus (principal); I25.10 Atherosclerotic heart disease of native coronary artery without angina pectoris; F41.9 Anxiety disorder, unspecified; F32.A Depression, unspecified; Z90.49 Acquired absence of other specified parts of digestive tract; Z79.01 Long term (current) use of anticoagulants; Z79.899 Other long term (current) drug therapy; Z91.030 Bee allergy status; Z88.6 Allergy status to analgesic agent; Z88.8 Allergy status to other drugs, medicaments and biological substances; Z87.891 Personal history of nicotine dependence; Z86.718 Personal history of other venous thrombosis and embolism
CPT/HCPCS: 99284 ×2; 36415; 80053; 85025; 81003; 70450; S0183

== ENCOUNTER 2023-11-07 00:13 | Emergency (ER) | payer OTHER ==
[2023-11-07 00:25] VITALS: BP 128/78; PULSE 87; RESP 18; TEMP 97.4
[2023-11-07] MEDS ORDERED: traMADol 50 MG STARTER PACK 3 TAB BTL PO STA (00:38)
[2023-11-07] MEDS ORDERED: traMADol 50 MG TAB PO STA (00:38)
[2023-11-07] MEDS ORDERED: droPERidol 5 MG/2 ML VIAL IM ONE (00:38)
[2023-11-07] MEDS ORDERED: dexAMETHasone 2 MG TAB PO STA (00:38)
[2023-11-07] MEDS ORDERED: ACETAMINOPHEN TAB 500 MG TAB PO STA (00:38)
[2023-11-07] MEDS ORDERED: ONDANSETRON 4 MG ODT STARTER PACK 2 TAB BTL PO STA (00:38)
--- NOTE | 2023-11-07 00:39 | ED ---
Headache HPI - General Chief Complaint: Headache Stated Complaint: Migraine Time Seen by Provider: 11/07/23 00:27 Source: RN notes reviewed, old records reviewed Mode of arrival: ambulatory Limitations: no limitations - History of Present Illness Initial Comments: This is a 42-year-old male to the ER today for evaluation of a headache. Patient has a persistent headache here in the emergency department migraine headache with recent visit for similar headache. Patient has no trauma no fevers no other complaints denies any neurological symptoms, this is his normal migraine headache worse MD Complaint: headache, "migraine" -: days(s) Onset Description: gradual Location: right, left, frontal Severity scale (1-10): 5 Quality: aching, throbbing Consistency: constant Improves With: nothing Worsens With: none Associated Symptoms: nausea Other Symptoms: other (0) Treatments Prior to Arrival: none - Related Data Home Medications Medication Instructions Recorded Confirmed PARoxetine HCL [Paxil] 60 mg PO DAILY 08/22/19 09/01/23 traZODone HCL 300 mg PO HS PRN 10/09/20 09/01/23 Prazosin HCl 6 mg PO HS 06/05/22 09/01/23 EPINEPHrine (Auto Inject) [Epipen] 0.3 mg IM ONCE PRN 10/16/22 09/01/23 Apixaban [Eliquis] 5 mg PO BID 02/18/23 02/18/23 HYDROcodone/APAP 10-325MG [[place] 1 tab PO Q6H 02/18/23 09/01/23 10-325] Metoprolol Tartrate [Lopressor] 12.5 mg PO BID 02/18/23 09/01/23 methocarbamoL [Robaxin] 500 mg PO HS PRN 02/18/23 09/01/23 Acetaminophen Tab [Tylenol] 325 mg PO Q6H PRN 09/01/23 09/01/23 Albuterol Sulfate [Albuterol 2 puff PO RT-Q6H PRN 09/01/23 09/01/23 Sulfate Hfa] Atorvastatin [Lipitor] 20 mg PO HS 09/01/23 09/01/23 Cholestyramine (with Sugar) 4 gm PO DAILY 09/01/23 09/01/23 [Cholestyramine Packet] Diclofenac Sodium [Diclofenac 1 applic TOPICAL BID PRN 09/01/23 09/01/23 Sodium 1%] Naloxone HCl [Narcan] 4 mg NASAL DIRECTED PRN 09/01/23 09/01/23 Rizatriptan Odt [[employer] Employee Benefits Coordinator] 10 mg PO BID PRN 09/01/23 09/01/23 Topiramate [Topamax] 1 dose PO DIRECTED 09/01/23 09/01/23 Previous Rx's Medication Instructions Recorded Isosorbide Mononitrate ER [Imdur] 30 mg PO DAILY #30 tab 06/08/22 Lidocaine 5% Patch [Lidoderm 5% 1 patch TOPICAL DAILY PRN #7 patch 04/03/23 Patch] Allergies Allergy/AdvReac Type Severity Reaction Status Date / Time ketorolac tromethamine Allergy Rash/Hives/Swelling Verified 11/07/23 00:17 [From Toradol] at injection site venom-honey bee Allergy Anaphylaxis Verified 11/07/23 00:17 [bee venom (honey bee)] droperidol AdvReac Nausea & Verified 11/07/23 00:17 Vomiting & Diarrhea naproxen AdvReac Nausea & Verified 11/07/23 00:17 Vomiting & Diarrhea Review of Systems ROS Statement: Those systems with pertinent positive or pertinent negative responses have been documented in the HPI. ROS Other: All systems not noted in ROS Statement are negative. Past Medical History Past Medical History: Coronary Artery Disease (CAD), Deep Vein Thrombosis (DVT) Additional Past Medical History / Comment(s): chronic knee pain, back pain, RBBB, elevated heart rate. History of Any Multi-Drug Resistant Organisms: MRSA Date of last positivie culture/infection: 2008 MDRO Source:: thumb Past Surgical History: Appendectomy, Back Surgery, Cholecystectomy, Heart Catheterization With Stent, Orthopedic Surgery Additional Past Surgical History / Comment(s): l4-5 fusion march 2020,l4-s1 fusion in 12/2021, carpel tunnnel release, vascectomy, skin graft knee surg x4, right hip surgery. lower bowel surgery, cholecystectomy 10/2022 Past Anesthesia/Blood Transfusion Reactions: No Reported Reaction Past Psychological History: Anxiety, Depression, PTSD Smoking Status: Former smoker Past Alcohol Use History: Occasional Past Drug Use History: None Reported - Past Family History Father Family Medical History: No Reported History Additional Family Medical History / Comment(s): Father is alive at age 61 was no major medical problems. Mother Family Medical History: No Reported History Additional Family Medical History / Comment(s): Mother is alive at age 56 with history of spinal surgeries and neurological disorders. one sister with no major medical problems. Patient has 1 son and 1 daughter with no major medical problems. General Exam Limitations: no limitations General appearance: alert, in no apparent distress Head exam: Present: atraumatic, normocephalic, normal inspection Eye exam: Present: normal appearance, PERRL, EOMI. Absent: scleral icterus, conjunctival injection, periorbital swelling ENT exam: Present: normal exam, mucous membranes moist Neck exam: Present: normal inspection. Absent: tenderness, meningismus, lymphadenopathy Respiratory exam: Present: normal lung sounds bilaterally. Absent: respiratory distress, wheezes, rales, rhonchi, stridor Cardiovascular Exam: Present: regular rate, normal rhythm, normal heart sounds. Absent: systolic murmur, diastolic murmur, rubs, gallop, clicks GI/Abdominal exam: Present: soft, normal bowel sounds. Absent: distended, tenderness, guarding, rebound, rigid Extremities exam: Present: normal inspection, full ROM, normal capillary refill. Absent: tenderness, pedal edema, joint swelling, calf tenderness Back exam: Present: normal inspection Neurological exam: Present: alert, oriented X3, CN II-XII intact Psychiatric exam: Present: normal affect, normal mood Skin exam: Present: warm, dry, intact, normal color. Absent: rash Course Vital Signs 11/07/23 00:18 Temperature 97.4 F L Pulse Rate 87 Respiratory 18 Rate Blood Pressure 128/78 O2 Sat by Pulse 97 Oximetry - Reevaluation(s) Reevaluation #1: Medical record is reviewed Reevaluation #2: Patient symptoms are improved Reevaluation #3: Patient informed results and questions answered Reevaluation #4: Was pt. sent in by a medical professional or institution (, PA, WORK OVER RIG OPERATOR, urgent care, hospital, or fdc...) When possible be specific @ -no Did you speak to anyone other than the patient for history (EMS, parent, family, police, friend...)? What history was obtained from this source @ -no Did you review nursing and triage notes (agree or disagree)? Why? @ -agree Are old charts reviewed (outside hosp., previous admission, EMS record, old EKG, old radiological studies, urgent care reports/EKG's, fdc records)? Report findings @ -yes Differential Diagnosis (chest pain, altered mental status, abdominal pain women, abdominal pain men, vaginal bleeding, weakness, fever, dyspnea, syncope, headache, dizziness, GI bleed, back pain, seizure, CVA, palpatations, mental health, musculoskeletal)? @ -prior EKG interpreted by me (3pts min.). @ -no X-rays interpreted by me (1pt min.). @ -no CT interpreted by me (1pt min.). @ -no U/S interpreted by me (1pt. min.). @ -no What testing was considered but not performed or refused? (CT, X-rays, U/S, labs)? Why? @ -none What meds were considered but not given or refused? Why? @ -none Did you discuss the management of the patient with other professionals (professionals i.e. , PA, WORK OVER RIG OPERATOR, lab, RT, psych nurse, social media assistant, hone operator, teacher, aoc operations intelligence officer, director of casework)? Give summary @ -no Was smoking cessation discussed for >3mins.? @ -no Were there social determinants of health that impacted care today? How? (Homelessness, low income, unemployed, alcoholism, drug addiction, transportation, low edu. Level, literacy, decrease access to med. care, custodial, rehab)? @ -none Was there de-escalation of care discussed even if they declined (Discuss DNR or withdrawal of care, Hospice)? DNR status @ -no What co-morbidities impacted this encounter? (DM, HTN, Smoking, COPD, CAD, Cancer, CVA, ARF, Chemo, Hep., AIDS, mental health diagnosis, sleep apnea, morbid obesity)? @ -none Was patient admitted / discharged? Hospital course, mention meds given and route, prescriptions, significant lab abnormalities, going to OR and other pertinent info. @ - 45 female to the emergency room for evaluation of sore throat with tonsillar pain and tonsillar abscess. Patient's pain is well-controlled here in the ER can be discharged home Discharge Was critical care preformed (if so, how long)? @ -no Undiagnosed new problem with uncertain prognosis? @ -no Drug Therapy requiring intensive monitoring for toxicity (Heparin, Nitro, In sulin, Cardizem)? @ -no Were any procedures done? @ -no Diagnosis/symptom? @ -Migraine headache Acute, or Chronic, or Acute on Chronic? @ -Acute Uncomplicated (without systemic symptoms) or Complicated (systemic symptoms)? @ -Complicated Side effects of treatment? @ -no Exacerbation, Progression, or Severe Exacerbation? @ -exacerbation Poses a threat to life or bodily function? How? (Chest pain, [place], NM, pneumonia, PE, COPD, DKA, ARF, appy, cholecystitis, CVA, Diverticulitis, Homicidal, Suicidal, threat to staff... and all critical care pts) @ -no Reevaluation #5: Differential Headache: Migraine, tension, cluster, carbon monoxide, central venous thrombosis, pension karma temporal arteritis, acute closure glaucoma, intercranial hemorrhage, mastoiditis, sinusitis, head injury, this is not meant to be an all-inclusive list. Medical Decision Making - Medical Decision Making 42 male the emergency department for evaluation of severe headache with history of migraine headaches. Headache is resolved here in the ER patient feels well can be discharged home Disposition Clinical Impression: Headache, Migraine headache Disposition: HOME SELF-CARE Condition: Good Instructions (If sedation given, give patient instructions): Acute Headache (ED) Is patient prescribed a controlled substance at d/c from ED?: No Referrals: Xavier Reeder MD [Primary Care Provider] - 1-2 days Time of Disposition: 00:30
[2023-11-07] MEDS ORDERED: MORPHINE SULFATE 4 MG/ML SYRINGE IM STA (01:08)
== END 2023-11-07 01:15 | disposition home or self-care (01) ==
LOC: EC 00:13
DX: G43.909 Migraine, unspecified, not intractable, without status migrainosus (principal); I25.10 Atherosclerotic heart disease of native coronary artery without angina pectoris; F41.9 Anxiety disorder, unspecified; F32.A Depression, unspecified; Z87.891 Personal history of nicotine dependence; Z79.01 Long term (current) use of anticoagulants; Z79.899 Other long term (current) drug therapy; Z88.6 Allergy status to analgesic agent; Z91.030 Bee allergy status; Z88.8 Allergy status to other drugs, medicaments and biological substances
CPT/HCPCS: 99284 ×2; 96372; J2270; J8540; S0119

== ENCOUNTER 2024-01-13 09:55 | Day surgery (SDC) | payer OTHER ==
--- NOTE | 2024-01-13 07:30 | P.GSHP ---
History of Present Illness H&P Date: 01/13/24 CHIEF COMPLAINT: GERD and colon screen HISTORY OF PRESENT ILLNESS: The patient is a 43-year-old male who presents with gastroesophageal reflux disease and need for colon screen. Upper and lower endoscopy were offered for further evaluation and management. PAST MEDICAL HISTORY: Please see list. PAST SURGICAL HISTORY: Please see list. MEDICATIONS: Please see list. ALLERGIES: Please see list. SOCIAL HISTORY: No illicit drug use FAMILY HISTORY: No reports of Crohn disease or ulcerative colitis. REVIEW OF ORGAN SYSTEMS: CONSTITUTIONAL: No reports of fevers or chills. GI: Denies any blood in stools or constipation. PHYSICAL EXAM: VITAL SIGNS: Stable GENERAL: Well-developed pleasant in no acute distress. HEENT: No scleral icterus. Extraocular movements grossly intact. Moist buccal mucosa. NECK: Supple without lymphadenopathy. CHEST: Unlabored respirations. Equal bilateral excursions. CARDIOVASCULAR: Regular rate and rhythm. Distal 2+ pulses. ABDOMEN: Soft, nondistended. MUSCULOSKELETAL: No clubbing, cyanosis, or edema. ASSESSMENT: 1. Gastroesophageal reflux disease 2. Colon screen. PLAN: 1. Recommend proceeding with an upper and lower endoscopy Past Medical History Past Medical History: Coronary Artery Disease (CAD), Deep Vein Thrombosis (DVT), GERD/Reflux, Hyperlipidemia Additional Past Medical History / Comment(s): chronic knee pain, back pain, RBBB, elevated heart rate.hiatal hernia History of Any Multi-Drug Resistant Organisms: MRSA Date of last positivie culture/infection: 2008 MDRO Source:: thumb Past Surgical History: Appendectomy, Back Surgery, Bowel Resection, Cholecystectomy, Heart Catheterization, Orthopedic Surgery Additional Past Surgical History / Comment(s): l4-5 fusion march 2020,l4-s1 fusion in 12/2021, carpel tunnnel release, vascectomy, skin graft rt knee surg x4,lft knee surgery right hip surgery. lower bowel surgery, cholecystectomy 10/2022 Past Anesthesia/Blood Transfusion Reactions: No Reported Reaction Smoking Status: Former smoker - Past Family History Father Family Medical History: No Reported History Additional Family Medical History / Comment(s): Father is alive at age 61 was no major medical problems. Mother Family Medical History: No Reported History Additional Family Medical History / Comment(s): Mother is alive at age 56 with history of spinal surgeries and neurological disorders. one sister with no major medical problems. Patient has 1 son and 1 daughter with no major medical problems. Medications and Allergies Home Medications Medication Instructions Recorded Confirmed Type PARoxetine HCL [Paxil] 60 mg PO DAILY 08/22/19 01/11/24 History traZODone HCL 300 mg PO HS PRN 10/09/20 01/11/24 History Isosorbide Mononitrate ER [Imdur] 30 mg PO DAILY #30 tab 06/08/22 01/11/24 Rx EPINEPHrine (Auto Inject) [Epipen] 0.3 mg IM ONCE PRN 10/16/22 01/11/24 History HYDROcodone/APAP 10-325MG [[place] 1 tab PO Q6H 02/18/23 01/11/24 History 10-325] Metoprolol Tartrate [Lopressor] 12.5 mg PO BID 02/18/23 01/11/24 History Acetaminophen Tab [Tylenol] 325 mg PO Q6H PRN 09/01/23 01/11/24 History Albuterol Sulfate [Albuterol 2 puff PO RT-Q6H PRN 09/01/23 01/11/24 History Sulfate Hfa] Atorvastatin [Lipitor] 20 mg PO HS 09/01/23 01/11/24 History Naloxone HCl [Narcan] 4 mg NASAL DIRECTED PRN 09/01/23 01/11/24 History Rizatriptan Odt [[employer] Foreign Languages Department Chair] 10 mg PO BID PRN 09/01/23 01/11/24 History Topiramate [Topamax] 1 dose PO DIRECTED 09/01/23 01/11/24 History Tanzadine(Unk) 4 mg PO DAILY PRN 01/11/24 01/11/24 History Allergies Allergy/AdvReac Type Severity Reaction Status Date / Time ketorolac tromethamine Allergy Rash/Hives/Swelling Verified 01/11/24 11:45 [From Toradol] at injection site venom-honey bee Allergy Anaphylaxis Verified 01/11/24 11:45 [bee venom (honey bee)] droperidol AdvReac Nausea & Verified 01/11/24 11:45 Vomiting & Diarrhea naproxen AdvReac Nausea & Verified 01/11/24 11:45 Vomiting & Diarrhea
[~2024-01-13 09:55] MED LIST: LIDOCAINE 1% (10MG/ML) FOR IV START INTRADERMA PRN
[2024-01-13] MEDS: LACTATED RINGERS 1,000 ML IV SCH (10:13)
[2024-01-13 10:35] VITALS: PULSE 62; RESP 20; TEMP 98.4
[2024-01-13] MEDS ORDERED: LIDOCAINE 2% (PF) 20 MG/ML 5 ML VIAL ONE (10:43)
[2024-01-13] MEDS ORDERED: PROPOFOL 10 MG/ML 20 ML VIAL IV ONE (10:43)
[2024-01-13] MEDS ORDERED: fentaNYL (PF) 50 MCG/ML 2 ML AMP ONE (10:43)
--- NOTE | 2024-01-13 11:40 | P.PCN ---
Date of Procedure: 01/13/24 Description of Procedure: PREOPERATIVE DIAGNOSIS: Gastroesophageal reflux disease. Epigastric abdominal pain POSTOPERATIVE DIAGNOSIS: Gastroesophageal reflux disease. Gastritis without bleeding, chronic Diaphragmatic hiatal hernia OPERATION: Esophagogastroduodenoscopy with biopsies along esophagus, antrum and duodenum SURGEON: Arti Conti MD ANESTHESIA: MAC. INDICATIONS: The patient is a 43-year-old male who presents with epigastric pain and reflux disease. Benefits and risks of the procedure were described. Informed consent was obtained. DESCRIPTION: The patient was brought into the endoscopy suite and laid in the left lateral decubitus position. An Olympus gastroscope was passed along the posterior oropharynx down to the distal esophagus where the squamocolumnar junction was encountered at 42 cm from the incisors. The stomach was entered and no bile reflux was found. Additional findings are listed below. Biopsies with cold forceps were obtained of the antrum. The first through third portion of the duodenum was examined. Retroflexion of the scope confirmed Hill grade 2 lower esophageal valve. The squamocolumnar junction demonstrated LA grade B erosive esophagitis. The stomach was desufflated. The patient tolerated the procedure well. FINDINGS: Squamocolumnar junction 42 cm from the incisors. Diaphragmatic hiatus at 43 cm. Hiatal hernia, 1 cm Hill grade 2 lower esophageal valve. LA grade B erosive esophagitis. Biopsies obtained Biopsies obtained of the duodenum. Chronic gastritis with biopsies obtained. RECOMMENDATIONS: Upper endoscopy as needed.
--- NOTE | 2024-01-13 11:45 | P.PCN ---
Date of Procedure: 01/13/24 Description of Procedure: PREOPERATIVE DIAGNOSIS: Abnormal stool function Change in bowel habits Abdominal pain POSTOPERATIVE DIAGNOSIS: Microscopic colitis Proctitis without bleeding OPERATION: Colonoscopy to the cecum, ileocecal valve and appendiceal orifice. Colonoscopy with random cold forceps biopsies for microscopic colitis SURGEON: Arti Conti MD. ANESTHESIA: MAC. INDICATIONS: The patient is a 43-year-old female who presents with altered stools including change in bowel habits. Benefits and risks were described and informed consent was obtained. DESCRIPTION OF PROCEDURE: The patient had undergone Suprep. The patient had been brought into the operating room and laid in the left lateral decubitus position. After adequate intravenous sedation, the rectum was examined with 2% lidocaine jelly. No external hemorrhoids were encountered. The rectal tone was within normal limits. No lesions were palpated in the rectal vault. An Olympus colonoscope was advanced until the cecum, ileocecal valve and appendiceal orifice were clearly viewed. The prep was excellent. No scattered diverticulosis was encountered. No colonic polyps were found. Cold forceps biopsies randomly were obtained for microscopic colitis including active proctitis. Retroflexion of the scope demonstrated grade 1 internal hemorrhoids without active bleeding or inflammation. The colon was desufflated. The patient had tolerated the procedure well. Withdrawal time was over 6 minutes. FINDINGS: Aronchick preparation quality scale 1 (1-5) Internal hemorrhoids, grade 1 No external prolapsed hemorrhoids. No arteriovenous malformations. No adenomatous polyps. Transverse colon lipoma, 1 cm, undisturbed Cold forceps biopsies obtained for microscopic colitis Active proctitis without bleeding RECOMMENDATIONS: Lower endoscopy as needed Plan - Discharge Summary Discharge Rx Participant: No New Discharge Prescriptions: Continue PARoxetine HCL [Paxil] 60 mg PO DAILY traZODone HCL 300 mg PO HS PRN PRN Reason: Insomnia Isosorbide Mononitrate ER [Imdur] 30 mg PO DAILY #30 tab HYDROcodone/APAP 10-325MG [[place] 10-325] 1 tab PO Q6H Metoprolol Tartrate [Lopressor] 12.5 mg PO BID Rizatriptan Odt [[employer] CIVIL ENGINEERING DESIGNER] 10 mg PO BID PRN PRN Reason: Migraine Headache Albuterol Sulfate [Albuterol Sulfate Hfa] 2 puff PO RT-Q6H PRN PRN Reason: Shortness Of Breath Topiramate [Topamax] 1 dose PO DIRECTED Tanzadine(Unk) 4 mg PO DAILY PRN PRN Reason: muscle spasms EPINEPHrine (Auto Inject) [Epipen] 0.3 mg IM ONCE PRN PRN Reason: Anaphylaxis Naloxone HCl [Narcan] 4 mg NASAL DIRECTED PRN PRN Reason: Overdose Atorvastatin [Lipitor] 20 mg PO HS Acetaminophen Tab [Tylenol] 325 mg PO Q6H PRN PRN Reason: Fever And/ Or Pain Discharge Medication List PARoxetine HCL [Paxil] 60 mg PO DAILY 08/22/19 [History] traZODone HCL 300 mg PO HS PRN 10/09/20 [History] Isosorbide Mononitrate ER [Imdur] 30 mg PO DAILY #30 tab 06/08/22 [Rx] EPINEPHrine (Auto Inject) [Epipen] 0.3 mg IM ONCE PRN 10/16/22 [History] HYDROcodone/APAP 10-325MG [[place] 10-325] 1 tab PO Q6H 02/18/23 [History] Metoprolol Tartrate [Lopressor] 12.5 mg PO BID 02/18/23 [History] Acetaminophen Tab [Tylenol] 325 mg PO Q6H PRN 09/01/23 [History] Albuterol Sulfate [Albuterol Sulfate Hfa] 2 puff PO RT-Q6H PRN 09/01/23 [History] Atorvastatin [Lipitor] 20 mg PO HS 09/01/23 [History] Naloxone HCl [Narcan] 4 mg NASAL DIRECTED PRN 09/01/23 [History] Rizatriptan Odt [[employer] CIVIL ENGINEERING DESIGNER] 10 mg PO BID PRN 09/01/23 [History] Topiramate [Topamax] 1 dose PO DIRECTED 09/01/23 [History] Tanzadine(Unk) 4 mg PO DAILY PRN 01/11/24 [History] Follow up Appointment(s)/Referral(s): Arti Conti MD [STAFF PHYSICIAN] - 02/08/24 3:45 pm Patient Instructions/Handouts: Microscopic Colitis (GEN), Hiatal Hernia (DC) Activity/Diet/Wound Care/Special Instructions: Repeat colonoscopy in 4 years, 2027, age 47 Discharge Disposition: HOME SELF-CARE
[2024-01-13 12:19] VITALS: BP 132/76
== END 2024-01-13 12:10 | disposition home or self-care (01) ==
LOC: ORWHC2ENDO 09:55
PROVIDERS: ATTEND Surgery Plastic and Reconstructive Surgery
DX: K29.50 Unspecified chronic gastritis without bleeding (principal); K31.9 Disease of stomach and duodenum, unspecified; K21.00 Gastro-esophageal reflux disease with esophagitis, without bleeding; K62.89 Other specified diseases of anus and rectum; K52.9 Noninfective gastroenteritis and colitis, unspecified; K44.9 Diaphragmatic hernia without obstruction or gangrene; I25.10 Atherosclerotic heart disease of native coronary artery without angina pectoris; E78.5 Hyperlipidemia, unspecified; Z86.718 Personal history of other venous thrombosis and embolism; Z87.891 Personal history of nicotine dependence; Z88.6 Allergy status to analgesic agent; Z90.49 Acquired absence of other specified parts of digestive tract; Z91.030 Bee allergy status; Z79.899 Other long term (current) drug therapy
CPT/HCPCS: 88305; 45380; 43239; J3010; J2704; J2001

== ENCOUNTER 2024-01-17 20:57 | Emergency (ER) | payer OTHER, MEDICARE ==
[2024-01-17 21:36] VITALS: RESP 18; TEMP 98.3
--- NOTE | 2024-01-17 22:32 | XR ---
EXAMINATION TYPE: XR KUB DATE OF EXAM: 01/17/2024 9:58 PM CLINICAL INDICATION:Male, 43 years old with history of abdominal pain; [facility] COMPARISON: None. TECHNIQUE: One radiographic view of the abdomen was obtained. FINDINGS: The bowel gas pattern is nonspecific without dilated loops of small or large bowel. There i s no evidence for organomegaly or pneumoperitoneum. The osseous structures are intact. No abnormal calcifications are present. Fecal material and gas are demonstrated throughout the colon and rectum. Fixation hardware in the spine appears intact. Right upper quadrant cholecystectomy changes. IMPRESSION: Nonspecific bowel gas pattern without radiographic evidence for acute process.
--- NOTE | 2024-01-17 22:47 | ED ---
Abdominal Pain HPI - General Chief Complaint: Abdominal Pain Stated Complaint: Abd Pain Time Seen by Provider: 01/17/24 21:45 Source: patient Mode of arrival: ambulatory Limitations: no limitations - History of Present Illness MD Complaint: abdominal pain -: days(s) Location: LUQ, LLQ Radiation: none Migration to: no migration Severity: moderate Quality: dull Consistency: constant Improves With: nothing Worsens With: nothing - Related Data Home Medications Medication Instructions Recorded Confirmed PARoxetine HCL [Paxil] 60 mg PO DAILY 08/22/19 01/13/24 traZODone HCL 300 mg PO HS PRN 10/09/20 01/13/24 EPINEPHrine (Auto Inject) [Epipen] 0.3 mg IM ONCE PRN 10/16/22 01/13/24 HYDROcodone/APAP 10-325MG [[place] 1 tab PO Q6H 02/18/23 01/13/24 10-325] Metoprolol Tartrate [Lopressor] 12.5 mg PO BID 02/18/23 01/13/24 Acetaminophen Tab [Tylenol] 325 mg PO Q6H PRN 09/01/23 01/13/24 Albuterol Sulfate [Albuterol 2 puff PO RT-Q6H PRN 09/01/23 01/13/24 Sulfate Hfa] Atorvastatin [Lipitor] 20 mg PO HS 09/01/23 01/13/24 Naloxone HCl [Narcan] 4 mg NASAL DIRECTED PRN 09/01/23 01/13/24 Rizatriptan Odt [Maxalt [employer] LANGUAGE [employer]ER] 10 mg PO BID PRN 09/01/23 01/13/24 Topiramate [Topamax] 1 dose PO DIRECTED 09/01/23 01/13/24 Tanzadine(Unk) 4 mg PO DAILY PRN 01/11/24 01/13/24 Previous Rx's Medication Instructions Recorded Isosorbide Mononitrate ER [Imdur] 30 mg PO DAILY #30 tab 06/08/22 Allergies Allergy/AdvReac Type Severity Reaction Status Date / Time ketorolac tromethamine Allergy Rash/Hives/Swelling Verified 01/17/24 21:07 [From Toradol] at injection site venom-honey bee Allergy Anaphylaxis Verified 01/17/24 21:07 [bee venom (honey bee)] droperidol AdvReac Nausea & Verified 01/17/24 21:07 Vomiting & Diarrhea naproxen AdvReac Nausea & Verified 01/17/24 21:07 Vomiting & Diarrhea Review of Systems ROS Statement: Those systems with pertinent positive or pertinent negative responses have been documented in the HPI. ROS Other: All systems not noted in ROS Statement are negative. Constitutional: Denies: fever, chills, weakness Respiratory: Denies: cough, dyspnea Cardiovascular: Denies: chest pain, palpitations, edema Gastrointestinal: Reports: abdominal pain. Denies: vomiting, diarrhea, melena, hematochezia Genitourinary: Denies: dysuria, hematuria Musculoskeletal: Denies: back pain Skin: Denies: rash Neurological: Denies: headache, weakness, numbness Past Medical History Past Medical History: Coronary Artery Disease (CAD), Deep Vein Thrombosis (DVT), GERD/Reflux, Hyperlipidemia Additional Past Medical History / Comment(s): chronic knee pain, back pain, RBBB, elevated heart rate.hiatal hernia History of Any Multi-Drug Resistant Organisms: MRSA Date of last positivie culture/infection: 2008 MDRO Source:: thumb Past Surgical History: Appendectomy, Back Surgery, Bowel Resection, Cholecystectomy, Heart Catheterization, Orthopedic Surgery Additional Past Surgical History / Comment(s): l4-5 fusion march 2020,l4-s1 fusion in 12/2021, carpel tunnnel release, vascectomy, skin graft rt knee surg x4,lft knee surgery right hip surgery. lower bowel surgery, cholecystectomy 10/2022 Past Anesthesia/Blood Transfusion Reactions: No Reported Reaction Past Psychological History: Anxiety, Depression, PTSD Smoking Status: Former smoker Past Alcohol Use History: None Reported Past Drug Use History: None Reported - Past Family History Father Family Medical History: No Reported History Additional Family Medical History / Comment(s): Father is alive at age 61 was no major medical problems. Mother Family Medical History: No Reported History Additional Family Medical History / Comment(s): Mother is alive at age 56 with history of spinal surgeries and neurological disorders. one sister with no major medical problems. Patient has 1 son and 1 daughter with no major medical problems. General Exam Limitations: no limitations General appearance: alert, in no apparent distress Head exam: Present: atraumatic, normocephalic Eye exam: Present: normal appearance. Absent: scleral icterus, conjunctival i njection ENT exam: Present: mucous membranes dry Neck exam: Present: normal inspection, full ROM Respiratory exam: Present: normal lung sounds bilaterally. Absent: respiratory distress, wheezes, rales, rhonchi, stridor Cardiovascular Exam: Present: regular rate, normal rhythm, normal heart sounds. Absent: systolic murmur, diastolic murmur, rubs, gallop GI/Abdominal exam: Present: soft, tenderness. Absent: distended, guarding, rebound, rigid, mass, pulsatile mass, hernia Extremities exam: Present: normal inspection, normal capillary refill. Absent: pedal edema, calf tenderness Back exam: Present: normal inspection. Absent: CVA tenderness (R), CVA tenderness (L) Neurological exam: Present: alert Skin exam: Present: warm, dry, intact, normal color. Absent: rash Course Vital Signs 01/17/24 01/17/24 01/18/24 21:05 23:11 02:30 Temperature 98.3 F 98.3 F Pulse Rate 79 69 68 Respiratory 18 18 18 Rate Blood Pressure 123/77 111/85 120/75 O2 Sat by Pulse 96 96 96 Oximetry Medical Decision Making - Medical Decision Making The patient had KUB film of the abdomen which I interpreted as negative for free air or obstruction. The patient had CT scan of the abdomen pelvis which I interpreted as negative for free air, obstruction, or other acute surgical condition Was pt. sent in by a medical professional or institution (COLTON Muhammad, SPEECH PATHOLOGY SUPERVISOR, urgent care, hospital, or skilled nursing...) When possible be specific @ -[No] Did you speak to anyone other than the patient for history (EMS, parent, family, police, friend...)? What history was obtained from this source @ -[No] Did you review nursing and triage notes (agree or disagree)? Why? @ -[I reviewed and agree with nursing and triage notes] Were old charts reviewed (outside hosp., previous admission, EMS record, old EKG, old radiological studies, urgent care reports/EKG's, skilled nursing records)? Report findings @ -[No old charts were reviewed] Differential Diagnosis (chest pain, altered mental status, abdominal pain women, abdominal pain men, vaginal bleeding, weakness, fever, dyspnea, syncope, headache, dizziness, GI bleed, back pain, seizure, CVA, palpatations, mental health, musculoskeletal)? @ -[Differential Abdominal Pain Men: Appendicitis, cholecystitis, diverticulosis, ischemic bowel, pancreatitis, hepatitis, UTI, gastroenteritis, AAA, incarcerated hernia, bowel obstruction, constipation, inflammatory bowel, hepatitis, peptic ulcer disease, splenic infarction, perforated viscus, testicular torsion, this is not meant to be an all-inclusive list EKG interpreted by me (3pts min.). @ -[ X-rays interpreted by me (1pt min.). @ -[I interpreted as above CT interpreted by me (1pt min.). @ -[I interpreted as above U/S interpreted by me (1pt. min.). @ -[None done] What testing was considered but not performed or refused? (CT, X-rays, U/S, labs)? Why? @ -[None] What meds were considered but not given or refused? Why? @ -[None] Did you discuss the management of the patient with other professionals (professionals i.e. , PA, SPEECH PATHOLOGY SUPERVISOR, lab, RT, psych nurse, social work job titles, admiralty lawyer, teacher, booking officer, family service caseworker)? Give summary @ -[No] Was smoking cessation discussed for >3mins.? @ -[No] Was critical care preformed (if so, how long)? @ -[No] Were there social determinants of health that impacted care today? How? (Homelessness, low income, unemployed, alcoholism, drug addiction, transportation, low edu. Level, literacy, decrease access to med. care, skilled nursing, rehab)? @ -[No] Was there de-escalation of care discussed even if they declined (Discuss DNR or withdrawal of care, Hospice)? DNR status @ -[No] What co-morbidities impacted this encounter? (DM, HTN, Smoking, COPD, CAD, Cancer, CVA, ARF, Chemo, Hep., AIDS, mental health diagnosis, sleep apnea, morbid obesity)? @ -[None] Was patient admitted / discharged? Hospital course, mention meds given and route, prescriptions, significant lab abnormalities, going to OR and other pertinent info. @ -[Patient is 43-year-old man who presents to have evaluation of abdominal pain. There was some tenderness on the exam and therefore CT scan is obtained which I interpreted as negative for an acute surgical condition. The patient was feeling better on reevaluation and did want to go home. We discussed appropriate follow-up as well as return parameters related to abdominal pain Undiagnosed new problem with uncertain prognosis? @ -[No] Drug Therapy requiring intensive monitoring for toxicity (Heparin, Nitro, Insulin, Cardizem)? @ -[No] Were any procedures done? @ -[No] Diagnosis/symptom? @ -[Acute abdominal pain Acute, or Chronic, or Acute on Chronic? @ -[Acute Uncomplicated (without systemic symptoms) or Complicated (systemic symptoms)? @ -[Uncomplicated Side effects of treatment? @ -[No] Exacerbation, Progression, or Severe Exacerbation? @ -[No] Poses a threat to life or bodily function? How? (Chest pain, [place], [place], pneumonia, PE, COPD, DKA, ARF, appy, cholecystitis, CVA, Diverticulitis, Homicidal, Suicidal, threat to staff... and all critical care pts) @ -[No] - Lab Data Result diagrams: 01/17/24 23:04 01/17/24 23:04 Lab Results 01/17/24 01/17/24 01/17/24 Range/Units 23:02 23:04 23:04 WBC 7.5 (3.8-10.6) k/uL RBC 4.68 (4.30-5.90) m/uL Hgb 14.0 (13.0-17.5) gm/dL Hct 41.5 (39.0-53.0) % MCV 88.8 (80.0-100.0) fL MCH 29.9 (25.0-35.0) pg MCHC 33.7 (31.0-37.0) g/dL RDW 12.5 (11.5-15.5) % Plt Count 234 (150-450) k/uL MPV 7.7 Neutrophils % 39 % Lymphocytes % 50 % Monocytes % 5 % Eosinophils % 3 % Basophils % 1 % Neutrophils # 2.9 (1.3-7.7) k/uL Lymphocytes # 3.7 (1.0-4.8) k/uL Monocytes # 0.4 (0-1.0) k/uL Eosinophils # 0.2 (0-0.7) k/uL Basophils # 0.1 (0-0.2) k/uL Sodium 142 (137-145) mmol/L Potassium 3.7 (3.5-5.1) mmol/L Chloride 110 H (98-107) mmol/L Carbon Dioxide 21 L (22-30) mmol/L Anion Gap 11 mmol/L BUN 12 (9-20) mg/dL Creatinine 0.82 (0.66-1.25) mg/dL Est GFR (CKD-EPI)AfAm >90 (>60 ml/min/1.73 sqM) Est GFR (CKD-EPI)NonAf >90 (>60 ml/min/1.73 sqM) Glucose 90 (74-99) mg/dL Plasma Lactic Acid [place] (0.7-2.0) mmol/L Calcium 9.4 (8.4-10.2) mg/dL Total Bilirubin 0.6 (0.2-1.3) mg/dL AST 33 (17-59) U/L ALT 47 (4-49) U/L Alkaline Phosphatase 74 (38-126) U/L C-Reactive Protein <0.5 (<1.0) mg/dL Total Protein 7.1 (6.3-8.2) g/dL Albumin 4.4 (3.5-5.0) g/dL Amylase 57 (30-110) U/L Lipase 126 (23-300) U/L Urine Color Yellow Urine Appearance Clear (Clear) Urine pH 6.0 (5.0-8.0) Ur Specific [place] 1.026 (1.001-1.035) Urine Protein Trace H (Negative) Urine Glucose (UA) Negative (Negative) Urine Ketones Negative (Negative) Urine Blood Negative (Negative) Urine Nitrite Negative (Negative) Urine Bilirubin Negative (Negative) Urine Urobilinogen 2.0 (<2.0) mg/dL Ur Leukocyte Esterase Negative (Negative) 01/17/24 Range/Units 23:04 WBC (3.8-10.6) k/uL RBC (4.30-5.90) m/uL Hgb (13.0-17.5) gm/dL Hct (39.0-53.0) % MCV (80.0-100.0) fL MCH (25.0-35.0) pg MCHC (31.0-37.0) g/dL RDW (11.5-15.5) % Plt Count (150-450) k/uL MPV Neutrophils % % Lymphocytes % % Monocytes % % Eosinophils % % Basophils % % Neutrophils # (1.3-7.7) k/uL Lymphocytes # (1.0-4.8) k/uL Monocytes # (0-1.0) k/uL Eosinophils # (0-0.7) k/uL Basophils # (0-0.2) k/uL Sodium (137-145) mmol/L Potassium (3.5-5.1) mmol/L Chloride (98-107) mmol/L Carbon Dioxide (22-30) mmol/L Anion Gap mmol/L BUN (9-20) mg/dL Creatinine (0.66-1.25) mg/dL Est GFR (CKD-EPI)AfAm (>60 ml/min/1.73 sqM) Est GFR (CKD-EPI)NonAf (>60 ml/min/1.73 sqM) Glucose (74-99) mg/dL Plasma Lactic Acid [place] 0.9 (0.7-2.0) mmol/L Calcium (8.4-10.2) mg/dL Total Bilirubin (0.2-1.3) mg/dL AST (17-59) U/L ALT (4-49) U/L Alkaline Phosphatase (38-126) U/L C-Reactive Protein (<1.0) mg/dL Total Protein (6.3-8.2) g/dL Albumin (3.5-5.0) g/dL Amylase (30-110) U/L Lipase (23-300) U/L Urine Color Urine Appearance (Clear) Urine pH (5.0-8.0) Ur Specific [place] (1.001-1.035) Urine Protein (Negative) Urine Glucose (UA) (Negative) Urine Ketones (Negative) Urine Blood (Negative) Urine Nitrite (Negative) Urine Bilirubin (Negative) Urine Urobilinogen (<2.0) mg/dL Ur Leukocyte Esterase (Negative) Disposition Clinical Impression: Abdominal pain Disposition: HOME SELF-CARE Condition: Good Instructions (If sedation given, give patient instructions): Abdominal Pain (ED) Is patient prescribed a controlled substance at d/c from ED?: No Referrals: Christian Rain MD [Primary Care Provider] - 1-2 days
[2024-01-17] MEDS: MORPHINE SULFATE 4 MG/ML SYRINGE IV STA (23:10)
[2024-01-17] MEDS: SODIUM CHLORIDE 0.9% 1,000 ML IV ONE (23:10)
[2024-01-17 23:11] LABS: Basophils # (A) 0.1 k/uL (0-0.2); Basophils % (A) 1 %; Eosinophils # (A) 0.2 k/uL (0-0.7); Eosinophils % (A) 3 %; HCT 41.5 % (39.0-53.0); Lymphocytes # (A) 3.7 k/uL (1.0-4.8); Lymphocytes % (A) 50 %; MCH 29.9 pg (25.0-35.0); MCHC 33.7 g/dL (31.0-37.0); MCV 88.8 fL (80.0-100.0); Mean Platelet Volume 7.7; Monocytes # (A) 0.4 k/uL (0-1.0); Monocytes % (A) 5 %; Neutrophils # (A) 2.9 k/uL (1.3-7.7); Neutrophils % (A) 39 %; Platelet Count 234 k/uL (150-450); RBC 4.68 m/uL (4.30-5.90); RDW 12.5 % (11.5-15.5); WBC 7.5 k/uL (3.8-10.6)
[2024-01-17 23:13] LABS: Appearance,Urine Clear (Clear); Bilirubin,Urine Negative (Negative); Blood,Urine Negative (Negative); Color,Urine Yellow; Glucose,Urine (UA) Negative (Negative); Ketones,Urine Negative (Negative); Leukocyte Esterase,Urine Negative (Negative); Nitrite,Urine Negative (Negative); Protein,Urine Trace (Negative); Specific Gravity,Urine 1.026 (1.001-1.035)
[2024-01-17 23:24] LABS: ALT 47 U/L (4-49); AST 33 U/L (17-59); African American GFR (CKD) >90 (>60 ml/min/1.73 sqM); Albumin 4.4 g/dL (3.5-5.0); Alkaline Phosphatase 74 U/L (38-126); Amylase 57 U/L (30-110); Anion Gap 11 mmol/L; Blood Urea Nitrogen 12 mg/dL (9-20); C Reactive Protein <0.5 mg/dL (<1.0); Calcium 9.4 mg/dL (8.4-10.2); Carbon Dioxide 21 mmol/L (22-30); Chloride 110 mmol/L (98-107); Glucose 90 mg/dL (74-99); Lipase 126 U/L (23-300); Non-African American GFR(CKD) >90 (>60 ml/min/1.73 sqM); Potassium 3.7 mmol/L (3.5-5.1); Sodium 142 mmol/L (137-145); Total Bilirubin 0.6 mg/dL (0.2-1.3); Total Protein 7.1 g/dL (6.3-8.2)
--- NOTE | 2024-01-18 01:54 | CT ---
EXAM: CT Abdomen and Pelvis With Intravenous Contrast CLINICAL HISTORY: ITS.REASON CT Reason: L abdominal tenderness TECHNIQUE: Axial computed tomography images of the abdomen and pelvis with intravenous contrast. CTDI is 30 mGy and DLP is 1408.1 mGy-cm. This CT exam was performed using one or more of the following dose reduction techniques: automated exposure control, adjustment of the mA and/or kV according to patient size, and/or use of iterative reconstruction technique. COMPARISON: Abdomen pelvis 08/12/2023. FINDINGS: Lung bases: Unremarkable. No mass. No consolidation. ABDOMEN: Liver: Hepatic steatosis. Gallbladder and bile ducts: Cholecystectomy. No ductal dilation. Pancreas: Unremarkable. No mass. No ductal dilation. Spleen: Unremarkable. No splenomegaly. Adrenals: Unremarkable. No mass. Kidneys and ureters: Unremarkable. No hydronephrosis or delayed nephrogram. Stomach and bowel: Diverticulosis, without acute diverticulitis. No bowel obstruction. No free air. PELVIS: Appendix: Appendectomy. Bladder: Decompressed urinary bladder. Reproductive: Unremarkable as visualized. ABDOMEN and PELVIS: Intraperitoneal space: See above. Bones/joints: Posterior fusion at L4-S1. No acute fracture. No dislocation. Soft tissues: Unremarkable. Vasculature: Unremarkable. No abdominal aortic aneurysm. Lymph nodes: Unremarkable. No enlarged lymph nodes. IMPRESSION: No acute findings in the abdomen or pelvis.
[2024-01-18] MEDS: DICYCLOMINE 10 MG/ML 2 ML AMP IM STA (02:24)
[2024-01-18 05:32] VITALS: BP 120/75; PULSE 68
== END 2024-01-18 07:00 | disposition home or self-care (01) ==
LOC: EC 20:57
DX: R10.12 Left upper quadrant pain (principal); R10.32 Left lower quadrant pain; Z87.891 Personal history of nicotine dependence; Z91.030 Bee allergy status; Z88.6 Allergy status to analgesic agent; Z88.8 Allergy status to other drugs, medicaments and biological substances
CPT/HCPCS: 99285; 96374; 96361; 96372; 36415; 80053; 82150; 83605; 83690; 85025; 86140; 81003; 74018; 74177; J2270; J0500; Q9967

== ENCOUNTER 2024-02-04 07:21 | Day surgery (SDC) | payer MEDICARE, OTHER ==
[2024-02-01 12:06] VITALS: BMI 29.9
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
[~2024-02-04 07:21] MED LIST changes: +HEPARIN SODIUM,PORCINE 5,000 UNIT/ML 1 ML VIAL SQ STA; -LIDOCAINE 1% (10MG/ML) FOR IV START INTRADERMA PRN; +MELOXICAM 7.5 MG TAB PO PRN; +Pre Op ABX Message 1 EACH MISC MISCELLANE ONE
[2024-02-04] MEDS ORDERED: LIDOCAINE 1% (10MG/ML) FOR IV START INTRADERMA PRN (07:38)
[2024-02-04] MEDS ORDERED: HYDROmorphone 0.5 MG/0.5 ML SYRINGE IVP PRN (07:38)
[2024-02-04] MEDS: LACTATED RINGERS 1,000 ML IV SCH (08:00)
[2024-02-04] MEDS: ONDANSETRON 4 MG/2 ML VIAL IVP PRN (08:14)
[2024-02-04] MEDS: DEXAMETHASONE SOD PHOSPHATE 4 MG/ML 1 ML VIAL IVP ONE (08:15)
[2024-02-04] MEDS: fentaNYL (PF) 50 MCG/1 ML VIAL IVP ONE ×2 (08:15)
[2024-02-04] MEDS: ACETAMINOPHEN TAB 500 MG TAB PO PRN (08:15)
[2024-02-04] MEDS: MIDAZOLAM 2 MG/2 ML VIAL IVP ONE (08:37)
[2024-02-04] MEDS: HEPARIN SODIUM,PORCINE 5,000 UNIT/ML 1 ML VIAL SQ PRN (08:50)
[2024-02-04] MEDS ORDERED: fentaNYL (PF) 50 MCG/ML 2 ML AMP ONE (09:07)
[2024-02-04] MEDS ORDERED: LIDOCAINE 1% INJ 10MG/ML (20 ML MDV) ONE (09:07)
[2024-02-04] MEDS ORDERED: SODIUM CHLORIDE 0.9% (PF) 10 ML VIAL ONE (09:07)
[2024-02-04] MEDS ORDERED: NEOSTIGMINE 1 MG/ML 10 ML VIAL ONE (09:07)
[2024-02-04] MEDS ORDERED: ROPIVACAINE 5 MG/ML 30 ML VIAL ONE (09:07)
[2024-02-04] MEDS ORDERED: GLYCOPYRROLATE 0.2 MG/ML 2 ML VIAL ONE (09:07)
[2024-02-04] MEDS ORDERED: HYDROmorphone (PF) 1 MG/ML ONE (09:07)
[2024-02-04] MEDS ORDERED: PROPOFOL 10 MG/ML 20 ML VIAL IV ONE (09:07)
[2024-02-04] MEDS ORDERED: SUCCINYLCHOLINE CHLORIDE 200 MG/10 ML VIAL IV ONE (09:07)
[2024-02-04] MEDS ORDERED: ROCURONIUM 10 MG/ML (5 ML VIAL) IV ONE (09:07)
[2024-02-04] MEDS ORDERED: PHENYLEPHRINE 10 MG/ML VIAL ONE (09:07)
[2024-02-04] MEDS: SODIUM CHLORIDE 0.9% 50 ML with ceFAZolin 2,000 MG IV ONE (09:12)
[2024-02-04] MEDS: LIDOCAINE 1%-EPI 1:100,000 20 ML VIAL SQ ONE ×2 (09:39→09:46)
[2024-02-04 12:13] VITALS: TEMP 98.1
[2024-02-04 12:20] LABS: Glucose,Whole Blood 162 mg/dL (70-110)
--- NOTE | 2024-02-04 12:41 | P.OP ---
Date of Procedure: 02/04/24 Description of Procedure: SURGEON: ARTI CONTI MD PREOPERATIVE DIAGNOSES: 1. Severe generalized abdominal pain 2. History of multiple abdominal surgeries 3. Chronic pain syndrome 4. Depressive disorder 5. Hypertensive heart disease 6. Hyperlipidemia 7. Asthma 8. Coronary artery disease 9. Gastroesophageal reflux disease 10. MRSA history 11. History of deep venous thrombosis POSTOPERATIVE DIAGNOSES: 1. Severe generalized abdominal pain due to intra-abdominal adhesions 2. History of multiple abdominal surgeries 3. Chronic pain syndrome 4. Depressive disorder 5. Hypertensive heart disease 6. Hyperlipidemia 7. Asthma 8. Coronary artery disease 9. Gastroesophageal reflux disease 10. MRSA history 11. History of deep venous thrombosis 12. Incisional hernia 13. Right inguinal hernia 14. Intermittent sigmoid volvulus 15. Severe interloop adhesions OPERATION: 1. Robotic-assisted da Linda Xi laparoscopic with extensive lysis of adhesions over 1.5 hours ESTIMATED BLOOD LOSS: 20 mL. SPECIMENS REMOVED: None. COMPLICATIONS: None. OPERATIVE FINDINGS: 1. Severe intra-abdominal adhesions, omentum to abdominal wall with lysis of adhesions performed 2. Severe interloop adhesions involving entire small bowel with lysis of adhesions performed 3. Small right inguinal hernia, indirect less than 1 cm 4. Left pelvic adhesion with highly redundant sigmoid colon intermittent volvulus, adhesion lysed INDICATIONS: The patient is a 43-year-old male who presents with chronic severe abdominal pain and history of multiple abdominal surgeries and adhesions. Abdominal pain is intractable. He reports change in bowel habits 2. Surgical intervention with diagnostic laparoscopy, lysis of adhesions and possible left inguinal hernia repair were described. Informed consent was obtained. Robotic assisted laparoscopic approach was described. Benefits and risks of the procedure including but not limited to bleeding, infection was described. Informed consent was obtained. DESCRIPTION OF PROCEDURE: Patient was brought to the operating room, placed in supine position. After general induction, the abdomen had been prepped and draped in standard sterile fashion. The robotic da Linda XI system was primed. After a timeout protocol was performed, the patient had been prepped and draped in standard sterile fashion. The robot was docked along the left lateral abdomen. Please note prior to docking of the robot; however, a 5 mm 0 degrees laparoscopic trocar entry was performed along the left upper quadrant. Next, three 8 mm robotic ports were placed along the left lateral abdominal wall abdomen. Trochars were placed at least 10 to 15 cm away from the target anatomy. Instruments including graspers and scissors with cautery were interchanged by the warehouse assistant. I had sat at the console. Severe omentum to abdominal wall adhesions was found and lysed using vessel sealer. Left pelvic adhesions identified of the sigmoid colon which is highly redundant with intermittent sigmoid volvulus. Small less than 1 cm indirect right inguinal hernia was identified. Highly redundant cecum within the pelvis posterior to the bladder was identified. Previous appendectomy identified with staple line. Small bowel was investigated with severe interloop adhesions incorporating almost the entire small bowel presenting as "ball of yarn." Small bowel was also adherent to the mesentery. Extensive lysis of adhesions over 1.5 hours was performed for interloop adhesions involving the distal jejunum, proximal ileum and distal ileum. Despite extensive lysis of adhesions, residual interloop adhesions were identified without obstructive bowel gas pattern. No full-thickness enterotomies had occurred. Adhesional lysis performed using blunt dissection including vessel sealer. Hemostasis was checked. Adhesions involving the sigmoid colon creating a functional obstruction was also lysed. The robot was undocked. All pneumoperitoneum and instruments were evacuated from the abdominal cavity. The incisions were reapproximated using 4-0 Monocryl in an interrupted subcuticular fashion. Please note along the trocar sites, local anesthetic was placed as a field block prior to insertion of all instruments. Exofin was applied to the skin. At the end of the procedure needle, sponge, and instrument count had been verified correct by the registered nurse surgical services. The patient was transferred to postanesthesia care unit in stable condition. Findings were discussed with the patient's family where future lysed adhesions may be of benefit due to severity of intra-abdominal adhesions Plan - Discharge Summary Discharge Rx Participant: No New Discharge Prescriptions: New Acetaminophen Tab [Tylenol Tab] 1,000 mg PO Q6HR PRN #30 tablet PRN Reason: Pain Simethicone [Gas-X] 125 mg PO AC-TID PRN #20 capsule PRN Reason: Pain Continue PARoxetine HCL [Paxil] 60 mg PO QAM traZODone HCL 300 mg PO HS PRN PRN Reason: Insomnia HYDROcodone/APAP 10-325MG [[place] 10-325] 1 tab PO Q6H Metoprolol Tartrate [Lopressor] 25 mg PO QAM Albuterol Sulfate [Albuterol Sulfate Hfa] 2 puff PO RT-Q6H PRN PRN Reason: Shortness Of Breath Topiramate [Topamax] 100 mg PO BID tiZANidine HCL [Zanaflex] 4 mg PO HS EPINEPHrine (Auto Inject) [Epipen] 0.3 mg IM ONCE PRN PRN Reason: Anaphylaxis Naloxone HCl [Narcan] 4 mg NASAL DIRECTED PRN PRN Reason: Overdose Atorvastatin [Lipitor] 20 mg PO HS Acetaminophen Tab [Tylenol] 325 mg PO Q6H PRN PRN Reason: Fever And/ Or Pain Isosorbide Mononitrate ER [Imdur] 30 mg PO QAM Rimegepant Sulfate [Nurtec Odt] 75 mg PO DAILY PRN PRN Reason: migraines Discharge Medication List PARoxetine HCL [Paxil] 60 mg PO QAM 08/22/19 [History] traZODone HCL 300 mg PO HS PRN 10/09/20 [History] EPINEPHrine (Auto Inject) [Epipen] 0.3 mg IM ONCE PRN 10/16/22 [History] HYDROcodone/APAP 10-325MG [[place] 10-325] 1 tab PO Q6H 02/18/23 [History] Metoprolol Tartrate [Lopressor] 25 mg PO QAM 02/18/23 [History] Acetaminophen Tab [Tylenol] 325 mg PO Q6H PRN 09/01/23 [History] Albuterol Sulfate [Albuterol Sulfate Hfa] 2 puff PO RT-Q6H PRN 09/01/23 [History] Atorvastatin [Lipitor] 20 mg PO HS 09/01/23 [History] Naloxone HCl [Narcan] 4 mg NASAL DIRECTED PRN 09/01/23 [History] Topiramate [Topamax] 100 mg PO BID 09/01/23 [History] Isosorbide Mononitrate ER [Imdur] 30 mg PO QAM 02/01/24 [History] Rimegepant Sulfate [Nurtec Odt] 75 mg PO DAILY PRN 02/01/24 [History] tiZANidine HCL [Zanaflex] 4 mg PO HS 02/01/24 [History] Acetaminophen Tab [Tylenol Tab] 1,000 mg PO Q6HR PRN #30 tablet 02/04/24 [Rx] Simethicone [Gas-X] 125 mg PO AC-TID PRN #20 capsule 02/04/24 [Rx] Follow up Appointment(s)/Referral(s): Arti Conti MD [STAFF PHYSICIAN] - 02/08/24 5:00 pm (TELEHEALTH - DR WILL CALL YOU BETWEEN 9 am to 8 pm) Patient Instructions/Handouts: Lysis of Abdominal Adhesions (DC), Low Fiber Diet (GEN) Activity/Diet/Wound Care/Special Instructions: TELEHEALTH - DR WILL CALL YOU BETWEEN 9 am to 8 pm Recommend low fiber diet for the next 2 days. No lifting over 10 pounds in 2 weeks until February 17March shower. No bath tub soaks for two weeks until February 17 Diet as tolerated. Use Tylenol, simethicone and ibuprofen or Aleve scheduled for the next 24-48 hours for Discharge Disposition: HOME SELF-CARE
--- NOTE | 2024-02-04 14:46 | P.ANPRN ---
Procedure Note - Anesthesia - Nerve Block Performed Bilateral Erector Spinae Single Time Out Performed: Yes (0836) Date of Procedure: 02/04/24 Procedure Start Time: 08:37 Procedure Stop Time: 08:41 Location of Patient: PreOp Indication: Acute Post-Operative Pain, Requested by Surgeon Specifically requested for management of pain by : Arti Conti Sedation Type: Sedate with meaningful contact maintained Preparation: Sterile Prep Position: Prone Catheter: None Needle Types: Pajunk Needle Gauge: 21 Ultrasound used to visualize needle placement: Yes Ultrasound used to observe medication spread: Yes Injectate: 0.5% Ropivacaine (see comment for volume) (15cc +10cc nacl pf each side) Blood Aspirated: No Pain Paresthesia on Injection Noted: No Resistance on Injection: Normal Image Stored and Saved: Yes Events: Uneventful and Well Tolerated
[2024-02-04 16:12] VITALS: BP 124/79; PULSE 87; RESP 18
== END 2024-02-04 16:49 | disposition home or self-care (01) ==
LOC: OR 07:21
PROVIDERS: ATTEND Surgery Plastic and Reconstructive Surgery
DX: K66.0 Peritoneal adhesions (postprocedural) (postinfection) (principal); K43.2 Incisional hernia without obstruction or gangrene; K40.90 Unilateral inguinal hernia, without obstruction or gangrene, not specified as recurrent; E78.5 Hyperlipidemia, unspecified; F32.A Depression, unspecified; G89.4 Chronic pain syndrome; I11.9 Hypertensive heart disease without heart failure; I25.10 Atherosclerotic heart disease of native coronary artery without angina pectoris; J45.909 Unspecified asthma, uncomplicated; K21.9 Gastro-esophageal reflux disease without esophagitis; K56.2 Volvulus; Z86.14 Personal history of Methicillin resistant Staphylococcus aureus infection; Z86.718 Personal history of other venous thrombosis and embolism; Z87.891 Personal history of nicotine dependence; Z88.6 Allergy status to analgesic agent; Z90.49 Acquired absence of other specified parts of digestive tract; Z91.030 Bee allergy status
CPT/HCPCS: 64999; 44180; J2250; J0330; J1644; J1100; J2710; J2405; J0690; J2001; J3010 ×2; J1170; J2795; J2704; J2371

== ENCOUNTER → 2024-05-19 | Day surgery (SDC) | payer OTHER ==
[2024-05-17 11:42] VITALS: BMI 30.9
[~2024-05-19] MED LIST changes: +DEXAMETHASONE SOD PHOSPHATE 4 MG/ML 1 ML VIAL ONE; +GLYCOPYRROLATE 0.2 MG/ML 2 ML VIAL ONE; -HEPARIN SODIUM,PORCINE 5,000 UNIT/ML 1 ML VIAL SQ STA; +HYDROmorphone (PF) 1 MG/ML ONE; +HYDROmorphone 0.5 MG/0.5 ML SYRINGE IVP PRN; +LIDOCAINE 1% (10MG/ML) FOR IV START INTRADERMA PRN; +LIDOCAINE 1% INJ 10MG/ML (20 ML MDV) ONE; -MELOXICAM 7.5 MG TAB PO PRN; +NEOSTIGMINE 1 MG/ML 10 ML VIAL ONE; +ONDANSETRON 4 MG/2 ML VIAL IVP PRN; +PROPOFOL 10 MG/ML 20 ML VIAL IV ONE; +ROCURONIUM 10 MG/ML (5 ML VIAL) IV ONE; +ROPIVACAINE 5 MG/ML 30 ML VIAL ONE; +SODIUM CHLORIDE 0.9% (PF) 10 ML VIAL ONE; +SUCCINYLCHOLINE CHLORIDE 200 MG/10 ML VIAL IV ONE; +fentaNYL (PF) 50 MCG/ML 2 ML AMP ONE
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
[2024-05-19] MEDS: LACTATED RINGERS 1,000 ML IV SCH (09:15)
[2024-05-19] MEDS: ONDANSETRON 4 MG/2 ML VIAL IVP ONE (09:16)
[2024-05-19] MEDS: DEXAMETHASONE SOD PHOSPHATE 4 MG/ML 1 ML VIAL IV ONE (09:16)
[2024-05-19] MEDS: MELOXICAM 7.5 MG TAB PO PRN (09:16)
[2024-05-19] MEDS: ACETAMINOPHEN TAB 500 MG TAB PO PRN (09:16)
[2024-05-19] MEDS: IV FLUID CONTINUATION 1,000 ML IV ONE ×2 (09:20→14:38)
[2024-05-19] MEDS: fentaNYL (PF) 50 MCG/ML 2 ML AMP IVP STA (09:32)
[2024-05-19] MEDS: MIDAZOLAM 2 MG/2 ML VIAL IV PRN (09:32)
[2024-05-19 09:44] LABS: Basophils % (A) 1 %; Eosinophils # (A) 0.2 k/uL (0-0.7); Eosinophils % (A) 3 %; HCT 40.9 % (39.0-53.0); HGB 13.9 gm/dL (13.0-17.5); Lymphocytes # (A) 2.4 k/uL (1.0-4.8); Lymphocytes % (A) 34 %; MCH 31.1 pg (25.0-35.0); MCV 91.5 fL (80.0-100.0); Mean Platelet Volume 8.1; Monocytes # (A) 0.5 k/uL (0-1.0); Monocytes % (A) 7 %; Neutrophils # (A) 3.8 k/uL (1.3-7.7); Neutrophils % (A) 54 %; Platelet Count 225 k/uL (150-450); RBC 4.47 m/uL (4.30-5.90); RDW 12.4 % (11.5-15.5); WBC 6.9 k/uL (3.8-10.6)
[2024-05-19] MEDS: HEPARIN SODIUM,PORCINE 5,000 UNIT/ML 1 ML VIAL SQ PRN (09:44)
--- NOTE | 2024-05-19 09:49 | P.ANPRN ---
Procedure Note - Anesthesia - Nerve Block Performed Bilateral Erector Spinae Single Time Out Performed: Yes Date of Procedure: 05/19/24 Procedure Start Time: :30 Procedure Stop Time: :39 Location of Patient: PreOp Indication: Acute Post-Operative Pain, Requested by Surgeon Sedation Type: Sedate with meaningful contact maintained Preparation: Sterile Prep Position: Prone Needle Types: Pajunk Needle Gauge: 21 Ultrasound used to visualize needle placement: Yes Ultrasound used to observe medication spread: Yes Injectate: 0.5% Ropivacaine (see comment for volume) (20 ml + 10 ml NS + 4 mg Dexamethasone per side) Blood Aspirated: No Pain Paresthesia on Injection Noted: No Resistance on Injection: Normal Image Stored and Saved: Yes Events: Uneventful and Well Tolerated
[2024-05-19] MEDS: SODIUM CHLORIDE 0.9% 100 ML with ceFAZolin 2,000 MG IV ONE (11:28)
[2024-05-19] MEDS: LIDOCAINE 1%-EPI 1:100,000 20 ML VIAL SQ ONE (11:36)
[2024-05-19] MEDS: LACTATED RINGERS 1,000 ML IV ONE (12:06)
--- NOTE | 2024-05-19 13:19 | P.OP ---
Date of Procedure: 05/19/24 Description of Procedure: SURGEON: ARTI CONTI MD PREOPERATIVE DIAGNOSES: 1. Severe generalized abdominal pain due to intra-abdominal adhesions 2. History of multiple abdominal surgeries 3. Chronic pain syndrome 4. Depressive disorder 5. Hypertensive heart disease 6. Hyperlipidemia 7. Asthma 8. Coronary artery disease 9. Gastroesophageal reflux disease 10. MRSA history 11. History of deep venous thrombosis POSTOPERATIVE DIAGNOSES: 1. Severe generalized abdominal pain due to intra-abdominal adhesions 2. History of multiple abdominal surgeries 3. Chronic pain syndrome 4. Depressive disorder 5. Hypertensive heart disease 6. Hyperlipidemia 7. Asthma 8. Coronary artery disease 9. Gastroesophageal reflux disease 10. MRSA history 11. History of deep venous thrombosis 12. Incisional hernia 13. Right inguinal hernia 14. Intermittent sigmoid volvulus 15. Severe interloop adhesions OPERATION: 1. Robotic-assisted da Linda Xi laparoscopic with extensive lysis of adhesions over 1.5 hours ESTIMATED BLOOD LOSS: 20 mL. SPECIMENS REMOVED: None. COMPLICATIONS: None. OPERATIVE FINDINGS: 1. Severe interloop adhesions involving entire small bowel with lysis of adhesions performed from terminal ileum to mid jejunum INDICATIONS: The patient is a 43-year-old male who presents with chronic severe abdominal pain and history of multiple abdominal surgeries and adhesions. Surgical intervention with diagnostic laparoscopy, lysis of adhesions and possible left inguinal hernia repair were described. Informed consent was obtained. Robotic assisted laparoscopic approach was described. Benefits and risks of the procedure including but not limited to bleeding, infection was described. Informed consent was obtained. DESCRIPTION OF PROCEDURE: Patient was brought to the operating room, placed in supine position. After general induction, the abdomen had been prepped and draped in standard sterile fashion. The robotic da Linda XI system was primed. After a timeout protocol was performed, the patient had been prepped and draped in standard sterile fashion. The robot was docked along the left lateral abdomen. Please note prior to docking of the robot; however, a 5 mm 0 degrees laparoscopic trocar entry was performed along the left upper quadrant. Next, three 8 mm robotic ports were placed along the upper abdominal wall abdomen. Trochars were placed at least 10 to 15 cm away from the target anatomy. Instruments including graspers and scissors with cautery were interchanged by the assistant engineer. I had sat at the console. No recurrent abdominal wall adhesions were identified. Small bowel was investigated with severe interloop adhesions incorporating almost the entire small bowel. Fecaliths within the small bowel were identified consistent with chronic bowel obstruction. Small bowel was also adherent to the mesentery. E xtensive lysis of adhesions over 1.5 hours was performed for interloop adhesions involving the terminal ileum to the jejunum. Despite extensive lysis of adhesions, residual interloop adhesions were identified without obstructive bowel gas pattern. No full-thickness enterotomies had occurred. Adhesional lysis performed using blunt dissection including vessel sealer. Hemostasis was checked. Adhesions involving the sigmoid colon creating a functional obstruction was also lysed. The robot was undocked. All pneumoperitoneum and instruments were evacuated from the abdominal cavity. The incisions were reapproximated using 4-0 Monocryl in an interrupted subcuticular fashion. Please note along the trocar sites, local anesthetic was placed as a field block prior to insertion of all instruments. Exofin was applied to the skin. At the end of the procedure needle, sponge, and instrument count had been verified correct by the certified bench jeweler technician. The patient was transferred to postanesthesia care unit in stable condition. Plan - Discharge Summary Discharge Rx Participant: Yes New Discharge Prescriptions: New Acetaminophen Tab [Tylenol Tab] 1,000 mg PO Q6HR PRN #30 tablet PRN Reason: Pain Simethicone [Gas-X] 125 mg PO AC-TID PRN #20 capsule PRN Reason: Pain Continue PARoxetine HCL [Paxil] 60 mg PO QAM traZODone HCL 300 mg PO HS PRN PRN Reason: Insomnia HYDROcodone/APAP 10-325MG [[place] 10-325] 1 tab PO Q6H Metoprolol Tartrate [Lopressor] 25 mg PO QAM Albuterol Sulfate [Albuterol Sulfate Hfa] 2 puff PO RT-Q6H PRN PRN Reason: Shortness Of Breath Topiramate [Topamax] 100 mg PO BID tiZANidine HCL [Zanaflex] 4 mg PO HS EPINEPHrine (Auto Inject) [Epipen] 0.3 mg IM ONCE PRN PRN Reason: Anaphylaxis Naloxone HCl [Narcan] 4 mg NASAL DIRECTED PRN PRN Reason: Overdose Atorvastatin [Lipitor] 20 mg PO HS Isosorbide Mononitrate ER [Imdur] 30 mg PO QAM Rimegepant Sulfate [Nurtec Odt] 75 mg PO DAILY PRN PRN Reason: migraines Discontinued Simethicone [Gas-X] 125 mg PO AC-TID PRN #20 capsule PRN Reason: Pain Discharge Medication List PARoxetine HCL [Paxil] 60 mg PO QAM 08/22/19 [History] traZODone HCL 300 mg PO HS PRN 10/09/20 [History] EPINEPHrine (Auto Inject) [Epipen] 0.3 mg IM ONCE PRN 10/16/22 [History] HYDROcodone/APAP 10-325MG [[place] 10-325] 1 tab PO Q6H 02/18/23 [History] Metoprolol Tartrate [Lopressor] 25 mg PO QAM 02/18/23 [History] Albuterol Sulfate [Albuterol Sulfate Hfa] 2 puff PO RT-Q6H PRN 09/01/23 [History] Atorvastatin [Lipitor] 20 mg PO HS 09/01/23 [History] Naloxone HCl [Narcan] 4 mg NASAL DIRECTED PRN 09/01/23 [History] Topiramate [Topamax] 100 mg PO BID 09/01/23 [History] Isosorbide Mononitrate ER [Imdur] 30 mg PO QAM 02/01/24 [History] Rimegepant Sulfate [Nurtec Odt] 75 mg PO DAILY PRN 02/01/24 [History] tiZANidine HCL [Zanaflex] 4 mg PO HS 02/01/24 [History] Acetaminophen Tab [Tylenol Tab] 1,000 mg PO Q6HR PRN #30 tablet 05/19/24 [Rx] Simethicone [Gas-X] 125 mg PO AC-TID PRN #20 capsule 05/19/24 [Rx] Follow up Appointment(s)/Referral(s): Arti Conti MD [STAFF PHYSICIAN] - 05/23/24 6:30 pm Patient Instructions/Handouts: Lysis of Abdominal Adhesions (DC) Activity/Diet/Wound Care/Special Instructions: TELEHEALTH - WILL CALL YOU BETWEEN 9 am to 8 pm No lifting over 10 pounds in 2 weeks until Jun 02March shower. No bath tub soaks for two weeks until Jun 02. Diet as tolerated. Use Tylenol, simethicone and ibuprofen or Aleve scheduled for the next 24-48 hours for best pain relief. Use ice along incisions for today to prevent swelling. Discharge Disposition: HOME SELF-CARE
[2024-05-19 13:29] VITALS: TEMP 97.1
[2024-05-19 13:55] VITALS: RESP 16
[2024-05-19 15:30] VITALS: BP 117/73; PULSE 84
== END | disposition home or self-care (01) ==
LOC: OR 08:48
PROVIDERS: ATTEND Surgery Plastic and Reconstructive Surgery
DX: G89.4 Chronic pain syndrome (principal); F32.A Depression, unspecified; I11.9 Hypertensive heart disease without heart failure; E78.5 Hyperlipidemia, unspecified; J45.909 Unspecified asthma, uncomplicated; I25.10 Atherosclerotic heart disease of native coronary artery without angina pectoris; K56.2 Volvulus; K21.9 Gastro-esophageal reflux disease without esophagitis; K43.2 Incisional hernia without obstruction or gangrene; K40.90 Unilateral inguinal hernia, without obstruction or gangrene, not specified as recurrent; F41.9 Anxiety disorder, unspecified; Z86.14 Personal history of Methicillin resistant Staphylococcus aureus infection; Z86.718 Personal history of other venous thrombosis and embolism; Z90.49 Acquired absence of other specified parts of digestive tract; Z87.891 Personal history of nicotine dependence; Z79.899 Other long term (current) drug therapy; Z79.02 Long term (current) use of antithrombotics/antiplatelets; Z79.891 Long term (current) use of opiate analgesic; Z91.030 Bee allergy status; Z88.6 Allergy status to analgesic agent; Z88.8 Allergy status to other drugs, medicaments and biological substances
CPT/HCPCS: 44180; S2900; 64999; 85025

== ENCOUNTER 2024-06-04 22:07 | Emergency (ER) | payer MEDICARE, OTHER ==
[2024-06-04 22:35] VITALS: TEMP 97.8
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
[2024-06-05 01:23] LABS: Basophils # (A) 0.1 k/uL (0-0.2); Basophils % (A) 1 %; Eosinophils # (A) 0.2 k/uL (0-0.7); Eosinophils % (A) 3 %; HCT 42.7 % (39.0-53.0); Lymphocytes # (A) 3.1 k/uL (1.0-4.8); Lymphocytes % (A) 34 %; MCH 29.3 pg (25.0-35.0); MCHC 32.8 g/dL (31.0-37.0); MCV 89.2 fL (80.0-100.0); Mean Platelet Volume 8.4; Monocytes # (A) 0.7 k/uL (0-1.0); Monocytes % (A) 8 %; Neutrophils # (A) 4.8 k/uL (1.3-7.7); Neutrophils % (A) 53 %; Platelet Count 286 k/uL (150-450); RBC 4.79 m/uL (4.30-5.90); RDW 12.8 % (11.5-15.5)
[2024-06-05] MEDS: MORPHINE SULFATE 4 MG/ML SYRINGE IVP STA (01:33)
[2024-06-05] MEDS: SODIUM CHLORIDE 0.9% 1,000 ML IV STA (01:35)
[2024-06-05 01:41] LABS: Appearance,Urine Clear (Clear); Bilirubin,Urine Negative (Negative); Blood,Urine Negative (Negative); Color,Urine Yellow; Glucose,Urine (UA) Negative (Negative); Ketones,Urine Negative (Negative); Leukocyte Esterase,Urine Negative (Negative); Nitrite,Urine Negative (Negative); Protein,Urine Trace (Negative); Specific Gravity,Urine 1.029 (1.001-1.035); Urobilinogen,Urine <2.0 mg/dL (<2.0)
[2024-06-05 01:45] LABS: ALT 42 U/L (4-49); AST 28 U/L (17-59); African American GFR (CKD) >90 (>60 ml/min/1.73 sqM); Albumin 4.6 g/dL (3.5-5.0); Alkaline Phosphatase 57 U/L (38-126); Anion Gap 10 mmol/L; Blood Urea Nitrogen 17 mg/dL (9-20); Calcium 9.6 mg/dL (8.4-10.2); Carbon Dioxide 17 mmol/L (22-30); Chloride 111 mmol/L (98-107); Glucose 103 mg/dL (74-99); Non-African American GFR(CKD) 78 (>60 ml/min/1.73 sqM); Potassium 3.7 mmol/L (3.5-5.1); Sodium 138 mmol/L (137-145); Total Bilirubin 0.6 mg/dL (0.2-1.3); Total Protein 7.1 g/dL (6.3-8.2)
--- NOTE | 2024-06-05 03:45 | CT ---
EXAM: CT Abdomen and Pelvis With Intravenous Contrast CLINICAL HISTORY: ITS.REASON CT Reason: abd pian TECHNIQUE: Axial computed tomography images of the abdomen and pelvis with intravenous contrast. CTDI is 26 mGy and DLP is 1362.2 mGy-cm. This CT exam was performed using one or more of the following dose reduction techniques: automated exposure control, adjustment of the mA and/or kV according to patient size, and/or use of iterative reconstruction technique. COMPARISON: No relevant prior studies available. FINDINGS: Lung bases: Unremarkable. No mass. No consolidation. ABDOMEN: Liver: Unremarkable. No mass. Gallbladder and bile ducts: Cholecystectomy. No ductal dilation. Pancreas: Unremarkable. No mass. No ductal dilation. Spleen: Unremarkable. No splenomegaly. Adrenals: Unremarkable. No mass. Kidneys and ureters: Unremarkable. No solid mass. No hydronephrosis. Stomach and bowel: Diverticulosis, without acute diverticulitis. No small bowel obstruction. No free intraperitoneal air. PELVIS: Appendix: No acute appendicitis. Bladder: Decompressed urinary bladder. Reproductive: Unremarkable as visualized. ABDOMEN and PELVIS: Intraperitoneal space: Unremarkable. No free air. No significant fluid collection. Bones/joints: Degenerative changes of the spine. Multilevel lumbosacral fusion hardware. No acute fracture. No dislocation. Soft tissues: Unremarkable. Vasculature: Atherosclerotic changes of the aorta. No abdominal aortic aneurysm. Lymph nodes: Unremarkable. No enlarged lymph nodes. IMPRESSION: No acute findings in the abdomen or pelvis.
[2024-06-05] MEDS: HYDROmorphone 1 MG/ML 1 ML SYRINGE IVP STA (04:23)
[2024-06-05 04:52] VITALS: BP 121/71; PULSE 80; RESP 18
== END 2024-06-05 04:52 | disposition home or self-care (01) ==
LOC: EC 22:07
CPT/HCPCS: 36415; 74177; 80053; 81003; 83605; 85025; 96361; 96374; 96375; 99284

== ENCOUNTER 2024-07-19 22:18 | Emergency (ER) | payer MEDICARE, OTHER ==
[2024-07-19 23:16] LABS: Basophils # (A) 0.1 k/uL (0-0.2); Basophils % (A) 1 %; Eosinophils # (A) 0.2 k/uL (0-0.7); Eosinophils % (A) 3 %; HCT 41.4 % (39.0-53.0); HGB 13.7 gm/dL (13.0-17.5); Lymphocytes # (A) 2.7 k/uL (1.0-4.8); Lymphocytes % (A) 41 %; MCH 29.9 pg (25.0-35.0); MCV 90.6 fL (80.0-100.0); Mean Platelet Volume 7.9; Monocytes # (A) 0.4 k/uL (0-1.0); Monocytes % (A) 6 %; Neutrophils # (A) 3.2 k/uL (1.3-7.7); Neutrophils % (A) 48 %; Platelet Count 245 k/uL (150-450); RBC 4.56 m/uL (4.30-5.90); RDW 12.9 % (11.5-15.5); WBC 6.7 k/uL (3.8-10.6)
--- NOTE | 2024-07-19 23:27 | XR ---
EXAMINATION TYPE: XR chest 2V DATE OF EXAM: 07/19/2024 COMPARISON: Chest x-ray August 02, 2023 HISTORY: Chest pain TECHNIQUE: Frontal and lateral views of the chest are obtained. FINDINGS: Improved inspiration on current study. There is no focal air space opacity, pleural effusi on, or pneumothorax seen. The cardiac silhouette size remains within normal limits. The osseous st ructures are intact. IMPRESSION: No acute process. [facility], , 07/19/2024 11:25 PM
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
[2024-07-19] MEDS: ASPIRIN 81 MG PO STA (23:53)
[2024-07-20 00:06] LABS: ALT 36 U/L (4-49); AST 27 U/L (17-59); African American GFR (CKD) >90 (>60 ml/min/1.73 sqM); Albumin 4.5 g/dL (3.5-5.0); Alkaline Phosphatase 65 U/L (38-126); Anion Gap 14 mmol/L; Blood Urea Nitrogen 15 mg/dL (9-20); Calcium 9.8 mg/dL (8.4-10.2); Carbon Dioxide 17 mmol/L (22-30); Chloride 109 mmol/L (98-107); Glucose 87 mg/dL (74-99); Magnesium 1.8 mg/dL (1.6-2.3); Non-African American GFR(CKD) >90 (>60 ml/min/1.73 sqM); Potassium 3.9 mmol/L (3.5-5.1); Sodium 140 mmol/L (137-145); Total Bilirubin 0.6 mg/dL (0.2-1.3); Total Protein 7.1 g/dL (6.3-8.2)
[2024-07-20 00:14] LABS: NT-Pro-B-Type Natriuretic Pept <20 pg/mL
[2024-07-20 00:16] VITALS: RESP 17
[2024-07-20] MEDS: MORPHINE SULFATE 4 MG/ML SYRINGE IVP STA (02:57)
[2024-07-20 03:51] VITALS: BP 118/86; PULSE 65; TEMP 97.6
== END 2024-07-20 03:54 | disposition home or self-care (01) ==
LOC: EC 22:18
CPT/HCPCS: 36415; 71046; 80053; 83735; 83880; 84443; 84484; 85025; 85379; 93005; 96374; 99285

== ENCOUNTER 2024-07-24 19:17 | Emergency (ER) | payer MEDICARE, OTHER ==
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
[2024-07-24 20:07] VITALS: BP 101/69; PULSE 69; RESP 16; TEMP 97.9
[2024-07-24] MEDS: ACET/COD 300 MG/30 MG STARTER PACK 6 TAB BTL PO STA (20:53)
== END 2024-07-24 20:56 | disposition home or self-care (01) ==
LOC: EC 19:17
CPT/HCPCS: 99283

== ENCOUNTER 2024-08-07 22:13 | Emergency (ER) | payer MEDICARE, OTHER ==
[2024-08-07 22:26] VITALS: PULSE 90; TEMP 97.5
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
[2024-08-07] MEDS: SODIUM CHLORIDE 0.9% 1,500 ML IV STA (22:58)
[2024-08-07] MEDS: ONDANSETRON 4 MG/2 ML VIAL IVP STA (22:58)
[2024-08-07] MEDS: MORPHINE SULFATE 4 MG/ML SYRINGE IVP STA (22:59)
[2024-08-07 23:28] LABS: Basophils % (A) 1 %; Eosinophils # (A) 0.2 k/uL (0-0.7); Eosinophils % (A) 2 %; HCT 46.2 % (39.0-53.0); HGB 15.2 gm/dL (13.0-17.5); Lymphocytes # (A) 1.7 k/uL (1.0-4.8); Lymphocytes % (A) 22 %; MCH 30.1 pg (25.0-35.0); MCHC 32.8 g/dL (31.0-37.0); MCV 91.5 fL (80.0-100.0); Mean Platelet Volume 7.5; Monocytes # (A) 0.6 k/uL (0-1.0); Monocytes % (A) 8 %; Neutrophils # (A) 4.8 k/uL (1.3-7.7); Neutrophils % (A) 63 %; Platelet Count 225 k/uL (150-450); RBC 5.05 m/uL (4.30-5.90); WBC 7.6 k/uL (3.8-10.6)
[2024-08-07 23:43] LABS: ALT 29 U/L (4-49); AST 27 U/L (17-59); African American GFR (CKD) 87 (>60 ml/min/1.73 sqM); Albumin 4.7 g/dL (3.5-5.0); Alkaline Phosphatase 72 U/L (38-126); Amylase 50 U/L (30-110); Anion Gap 10 mmol/L; Blood Urea Nitrogen 16 mg/dL (9-20); Calcium 9.8 mg/dL (8.4-10.2); Carbon Dioxide 21 mmol/L (22-30); Chloride 108 mmol/L (98-107); Glucose 93 mg/dL (74-99); Lipase 108 U/L (23-300); Magnesium 1.9 mg/dL (1.6-2.3); Non-African American GFR(CKD) 75 (>60 ml/min/1.73 sqM); Potassium 3.5 mmol/L (3.5-5.1); Sodium 139 mmol/L (137-145); Total Bilirubin 0.6 mg/dL (0.2-1.3); Total Protein 7.7 g/dL (6.3-8.2)
--- NOTE | 2024-08-08 01:03 | CT ---
EXAM: CT Abdomen and Pelvis With Intravenous Contrast CLINICAL HISTORY: ITS.REASON CT Reason: diarrhea, diffuse ab pain TECHNIQUE: Axial computed tomography images of the abdomen and pelvis with intravenous contrast. CTDI is 29.6 mGy and DLP is 1460.8 mGy-cm. This CT exam was performed using one or more of the following dose reduction techniques: automated exposure control, adjustment of the mA and/or kV according to patient size, and/or use of iterative reconstruction technique. COMPARISON: No relevant prior studies available. FINDINGS: Lung bases: Unremarkable. No mass. No consolidation. ABDOMEN: Liver: Unremarkable. No mass. Gallbladder and bile ducts: Cholecystectomy. No ductal dilation. Pancreas: Unremarkable. No mass. No ductal dilation. Spleen: Unremarkable. No splenomegaly. Adrenals: Unremarkable. No mass. Kidneys and ureters: Unremarkable. No solid mass. No hydronephrosis. Stomach and bowel: Liquid stool in the colon, concerning for diarrheal disease. No obstruction. No mucosal thickening. PELVIS: Appendix: appendectomy. Bladder: Decompressed urinary bladder. Reproductive: Unremarkable as visualized. ABDOMEN and PELVIS: Intraperitoneal space: Unremarkable. No free air. No significant fluid collection. Bones/joints: Posterior fusion L4-S1. No acute fracture. No dislocation. Soft tissues: Unremarkable. Vasculature: Unremarkable. No abdominal aortic aneurysm. Lymph nodes: Unremarkable. No enlarged lymph nodes. IMPRESSION: Liquid stool in the colon, concerning for diarrheal disease.
[2024-08-08] MEDS: ACETAMINOPHEN TAB 325 MG TAB PO STA (02:56)
[2024-08-08 03:01] VITALS: BP 104/69; RESP 18
== END 2024-08-08 02:58 | disposition home or self-care (01) ==
LOC: EC 22:13
CPT/HCPCS: 36415; 74177; 80053; 82150; 83605; 83690; 83735; 85025; 87324; 96361; 96374; 96375; 99284

== ENCOUNTER 2024-08-14 22:18 | Emergency (ER) | payer MEDICARE ==
[2024-08-14 22:24] VITALS: RESP 18; TEMP 97.6
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
[2024-08-15] MEDS: HYDROmorphone 2 MG TAB PO STA (00:55)
[2024-08-15] MEDS: diphenhydrAMINE 50 MG CAP PO STA (00:56)
[2024-08-15] MEDS: dexAMETHasone 2 MG TAB PO STA (00:56)
[2024-08-15] MEDS: PROCHLORPERAZINE 10 MG TAB PO STA (00:56)
[2024-08-15 01:06] VITALS: BP 131/70; PULSE 75
== END 2024-08-15 01:06 | disposition home or self-care (01) ==
LOC: EC 22:18
CPT/HCPCS: 99283

== ENCOUNTER → 2024-08-23 | Outpatient (CLI) | payer MEDICARE ==
--- NOTE | 2024-08-26 09:00 | MR ---
EXAMINATION TYPE: MRI left ankle without IV contrast DATE OF EXAM: 08/23/2024 COMPARISON: Radiographs 03/19/2023 HISTORY: Left ankle pain, Atrophy of muscle of left ankle Standard multiplanar, multisequence MRI departmental protocol Multiplanar, multisequence images of the left ankle were acquired without contrast. FINDINGS: Achilles tendon is intact. Trace posterior tibialis tenosynovitis. Flexor tendons are otherwise intact. Peroneal tendons are intact. Extensor tendons are intact. Thickened attenuated anterior talofibular and calcaneofibular ligaments consistent with chronic sprai ns. Posterior talofibular ligament is intact. Deep and superficial deltoid ligaments are intact. Plantar fascia is intact. Negative for fracture or marrow replacement. Talar dome is intact. No joint effusions. Superficial so ft tissues are within normal limits. No significant muscular atrophy or edema. Mild scarring in the sinus tarsi. Os trigonum. IMPRESSION: 1. Chronic sprains of the anterior talofibular and calcaneofibular ligaments. No acute tendon or liga ment tear. No fracture. 2. Mild scarring in the sinus tarsi which can be seen with sinus tarsi syndrome. Please correlate. 3. Minimal tibialis posterior tenosynovitis. [facility], , 08/26/2024 8:57 AM
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
== END | disposition home or self-care (01) ==
LOC: RADMRIMAIN 20:15
PROVIDERS: ATTEND Orthopaedic Surgery
DX: M62.572 Muscle wasting and atrophy, not elsewhere classified, left ankle and foot

== ENCOUNTER 2024-09-13 23:31 | Emergency (ER) | payer MEDICARE, OTHER ==
[2024-09-13 23:36] VITALS: RESP 18
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
[2024-09-14] MEDS: HYDROcodone/APAP 10-325MG 1 EACH TAB PO ONE (00:55)
[2024-09-14] MEDS: methylPREDNISolone SOD SUCCI 125 MG/2 ML VIAL IM ONE (00:56)
[2024-09-14] MEDS: ORPHENADRINE 30 MG/ML 2 ML VIAL IM STA (01:00)
[2024-09-14 01:26] VITALS: BP 109/77; PULSE 72; TEMP 97.8
== END 2024-09-14 01:22 | disposition home or self-care (01) ==
LOC: EC 23:31
DX: M54.10 Radiculopathy, site unspecified (principal); M79.641 Pain in right hand; Z88.6 Allergy status to analgesic agent; Z88.8 Allergy status to other drugs, medicaments and biological substances; Z91.030 Bee allergy status; Z87.891 Personal history of nicotine dependence
CPT/HCPCS: 99285; 96372 ×2; J2360; J2919; 99283

== ENCOUNTER 2024-09-15 22:10 | Emergency (ER) | payer MEDICARE ==
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
[2024-09-15] MEDS: diphenhydrAMINE 50 MG CAP PO STA (23:33)
[2024-09-15] MEDS: HYDROmorphone 1 MG/ML 1 ML SYRINGE IM STA (23:33)
[2024-09-15] MEDS: PROCHLORPERAZINE 10 MG TAB PO STA (23:39)
[2024-09-15 23:49] VITALS: BP 137/91; PULSE 76; RESP 17; TEMP 97.6
== END 2024-09-15 23:49 | disposition home or self-care (01) ==
LOC: EC 22:10
DX: S09.90XA Unspecified injury of head, initial encounter (principal); G43.909 Migraine, unspecified, not intractable, without status migrainosus; Z87.891 Personal history of nicotine dependence; Z88.1 Allergy status to other antibiotic agents; Z88.8 Allergy status to other drugs, medicaments and biological substances; W01.0XXA Fall on same level from slipping, tripping and stumbling without subsequent striking against object, initial encounter; Y92.009 Unspecified place in unspecified non-institutional (private) residence as the place of occurrence of the external cause
CPT/HCPCS: 99283; 96372; S0183; J1171

== ENCOUNTER 2024-09-17 21:55 | Emergency (ER) | payer MEDICARE ==
[2024-09-17 21:59] VITALS: RESP 18; TEMP 98
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
[2024-09-17] MEDS: HYDROmorphone 1 MG/ML 1 ML SYRINGE IM STA (22:25)
[2024-09-17] MEDS: dexAMETHasone 2 MG TAB PO STA (22:26)
[2024-09-17] MEDS: PROCHLORPERAZINE 10 MG TAB PO STA (22:26)
[2024-09-17] MEDS: ONDANSETRON 4 MG ODT STARTER PACK 2 TAB BTL PO STA (22:26)
[2024-09-17] MEDS: ACET/COD 300 MG/30 MG STARTER PACK 6 TAB BTL PO STA (22:27)
[2024-09-17 22:39] VITALS: BP 108/66; PULSE 91
== END 2024-09-17 22:29 | disposition home or self-care (01) ==
LOC: EC 21:55
DX: S09.90XA Unspecified injury of head, initial encounter (principal); G43.909 Migraine, unspecified, not intractable, without status migrainosus; Z88.6 Allergy status to analgesic agent; Z91.030 Bee allergy status; Z88.8 Allergy status to other drugs, medicaments and biological substances; Z87.891 Personal history of nicotine dependence; W19.XXXA Unspecified fall, initial encounter
CPT/HCPCS: 99283; 96372; S0183; J1171; J8540; S0119

== ENCOUNTER → 2024-09-21 | Outpatient (CLI) | payer MEDICARE ==
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
== END | disposition home or self-care (01) ==
LOC: RADCTMAIN 11:09
PROVIDERS: ATTEND Orthopaedic Surgery Orthopaedic Trauma
DX: S92.322D Displaced fracture of second metatarsal bone, left foot, subsequent encounter for fracture with routine healing (principal); S92.332B Displaced fracture of third metatarsal bone, left foot, initial encounter for open fracture; S96.12 Laceration of muscle and tendon of long extensor muscle of toe at ankle and foot level; S90.852A Superficial foreign body, left foot, initial encounter

== ENCOUNTER 2024-09-22 23:37 | Emergency (ER) | payer MEDICARE ==
[2024-09-22 23:44] VITALS: TEMP 97.7
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
[2024-09-23] MEDS: HYDROcodone/APAP 7.5-325MG 1 EACH TAB PO ONE (00:45)
--- NOTE | 2024-09-23 00:54 | XR ---
EXAMINATION TYPE: XR knee complete RT DATE OF EXAM: 09/23/2024 CLINICAL HISTORY: Pain after fall TECHNIQUE: Three views of the right knee are obtained. COMPARISON: None. FINDINGS: There is no acute fracture/dislocation evident in right knee. Mild to moderate narrowing p atellofemoral compartment. The overlying soft tissue appears unremarkable. IMPRESSION: There is no acute fracture or dislocation in the right knee. [facility], , 09/23/2024 12:52 AM
[2024-09-23] MEDS: HYDROmorphone 1 MG/ML 1 ML SYRINGE IM STA (02:00)
[2024-09-23 02:09] VITALS: BP 119/75; PULSE 77; RESP 18
== END 2024-09-23 02:02 | disposition home or self-care (01) ==
LOC: EC 23:37
DX: S83.91XA Sprain of unspecified site of right knee, initial encounter (principal); Z87.891 Personal history of nicotine dependence; Z88.5 Allergy status to narcotic agent; Z91.030 Bee allergy status; Z88.6 Allergy status to analgesic agent; Z88.8 Allergy status to other drugs, medicaments and biological substances
CPT/HCPCS: 73562; 99283; 96372; J1171

== ENCOUNTER 2024-09-27 00:49 | Emergency (ER) | payer MEDICARE, OTHER ==
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
--- NOTE | 2024-09-27 01:30 | XR ---
EXAM: XR Lumbosacral Spine, 2 or 3 Views CLINICAL HISTORY: ITS.REASON XR Reason: Pain TECHNIQUE: Frontal and lateral views of the lumbar spine and sacrum. COMPARISON: is made to prior exam dated November 06, 2022 FINDINGS: Vertebrae: Postoperative changes L4-S1 interbody fusion. Orthopedic hardware appears intact and well aligned. No acute fracture. Sacrum/coccyx: Unremarkable as visualized. No acute fracture. Disc spaces: See above. Soft tissues: Unremarkable. IMPRESSION: No acute findings in the lumbar spine. Stable postoperative changes L4-S1 without evidence of hardware complication.
[2024-09-27] MEDS: LIDOCAINE 4% PATCH TOPICAL ONE (01:31)
[2024-09-27] MEDS: ORPHENADRINE 30 MG/ML 2 ML VIAL IM STA (01:33)
[2024-09-27] MEDS: DEXAMETHASONE SOD PHOSPHATE 10 MG/ML 1 ML VIAL IM STA (01:33)
[2024-09-27] MEDS: HYDROmorphone 1 MG/ML 1 ML SYRINGE IM STA ×2 (01:34→02:39)
[2024-09-27 02:47] VITALS: BP 110/81; PULSE 72; RESP 19; TEMP 98
== END 2024-09-27 02:47 | disposition home or self-care (01) ==
LOC: EC 00:49
DX: S39.012A Strain of muscle, fascia and tendon of lower back, initial encounter (principal); Z87.891 Personal history of nicotine dependence; Z88.6 Allergy status to analgesic agent; Z91.030 Bee allergy status; Z88.8 Allergy status to other drugs, medicaments and biological substances; X50.0XXA Overexertion from strenuous movement or load, initial encounter
CPT/HCPCS: 99283; 96372; 72100; J1100; J2360; J1171

== ENCOUNTER 2024-09-27 23:40 | Emergency (ER) | payer MEDICARE, OTHER ==
[2024-09-27 23:54] VITALS: TEMP 97.6
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
[2024-09-28] MEDS: DEXAMETHASONE SOD PHOSPHATE 10 MG/ML 1 ML VIAL IM STA (00:14)
[2024-09-28] MEDS: LIDOCAINE 4% PATCH TOPICAL ONE (00:14)
[2024-09-28] MEDS: HYDROmorphone 1 MG/ML 1 ML SYRINGE IM STA ×2 (00:16→02:15)
[2024-09-28 02:09] VITALS: BP 124/76; PULSE 72; RESP 18
== END 2024-09-28 02:23 | disposition home or self-care (01) ==
LOC: EC 23:40
DX: G89.29 Other chronic pain (principal); M54.9 Dorsalgia, unspecified; Z88.6 Allergy status to analgesic agent; Z91.030 Bee allergy status; Z87.891 Personal history of nicotine dependence; X50.1XXA Overexertion from prolonged static or awkward postures, initial encounter
CPT/HCPCS: 99283; 96372 ×2; J1171

== ENCOUNTER 2024-10-10 00:46 | Emergency (ER) | payer MEDICARE, OTHER ==
[2024-10-10 00:52] VITALS: BP 118/78; PULSE 78; RESP 18; TEMP 97.8
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
[2024-10-10] MEDS: HYDROmorphone 1 MG/ML 1 ML SYRINGE IM STA (01:18)
[2024-10-10] MEDS: diphenhydrAMINE 50 MG/ML 1 ML VIAL IM STA (01:21)
[2024-10-10] MEDS: METOCLOPRAMIDE 5 MG/ML 2 ML VIAL IM STA (01:22)
== END 2024-10-10 01:27 | disposition home or self-care (01) ==
LOC: EC 00:46
DX: G43.909 Migraine, unspecified, not intractable, without status migrainosus (principal); Z87.891 Personal history of nicotine dependence; Z88.6 Allergy status to analgesic agent; Z91.030 Bee allergy status; Z88.8 Allergy status to other drugs, medicaments and biological substances
CPT/HCPCS: 99283; 96372 ×3; J1200; J2765; J1171

== ENCOUNTER 2024-10-15 02:07 | Emergency (ER) | payer MEDICARE ==
[2024-10-15 03:50] LABS: Basophils # (A) 0.1 k/uL (0-0.2); Basophils % (A) 1 %; Eosinophils # (A) 0.3 k/uL (0-0.7); Eosinophils % (A) 3 %; HGB 13.5 gm/dL (13.0-17.5); Lymphocytes # (A) 2.8 k/uL (1.0-4.8); Lymphocytes % (A) 38 %; MCHC 32.3 g/dL (31.0-37.0); MCV 89.8 fL (80.0-100.0); Mean Platelet Volume 7.5; Monocytes # (A) 0.5 k/uL (0-1.0); Monocytes % (A) 6 %; Neutrophils # (A) 3.8 k/uL (1.3-7.7); Neutrophils % (A) 51 %; Platelet Count 241 k/uL (150-450); RBC 4.67 m/uL (4.30-5.90); WBC 7.6 k/uL (3.8-10.6)
[2024-10-15 04:05] LABS: ALT 42 U/L (4-49); AST 27 U/L (17-59); African American GFR (CKD) >90 (>60 ml/min/1.73 sqM); Albumin 4.4 g/dL (3.5-5.0); Alkaline Phosphatase 57 U/L (38-126); Anion Gap 10 mmol/L; Blood Urea Nitrogen 18 mg/dL (9-20); Calcium 9.5 mg/dL (8.4-10.2); Carbon Dioxide 15 mmol/L (22-30); Chloride 113 mmol/L (98-107); Glucose 99 mg/dL (74-99); Non-African American GFR(CKD) >90 (>60 ml/min/1.73 sqM); Potassium 3.4 mmol/L (3.5-5.1); Sodium 138 mmol/L (137-145); Total Bilirubin 0.6 mg/dL (0.2-1.3); Total Protein 6.9 g/dL (6.3-8.2)
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
[2024-10-15] MEDS: ASPIRIN 81 MG PO STA (05:02)
[2024-10-15] MEDS: NITROGLYCERIN SL TABS 0.4 MG TAB SUBLINGUAL STA (05:03)
[2024-10-15] MEDS: MORPHINE SULFATE 4 MG/ML SYRINGE IV STA (05:04)
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
[2024-10-15] MEDS: ONDANSETRON 4 MG/2 ML VIAL IVP STA ×2 (05:06→07:49)
[2024-10-15 05:46] LABS: Lipase 206 U/L (23-300); Magnesium 1.9 mg/dL (1.6-2.3)
[2024-10-15 05:55] LABS: NT-Pro-B-Type Natriuretic Pept <20 pg/mL
[2024-10-15] MEDS: MORPHINE SULFATE 4 MG/ML SYRINGE IVP STA (06:08)
[2024-10-15] MEDS: FAMOTIDINE 20 MG TAB PO STA (06:11)
[2024-10-15 06:37] LABS: Partial Thromboplastin Time 24.6 sec (22.0-30.0)
[2024-10-15] MEDS: POTASSIUM BICARBONATE/CIT AC 20 MEQ TABLET.EFF PO ONE (07:41)
[2024-10-15] MEDS: ACETAMINOPHEN TAB 500 MG TAB PO STA (07:49)
[2024-10-15 07:56] VITALS: BP 98/77; PULSE 66; RESP 17; TEMP 98
== END 2024-10-15 08:05 | disposition home or self-care (01) ==
LOC: EC 02:07
DX: R07.9 Chest pain, unspecified (principal); E78.5 Hyperlipidemia, unspecified; I25.10 Atherosclerotic heart disease of native coronary artery without angina pectoris; Z88.6 Allergy status to analgesic agent; Z91.030 Bee allergy status; Z88.8 Allergy status to other drugs, medicaments and biological substances
CPT/HCPCS: 36415; 93005; 83880; 80053; 82550; 83690; 83735; 84484; 85025; 85610; 85730; 71046; 99284; 96374; 96376; J2270

== ENCOUNTER 2024-10-28 23:21 | Emergency (ER) | payer MEDICARE, OTHER ==
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
[2024-10-29 00:48] LABS: Appearance,Urine Clear (Clear); Bilirubin,Urine Negative (Negative); Blood,Urine Negative (Negative); Color,Urine Yellow; Glucose,Urine (UA) Negative (Negative); Ketones,Urine Negative (Negative); Leukocyte Esterase,Urine Negative (Negative); Nitrite,Urine Negative (Negative); PH, Urine 5.5 (5.0-8.0); Protein,Urine Trace (Negative); Specific Gravity,Urine 1.031 (1.001-1.035)
[2024-10-29 01:16] LABS: ALT 21 U/L (4-49); African American GFR (CKD) >90 (>60 ml/min/1.73 sqM); Amylase 45 U/L (30-110); Anion Gap 10 mmol/L; Blood Urea Nitrogen 20 mg/dL (9-20); Calcium 9.8 mg/dL (8.4-10.2); Carbon Dioxide 18 mmol/L (22-30); Chloride 111 mmol/L (98-107); Lipase 84 U/L (23-300); Non-African American GFR(CKD) 89 (>60 ml/min/1.73 sqM); Sodium 139 mmol/L (137-145)
[2024-10-29 01:33] LABS: AST 39 U/L (17-59); Albumin 4.8 g/dL (3.5-5.0); Alkaline Phosphatase 45 U/L (38-126); Glucose 99 mg/dL (74-99); Potassium 4.7 mmol/L (3.5-5.1); Total Bilirubin 0.8 mg/dL (0.2-1.3); Total Protein 7.5 g/dL (6.3-8.2)
[2024-10-29 08:04] LABS: Basophils % (A) 1 %; Eosinophils # (A) 0.2 k/uL (0-0.7); Eosinophils % (A) 4 %; HCT 41.2 % (39.0-53.0); HGB 13.7 gm/dL (13.0-17.5); Lymphocytes % (A) 46 %; MCH 29.8 pg (25.0-35.0); MCHC 33.2 g/dL (31.0-37.0); MCV 89.6 fL (80.0-100.0); Mean Platelet Volume 7.6; Monocytes # (A) 0.4 k/uL (0-1.0); Monocytes % (A) 8 %; Neutrophils # (A) 1.6 k/uL (1.3-7.7); Neutrophils % (A) 38 %; Platelet Count 196 k/uL (150-450); RBC 4.59 m/uL (4.30-5.90); RDW 13.1 % (11.5-15.5); WBC 4.3 k/uL (3.8-10.6)
[2024-10-29 08:06] VITALS: RESP 16; TEMP 98
[2024-10-29] MEDS: ONDANSETRON 4 MG/2 ML VIAL IM STA (08:48)
[2024-10-29] MEDS: HYDROmorphone 1 MG/ML 1 ML SYRINGE IM STA (08:48)
[2024-10-29 08:51] VITALS: BP 120/86; PULSE 71
== END 2024-10-29 08:55 | disposition home or self-care (01) ==
LOC: EC 23:21
DX: R10.9 Unspecified abdominal pain (principal); Z87.891 Personal history of nicotine dependence; Z88.6 Allergy status to analgesic agent; Z91.030 Bee allergy status; Z88.8 Allergy status to other drugs, medicaments and biological substances
CPT/HCPCS: 36415; 80053; 81003; 82150; 83605; 83690; 85025; 99284

== ENCOUNTER 2024-11-07 23:19 | Emergency (ER) | payer MEDICARE, OTHER ==
[2024-11-07 23:25] VITALS: BP 138/76; PULSE 79; RESP 20; TEMP 98
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
== END 2024-11-08 02:25 | disposition home or self-care (01) ==
LOC: EC 23:19
DX: R51.9 Headache, unspecified (principal); Z87.891 Personal history of nicotine dependence; Z91.030 Bee allergy status; Z88.6 Allergy status to analgesic agent; Z88.8 Allergy status to other drugs, medicaments and biological substances
CPT/HCPCS: 99283

== ENCOUNTER 2024-11-08 21:58 | Emergency (ER) | payer MEDICARE ==
[2024-11-08 22:03] VITALS: BP 141/76; PULSE 78; RESP 18
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
[2024-11-08] MEDS: BUTALB/APAP/CAFF 50-325-40MG TAB PO STA (22:12)
[2024-11-08] MEDS: diphenhydrAMINE 50 MG/ML 1 ML VIAL IM STA (22:12)
[2024-11-08] MEDS: METOCLOPRAMIDE 5 MG/ML 2 ML VIAL IM STA (22:13)
== END 2024-11-08 22:18 | disposition home or self-care (01) ==
LOC: EC 21:58
DX: G89.29 Other chronic pain (principal); R51.9 Headache, unspecified; Z88.6 Allergy status to analgesic agent; Z91.030 Bee allergy status; Z87.891 Personal history of nicotine dependence
CPT/HCPCS: 99283; 96372 ×2; J1200; J2765

== ENCOUNTER 2024-11-14 23:01 | Emergency (ER) | payer MEDICARE ==
[2024-11-14 23:06] VITALS: RESP 18
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
[2024-11-15] MEDS: HYDROmorphone 1 MG/ML 1 ML SYRINGE IM STA (00:06)
[2024-11-15 00:13] VITALS: BP 123/74; PULSE 84; TEMP 97.2
--- NOTE | 2024-11-15 01:45 | XR ---
EXAM: XR Right Knee, 3 Views CLINICAL HISTORY: ITS.REASON XR Reason: pain s/p fall on wednesday TECHNIQUE: Three views of the right knee. COMPARISON: 08/23/24 FINDINGS: Bones/joints: No acute fracture. No dislocation. No significant joint effusion. Soft tissues: Unremarkable. IMPRESSION: No acute osseous findings.
== END 2024-11-15 00:13 | disposition home or self-care (01) ==
LOC: EC 23:01
DX: M25.561 Pain in right knee (principal); Z88.6 Allergy status to analgesic agent; Z88.8 Allergy status to other drugs, medicaments and biological substances; Z91.030 Bee allergy status; Z87.891 Personal history of nicotine dependence; W01.0XXA Fall on same level from slipping, tripping and stumbling without subsequent striking against object, initial encounter
CPT/HCPCS: 96372; 99283

== ENCOUNTER 2025-02-28 23:06 | Emergency (ER) | payer OTHER ==
[2025-03-01] MEDS: HYDROmorphone 1 MG/ML 1 ML SYRINGE IM STA (00:29)
--- NOTE | 2025-03-01 00:44 | XR ---
EXAMINATION TYPE: XR shoulder complete LT DATE OF EXAM: 03/01/2025 12:39 AM COMPARISON: None CLINICAL INDICATION: Male, 44 years old with history of pain; PHH, pain TECHNIQUE: XR shoulder complete LT; examined in AP, internally rotated and scapular Y projections. FINDINGS: No evidence of acute osseous pathology, joint dislocation, or soft tissue swelling. The remaining po rtions of the visualized chest are unremarkable. IMPRESSION: No acute osseous pathology. [facility], , 03/01/2025 12:41 AM
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
[2025-03-01] MEDS: HYDROmorphone 0.5 MG/0.5 ML SYRINGE IM STA (01:12)
[2025-03-01 01:18] VITALS: BP 102/72; PULSE 76; RESP 18; TEMP 98.2
== END 2025-03-01 01:19 | disposition home or self-care (01) ==
LOC: EC 23:06
DX: S46.912A Strain of unspecified muscle, fascia and tendon at shoulder and upper arm level, left arm, initial encounter (principal); Z87.891 Personal history of nicotine dependence; Z88.6 Allergy status to analgesic agent; Z91.030 Bee allergy status; X50.9XXA Other and unspecified overexertion or strenuous movements or postures, initial encounter
CPT/HCPCS: 73030; 99283; 96372 ×2; J1171 ×2

== ENCOUNTER 2025-03-12 22:57 | Emergency (ER) | payer OTHER ==
[2025-03-12 23:16] VITALS: BP 119/74; PULSE 75; RESP 18; TEMP 97.5
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
[2025-03-12] MEDS: HYDROmorphone 1 MG/ML 1 ML SYRINGE IM STA (23:49)
[2025-03-13] MEDS: ACET/COD 300 MG/30 MG STARTER PACK 6 TAB BTL PO STA (00:04)
--- NOTE | 2025-03-13 01:21 | XR ---
EXAM: XR Left Shoulder Complete, 2 or More Views CLINICAL HISTORY: ITS.REASON XR Reason: pain TECHNIQUE: Two or more views of the left shoulder. COMPARISON: No relevant prior studies available. FINDINGS: Bones/joints: Unremarkable. No acute fracture. No dislocation. Soft tissues: Unremarkable. IMPRESSION: Normal left shoulder x-rays.
== END 2025-03-13 00:17 | disposition home or self-care (01) ==
LOC: EC 22:57
DX: S40.012A Contusion of left shoulder, initial encounter (principal); M25.512 Pain in left shoulder; Z87.891 Personal history of nicotine dependence; Z88.6 Allergy status to analgesic agent; Z91.030 Bee allergy status; Z88.8 Allergy status to other drugs, medicaments and biological substances; W34.00XA Accidental discharge from unspecified firearms or gun, initial encounter
CPT/HCPCS: 73030; 99283; 96372; J1171

== ENCOUNTER 2025-04-06 22:41 | Emergency (ER) | payer MEDICARE, OTHER ==
[2025-04-06 22:45] VITALS: RESP 18
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
[2025-04-06] MEDS: SODIUM CHLORIDE 0.9% 1,000 ML IV ONE (23:39)
[2025-04-06] MEDS: ONDANSETRON 4 MG/2 ML VIAL IVP STA (23:39)
[2025-04-06] MEDS: PANTOPRAZOLE 40 MG/10 ML VIAL IVP STA (23:42)
[2025-04-07 00:24] LABS: African American GFR (CKD) >90 (>60 ml/min/1.73 sqM); Anion Gap 13 mmol/L; Blood Urea Nitrogen 15 mg/dL (9-20); Calcium 10.3 mg/dL (8.4-10.2); Carbon Dioxide 23 mmol/L (22-30); Chloride 102 mmol/L (98-107); Glucose 89 mg/dL (74-99); Non-African American GFR(CKD) >90 (>60 ml/min/1.73 sqM); Potassium 3.9 mmol/L (3.5-5.1); Sodium 138 mmol/L (137-145)
[2025-04-07 00:48] VITALS: TEMP 98.3
[2025-04-07] MEDS: ONDANSETRON 4 MG/2 ML VIAL IVP STA (01:06)
[2025-04-07] MEDS: ACETAMINOPHEN TAB 325 MG TAB PO STA (01:08)
[2025-04-07 01:12] VITALS: BP 138/85; PULSE 66
== END 2025-04-07 01:14 | disposition home or self-care (01) ==
LOC: EC 22:41
DX: T18.9XXA Foreign body of alimentary tract, part unspecified, initial encounter (principal); Z87.891 Personal history of nicotine dependence; Z88.6 Allergy status to analgesic agent; Z91.030 Bee allergy status; Z88.8 Allergy status to other drugs, medicaments and biological substances; V48.2XXA Person on outside of car injured in noncollision transport accident in nontraffic accident, initial encounter
CPT/HCPCS: 36415; 93005; 80048; 83605; 99283; 96374; 96375; 96361; 96376; J2405 ×2; J2470

== ENCOUNTER 2025-04-12 22:59 | Emergency (ER) | payer OTHER ==
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
[2025-04-12] MEDS: HYDROmorphone 1 MG/ML 1 ML SYRINGE IM STA (23:15)
--- NOTE | 2025-04-13 00:32 | XR ---
EXAM: XR Right Knee, 3 Views CLINICAL HISTORY: ITS.REASON XR Reason: knee cap pain TECHNIQUE: Three views of the right knee. COMPARISON: No relevant prior studies available. FINDINGS: Bones/joints: Unremarkable. No acute fracture. No dislocation. Soft tissues: Unremarkable. IMPRESSION: Normal right knee x-rays.
[2025-04-13 00:37] VITALS: BP 133/77; PULSE 85; RESP 18; TEMP 98.6
== END 2025-04-13 00:37 | disposition home or self-care (01) ==
LOC: EC 22:59
DX: M25.561 Pain in right knee (principal); Z87.891 Personal history of nicotine dependence; Z88.6 Allergy status to analgesic agent; Z91.030 Bee allergy status; Z88.8 Allergy status to other drugs, medicaments and biological substances
CPT/HCPCS: 73562; 99283; 96372; J1171